=== PATIENT | male | born 1940 | race Caucasian/White ===

== ENCOUNTER 2018-11-16 12:06 | Emergency (ER) | payer MEDICARE, SELFPAY ==
[2018-11-16 12:07] VITALS: BP 130/99; PULSE 101; RESP 20; TEMP 36.1; O2SAT 97; BMI 26.7
--- NOTE | 2018-11-16 12:49 | ED.VISSUMM ---
- ER Visit Summary Date of Service: 11/16/18 Chief Complaint: [] Amputation tip of left thumb right hand dominant History of Present Illness: The patient is a 78 M [] history of heart disease diabetes hypertension on a blood thinner was working with a saw when he inadvertently suffered amputation complete of the left thumb tip, the laceration occurred about a half an hour ago no other complaints, he is right-handed Physical Examination: [] The patient is resting cuffing the bed he is very hard of hearing his blood pressure is 130/90 General, no distress resting comfortably HEENT is generally unremarkable The neck is supple no adenopathy Cardiovascular, regular rate and rhythm Lungs, clear bilateral Abdomen, soft nontender Extremities, left thumb he has a complete amputation left thumb tip it is just distal to the IP joint it involves the entire nail, the fragment is available it was carefully placed in the appropriate ICE non-wet container, he has minimal bleeding from the thumb stump the rest of the extremity and hand exam are unremarkable Neurologic, awake alert answering questions appropriately moving all 4 extremities Test Results: [] Emergency Department Course and Treatment: [] Cates for insurance reasons he needs to go to [facility], we spoke with the transfer service, spoke with the trauma attending who have accepted him in transfer they will arrange for him to be seen immediately by hand service in the ED,, the patient was started on IM Unasyn as he wants to be transferred by private vehicle Hep-Lock is obtained with screening labs will not delay his transfer to wait for these labs we will asked that he instruct his follow-up physicians to call for those results and will arrange for immediate transfer so he can be seen in an expedited fashion Treatment Plan: [] Disposition: [] Transfer via private vehicle to [facility] emergency department Impression: [] Complete amputation tip of left thumb This note was generated with [employer] dictation software. It may contain incorrect words, spelling, and punctuation that were not noted in review of the chart prior to signing ED Disposition - Plan for ED Patient: Chief Complaint: Upper Extremity Injury Referrals: Jose Clarke [Primary Care Provider] -
--- NOTE | 2018-11-16 12:54 | ED.DCSUM_ITS ---
- ER Visit Summary Date of Service: 11/16/18 Chief Complaint: [] Amputation tip of left thumb right hand dominant History of Present Illness: The patient is a 78 M [] history of heart disease diabetes hypertension on a blood thinner was working with a saw when he inadvertently suffered amputation complete of the left thumb tip, the laceration occurred about a half an hour ago no other complaints, he is right-handed Physical Examination: [] The patient is resting cuffing the bed he is very hard of hearing his blood pressure is 130/90 General, no distress resting comfortably HEENT is generally unremarkable The neck is supple no adenopathy Cardiovascular, regular rate and rhythm Lungs, clear bilateral Abdomen, soft nontender Extremities, left thumb he has a complete amputation left thumb tip it is just distal to the IP joint it involves the entire nail, the fragment is available it was carefully placed in the appropriate ICE non-wet container, he has minimal bleeding from the thumb stump the rest of the extremity and hand exam are unremarkable Neurologic, awake alert answering questions appropriately moving all 4 extremities Test Results: [] Emergency Department Course and Treatment: [] Cates for insurance reasons he needs to go to [facility], we spoke with the transfer service, spoke with the trauma attending who have accepted him in transfer they will arrange for him to be seen immediately by hand service in the ED,, the patient was started on IM Unasyn as he wants to be transferred by private vehicle Hep-Lock is obtained with screening labs will not delay his transfer to wait for these labs we will asked that he instruct his follow-up physicians to call for those results and will arrange for immediate transfer so he can be seen in an expedited fashion Treatment Plan: [] Disposition: [] Transfer via private vehicle to [facility] emergency department Impression: [] Complete amputation tip of left thumb This note was generated with [employer] dictation software. It may contain incorrect words, spelling, and punctuation that were not noted in review of the chart prior to signing ED Disposition - Plan for ED Patient: Chief Complaint: Upper Extremity Injury Referrals: Jose Clarke [Primary Care Provider] -
--- NOTE | 2018-11-16 12:54 | ED.DEP ---
ED Disposition - Plan for ED Patient: Chief Complaint: Upper Extremity Injury Instructions: ED Laceration Amputation Finger Tip Open Tx Referrals: Jose Clarke [Primary Care Provider] - Additional Instructions: Go directly to [facility] emergency department to be seen by hand and trauma service
[2018-11-16 13:00] LABS: Absolute Lymphocyte Count 2.51 X10^3/ul (0.83-4.51); Absolute Neutrophil Count 7.6 X10^3/uL (2.0-7.7); Basophil# 0.09 X10^3/uL; Basophil% 0.8 % (0-1); Eosinophil# 0.13 X10^3/uL; Eosinophils% 1.1 % (0-5); Hemoglobin 12.7 g/dl (13.0-16.5); Lymphocyte # 2.51 X10^3/ul (4.0); Mean Corp Hgb Conc 32.6 g/gl (32-36); Mean Corpuscular Hgb 30.1 pg (27.0-32.0); Mean Corpuscular Volume 92.4 fL (80-94); Mean Platelet Vol. 9.6 fl (6.2-12.0); Monocyte# 1.08 X10^3/uL; Monocyte% 9.4 % (0-10); Neutrophil # 7.59 X10^3/uL (2.7-7.7); Neutrophil % 66.4 % (47-70); Platelet Count 321 K/mm3 (150-450); RBC Distribution Width CV 13.4 % (11.6-14.6); RBC Distribution Width SD 45.1 fl (35.1-43.9); Red Blood Count 4.22 M/mm3 (4.6-6.2); White Blood Count 11.4 K/mm3 (4.4-11.0)
[2018-11-16 13:01] LABS: POSITIVE COUNT NO; POSITIVE DIFFERENTIAL NO; POSITIVE MORPHOLOGY NO
[2018-11-16] MEDS: Ondansetron 4 MG/2 ML Vial IV (13:02)
[2018-11-16] MEDS: Morphine 4 MG/ML Syringe IV (13:02)
--- NOTE | 2018-11-16 13:10 | RAD_ITS ---
STUDY: X-RAY - LEFT HAND REASON FOR EXAM: Male, 78 years old. Laceration of the thumb. TECHNIQUE: 3 view(s) of the hand. COMPARISON: None. FINDINGS: Normal radiocarpal articulation. Normal distal radioulnar joint. Normal visualized carpal bones. Normal carpal articulations Normal carpometacarpal articulation of the thumb. Normal second through fifth carpometacarpal joints. Normal metacarpi. Normal metacarpophalangeal joint of the thumb. Normal interphalangeal joint of the thumb. Comminuted fracture of the distal phalanx of the thumb. There is evidence of a soft tissue amputation of the distal portion of the thumb. Normal metacarpophalangeal joints of the second through fifth fingers. Normal proximal and distal interphalangeal joints of the second through fifth fingers. Normal phalanges of the second through fifth fingers. RAD/Hand Min 3 Views IMPRESSION: Comminuted nondisplaced fracture of the distal phalanx of the thumb with soft tissue amputation overlying the distal phalanx. Electronically Signed: Mario Valle MD at 14:07 EST , Service support ,
[2018-11-16 13:12] LABS: Prothrombin Time (Protime)PT. 12.7 SECONDS (11.7-14.9)
[2018-11-16 13:14] LABS: Anion Gap 9 (5-15); BUN 32 mg/dL (7-18); BUN/Creat Ratio 17.4 RATIO (10-20); Calcium,Total 8.4 mg/dL (8.5-10.1); Chloride 108 mmol/L (98-107); Creatinine, Serum 1.84 mg/dL (0.70-1.30); EST Glomerular Filtration Rate 38 mL/min (>60); Est Glom Filt Rate - Afr Amer 46 mL/min (>60); Glucose 61 mg/dL (74-106); Potassium 3.2 mmol/L (3.5-5.1); Sodium Level 142 mmol/L (136-145)
[2018-11-16 14:31] VITALS: BP 158/64; PULSE 85; RESP 16; O2SAT 94
--- NOTE | 2018-11-16 14:34 | NURSING ---
2 attempts to call to battery charger tester at [facility] to give report. no answer or message machine to leave call back number. [phone] catalino nunez, rn [id number]
== END 2018-11-16 15:52 | disposition short-term general hospital (02) ==
PROVIDERS: Emergency Provider Emergency Medicine; Family Provider Family Medicine; PCP Family Medicine
DX: S68.012A Complete traumatic metacarpophalangeal amputation of left thumb, initial encounter (principal); W27.0XXA Contact with workbench tool, initial encounter; Y93.9 Activity, unspecified; Y92.9 Unspecified place or not applicable; I25.10 Atherosclerotic heart disease of native coronary artery without angina pectoris; E11.9 Type 2 diabetes mellitus without complications; I10 Essential (primary) hypertension; Z79.82 Long term (current) use of aspirin; Z79.4 Long term (current) use of insulin; Z79.84 Long term (current) use of oral hypoglycemic drugs; Z79.899 Other long term (current) drug therapy
CPT/HCPCS: 73130; 80048; 85025; 85610; 96372; 96374; 96375; 99284; A4216; J0295; J2405

== ENCOUNTER 2020-06-13 10:42 | Emergency (ER) | payer MEDICARE, SELFPAY ==
[2020-06-13 10:43] VITALS: BP 146/72; PULSE 102; RESP 18; TEMP 36.1; O2SAT 96; BMI 22.8
[2020-06-13 10:44] VITALS: BP 146/72; PULSE 102; RESP 18; TEMP 36.1; O2SAT 96
--- NOTE | 2020-06-13 10:49 | ED.VIS.GEN ---
History of Present Illness <Mk Terry - Last Filed: 06/13/20 11:44> Informant: Patient Onset: Today Context: Gradual Onset Timing: Continuous Quality: Pressure Location: Bladder Current Severity: Severe Maximum Severity: Severe Worsened by: Nothing Relieved by: Nothing Associated Symptoms: Denies Narrative: 80-year-old male presents with difficulty urinating. He has not been able to empty his bladder since last evening. He has severe urge to urinate but is only able to urinate very small amounts. No history of prostate surgery or any issues with his prostate that he knows about. No history of abdominal surgery. He has no other symptoms at this time. No medication changes. No recent surgery Prior similar symptoms: No Recent Illness/Hospitalization: No <Arpit Navarro - Last Filed: 06/13/20 12:10> Chief Complaint: Complaint Past Medical History <Mk Terry - Last Filed: 06/13/20 11:44> Prior records reviewed: Yes Past Medical History: - - Hypertension and chronic kidney disease Surgical History: appendectomy Lives: With Family Smoking Status: Never smoker Alcohol: Occasional <LilliamdellaArpit - Last Filed: 06/13/20 12:10> - Allergies and Home Meds Allergies/Adverse Reactions: Allergies No Known Allergies Allergy (Verified 06/13/20 10:44) Primary Care Physician: Aniket Costa MD [STAFF PHYSICIAN] - As soon as possible Review of Systems General: Denies: Chills, Fever, Sweats Eyes: Denies: Visual changes - bilaterally, Diplopia ENT: Denies: Rhinorrhea, Sore throat Cardiovascular: Denies: Chest pain, Palpitations Respiratory: Denies: Dyspnea, Cough, Dyspnea on exertion Gastrointestinal: Denies: Abdominal pain, Nausea, Vomiting, Diarrhea, Melena, Hematochezia Genitourinary: Reports: - - Urinary retention. Denies: Dysuria, Hematuria, Frequency Musculoskeletal: Denies: Back pain, Extremity Pain Skin: Denies: Rash, Wounds Neurological: Denies: Headache, Weakness, Numbness <MelanieArpit - Last Filed: 06/13/20 12:10> Physical Exam Vital Signs/Narrative: Vital Signs Temp Pulse Resp BP Pulse Ox 06/13/20 10:44 97 F L 102 H 18 146/72 H 96 06/13/20 10:43 97 F L 102 H 18 146/72 H 96 <Mk Terry - Last Filed: 06/13/20 11:44> Vital Signs/Narrative: Vital Signs Temp Pulse Resp BP Pulse Ox 06/13/20 10:43 97 F L 102 H 18 146/72 H 96 Inital Vital Signs reviewed: Yes General: Well nourished, Well developed, No Acute Distress Head: Normocephalic, Atraumatic Eyes: Perrl, EOMI ENT: Moist mucous membranes, No rhinorrhea Neck: Supple, Nontender Cardiovascular: Regular rate, Regular rhythm, No murmurs Respiratory: No distress, CTA bilaterally, Chest nontender Abdomen: Soft, Nontender, Nondistended, Normal bowel sounds : - - Normal inspection no swelling no erythema no rash no gangrenous or necrotic tissue no inguinal lymphadenopathy no discharge no pain on palpation of either testicle Back: Nontender, Normal Inspection Extremities: Nontender, No edema Skin: Normal color, No rash Neurological: Alert, Oriented x3, Cranial nerves II-XII grossly intact, Normal Strength, Normal Sensation Psychological: Normal affect, Normal Mood <Arpit Navarro - Last Filed: 06/13/20 12:10> Diagnostic/Tx/Re-eval - Medical Decision Making I performed a history and physical examination of the patient and discussed management plan with the physician financial services assistant. I reviewed the physician financial services assistant's note and agree with the documented findings and plan of care. Patient with no history of urinary retention or known prostate issues. States he urinated a couple times before he went to bed and everything seemed normal. He has been unable to urinate since about . Valero catheter was placed without significant difficulty. Over 1200 cc of urine was removed. He has never had a PSA checked that he knows about and we will check that today. We will also check a urinalysis. Plan will be for urologic follow-up. Mk Terry DO, MS <Mk Terry - Last Filed: 06/13/20 11:44> - Medical Decision Making Urinalysis was unremarkable. We will place him on Bactrim. Urine culture was sent. He will be sent home with a leg bag. <Arpit Navarro - Last Filed: 06/13/20 12:10> ED Disposition <Mk Terry - Last Filed: 06/13/20 11:44> <Arpit Navarro - Last Filed: 06/13/20 12:10> - Plan for ED Patient: Disposition: Home or Assisted Living Diagnosis: Acute urinary retention Prescriptions: Smz/Tmp Ds [Bactrim Ds] 1 tab PO BID #14 tab Prescription Printed Referrals: Aniket Costa MD [STAFF PHYSICIAN] - As soon as possible
[2020-06-13 11:30] LABS: Bacteria 0 SEEN /hpf (None Seen); Mucous, Urine 0 SEEN /hpf (<or=2+); Squamous Epithelial Cells - UA 0 SEEN /hpf (0-5); White Blood Cells 0 SEEN /hpf (0-5)
[2020-06-13 11:33] LABS: Color, Urine Yellow (Yellow); Glucose, Dipstick Normal (Normal); Ketone-Dipstick Negative (Negative); Leukocyte Esterase-Dipstick Negative /ul (Negative); Nitrite-Dipstick Negative (Negative); Occult Blood-Urine 250 /ul (Negative); Protein-Dipstick Negative (Negative); Specific Gravity, Urine 1.005 (1.002-1.030); Urine Bilirubin Dipstick Negative (Negative); Urine Clarity Clear (Clear); Urine Urobilinogen Normal (Normal)
[2020-06-13 11:42] LABS: Red Blood Cells-Urine 25-50 SEEN /hpf (0-5)
[2020-06-13 11:44] VITALS: BP 146/72; PULSE 102; RESP 18; TEMP 36.1; O2SAT 96
[2020-06-13 12:19] LABS: PSA,Total - Annual Screen 3.11 ng/mL (0.00-4.00)
[2020-06-13 13:24] VITALS: RESP 16
--- NOTE | 2020-06-13 13:24 | ED.RN ---
REVIEWED D/C INSTRUCTIONS, FOLLOW UP CARE, PRESCRIPTION, CATHETER CARE, AND S/S THAT WOULD WARRANT A RETURN TO THE ED WITH PT. PT VERBALIZED AN UNDERSTANDING AND DENIES FURTHER QUESTIONS FOR THIS RN. PT SKIN P/W/D, RESP EVEN AND UNLABORED, PT A&O X 3, NO DISTRESS NOTED. PT AMBULATED OUT OF ED, GAIT STEADY.
== END 2020-06-13 13:26 | disposition home or self-care (01) ==
PROVIDERS: Emergency Provider Physician Assistant Medical; PCP Family Medicine
DX: R33.9 Retention of urine, unspecified (principal); I12.9 Hypertensive chronic kidney disease with stage 1 through stage 4 chronic kidney disease, or unspecified chronic kidney disease; N18.9 Chronic kidney disease, unspecified; Z12.5 Encounter for screening for malignant neoplasm of prostate; Z79.82 Long term (current) use of aspirin; Z79.899 Other long term (current) drug therapy
CPT/HCPCS: 36415; 51702; 81001; 84153; 87086; 87088; 87186; 99283; G0103

== ENCOUNTER 2020-08-13 10:04 | Day surgery (SDC) | payer MEDICARE, SELFPAY ==
--- NOTE | 2020-08-07 09:31 | EKG12_ITS ---
Test Reason : PRE OP Blood Pressure : / mmHG Vent. Rate : 072 BPM Atrial Rate : 072 BPM P-R Int : 000 ms QRS Dur : 134 ms QT Int : 440 ms P-R-T Axes : 038 045 042 degrees QTc Int : 481 ms Ventricular-paced rhythm Abnormal ECG Confirmed by PERLITA GUTIERREZ, BETZY ([id number]), city editor RADHA CAMACHO ([id number]) on 08/11/2020 8:55:35 A M Referred By: Aniket Costa Confirmed By:MAIRA BHAT MD
[2020-08-13] VITALS (17 sets, daily range): BP systolic 114–139; BP diastolic 47–64; PULSE 60–77; RESP 16–18; TEMP 36.3–36.8; O2SAT 93–100; BMI 22.7
[2020-08-13 10:37] LABS: Hematocrit 44.2 % (40-54); Hemoglobin 14.1 g/dL (13.0-16.5); Mean Corp Hgb Conc 31.9 g/dL (32-36); Mean Corpuscular Hgb 30.1 pg (27.0-32.0); Mean Corpuscular Volume 94.4 fL (80-94); Mean Platelet Vol. 9.6 fl (6.2-12.0); Platelet Count 404 K/mm3 (150-450); RBC Distribution Width CV 12.3 % (11.6-14.6); RBC Distribution Width SD 42.9 fl (35.1-43.9); Red Blood Count 4.68 M/mm3 (4.6-6.2); White Blood Count 9.5 K/mm3 (4.4-11.0)
[2020-08-13] MEDS: Lactated Ringers 1,000 ML 100 ML IV (10:49)
[2020-08-13 10:54] LABS: Partial Thromboplast Time 29.2 Seconds (24.1-36.2)
[2020-08-13 10:56] LABS: AST(SGOT) 23 U/L (15-37); Alanine Aminotransfer ALT/SGPT 29 U/L (16-61); Albumin, Serum 3.8 g/dL (3.2-5.0); Alkaline Phosphatase 94 U/L (45-117); Anion Gap 7 (5-15); BUN 31 mg/dL (7-18); BUN/Creat Ratio 19.5 RATIO (10-20); Bilirubin, Direct 0.21 mg/dL (0.00-0.30); Calcium,Total 8.8 mg/dL (8.5-10.1); Chloride 106 mmol/L (98-107); Creatinine, Serum 1.59 mg/dL (0.70-1.30); EST Glomerular Filtration Rate 45 mL/min (>60); Est Glom Filt Rate - Afr Amer 54 mL/min (>60); Estimated Creatinine Clearance 41.62 ml/min; Globulin 3.7 g/dL (2.2-4.2); Glucose 115 mg/dL (74-106); Potassium 3.6 mmol/L (3.5-5.1); Protein, Total 7.5 g/dL (6.4-8.2); Sodium Level 140 mmol/L (136-145)
[2020-08-13 11:10] LABS: Hemoglobin A1c 6.1 % (3.8-5.6)
[2020-08-13 11:11] LABS: Bedside Glucose 121 mg/dL (70-110)
--- NOTE | 2020-08-13 12:15 | HP.PCM_ITS ---
Problem List (1) BPH with obstruction/lower urinary tract symptoms Status: Acute History of Present Illness Date of Admission: 08/13/20 Chief Complaint: BPH with obstruction The patient is a 80 year old male who is developed retention of urine he has a catheter in place he is failed voiding trials and cystoscopy is found to have a very large obstructive prostate plan to proceed the transurethral resection of the prostate. Past Medical History Allergies No Known Allergies Allergy (Verified 08/13/20 10:29) Home Medications: Ambulatory Orders Medication Instructions Recorded Amlodipine [Norvasc] 10 mg PO DAILY 12/16/16 Atorvastatin Calcium [Lipitor] 80 mg PO QHS 12/16/16 Chlorthalidone 25 mg PO DAILY 12/16/16 Hydralazine HCl 25 mg PO TID 12/16/16 Insulin Glargine [Lantus (BKC)] 14 units SC QHS 12/16/16 Tamsulosin HCl [Flomax] 0.4 mg PO QHS 12/16/16 Aspirin [Aspirin, Baby] 81 mg PO DAILY 06/13/20 Lisinopril 40 mg PO QHS 06/13/20 Surgical History: appendectomy Smoking Status: Never smoker Tobacco Use: Non-smoker Review of Systems Constitutional: Denies: Chills, Fever, Weight Change HEENT: Denies: Head Aches, Sinus Congestion, Sinus Drainage Cardiovascular: Denies: Chest Pain, Palpitations Respiratory: Denies: Cough, Shortness of breath at rest, Sputum production Gastrointestinal: Denies: Abdominal Pain, Nausea, Vomiting Genitourinary: Denies: Dysuria Musculoskeletal: Denies: Joint Pain, Joint Tenderness Skin: Denies: Rash, Wounds Neurological: Denies: Numbness, Tingling, Focal weakness Psychiatric: Denies: Anxiety, Depression, Homicidal Ideations, Suicidal Ideations Hematologic/ Lymphatic: Denies: Easy Bruising, Easy Bleeding VTE Information - Inpt Only VTE Present on Admission: No - Physical Exam Vitals/I&O's: Vital Signs Temp Pulse Resp BP Pulse Ox 98.3 F 76 16 139/64 H 97 08/13/20 10:43 08/13/20 10:43 08/13/20 10:43 08/13/20 10:43 08/13/20 10:43 Oxygen Delivery Method Room Air Weight: 78.1 kg Body Mass Index (BMI) 22.7 General: Alert, Oriented x3, Cooperative HEENT: Atraumatic, PERRLA, EOMI, Normocephalic Neck: Supple, No JVD, Negative Carotid Bruits Lungs: Clear to auscultation, Normal air movement Cardiovascular: Regular rate, No murmurs Abdomen: Bowel Sounds Present, Soft, Non Tender Extremities: No edema, Capillary Refill Less than 3 Seconds Skin: No rashes, No breakdown Musculoskeletal: No Tenderness to Palpation of Joints or Extremities Neurological: Cranial nerves II-XII grossly intact Psych/Mental Status: Normal Affect, Appropriate Laboratory Results 08/13/20 10:25: WBC 9.5, RBC 4.68, Hgb 14.1, Hct 44.2, MCV 94.4 H, MCH 30.1, MCH C 31.9 L, RDW Std Deviation 42.9, RDW Coeff of Facundo 12.3, Plt Count 404, MPV 9.6 08/13/20 10:25: PT 13.0, INR 1.0, APTT 29.2 08/13/20 10:25: Sodium 140, Potassium 3.6, Chloride 106, Carbon Dioxide 27.0, Anion Gap 7, BUN 31 H, Creatinine 1.59 H, Estim Creat Clear Calc 41.62, Est GFR (MDRD) Af Amer 54 L, Est GFR (MDRD) Non-Af 45 L, BUN/Creatinine Ratio 19.5, Glucose 115 H, Calcium 8.8, Total Bilirubin 0.90, Direct Bilirubin 0.21, AST 23, ALT 29, Alkaline Phosphatase 94, Total Protein 7.5, Albumin 3.8, Globulin 3.7 08/13/20 10:25: Hemoglobin A1c 6.1 H 08/13/20 10:40: POC Glucose 121 H Current Medications Lactated Ringer's () 1,000 mls @ 100 mls/hr IV .Q10H ARNOLDO Last Admin: 08/13/20 10:49 Dose: 100 mls/hr Documented by: Assessment/Plan All Active Problems BPH with obstruction/lower urinary tract symptoms (Acute) Plan to proceed with TURP.
--- NOTE | 2020-08-13 12:15 | PROS_PTH ---
PATIENT: BRIAN OTERO [place] [facility] [place][id number] AGE/SX: 80/M ROOM: RE08/13/[address]: Dr. Aniket Costa MD : 1940 BED: DIS: 08/14/2020 SPEC #: [id number] RECD: 08/13/20 15:40 STATUS: TANVIR SHAHID #: [id number] GUILLERMO: 08/13/20 12:[address]: Aniket Costa DEPT: SURGICAL PATHOLOGY RECD BY: Crystal Hector ENTERED: 08/14/20 07:19 SP TYPE: TURP OTHR DR: Dr. Jose Clarke, DO Tissues: Prostate, NOS Procedures: Surgery Specimen Level IV HEADER OPERATION: Cysto, TUR prostate, Olympus PRE-OP DIAGNOSIS: BPH with obstruction, lower urinary tract symptoms TISSUE SUBMITTED: Prostate pieces MICROSCOPIC DIAGNOSIS Prostate pieces, TUR: Benign prostatic hyperplasia, glandular and stromal type (stromal component predominant). Focal mild chronic inflammation. SJ:chantel 08/15/20 MICROSCOPIC DESCRIPTION Slides are reviewed. GROSS DESCRIPTION Received is one container labeled with the patient's name and designated prostate pieces. The specimen consists of multiple irregular fragments of pink-aquino, rubbery, soft tissue that in aggregate weigh 39.3 gm and measure in aggregate 8 x 9 x 3.5 cm. The entire specimen is submitted in ten cassettes. / VANESSA:chantel 08/14/20 TC:5 CPT: 82069
--- NOTE | 2020-08-13 12:19 | DCINST_ITS ---
Discharge Diet: Light diet - advance as tolerated, Soft diet Discharge Activity: May Not Drive, May Shower Call your doctor if your incision/area has: Continuous Slow Oozing, Sudden Increased Bleeding, Increased Pain/ Swelling, Increased Redness, Foul Smelling Discharge, Swelling at the incision site Suture Line Care: Avoid Pulling/Pushing, Avoid Pinching/Bending Instructions: Transurethral Resection of the Prostate (TURP): Home Recovery Allergies/Adverse Reactions: Allergies No Known Allergies Allergy (Verified 08/13/20 10:29) Medications to take at Discharge Amlodipine [Norvasc] 10 mg PO DAILY 12/16/16 Atorvastatin Calcium [Lipitor] 80 mg PO QHS 12/16/16 Chlorthalidone 25 mg PO DAILY 12/16/16 Hydralazine HCl 25 mg PO TID 12/16/16 Insulin Glargine [Lantus SoloStar Pen] 14 units SC QHS 12/16/16 Tamsulosin HCl [Flomax] 0.4 mg PO QHS 12/16/16 Lisinopril 40 mg PO QHS 06/13/20 Ciprofloxacin [Cipro] 500 mg PO BID #14 tab 08/13/20 The following prescriptions were given: Ciprofloxacin [Cipro] 500 mg PO BID #14 tab Transmission Status: Pending to [address] Primary Care Physician: Jose Clarke DO [Primary Care Provider] - Test Results: Test results from this visit will be discussed in further detail at your follow- up appointment, if applicable. Please Follow Up With: Aniket Costa MD When: in 2 weeks, please call to make an appointment. Proposed Discharge Date: 08/14/20
[2020-08-13] MEDS: 0.9% Normal Saline 1,000 ML 125 ML IV ×2 (12:20→18:54)
[2020-08-13] MEDS: Cefazolin 2 GM in 0.9% Normal Saline 100 ML IV (12:24)
--- NOTE | 2020-08-13 13:44 | OP.PCM_ITS ---
Problem List (1) BPH with obstruction/lower urinary tract symptoms Status: Acute Report of Operation Date of Procedure: 08/13/20 Pre-Operative Diagnosis: BPH with obstruction Post-Operative Diagnosis: Same Surgery/Procedure Performed:: Transurethral section of the prostate Description of Surgical Findings:: 80-year-old male has been having difficulty with urination had an episode of ret ention he was found to have extremely large prostate bilateral hypertrophy large median lobe so we will proceed with a transurethral resection of the prostate. Patient was taken back to the operating room at the smooth induction of general anesthesia he was placed in dorsolithotomy position. The penis and testicles were prepped and draped in usual sterile fashion. Went into the bladder with a 26 [place] continuous-flow resectoscope. He had a very large obstructive prostate large median lobe bilateral hypertrophy. I then started resecting the prostate resected the right lobe of the prostate and the left lobe the prostate I then resected the median lobe. I then Ellik out all the chips. I then obtained hemostasis as best as possible and the put a catheter in bladder continuous irrigation the urine was light pink color with irrigation. At the end of the procedure and resected the obstructive tissue had a nice wide open channel from the verumontanum all the way into the bladder neck. The left and right ureter orifice were clear. All the chips throughout the bladder and the resection time was about an hour and a half. Type of Anesthesia:: General Drains: 22 [place] three-way cath - Admit VTE Documentation VTE Present on Admission: No
[2020-08-13 15:55] LABS: Bedside Glucose 120 mg/dL (70-110)
[2020-08-13] MEDS: 0.9% Saline Lock 10 ML Syringe IV (18:54)
[2020-08-13] MEDS: Atorvastatin Calcium 80 MG Tablet PO (21:42)
[2020-08-13] MEDS: Docusate Sodium 100 MG Capsule PO (21:43)
[2020-08-13] MEDS: Tamsulosin HCl 0.4 MG Capsule PO (21:43)
[2020-08-13] MEDS: Lisinopril 40 MG Tablet PO (21:43)
[2020-08-13] MEDS: hydrALAZINE 25 MG Tablet PO (21:43)
[2020-08-13] MEDS: Ciprofloxacin 400 MG/200 ML BAG 200 MG IV (21:44)
[2020-08-13 21:55] LABS: Bedside Glucose 202 mg/dL (70-110)
[2020-08-14 02:11] VITALS: BP 122/71; PULSE 72; RESP 18; TEMP 37; O2SAT 94
[2020-08-14] MEDS: 0.9% Normal Saline 1,000 ML 125 ML IV (03:24)
[2020-08-14 06:11] VITALS: PULSE 72
[2020-08-14] MEDS: hydrALAZINE 25 MG Tablet PO (06:11)
[2020-08-14 07:14] LABS: Hematocrit 33.9 % (40-54); Hemoglobin 10.7 g/dL (13.0-16.5); Mean Corp Hgb Conc 31.6 g/dL (32-36); Mean Corpuscular Hgb 30.6 pg (27.0-32.0); Mean Corpuscular Volume 96.9 fL (80-94); Mean Platelet Vol. 10.5 fl (6.2-12.0); Platelet Count 323 K/mm3 (150-450); RBC Distribution Width CV 12.4 % (11.6-14.6); White Blood Count 11.9 K/mm3 (4.4-11.0)
[2020-08-14 07:36] LABS: Anion Gap 5 (5-15); BUN 30 mg/dL (7-18); BUN/Creat Ratio 21.6 RATIO (10-20); Chloride 113 mmol/L (98-107); Creatinine, Serum 1.39 mg/dL (0.70-1.30); EST Glomerular Filtration Rate 52 mL/min (>60); Est Glom Filt Rate - Afr Amer 63 mL/min (>60); Glucose 72 mg/dL (74-106); Potassium 3.7 mmol/L (3.5-5.1); Sodium Level 144 mmol/L (136-145)
[2020-08-14 07:40] LABS: Bedside Glucose 74 mg/dL (70-110)
[2020-08-14 08:15] VITALS: BP 133/48; PULSE 72; RESP 18; TEMP 36.4; O2SAT 98
[2020-08-14 08:16] VITALS: O2SAT 95
[2020-08-14] MEDS: Ciprofloxacin 400 MG/200 ML BAG 200 MG IV (10:19)
[2020-08-14] MEDS: Docusate Sodium 100 MG Capsule PO (10:21)
[2020-08-14] MEDS: Pantoprazole Sodium 40 MG Tablet PO (10:21)
[2020-08-14] MEDS: Chlorthalidone 50 MG Tablet 25 MG PO (10:22)
[2020-08-14] MEDS: amLODIPine 10 MG Tablet PO (10:22)
[2020-08-14 11:46] LABS: Bedside Glucose 200 mg/dL (70-110)
[2020-08-14 14:16] VITALS: BP 160/57; PULSE 74; RESP 16; TEMP 37.2; O2SAT 94
== END 2020-08-14 14:17 | disposition home or self-care (01) ==
LOC: SDC 10:04 → AC 10:06 → MS3 08-18 09:01
PROVIDERS: Anesthesiology; PCP Family Medicine; Referring Provider Urology; Visit Provider Urology
PROC: (CPT 52601; principal; 2020-08-13 12:05)
DX: N40.1 Benign prostatic hyperplasia with lower urinary tract symptoms (principal); N13.8 Other obstructive and reflux uropathy; R33.8 Other retention of urine; Z11.59 Encounter for screening for other viral diseases; I25.2 Old myocardial infarction; I12.9 Hypertensive chronic kidney disease with stage 1 through stage 4 chronic kidney disease, or unspecified chronic kidney disease; E11.22 Type 2 diabetes mellitus with diabetic chronic kidney disease; N18.9 Chronic kidney disease, unspecified; E78.00 Pure hypercholesterolemia, unspecified; Z95.5 Presence of coronary angioplasty implant and graft; Z79.4 Long term (current) use of insulin; Z79.82 Long term (current) use of aspirin; Z79.899 Other long term (current) drug therapy
CPT/HCPCS: 00914; 52601; 36415; 80048; 80076; 82962; 83036; 85027; 85610; 85730; 87635; 88305; 93005; 94762; 99251; C9803; J7030; J7120; A4216; G0463; J0744; J2405; U0003

== ENCOUNTER 2021-04-23 15:25 | Inpatient (IN) | payer MEDICARE, SELFPAY ==
[2020-08-13 16:24] VITALS: BMI 22.7
[2021-04-23] VITALS (7 sets, daily range): BP systolic 153–158; BP diastolic 53–59; PULSE 89–107; RESP 18; TEMP 36.9–37.2; O2SAT 87–94; BMI 23.0
--- NOTE | 2021-04-23 15:28 | PCM.HP.STD ---
[facility] - General General Date of Admission: 04/23/21 Date of Service: 04/23/21 Chief Complaint: Fever, shortness of breath. HPI Narrative BRIAN OTERO, is a 81 M with past medical history as mentioned below was directly admitted from outside facility for pneumonia. Patient symptoms started 2 days ago with fever of up to 102 Fahrenheit at home, associated with chills and malaise as well as shortness of breath. Patient reported mild shortness of breath, mainly upon activity, no associated cough or sputum production but associated with weakness and fatigue and without aggravating or relieving factors. He reported diarrhea yesterday twice. Denied abdominal pain, nausea or vomiting. He complains of epigastric pain but has been improving. At the outside facility, patient was febrile, slightly tachycardic, blood pressure was slightly elevated, pulse ox was maintained on room air. His routine blood work at the outside facility was remarkable for significant leukocytosis, potassium of 3.1, BUN is 34, creatinine is 2.424. Lactic acid was 1.6. EKG revealed paced rhythm, no acute changes. Chest x-ray showed no obvious infiltrate or consolidation. CT scan abdomen and pelvis showed right lower lobe consolidation. Patient received 1 dose of IV Rocephin and Zithromax at the outside facility. He is being admitted for right lower lobe community-acquired pneumonia and acute kidney injury on top of stage IIIb chronic kidney disease. [facility] Medical History (Updated 04/23/21 @ 15:[address] Guy Waldron MD) Kidney disease Myocardial infarct Pacemaker Home Medications amlodipine 10 mg PO DAILY 12/16/16 [History Last Taken 04/22/21 21:00] atorvastatin 80 mg PO QHS 12/16/16 [History Last Taken Unknown] chlorthalidone 40 mg PO DAILY 12/16/16 [History Last Taken Unknown] hydralazine 25 mg PO TID 12/16/16 [History Last Taken 04/22/21 21:00] lisinopril 40 mg PO QHS 06/13/20 [History Last Taken 04/22/21 21:00] aspirin 81 mg PO DAILY 04/23/21 [History Last Taken 04/22/21 08:00] glimepiride 0.5 mg PO DAILY 04/23/21 [History Last Taken Unknown] Allergy/AdvReac Type Severity Reaction Status Date / Time No Known Allergies Allergy Verified 08/13/20 10:29 no significant family history Surgical History (Updated 04/23/21 @ 15:[address] uGy Waldron MD) H/O cardiac catheterization History of coronary artery stent placement Status post placement of cardiac pacemaker Social History Smoking Status: Never smoker ROS Constitutional Constitutional: Reports chills, fever(s), malaise and weakness; Denies anorexia or fatigue Eyes Eyes: Denies blurry vision, change in eye color, change in vision, double vision or eye pain ENT HEENT: Denies ear discharge, ear pain, epistaxis, headache(s), nasal congestion, post nasal drip or sore throat Cardiovascular Cardiovascular: Reports dyspnea on exertion; Denies chest pain, edema, lightheadedness, orthopnea, palpitations or syncope Respiratory/Chest Respiratory/Chest: Reports dyspnea and shortness of breath with exertion; Denies cough, hemoptysis, productive cough or wheezing Gastrointestinal Gastrointestinal: Reports abdominal pain and diarrhea; Denies constipation, hematemesis, hematochezia, melena, nausea or vomiting Genitourinary Genitourinary: Denies burning urination, dysuria, hematuria, urinary hesitancy or urinary urgency Musculoskeletal Musculoskeletal: Denies arthralgias, back pain, joint pain, joint swelling, myalgias or neck pain Neurologic Neurologic: Denies confusion, dizziness, focal weakness, headache(s), numbness, paresthesias, seizures, tingling, tremor(s) or vertigo Psychiatric Psychiatric: Denies anxiety, depression, hallucinations, homicidal ideation or suicidal ideation Endocrine Endocrinology: Denies change in body appearance, cold intolerance, heat intolerance, polydipsia or polyuria Hematologic/Lymphatic Hematologic/Lymphatic: Denies easy bleeding, easy bruising or lymphadenopathy Allergic/Immunologic Allergic/Immunologic: Denies itchy eyes, rhinitis, throat swelling, tongue swelling, hives, urticaria or wheezing Vital Signs Vital Signs Vital Signs: 04/23/21 14:30 Temperature 98.5 F Temperature Source Oral Pulse Rate 107 H Respiratory Rate 18 Blood Pressure 158/53 H Blood Pressure Mean 88 Blood Pressure Source Monitor Blood Pressure Position Semi-Fowlers Blood Pressure Location Left Arm Pulse Ox 94 Oxygen Delivery Method Room Air Weight Weight: 174 lb 4.8 oz Body Mass Index (BMI) 23.0 Physical Exam Const alert, oriented x3, no apparent distress and no limitations General Appearance: cooperative HEENT normocephalic, head/scalp atraumatic, external ears normal, external nose normal and moist oral mucous membranes Eyes PERRL, EOMs intact bilaterally, conjunctivae normal and no scleral icterus General Eye: normal appearance of both eyes Neck no lymphadenopathy, supple, no meningeal signs, no JVD and no carotid bruits Lymph Lymphatic: no lymphadenopathy noted Resp normal respiratory effort and normal air movement Resp Narrative: Decreased breath sounds at the bases, coarse crackles at the right base. Auscultation: Negative for crackles, rales, rhonchi or wheezes Cardio regular rate, regular rhythm, S1 normal heart sound, S2 normal heart sound, no murmurs and no JVD GI normal to inspection, nondistended, normoactive bowel sounds, soft to palpation, non-tender and non-distended; Negative for hepatosplenomegaly Extremity normal to inspection, full ROM and no clubbing, cyanosis or edema Skin no rashes or lesions noted, no wounds and no petechiae Neuro oriented x3, CN's II-XII intact bilaterally and moves all extremities Sensorium / Orientation: alert Speech: speech normal Motor Exam: strength 5/5 throughout Psych mental status grossly normal and affect normal Appearance: appropriate Results Lab / Micro Data Lab results narrative: WBC 16.5, hemoglobin is 13, platelet count is 339,000. Potassium 3.1, BUN is 34, creatinine is 2.24. Assessment & Plan Assessment/Plan (1) Status post placement of cardiac pacemaker: (2) Acute kidney injury superimposed on CKD: (3) Community acquired pneumonia: (4) Stage 3b chronic kidney disease: (5) Coronary artery disease: (6) Benign prostatic hyperplasia: (7) HTN (hypertension): (8) Diabetes mellitus, type 2: (9) Sepsis: PLAN: This is an 81 years old male patient was directly admitted from outside facility for symptoms of fever, shortness of breath with chills, found to have right lower lobe consolidation on CT scan abdomen consistent with community-acquired pneumonia and also found to have JC on CKD. #1 right lower lobe community-acquired pneumonia/sepsis: Chest x-ray was unremarkable. CT scan abdomen revealed right lower lobe consolidation. Patient does have leukocytosis, tachycardic with evidence of infection. Lactic acid was normal. COVID-19 by antigen was negative at the outside facility. Plan: Admit to PCU, cardiac monitoring, blood culture, urine culture, IV fluids, Tylenol as needed, Zofran as needed, continue IV Rocephin and Zithromax, repeat CBC and CMP tomorrow morning, PT OT evaluation and treatment. #2 acute kidney injury on top of stage IIIb chronic disease: Baseline creatinine has been around 1.3 to 1.8 mg/dL. Admission creatinine is 2.24. Plan: Gentle IV fluids for hydration, input output chart, avoid nephrotoxic drugs, repeat BMP tomorrow morning. #3 CAD status post stents: EKG reviewed, unremarkable. Patient denied any chest pain. Continue aspirin, statins and lisinopril. #4 type 2 diabetes mellitus: ADA diet, Accu-Cheks, insulin scale, continue glimepiride. #5 hypertension: Blood pressure slightly better, continue Norvasc, continue hydralazine, hold lisinopril and chlorthalidone. #6 benign prostatic hypertrophy: Continue Flomax. #7 DVT prophylaxis: Subcu heparin. This note was generated with [employer] dictation software. It may contain incorrect words, spelling, and punctuation that were not noted in checking the note before signing. Charges/Coding Visit Charges Inpatient E&M: 00984 Init Hosp L3
[2021-04-23] MEDS: 0.9% Normal Saline 1,000 ML 75 ML IV (16:03)
[2021-04-23] MEDS: 0.9% Saline Lock 10 ML Syringe IV ×2 (16:03→16:52)
[2021-04-23] MEDS: Ondansetron 4 MG/2 ML Vial IV (16:03)
[2021-04-23 16:45] LABS: Lipase 129 U/L (73-393)
[2021-04-23 16:50] LABS: Bedside Glucose 111 mg/dL (70-110)
[2021-04-23] MEDS: Ceftriaxone 1 GM/50 ML BAG IV (16:52)
[2021-04-23] MEDS: Acetaminophen 325 MG Tablet 650 MG PO (20:01)
[2021-04-23] MEDS: Heparin Injection (Vial) 5,000 UNIT/ML VIAL 5000 UNIT SC (21:26)
[2021-04-23] MEDS: Lisinopril 40 MG Tablet PO (21:26)
[2021-04-23] MEDS: Atorvastatin Calcium 80 MG Tablet PO (21:26)
[2021-04-23] MEDS: Famotidine 20 MG Tablet PO (21:26)
[2021-04-23] MEDS: hydrALAZINE 25 MG Tablet PO (21:26)
[2021-04-23 22:11] LABS: Bedside Glucose 136 mg/dL (70-110)
[2021-04-24] VITALS (14 sets, daily range): BP systolic 111–124; BP diastolic 49–56; PULSE 71–128; RESP 18–22; TEMP 36.6–38.2; O2SAT 91–94
[2021-04-24] MEDS: Heparin Injection (Vial) 5,000 UNIT/ML VIAL 5000 UNIT SC ×3 (05:12→20:22)
[2021-04-24] MEDS: hydrALAZINE 25 MG Tablet PO ×3 (05:12→20:21)
[2021-04-24] MEDS: 0.9% Normal Saline 1,000 ML 75 ML IV ×2 (05:12→20:22)
[2021-04-24 05:56] LABS: Absolute Lymphocyte Count 0.98 X10^3/uL (0.83-4.51); Absolute Neutrophil Count 10.1 X10^3/uL (2.0-7.7); Basophil# 0.05 X10^3/uL; Basophil% 0.4 % (0-1); Eosinophil# 0.04 X10^3/uL; Eosinophils% 0.3 % (0-5); Hematocrit 32.7 % (40-54); Hemoglobin 10.5 g/dL (13.0-16.5); Lymphocyte # 0.98 X10^3/ul (0.83-4.51); Lymphocyte % 7.6 % (19-41); Mean Corp Hgb Conc 32.1 g/dL (32-36); Mean Corpuscular Hgb 29.7 pg (27.0-32.0); Mean Corpuscular Volume 92.6 fL (80-94); Mean Platelet Vol. 10.4 fl (6.2-12.0); Monocyte# 1.61 X10^3/uL; Monocyte% 12.5 % (0-10); NRBC Flagged by Analyzer 0 % (0-5); Neutrophil # 10.07 X10^3/uL (2.7-7.7); Neutrophil % 78.5 % (47-70); POSITIVE DIFFERENTIAL YES; Platelet Count 308 K/mm3 (150-450); RBC Distribution Width SD 44.1 fl (35.1-43.9); Red Blood Count 3.53 M/mm3 (4.6-6.2); White Blood Count 12.8 K/mm3 (4.4-11.0)
[2021-04-24 06:00] LABS: Differential Indicated SCAN CRITERIA MET
[2021-04-24 06:23] LABS: ALB/GLOB Ratio 0.7 RATIO (0.9-2.4); AST(SGOT) 19 U/L (15-37); Alanine Aminotransfer ALT/SGPT 14 U/L (16-61); Albumin, Serum 2.3 g/dL (3.2-5.0); Alkaline Phosphatase 66 U/L (45-117); Anion Gap 7 (5-15); BUN 33 mg/dL (7-18); BUN/Creat Ratio 17.6 RATIO (10-20); Calcium,Total 7.7 mg/dL (8.5-10.1); Chloride 107 mmol/L (98-107); Creatinine, Serum 1.87 mg/dL (0.70-1.30); EST Glomerular Filtration Rate 37 mL/min (>60); Est Glom Filt Rate - Afr Amer 45 mL/min (>60); Estimated Creatinine Clearance 35.23 ml/min; Globulin 3.3 g/dL (2.2-4.2); Glucose 89 mg/dL (74-106); Potassium 2.9 mmol/L (3.5-5.1); Protein, Total 5.6 g/dL (6.4-8.2); Sodium Level 139 mmol/L (136-145)
[2021-04-24 06:30] LABS: Bedside Glucose 108 mg/dL (70-110)
[2021-04-24] MEDS: Ceftriaxone 1 GM/50 ML BAG IV (08:31)
[2021-04-24] MEDS: Potassium Chloride 10mEq/100mL 10 MEQ/100 ML IV.SOLN. 100 MEQ IV BOLUS ×4 (08:34→13:29)
[2021-04-24] MEDS: Aspirin E.C. 81 MG Tablet PO (08:40)
[2021-04-24] MEDS: amLODIPine 10 MG Tablet PO (08:40)
[2021-04-24] MEDS: Glimepiride 1 MG Tablet 0.5 MG PO (08:40)
[2021-04-24] MEDS: Famotidine 20 MG Tablet PO ×2 (08:41→20:22)
--- NOTE | 2021-04-24 10:45 | CASEMGMT ---
RN AJAY Face to Face with patient for initial transition planning/care coordination assessment. RN CM introduced self and role at [facility]. Patient lying in bed, alert and oriented. Patient willing to participate in assessment and is able to answer all questions appropriately. Care providers, pharmacy, and demographics verified. Patient wishes to discharge home, denies need for home health at this time. Patient states he has no further needs or concerns at this time. CM to follow for discharge planning needs that may arise. PCP: Vince Specialists: Gail hull sorter; Arsalan switch operators supervisor Preferred Pharmacy: [facility] Insurance: [facility] Prescription Benefit: yes Living Will/HPOA: yes daughter, Paz Fonseca LNOK: son, daughter Living Arrangements: Patient lives with son in a 2 story home with bed and bath on first floor. 2 steps and railing to enter the home. Patient states is independent at home. Transportation: self/son DME/HHC: Patient states he has cane, walker, and raised toilet at home. No previous HHC or SNF. Patient has no preferences for DME. Disposition Plan: Patient to discharge home with family support and follow-up plans in place. Shantell RENAE, RN, CM
[2021-04-24 12:00] LABS: Bedside Glucose 118 mg/dL (70-110)
[2021-04-24 12:42] LABS: Pathologist Review Reviewed
--- NOTE | 2021-04-24 13:09 | PCM.PN.HOSP ---
Documented by User: Brandy Garza NP, AMPHIBIAN CREWMEMBER-C 04/24/21 13:26 Subjective Subjective Patient seen and examined. Denies significant shortness of breath. Reports nonproductive cough. Complains of diarrhea which began this morning. Mild nausea, no emesis. Objective Data Objective Data Vital Signs: Vital Signs Temp Pulse Resp BP Pulse Ox 100.7 F H 76 18 118/53 L 94 04/24/21 08:36 04/24/21 08:36 04/24/21 08:36 04/24/21 08:36 04/24/21 08:36 Oxygen Flow Rate (L/min) 2 Oxygen Delivery Method Nasal Cannula Weight: 174 lb 4.8 oz Body Mass Index (BMI) 23.0 Intake & Output: Intake and Output for Last 24 Hours 04/22/21 04/23/21 04/24/21 23:59 23:59 23:59 Intake Total 933.75 / 933.75 1692.5 / 1692.5 Output Total 450 / 450 Balance 483.75 / 483.75 1692.5 / 1692.5 Lab / Micro Data Result Diagrams: 04/24/21 05:05 04/24/21 05:05 Labs: Laboratory Results - last 24 hr 04/23/21 04/23/21 04/23/21 16:07 16:13 21:25 WBC RBC Hgb Hct MCV MCH MCHC RDW Std Deviation RDW Coeff of Facundo Plt Count MPV Immature Gran % (Auto) Neut % (Auto) Lymph % (Auto) [place] % (Auto) Eos % (Auto) Baso % (Auto) Absolute Neuts (auto) Absolute Lymphs (auto) Nucleated RBC % Diff Path Review Sodium Potassium Chloride Carbon Dioxide Anion Gap BUN Creatinine Estim Creat Clear Calc Est GFR (MDRD) Af Amer Est GFR (MDRD) Non-Af BUN/Creatinine Ratio Glucose Calcium Total Bilirubin AST ALT Alkaline Phosphatase Total Protein Albumin Globulin Albumin/Globulin Ratio Lipase 129 POC Glucose 111 H 136 H 04/24/21 04/24/21 04/24/21 05:05 05:05 06:23 WBC 12.8 H RBC 3.53 L Hgb 10.5 L Hct 32.7 L MCV 92.6 MCH 29.7 MCHC 32.1 RDW Std Deviation 44.1 H RDW Coeff of Facundo 13.0 Plt Count 308 MPV 10.4 Immature Gran % (Auto) 0.700 Neut % (Auto) 78.5 H Lymph % (Auto) 7.6 L [place] % (Auto) 12.5 H Eos % (Auto) 0.3 Baso % (Auto) 0.4 Absolute Neuts (auto) 10.1 H Absolute Lymphs (auto) 0.98 Nucleated RBC % 0 Diff Path Review Reviewed Sodium 139 Potassium 2.9 L Chloride 107 Carbon Dioxide 25.0 Anion Gap 7 BUN 33 H Creatinine 1.87 H Estim Creat Clear Calc 35.23 Est GFR (MDRD) Af Amer 45 L Est GFR (MDRD) Non-Af 37 L BUN/Creatinine Ratio 17.6 Glucose 89 Calcium 7.7 L Total Bilirubin 0.40 AST 19 ALT 14 L Alkaline Phosphatase 66 Total Protein 5.6 L Albumin 2.3 L Globulin 3.3 Albumin/Globulin Ratio 0.7 L Lipase POC Glucose 108 04/24/21 11:45 WBC RBC Hgb Hct MCV MCH MCHC RDW Std Deviation RDW Coeff of Facundo Plt Count MPV Immature Gran % (Auto) Neut % (Auto) Lymph % (Auto) [place] % (Auto) Eos % (Auto) Baso % (Auto) Absolute Neuts (auto) Absolute Lymphs (auto) Nucleated RBC % Diff Path Review Sodium Potassium Chloride Carbon Dioxide Anion Gap BUN Creatinine Estim Creat Clear Calc Est GFR (MDRD) Af Amer Est GFR (MDRD) Non-Af BUN/Creatinine Ratio Glucose Calcium Total Bilirubin AST ALT Alkaline Phosphatase Total Protein Albumin Globulin Albumin/Globulin Ratio Lipase POC Glucose 118 H Physical Exam Const alert, oriented x3 and no apparent distress Orientation / Consciousness: awake, oriented to person, oriented to place and oriented to time HEENT normocephalic and moist oral mucous membranes Eyes PERRL, EOMs intact bilaterally and conjunctivae normal Neck no lymphadenopathy Resp Auscultation: crackles right base and diminished lung sounds Cardio regular rate, regular rhythm and no murmurs Peripheral Pulses: pulses 2+ throughout GI normal to inspection, nondistended, normoactive bowel sounds, non-tender and non-distended Extremity normal to inspection Skin no rashes or lesions noted Lesions: no lesions Rashes: no rashes Trauma: no lacerations or abrasions Neuro CN's II-XII intact bilaterally, no focal motor deficits, no sensory deficits noted and deep tendon reflexes 2+ bilaterally Psych mental status grossly normal and affect normal Assessment & Plan Assessment/Plan (1) Sepsis: (2) Community acquired pneumonia: (3) Acute kidney injury superimposed on CKD: PLAN: 1. Sepsis secondary to right lower lobe community-acquired pneumonia-IV azithromycin and IV Rocephin. Currently on 2 L nasal cannula. Wean oxygen as tolerated. Albuterol DuoNeb aerosols. Blood cultures pending. 2. Acute kidney injury on chronic kidney disease stage IIIb- IV fluids, trend BMP. 3. Hypokalemia-replaced per protocol, trend BMP. 4. CAD with history of stents-continue aspirin, statin. 5. Type 2 diabetes [id number] with sliding scale insulin. On glimepiride as well. 6. Hypertension-stable, continue Norvasc, hydralazine. Lisinopril/chlorthalidone on hold. 7. BPH-on Flomax. DVT prophylaxis-heparin subcu This patient was seen by ADDISON Gonsales under the supervision of Dr. Reynolds. Documented by User: Dr. Camilla Reynolds MD 04/24/21 16:37 Objective Data Lab / Micro Data Result Diagrams: 04/24/21 05:05 04/24/21 05:05 Charges/Coding Addendum Addendum: Patient seen by Brandy JAIME under my supervision Patient seen and examined. He was admitted as a transfer from outside hospital for right lower lobe community-acquired pneumonia. He feels better and has no complaints today. He denies shortness of breath, palpitations or dizziness, nausea vomiting but did admit to diarrhea. Temperature is 100.1 ?F. Review of systems otherwise negative. O/E: Const alert, oriented x3 and no apparent distress Orientation / Consciousness: awake, oriented to person, oriented to place and oriented to time HEENT normocephalic and moist oral mucous membranes Eyes PERRL, EOMs intact bilaterally and conjunctivae normal Neck no lymphadenopathy Resp Auscultation: diminished breath sounds in right lower lung nielsen, no wheezes or crackles. on 2L of oxygen Cardio regular rate, regular rhythm and no murmurs Peripheral Pulses: pulses 2+ throughout GI normal to inspection, nondistended, normoactive bowel sounds, non-tender and non-distended Extremity normal to inspection Skin no rashes or lesions noted Lesions: no lesions Rashes: no rashes Trauma: no lacerations or abrasions Neuro CN's II-XII intact bilaterally, no focal motor deficits, no sensory deficits noted and deep tendon reflexes 2+ bilaterally Psych mental status grossly normal and affect normal Patient has been managed for sepsis due to right lower lobe community-acquired pneumonia. On IV ceftriaxone and azithromycin. Titrate oxygen to maintain saturation above 90%. Continue gentle hydration with IV fluids for JC on CKD stage IIIb. Check for stool for ova and parasites as well as enteric panel. If diarrhea persists, check for C. difficile. On heparin for DVT prophylaxis. Potassium is 2.9 today and has been aggressively replaced. Rest as per Brandy Garza NP-C's note which I reviewed and endorsed. Visit Charges Inpatient E&M: 34530 Subs Hosp L3
[2021-04-24 16:35] LABS: Bedside Glucose 84 mg/dL (70-110)
[2021-04-24] MEDS: Acetaminophen 325 MG Tablet 650 MG PO (19:22)
[2021-04-24] MEDS: Atorvastatin Calcium 80 MG Tablet PO (20:21)
[2021-04-24] MEDS: Lisinopril 40 MG Tablet PO (20:21)
[2021-04-24 20:36] LABS: Bedside Glucose 152 mg/dL (70-110)
[2021-04-24 23:23] LABS: Anion Gap 6 (5-15); BUN 30 mg/dL (7-18); BUN/Creat Ratio 16.9 RATIO (10-20); Calcium,Total 7.6 mg/dL (8.5-10.1); Chloride 108 mmol/L (98-107); Creatinine, Serum 1.78 mg/dL (0.70-1.30); EST Glomerular Filtration Rate 39 mL/min (>60); Est Glom Filt Rate - Afr Amer 48 mL/min (>60); Estimated Creatinine Clearance 37.01 ml/min; Glucose 142 mg/dL (74-106); Potassium 2.9 mmol/L (3.5-5.1); Sodium Level 139 mmol/L (136-145)
[2021-04-25] VITALS (15 sets, daily range): BP systolic 128–146; BP diastolic 56–66; PULSE 63–76; RESP 18; TEMP 36.4–37.1; O2SAT 90–95
[2021-04-25] MEDS: Potassium Chloride Oral Tablet 20 MEQ 40 MEQ PO ×3 (00:26→16:35)
[2021-04-25 06:13] LABS: Absolute Lymphocyte Count 1.08 X10^3/uL (0.83-4.51); Absolute Neutrophil Count 6.5 X10^3/uL (2.0-7.7); Basophil# 0.06 X10^3/uL; Basophil% 0.7 % (0-1); Eosinophil# 0.05 X10^3/uL; Eosinophils% 0.5 % (0-5); Hematocrit 33.2 % (40-54); Hemoglobin 10.8 g/dL (13.0-16.5); Lymphocyte # 1.08 X10^3/ul (0.83-4.51); Lymphocyte % 11.8 % (19-41); Mean Corp Hgb Conc 32.5 g/dL (32-36); Mean Corpuscular Hgb 29.9 pg (27.0-32.0); Mean Platelet Vol. 9.8 fl (6.2-12.0); Monocyte# 1.38 X10^3/uL; NRBC Flagged by Analyzer 0 % (0-5); Neutrophil # 6.53 X10^3/uL (2.7-7.7); Neutrophil % 71.1 % (47-70); Platelet Count 306 K/mm3 (150-450); RBC Distribution Width CV 13.1 % (11.6-14.6); RBC Distribution Width SD 44.3 fl (35.1-43.9); Red Blood Count 3.61 M/mm3 (4.6-6.2); White Blood Count 9.2 K/mm3 (4.4-11.0)
--- NOTE | 2021-04-25 06:24 | EKG12_ITS ---
Test Reason : V-TACH Blood Pressure : / mmHG Vent. Rate : 075 BPM Atrial Rate : 075 BPM P-R Int : 124 ms QRS Dur : 142 ms QT Int : 446 ms P-R-T Axes : 044 057 016 degrees QTc Int : 498 ms Sinus rhythm with frequent ventricular-paced complexes and Premature atrial complexes Right bundle branch block Abnormal ECG When compared with ECG of 07-AUG-2020 09:40, Premature atrial complexes are now Present Vent. rate has increased BY 3 BPM Confirmed by LEONEL GUTIERREZ, GINA ([id number]), proposal editor RADHA CAMACHO ([id number]) on 05/05/2021 7:47:17 AM Referred By: DR BENAVIDEZ Confirmed By:GINA CASTANEDA MD
[2021-04-25 06:32] LABS: Anion Gap 6 (5-15); BUN 27 mg/dL (7-18); Calcium,Total 7.4 mg/dL (8.5-10.1); Chloride 110 mmol/L (98-107); Creatinine, Serum 1.59 mg/dL (0.70-1.30); EST Glomerular Filtration Rate 45 mL/min (>60); Est Glom Filt Rate - Afr Amer 54 mL/min (>60); Estimated Creatinine Clearance 41.44 ml/min; Glucose 106 mg/dL (74-106); Potassium 3.1 mmol/L (3.5-5.1); Sodium Level 141 mmol/L (136-145)
[2021-04-25] MEDS: hydrALAZINE 25 MG Tablet PO ×3 (06:47→21:15)
[2021-04-25] MEDS: Heparin Injection (Vial) 5,000 UNIT/ML VIAL 5000 UNIT SC ×3 (06:49→21:16)
[2021-04-25 07:10] LABS: Bedside Glucose 106 mg/dL (70-110)
[2021-04-25] MEDS: Famotidine 20 MG Tablet PO ×2 (09:04→21:15)
[2021-04-25] MEDS: Glimepiride 1 MG Tablet 0.5 MG PO (09:04)
[2021-04-25] MEDS: Aspirin E.C. 81 MG Tablet PO (09:04)
[2021-04-25] MEDS: amLODIPine 10 MG Tablet PO (09:04)
[2021-04-25] MEDS: Ceftriaxone 1 GM/50 ML BAG IV (10:08)
[2021-04-25] MEDS: 0.9% Normal Saline 1,000 ML 75 ML IV ×2 (10:51→23:11)
[2021-04-25] MEDS: Insulin Lispro 100 UNIT/ML INSULN.PEN SC (11:27)
[2021-04-25 11:35] LABS: Bedside Glucose 206 mg/dL (70-110)
--- NOTE | 2021-04-25 13:46 | PCM.PN.HOSP ---
Documented by User: Brandy Garza ELECTRIC SIGN ASSEMBLER, ELECTRIC SIGN ASSEMBLER-C 04/25/21 13:53 Subjective Subjective Patient seen and examined. Feels overall improved. Denies further diarrhea. Reports cough, nonproductive. Denies shortness of breath. Patient ambulated and required 3 L supplemental oxygen with ambulation. Objective Data Objective Data Vital Signs: Vital Signs Temp Pulse Resp BP Pulse Ox 98.1 F 76 18 138/58 H 92 04/25/21 08:44 04/25/21 08:44 04/25/21 08:44 04/25/21 08:44 04/25/21 12:03 Oxygen Flow Rate (L/min) 3 Oxygen Delivery Method Nasal Cannula Weight: 174 lb 4.8 oz Body Mass Index (BMI) 23.0 Intake & Output: Intake and Output for Last 24 Hours 04/23/21 04/24/21 04/25/21 23:59 23:59 23:59 Intake Total 933.75 / 933.75 2892.5 / 2892.5 1725.00 / 1725.00 Output Total 450 / 450 1000 / 1000 Balance 483.75 / 483.75 2892.5 / 2492.5 725.00 / 725.00 Lab / Micro Data Result Diagrams: 04/25/21 05:55 04/25/21 05:55 Labs: Laboratory Results - last 24 hr 04/24/21 04/24/21 04/24/21 16:27 20:19 23:00 WBC RBC Hgb Hct MCV MCH MCHC RDW Std Deviation RDW Coeff of Facundo Plt Count MPV Immature Gran % (Auto) Neut % (Auto) Lymph % (Auto) [place] % (Auto) Eos % (Auto) Baso % (Auto) Absolute Neuts (auto) Absolute Lymphs (auto) Nucleated RBC % Sodium 139 Potassium 2.9 L Chloride 108 H Carbon Dioxide 25.0 Anion Gap 6 BUN 30 H Creatinine 1.78 H Estim Creat Clear Calc 37.01 Est GFR (MDRD) Af Amer 48 L Est GFR (MDRD) Non-Af 39 L BUN/Creatinine Ratio 16.9 Glucose 142 H Calcium 7.6 L Magnesium 2.0 POC Glucose 84 152 H 04/25/21 04/25/21 04/25/21 05:55 05:55 06:53 WBC 9.2 RBC 3.61 L Hgb 10.8 L Hct 33.2 L MCV 92.0 MCH 29.9 MCHC 32.5 RDW Std Deviation 44.3 H RDW Coeff of Facundo 13.1 Plt Count 306 MPV 9.8 Immature Gran % (Auto) 0.900 Neut % (Auto) 71.1 H Lymph % (Auto) 11.8 L [place] % (Auto) 15.0 H Eos % (Auto) 0.5 Baso % (Auto) 0.7 Absolute Neuts (auto) 6.5 Absolute Lymphs (auto) 1.08 Nucleated RBC % 0 Sodium 141 Potassium 3.1 L Chloride 110 H Carbon Dioxide 25.0 Anion Gap 6 BUN 27 H Creatinine 1.59 H Estim Creat Clear Calc 41.44 Est GFR (MDRD) Af Amer 54 L Est GFR (MDRD) Non-Af 45 L BUN/Creatinine Ratio 17.0 Glucose 106 Calcium 7.4 L Magnesium POC Glucose 106 04/25/21 11:24 WBC RBC Hgb Hct MCV MCH MCHC RDW Std Deviation RDW Coeff of Facundo Plt Count MPV Immature Gran % (Auto) Neut % (Auto) Lymph % (Auto) [place] % (Auto) Eos % (Auto) Baso % (Auto) Absolute Neuts (auto) Absolute Lymphs (auto) Nucleated RBC % Sodium Potassium Chloride Carbon Dioxide Anion Gap BUN Creatinine Estim Creat Clear Calc Est GFR (MDRD) Af Amer Est GFR (MDRD) Non-Af BUN/Creatinine Ratio Glucose Calcium Magnesium POC Glucose 206 H Micro: Microbiology 04/23/21 17:00 Urine, Clean Catch Urine Culture - Final Mixed Gram Positive Organisms 04/24/21 10:40 Stool C. difficile DNA Amplification - Final Physical Exam Const alert, oriented x3 and no apparent distress Orientation / Consciousness: awake, oriented to person, oriented to place and oriented to time HEENT normocephalic and moist oral mucous membranes Eyes PERRL, EOMs intact bilaterally and conjunctivae normal Neck no lymphadenopathy Resp clear to auscultation bilaterally Auscultation: diminished lung sounds Cardio regular rate, regular rhythm and no murmurs Peripheral Pulses: pulses 2+ throughout GI normal to inspection, nondistended, normoactive bowel sounds, non-tender and non-distended Extremity normal to inspection Skin no rashes or lesions noted Lesions: no lesions Rashes: no rashes Trauma: no lacerations or abrasions Neuro CN's II-XII intact bilaterally, no focal motor deficits, no sensory deficits noted and deep tendon reflexes 2+ bilaterally Psych mental status grossly normal and affect normal Assessment & Plan Assessment/Plan (1) Community acquired pneumonia: (2) Sepsis: PLAN: 1. Sepsis secondary to right lower lobe community with associated acute hypoxic respiratory insufficiency-acquired pneumonia-IV azithromycin and IV Rocephin. Currently on 3 L nasal cannula. Wean oxygen as tolerated. Albuterol/DuoNeb aerosols. Blood culture showed no growth so far. Home oxygen testing completed, oxygen stable at rest on room air however requiring 3 L oxygen with movement. We will keep overnight and retest in a.m. If patient still requires oxygen with ambulation, will plan for discharge home with supplemental oxygen. 2. Acute kidney injury on chronic kidney disease stage IIIb- IV fluids, trend BMP. 3. Hypokalemia-replaced per protocol, trend BMP. 4. CAD with history of stents-continue aspirin, statin. 5. Type 2 diabetes [id number] with sliding scale insulin. On glimepiride as well. 6. Hypertension-stable, continue Norvasc, hydralazine. Lisinopril/chlorthalidone on hold. 7. BPH-on Flomax. DVT prophylaxis-heparin subcu This patient was seen by ADDISON Gonsales under the supervision of Dr. Juárez. Documented by User: Dr. Jaziel Juárez MD 04/25/21 14:23 Objective Data Lab / Micro Data Result Diagrams: 04/25/21 05:55 04/25/21 05:55 Charges/Coding Addendum Addendum: Dr. Juárez: I personally reviewed the chart and examined the patient, and agree with the above findings. 81-year-old male presents from home with right lower lobe community-acquired pneumonia. Continue with Rocephin and azithromycin, he is requiring oxygen at rest and 3 L with ambulation. He is hesitant to go home with oxygen so he would like to stay 1 more day and retest in the morning however at that time if he continues to require oxygen, which she likely will, he will be discharged at that time. Visit Charges Inpatient E&M: 38737 Subs Hosp L2
[2021-04-25 17:06] LABS: Bedside Glucose 91 mg/dL (70-110)
[2021-04-25] MEDS: Atorvastatin Calcium 80 MG Tablet PO (21:15)
[2021-04-25] MEDS: Lisinopril 40 MG Tablet PO (21:16)
[2021-04-25 21:26] LABS: Bedside Glucose 114 mg/dL (70-110)
[2021-04-26] VITALS (9 sets, daily range): BP systolic 141–159; BP diastolic 57–89; PULSE 65–73; RESP 17–18; TEMP 36.5–37.1; O2SAT 89–95
[2021-04-26] MEDS: Acetaminophen 325 MG Tablet 650 MG PO (03:35)
[2021-04-26 05:51] LABS: Absolute Lymphocyte Count 1.22 X10^3/uL (0.83-4.51); Absolute Neutrophil Count 5.3 X10^3/uL (2.0-7.7); Basophil# 0.06 X10^3/uL; Basophil% 0.8 % (0-1); Eosinophil# 0.09 X10^3/uL; Eosinophils% 1.1 % (0-5); Hemoglobin 10.4 g/dL (13.0-16.5); Lymphocyte # 1.22 X10^3/ul (0.83-4.51); Lymphocyte % 15.6 % (19-41); Mean Corp Hgb Conc 32.5 g/dL (32-36); Mean Corpuscular Hgb 29.7 pg (27.0-32.0); Mean Corpuscular Volume 91.4 fL (80-94); Mean Platelet Vol. 10.2 fl (6.2-12.0); Monocyte# 1.08 X10^3/uL; Monocyte% 13.8 % (0-10); NRBC Flagged by Analyzer 0 % (0-5); Neutrophil # 5.32 X10^3/uL (2.7-7.7); Neutrophil % 67.8 % (47-70); Platelet Count 335 K/mm3 (150-450); RBC Distribution Width CV 13.2 % (11.6-14.6); RBC Distribution Width SD 44.5 fl (35.1-43.9); White Blood Count 7.8 K/mm3 (4.4-11.0)
[2021-04-26 06:24] LABS: Anion Gap 8 (5-15); BUN 22 mg/dL (7-18); BUN/Creat Ratio 18.2 RATIO (10-20); Calcium,Total 8.2 mg/dL (8.5-10.1); Chloride 113 mmol/L (98-107); Creatinine, Serum 1.21 mg/dL (0.70-1.30); EST Glomerular Filtration Rate 61 mL/min (>60); Est Glom Filt Rate - Afr Amer 74 mL/min (>60); Estimated Creatinine Clearance 54.45 ml/min; Glucose 103 mg/dL (74-106); Potassium 3.7 mmol/L (3.5-5.1); Sodium Level 144 mmol/L (136-145)
[2021-04-26] MEDS: Heparin Injection (Vial) 5,000 UNIT/ML VIAL 5000 UNIT SC (06:45)
[2021-04-26] MEDS: hydrALAZINE 25 MG Tablet PO (06:46)
[2021-04-26 06:55] LABS: Bedside Glucose 101 mg/dL (70-110)
[2021-04-26] MEDS: Aspirin E.C. 81 MG Tablet PO (08:24)
[2021-04-26] MEDS: Glimepiride 1 MG Tablet 0.5 MG PO (08:25)
[2021-04-26] MEDS: Potassium Chloride Oral Tablet 20 MEQ 40 MEQ PO (08:25)
[2021-04-26] MEDS: Ceftriaxone 1 GM/50 ML BAG IV (10:20)
[2021-04-26] MEDS: amLODIPine 10 MG Tablet PO (10:24)
[2021-04-26] MEDS: Famotidine 20 MG Tablet PO (10:24)
--- NOTE | 2021-04-26 10:55 | PCM.DC ---
Discharge Instructions Diet Discharge Diet: No restrictions Activity Discharge Activity: Return to Normal Activity Dressing / Incision Call your doctor if you observe: Shortness of breath, Dizziness and Chest pain Follow Up Care Test Results: Test results from this visit will be discussed in further detail at your follow-up appointment, if applicable. Discharge Plan Admission Admit Date/Time: 04/23/21 15:25 Primary Reason for Your Visit: Pneumonia Attending Provider: Jaziel Juárez Primary Care Provider: Jose Clarke Discharge Orders/Prescriptions Prescriptions: New amoxicillin-pot clavulanate [Augmentin] 875-125 mg tablet 1 tab PO BID Qty: 14 RF: 0 Continued atorvastatin 20 MG tablet 80 mg PO QHS RF: 0 chlorthalidone 25 MG tablet 40 mg PO DAILY RF: 0 amlodipine 5 MG tablet 10 mg PO DAILY RF: 0 hydralazine 100 MG tablet 25 mg PO TID RF: 0 lisinopril 40 MG tablet 40 mg PO QHS RF: 0 aspirin 81 mg Tablet 81 mg PO DAILY RF: 0 glimepiride 1 mg tablet 0.5 mg PO DAILY RF: 0 Referrals / Follow Up: Jose Clarke DO [Primary Care Provider] - In 1 Week Disposition Disposition (needs filled in before D/C Order can be placed): Home, Self Care
--- NOTE | 2021-04-26 13:35 | DS.PCM_ITS ---
Documented by User: Brandy Garza NP, TRAFFIC ANALYSIS TECHNICIAN-C 04/26/21 13:42 Providers Date of Admission: 04/23/21 Date of Discharge: 04/26/21 Primary Care Physician: Dr. Jose Clarke DO Reason For Visit: PNEUMONIA, SEPSIS Diagnosis Discharge Diagnosis (1) Community acquired pneumonia: Status: Acute Code(s): J18.9 - Pneumonia, unspecified organism (2) Sepsis: Status: Acute Code(s): A41.9 - Sepsis, unspecified organism Medications at Discharge Home Medications amlodipine 10 mg PO DAILY 12/16/16 atorvastatin 80 mg PO QHS 12/16/16 chlorthalidone 40 mg PO DAILY 12/16/16 hydralazine 25 mg PO TID 12/16/16 lisinopril 40 mg PO QHS 06/13/20 aspirin 81 mg PO DAILY 04/23/21 glimepiride 0.5 mg PO DAILY 04/23/21 amoxicillin-pot clavulanate [Augmentin] 1 tab PO BID #14 tab 04/26/21 Hospital Course Operations None Procedures None Summary of Care Provided Minutes Spent on Discharge: 35 Hospital Course: Patient is an 81-year-old male admitted 04/23/2021 due to shortness of breath, fever. 1. Sepsis secondary to right lower lobe community acquired pneumonia with associated acute hypoxic respiratory insufficiency-IV azithromycin and IV Rocephin during admission. Blood culture showed no growth. Patient was weaned off of oxygen. Home oxygen testing completed prior to discharge and patient did not require further oxygen at rest or with ambulation. Discharge on oral Augmentin to complete course. Patient reports several month history of shortness of breath with exertion. Following resolution of pneumonia, recommend outpatient echo, referral for PFTs, etc. for further evaluation. Folllow up with PCP in one week. 2. Acute kidney injury on chronic kidney disease stage IIIb- JC resolved. 3. Hypokalemia-replaced per protocol, resolved. 4. CAD with history of stents-continue aspirin, statin. 5. Type 2 diabetes mellitus-Continue glimepiride. 6. Hypertension-stable, continue Norvasc, hydralazine. Resume Lisinopril/chlorthalidone at discharge. Recommend repeat BMP in 1 week by PCP. Consider DC chlorthalidone if creat increased on repeat labs. 7. BPH-on Flomax. Physical Exam Const alert, oriented x3 and no apparent distress Orientation / Consciousness: awake, oriented to person, oriented to place and oriented to time HEENT normocephalic and moist oral mucous membranes Eyes PERRL, EOMs intact bilaterally and conjunctivae normal Neck no lymphadenopathy Resp clear to auscultation bilaterally Auscultation: diminished lung sounds Cardio regular rate, regular rhythm and no murmurs Peripheral Pulses: pulses 2+ throughout GI normal to inspection, nondistended, normoactive bowel sounds, non-tender and non-distended Extremity normal to inspection Skin no rashes or lesions noted Lesions: no lesions Rashes: no rashes Trauma: no lacerations or abrasions Neuro CN's II-XII intact bilaterally, no focal motor deficits, no sensory deficits noted and deep tendon reflexes 2+ bilaterally Psych mental status grossly normal and affect normal Patient seen and examined prior to discharge. Physical assessment as noted above. Patient is stable for discharge with follow up recommendations as noted above. This patient was seen by ADDISON Gonsales under the supervision of Dr. Juárez. Weight / BMI Weight Weight: 174 lb 4.8 oz Body Mass Index (BMI) 23.0 ABG / Lab / Microbiology Data Result Diagrams: 04/26/21 05:15 04/26/21 05:15 Laboratory: Laboratory Results - last 24 hr 04/25/21 04/25/21 04/26/21 16:34 21:08 05:15 WBC 7.8 RBC 3.50 L Hgb 10.4 L Hct 32.0 L MCV 91.4 MCH 29.7 MCHC 32.5 RDW Std Deviation 44.5 H RDW Coeff of Facundo 13.2 Plt Count 335 MPV 10.2 Immature Gran % (Auto) 0.900 Neut % (Auto) 67.8 Lymph % (Auto) 15.6 L Swift % (Auto) 13.8 H Eos % (Auto) 1.1 Baso % (Auto) 0.8 Absolute Neuts (auto) 5.3 Absolute Lymphs (auto) 1.22 Nucleated RBC % 0 Sodium Potassium Chloride Carbon Dioxide Anion Gap BUN Creatinine Estim Creat Clear Calc Est GFR (MDRD) Af Amer Est GFR (MDRD) Non-Af BUN/Creatinine Ratio Glucose Calcium POC Glucose 91 114 H 04/26/21 04/26/21 05:15 06:43 WBC RBC Hgb Hct MCV MCH MCHC RDW Std Deviation RDW Coeff of Facundo Plt Count MPV Immature Gran % (Auto) Neut % (Auto) Lymph % (Auto) Swift % (Auto) Eos % (Auto) Baso % (Auto) Absolute Neuts (auto) Absolute Lymphs (auto) Nucleated RBC % Sodium 144 Potassium 3.7 Chloride 113 H Carbon Dioxide 23.0 Anion Gap 8 BUN 22 H Creatinine 1.21 Estim Creat Clear Calc 54.45 Est GFR (MDRD) Af Amer 74 Est GFR (MDRD) Non-Af 61 BUN/Creatinine Ratio 18.2 Glucose 103 Calcium 8.2 L POC Glucose 101 Microbiology: Microbiology 04/23/21 16:13 Blood Culture - Preliminary Blood Culture (Wb) - Anticubital Right No growth in 48 hours. 04/23/21 16:03 Blood Culture - Preliminary Blood Culture (Wb) - Anticubital Left No growth in 48 hours. 04/23/21 17:00 Urine Culture - Final Urine, Clean Catch Mixed Gram Positive Organisms Microbiology 04/23/21 16:13 Blood Culture (Wb) - Anticubital Right Blood Culture - Preliminary No growth in 48 hours. 04/23/21 16:03 Blood Culture (Wb) - Anticubital Left Blood Culture - Preliminary No growth in 48 hours. 04/23/21 17:00 Urine, Clean Catch Urine Culture - Final Mixed Gram Positive Organisms 04/24/21 10:40 Stool C. difficile DNA Amplification - Final D/C Instructions Discharge Diet: No restrictions Call your doctor if you observe: Shortness of breath, Dizziness and Chest pain Meaningful Use Info Meaningful Use Diagnoses (Choose all that apply): None applicable Discharge Plan Admission Admit Date/Time: 04/23/21 15:25 Primary Reason for Your Visit: Pneumonia Attending Provider: Jaziel Juárez Primary Care Provider: Jose Clarke Instructions Additional Instructions / Restrictions: Patient Problems: Altered Health Status related to Hospitalization Patient Goals: *Optimal Level of Health *Keep Appointments *Medication Compliance *Remain Safe Discharge Orders/Prescriptions Prescriptions: New amoxicillin-pot clavulanate [Augmentin] 875-125 mg tablet 1 tab PO BID Qty: 14 RF: 0 Continued atorvastatin 20 MG tablet 80 mg PO QHS RF: 0 chlorthalidone 25 MG tablet 40 mg PO DAILY RF: 0 amlodipine 5 MG tablet 10 mg PO DAILY RF: 0 hydralazine 100 MG tablet 25 mg PO TID RF: 0 lisinopril 40 MG tablet 40 mg PO QHS RF: 0 aspirin 81 mg Tablet 81 mg PO DAILY RF: 0 glimepiride 1 mg tablet 0.5 mg PO DAILY RF: 0 Referrals / Follow Up: Jose Clarke DO [Primary Care Provider] - In 1 Week (Please call to schedule follow up appointment) Disposition Disposition (needs filled in before D/C Order can be placed): Home, Self Care Documented by User: Dr. Jaziel Juárez MD 04/26/21 18:01 Providers Date of Admission: 04/23/21 Reason For Visit: PNEUMONIA, SEPSIS Medications at Discharge Home Medications amlodipine 10 mg PO DAILY 12/16/16 atorvastatin 80 mg PO QHS 12/16/16 chlorthalidone 40 mg PO DAILY 12/16/16 hydralazine 25 mg PO TID 12/16/16 lisinopril 40 mg PO QHS 06/13/20 aspirin 81 mg PO DAILY 04/23/21 glimepiride 0.5 mg PO DAILY 04/23/21 amoxicillin-pot clavulanate [Augmentin] 1 tab PO BID #14 tab 04/26/21 ABG / Lab / Microbiology Data Result Diagrams: 04/26/21 05:15 04/26/21 05:15 Discharge Plan Admission Admit Date/Time: 04/23/21 15:25 Primary Reason for Your Visit: Pneumonia Attending Provider: Jaziel Juárez Primary Care Provider: Jose Clarke Instructions Additional Instructions / Restrictions: Patient Problems: Altered Health Status related to Hospitalization Patient Goals: *Optimal Level of Health *Keep Appointments *Medication Compliance *Remain Safe Discharge Orders/Prescriptions Prescriptions: New amoxicillin-pot clavulanate [Augmentin] 875-125 mg tablet 1 tab PO BID Qty: 14 RF: 0 Continued atorvastatin 20 MG tablet 80 mg PO QHS RF: 0 chlorthalidone 25 MG tablet 40 mg PO DAILY RF: 0 amlodipine 5 MG tablet 10 mg PO DAILY RF: 0 hydralazine 100 MG tablet 25 mg PO TID RF: 0 lisinopril 40 MG tablet 40 mg PO QHS RF: 0 aspirin 81 mg Tablet 81 mg PO DAILY RF: 0 glimepiride 1 mg tablet 0.5 mg PO DAILY RF: 0 Referrals / Follow Up: Jose Clarke, [Primary Care Provider] - In 1 Week (Please call to schedule follow up appointment) Disposition Disposition (needs filled in before D/C Order can be placed): Home, Self Care Charges/Coding Addendum Addendum: Dr. Juárez: I personally reviewed the chart and examined the patient, and agree with the above findings. 81-year-old male presents from home with right lower lobe community-acquired pneumonia. Continue with Rocephin and azithromycin, he is requiring oxygen at rest and 3 L with ambulation. He is hesitant to go home with oxygen so he would like to stay 1 more day and retest in the morning however at that time if he continues to require oxygen, which she likely will, he will be discharged at that time. 04/26/2021: Feels much better today, completely off of oxygen at rest though he did have to wear a few liters at night he had a repeat ambulatory pulse ox today which did not demonstrate any need with ambulation therefore he was discharged home. I did discuss with him the plan for discharge and he expressed understanding of the risk and benefits going home and would like to go home today. Complete a course of antibiotics as above. Visit Charges Inpatient E&M: [id number] Disch Hosp
== END 2021-04-26 12:55 | disposition home or self-care (01) | DRG 194 ==
PROVIDERS: Family Medicine; Hospitalist; Nurse Practitioner Family; Student in an Organized Health Care Education/Training Program; Admitting Provider Family Medicine; PCP Family Medicine; Visit Provider Family Medicine
DX: J18.9 Pneumonia, unspecified organism (principal); N17.9 Acute kidney failure, unspecified; E11.22 Type 2 diabetes mellitus with diabetic chronic kidney disease; N18.32 Chronic kidney disease, stage 3b; I12.9 Hypertensive chronic kidney disease with stage 1 through stage 4 chronic kidney disease, or unspecified chronic kidney disease; I25.2 Old myocardial infarction; I25.10 Atherosclerotic heart disease of native coronary artery without angina pectoris; E87.6 Hypokalemia; N40.0 Benign prostatic hyperplasia without lower urinary tract symptoms; R06.89 Other abnormalities of breathing; R09.02 Hypoxemia; Z95.0 Presence of cardiac pacemaker; Z95.5 Presence of coronary angioplasty implant and graft; Z79.82 Long term (current) use of aspirin; Z79.84 Long term (current) use of oral hypoglycemic drugs; Z79.899 Other long term (current) drug therapy
CPT/HCPCS: 36415; 80048; 80053; 82962; 83690; 83735; 85025; 87040; 87086; 87088; 87493; 93005; 97162; 97166; 97530; 97535; 99251; J7030; J7040; A4216; G0463; J2405

== ENCOUNTER → 2022-03-12 | Outpatient (CLI) | payer MEDICARE, SELFPAY ==
--- NOTE | 2022-03-12 10:06 | ECHOD_ITS ---
Reason For Study: DILATED CARDIOMYOPATHY Procedure This was a 2D Doppler, Color Flow transthoracic echocardiogram. Exam performed in department. Left Ventricle The estimated ejection fraction is 55 %. No evidence for diastolic dysfunction. No regional wall motion abnormalities noted. Right Ventricle Normal RV size. ICD or pacer leads identified within the right ventricle. Normal systolic function. Atria Normal left atrium. Normal right atrium. ICD or pacer leads identified within the right atrium. No doppler evidence for ASD. Mitral Valve There is no mitral valve stenosis. No mitral valve insufficiency. Tricuspid Valve There is no tricuspid stenosis. Trivial tricuspid valve insufficiency. Pulmonary artery systolic pressure is 35 mmHg. Aortic Valve Trisinus/trileaflet aortic valve. There is no aortic stenosis. Trivial aortic valve insufficiency. Pulmonic Valve There is no pulmonic valvular stenosis. No pulmonic valve insufficiency. Great Vessels Normal aortic root. Pericardium/Pleural No pericardial effusion. MMode/2D Measurements & Calculations LVIDd: 3.5 cm IVSd: 1.4 cm Ao root diam: 3.3 cm LVIDs: 2.0 cm LVPWd: 1.1 cm RVDd: 4.2 cm FS: 42.4 % LAV(MOD-sp2): 114.5 ml LVAd ap4: 30.5 cm2 SV(MOD-sp4): 58.8 ml LVLd ap4: 7.5 cm EDV(MOD-sp4): 98.8 ml EDV(sp4-el): 105.9 ml LVAs ap4: 18.4 cm2 LVLs ap4: 7.0 cm ESV(MOD-sp4): 39.9 ml ESV(sp4-el): 41.3 ml EF(MOD-sp4): 59.6 % EF(sp4-el): 61.0 % SV(sp4-el): 64.7 ml LA A4 area: 26.3 cm2 LA dimension(2D): 3.9 cm RA A4 area: 22.9 cm2 Doppler Measurements & Calculations MV E max aditya: 82.0 cm/sec Lat Peak E' Adtiya: 6.8 cm/sec Med Peak E' Aditya: 5.7 cm/sec MV A max aditya: 85.2 cm/sec E/E' lat: 12.0 E/E' med: 14.3 MV E/A: 0.96 Ao V2 max: 139.8 cm/sec AI max aditya: 428.2 cm/sec LV V1 max: 120.3 cm/sec Ao max P.8 mmHg AI max P.4 mmHg LV V1 max P.8 mmHg AI dec slope: 272.5 cm/sec2 AI P1/2t: 460.2 msec PA V2 max: 93.4 cm/sec TR max aditya: 288.8 cm/sec TR max P.4 mmHg ECHO/Echo Complete Interpretation Summary The estimated ejection fraction is 55 %. No evidence for diastolic dysfunction. Trivial aortic valve insufficiency. Ordering Physician: JEREMIAS CASILLAS Performed By: Edie Hare RCS
== END | disposition home or self-care (01) ==
PROVIDERS: PCP Family Medicine
DX: I42.0 Dilated cardiomyopathy (principal)
CPT/HCPCS: 93306

== ENCOUNTER 2022-08-28 15:54 | Inpatient (IN) | payer MEDICARE, SELFPAY ==
[2022-08-28] VITALS (7 sets, daily range): BP systolic 142–154; BP diastolic 62–70; PULSE 75–88; RESP 15–18; TEMP 36.7–37.1; O2SAT 93–98; BMI 22.3; BMI 24.5
--- NOTE | 2022-08-28 16:49 | RAD_ITS ---
STUDY: X-RAY - PELVIS REASON FOR EXAM: Male, 82 years old. Fall. TECHNIQUE: One view of the pelvis was obtained. COMPARISON: Left femur, August 28, 2022. FINDINGS: There is a non-specific bowel gas pattern. Normal visualized soft tissue structures. Vascular calcifications. Degenerative changes of visualized lumbar spine. Normal bilateral iliac wings, sacroiliac joints and visualized sacrum. Normal visualized bilateral superior and inferior pubic rami. Normal pubic symphysis. Normal ischial tuberosities. Normal visualized right femoral head. Normal right acetabulum. There is mild articular joint space narrowing of the right hip. Normal visualized left femoral head. There is a fracture of the left femoral neck with minimal displacement. Normal left acetabulum. There is mild articular joint space narrowing of the left hip. RAD/Pelvis 1 or 2 Views IMPRESSION: 1. Mildly displaced fracture left femoral neck. 2. Degenerative changes of bilateral hips and lumbar spine. Electronically Signed: Gonzalo Paz DO at 17:43 EDT ,
--- NOTE | 2022-08-28 16:50 | EDS_ITS ---
HPI HPI - Fall History of Present Illness Chief Complaint: Fall Detail of Chief Complaint: Complaint left hip pain Informant: patient Occured/Mechanism Occurred: Today Mechanism/Context: Yes same level fall and Yes trip Usually ambulates: Without assistance Pain/Injury Pain Location: lower extremity Quality of Pain: Dull and Aching Current Severity: Moderate Maximum Severity: Moderate Associated Symptoms Associated Symptoms: Positive for Inability to ambulate; Negative for Parasthesias, Weakness, Loss of function, Loss of consciousness or Amnesia Narrative Narrative: 82-year-old male history of hypertension, SD and pacemaker. Was at a gym watching his grandson play basketball when he was walking out tripped over something on the floor and injured his left hip. He is unable to ambulate. Denies other injuries. Did not hit his head. No LOC. Prior similar symptoms: No Recent Illness/Hospitalization: No PFSH PFSH Medical History Hypertension Kidney disease Myocardial infarct Pacemaker Home Medications amlodipine 5 mg tablet 10 mg PO DAILY Blood Pressure 12/16/16 [History Last Taken 04/22/21 21:00] atorvastatin 20 mg tablet 80 mg PO QHS Cholesterol 12/16/16 [History Last Taken Unknown] chlorthalidone 25 mg tablet 40 mg PO DAILY 12/16/16 [History Last Taken Unknown] hydralazine 100 mg tablet 25 mg PO TID BP 12/16/16 [History Last Taken 04/22/21 21:00] lisinopril 40 mg tablet 40 mg PO QHS BP 06/13/20 [History Last Taken 04/22/21 21:00] aspirin 81 mg tablet 81 mg PO DAILY Heart 04/23/21 [History Last Taken 04/22/21 08:00] glimepiride 1 mg tablet 0.5 mg PO DAILY Diabetes 04/23/21 [History Last Taken Unknown] amoxicillin 875 mg-potassium clavulanate 125 mg tablet (Augmentin) 1 tab PO BID #14 tabs 04/26/21 [Rx Last Taken Unknown] Allergy/AdvReac Type Severity Reaction Status Date / Time No Known Allergies Allergy Verified 08/28/22 15:54 Surgical History H/O cardiac catheterization History of coronary artery stent placement Status post placement of cardiac pacemaker Social History Smoking Status: Never smoker ROS ROS ED ROS Narrative Denies recent illness. Review of Systems ROS Unobtainable: Denies due to encephalopathy Constitutional Constitutional ED: Denies chills or fever(s) Eyes Eyes: Denies blurry vision ENT ENT ED: Denies ear pain Cardiovascular Cardiovascular: Denies chest pain Respiratory/Chest Respiratory/Chest: Denies cough or dyspnea Gastrointestinal Gastrointestinal: Denies abdominal pain Genitourinary Genitourinary ED: Denies dysuria or hematuria Musculoskeletal Musculoskeletal: Denies arthralgias Integumentary Denies abscess Neurologic Neurologic: Denies headache(s) Psychiatric Psychiatric: Denies anxiety Endocrine Endocrinology: Denies polydipsia Hematologic/Lymphatic Hematologic/Lymphatic: Denies easy bleeding Allergic/Immunologic Allergic/Immunologic ED: Denies mouth swelling or tongue swelling EXAM Physical Exam Narrative Exam Narrative: 82-year-old male no acute distress. Vital signs stable afebrile. Exam normal except PLP left hip and with passive range of motion. No shortening or rotation. HEENT exam normal. No trauma. Neck nontender. Back nontender. Lungs are clear. Heart regular rhythm. Chest wall and abdomen nontender. Const Vital Signs: 08/28/22 15:54 08/28/22 16:38 Temperature 98.0 F Temperature Source Temporal Pulse Rate 80 Respiratory Rate 15 Respiratory Effort Normal Non-Labored Respiratory Depth Normal Respiratory Pattern Normal Blood Pressure 144/68 H Blood Pressure Mean 93 Pulse Ox 98 Oxygen Delivery Method Room Air Room Air Positive well nourished and well developed; Negative for obese, cachectic, contractures or unkempt General Appearance ED: well developed and NAD; Negative for unkempt, cachectic or contractures Nutritional Appearance: Negative for cachectic or obese HEENT Reports normocephalic atraumatic; Negative for trauma, contusion, hematoma or tenderness Eyes PERRL and EOMs intact bilaterally General Eye ED: Negative for pale conjunctiva or scleral icterus Neck full ROM, no lymphadenopathy and supple General: Negative for tenderness Chest Wall inspection of chest normal and palpation of chest normal Chest: other Resp normal respiratory effort, no retractions and clear to auscultation bilaterally Effort and Inspection: Negative for pain with movement Auscultation: Negative for rales, rhonchi or wheezes Cardio regular rate, regular rhythm, S1 normal heart sound, S2 normal heart sound and no murmurs GI non-tender, non-distended and no masses Inspection: Negative for abdominal distention Auscultation: Negative for normoactive bowel sounds Palpation: soft; Negative for guarding Back/Spine no CVA tenderness General Back: Negative for CVA tenderness Cervical Spine: Negative for cervical spine tenderness Thoracic Spine / Upper Back: Negative for ROM limited Lumbar Spine / Lower Back: Negative for lumbar spinal tenderness Neuro oriented x3, CN's II-XII intact bilaterally, moves all extremities, no focal motor deficits and no sensory deficits noted Sensorium / Orientation: alert, oriented to person, oriented to place and oriented to time; Negative for orientation impaired, confused, lethargic or stuporous Motor Exam: strength 5/5 throughout Psych mental status grossly normal and thought process normal Appearance: Negative for unkempt Attitude: No agitated Mood & Affect: Negative for depressed, anxious or tearful Skin Lesions: no lesions Rashes: no rashes Trauma: Negative for abrasion MDM MDM MDM Narrative Medical decision making narrative: 82-year-old male tripped and fell in the gym complaining of left hip pain. X- rays of pelvis, left hip and femur being obtained. X-ray reveals a left femoral neck fracture. Patient will be admitted. Have already spoken to the orthopedic physician on-call and the hospitalist will be down to admit him. Preop labs and EKG are being obtained. Patient be treated with IV morphine. Radiography Diagnostic Testing: Clinical Impression(s) from Imaging Studies Pelvis X-Ray 08/28/22 16:49 IMPRESSION: 1. Mildly displaced fracture left femoral neck. 2. Degenerative changes of bilateral hips and lumbar spine. Electronically Signed: Gonzalo Paz DO at 17:43 EDT Reading [facility] and [facility] [place] Tel [phone], Service support , Femur X-Ray 08/28/22 17:00 IMPRESSION: Mildly displaced fracture of the left femoral neck. Electronically Signed: Gonzalo Paz DO at 17:42 EDT Reading Location ID and State: [facility] / [place] Tel [phone], Service support , Discharge Plan Dx/Rx/DC Orders Clinical Impression: Fall, Diabetes mellitus, type 2, HTN (hypertension), Coronary artery disease, Status post placement of cardiac pacemaker, Closed fracture of left hip Disposition Disposition: Acute Care Hospital [facility]
--- NOTE | 2022-08-28 17:00 | RAD_ITS ---
STUDY: X-RAY - LEFT FEMUR REASON FOR STUDY: Male, 82 years old. Left hip pain after fall. TECHNIQUE: AP and lateral view(s) of the femur. COMPARISON: Pelvis, August 28, 2022. FINDINGS: There is a minimally displaced fracture of the left femoral neck. The remainder of the femoral shaft is intact. The femoral head articulates normally with the acetabulum. Mild degenerative changes of the hip and knee. Vascular calcifications are seen in the soft tissues. RAD/Femur Min 2 Views IMPRESSION: Mildly displaced fracture of the left femoral neck. Electronically Signed: Gonzalo Paz DO at 17:42 EDT ,
--- NOTE | 2022-08-28 18:41 | EKG12_ITS ---
Test Reason : DYSRYTHMIA Blood Pressure : / mmHG Vent. Rate : 081 BPM Atrial Rate : 081 BPM P-R Int : 154 ms QRS Dur : 086 ms QT Int : 396 ms P-R-T Axes : 064 019 068 degrees QTc Int : 460 ms Atrial-sensed ventricular-paced rhythm Abnormal ECG Confirmed by LEONEL GUTIERREZ, GINA ([id number]), editorial cartoonist RADHA CAMACHO ([id number]) on 08/30/2022 1:02:46 PM Referred By: TARAS Confirmed By:GINA CASTANEDA MD
--- NOTE | 2022-08-28 18:44 | HP.PCM.HOS_ITS ---
HPI - General General Date of Admission: 08/28/22 Date of Service: 08/28/22 Chief Complaint: Fell, LLE pain, debility HPI Narrative The patient is an 82 y/o M w/ PMHx: CKD stage IIIb, HTN, HLD, BPH, Hx bradycardia s/p pacemaker placement, Diabetes mellitus type II, CAD s/p PCI x 1, Dilated Cardiomyopathy who presents to the [facility] ED on 08/28/22 with history of being at an athletic event and unfortunately tripped on a cord cover in the gym, fell and landed on his left hip on the hard floor with immediate pain and debility following prompting ED evaluation. Patient reports following with Dr. Arriaza, cardiology with recent evaluation within the last 2 months reportedly doing well with no concerns and recent echocardiogram of that was not marked appearing. He currently notes the pain is controlled but with certain activities rates 4-5 out of 10 in severity. Work-up in the ED included T98, heart rate 80, BP 144/68, respiratory rate 15, 98% on room air, plain film of the left femur with mildly displaced fracture of the left femoral neck, plain film of the pelvis also noting a mildly displaced fracture of the left femoral neck with degenerative changes of bilateral hips and lumbar spine, CBC with WBC 19.3, hemoglobin 13.6, platelet 352 without differential, unremarkable coags, BMP with BUN/creat 36/1.61, glucose 180, type and screen pending per ED physician, EKG with atrial paced with no acute evidence of ischemia, chest x-ray with no acute cardiopulmonary findings but final read is pending upon evaluation. In the ED patient ministered Zofran 4 mg IV x1 as well as morphine 6 mg IV x1. ED physician discussed case with on-call orthopedic surgeon Dr. Forde who noted intention for possible OR transition 08/29/2022. [facility] Medical History (Updated 08/28/22 @ 18:[address] Suma Nicolas MD) Benign prostatic hyperplasia Coronary artery disease Diabetes mellitus, type 2 HLD (hyperlipidemia) Hypertension Pacemaker Stage 3b chronic kidney disease Home Medications amlodipine 5 mg tablet 10 mg PO DAILY Blood Pressure 12/16/16 [History Last Taken 04/22/21 21:00] chlorthalidone 25 mg tablet 25 mg PO QHS WATER PILL 12/16/16 [History Last Taken Unknown] hydralazine 100 mg tablet 25 mg PO TID BP 12/16/16 [History Last Taken 04/22/21 21:00] lisinopril 40 mg tablet 40 mg PO QHS BP 06/13/20 [History Last Taken 04/22/21 21:00] aspirin 81 mg tablet 81 mg PO DAILY Heart 04/23/21 [History Last Taken 04/22/21 08:00] glimepiride 1 mg tablet 0.5 mg PO BID Diabetes 04/23/21 [History Last Taken Unknown] atorvastatin 80 mg tablet 80 mg PO QHS HYPERLIPIDEMIA 08/28/22 [History Last Taken Unknown] Allergy/AdvReac Type Severity Reaction Status Date / Time No Known Allergies Allergy Verified 08/28/22 15:54 Family History (Updated 08/28/22 @ 20:[address] Suma Nicolas MD) Mother Colon cancer Diagnosed age 83, passed age 84. Father Heart disease Hypertension Myocardial infarction CAD (coronary artery disease) Surgical History (Updated 08/28/22 @ 20:[address] Suma Nicolas MD) H/O cardiac catheterization History of coronary artery stent placement S/P TURP Status post placement of cardiac pacemaker Social History (Updated 08/28/22 @ 20:[address] Suma Nicolas MD) household members: family Smoking Status: Never smoker alcohol intake: never substance use type: does not use ROS ROS Narrative Admission Review of Systems: CONSTITUTIONAL: No weight loss, fever, chills, + weakness or fatigue. HEENT: Eyes: No visual loss, blurred vision, double vision or yellow sclerae. Ears, Nose, Throat: No hearing loss, sneezing, congestion, runny nose or sore throat. SKIN: No rash or itching, lesions, wounds. CARDIOVASCULAR: No chest pain, chest pressure or chest discomfort, palpitations, edema, orthopnea, syncopal events. RESPIRATORY: No shortness of breath, cough or sputum, wheezing, hemoptysis. GASTROINTESTINAL: No anorexia, nausea, vomiting or diarrhea, abdominal pain, melena, BRBPR. GENITOURINARY: No dysuria, frequency, urgency or retention. NEUROLOGICAL: No headache, dizziness, syncope, paralysis, ataxia, numbness or tingling in the extremities, focal weakness, change in bowel or bladder control, seizure. MUSCULOSKELETAL: + muscle, back pain, joint pain or stiffness. HEMATOLOGIC: No anemia, bleeding or bruising. LYMPHATICS: No enlarged nodes. No history of splenectomy. PSYCHIATRIC: No history of depression or anxiety. ENDOCRINOLOGIC: No reports of sweating, cold or heat intolerance. No polyuria or polydipsia. ALLERGIES: No history of asthma, hives, eczema or rhinitis. Vital Signs Vital Signs Vital Signs: 08/28/22 15:54 08/28/22 16:38 Temperature 98.0 F Temperature Source Temporal Pulse Rate 80 Respiratory Rate 15 Respiratory Effort Normal Non-Labored Respiratory Depth Normal Respiratory Pattern Normal Blood Pressure 144/68 H Blood Pressure Mean 93 Pulse Ox 98 Oxygen Delivery Method Room Air Room Air Weight Weight: 169 lb Body Mass Index (BMI) 22.3 Physical Exam Narrative Physical Examination: General: Awake, alert, oriented x 3, notably hard of hearing, remains cooperative, seated upright in the ED bed despite hip fracture present, notes pain currently controlled, worse with movement attempts Skin: Normal color, normal turgor, no icterus, no cyanosis except for staged abrasions primarily to the shins and extremity. HEENT: AT/NC, EOMI, PERRLA, mildly dry MM, no carotid bruits or JVD noted. Lungs: Mild diminished, greater bases, appropriate effort, no rales, ronchi or wheezing. Heart: Regular rate and rhythm; no gallop, rub audible. Abdomen: Soft, NTTP, ND, hyperactive BS, no HSM. Extremities: No cyanosis, clubbing, or edema, peripheral pulses intact. Neurological: Patient awake, alert, oriented as noted, cognitive function intact; pupils equally reactive to light and accommodation, cranial nerves grossly normal, moving all 4 extremities except expected limitation given recent fall with left hip fracture, strength accordingly severely global decreased. Psychiatric: Affect appears fatigued otherwise normal, no acute evidence of depressive or anxiety feelings. Results Lab / Micro Data Result Diagrams: 08/28/22 18:47 08/28/22 18:47 Radiology Impression Pelvis X-Ray 08/28/22 16:49 IMPRESSION: 1. Mildly displaced fracture left femoral neck. 2. Degenerative changes of bilateral hips and lumbar spine. Electronically Signed: Gonzalo Paz DO at 17:43 EDT Reading Location ID and State: [address] [place] [address] Tel [phone], Service support , Femur X-Ray 08/28/22 17:00 IMPRESSION: Mildly displaced fracture of the left femoral neck. Electronically Signed: Gonzalo Paz, at 17:42 EDT Reading Location ID and State: [facility] / [place] Tel [phone], Service support , Assessment & Plan Assessment/Plan (1) Closed fracture of left hip: PLAN: Plan The patient is an 82 y/o M w/ PMHx: CKD stage IIIb, HTN, HLD, BPH, Hx clarisa ycardia s/p pacemaker placement, Diabetes mellitus type II, CAD s/p PCI x 1, Dilated Cardiomyopathy who presents to the [facility] ED on 08/28/22 with history of being at an athletic event and unfortunately tripped on a cord cover in the gym, fell and landed on his left hip on the hard floor with immediate pain and debility following prompting ED evaluation. #1. General debility, L hip pain s/p mechanical fall w/ left femoral neck fracture: Plain film noting left femoral neck. Orthopedic surgery consulted from ED. Will admit to [facility], maintain NPO after midnight, continue gentle IVFs, ochoa placement, monitor I/Os, frequent positioning, fall precautions, PRN Pain/anti-emetic regimen. PT/OT following operative intervention. CM consulted for discharge planning. Per NSQIP given patient's underlying medical history, age and activity status would certainly carry moderate risk however patient did have recent echocardiogram which is noted and not marked appearing as well as recent cardi ology evaluation 2 months prior with no acute concerning findings at that time with labs stable aside from leukocytosis which is suspected secondary to acute stress response as well as EKG with no acute concerning findings with planned interrogation and if no acute concerning demonstrated rhythm changes would plan to progress to the OR in the a.m. which was discussed with Dr. Forde. #2. CAD, Dilated Cardiomyopathy: Recent ECHO 03/12/22 with noted EF 55%, no evidence for diastolic dysfunction, trivial aortic valve insufficiency. s/p PCI x 1, will continue asa, statin, lisinopril, not on BB, s/p pacemaker placement with device interrogation prior to OR requested. #3. Leukocytosis, suspect likely related to acute presentation with stress response #1, no obvious evidence of recent infection, will continue to treat as noted, repeat CBC in a.m., procalcitonin requested. #4. Diabetes mellitus type II: Hold oral home regimen, ADA diet until n.p.o. status, accu checks w/ ISS. #5. History of bradycardia: From discussion with family patient significant bradycardia down into the 20s previously status post pacemaker placement, interrogation requested. #6. Chronic Kidney Disease Stage IIIb: Admission BUN/Cr 36/1.61, baseline renal function noted previously 1.5-1.8, repeat BMP in AM. #7. Hypertension: Continue home regimen including lisinopril, hydralazine, Norvasc, PRN hydralazine. #8. Hyperlipidemia: We will continue patient on statin therapy. #9. BPH: s/p TURP, previously on flomax, not on current list, clarifying and add if appropriate. #10. DVT prophylaxis: SCDs, hold chemoprophylaxis for planned OR as noted. #11. CODE status: Patient ZAKIYA is his son and daughter, the daughter who is present and living will is currently in place. Discussed CODE status at length including difference between FULL code, DNR-CCA and DNR-CC status. Following discussions about the differences in these status, requested Full Code status. Advanced Care Planning Face to Face Time: 16 minutes. Charges/Coding Visit Charges Inpatient E&M: 67067 Init Hosp L3 Procedures Hospitalists Procedures: 17908 Advncd Care Plan 30 Min
[2022-08-28 18:58] LABS: Hematocrit 41.2 % (40-54); Hemoglobin 13.6 g/dL (13.0-16.5); Mean Corpuscular Hgb 30.6 pg (27.0-32.0); Mean Corpuscular Volume 92.6 fL (80-94); Mean Platelet Vol. 9.7 fl (6.2-12.0); Platelet Count 352 K/mm3 (150-450); RBC Distribution Width CV 12.7 % (11.6-14.6); RBC Distribution Width SD 43.1 fl (35.1-43.9); Red Blood Count 4.45 M/mm3 (4.6-6.2); White Blood Count 19.3 K/mm3 (4.4-11.0)
[2022-08-28] MEDS: morphine 8 MG/ML Syringe 6 MG IV (19:05)
[2022-08-28] MEDS: Ondansetron 4 MG/2 ML Vial IV (19:05)
[2022-08-28 19:08] LABS: Prothrombin Time (Protime)PT. 12.9 SECONDS (11.7-14.9)
[2022-08-28 19:11] LABS: Anion Gap 8 (5-15); BUN 36 mg/dL (7-18); BUN/Creat Ratio 22.4 RATIO (10-20); Chloride 107 mmol/L (98-107); Creatinine, Serum 1.61 mg/dL (0.70-1.30); EST Glomerular Filtration Rate 44 mL/min (>60); Est Glom Filt Rate - Afr Amer 53 mL/min (>60); Estimated Creatinine Clearance 39.02 ml/min; Glucose 180 mg/dL (74-106); Potassium 3.7 mmol/L (3.5-5.1); Sodium Level 140 mmol/L (136-145)
--- NOTE | 2022-08-28 19:23 | RAD_ITS ---
STUDY: X-RAY CHEST REASON FOR EXAM: Male, 82 years old. Preop. TECHNIQUE: Single AP portable view of the chest. COMPARISON: December 16, 2016. FINDINGS: The lungs are clear and expanded. There is no demonstrated pleural abnormality. Normal size heart. There is interval placement of a dual lead cardiac pacemaker. The generator overlies the left chest. Normal mediastinum and linda. Normal visualized pulmonary arteries. There is atherosclerotic calcification of the aortic arch with tortuosity. There are diffuse degenerative changes of the visualized thoracic spine. There is degenerative osteoarthritis of the bilateral shoulders. There is no demonstrated abnormality of the visualized soft tissue structures of the upper abdomen. RAD/Chest 1 View (Portable) IMPRESSION: Interval placement of a cardiac pacemaker since the 2016 study. There is no acute cardiopulmonary disease. Electronically Signed: Gonzalo Paz DO at 20:30 EDT ,
--- NOTE | 2022-08-28 20:25 | NURSING ---
pt has a [employer] pace maker. this RN did a pacer check on pt. report is printing to [employer] and then will be sent to [facility]
[2022-08-28] MEDS: Senna/Docusate Sodium 1 Tablet 2 TABLET PO (22:49)
[2022-08-28] MEDS: Lisinopril 40 MG Tablet PO ×2 (22:49)
[2022-08-28] MEDS: hydrALAZINE 25 MG Tablet PO (22:49)
[2022-08-28] MEDS: Atorvastatin Calcium 80 MG Tablet PO (22:50)
[2022-08-28] MEDS: 0.9% Normal Saline 1,000 ML 75 ML IV (22:57)
[2022-08-28] MEDS: Insulin Lispro 100 UNIT/ML INSULN.PEN SC (23:00)
[2022-08-28 23:16] LABS: Bedside Glucose 172 mg/dL (74-106)
[2022-08-29] VITALS (15 sets, daily range): BP systolic 119–158; BP diastolic 50–73; PULSE 70–88; RESP 15–20; TEMP 36.5–37.6; O2SAT 90–98; BMI 52.0; BMI 23.7
[2022-08-29] MEDS: Morphine 4 MG/ML Syringe IV ×2 (05:09→21:48)
[2022-08-29] MEDS: 0.9% Saline Lock 10 ML Syringe IV ×2 (05:11→21:48)
[2022-08-29 05:21] LABS: Bedside Glucose 117 mg/dL (74-106)
--- NOTE | 2022-08-29 07:00 | CONS.ORTHO ---
HPI Consult Data Date of Consult: 08/29/22 HPI Narrative HPI Narrative: BRIAN OTERO, is a 82 M who presents after a mechanical fall from standing height 08/28/22 while he was watching his grandson play basketball at a local [employer] He tripped and fell over a cord protector onto his left side. He noted immediate pain in his left side. He attempted to ambulate. He was able to get home and eventually due to intolerable left hip pain his family brought him to [facility] emergency department. X-rays revealed a displaced left femoral neck fracture. I was consulted from the emergency department. Patient was admitted under the service of the hospitalist. I saw the patient in consultation. At time of examination, patient denies any other injury. Denies any head injury or loss consciousness. Denies any antecedent left hip or groin pain. Does report history of left leg pain in the posterior thigh which he has been told is due to sciatica. Patient ambulates without assistive device at baseline. Patient states he is quite active golfing usually 4 days a week in the summer months. Patient lives at home with his son. Denies any fevers, chills, nausea vomiting, chest pain or shortness of breath. [facility] Medical History Benign prostatic hyperplasia Coronary artery disease Diabetes mellitus, type 2 HLD (hyperlipidemia) Hypertension Pacemaker Stage 3b chronic kidney disease Home Medications amlodipine 5 mg tablet 10 mg PO DAILY Blood Pressure 12/16/16 [History Last Taken 08/27/22 18:00] chlorthalidone 25 mg tablet 25 mg PO QHS WATER PILL 12/16/16 [History Last Taken 08/27/22 18:00] hydralazine 100 mg tablet 25 mg PO TID BP 12/16/16 [History Last Taken 08/28/22 07:00] lisinopril 40 mg tablet 40 mg PO DAILY BP 06/13/20 [History Last Taken 08/28/22 07:00] aspirin 81 mg tablet 81 mg PO DAILY Heart 04/23/21 [History Last Taken 08/28/22 07:00] glimepiride 1 mg tablet 0.5 mg PO BID Diabetes 04/23/21 [History Last Taken 08/28/22 07:00] atorvastatin 80 mg tablet 80 mg PO QHS HYPERLIPIDEMIA 08/28/22 [History Last Taken 08/27/22 18:00] Allergy/AdvReac Type Severity Reaction Status Date / Time No Known Allergies Allergy Verified 08/28/22 20:33 Family History Mother Colon cancer Diagnosed age 83, passed age 84. Father Heart disease Hypertension Myocardial infarction CAD (coronary artery disease) Surgical History H/O cardiac catheterization History of coronary artery stent placement S/P TURP Status post placement of cardiac pacemaker Social History household members: family Smoking Status: Never smoker alcohol intake: never substance use type: does not use ROS ROS Narrative 12 point review of systems obtained, negative unless otherwise noted in HPI. Vital Signs Vital Signs Vital Signs: 08/28/22 15:54 08/28/22 16:38 08/28/22 19:24 Temperature 98.0 F 98.8 F Temperature Source Temporal Temporal Pulse Rate 80 88 Respiratory Rate 15 18 Respiratory Effort Normal Non-Labored Respiratory Depth Normal Respiratory Pattern Normal Blood Pressure 144/68 H 153/62 H Blood Pressure Mean 93 92 Blood Pressure Source Blood Pressure Position Blood Pressure Location Pulse Ox 98 96 Oxygen Delivery Method Room Air Room Air Room Air 08/28/22 20:20 08/28/22 21:37 08/28/22 20:36 Temperature 98.2 F 98.3 F Temperature Source Oral Oral Pulse Rate 84 75 Respiratory Rate 16 16 Respiratory Effort Respiratory Depth Respiratory Pattern Blood Pressure 154/70 H 142/66 H Blood Pressure Mean 98 91 Blood Pressure Source Monitor Monitor Blood Pressure Position Semi-Fowlers Sitting Blood Pressure Location Left Arm Right Arm Pulse Ox 95 93 95 Oxygen Delivery Method Room Air Room Air Room Air 08/28/22 22:49 08/28/22 20:16 08/29/22 01:46 EST Temperature 98.3 F Temperature Source Oral Pulse Rate 75 73 Respiratory Rate 16 Respiratory Effort Normal Respiratory Depth Normal Respiratory Pattern Normal Blood Pressure 142/66 H 122/73 H Blood Pressure Mean 89 Blood Pressure Source Blood Pressure Position Sitting Blood Pressure Location Right Arm Pulse Ox 97 93 Oxygen Delivery Method Room Air Room Air 08/29/22 05:20 Temperature 98.8 F Temperature Source Oral Pulse Rate 70 Respiratory Rate 16 Respiratory Effort Respiratory Depth Respiratory Pattern Blood Pressure 135/56 H Blood Pressure Mean 82 Blood Pressure Source Monitor Blood Pressure Position Semi-Fowlers Blood Pressure Location Right Arm Pulse Ox 92 Oxygen Delivery Method Room Air Weight Weight: 179 lb 0.246 oz Body Mass Index (BMI) 52.0 Physical Exam Narrative General -A&Ox3, NAD, appears stated age. Vital signs stable, afebrile. Respiratory -normal work of breathing, no intercostal retractions. CV -pulses regular, brisk capillary refill ?4 limbs. Abdomen-soft, nontender, nondistended. No guarding, rigidity, rebound tenderness. Musculoskeletal/neurologic -full range of motion nontender throughout bilateral upper extremities, right lower extremity with full sensation and strength in all dermatomes and myotomes. No midline cervical tenderness. Left lower extremity-shortening, abducted, externally rotated left lower extremity. Pain with logroll of the left lower extremity. Nontender throughout the left knee femoral shaft, tibial shaft and left foot/ankle. Brisk capillary refill. Sensation intact light touch L3-S1 dermatomes. DF, PF, EHL intact. DP, PT 2+. Pelvis is stable, nontender. Skin is intact without lacerations, abrasions. No ecchymosis noted. Lab / Micro Data Result Diagrams: 08/28/22 18:47 08/28/22 18:47 Labs: Laboratory Results - last 24 hr 08/28/22 18:47: WBC 19.3 H, RBC 4.45 L, Hgb 13.6, Hct 41.2, MCV 92.6, MCH 30.6, MCHC 33.0, RDW Std Deviation 43.1, RDW Coeff of Facundo 12.7, Plt Count 352, MPV 9.7 08/28/22 18:47: PT 12.9, INR 1.0, APTT 28.0 08/28/22 18:47: Sodium 140, Potassium 3.7, Chloride 107, Carbon Dioxide 25.0, Anion Gap 8, BUN 36 H, Creatinine 1.61 H, Estim Creat Clear Calc 39.02, Est GFR (MDRD) Af Amer 53 L, Est GFR (MDRD) Non-Af 44 L, BUN/Creatinine Ratio 22.4 H, Glucose 180 H, Calcium 9.0 08/28/22 19:12: Blood Type A NEGATIVE, Antibody Screen NEGATIVE 08/28/22 22:56: POC Glucose 172 H 08/29/22 06:02: POC Glucose 117 H Radiology Impression Pelvis X-Ray 08/28/22 16:49 IMPRESSION: 1. Mildly displaced fracture left femoral neck. 2. Degenerative changes of bilateral hips and lumbar spine. Electronically Signed: Gonzalo BrockwayDO ras at 17:43 EDT , Femur X-Ray 08/28/22 17:00 IMPRESSION: Mildly displaced fracture of the left femoral neck. Electronically Signed: Gonzalo Paz DO at 17:42 EDT Reading Location ID and State: [facility] / [place] Tel [phone], Service support , Chest X-Ray 08/28/22 19:23 IMPRESSION: Interval placement of a cardiac pacemaker since the 2016 study. There is no acute cardiopulmonary disease. Electronically Signed: Gonzalo BrockwayDO ras at 20:30 EDT Reading Location ID and State: [facility] / [place] Tel [phone], Service support , Assessment & Plan Assessment/Plan (1) Closed fracture of left hip: PLAN: Patient sustained displaced left subcapital femoral neck fracture. -Closed, neurovascularly intact -Isolated injury -Recommending surgical intervention in the form of left hip hemiarthroplasty -I discussed the procedure-its risks, benefits and alternative. Risks include but are not limited to bleeding, infection, loss of life or limb, risk of anesthesia, persistent pain or disability, need for additional surgery, subsidence of component, instability, failure of orthopedic hardware, neurovascular injury, DVT or PE. Patient expressed understanding of these risks and wished proceed with surgery. -Maintenance IV fluids, clear liquid diet after midnight n.p.o. at 2 hours prior to surgery -Medical optimization per primary. -Type and screen -2 g Ancef on-call to the OR -Bedrest, heel protectors -Plan to proceed with surgery this morning. Thank you for this consultation.
[2022-08-29] MEDS: Lactated Ringers 1,000 ML 15 ML IV (07:30)
[2022-08-29] MEDS: Cefazolin 2 GM in 0.9% Normal Saline 100 ML IV ×3 (07:50→23:35)
[2022-08-29] MEDS: Bupivacaine 0.25% 30 ML Vial (08:45)
--- NOTE | 2022-08-29 08:48 | NURSING ---
0730-PT OFF UNIT FOR SURGERY
--- NOTE | 2022-08-29 09:19 | RAD_ITS ---
STUDY: X-RAY - PELVIS AND LEFT HIP REASON FOR EXAM: Male, 82 years old. Post Op -- AP both hips on single janet/lateral of op hip PACU TECHNIQUE: 2 views of the pelvis and hip. COMPARISON: 08/28/2022 FINDINGS: There are degenerative changes of the sacroiliac joints. There are degenerative changes of the right hip. There is a new left hip arthroplasty in place that is grossly anatomic in alignment. There are postsurgical changes within the soft tissues of the left proximal thigh. RAD/Hip Min 2 Views (Portable) IMPRESSION: New left hip arthroplasty, grossly anatomic in alignment. Degenerative changes. Electronically Signed: Nae Riley MD at 11:14 EST ,
--- NOTE | 2022-08-29 09:28 | OP.PCM_ITS ---
Report of Operation Date of Procedure: 08/29/22 Description of Surgical Findings:: Preoperative diagnosis: Left displaced femoral neck fracture Postoperative diagnosis: Left displaced femoral neck fracture Procedure: Left hip hemiarthroplasty Surgeon: Jaziel Forde DO [employer] Crew Leader: CINDY Maier Anesthesia: General endotracheal Anesthesiologist: Dr. Adams Complications: None apparent Drains: None Estimated blood loss: 250 cc Urinary output: None recorded IV fluids: 1 L crystalloid Specimens: Femoral head resection Surgical implants: [place] Accolade C 127 degree neck angle hip stem size #5, Unitrax neck adjustment sleeve +0 mm, Unitrax endoprosthesis head component outer diameter 51 mm, size 13 centralizer Indications: This is an 82-year-old male who sustained a fall onto his left hip from standing height after he tripped and fell while he was out watching his grandson play basketball 08/28/2022. This was an isolated injury. He was brought to [facility] where x-rays revealed a displaced left femoral neck fracture. He was admitted under the service of the hospitalist. I was consulted to see the patient for surgical recommendations. I recommended a left hip hemiarthroplasty due to the pattern and displacement. I reviewed the procedure with the patient, its risk, benefits, alternatives. Risks included but were not limited to bleeding, infection, loss of life or limb, risk of anesthesia, neurovascular injury, persistent pain, instability, need for additional surgery, failure of orthopedic hardware, loosening, osteolysis, need for assistive devices long-term. Patient expressed understanding wish to proceed with surgery. Description of procedure: Prior to the procedure, patient was brought to the preoperative holding area where patient was identified by name, medical record number and date of . I confirmed the side, site, operation to be performed with the patient. Informed consent was confirmed, All questions were answered to patient satisfaction. The operative extremity was marked. He was also seen by anesthesia staff and anesthesia consent obtained.At time of the operative procedure, pt was brought to the operative suite. General anesthesia was induced on the hospital bed and endotracheal tube placed. After adequate anesthesia, patient was transferred to a standard operating table. He was then positioned in the lateral decubitus position with the left side up and held in position by the pegboard positioner system. All bony prominences were well-padded. A axillary roll was placed under the patient's right axilla. Peroneal nerve was free with a blanket on the nonoperative extremity. Leg lengths were reproduced from patient's position when she was supine. The left lower extremity was then prepped and draped in normal, sterile orthopedic fashion. We performed a timeout with all parties in attendance in agreement with the side, site, and operation to be performed. No concerns were voiced and would like to proceed. I first marked an incision along the lateral aspect of the hip centered over the greater trochanteric tip. In standard posterior approach, a curvilinear incision was made above the trochanter. An approximately 12 cm incision was made. Skin was sharply incised with a 10 blade scalpel carried deep through subcutaneous layers to the level of the IT band. Gelpi retractors were then placed. A Velásquez was used to expose the IT band. Bovie cautery was then used for hemostasis and then to open the IT band. This was opened in line with the incision. The trochanteric bursa was then debrided. This identified the short external rotators after internal rotation of the hip. The fracture site was easily identified at this point. Short external rotators were taken down and tagged for later repair. Hip capsule was also tagged for repair with a stay suture. We then freshened the neck cut with a sagittal saw. Anterior and posterior acetabular retractors were placed to gain access to the femoral head. A corkscrew was used to remove the head. Any remaining debris was debrided from the acetabulum. We then placed the femoral head on the back table for measurement. We did use trial heads and selected a final size 51 mm with good suction fit. Box chisel was then utilized to gain access to the femoral canal. Canal finder was placed. Sequential broaches were used in press-fit manner. A final size 5 achieved excellent vertical and rotational stability. We then trialed with a standard and subsequently high offset stem. I offset did achieve excellent stability and reproduction of abductor tension. I then prepared the femur for cementing. We trialed a centralizer to determine appropriate size. Simplex cement was then mixed on the back table. I placed a cement restrictor to an appropriate depth allowing for a 5 mm distal cement mantle. Wire brush was used to remove blood from the femoral canal. I then thoroughly irrigated the femoral canal. Canal was suctioned dry. I then placed dry vaginal packing to pack the femoral canal. After 3 minutes, the cement was pressurized in the femoral canal. Size #2 stem was then placed by hand to an appropriate depth recreating appropriate anteversion of the femoral neck. This was held in place while cement cured. Excess cement was removed. After the cemented hardened, we copiously irrigated the wound with normal saline solution and sterile Betadine solution. I retrialed with a +0 mm head trial which appropriately reproduce his leg lengths and was stable through an arc of motion. Final dislocation was performed. The trunnion was irrigated and dried. Final head was then impacted over the Martins taper neck. Final reduction was performed. A posterior capsular repair was performed with #2 Ethibond suture via bone tunnels. IT band was closed watertight with #1 strata fix suture. Deeper fascial layers were closed with 0 Vicryl suture in interrupted fashion. Subcutaneous layers were reapproximated with 2-0 Vicryl suture and skin reapproximated with skin alex. A silver dressing was applied. Patient tolerated procedure well without complication. He was positioned back in the supine position on her hospital bed and subsequently extubated safely. He was transferred to PACU in stable condition. Blankets were placed between the patient's legs. Post Operative Plan: Weightbearing: Weightbearing as tolerated left lower extremity, posterior hip precautions. Blankets between the legs for the first 24 hours while in bed Antibiotics: Ancef 1 g every 8 hours x 3 doses DVT Prophylaxis: Plan for Lovenox SQ 40 mg daily x 28 days postoperatively Valero: None Dressing: Maintain silver dressing x7 days X-Rays: PACU x-rays were reviewed demonstrated well-positioned left hip hemiarthroplasty implant. Follow-up 2-week x-rays in the office. Follow-up: 2 weeks in my office for staple removal
--- NOTE | 2022-08-29 09:43 | PN.HOSP_ITS ---
Subjective Subjective DOS: 08/29/2022 CC: Left upper leg pain Status post left hip hemiarthroplasty, overall feeling fair. Does have some pain in the leg but no other complaints this a.m. Objective Data Objective Data Vital Signs: Vital Signs Temp Pulse Resp BP Pulse Ox O2 Del Method 99.2 F H 77 16 119/67 92 Room Air 08/29/22 09:22 08/29/22 09:36 08/29/22 09:36 08/29/22 09:36 08/29/22 09:36 08/29/22 09:36 Oxygen Delivery Method Room Air Weight: 81.2 kg Body Mass Index (BMI) 52.0 Intake & Output: Intake and Output for Last 24 Hours 08/27/22 08/28/22 08/29/22 23:59 23:59 22:59 Intake Total 110 / 110 Output Total 400 / 400 Balance -290 / -290 Lab / Micro Data Result Diagrams: 08/29/22 14:39 08/29/22 14:39 Labs: Laboratory Results - last 24 hr 08/28/22 18:47: WBC 19.3 H, RBC 4.45 L, Hgb 13.6, Hct 41.2, MCV 92.6, MCH 30.6, MCHC 33.0, RDW Std Deviation 43.1, RDW Coeff of Facundo 12.7, Plt Count 352, MPV 9.7 08/28/22 18:47: PT 12.9, INR 1.0, APTT 28.0 08/28/22 18:47: Sodium 140, Potassium 3.7, Chloride 107, Carbon Dioxide 25.0, An ion Gap 8, BUN 36 H, Creatinine 1.61 H, Estim Creat Clear Calc 39.02, Est GFR (MDRD) Af Amer 53 L, Est GFR (MDRD) Non-Af 44 L, BUN/Creatinine Ratio 22.4 H, Glucose 180 H, Calcium 9.0 08/28/22 19:12: Blood Type A NEGATIVE, Antibody Screen NEGATIVE 08/28/22 22:56: POC Glucose 172 H 08/29/22 06:02: POC Glucose 117 H Radiography Diagnostic Testing: Radiology Impression Pelvis X-Ray 08/28/22 16:49 IMPRESSION: 1. Mildly displaced fracture left femoral neck. 2. Degenerative changes of bilateral hips and lumbar spine. Electronically Signed: Gonzalo Paz DO at 17:43 EDT , Femur X-Ray 08/28/22 17:00 IMPRESSION: Mildly displaced fracture of the left femoral neck. Electronically Signed: Gonzalo Paz at 17:42 EDT , Chest X-Ray 08/28/22 19:23 IMPRESSION: Interval placement of a cardiac pacemaker since the 2017 study. There is no acute cardiopulmonary disease. Electronically Signed: Gonzalo PazDO at 20:30 EDT , Physical Exam Const alert and no apparent distress Constitutional Narrative: Oriented HEENT normocephalic and head/scalp atraumatic Eyes Eyes Narrative: EOM grossly intact, anicteric Neck supple Resp normal respiratory effort and clear to auscultation bilaterally Cardio regular rate and regular rhythm GI soft to palpation, non-tender and non-distended Extremity Extremity Narrative: Holding left leg straight, did not test strength given recent 3 Neuro moves all extremities Neuro Narrative: No overt focal deficits appreciated Psych Psych Narrative: Cooperative Assessment & Plan Assessment/Plan (1) Closed fracture of left hip: PLAN: Plan The patient is an 82 y/o M w/ PMHx: CKD stage IIIb, HTN, HLD, BPH, Hx bradycardia s/p pacemaker placement, Diabetes mellitus type II, CAD s/p PCI x 1, Dilated Cardiomyopathy who presents to the [facility] ED on 08/28/22 with history of being at an athletic event and unfortunately tripped on a cord cover in the gym, fell and landed on his left hip on the hard floor with immediate pain and debility following prompting ED evaluation. #Left femoral neck fracture Plain film noting left femoral neck fracture Ortho consulted, left hip Janak arthroplasty 08/29/22, doing well #2. CAD, Dilated Cardiomyopathy: Recent ECHO 03/12/22 with noted EF 55%, no evidence for diastolic dysfunction, trivial aortic valve insufficiency. s/p PCI x 1, will continue asa, statin, lisinopril, not on BB, s/p pacemaker placement #3. Leukocytosis, suspect likely related to acute presentation with stress response #1, no obvious evidence of recent infection, will continue to treat as noted, repeat CBC in a.m., procalcitonin requested. #4. Diabetes mellitus type II: Hold oral home regimen, ADA diet until n.p.o. status, accu checks w/ ISS. #5. History of bradycardia: From discussion with family patient significant br adycardia down into the 20s previously status post pacemaker placement #6. Chronic Kidney Disease Stage IIIb: Admission BUN/Cr 36/1.61, baseline renal function noted previously 1.5-1.8, continue to trend BMP #7. Hypertension: Continue home regimen including lisinopril, hydralazine, Norvasc, PRN hydralazine. #8. Hyperlipidemia: We will continue patient on statin therapy. #9. BPH: s/p TURP, previously on flomax, not on current list, clarifying and add if appropriate. #10. DVT prophylaxis: SCDs, hold chemoprophylaxis for planned OR as noted. Charges/Coding Visit Charges Inpatient E&M: 02895 Subs Hosp L2
[2022-08-29 09:46] LABS: Bedside Glucose 112 mg/dL (74-106)
[2022-08-29] MEDS: 0.9% Normal Saline 1,000 ML 75 ML IV (10:58)
[2022-08-29] MEDS: amLODIPine 10 MG Tablet PO (10:59)
[2022-08-29] MEDS: Senna/Docusate Sodium 1 Tablet 2 TABLET PO ×2 (10:59→21:54)
[2022-08-29] MEDS: Aspirin 81 MG TAB.CHEW PO (10:59)
[2022-08-29] MEDS: Calcium Carbonate 500 MG Tablet PO ×2 (11:33→16:08)
[2022-08-29 11:46] LABS: Bedside Glucose 135 mg/dL (74-106)
[2022-08-29 14:54] LABS: Absolute Lymphocyte Count 1.05 X10^3/uL (0.83-4.51); Basophil# 0.06 X10^3/uL; Basophil% 0.4 % (0-1); Eosinophil# 0.03 X10^3/uL; Eosinophils% 0.2 % (0-5); Hemoglobin 12.3 g/dL (13.0-16.5); Lymphocyte # 1.05 X10^3/ul (0.83-4.51); Lymphocyte % 7.2 % (19-41); Mean Corp Hgb Conc 33.2 g/dL (32-36); Mean Corpuscular Hgb 31.1 pg (27.0-32.0); Mean Corpuscular Volume 93.7 fL (80-94); Mean Platelet Vol. 9.8 fl (6.2-12.0); Monocyte# 1.29 X10^3/uL; Monocyte% 8.9 % (0-10); NRBC Flagged by Analyzer 0 % (0-5); Neutrophil # 12.03 X10^3/uL (2.7-7.7); Platelet Count 290 K/mm3 (150-450); RBC Distribution Width CV 12.8 % (11.6-14.6); RBC Distribution Width SD 44.2 fl (35.1-43.9); Red Blood Count 3.95 M/mm3 (4.6-6.2); White Blood Count 14.5 K/mm3 (4.4-11.0)
[2022-08-29] MEDS: hydrALAZINE 25 MG Tablet PO ×2 (15:12→21:54)
[2022-08-29 15:13] LABS: ALB/GLOB Ratio 0.9 RATIO (0.9-2.4); AST(SGOT) 37 U/L (15-37); Alanine Aminotransfer ALT/SGPT 36 U/L (16-61); Alkaline Phosphatase 80 U/L (45-117); Anion Gap 7 (5-15); BUN 30 mg/dL (7-18); BUN/Creat Ratio 17.9 RATIO (10-20); Calcium,Total 8.3 mg/dL (8.5-10.1); Chloride 108 mmol/L (98-107); Creatinine, Serum 1.68 mg/dL (0.70-1.30); EST Glomerular Filtration Rate 42 mL/min (>60); Est Glom Filt Rate - Afr Amer 51 mL/min (>60); Estimated Creatinine Clearance 38.97 ml/min; Globulin 3.2 g/dL (2.2-4.2); Glucose 178 mg/dL (74-106); Potassium 3.6 mmol/L (3.5-5.1); Protein, Total 6.2 g/dL (6.4-8.2); Sodium Level 140 mmol/L (136-145)
[2022-08-29] MEDS: Insulin Lispro 100 UNIT/ML INSULN.PEN SC ×2 (16:10→21:55)
[2022-08-29 16:40] LABS: Bedside Glucose 196 mg/dL (74-106)
[2022-08-29] MEDS: Atorvastatin Calcium 80 MG Tablet PO (21:54)
--- NOTE | 2022-08-29 23:00 | NURSING ---
Around 1999, pt voiced concerns of abdominal pain and difficulty urinating. Stood pt at bedside to attempt void, but was only able to void a few drops. Pt returned to bed, bladder scanned for 765ml. This RN attempted to straight cath, but was unable to place catheter. deandre Avila RN attempted catheter placement without success as well. Dr. Gutierrez notified and consulted Dr. Costa for urinary retention and difficult catheter placement. This RN notified Dr. Costa who stated he would be in to see the pt. Dr. Costa arrived around 2244 to insert catheter at bedside without success with plan to take pt for emergency surgery to place catheter. Nursing subwarehouse supervisor at bedside. Obtained signed consent. Paz Fonseca, pt's daughter made aware of plan for surgery-stating she is not going to come in for the procedure, but would like an update after surgery. RN made oncoming RN and viscose cellar charge hand aware. Report called to NA Lara in surgery to give report. Pt transported to surgery with RN and PRESIDENT AND CEO assisting.
--- NOTE | 2022-08-29 23:18 | PCM.CONS.U ---
Assessment & Plan Assessment/Plan (1) Bladder neck contracture: PLAN: I suspect he has a bladder neck contracture I am almost barely able to get the catheter in but cannot get the catheter all the way into the bladder. So [facility] probably incision of the bladder neck and placement of Valero. HPI Consult Data Date of Consult: 08/29/22 HPI Narrative Reason for Consultation: Urinary retention unable to place Valero HPI Narrative: BRIAN OTERO, is a 82 M who presents To the hospital with a fractured hip he underwent hip replacement surgery. After surgery he was only dribbling a little bit as urine. He does have a history of a retention of urine with over 1200 cc in his bladder back in 2019 and he underwent a TURP for retention of urine. After surgery he was seen in the office and he was urinating okay. And a 6-month follow-up was recommended and the patient did call and cancel his appointment to see me 6 months after surgery stating in the notes into the office that he was doing well did not see necessary to see me. He now presents to the hospital has not been able to urinate the nursing staff has not been able to place a catheter he does relate having to urinate 10-12 times at night and has been having dribbling with urination and slow flow. I attempted to place a catheter at the bedside but this seems to be a bladder neck contracture or some scar tissue in the prostatic channel I cannot get the catheter through after 2 tries so he will have to go to surgery today for a Valero placement and possible suprapubic tube [facility] Medical History Benign prostatic hyperplasia Coronary artery disease Diabetes mellitus, type 2 HLD (hyperlipidemia) Hypertension Pacemaker Stage 3b chronic kidney disease Home Medications amlodipine 5 mg tablet 10 mg PO DAILY Blood Pressure 12/16/16 [History Last Taken 08/27/22 18:00] chlorthalidone 25 mg tablet 25 mg PO QHS WATER PILL 12/16/16 [History Last Taken 08/27/22 18:00] hydralazine 100 mg tablet 25 mg PO TID BP 12/16/16 [History Last Taken 08/28/22 07:00] lisinopril 40 mg tablet 40 mg PO DAILY BP 06/13/20 [History Last Taken 08/28/22 07:00] aspirin 81 mg tablet 81 mg PO DAILY Heart 04/23/21 [History Last Taken 08/28/22 07:00] glimepiride 1 mg tablet 0.5 mg PO BID Diabetes 04/23/21 [History Last Taken 08/28/22 07:00] atorvastatin 80 mg tablet 80 mg PO QHS HYPERLIPIDEMIA 08/28/22 [History Last Taken 08/27/22 18:00] Allergy/AdvReac Type Severity Reaction Status Date / Time No Known Allergies Allergy Verified 08/28/22 20:33 Family History Mother Colon cancer Diagnosed age 83, passed age 84. Father Heart disease Hypertension Myocardial infarction CAD (coronary artery disease) Surgical History H/O cardiac catheterization History of coronary artery stent placement S/P TURP Status post placement of cardiac pacemaker Social History household members: family Smoking Status: Never smoker alcohol intake: never substance use type: does not use ROS Constitutional Constitutional: Denies chills, fever(s) or malaise Eyes Eyes: Denies blurry vision or change in vision ENT HEENT: Reports none Cardiovascular Cardiovascular: Denies chest pain or palpitations Respiratory/Chest Respiratory/Chest: Denies cough or shortness of breath with exertion Gastrointestinal Gastrointestinal: Denies abdominal pain, constipation or diarrhea Genitourinary Genitourinary: Reports other Details: Unable to urinate postvoid residuals very high at the bedside over 700 cc per nurses Musculoskeletal Musculoskeletal: Denies back pain, joint stiffness or joint swelling Integumentary Integumentary: Denies dry skin, jaundice, lesions or rash Neurologic Neurologic: Denies confusion, syncope or weakness Psychiatric Psychiatric: Reports none; Denies anxiety or depression Endocrine Endocrinology: Denies excessive sweating, fatigue or flushing Hematologic/Lymphatic Hematologic/Lymphatic: Denies anemia, easy bleeding or easy bruising Physical Exam Const alert and oriented x3 General Appearance: cooperative HEENT normocephalic, head/scalp atraumatic, EAC's normal and TM's normal bilaterally Eyes PERRL and EOMs intact bilaterally Pupil: sluggish Neck no lymphadenopathy, supple and no JVD General: trachea midline Lymph Lymphatic: no lymphadenopathy noted, lymphedema and lymphadenopathy Resp normal respiratory effort, normal air movement and clear to auscultation bilaterally Cardio regular rate, regular rhythm and peripheral pulses 2+ throughout GI soft to palpation, non-tender and non-distended Extremity normal capillary refill and no clubbing, cyanosis or edema General Extremity: no tenderness to palpation of joints or extremities Skin no rashes or lesions noted General Skin Exam: turgor normal Lesions: no lesions Rashes: no rashes Neuro CN's II-XII intact bilaterally Speech: speech normal Motor Exam: strength 5/5 throughout; Negative for general weakness Psych thought process normal, cooperative and affect normal Appearance: appropriate Medical Records Data Attestation: I reviewed the patient's medical records Lab / Micro Data Result Diagrams: 08/29/22 14:39 08/29/22 14:39 Labs: Laboratory Results - last 24 hr 08/29/22 06:02: POC Glucose 117 H 08/29/22 09:25: POC Glucose 112 H 08/29/22 11:05: POC Glucose 135 H 08/29/22 14:39: WBC 14.5 H, RBC 3.95 L, Hgb 12.3 L, Hct 37.0 L, MCV 93.7, MCH 31.1, MCHC 33.2, RDW Std Deviation 44.2 H, RDW Coeff of Facundo 12.8, Plt Count 290, MPV 9.8, Immature Gran % (Auto) 0.300, Neut % (Auto) 83.0 H, Lymph % (Auto) 7.2 L, [place] % (Auto) 8.9, Eos % (Auto) 0.2, Baso % (Auto) 0.4, Absolute Neuts (auto) 12.0 H, Absolute Lymphs (auto) 1.05, Nucleated RBC % 0 08/29/22 14:39: Sodium 140, Potassium 3.6, Chloride 108 H, Carbon Dioxide 25.0, Anion Gap 7, BUN 30 H, Creatinine 1.68 H, Estim Creat Clear Calc 38.97, Est GFR (MDRD) Af Amer 51 L, Est GFR (MDRD) Non-Af 42 L, BUN/Creatinine Ratio 17.9, Glucose 178 H, Calcium 8.3 L, Total Bilirubin 1.20 H, AST 37, ALT 36, Alkaline Phosphatase 80, Total Protein 6.2 L, Albumin 3.0 L, Globulin 3.2, Albumin/Globulin Ratio 0.9 08/29/22 14:39: Hemoglobin A1c 7.0 H 08/29/22 16:10: POC Glucose 196 H Radiology Impression Hip X-Ray 08/29/22 09:19 IMPRESSION: New left hip arthroplasty, grossly anatomic in alignment. Degenerative changes. Electronically Signed: Nae Riley MD at 11:14 EST ,
[2022-08-29 23:40] LABS: Bedside Glucose 162 mg/dL (74-106)
[2022-08-30] VITALS (15 sets, daily range): BP systolic 99–144; BP diastolic 52–67; PULSE 71–91; RESP 16–18; TEMP 36.7–38; O2SAT 92–98
[2022-08-30] MEDS: Lidocaine Jelly 2% 20 ML Syringe (URO-JET) 1 APPLIC (00:45)
--- NOTE | 2022-08-30 00:58 | OP.PCM_ITS ---
Report of Operation Date of Procedure: 08/30/22 Pre-Operative Diagnosis: Retention of urine scar tissue Post-Operative Diagnosis: Retention of urine bladder neck contracture false passage Surgery/Procedure Performed:: Cystoscopy dilation of bladder neck contracture placement of Valero catheter Description of Surgical Findings:: Is an 82-year-old male who suffered an fracture and underwent a orthopedic procedure and hip surgery earlier today, at that time was reported that a straight cath was attempted but were not able to place a catheter as he had not had an external catheter put in. He underwent his hip surgery. Postop. He was only dribbling a little bit a urine was not able to urinate and then I was called around 11:00 tonight to assist the nurses to place a catheter they have tried several times with no success at the bedside I tried gently several times with no success as well so recommended we taken the surgery I suspect he is got a bladder neck contracture. Patient was taken back to the operating room at the smooth induction of a MAC local anesthesia he was given lidocaine jelly into the urethra penis and testicles were prepped and draped in usual sterile fashion went into the bladder with a flexible cystoscope the entire length the urethra was normal the sphincter was intact the urethra was intact verumontanum was identified but then when I got down to the bladder and prostate junction area there was a false passage below the bladder neck and looks like he had a bladder neck contracture with a high slit opening and is able to see I then used the flexible cystoscope patient was laid flat we did not put him in stirrups. And then I was able to put the wire through the bladder neck contracture I then dilated this from 12 Turk[place] to 18 Turkmen and then I tried the 16 [place] catheter the first time was not able to get in so then I went back and again the second time with the flexible cystoscope was able to get the flexible scope all the way into the bladder this also dilated the contracture little bit better and then after this I was able to get a 16 [place] tip catheter over the wire into the bladder with 10 cc of urine into the balloon and the bladder was draining clear yellow urine. Help to go home with a catheter to let this contracture heal up and this should keep it open and then once it is healed we will get the catheter out in the office for voiding trial after his discharge from the hospital he ought to go home with a catheter. Surgeon: Aniket Costa Type of Anesthesia: MAC Drains: Valero 16 fr. Admit VTE Documentation VTE Present on Admission: No VTE Mechan Device Prophylaxis: SCD's VTE Pharm Prophylaxis ordered?: No
[2022-08-30] MEDS: hydrALAZINE 25 MG Tablet PO ×3 (06:29→21:27)
[2022-08-30] MEDS: Insulin Lispro 100 UNIT/ML INSULN.PEN SC ×3 (06:31→21:36)
[2022-08-30 06:35] LABS: Absolute Lymphocyte Count 0.97 X10^3/uL (0.83-4.51); Absolute Neutrophil Count 13.4 X10^3/uL (2.0-7.7); Basophil% 0.6 % (0-1); Eosinophil# 0.06 X10^3/uL; Eosinophils% 0.4 % (0-5); Hematocrit 33.6 % (40-54); Hemoglobin 11.1 g/dL (13.0-16.5); Lymphocyte # 0.97 X10^3/ul (0.83-4.51); Lymphocyte % 5.9 % (19-41); Mean Corpuscular Hgb 30.7 pg (27.0-32.0); Mean Corpuscular Volume 93.1 fL (80-94); Mean Platelet Vol. 10.2 fl (6.2-12.0); Monocyte% 10.9 % (0-10); NRBC Flagged by Analyzer 0 % (0-5); Neutrophil # 13.44 X10^3/uL (2.7-7.7); Neutrophil % 81.7 % (47-70); POSITIVE DIFFERENTIAL YES; Platelet Count 252 K/mm3 (150-450); RBC Distribution Width CV 12.6 % (11.6-14.6); RBC Distribution Width SD 43.5 fl (35.1-43.9); Red Blood Count 3.61 M/mm3 (4.6-6.2); White Blood Count 16.5 K/mm3 (4.4-11.0)
[2022-08-30 06:59] LABS: ALB/GLOB Ratio 0.9 RATIO (0.9-2.4); AST(SGOT) 37 U/L (15-37); Alanine Aminotransfer ALT/SGPT 20 U/L (16-61); Albumin, Serum 2.6 g/dL (3.2-5.0); Alkaline Phosphatase 73 U/L (45-117); Anion Gap 7 (5-15); BUN 30 mg/dL (7-18); BUN/Creat Ratio 17.5 RATIO (10-20); Calcium,Total 7.8 mg/dL (8.5-10.1); Chloride 106 mmol/L (98-107); Creatinine, Serum 1.71 mg/dL (0.70-1.30); EST Glomerular Filtration Rate 41 mL/min (>60); Est Glom Filt Rate - Afr Amer 50 mL/min (>60); Estimated Creatinine Clearance 37.19 ml/min; Glucose 165 mg/dL (74-106); Potassium 3.3 mmol/L (3.5-5.1); Protein, Total 5.6 g/dL (6.4-8.2); Sodium Level 139 mmol/L (136-145)
--- NOTE | 2022-08-30 07:05 | PCM.PN.ORT ---
Subjective Subjective Patient seen and examined. Patient returned to operating room last evening due to urinary retention and inability to place a catheter, he underwent cystoscopy dilation with Valero placement. He reports some soreness in his left hip, otherwise denies new symptoms. Denies fevers, chills, nausea vomiting, chest pain or shortness of breath. Objective Data Objective Data Vital Signs: Vital Signs Temp Pulse Resp BP Pulse Ox O2 Del Method O2 Flow Rate 100 F H 81 16 141/67 H 94 Nasal Cannula 2 08/30/22 06:30 08/30/22 06:30 08/30/22 06:30 08/30/22 06:30 08/30/22 06:30 08/30/22 06:30 08/30/22 06:30 Oxygen Flow Rate (L/min) 2 Oxygen Delivery Method Nasal Cannula Weight: 183 lb 3.266 oz Body Mass Index (BMI) 23.7 Intake & Output: Intake and Output for Last 24 Hours 08/29/22 08/29/22 08/30/22 00:59 23:59 23:59 Intake Total 160 / 160 Output Total 825 / 825 Balance -665 / -665 Lab / Micro Data Result Diagrams: 08/29/22 14:39 08/30/22 06:01 Labs: Laboratory Results - last 24 hr 08/29/22 09:25: POC Glucose 112 H 08/29/22 11:05: POC Glucose 135 H 08/29/22 14:39: WBC 14.5 H, RBC 3.95 L, Hgb 12.3 L, Hct 37.0 L, MCV 93.7, MCH 31.1, MCHC 33.2, RDW Std Deviation 44.2 H, RDW Coeff of Facundo 12.8, Plt Count 290, MPV 9.8, Immature Gran % (Auto) 0.300, Neut % (Auto) 83.0 H, Lymph % (Auto) 7.2 L, [place] % (Auto) 8.9, Eos % (Auto) 0.2, Baso % (Auto) 0.4, Absolute Neuts (auto) 12.0 H, Absolute Lymphs (auto) 1.05, Nucleated RBC % 0 08/29/22 14:39: Sodium 140, Potassium 3.6, Chloride 108 H, Carbon Dioxide 25.0, Anion Gap 7, BUN 30 H, Creatinine 1.68 H, Estim Creat Clear Calc 38.97, Est GFR (MDRD) Af Amer 51 L, Est GFR (MDRD) Non-Af 42 L, BUN/Creatinine Ratio 17.9, Glucose 178 H, Calcium 8.3 L, Total Bilirubin 1.20 H, AST 37, ALT 36, Alkaline Phosphatase 80, Total Protein 6.2 L, Albumin 3.0 L, Globulin 3.2, Albumin/Globulin Ratio 0.9 08/29/22 14:39: Hemoglobin A1c 7.0 H 08/29/22 16:10: POC Glucose 196 H 08/29/22 21:53: POC Glucose 162 H 08/30/22 06:01: Sodium 139, Potassium 3.3 L, Chloride 106, Carbon Dioxide 26.0, Anion Gap 7, BUN 30 H, Creatinine 1.71 H, Estim Creat Clear Calc 37.19, Est GFR (MDRD) Af Amer 50 L, Est GFR (MDRD) Non-Af 41 L, BUN/Creatinine Ratio 17.5, Glucose 165 H, Calcium 7.8 L, Total Bilirubin 0.80, AST 37, ALT 20, Alkaline Phosphatase 73, Total Protein 5.6 L, Albumin 2.6 L, Globulin 3.0, Albumin/Globulin Ratio 0.9 Radiography Diagnostic Testing: Radiology Impression Hip X-Ray 08/29/22 09:19 IMPRESSION: New left hip arthroplasty, grossly anatomic in alignment. Degenerative changes. Electronically Signed: Nae Riley MD at 11:14 EST Reading Location ID and State: [address] [place] [address] Tel , Service support , Physical Exam Narrative General - A&Ox3, NAD. VSS/AF Left lower extremity -incisional dressing C/D/I. SILT Sural, Saphenous, SPN, DPN, Tibial N. distributions. DP, PT 2+. BCR. DF, PF, EHL /5. No calf TTP. Assessment & Plan Assessment/Plan (1) Closed fracture of left hip: PLAN: POD#1 s/p left hip hemiarthroplasty - Pain control - Medicine following for medical management - PT/OT-posterior hip precautions, weightbearing as tolerated left lower extremity - DVT PPX -Lovenox 40 mg SQ daily x28 days, SCDs, MARLI almaguer, early mobilization - Case management - D/C planning
[2022-08-30 07:06] LABS: Bedside Glucose 159 mg/dL (74-106)
[2022-08-30 07:08] LABS: Differential Indicated SCAN CRITERIA MET
--- NOTE | 2022-08-30 07:50 | FEM_PTH ---
PATIENT: BRIAN OTERO LOC: MS3 U#:[id number] AGE/SX: 82/M ROOM: NC319 RE08/28/[address]: Dr. Rachele Wilson MD : 1940 BED: 1 DIS: 09/01/2022 SPEC #: [id number] RECD: 08/30/22 11:09 STATUS: TANVIR RE #: [id number] GUILLERMO: 08/30/22 07:[address]: Jaziel Forde DEPT: SURGICAL PATHOLOGY RECD BY: Crystal Hector ENTERED: 08/30/22 11:28 SP TYPE: FEM HEAD OTHR DR: MD Dr. Suma Villalta MD Dr. Eugene Petrilla, DO Dr. Juan Miguel Proano, MD Dr. Nicholas Spittle, DO Dr. Paige Pierce, MD Tissues: Femoral region, NOS Procedures: Decalcification bone/plaque Surgery Specimen Level V Comments: @ Ordering doctor for DEC edited from to @ by JESSICA at 08/30/22 142 @ Ordering doctor for SUV edited from to @ by JESSICA at 08/30/22 1426 @ Submitting doctor edited from to @ by JESSICA at 08/30/22 1426 HEADER OPERATION: Left hip hemiarthroplasty PRE-OP DIAGNOSIS: Closed fracture of left hip TISSUE SUBMITTED: Femoral head of left hip MICROSCOPIC DIAGNOSIS Left femoral head, fracture, total joint resection: Consistent with organizing fracture callus. AM:chantel 09/02/2022 MICROSCOPIC DESCRIPTION Slides are reviewed. GROSS DESCRIPTION Received is one container labeled with the patient's name and designated femoral head left hip. The specimen consists of a aquino femoral head measuring 5.5 x 5.3 x 4 cm. The articular surface is grossly unremarkable. The non-articular surface is hemorrhagic and irregular consistent with fracture site. Also present free in the specimen container are multiple irregular fragments of dark-aquino pieces of bone measuring in aggregate 7 x 4 x 2 cm. Wool Cleaner sections are submitted in three cassettes as follows: 1 - fragments free in container, 2 & 3 - femoral head after decalcification. / AM:chantel 08/30/2022 TC:5 CPT: 16284, 57103
[2022-08-30] MEDS: 0.9% Normal Saline 1,000 ML 75 ML IV ×2 (08:13→21:22)
[2022-08-30] MEDS: Cefazolin 2 GM in 0.9% Normal Saline 100 ML IV (08:13)
[2022-08-30] MEDS: Calcium Carbonate 500 MG Tablet PO ×3 (08:17→16:40)
[2022-08-30] MEDS: Aspirin 81 MG TAB.CHEW PO (08:19)
[2022-08-30] MEDS: Enoxaparin 40 MG/0.4 ML Syringe SC (10:19)
[2022-08-30] MEDS: amLODIPine 10 MG Tablet PO (10:19)
[2022-08-30] MEDS: Senna/Docusate Sodium 1 Tablet 2 TABLET PO ×2 (10:19→21:26)
--- NOTE | 2022-08-30 10:40 | CASEMGMT ---
Addendum entered by Nikki Du 08/30/22 11:05: Pt aware he will be dc'd with a catheter and states this also increases difficulty of returning home. Original Note: NA MOSS Assessment: Face to Face with pt for initial transition planning/care coordination assessment. NA MOSS introduced self and role at [facility], pt voices understanding and consents to assessment. Pt is A/O x4 and answers all questions appropriately at this time. Prior to assessment, pt states that he is unable to return home. States he did not do well with therapy this morning and was unable to tolerate being up in chair. Pt states back to back surgeries was hard on his body. Care providers, pharmacy, and demographics verified/updated. Admitting Dx: L hip fx, fall PCP:Vince Specialists:Arsalan cardio; joaquin Reynolds Preferred Pharmacy: [facility] Insurance: [facility] Prescription Benefit: yes LW/HPOA: Pt states he has a LW/DPOA. He is unsure who is his DPOA. He is aware this is not on file at [facility] and he may bring in to be scanned into his chart. LNOK: Ulises Joshi, son; Paz Fonseca, dtr Living Arrangements: Pt lives with son, dil and grand children in a three story house with 4 steps to enter without a rail. Pt reports prior to his fall, he was I in ADL's and his dil managed home tasks. Transportation: Pt drives self and denies concerns with transportation. DME/HHC/SNF: Pt did not use AD prior to surgery. Pt has a BGM with sufficient supply of lancets and strips and tests every 2-3 days. Pt states his brother has an extra FWW he could borrow. Pt denies hx of HHC or SNF stays. Pt is interested in s/t therapy in a facility prior to returning home. Pt is aware that SW will be notified. Pt states no further concerns/needs. CM to follow. Advised pt to ask CM if any further question/concerns/needs arise, voices understanding. Pt Goal: SNF for s/t therapy Plan: SNF for s/t therapy, updated SW
[2022-08-30 12:40] LABS: Pathologist Review Reviewed
[2022-08-30 12:55] LABS: Bedside Glucose 264 mg/dL (74-106)
[2022-08-30] MEDS: oxyCODONE 5 MG Tablet PO ×2 (13:21→21:25)
--- NOTE | 2022-08-30 14:53 | CASEMGMT ---
Social Work SW informed by RNCM that pt would like to go to SNF for rehab following hip fracture. SW in to pt room to discuss discharge planning. Pt laying in bed resting and willing to discuss options. A list of SNF providers including quality and resource use data and consistent with the patient?s preferred geographic region, medical needs, and insurance network were provided from the [facility] Guide.?SW read options to pt as pt unable to move much at this time. Pt unsure of preference and would like to discuss with daughter, arminda Mullen. SW shared an electronic list can be sent to Paz but pt declined, stated wants to discuss options with Paz face to face and would provide options to this worker tomorrow morning. PLAN: SNF SHANTEL Minor
--- NOTE | 2022-08-30 16:05 | CASEMGMT ---
Social Work? SW in to pt room to verify Advanced Directives. Pt confirmed has HCPOA/LW. Pt named daughter Paz Fonseca , as agent. Pt made aware these documents are not on file and that pt can bring a copy in and drop off at Medical records in future if willing to do so. Pt voiced understanding.?? SHANTEL Minor?
--- NOTE | 2022-08-30 16:34 | PN.HOSP_ITS ---
Subjective Subjective Follow-up on acute left fracture/acute urine retention: Patient states that his pain is fairly controlled. He underwent emergent cystoscopy with dilatation of bladder neck contracture. Patient was found to have developed false passage at the bladder neck. Postoperatively, he complained of pain at the surgical site. Denied any fever or chills. Objective Data Objective Data Vital Signs: Vital Signs Temp Pulse Resp BP Pulse Ox O2 Del Method O2 Flow Rate 99.2 F H 80 16 124/55 H 92 Room Air 2 08/30/22 14:47 08/30/22 14:51 08/30/22 14:47 08/30/22 14:47 08/30/22 14:47 08/30/22 14:47 08/30/22 10:07 Oxygen Flow Rate (L/min) 2 Oxygen Delivery Method Room Air Weight: 83.1 kg Body Mass Index (BMI) 23.7 Intake & Output: Intake and Output for Last 24 Hours 08/29/22 08/29/22 08/30/22 00:59 23:59 23:59 Intake Total 367.5 / 367.5 Output Total 825 / 825 Balance -457.5 / -457.5 Lab / Micro Data Result Diagrams: 08/30/22 06:01 08/30/22 06:01 Labs: Laboratory Results - last 24 hr 08/29/22 16:10: POC Glucose 196 H 08/29/22 21:53: POC Glucose 162 H 08/30/22 06:01: WBC 16.5 H, RBC 3.61 L, Hgb 11.1 L, Hct 33.6 L, MCV 93.1, MCH 30.7, MCHC 33.0, RDW Std Deviation 43.5, RDW Coeff of Facundo 12.6, Plt Count 252, MPV 10.2, Immature Gran % (Auto) 0.500, Neut % (Auto) 81.7 H, Lymph % (Auto) 5.9 L, [place] % (Auto) 10.9 H, Eos % (Auto) 0.4, Baso % (Auto) 0.6, Absolute Neuts (auto) 13.4 H, Absolute Lymphs (auto) 0.97, Nucleated RBC % 0, Diff Path Review Reviewed 08/30/22 06:01: Sodium 139, Potassium 3.3 L, Chloride 106, Carbon Dioxide 26.0, Anion Gap 7, BUN 30 H, Creatinine 1.71 H, Estim Creat Clear Calc 37.19, Est GFR (MDRD) Af Amer 50 L, Est GFR (MDRD) Non-Af 41 L, BUN/Creatinine Ratio 17.5, Glucose 165 H, Calcium 7.8 L, Total Bilirubin 0.80, AST 37, ALT 20, Alkaline Phosphatase 73, Total Protein 5.6 L, Albumin 2.6 L, Globulin 3.0, Albumin/Globulin Ratio 0.9 08/30/22 06:21: POC Glucose 159 H 08/30/22 11:39: POC Glucose 264 H Physical Exam Narrative Physical exam: General: Alert, Oriented x3, Cooperative, No apparent distress HEENT: Atraumatic Oral: Moist Mucosa Neck: Supple Lungs: Clear to auscultation Cardiovascular: HS I+II, regular, no murmurs Abdomen: Bowel Sounds Present, Soft, Non Tender, Valero catheter draining dark brown urine Extremities: Scar and ice pack over the left hip Skin: No rashes, No breakdown Neurological: Grossly intact Psych/Mental Status: Appropriate Assessment & Plan Assessment/Plan (1) Bladder neck contracture: (2) Closed fracture of left hip: PLAN: Plan 1. Postop day #2 status post left hip arthroplasty Patient's pain is fairly controlled Continue on Tylenol and oxycodone as needed 2. Acute urinary retention, patient with false passage secondary to bladder neck contracture Status post emergent cystoscopy and 08/29/22 with placement of Valero catheter Patient draining dark urine Patient will be discharged with Valero catheter in place 3. CAD status post PCI/dilated cardiomyopathy/status post pacemaker Continue with aspirin, statin, lisinopril 4. Type II DM, sugars are fairly controlled, continue insulin sliding scale 5. Hypertension, controlled, continue amlodipine, hydralazine 6. DVT prophylaxis?Lovenox subcu Charges/Coding Visit Charges Inpatient E&M: 42682 Subs Hosp L2
[2022-08-30 17:11] LABS: Bedside Glucose 122 mg/dL (74-106)
[2022-08-30] MEDS: Ceftriaxone 1 GM/50 ML BAG IV (17:40)
[2022-08-30] MEDS: Acetaminophen 325 MG Tablet 650 MG PO (21:26)
[2022-08-30] MEDS: Atorvastatin Calcium 80 MG Tablet PO (21:27)
[2022-08-30] MEDS: Lisinopril 40 MG Tablet PO (21:28)
[2022-08-30 22:25] LABS: Bedside Glucose 232 mg/dL (74-106)
[2022-08-31] VITALS (12 sets, daily range): BP systolic 123–136; BP diastolic 54–70; PULSE 80–92; RESP 16–18; TEMP 36.7–37.4; O2SAT 90–94
[2022-08-31] MEDS: hydrALAZINE 25 MG Tablet PO ×3 (06:08→22:23)
[2022-08-31 06:30] LABS: Bedside Glucose 130 mg/dL (74-106)
--- NOTE | 2022-08-31 06:43 | PN.ORTHO_ITS ---
Subjective Subjective Patient seen and examined. Denies new complaints. Denies fevers, chills, nausea vomiting, chest pain or shortness of breath. Positive flatus, no BM since admission. Objective Data Objective Data Vital Signs: Vital Signs Temp Pulse Resp BP Pulse Ox O2 Del Method O2 Flow Rate 98.4 F 80 18 124/54 H 92 Room Air 2 08/31/22 04:00 08/31/22 06:08 08/31/22 04:00 08/31/22 04:00 08/31/22 04:00 08/31/22 04:00 08/31/22 00:42 Oxygen Flow Rate (L/min) 2 Oxygen Delivery Method Room Air Weight: 182 lb 4.804 oz Body Mass Index (BMI) 23.7 Intake & Output: Intake and Output for Last 24 Hours 08/29/22 08/30/22 08/31/22 23:59 23:59 23:59 Intake Total 1403.75 / 1403.75 Output Total 1425 / 1425 Balance -21.25 / -21.25 Lab / Micro Data Result Diagrams: 08/30/22 06:01 08/30/22 06:01 Labs: Laboratory Results - last 24 hr 08/30/22 06:01: WBC 16.5 H, RBC 3.61 L, Hgb 11.1 L, Hct 33.6 L, MCV 93.1, MCH 30.7, MCHC 33.0, RDW Std Deviation 43.5, RDW Coeff of Facundo 12.6, Plt Count 252, MPV 10.2, Immature Gran % (Auto) 0.500, Neut % (Auto) 81.7 H, Lymph % (Auto) 5.9 L, [place] % (Auto) 10.9 H, Eos % (Auto) 0.4, Baso % (Auto) 0.6, Absolute Neuts (auto) 13.4 H, Absolute Lymphs (auto) 0.97, Nucleated RBC % 0, Diff Path Review Reviewed 08/30/22 06:01: Sodium 139, Potassium 3.3 L, Chloride 106, Carbon Dioxide 26.0, Anion Gap 7, BUN 30 H, Creatinine 1.71 H, Estim Creat Clear Calc 37.19, Est GFR (MDRD) Af Amer 50 L, Est GFR (MDRD) Non-Af 41 L, BUN/Creatinine Ratio 17.5, Glucose 165 H, Calcium 7.8 L, Total Bilirubin 0.80, AST 37, ALT 20, Alkaline Phosphatase 73, Total Protein 5.6 L, Albumin 2.6 L, Globulin 3.0, Albumin/Globulin Ratio 0.9 08/30/22 06:21: POC Glucose 159 H 08/30/22 11:39: POC Glucose 264 H 08/30/22 16:37: POC Glucose 122 H 08/30/22 21:35: POC Glucose 232 H 08/31/22 06:07: POC Glucose 130 H Physical Exam Narrative General - A&Ox3, NAD. VSS/AF Left lower extremity -incisional dressing C/D/I. SILT Sural, Saphenous, SPN, DPN, Tibial N. distributions. DP, PT 2+. BCR. DF, PF, EHL 5/5. No calf TTP. Assessment & Plan Assessment/Plan (1) Closed fracture of left hip: PLAN: POD#2 s/p left hip hemiarthroplasty - Pain control - Medicine following for medical management - PT/OT-posterior hip precautions, weightbearing as tolerated left lower extremity - DVT PPX -Lovenox 40 mg SQ daily x28 days, SCDs, MARLI garsiae, early mobilization - Case management - D/C planning. Stable for discharge to SNF from my standpoint. Follow-up in 2 weeks. Maintain surgical dressing x7 days, then okay to leave open to air. Okay to shower with dressing on on postoperative day #4. Weightbearing as tolerated left lower extremity. Posterior hip precautions. Continue Lovenox upon discharge. I will sign off at this time. Please not hesitate to call if any questions or concerns arise.
--- NOTE | 2022-08-31 07:32 | PCM.CONS.B ---
Consult Date of Consult: 08/31/22 Reason for Consult status post cystoscopy dilation of bladder neck contracture and Valero placement he does have a false passage, he will need to go home with the Valero catheter and follow-up in my office in about 2 weeks to have it removed. Call me with questions
[2022-08-31 08:09] LABS: Absolute Neutrophil Count 10.6 X10^3/uL (2.0-7.7); Basophil# 0.08 X10^3/uL; Basophil% 0.6 % (0-1); Eosinophil# 0.31 X10^3/uL; Eosinophils% 2.3 % (0-5); Hematocrit 31.3 % (40-54); Hemoglobin 10.5 g/dL (13.0-16.5); Lymphocyte % 7.3 % (19-41); Mean Corp Hgb Conc 33.5 g/dL (32-36); Mean Corpuscular Hgb 31.2 pg (27.0-32.0); Mean Corpuscular Volume 92.9 fL (80-94); Mean Platelet Vol. 9.7 fl (6.2-12.0); Monocyte# 1.59 X10^3/uL; Monocyte% 11.6 % (0-10); NRBC Flagged by Analyzer 0 % (0-5); Neutrophil # 10.62 X10^3/uL (2.7-7.7); Neutrophil % 77.8 % (47-70); POSITIVE DIFFERENTIAL YES; Platelet Count 244 K/mm3 (150-450); RBC Distribution Width SD 44.2 fl (35.1-43.9); Red Blood Count 3.37 M/mm3 (4.6-6.2); White Blood Count 13.7 K/mm3 (4.4-11.0)
[2022-08-31 08:16] LABS: Differential Indicated SCAN CRITERIA MET
[2022-08-31 08:35] LABS: ALB/GLOB Ratio 0.7 RATIO (0.9-2.4); AST(SGOT) 25 U/L (15-37); Alanine Aminotransfer ALT/SGPT 11 U/L (16-61); Albumin, Serum 2.3 g/dL (3.2-5.0); Alkaline Phosphatase 63 U/L (45-117); Anion Gap 7 (5-15); BUN 27 mg/dL (7-18); BUN/Creat Ratio 19.4 RATIO (10-20); Calcium,Total 7.9 mg/dL (8.5-10.1); Chloride 109 mmol/L (98-107); Creatinine, Serum 1.39 mg/dL (0.70-1.30); EST Glomerular Filtration Rate 52 mL/min (>60); Est Glom Filt Rate - Afr Amer 63 mL/min (>60); Estimated Creatinine Clearance 45.75 ml/min; Globulin 3.3 g/dL (2.2-4.2); Glucose 132 mg/dL (74-106); Protein, Total 5.6 g/dL (6.4-8.2); Sodium Level 141 mmol/L (136-145)
[2022-08-31 08:58] LABS: Differential Comment SCANNED
[2022-08-31] MEDS: Aspirin 81 MG TAB.CHEW PO (09:36)
[2022-08-31] MEDS: Calcium Carbonate 500 MG Tablet PO ×3 (09:36→16:24)
[2022-08-31] MEDS: amLODIPine 10 MG Tablet PO (09:37)
[2022-08-31] MEDS: Senna/Docusate Sodium 1 Tablet 2 TABLET PO ×2 (09:37→22:24)
[2022-08-31] MEDS: Enoxaparin 40 MG/0.4 ML Syringe SC (09:37)
[2022-08-31] MEDS: oxyCODONE 5 MG Tablet PO (09:44)
[2022-08-31] MEDS: Ceftriaxone 1 GM/50 ML BAG IV (09:44)
--- NOTE | 2022-08-31 09:48 | CASEMGMT ---
Social Work SW in to meet with pt today to discuss preference for SNF. Pt reported had spoken with family last night and the one in [place] was what pt's children chose. Pt could not remember which [place] SNF the family wanted. Pt gave this SW permission to speak with daughter, Paz. SW called pt's daughter, Paz to discuss. Paz informed [facility], [facility]. PALLAVI updated Silvia Pollack, Discharge university administrative assistant of pt choice. Referral to be sent. PLAN: [facility], pending acceptance and precert SHANTEL Minor
--- NOTE | 2022-08-31 10:01 | CASEMGMT ---
Discharge Newspaper Vendor Referral sent via [facility] to [facility]. Shashi VILLALOBOS Corrosion Control Technician
--- NOTE | 2022-08-31 10:26 | PN.HOSP_ITS ---
Subjective Subjective Follow-up on acute left fracture/acute urine retention: Patient was seen and examined. His pain is controlled. Denied any chest pain.?Denied any fever or chills. Objective Data Objective Data Vital Signs: Vital Signs Temp Pulse Resp BP Pulse Ox O2 Del Method O2 Flow Rate 98.2 F 92 16 136/58 H 93 Room Air 2 08/31/22 09:32 08/31/22 09:32 08/31/22 09:32 08/31/22 09:32 08/31/22 09:32 08/31/22 09:44 08/31/22 06:52 Oxygen Flow Rate (L/min) 2 Oxygen Delivery Method Room Air Weight: 82.69 kg Body Mass Index (BMI) 23.7 Intake & Output: Intake and Output for Last 24 Hours 08/29/22 08/30/22 08/31/22 23:59 23:59 23:59 Intake Total 1403.75 / 1403.75 Output Total 1425 / 1425 300 / 300 Balance -21.25 / -21.25 -300 / -300 Lab / Micro Data Result Diagrams: 08/31/22 07:58 08/31/22 07:58 Labs: Laboratory Results - last 24 hr 08/30/22 06:01: Diff Path Review Reviewed 08/30/22 11:39: POC Glucose 264 H 08/30/22 16:37: POC Glucose 122 H 08/30/22 21:35: POC Glucose 232 H 08/31/22 06:07: POC Glucose 130 H 08/31/22 07:58: WBC 13.7 H, RBC 3.37 L, Hgb 10.5 L, Hct 31.3 L, MCV 92.9, MCH 31.2, MCHC 33.5, RDW Std Deviation 44.2 H, RDW Coeff of Facundo 13.0, Plt Count 244, MPV 9.7, Immature Gran % (Auto) 0.400, Neut % (Auto) 77.8 H, Lymph % (Auto) 7.3 L, [place] % (Auto) 11.6 H, Eos % (Auto) 2.3, Baso % (Auto) 0.6, Absolute Neuts (auto) 10.6 H, Absolute Lymphs (auto) 1.00, Nucleated RBC % 0, Differential Comment SCANNED, Diff Path Review February08/31/22 07:58: Sodium 141, Potassium 3.0 L, Chloride 109 H, Carbon Dioxide 25.0, Anion Gap 7, BUN 27 H, Creatinine 1.39 H, Estim Creat Clear Calc 45.75, Est GFR (MDRD) Af Amer 63, Est GFR (MDRD) Non-Af 52 L, BUN/Creatinine Ratio 19.4, Glucose 132 H, Calcium 7.9 L, Total Bilirubin 0.80, AST 25, ALT 11 L, Alkaline Phosphatase 63, Total Protein 5.6 L, Albumin 2.3 L, Globulin 3.3, Albumin/Globulin Ratio 0.7 L Physical Exam Narrative Physical exam: General: Alert, Oriented x3, Cooperative, No apparent distress HEENT: Atraumatic Oral: Moist Mucosa Neck: Supple Lungs: Clear to auscultation Cardiovascular: HS I+II, regular, no murmurs Abdomen: Bowel Sounds Present, Soft, Non Tender, Valero catheter draining dark brown urine, clearing up Extremities: Scar and? ice pack over the left hip Skin: No rashes, No breakdown Neurological: Grossly intact Psych/Mental Status: Appropriate Assessment & Plan Assessment/Plan (1) Bladder neck contracture: (2) Closed fracture of left hip: PLAN: Plan 1. Postop day #3 status post left hip arthroplasty Patient's pain is fairly controlled Continue on Tylenol and oxycodone as needed 2. Acute urinary retention, patient with false passage secondary to bladder neck contracture Status post emergent cystoscopy and 08/29/22 with placement of Valero catheter Patient will be discharged with Valero catheter in place 3. CAD status post PCI/dilated cardiomyopathy/status post pacemaker Continue with aspirin, statin, lisinopril 4. Type II DM, sugars are fairly controlled, continue insulin sliding scale 5. Hypertension, controlled, continue amlodipine, hydralazine 6. DVT prophylaxis?Lovenox subcu Charges/Coding Visit Charges Inpatient E&M: 04693 Subs Hosp L2
[2022-08-31] MEDS: Insulin Lispro 100 UNIT/ML INSULN.PEN SC ×3 (11:26→22:21)
[2022-08-31 12:26] LABS: Bedside Glucose 238 mg/dL (74-106)
--- NOTE | 2022-08-31 13:10 | CASEMGMT ---
Discharge Primary Education Professor [facility] states [facility] are not in network with insurance. This video game script writer sent referral to [facility]. Shashi VILLALOBOS Instructor Psychiatric Aide
[2022-08-31 13:42] LABS: Pathologist Review Reviewed
[2022-08-31] MEDS: Potassium Chloride Oral Tablet 20 MEQ 40 MEQ PO (14:09)
--- NOTE | 2022-08-31 14:23 | CASEMGMT ---
Discharge Hotel Services Sales Representative This customs entry writer called [facility] in regards to referral. Admissions is in a meeting and then will review. Shashi VILLALOBOS Sharepoint Administrator
[2022-08-31 17:00] LABS: Bedside Glucose 154 mg/dL (74-106)
[2022-08-31] MEDS: Atorvastatin Calcium 80 MG Tablet PO (22:24)
[2022-08-31] MEDS: Lisinopril 40 MG Tablet PO (22:24)
[2022-08-31 22:45] LABS: Bedside Glucose 225 mg/dL (74-106)
[2022-09-01] VITALS (9 sets, daily range): BP systolic 123–127; BP diastolic 50–62; PULSE 76–87; RESP 16–18; TEMP 36.1–36.9; O2SAT 93–96
[2022-09-01] MEDS: Acetaminophen 325 MG Tablet 650 MG PO ×3 (03:20→13:00)
[2022-09-01] MEDS: oxyCODONE 5 MG Tablet PO ×3 (03:20→13:00)
[2022-09-01] MEDS: hydrALAZINE 25 MG Tablet PO ×2 (06:06→15:02)
[2022-09-01 06:45] LABS: Bedside Glucose 130 mg/dL (74-106)
[2022-09-01 06:49] LABS: ALB/GLOB Ratio 0.7 RATIO (0.9-2.4); AST(SGOT) 22 U/L (15-37); Alanine Aminotransfer ALT/SGPT 10 U/L (16-61); Albumin, Serum 2.2 g/dL (3.2-5.0); Alkaline Phosphatase 62 U/L (45-117); Anion Gap 3 (5-15); BUN 26 mg/dL (7-18); Calcium,Total 8.2 mg/dL (8.5-10.1); Chloride 110 mmol/L (98-107); EST Glomerular Filtration Rate 56 mL/min (>60); Est Glom Filt Rate - Afr Amer 68 mL/min (>60); Estimated Creatinine Clearance 48.91 ml/min; Globulin 3.2 g/dL (2.2-4.2); Glucose 133 mg/dL (74-106); Potassium 3.3 mmol/L (3.5-5.1); Protein, Total 5.4 g/dL (6.4-8.2); Sodium Level 142 mmol/L (136-145)
[2022-09-01 06:51] LABS: Absolute Lymphocyte Count 1.47 X10^3/uL (0.83-4.51); Absolute Neutrophil Count 8.4 X10^3/uL (2.0-7.7); Basophil# 0.11 X10^3/uL; Basophil% 0.9 % (0-1); Eosinophil# 0.39 X10^3/uL; Eosinophils% 3.3 % (0-5); Hematocrit 28.6 % (40-54); Hemoglobin 9.8 g/dL (13.0-16.5); Lymphocyte # 1.47 X10^3/ul (0.83-4.51); Lymphocyte % 12.3 % (19-41); Mean Corp Hgb Conc 34.3 g/dL (32-36); Mean Corpuscular Hgb 31.7 pg (27.0-32.0); Mean Corpuscular Volume 92.6 fL (80-94); Mean Platelet Vol. 9.7 fl (6.2-12.0); Monocyte# 1.57 X10^3/uL; Monocyte% 13.1 % (0-10); NRBC Flagged by Analyzer 0 % (0-5); Neutrophil # 8.36 X10^3/uL (2.7-7.7); Neutrophil % 69.9 % (47-70); POSITIVE DIFFERENTIAL YES; Platelet Count 268 K/mm3 (150-450); RBC Distribution Width CV 12.9 % (11.6-14.6); RBC Distribution Width SD 43.7 fl (35.1-43.9); Red Blood Count 3.09 M/mm3 (4.6-6.2)
[2022-09-01 06:52] LABS: Differential Indicated SCAN CRITERIA MET
[2022-09-01 07:13] LABS: Differential Comment SCANNED
[2022-09-01] MEDS: Calcium Carbonate 500 MG Tablet PO ×2 (08:21→13:17)
[2022-09-01] MEDS: Aspirin 81 MG TAB.CHEW PO (08:22)
[2022-09-01] MEDS: Enoxaparin 40 MG/0.4 ML Syringe SC (09:55)
[2022-09-01] MEDS: 0.9% Saline Lock 10 ML Syringe IV ×3 (09:55→13:01)
[2022-09-01] MEDS: amLODIPine 10 MG Tablet PO (09:55)
--- NOTE | 2022-09-01 10:08 | CASEMGMT ---
Discharge Microsystems Engineer This administrative underwriter called [facility] to get a update on referral. School Commissioner stated admissions is in a meeting. This administrative underwriter will follow up. Shashi VILLALOBOS Sous Chef Kitchen Manager
--- NOTE | 2022-09-01 10:09 | PCM.PN.HOSP ---
Objective Data Objective Data Vital Signs: Vital Signs Temp Pulse Resp BP Pulse Ox O2 Del Method O2 Flow Rate 97.8 F 87 18 127/50 H 93 Room Air 2 09/01/22 08:16 09/01/22 08:16 09/01/22 08:16 09/01/22 08:16 09/01/22 08:16 09/01/22 08:23 09/01/22 05:00 Oxygen Flow Rate (L/min) 2 Oxygen Delivery Method Room Air Weight: 81.703 kg Body Mass Index (BMI) 23.7 Intake & Output: Intake and Output for Last 24 Hours 08/30/22 08/31/22 09/01/22 23:59 23:59 23:59 Intake Total 1403.75 / 1403.75 1050 / 1050 500 / 500 Output Total 1425 / 1425 1375 / 1975 1500 / 1500 Balance -21.25 / -21.25 -325 / -925 -1000 / -1000 Lab / Micro Data Result Diagrams: 09/01/22 06:25 09/01/22 06:25 Labs: Laboratory Results - last 24 hr 08/31/22 07:58: Diff Path Review Reviewed 08/31/22 11:24: POC Glucose 238 H 08/31/22 16:20: POC Glucose 154 H 08/31/22 22:20: POC Glucose 225 H 09/01/22 06:08: POC Glucose 130 H 09/01/22 06:25: WBC 12.0 H, RBC 3.09 L, Hgb 9.8 L, Hct 28.6 L, MCV 92.6, MCH 31.7, MCHC 34.3, RDW Std Deviation 43.7, RDW Coeff of Facundo 12.9, Plt Count 268, MPV 9.7, Immature Gran % (Auto) 0.500, Neut % (Auto) 69.9, Lymph % (Auto) 12.3 L, [place] % (Auto) 13.1 H, Eos % (Auto) 3.3, Baso % (Auto) 0.9, Absolute Neuts (auto) 8.4 H, Absolute Lymphs (auto) 1.47, Nucleated RBC % 0, Differential Comment SCANNED, Diff Path Review May 09/01/22 06:25: Sodium 142, Potassium 3.3 L, Chloride 110 H, Carbon Dioxide 29.0, Anion Gap 3 L, BUN 26 H, Creatinine 1.30, Estim Creat Clear Calc 48.91, Est GFR (MDRD) Af Amer 68, Est GFR (MDRD) Non-Af 56 L, BUN/Creatinine Ratio 20.0, Glucose 133 H, Calcium 8.2 L, Total Bilirubin 0.70, AST 22, ALT 10 L, Alkaline Phosphatase 62, Total Protein 5.4 L, Albumin 2.2 L, Globulin 3.2, Albumin/Globulin Ratio 0.7 L Micro: Microbiology 08/30/22 17:25 Urine Catheter - Valero Urine Culture - Final Culture exhibits no growth.
[2022-09-01] MEDS: Ceftriaxone 1 GM/50 ML BAG IV (10:55)
--- NOTE | 2022-09-01 10:58 | CASEMGMT ---
Discharge Learning Coordinator This abstract writer was accepted at [facility]. PALLAVI Rendon notified. Shashi VILLALOBOS Production Scheduler
--- NOTE | 2022-09-01 11:23 | CASEMGMT ---
Social Work SW received pc from pt daughter, Paz, requesting TCU vs. options provided yesterday. This SW [facility] beds and willing to accept pt. Candi will start precert this morning. PLAN: TCU, pending precert SHANTEL Minor
--- NOTE | 2022-09-01 11:26 | CASEMGMT ---
Discharge Perforator Typist This telegraphic typewriter mechanic received a call from PALLAVI Rendon that family no longer wants patient to go to [facility]. Family would prefer TCU. This telegraphic typewriter mechanic sent a message in [facility] to [facility] to cancel referral. Shashi VILLALOBOS General Manager Road Production
[2022-09-01] MEDS: Potassium Chloride Oral Tablet 20 MEQ 40 MEQ PO (13:00)
[2022-09-01] MEDS: Insulin Lispro 100 UNIT/ML INSULN.PEN SC (13:16)
--- NOTE | 2022-09-01 14:22 | TREXTCAR_ITS ---
Diet Diet Order/Speech Therapy: 08/31/22 14:34 Diet: Regular - General Is pt able to select menu?: Yes Routine Orders/Code Status Suppository Type: Dulcolax 10mg Suppository Frequency: Daily PRN Routine Lab Work: CBC (within 3 days) and - (within 3 days) Code Status: Full Code Wound(s) left hip: Wound Type: Surgical Incision left ravi: Wound Type: Skin Tear right ravi: Wound Type: Skin Tear Therapies Weight Bearing: Weight bearing as tolerated Problem/Diagnosis (1) Bladder neck contracture: Status: Acute Code(s): N32.0 - Bladder-neck obstruction (2) Closed fracture of left hip: Status: Acute Code(s): S72.002A - Fracture of unspecified part of neck of left femur, initial encounter for closed fracture Allergies/Procedures Done in Hospital Allergies No Known Allergies Allergy (Verified 08/28/22 20:33) Type of Care/Length of Stay Estimated LOS: Convalescent Care Less Than 30 days Type of Care Needed: Skilled Rehab Potential: Good Prognosis: Good Additional Orders/Day of Discharge Day of Discharge: 09/01/22 Dietary and Speech Recommendations Dietitian Recommendations/Changes: regular diet given inadequate oral intake after surgery, will consider ONS if PO intake remains poor at meals Discharge Plan Admission Admit Date/Time: 08/28/22 18:51 Primary Reason for Your Visit: Acute left hip fracture Attending Provider: Rachele Wilson Primary Care Provider: Jose Clarke Consulting Providers: Jaziel Forde ; Suma Nicolas ; Aniket Costa ; Janiya Robert Instructions Additional Instructions / Restrictions: Left Hip: Maintain surgical dressing x7 days, then okay to leave open to air. Okay to shower with dressing on on postoperative day #4. Weightbearing as tolerated left lower extremity. Posterior hip precautions. Discharge Orders/Prescriptions Prescriptions: New sennosides-docusate sodium [Stool Softener-Stimulant Laxat] 8.6-50 mg Tablet 2 tab PO BID Qty: 0 0RF oxycodone 5 mg Tablet 2.5 - 5 mg PO Q4H PRN PRN (Reason: Pain Score 4-10) Qty: 0 0RF enoxaparin 40 mg/0.4 mL Syringe 40 mg subcut DAILY Qty: 0 0RF cefdinir 300 mg capsule 300 mg PO BID 4 Days Qty: 8 0RF Continued amlodipine 5 MG tablet 10 mg PO DAILY hydralazine 100 MG tablet 25 mg PO TID lisinopril 40 MG tablet 40 mg PO DAILY aspirin 81 mg Tablet 81 mg PO DAILY glimepiride 1 mg tablet 0.5 mg PO BID atorvastatin 80 mg tablet 80 mg PO QHS Discontinued chlorthalidone 25 MG tablet 25 mg PO QHS Referrals / Follow Up: Jose Clarke DO [Primary Care Provider] - Aniket Costa MD [Med Staff - Active Staff] - Within 2 Weeks Jaziel Forde DO [Med Staff - Active Staff] - 09/15/22 Disposition Disposition (needs filled in before D/C Order can be placed): Jail Facility
--- NOTE | 2022-09-01 14:26 | PCM.DC.SUM ---
Providers Date of Admission: 08/28/22 Date of Discharge: 09/01/22 Primary Care Physician: Dr. 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 Reason For Visit: L HIP FRACTURE, FALL Diagnosis Discharge Diagnosis (1) Bladder neck contracture: Status: Acute Code(s): N32.0 - Bladder-neck obstruction (2) Closed fracture of left hip: Status: Acute Code(s): S72.002A - Fracture of unspecified part of neck of left femur, initial encounter for closed fracture Medications at Discharge Home Medications amlodipine 5 mg tablet 10 mg PO DAILY Blood Pressure 12/16/16 hydralazine 100 mg tablet 25 mg PO TID BP 12/16/16 lisinopril 40 mg tablet 40 mg PO DAILY BP 06/13/20 aspirin 81 mg tablet 81 mg PO DAILY Heart 04/23/21 glimepiride 1 mg tablet 0.5 mg PO BID Diabetes 04/23/21 atorvastatin 80 mg tablet 80 mg PO QHS HYPERLIPIDEMIA 08/28/22 cefdinir 300 mg capsule 300 mg PO BID 4 days #8 caps 09/01/22 enoxaparin 40 mg/0.4 mL subcutaneous syringe 40 mg (0.4 mL) subcut DAILY #0 mL 09/01/22 oxycodone 5 mg tablet 2.5 - 5 mg PO Q4H PRN PRN Pain Score 4-10 #0 tabs 09/01/22 sennosides 8.6 mg-docusate sodium 50 mg tablet (Stool Softener-Stimulant Laxative) 2 tab PO BID #0 tabs 09/01/22 Hospital Course Operations total hip replacement (Left hip hemiarthroplasty on 08/29/2022) and - (Cystoscopy, dilatation of bladder neck contracture, ochoa catheter placement) Procedures - Summary of Care Provided Minutes Spent on Discharge: 40 Hospital Course: 82-year-old with past medical history of CAD status post stent, dilated cardiomyopathy, hypertension, CKD stage IIIb who comes in after tripping over a cord cover in the gym and falling on his left hip. Patient sustained an acute mildly displaced femoral neck fracture. Patient was admitted to the [facility] floor and his pain was controlled. Orthopedic surgery was consulted from the ED. He underwent left hip hemiarthroplasty on 08/29/2022. In the immediate postop period, patient went into acute urinary retention. Attempts at passing Ochoa catheter was no successful. Urology was consulted. Patient went for cystoscopy emergently. He was found to have severe bladder neck contracture as well as a false passage. Ochoa catheter was placed. There were no acute events in the postop period. He was started on IV ceftriaxone. Patient was seen by PT and OT and skilled for discharge to half-way facility. Patient was discharged with Ochoa catheter in place. He will follow-up with urology in 2 weeks. He was discharged on 4 more days of cefdinir to complete a week of antibiotics. Physical Exam Narrative Physical exam: General: Alert, Oriented x3, Cooperative, No apparent distress HEENT: Atraumatic Oral: Moist Mucosa Neck: Supple Lungs: Clear to auscultation Cardiovascular: HS I+II, regular, no murmurs Abdomen: Bowel Sounds Present, Soft, Non Tender, Ochoa catheter draining dark brown urine, clearing up Extremities: Scar and? ice pack over the left hip Skin: No rashes, No breakdown Neurological: Grossly intact Psych/Mental Status: Appropriate Weight / BMI Weight Weight: 81.703 kg Body Mass Index (BMI) 23.7 ABG / Lab / Microbiology Data Result Diagrams: 09/01/22 06:25 09/01/22 06:25 Laboratory: Laboratory Results - last 24 hr 08/31/22 16:20: POC Glucose 154 H 08/31/22 22:20: POC Glucose 225 H 09/01/22 06:08: POC Glucose 130 H 09/01/22 06:25: WBC 12.0 H, RBC 3.09 L, Hgb 9.8 L, Hct 28.6 L, MCV 92.6, MCH 31.7, MCHC 34.3, RDW Std Deviation 43.7, RDW Coeff of Facundo 12.9, Plt Count 268, MPV 9.7, Immature Gran % (Auto) 0.500, Neut % (Auto) 69.9, Lymph % (Auto) 12.3 L, [place] % (Auto) 13.1 H, Eos % (Auto) 3.3, Baso % (Auto) 0.9, Absolute Neuts (auto) 8.4 H, Absolute Lymphs (auto) 1.47, Nucleated RBC % 0, Differential Comment SCANNED, Diff Path Review February09/01/22 06:25: Sodium 142, Potassium 3.3 L, Chloride 110 H, Carbon Dioxide 29.0, Anion Gap 3 L, BUN 26 H, Creatinine 1.30, Estim Creat Clear Calc 48.91, Est GFR (MDRD) Af Amer 68, Est GFR (MDRD) Non-Af 56 L, BUN/Creatinine Ratio 20.0, Glucose 133 H, Calcium 8.2 L, Total Bilirubin 0.70, AST 22, ALT 10 L, Alkaline Phosphatase 62, Total Protein 5.4 L, Albumin 2.2 L, Globulin 3.2, Albumin/Globulin Ratio 0.7 L Microbiology: Microbiology 08/30/22 17:25 Urine Catheter - Ochoa Urine Culture - Final Culture exhibits no growth. D/C Instructions Discharge Diet: Low fat / Low cholesterol and 2000 mg Sodium Diet Discharge Activity: Return to Normal Activity Meaningful Use Info Meaningful Use Diagnoses (Choose all that apply): None applicable Discharge Plan Admission Admit Date/Time: 08/28/22 18:51 Primary Reason for Your Visit: Acute left hip fracture Attending Provider: Rachele Wilson Primary Care Provider: Jose Clarke Consulting Providers: Jaziel Forde ; Suma Nicolas ; Aniket Costa ; Janiya Robert Instructions Additional Instructions / Restrictions: Left Hip: Maintain surgical dressing x7 days, then okay to leave open to air. Okay to shower with dressing on on postoperative day #4. Weightbearing as tolerated left lower extremity. Posterior hip precautions. Discharge Orders/Prescriptions Prescriptions: New sennosides-docusate sodium [Stool Softener-Stimulant Laxat] 8.6-50 mg Tablet 2 tab PO BID Qty: 0 0RF oxycodone 5 mg Tablet 2.5 - 5 mg PO Q4H PRN PRN (Reason: Pain Score 4-10) Qty: 0 0RF enoxaparin 40 mg/0.4 mL Syringe 40 mg subcut DAILY Qty: 0 0RF cefdinir 300 mg capsule 300 mg PO BID 4 Days Qty: 8 0RF Continued amlodipine 5 MG tablet 10 mg PO DAILY hydralazine 100 MG tablet 25 mg PO TID lisinopril 40 MG tablet 40 mg PO DAILY aspirin 81 mg Tablet 81 mg PO DAILY glimepiride 1 mg tablet 0.5 mg PO BID atorvastatin 80 mg tablet 80 mg PO QHS Discontinued chlorthalidone 25 MG tablet 25 mg PO QHS Referrals / Follow Up: Jose Clarke DO [Primary Care Provider] - Aniket Costa MD [Med Staff - Active Staff] - Within 2 Weeks Jaziel Fored DO [Med Staff - Active Staff] - 09/15/22 Disposition Disposition (needs filled in before D/C Order can be placed): Shelter Facility Charges/Coding Visit Charges Inpatient E&M: 09874 Disch Hosp
--- NOTE | 2022-09-01 14:37 | PHA.DC.MR ---
Pharmacy Service has performed discharge medication reconciliation for this patient. The patient's discharge medication list was reviewed for discrepancies and discrepancies were resolved. Home Medications amlodipine 5 mg tablet 10 mg PO DAILY Blood Pressure 12/16/16 hydralazine 100 mg tablet 25 mg PO TID BP 12/16/16 lisinopril 40 mg tablet 40 mg PO DAILY BP 06/13/20 aspirin 81 mg tablet 81 mg PO DAILY Heart 04/23/21 glimepiride 1 mg tablet 0.5 mg PO BID Diabetes 04/23/21 atorvastatin 80 mg tablet 80 mg PO QHS HYPERLIPIDEMIA 08/28/22 cefdinir 300 mg capsule 300 mg PO BID 4 days #8 caps 09/01/22 enoxaparin 40 mg/0.4 mL subcutaneous syringe 40 mg (0.4 mL) subcut DAILY #0 mL 09/01/22 oxycodone 5 mg tablet 2.5 - 5 mg PO Q4H PRN PRN Pain Score 4-10 #0 tabs 09/01/22 sennosides 8.6 mg-docusate sodium 50 mg tablet (Stool Softener-Stimulant Laxative) 2 tab PO BID #0 tabs 09/01/22
--- NOTE | 2022-09-01 15:21 | CASEMGMT ---
Social Work ? PALLAVI notified pt and pt daughter, Paz, of discharge to [facility] today. SW faxed all discharge orders to TCU. SW made copies of discharge orders and placed on pt chart. Sent original orders in envelope with pt upon discharge.?? Disposition: TCU, skilled level of care? SHANTEL Minor?
[2022-09-01 16:56] LABS: Bedside Glucose 171 mg/dL (74-106)
--- NOTE | 2022-09-01 17:03 | NURSING ---
REPORT CALLED TO TCU
[2022-09-01 21:06] LABS: Bedside Glucose 266 mg/dL (74-106)
[2022-09-02 09:42] LABS: Pathologist Review Reviewed
== END 2022-09-01 17:40 | DRG 522 ==
LOC: ED 18:45 → MS3 19:04
PROVIDERS: Anesthesiology; Internal Medicine; Student in an Organized Health Care Education/Training Program; Urology; Admitting Provider Family Medicine; Emergency Provider Emergency Medicine; PCP Family Medicine; Visit Provider Internal Medicine
PROC: 0SRS0J9 Replacement of Left Hip Joint, Femoral Surface with Synthetic Substitute, Cemented, Open Approach (ICD-10-PCS; CPT 27125; principal; 2022-08-29 07:30)
PROC: 0TJB8ZZ Inspection of Bladder, Via Natural or Artificial Opening Endoscopic (ICD-10-PCS; CPT 52000; principal; 2022-08-30 00:15)
DX: S72.012A Unspecified intracapsular fracture of left femur, initial encounter for closed fracture (principal); I42.0 Dilated cardiomyopathy; N36.5 Urethral false passage; E11.22 Type 2 diabetes mellitus with diabetic chronic kidney disease; N18.32 Chronic kidney disease, stage 3b; Z79.4 Long term (current) use of insulin; I12.9 Hypertensive chronic kidney disease with stage 1 through stage 4 chronic kidney disease, or unspecified chronic kidney disease; I25.10 Atherosclerotic heart disease of native coronary artery without angina pectoris; E78.5 Hyperlipidemia, unspecified; I25.2 Old myocardial infarction; W18.09XA Striking against other object with subsequent fall, initial encounter; N32.89 Other specified disorders of bladder; Y92.39 Other specified sports and athletic area as the place of occurrence of the external cause; Y93.01 Activity, walking, marching and hiking; N32.0 Bladder-neck obstruction; R33.9 Retention of urine, unspecified; Z20.822 Contact with and (suspected) exposure to COVID-19; Z79.82 Long term (current) use of aspirin; Z79.84 Long term (current) use of oral hypoglycemic drugs; Z79.899 Other long term (current) drug therapy; Z90.79 Acquired absence of other genital organ(s); Z95.0 Presence of cardiac pacemaker; Z96.642 Presence of left artificial hip joint; Z95.5 Presence of coronary angioplasty implant and graft
CPT/HCPCS: 36415; 71045; 72170; 73502; 73552; 80048; 80053; 82962; 83036; 85025; 85027; 85610; 85730; 86850; 86900; 86901; 87086; 87426; 88307; 88311; 93005; 97110; 97116; 97162; 97166; 97530; 97535; 99251; 99284; C1776; J7030; J7120; A4216; C1769; G0463; J2405

== ENCOUNTER 2022-09-01 17:45 | Inpatient (IN) | payer MEDICARE, SELFPAY ==
[2022-09-01 17:45] VITALS: BP 156/69; PULSE 88; RESP 16; TEMP 36.9; O2SAT 94
[2022-09-01 20:17] VITALS: PULSE 87; RESP 16; O2SAT 92
--- NOTE | 2022-09-01 20:23 | HP.PCM_ITS ---
HPI - General General Date of Admission: 09/01/22 Date of Service: 09/02/22 Chief Complaint: Here for rehab. HPI Narrative 08/28/2022 BRIAN OTERO, is a 82 Male who presents to [facility] with left hip pain.. 08/28/2022 EKG atria sensed ventricular paced rhythm. Tripped, fell, injured left hip. X-ray showed left hip fracture, morphine IV given for pain. 08/28/2022 Admit to Hospital. Prepare for surgery. 08/29/2022 Dr. Forde performed left hip hemiarthroplasty. 08/29/2022 Feeling fair. 08/30/2022 Dr. Costa performed cystoscopy dilation of bladder neck contracture placement of ochoa catheter. 08/31/2022 Pain fairly controlled with Tylenol, oxycodone. Discharge with ochoa catheter in place. 09/01/2022 Admit to TCU with debility, here for rehabilitation, strengthening, prior to discharge home with family. FORMERLY [facility], [facility]1983 Medical History (Updated 09/01/22 @ 20:[address] Marty Smallwood MD) Benign prostatic hyperplasia Coronary artery disease Diabetes mellitus, type 2 HLD (hyperlipidemia) Hypertension Pacemaker Stage 3b chronic kidney disease Home Medications amlodipine 5 mg tablet 10 mg PO DAILY Blood Pressure 12/16/16 [History Last Taken 08/27/22 18:00] hydralazine 100 mg tablet 25 mg PO TID BP 12/16/16 [History Last Taken 08/28/22 07:00] lisinopril 40 mg tablet 40 mg PO DAILY BP 06/13/20 [History Last Taken 08/28/22 07:00] aspirin 81 mg tablet 81 mg PO DAILY Heart 04/23/21 [History Last Taken 08/28/22 07:00] glimepiride 1 mg tablet 0.5 mg PO BID Diabetes 04/23/21 [History Last Taken 08/28/22 07:00] atorvastatin 80 mg tablet 80 mg PO QHS HYPERLIPIDEMIA 08/28/22 [History Last Taken 08/27/22 18:00] cefdinir 300 mg capsule 300 mg PO BID antibiotic 09/01/22 [History Last Taken Unknown] enoxaparin 40 mg/0.4 mL subcutaneous syringe 40 mg subcut DAILY blood thinner 09/01/22 [History Last Taken Unknown] oxycodone 5 mg tablet 2.5 - 5 mg PO Q4H PRN PRN Pain Score 4-10 #0 tabs 09/01/22 [Rx Last Taken Unknown] sennosides 8.6 mg-docusate sodium 50 mg tablet (Stool Softener-Stimulant Laxa tive) 2 tab PO BID bowels 09/01/22 [History Last Taken Unknown] Allergy/AdvReac Type Severity Reaction Status Date / Time No Known Allergies Allergy Verified 08/28/22 20:33 Family History Mother Colon cancer Diagnosed age 83, passed age 84. Father Heart disease Hypertension Myocardial infarction CAD (coronary artery disease) Surgical History (Updated 09/01/22 @ 20:[address] Marty Smallwood MD) H/O cardiac catheterization History of coronary artery stent placement History of left hip hemiarthroplasty S/P TURP Status post placement of cardiac pacemaker Social History household members: family Smoking Status: Never smoker alcohol intake: never substance use type: does not use ROS Constitutional Constitutional: Denies chills, fever(s) or weight gain ENT HEENT: Denies headache(s), nasal congestion or nasal discharge Cardiovascular Cardiovascular: Denies chest pain or palpitations Respiratory/Chest Respiratory/Chest: Denies cough, excessive phlegm production or shortness of breath with exertion Gastrointestinal Gastrointestinal: Denies abdominal pain, nausea or vomiting Genitourinary Genitourinary: Denies dysuria Musculoskeletal Musculoskeletal: Denies joint pain or joint swelling Integumentary Integumentary: Denies rash or wounds Neurologic Neurologic: Denies focal weakness, numbness or tingling Psychiatric Psychiatric: Denies anxiety, auditory hallucinations, depression, homicidal ideation or suicidal ideation Vital Signs Vital Signs Vital Signs: 09/01/22 17:45 Temperature 98.5 F Temperature Source Oral Pulse Rate 88 Respiratory Rate 16 Blood Pressure 156/69 H Blood Pressure Mean 98 Blood Pressure Source Monitor Blood Pressure Position Semi-Fowlers Blood Pressure Location Left Arm Pulse Ox 94 Oxygen Delivery Method Room Air Physical Exam Const alert General Appearance: cooperative HEENT normocephalic Eyes PERRL and EOMs intact bilaterally Neck supple, no JVD and no carotid bruits Resp normal respiratory effort, normal air movement and clear to auscultation bilaterally Cardio regular rate and regular rhythm GI normal to inspection, nondistended, normoactive bowel sounds, non-tender and non-distended Extremity normal capillary refill General Extremity: Negative for edema Skin no rashes or lesions noted General Skin Exam: no breakdown Psych affect normal Appearance: appropriate Results Lab / Micro Data Result Diagrams: 09/02/22 05:36 09/02/22 05:36 Assessment & Plan Assessment/Plan (1) Debility: (2) Closed fracture of left hip: (3) Bladder neck contracture: (4) HTN (hypertension): (5) Hyperlipidemia: (6) Diabetes mellitus: (7) Coronary artery disease: (8) Chronic kidney disease, stage 3b: PLAN: Plan 82 year old male with below past medical history hospitalized for left hip fracture, underwent left hip hemiarthroplasty 08/29/2022 Dr. Forde, complicated by bladder neck contracture underwent cystoscopy, dilatation, ochoa catheter placement 08/30/2022 Dr. Costa, admitted to TCU with debility, here for rehabilitation, strengthening, prior to discharge home with family. * Debility - PT/OT. * Pain - Tylenol 1000mg q8h, Oxycodone 2.5mg - 5mg q4h prn. * Bowel - Miralax 17gm daily, senna/colace 2 tablets bid, MOM 30ml po daily prn. * Adult immunization - Administer pneumonia vaccine, covid19 vaccine, flu vaccine as appropriate. * DVT prophylaxis - Lovenox 40mg sc daily. * Hypertension - Lisinopril 40mg daily, Hydralazine 25mg tid, Amlodipine 10mg d aily. * Coronary artery disease - Lisinopril 40mg daily, Aspirin 81mg daily. * Hyperlipidemia - Atorvastatin 80mg qhs. * ID - Cefdinir 300mg bid thru 09/06/2022. * Diabetes Mellitus II - Glimepiride 0.5mg bid. * Hypokalemia - K 3.4, Rx KCL ER 20meq daily, BMP in 2 days.
--- NOTE | 2022-09-01 20:30 | NURSING ---
Addendum entered by Crispin Lucero 09/02/22 01:27: continued: patient declines flu and pneumococcal vaccines stating I don't need any vaccines right now, I always stay up to date with them and I have all of the vaccines that I need Original Note: Patient declines
--- NOTE | 2022-09-01 20:38 | NURSING ---
A&OX2, Discussed code status patient states wants to be full code.
[2022-09-01] MEDS: oxyCODONE 5 MG Tablet PO (21:42)
[2022-09-01] MEDS: Acetaminophen 500 MG Tablet 1000 MG PO (21:42)
[2022-09-01 21:43] VITALS: BP 131/54; PULSE 85
[2022-09-01] MEDS: hydrALAZINE 25 MG Tablet PO (21:43)
[2022-09-01] MEDS: Atorvastatin Calcium 80 MG Tablet PO (21:43)
[2022-09-02 05:57] LABS: Absolute Lymphocyte Count 1.16 X10^3/uL (0.83-4.51); Absolute Neutrophil Count 6.9 X10^3/uL (2.0-7.7); Eosinophil# 0.49 X10^3/uL; Eosinophils% 4.8 % (0-5); Hematocrit 29.7 % (40-54); Hemoglobin 9.5 g/dL (13.0-16.5); Lymphocyte # 1.16 X10^3/ul (0.83-4.51); Lymphocyte % 11.4 % (19-41); Mean Corpuscular Volume 93.7 fL (80-94); Mean Platelet Vol. 9.8 fl (6.2-12.0); Monocyte# 1.44 X10^3/uL; Monocyte% 14.1 % (0-10); NRBC Flagged by Analyzer 0 % (0-5); Neutrophil # 6.93 X10^3/uL (2.7-7.7); Platelet Count 330 K/mm3 (150-450); RBC Distribution Width CV 12.7 % (11.6-14.6); Red Blood Count 3.17 M/mm3 (4.6-6.2); White Blood Count 10.2 K/mm3 (4.4-11.0)
[2022-09-02 06:40] LABS: Bedside Glucose 157 mg/dL (74-106)
[2022-09-02 06:45] LABS: Anion Gap 6 (5-15); BUN 26 mg/dL (7-18); BUN/Creat Ratio 19.4 RATIO (10-20); Calcium,Total 8.3 mg/dL (8.5-10.1); Chloride 107 mmol/L (98-107); Creatinine, Serum 1.34 mg/dL (0.70-1.30); EST Glomerular Filtration Rate 54 mL/min (>60); Est Glom Filt Rate - Afr Amer 66 mL/min (>60); Estimated Creatinine Clearance 47.45 ml/min; Glucose 137 mg/dL (74-106); Potassium 3.4 mmol/L (3.5-5.1); Sodium Level 141 mmol/L (136-145)
[2022-09-02] MEDS: 0.9% Saline Lock 10 ML Syringe IV (06:50)
[2022-09-02] MEDS: Enoxaparin 40 MG/0.4 ML Syringe SC (06:56)
[2022-09-02] MEDS: Acetaminophen 500 MG Tablet 1000 MG PO ×3 (06:56→21:25)
[2022-09-02 06:57] VITALS: BP 143/62; PULSE 79
[2022-09-02] MEDS: Lisinopril 40 MG Tablet PO (06:57)
[2022-09-02] MEDS: hydrALAZINE 25 MG Tablet PO ×3 (06:57→21:24)
[2022-09-02] MEDS: amLODIPine 10 MG Tablet PO (06:57)
[2022-09-02] MEDS: Cefdinir 300 MG Capsule PO ×2 (06:57→18:28)
[2022-09-02] MEDS: Potassium Chloride Oral Tablet 20 MEQ PO (08:19)
[2022-09-02] MEDS: Aspirin 81 MG TAB.CHEW PO (08:19)
[2022-09-02] MEDS: Glimepiride 1 MG Tablet 0.5 MG PO ×2 (08:19→19:26)
[2022-09-02] MEDS: oxyCODONE 5 MG Tablet PO ×2 (10:23→14:43)
[2022-09-02] MEDS: Tuberculin,Purif.prot.deriv. 50 TU/ML Vial 0.1 ML ID (10:23)
--- NOTE | 2022-09-02 13:02 | NURSING ---
Carbonation Equipment Tender Note; Activity Asset: Complete
[2022-09-02 14:08] VITALS: BP 143/62; PULSE 82
[2022-09-02 15:20] VITALS: BP 127/67; PULSE 88; RESP 16; TEMP 36.6; O2SAT 93
--- NOTE | 2022-09-02 16:17 | PCM.PN.DRR ---
TCU RX Drug Regimen Review Subjective: 82 YOM admitted to [facility] d/t fall. Patient underwent hemiarthroplasty 08/29/22, and subsequent cytoscopy on 08/30/22. Admitted to TCU on 09/01/22 for strengthening and rehabilitation prior to discharge home with family. Objective: Allergies No Known Allergies Allergy (Verified 08/28/22 20:33) Current Medications Generic Name Dose Route Start Last Admin Trade Name Freq PRN Reason Stop Dose Admin Acetaminophen 1,000 mg 09/01/22 22:00 09/02/22 14:07 Acetaminophen 500 Mg Tablet PO 1,000 mg Q8 ARNOLDO Administration Amlodipine Besylate 10 mg 09/02/22 06:00 09/02/22 06:57 Amlodipine 10 Mg Tablet PO 10 mg DAILY ARNOLDO Administration Aspirin 81 mg 09/02/22 08:00 09/02/22 08:19 Aspirin 81 Mg Tab.Chew PO 81 mg BREAKFAST ARNOLDO Administration Atorvastatin Calcium 80 mg 09/01/22 22:00 09/01/22 21:43 Atorvastatin Calcium 80 Mg Tablet PO 80 mg QHS ARNOLDO Administration Cefdinir 300 mg 09/02/22 06:00 09/02/22 06:57 Cefdinir 300 Mg Capsule PO 09/06/22 06:01 300 mg BID ARNOLDO Administration Enoxaparin Sodium 40 mg 09/02/22 06:00 09/02/22 06:56 Enoxaparin 40 Mg/0.4 Ml Syringe SC 40 mg DAILY ARNOLDO Administration Glimepiride 0.5 mg 09/02/22 08:00 09/02/22 08:19 Glimepiride 1 Mg Tablet PO 0.5 mg BID@0800,2000 ARNOLDO Administration Hydralazine HCl 25 mg 09/01/22 22:00 09/02/22 14:08 Hydralazine 25 Mg Tablet PO 25 mg TID ARNOLDO Administration Lisinopril 40 mg 09/02/22 06:00 09/02/22 06:57 Lisinopril 40 Mg Tablet PO 40 mg DAILY ARNOLDO Administration Magnesium Hydroxide 30 ml 09/01/22 20:35 Magnesium Hydroxide 30 Ml Udc PO DAILY PRN Constipation Oxycodone HCl 2.5 - 5 mg 09/01/22 18:42 09/02/22 14:43 Oxycodone 5 Mg Tablet PO 5 mg Q4H PRN PRN Administration Pain Score 4-10 Polyethylene Glycol 17 gm 09/02/22 06:00 09/02/22 07:00 Polyethylene Glycol 3350 17 Gm Packet PO Not Given DAILY ARNOLDO Potassium Chloride 20 meq 09/02/22 08:00 09/02/22 08:19 Potassium Chloride Oral Tablet 20 Meq PO 20 meq DAILYCM ARNOLDO Administration Senna/Docusate Sodium 2 tablet 09/02/22 06:00 09/02/22 07:00 Senna/Docusate Sodium 1 Tablet PO Not Given BID ARNOLDO Sodium Chloride 10 - 40 ml 09/01/22 20:35 09/02/22 06:50 0.9% Saline Lock 10 Ml Syringe IV 10 ml UD PRN Administration SALINE FLUSH Tuberculin PPD 0.1 ml 09/09/22 10:00 Tuberculin,Purif.Prot.Deriv. 50 Tu/Ml Vial ID 09/09/22 10:01 X1 ONE Problem List (Last Reviewed 09/01/22 @ 20:[address] Marty Smallwood MD) Chronic kidney disease, stage 3b (Acute) Coronary artery disease (Acute) Diabetes mellitus (Acute) Hyperlipidemia (Acute) Debility (Acute) Bladder neck contracture (Acute) HTN (hypertension) (Chronic) Closed fracture of left hip (Acute) Vital Signs Temp Pulse Resp BP Pulse Ox O2 Del Method 97.9 F 88 16 127/67 H 93 Room Air 09/02/22 15:20 09/02/22 15:20 09/02/22 15:20 09/02/22 15:20 09/02/22 15:20 09/02/22 15:20 Oxygen Delivery Method Room Air Weight: 81.675 kg Sodium 141 mmol/L (136-145) 09/02/22 05:36 Potassium 3.4 mmol/L (3.5-5.1) L 09/02/22 05:36 Chloride 107 mmol/L (98-107) 09/02/22 05:36 Carbon Dioxide 28.0 mmol/L (21.0-32.0) 09/02/22 05:36 Anion Gap 6 (5-15) 09/02/22 05:36 BUN 26 mg/dL (7-18) H 09/02/22 05:36 Creatinine 1.34 mg/dL (0.70-1.30) H 09/02/22 05:36 Est GFR (MDRD) Af Amer 66 mL/min (>60) 09/02/22 05:36 Est GFR (MDRD) Non-Af 54 mL/min (>60) L 09/02/22 05:36 BUN/Creatinine Ratio 19.4 RATIO (10-20) 09/02/22 05:36 Glucose 137 mg/dL (74-106) H 09/02/22 05:36 Assessment/Plan: 1. Pain: Tylenol 1000mg PO Q8h, Oxycodone 2.5-5mg PO Q4h PRN Pain 4-10. Please continue to monitor for increased/decreased S/S pain, PRN medication usage, liver function with scheduled Tylenol use, oversedation with narcotic medication usage. - To date, the patient has utilized 3 doses of oxycodone in the past 24hrs. The patient is rating pain 5-8/10 pre-medication and 0/10 post-medication. It appears that the patient's pain is under control at this time, continue to monitor. 2. Post-op surgical infection prophylaxis: Cefdinir 300mg PO BID thru 09/06/22. Please continue to monitor culture data (NGTD per EMR review), upset stomach, diarrhea, development of infectious symptoms. 3. CAD/ HTN: Norvasc 10mg PO Daily, Aspirin 81mg PO Daily, Hydralazine 25mg PO TID, Lisinopril 40mg PO Daily. Please continue to monitor BP (range 127-156/54-69), S/S bleeding/bruising, renal function (currently stable), and potassium levels (last level 3.4 on 09/02). 4. HLD: Lipitor 80mg PO QHS. Please continue to monitor lipid panel annually or sooner if clinically indicated - The patient does not have a lipid panel documented in EMR per chart review. Please consider obtaining a lipid panel if clinically indicated, thank you. 5. Type II Diabetes: Glimepiride 0.5mg PO BID. Please continue to monitor for hypoglycemia, blood glucose levels, A1c every 3 moths as clinically indicated (last level 7% 08/2022) 6. Hypokalemia: Potassium Chloride 20mEq PO Daily. Please continue to monitor potassium levels (last 3.4 on 09/02, rechecking BMP in 2 days per chart review), S/S GI upset. 7. DVT Prophylaxis: Lovenox 40mg SC Daily. Please continue to monitor for S/S bleeding/bruising, H/H (last 08/2022), renal function (CrCl 47mL/min on 09/02). 8. Bowel: Miralax 17g PO Daily, Senna/Docusate 2 tab PO BID, MOM 30mL PO Daily PRN. Please continue to monitor for constipation and/or diarrhea. - The patient has not had a documented bowel movement since admission yesterday. Please continue to monitor patient, and consider administration of PRN medication if the patient has not produced a bowel movement by that time. The patient is high risk for constipation given PRN narcotic usage. Assessment/Plan for indications treated with psychotropic medications: - The patient is not currently on any psychotropic medications at time of admission medication review. Medical chart and medication regimen reviewed. The following medication irregularities or issues were identified: 1. HLD: Lipitor 80mg PO QHS. Please continue to monitor lipid panel annually or sooner if clinically indicated - The patient does not have a lipid panel documented in EMR per chart review. Please consider obtaining a lipid panel if clinically indicated, thank you. Date of Note:: 09/02/22
[2022-09-02 19:55] LABS: Bedside Glucose 236 mg/dL (74-106)
[2022-09-02 20:00] VITALS: PULSE 84; RESP 14; O2SAT 97
[2022-09-02 21:24] VITALS: BP 136/60; PULSE 82
[2022-09-02] MEDS: Atorvastatin Calcium 80 MG Tablet PO (21:25)
[2022-09-03 05:10] VITALS: BP 122/67; PULSE 73
[2022-09-03] MEDS: amLODIPine 10 MG Tablet PO (05:10)
[2022-09-03] MEDS: Cefdinir 300 MG Capsule PO ×2 (05:10→17:27)
[2022-09-03] MEDS: Enoxaparin 40 MG/0.4 ML Syringe SC (05:10)
[2022-09-03] MEDS: hydrALAZINE 25 MG Tablet PO ×3 (05:10→21:24)
[2022-09-03] MEDS: Lisinopril 40 MG Tablet PO (05:10)
[2022-09-03] MEDS: Acetaminophen 500 MG Tablet 1000 MG PO ×3 (05:10→21:27)
[2022-09-03 06:40] LABS: Bedside Glucose 144 mg/dL (74-106)
[2022-09-03] MEDS: Glimepiride 1 MG Tablet 0.5 MG PO ×2 (07:48→21:21)
[2022-09-03] MEDS: Aspirin 81 MG TAB.CHEW PO (07:48)
[2022-09-03] MEDS: Potassium Chloride Oral Tablet 20 MEQ PO (07:48)
[2022-09-03] MEDS: oxyCODONE 5 MG Tablet PO ×2 (07:51→13:02)
--- NOTE | 2022-09-03 10:26 | CASEMGMT ---
Social Work Met with patient to complete initial assessment. Introduced self and role. Discussed code status and MOLST form. Pt confirms full code. MOLST completed, placed in folder. Pt agreed to ask dtr to bring in copies of advanced directives. Per pt, dtr is POA. Educated to [facility] insurance with [employer] 09/13, EDC 09/16. Pt agrees he will be ready to DC home with family prior to Thanksgiving. SW to coordinate continued therapy or DME needs at DC. SW to continue to follow for DC planning. Jessica Dejesus ,SWITCH CLEANER ARCHITECTURAL ENGINEERING TEACHER
[2022-09-03 13:03] VITALS: BP 141/56; PULSE 79
--- NOTE | 2022-09-03 14:40 | CHAPLAIN ---
Type of Pastoral Visit _x__ Initial Visit ___ Follow-up Visit ___ On-call Visit ___ General Patient Visit ___ Spiritual Assessment ___ Family Conference ___ Bereavement ___ Rapid Response ___ Code Blue ___ Other (describe below) Pastoral Care Referral From _x__ Patient ___ Family ___ Nurse ___ Physician ___ Client Application Support Engineer ___ Wound Care Coordinator ___ Other (describe below) Sacrament/Intervention _x__ Active listening ___ Anointing ___ Evangelical ___ Bereavement ___ Communion ___ Sandra exploration ___ _x__ Life review _x__ Prayer ___ Reconciliation ___ Sacrament of Sick _x__ Supportive presence ___ Wedding ___ Other (describe below) Pastoral Comments patient is welcoming and quite talkative; pt gives some life review; pt shows humor and being ornery in his words; pt states that he is an avid golfer and wants to get well and be active that way again; pt states that keeps my islam to myself, but I believe; pt requests a prayer for his recovery
[2022-09-03 14:46] VITALS: BP 139/66; PULSE 80; RESP 16; TEMP 36.8; O2SAT 93
[2022-09-03 21:24] VITALS: BP 131/60; PULSE 77
[2022-09-03] MEDS: Atorvastatin Calcium 80 MG Tablet PO (21:26)
[2022-09-03] MEDS: MELATONIN 10 MG TABLET PO (21:27)
[2022-09-04] MEDS: Cefdinir 300 MG Capsule PO ×2 (05:43→17:29)
[2022-09-04] MEDS: Acetaminophen 500 MG Tablet 1000 MG PO ×3 (05:43→21:46)
[2022-09-04] MEDS: Enoxaparin 40 MG/0.4 ML Syringe SC (05:43)
[2022-09-04] MEDS: Lisinopril 40 MG Tablet PO (05:43)
[2022-09-04] MEDS: amLODIPine 10 MG Tablet PO (05:43)
[2022-09-04 05:44] VITALS: BP 140/65; PULSE 69
[2022-09-04] MEDS: hydrALAZINE 25 MG Tablet PO ×3 (05:44→21:47)
[2022-09-04 06:55] LABS: Bedside Glucose 134 mg/dL (74-106)
[2022-09-04 07:29] LABS: Anion Gap 5 (5-15); BUN 27 mg/dL (7-18); BUN/Creat Ratio 21.6 RATIO (10-20); Calcium,Total 8.4 mg/dL (8.5-10.1); Chloride 108 mmol/L (98-107); Creatinine, Serum 1.25 mg/dL (0.70-1.30); EST Glomerular Filtration Rate 59 mL/min (>60); Est Glom Filt Rate - Afr Amer 71 mL/min (>60); Estimated Creatinine Clearance 50.87 ml/min; Glucose 141 mg/dL (74-106); Potassium 3.8 mmol/L (3.5-5.1); Sodium Level 140 mmol/L (136-145)
[2022-09-04] MEDS: Glimepiride 1 MG Tablet 0.5 MG PO ×2 (08:28→21:46)
[2022-09-04] MEDS: Aspirin 81 MG TAB.CHEW PO (08:28)
[2022-09-04] MEDS: Potassium Chloride Oral Tablet 20 MEQ PO (08:28)
--- NOTE | 2022-09-04 12:51 | NURSING ---
Surgical dressing to left hip was completely saturated. Replaced with ABD.
[2022-09-04 13:55] VITALS: BP 142/89; PULSE 79
[2022-09-04 15:12] VITALS: PULSE 73; RESP 16; TEMP 36.6; O2SAT 94
[2022-09-04 21:30] VITALS: PULSE 72; RESP 16; O2SAT 98
[2022-09-04] MEDS: MELATONIN 10 MG TABLET PO (21:46)
[2022-09-04 21:47] VITALS: BP 128/54; PULSE 72
[2022-09-04] MEDS: Atorvastatin Calcium 80 MG Tablet PO (21:47)
[2022-09-05] MEDS: Enoxaparin 40 MG/0.4 ML Syringe SC (05:30)
[2022-09-05] MEDS: Cefdinir 300 MG Capsule PO ×2 (05:31→16:47)
[2022-09-05] MEDS: Senna/Docusate Sodium 1 Tablet 2 TABLET PO (05:31)
[2022-09-05] MEDS: Lisinopril 40 MG Tablet PO (05:31)
[2022-09-05] MEDS: Acetaminophen 500 MG Tablet 1000 MG PO ×3 (05:31→21:42)
[2022-09-05 05:32] VITALS: BP 141/66; PULSE 74
[2022-09-05] MEDS: hydrALAZINE 25 MG Tablet PO ×3 (05:32→21:42)
[2022-09-05] MEDS: amLODIPine 10 MG Tablet PO (05:33)
[2022-09-05 06:30] LABS: Bedside Glucose 115 mg/dL (74-106)
[2022-09-05] MEDS: Glimepiride 1 MG Tablet 0.5 MG PO ×2 (08:17→21:41)
[2022-09-05] MEDS: Potassium Chloride Oral Tablet 20 MEQ PO (08:17)
[2022-09-05] MEDS: Aspirin 81 MG TAB.CHEW PO (08:17)
[2022-09-05 13:53] VITALS: BP 144/67; PULSE 78
[2022-09-05 13:55] VITALS: BP 144/67; PULSE 78; RESP 16; TEMP 37; O2SAT 95
[2022-09-05 21:42] VITALS: BP 132/62; PULSE 76
[2022-09-05] MEDS: MELATONIN 10 MG TABLET PO (21:42)
[2022-09-05] MEDS: Atorvastatin Calcium 80 MG Tablet PO (21:42)
[2022-09-05 21:45] VITALS: PULSE 76; RESP 16; O2SAT 96
[2022-09-06 05:24] VITALS: BP 135/63; PULSE 68
[2022-09-06] MEDS: Cefdinir 300 MG Capsule PO (05:24)
[2022-09-06] MEDS: amLODIPine 10 MG Tablet PO (05:24)
[2022-09-06] MEDS: Lisinopril 40 MG Tablet PO (05:24)
[2022-09-06] MEDS: Enoxaparin 40 MG/0.4 ML Syringe SC (05:24)
[2022-09-06] MEDS: Acetaminophen 500 MG Tablet 1000 MG PO ×3 (05:24→21:30)
[2022-09-06] MEDS: hydrALAZINE 25 MG Tablet PO ×3 (05:24→21:30)
[2022-09-06 06:56] LABS: Bedside Glucose 136 mg/dL (74-106)
[2022-09-06] MEDS: Aspirin 81 MG TAB.CHEW PO (08:08)
[2022-09-06] MEDS: Glimepiride 1 MG Tablet 0.5 MG PO ×2 (08:09→21:28)
[2022-09-06] MEDS: Potassium Chloride Oral Tablet 20 MEQ PO (08:13)
[2022-09-06 13:39] VITALS: BP 135/59; PULSE 76
[2022-09-06 16:00] VITALS: BP 118/54; PULSE 77; RESP 18; TEMP 36.9; O2SAT 96
[2022-09-06 21:00] VITALS: PULSE 55; RESP 18; O2SAT 95
[2022-09-06] MEDS: Atorvastatin Calcium 80 MG Tablet PO (21:29)
[2022-09-06] MEDS: MELATONIN 10 MG TABLET PO (21:29)
[2022-09-06 21:30] VITALS: BP 130/69; PULSE 77
[2022-09-07] MEDS: oxyCODONE 5 MG Tablet PO (01:30)
[2022-09-07 06:30] VITALS: BP 140/60; PULSE 71
[2022-09-07] MEDS: Acetaminophen 500 MG Tablet 1000 MG PO ×3 (06:30→20:22)
[2022-09-07] MEDS: Lisinopril 40 MG Tablet PO (06:30)
[2022-09-07] MEDS: hydrALAZINE 25 MG Tablet PO ×3 (06:30→20:23)
[2022-09-07] MEDS: Enoxaparin 40 MG/0.4 ML Syringe SC (06:30)
[2022-09-07] MEDS: amLODIPine 10 MG Tablet PO (06:31)
[2022-09-07 06:56] LABS: Bedside Glucose 116 mg/dL (74-106)
[2022-09-07] MEDS: Aspirin 81 MG TAB.CHEW PO (07:51)
[2022-09-07] MEDS: Glimepiride 1 MG Tablet 0.5 MG PO ×2 (07:51→20:21)
[2022-09-07] MEDS: Potassium Chloride Oral Tablet 20 MEQ PO (07:51)
[2022-09-07 10:00] VITALS: PULSE 80; RESP 18; O2SAT 95
--- NOTE | 2022-09-07 11:30 | CASEMGMT ---
Social Work BIMS () and PHQ-9 (11/19) completed for MDS assessment. Jessica Dejesus MSW CHISEL GRINDER
[2022-09-07 13:25] VITALS: BP 142/61; PULSE 77; RESP 16; TEMP 37; O2SAT 96
[2022-09-07 13:26] VITALS: BP 142/61; PULSE 77
[2022-09-07] MEDS: Atorvastatin Calcium 80 MG Tablet PO (20:21)
[2022-09-07] MEDS: Hydrocortisone 2.5% Crm 1 APPLIC TOPICAL (20:22)
[2022-09-07] MEDS: MELATONIN 10 MG TABLET PO (20:22)
[2022-09-07 20:23] VITALS: BP 124/65; PULSE 74
[2022-09-08 06:16] VITALS: BP 139/62; PULSE 70
[2022-09-08] MEDS: hydrALAZINE 25 MG Tablet PO ×3 (06:16→22:08)
[2022-09-08] MEDS: amLODIPine 10 MG Tablet PO (06:17)
[2022-09-08] MEDS: Enoxaparin 40 MG/0.4 ML Syringe SC (06:17)
[2022-09-08] MEDS: Acetaminophen 500 MG Tablet 1000 MG PO ×3 (06:17→22:08)
[2022-09-08] MEDS: Lisinopril 40 MG Tablet PO (06:17)
[2022-09-08 06:55] LABS: Bedside Glucose 103 mg/dL (74-106)
[2022-09-08] MEDS: Potassium Chloride Oral Tablet 20 MEQ PO (08:00)
[2022-09-08] MEDS: Aspirin 81 MG TAB.CHEW PO (08:00)
[2022-09-08] MEDS: Glimepiride 1 MG Tablet 0.5 MG PO ×2 (08:00→17:26)
--- NOTE | 2022-09-08 11:07 | CASEMGMT ---
Social Work IDT met with patient and two dtrs via conference call for care plan meeting. Discussed patient's progress in PT/OT/SN. Educated to [facility] insurance with NRD 09/13, EDC 09/16. Pt is progressing well and offered to set DC date. Family/pt/IDT agreeable to DC 09/13 with [facility] PT/OT/SN. Offered to provide skilled HHC list of agencies with quality and resource data - family denied and elected [facility]. No DME needs. Referral made via phone to [facility] Plan: DC home with family 09/13, [facility] PT/OT/SN CHERISE Keyes
--- NOTE | 2022-09-08 11:34 | NURSING ---
Net Lead Architect Note; MDS Complete
[2022-09-08 14:48] VITALS: BP 134/54; PULSE 75
[2022-09-08] MEDS: Hydrocortisone 2.5% Crm 1 APPLIC TOPICAL ×2 (14:49→22:06)
[2022-09-08 16:00] VITALS: PULSE 75; RESP 16; TEMP 36.9; O2SAT 95
--- NOTE | 2022-09-08 19:24 | DS.PCM_ITS ---
Providers Date of Admission: 09/01/22 Primary Care Physician: Dr. Jose Clarke, DO Reason For Visit: LEFT HIP FRACTURE Diagnosis Discharge Diagnosis (1) Debility: Status: Acute Code(s): R53.81 - Other malaise (2) Closed fracture of left hip: Status: Acute Code(s): S72.002A - Fracture of unspecified part of neck of left femur, initial encounter for closed fracture (3) Bladder neck contracture: Status: Acute Code(s): N32.0 - Bladder-neck obstruction (4) HTN (hypertension): Status: Chronic Code(s): I10 - Essential (primary) hypertension (5) Hyperlipidemia: Status: Acute Code(s): E78.5 - Hyperlipidemia, unspecified (6) Diabetes mellitus: Status: Acute Code(s): E11.9 - Type 2 diabetes mellitus without complications (7) Coronary artery disease: Status: Acute Code(s): I25.10 - Atherosclerotic heart disease of [place] coronary artery without angina pectoris (8) Chronic kidney disease, stage 3b: Status: Acute Code(s): N18.32 - Chronic kidney disease, stage 3b Plan 82 year old male with below past medical history hospitalized for left hip fracture, underwent left hip hemiarthroplasty 08/29/2022 Dr. Forde, complicated by bladder neck contracture underwent cystoscopy, dilatation, ochoa catheter placement 08/30/2022 Dr. Costa, admitted to TCU with debility, here for rehabilitation, strengthening, prior to discharge home with family. * Debility - PT/OT. * Pain - Tylenol 1000mg q8h, Oxycodone 2.5mg - 5mg q4h prn. * Bowel - Miralax 17gm daily, senna/colace 2 tablets bid, MOM 30ml po daily prn. * Adult immunization - Administer pneumonia vaccine, covid19 vaccine, flu vaccine as appropriate. * DVT prophylaxis - Lovenox 40mg sc daily. * Hypertension - Lisinopril 40mg daily, Hydralazine 25mg tid, Amlodipine 10mg daily. * Coronary artery disease - Lisinopril 40mg daily, Aspirin 81mg daily. * Hyperlipidemia - Atorvastatin 80mg qhs. * ID - Cefdinir 300mg bid thru 09/06/2022. * Diabetes Mellitus II - Glimepiride 0.5mg bid. * Hypokalemia - K 3.4, Rx KCL ER 20meq daily, BMP in 2 days. Medications at Discharge Home Medications hydralazine 100 mg tablet 25 mg PO TID BP 12/16/16 lisinopril 40 mg tablet 40 mg PO DAILY BP 06/13/20 aspirin 81 mg tablet 81 mg PO DAILY Heart 04/23/21 glimepiride 1 mg tablet 0.5 mg PO BID Diabetes 04/23/21 atorvastatin 80 mg tablet 80 mg PO QHS HYPERLIPIDEMIA 08/28/22 acetaminophen 500 mg tablet 1,000 mg PO Q8 #0 tabs 09/08/22 amlodipine 10 mg tablet 10 mg PO DAILY 30 days #30 tabs 09/08/22 oxycodone 5 mg tablet 2.5 - 5 mg PO Q4H PRN PRN Pain Score 4-10 3 days #18 tabs 09/08/22 potassium chloride 20 mEq tablet,extended release(part/cryst) (Klor-Con M) 20 meq PO DAILYCM 30 days #30 tabs 09/08/22 sennosides 8.6 mg-docusate sodium 50 mg tablet (Stool Softener-Stimulant Laxative) 2 tab PO BID 30 days #120 tabs 09/08/22 Hospital Course Operations - (Left hip hemiarthroplasty.) Procedures None Summary of Care Provided Minutes Spent on Discharge: 35 Hospital Course: 82 year old male with below past medical history hospitalized for left hip fracture, underwent left hip hemiarthroplasty 08/29/2022 Dr. Forde, complicated by bladder neck contracture underwent cystoscopy, dilatation, ochoa catheter placement 08/30/2022 Dr. Costa, admitted to TCU with debility, here for rehabilitation, strengthening, prior to discharge home with family. Discharge home with family 09/13/2022, [facility] PT/OT/SN. Physical Exam Const alert General Appearance: cooperative HEENT normocephalic Eyes PERRL and EOMs intact bilaterally Neck supple, no JVD and no carotid bruits Resp normal respiratory effort, normal air movement and clear to auscultation bilaterally Cardio regular rate and regular rhythm GI normal to inspection, nondistended, normoactive bowel sounds, non-tender and non-distended Extremity normal capillary refill General Extremity: Negative for edema Skin no rashes or lesions noted General Skin Exam: no breakdown Psych affect normal Appearance: appropriate Weight / BMI Weight Weight: 81.278 kg ABG / Lab / Microbiology Data Result Diagrams: 09/02/22 05:36 09/04/22 06:57 Laboratory: Laboratory Results - last 24 hr 09/08/22 06:26: POC Glucose 103 Microbiology: Microbiology 09/05/22 06:45 Nasal Secretion SARS-CoV-2 Antigen (Rapid) - Final 09/03/22 05:20 Nasal Secretion SARS-CoV-2 Antigen (Rapid) - Final D/C Instructions Discharge Diet: No restrictions Discharge Activity: Return to Normal Activity, May Shower and Use Walker Weight Bearing Status: Weight bearing as tolerated Call your doctor if you observe: Fever of 101 or Higher, Inability to urinate, Inability to have a bowel movement, Shortness of breath, Dizziness, Fainting spells, Swelling in the ankles, Chest pain and Uncontrolled pain Additional Instructions: Discharge home with family 09/13/2022, [facility] PT/OT/SN. Please Follow Up With: Aniket Costa MD When: 2 weeks. Meaningful Use Info Meaningful Use Diagnoses (Choose all that apply): None applicable Discharge Plan Admission Admit Date/Time: 09/01/22 17:45 Primary Reason for Your Visit: Debility. Attending Provider: Marty Smallwood Chi Primary Care Provider: Jose Clarke Instructions Additional Instructions / Restrictions: Discharge home with family 09/13/2022, [facility] PT/OT/SN. Discharge Orders/Prescriptions Prescriptions: New sennosides-docusate sodium [Stool Softener-Stimulant Laxat] 8.6-50 mg Tablet 2 tab PO BID 30 Days Qty: 120 0RF amlodipine 10 mg Tablet 10 mg PO DAILY 30 Days Qty: 30 0RF oxycodone 5 mg Tablet 2.5 - 5 mg PO Q4H PRN PRN (Reason: Pain Score 4-10) 3 Days Qty: 18 0RF acetaminophen 500 mg Tablet 1,000 mg PO Q8 Qty: 0 0RF potassium chloride [Klor-Con M20] 20 mEq Tablet,Er Particles/Crystals 20 meq PO DAILYCM 30 Days Qty: 30 0RF Continued hydralazine 100 MG tablet 25 mg PO TID lisinopril 40 MG tablet 40 mg PO DAILY aspirin 81 mg Tablet 81 mg PO DAILY glimepiride 1 mg tablet 0.5 mg PO BID atorvastatin 80 mg tablet 80 mg PO QHS Discontinued amlodipine 5 MG tablet 10 mg PO DAILY oxycodone 5 mg Tablet 2.5 - 5 mg PO Q4H PRN PRN (Reason: Pain Score 4-10) Qty: 0 0RF sennosides-docusate sodium [Stool Softener-Stimulant Laxat] 8.6-50 mg tablet 2 tab PO BID cefdinir 300 mg capsule 300 mg PO BID enoxaparin 40 mg/0.4 mL syringe 40 mg subcut DAILY Referrals / Follow Up: Jose Clarke DO [Primary Care Provider] - Disposition Disposition (needs filled in before D/C Order can be placed): Home Health Service
[2022-09-08 22:00] VITALS: PULSE 71; RESP 16; O2SAT 93
[2022-09-08 22:08] VITALS: BP 124/64; PULSE 71
[2022-09-08] MEDS: Atorvastatin Calcium 80 MG Tablet PO (22:08)
[2022-09-08] MEDS: MELATONIN 10 MG TABLET PO (22:09)
[2022-09-09] MEDS: Enoxaparin 40 MG/0.4 ML Syringe SC (05:47)
[2022-09-09] MEDS: Lisinopril 40 MG Tablet PO (05:47)
[2022-09-09] MEDS: amLODIPine 10 MG Tablet PO (05:47)
[2022-09-09] MEDS: Acetaminophen 500 MG Tablet 1000 MG PO ×3 (05:47→21:16)
[2022-09-09 05:48] VITALS: BP 144/66; PULSE 70
[2022-09-09] MEDS: hydrALAZINE 25 MG Tablet PO ×3 (05:48→21:16)
[2022-09-09 05:51] LABS: Absolute Lymphocyte Count 2.18 X10^3/uL (0.83-4.51); Absolute Neutrophil Count 6.8 X10^3/uL (2.0-7.7); Basophil# 0.18 X10^3/uL; Basophil% 1.6 % (0-1); Eosinophil# 0.88 X10^3/uL; Eosinophils% 7.6 % (0-5); Hematocrit 30.8 % (40-54); Hemoglobin 9.7 g/dL (13.0-16.5); Lymphocyte # 2.18 X10^3/ul (0.83-4.51); Lymphocyte % 18.8 % (19-41); Mean Corp Hgb Conc 31.5 g/dL (32-36); Mean Corpuscular Hgb 29.8 pg (27.0-32.0); Mean Corpuscular Volume 94.8 fL (80-94); Mean Platelet Vol. 8.6 fl (6.2-12.0); Monocyte# 1.31 X10^3/uL; Monocyte% 11.3 % (0-10); NRBC Flagged by Analyzer 0 % (0-5); Neutrophil # 6.81 X10^3/uL (2.7-7.7); Neutrophil % 58.9 % (47-70); Platelet Count 560 K/mm3 (150-450); RBC Distribution Width CV 13.2 % (11.6-14.6); Red Blood Count 3.25 M/mm3 (4.6-6.2); White Blood Count 11.6 K/mm3 (4.4-11.0)
[2022-09-09 06:29] LABS: Anion Gap 4 (5-15); BUN 26 mg/dL (7-18); BUN/Creat Ratio 18.8 RATIO (10-20); Calcium,Total 8.6 mg/dL (8.5-10.1); Chloride 108 mmol/L (98-107); Creatinine, Serum 1.38 mg/dL (0.70-1.30); EST Glomerular Filtration Rate 53 mL/min (>60); Est Glom Filt Rate - Afr Amer 64 mL/min (>60); Estimated Creatinine Clearance 46.08 ml/min; Glucose 108 mg/dL (74-106); Potassium 3.9 mmol/L (3.5-5.1); Sodium Level 141 mmol/L (136-145)
[2022-09-09 06:50] LABS: Bedside Glucose 129 mg/dL (74-106)
[2022-09-09] MEDS: Aspirin 81 MG TAB.CHEW PO (08:32)
[2022-09-09] MEDS: Glimepiride 1 MG Tablet 0.5 MG PO ×2 (08:32→17:51)
[2022-09-09] MEDS: Potassium Chloride Oral Tablet 20 MEQ PO (08:33)
[2022-09-09] MEDS: Tuberculin,Purif.prot.deriv. 50 TU/ML Vial 0.1 ML ID (11:53)
[2022-09-09 15:17] VITALS: BP 132/58; PULSE 81
[2022-09-09 15:18] VITALS: BP 132/58; PULSE 81; RESP 16; TEMP 36.6; O2SAT 98
[2022-09-09 21:16] VITALS: BP 127/56; PULSE 73
[2022-09-09] MEDS: MELATONIN 10 MG TABLET PO (21:16)
[2022-09-09] MEDS: Atorvastatin Calcium 80 MG Tablet PO (21:16)
[2022-09-09 21:22] VITALS: PULSE 73; RESP 16; O2SAT 92
--- NOTE | 2022-09-09 22:30 | NURSING ---
Patient had appt with Dr. Costa today. Valero was removed. No new orders received. Patient is voiding using urinal, with bladder scans every 8 hours. Will continue to monitor.
[2022-09-10] MEDS: Acetaminophen 500 MG Tablet 1000 MG PO ×3 (05:35→21:57)
[2022-09-10 05:36] VITALS: BP 123/70; PULSE 71
[2022-09-10] MEDS: amLODIPine 10 MG Tablet PO (05:36)
[2022-09-10] MEDS: hydrALAZINE 25 MG Tablet PO ×3 (05:36→21:56)
[2022-09-10] MEDS: Enoxaparin 40 MG/0.4 ML Syringe SC (05:36)
[2022-09-10] MEDS: Lisinopril 40 MG Tablet PO (05:36)
[2022-09-10 06:30] LABS: Bedside Glucose 99 mg/dL (74-106)
[2022-09-10] MEDS: Aspirin 81 MG TAB.CHEW PO (08:48)
[2022-09-10] MEDS: Potassium Chloride Oral Tablet 20 MEQ PO (08:48)
--- NOTE | 2022-09-10 10:01 | MDS.RN ---
Information for the mds was obtained from review of the clinical record, interview of resident, staff, and direct observtion of resident's care.
[2022-09-10] MEDS: Glimepiride 1 MG Tablet 0.5 MG PO ×2 (11:10→17:15)
[2022-09-10 13:48] VITALS: BP 134/59; PULSE 74; RESP 14; TEMP 36.6; O2SAT 93
[2022-09-10 14:08] VITALS: BP 134/59; PULSE 74
[2022-09-10 21:45] VITALS: PULSE 75; RESP 16; O2SAT 92
[2022-09-10 21:56] VITALS: BP 106/64; PULSE 75
[2022-09-10] MEDS: MELATONIN 10 MG TABLET PO (21:57)
[2022-09-10] MEDS: Atorvastatin Calcium 80 MG Tablet PO (21:57)
[2022-09-11 06:31] LABS: Bedside Glucose 123 mg/dL (74-106)
[2022-09-11] MEDS: Acetaminophen 500 MG Tablet 1000 MG PO ×3 (06:46→21:40)
[2022-09-11] MEDS: Lisinopril 40 MG Tablet PO (06:46)
[2022-09-11] MEDS: amLODIPine 10 MG Tablet PO (06:46)
[2022-09-11] MEDS: Enoxaparin 40 MG/0.4 ML Syringe SC (06:47)
[2022-09-11 06:49] VITALS: BP 131/65; PULSE 71
[2022-09-11] MEDS: hydrALAZINE 25 MG Tablet PO ×3 (06:49→21:39)
[2022-09-11] MEDS: Potassium Chloride Oral Tablet 20 MEQ PO (08:59)
[2022-09-11] MEDS: Aspirin 81 MG TAB.CHEW PO (08:59)
[2022-09-11] MEDS: Glimepiride 1 MG Tablet 0.5 MG PO ×2 (09:00→17:28)
[2022-09-11 14:20] VITALS: PULSE 71
[2022-09-11 14:43] VITALS: BP 118/56; PULSE 78; RESP 18; TEMP 36.3; O2SAT 95
[2022-09-11 21:00] VITALS: PULSE 74; RESP 14; O2SAT 96
[2022-09-11 21:39] VITALS: BP 133/60; PULSE 74
[2022-09-11] MEDS: Atorvastatin Calcium 80 MG Tablet PO (21:40)
[2022-09-11] MEDS: MELATONIN 10 MG TABLET PO (21:40)
[2022-09-12] MEDS: Lisinopril 40 MG Tablet PO (06:09)
[2022-09-12] MEDS: Acetaminophen 500 MG Tablet 1000 MG PO ×3 (06:09→20:49)
[2022-09-12] MEDS: Enoxaparin 40 MG/0.4 ML Syringe SC (06:09)
[2022-09-12] MEDS: amLODIPine 10 MG Tablet PO (06:09)
[2022-09-12 06:10] VITALS: BP 144/62; PULSE 71
[2022-09-12] MEDS: hydrALAZINE 25 MG Tablet PO ×3 (06:10→20:49)
[2022-09-12 06:31] LABS: Bedside Glucose 110 mg/dL (74-106)
--- NOTE | 2022-09-12 06:38 | NURSING ---
pt voided per urinal, bladder scanned for 0 residual urine.
[2022-09-12] MEDS: Potassium Chloride Oral Tablet 20 MEQ PO (08:18)
[2022-09-12] MEDS: Aspirin 81 MG TAB.CHEW PO (08:18)
[2022-09-12] MEDS: Glimepiride 1 MG Tablet 0.5 MG PO ×2 (08:18→17:30)
[2022-09-12 14:10] VITALS: BP 130/66; PULSE 76; RESP 18; TEMP 36.7; O2SAT 98
[2022-09-12 14:12] VITALS: BP 130/66; PULSE 76
[2022-09-12 20:49] VITALS: BP 137/64; PULSE 72
[2022-09-12] MEDS: MELATONIN 10 MG TABLET PO (20:49)
[2022-09-12] MEDS: Atorvastatin Calcium 80 MG Tablet PO (20:49)
[2022-09-13] MEDS: Enoxaparin 40 MG/0.4 ML Syringe SC (06:12)
[2022-09-13] MEDS: Acetaminophen 500 MG Tablet 1000 MG PO ×2 (06:12→13:34)
[2022-09-13 06:13] VITALS: BP 137/71; PULSE 70
[2022-09-13] MEDS: amLODIPine 10 MG Tablet PO (06:13)
[2022-09-13] MEDS: hydrALAZINE 25 MG Tablet PO ×2 (06:13→13:33)
[2022-09-13] MEDS: Lisinopril 40 MG Tablet PO (06:13)
[2022-09-13 06:40] LABS: Bedside Glucose 96 mg/dL (74-106)
[2022-09-13] MEDS: Glimepiride 1 MG Tablet 0.5 MG PO (08:12)
[2022-09-13] MEDS: Aspirin 81 MG TAB.CHEW PO (08:13)
[2022-09-13] MEDS: Potassium Chloride Oral Tablet 20 MEQ PO (08:13)
[2022-09-13 13:33] VITALS: BP 127/58; PULSE 71
[2022-09-13 13:45] VITALS: BP 127/58; PULSE 71; RESP 18; TEMP 36.9; O2SAT 98
== END 2022-09-13 14:25 | disposition home health service (06) | DRG 561 ==
PROVIDERS: Admitting Provider Family Medicine Geriatric Medicine; PCP Family Medicine; Visit Provider Family Medicine Geriatric Medicine
DX: S72.002D Fracture of unspecified part of neck of left femur, subsequent encounter for closed fracture with routine healing (principal); E11.22 Type 2 diabetes mellitus with diabetic chronic kidney disease; N18.32 Chronic kidney disease, stage 3b; I25.10 Atherosclerotic heart disease of native coronary artery without angina pectoris; E78.5 Hyperlipidemia, unspecified; I12.9 Hypertensive chronic kidney disease with stage 1 through stage 4 chronic kidney disease, or unspecified chronic kidney disease; E87.6 Hypokalemia; W19.XXXD Unspecified fall, subsequent encounter; Z79.84 Long term (current) use of oral hypoglycemic drugs; Z79.82 Long term (current) use of aspirin; Z96.642 Presence of left artificial hip joint; Z95.0 Presence of cardiac pacemaker; Z79.899 Other long term (current) drug therapy; N40.1 Benign prostatic hyperplasia with lower urinary tract symptoms; N32.0 Bladder-neck obstruction
CPT/HCPCS: 36415; 80048; 82962; 85025; 87426; 87811; 97110; 97116; 97162; 97166; 97530; 97535; 97802; A4216

== ENCOUNTER 2023-02-03 10:40 | Emergency (ER) | payer MEDICARE, SELFPAY ==
[2023-02-03 10:41] VITALS: BP 182/67; PULSE 77; RESP 15; TEMP 36.3; O2SAT 98; BMI 26.1
[2023-02-03 11:12] VITALS: BP 151/77; BP 152/67; BP 166/62; PULSE 62; PULSE 78; PULSE 90
--- NOTE | 2023-02-03 11:12 | EKG12_ITS ---
Test Reason : SYNCOPY Blood Pressure : / mmHG Vent. Rate : 067 BPM Atrial Rate : 067 BPM P-R Int : 156 ms QRS Dur : 098 ms QT Int : 424 ms P-R-T Axes : 045 035 048 degrees QTc Int : 448 ms Normal sinus rhythm Normal ECG Confirmed by JEFFERY SANCHEZ ([id number]), editor index RADHA CAMACHO ([id number]) on 02/08/2023 7:44:29 AM Referred By: TARSA Confirmed By:JEFFERY SANCHEZ
--- NOTE | 2023-02-03 11:15 | RAD_ITS ---
STUDY: X-RAY CHEST REASON FOR EXAM: Male, 82 years old. chest pain TECHNIQUE: Single AP portable view of the chest. COMPARISON: December 16, 2016 FINDINGS: Left chest cardiac device and right heart leads are unremarkable. This cardiac device was not present on the 2017 study. The lungs are clear and expanded. There is no demonstrated pleural abnormality. Normal size heart. Normal mediastinum and linda. Normal visualized pulmonary arteries. There is atherosclerotic calcification of the aortic arch with tortuosity. There are diffuse degenerative changes of the visualized thoracic spine. Normal visualized ribs, clavicles, and shoulders. There is no demonstrated abnormality of the visualized soft tissue structures of the upper abdomen. RAD/Chest 1 View (Portable) IMPRESSION: Degenerative changes, as described above. No demonstrated acute cardiopulmonary process. Electronically Signed: Aj Forman MD at 11:37 EDT ,
--- NOTE | 2023-02-03 11:16 | EX.ED.DYSGE1 ---
HPI History of Present Illness Chief Complaint: Syncope Detail of Chief Complaint: Near syncope. No loss conscious. Informant: patient and family Onset/Context/Timing Onset: Weeks Context: Sudden Onset Timing: Intermittent Current Severity: Gone Maximum Severity: Mild Narrative Narrative: 82-year-old male history of CAD with stent and pacemaker. Also hypertension and chronic kidney disease. States the last 2 weeks if he goes from a seated to a standing or a lying to a standing position he feels like he might pass out. No actual loss of conscious. No headache or chest pain. No abdominal pain. No vomiting or diarrhea. No fever or chills. No shortness of breath. He feels fine unless he is changing positions. He is symptom-free at this time. Prior similar symptoms: Yes Recent Illness/Hospitalization: No PFSH PFSH Medical History Benign prostatic hyperplasia Coronary artery disease Diabetes mellitus, type 2 HLD (hyperlipidemia) Hypertension Pacemaker Stage 3b chronic kidney disease Home Medications hydralazine 100 mg tablet 25 mg PO TID BP 12/16/16 [History Last Taken 08/28/22 07:00] lisinopril 40 mg tablet 40 mg PO DAILY BP 06/13/20 [History Last Taken 08/28/22 07:00] aspirin 81 mg tablet 81 mg PO DAILY Heart 04/23/21 [History Last Taken 08/28/22 07:00] glimepiride 1 mg tablet 0.5 mg PO BID Diabetes 04/23/21 [History Last Taken 08/28/22 07:00] atorvastatin 80 mg tablet 80 mg PO QHS HYPERLIPIDEMIA 08/28/22 [History Last Taken 08/27/22 18:00] acetaminophen 500 mg tablet 1,000 mg PO Q8 #0 tabs 09/08/22 [Rx Last Taken Unknown] amlodipine 10 mg tablet 10 mg PO DAILY 30 days #30 tabs 09/08/22 [Rx Last Taken Unknown] oxycodone 5 mg tablet 2.5 - 5 mg PO Q4H PRN PRN Pain Score 4-10 3 days #18 tabs 09/08/22 [Rx Last Taken Unknown] potassium chloride 20 mEq tablet,extended release(part/cryst) (Klor-Con M) 20 meq PO DAILYCM 30 days #30 tabs 09/08/22 [Rx Last Taken Unknown] sennosides 8.6 mg-docusate sodium 50 mg tablet (Stool Softener-Stimulant Laxative) 2 tab PO BID 30 days #120 tabs 09/08/22 [Rx Last Taken Unknown] Allergy/AdvReac Type Severity Reaction Status Date / Time No Known Allergies Allergy Verified 02/03/23 10:48 Family History Mother Colon cancer Diagnosed age 83, passed age 84. Father Heart disease Hypertension Myocardial infarction CAD (coronary artery disease) Surgical History H/O cardiac catheterization History of coronary artery stent placement History of left hip hemiarthroplasty S/P TURP Status post placement of cardiac pacemaker Social History household members: family Smoking Status: Never smoker alcohol intake: never substance use type: does not use ROS ROS ED ROS Narrative Denies recent illness. Review of Systems ROS Unobtainable: Denies due to encephalopathy Constitutional Constitutional ED: Denies chills or fever(s) Eyes Eyes: Denies blurry vision ENT ENT ED: Denies ear pain Cardiovascular Cardiovascular: Denies chest pain Respiratory/Chest Respiratory/Chest: Denies dyspnea Gastrointestinal Gastrointestinal: Denies abdominal pain Genitourinary Genitourinary ED: Denies dysuria or hematuria Musculoskeletal Musculoskeletal: Denies arthralgias Integumentary Denies abscess Neurologic Neurologic: Denies headache(s) Psychiatric Psychiatric: Denies anxiety or depression Hematologic/Lymphatic Hematologic/Lymphatic: Reports none Allergic/Immunologic Allergic/Immunologic ED: Denies mouth swelling or tongue swelling EXAM Physical Exam Narrative Exam Narrative: Well-appearing 82-year-old male. Vital signs stable afebrile. H EENT exam unremarkable. Atraumatic. Moist extremities. Neck nontender no JVD. Lungs clear to auscultation bilaterally. Heart regular rhythm rate about 75 no murmur. Chest wall nontender. Abdomen soft nontender. Back nontender. Moving all 4 extremities. 5 of 5 coding clerks supervisor strength. Dorsi plantarflexion intact. Neurological exam is unremarkable. He is awake and alert. No focal motor deficits. Family present in room. Const Vital Signs: 02/03/23 10:41 02/03/23 10:49 02/03/23 11:12 Temperature 97.4 F L Temperature Source Oral Pulse Rate 77 Pulse Rate [Lying] Pulse Rate [Sitting (for 1 minute prior to obtaining)] Pulse Rate [Standing (for 1 minute prior to obtaining)] Respiratory Rate 15 Respiratory Effort Normal Respiratory Pattern Normal Blood Pressure 182/67 H Blood Pressure [Lying] Blood Pressure [Sitting (for 1 minute prior to obtaining)] Blood Pressure [Standing (for 1 minute prior to obtaining)] Blood Pressure Mean 105 Blood Pressure Mean [Lying] Blood Pressure Mean [Sitting (for 1 minute prior to obtaining)] Blood Pressure Mean [Standing (for 1 minute prior to obtaining)] Pulse Ox 98 Oxygen Delivery Method Room Air Room Air 02/03/23 11:12 Temperature Temperature Source Pulse Rate Pulse Rate [Lying] 62 Pulse Rate [Sitting (for 1 minute prior to obtaining)] 78 Pulse Rate [Standing (for 1 minute prior to obtaining)] 90 Respiratory Rate Respiratory Effort Respiratory Pattern Blood Pressure Blood Pressure [Lying] 166/62 H Blood Pressure [Sitting (for 1 minute prior to obtaining)] 152/67 H Blood Pressure [Standing (for 1 minute prior to obtaining)] 151/77 H Blood Pressure Mean Blood Pressure Mean [Lying] 96 Blood Pressure Mean [Sitting (for 1 minute prior to obtaining)] 95 Blood Pressure Mean [Standing (for 1 minute prior to obtaining)] 101 Pulse Ox Oxygen Delivery Method Positive well nourished and well developed; Negative for obese, cachectic, contractures or unkempt General Appearance ED: well developed and NAD; Negative for unkempt, cachectic, contractures, cyanotic, diaphoretic or pallor Nutritional Appearance: Negative for cachectic or obese HEENT Reports moist mucous membranes; Denies dry mucous membranes Negative for trauma or tenderness Mouth ED: No dry mucous membranes Mouth: No dry mucous membranes Eyes PERRL and EOMs intact bilaterally General Eye ED: Negative for pale conjunctiva or scleral icterus Neck no lymphadenopathy, supple and no JVD General: Negative for tenderness Lymph Lymphatic: Negative for other Chest Wall inspection of chest normal and palpation of chest normal Chest: Negative for other Resp normal respiratory effort and clear to auscultation bilaterally Effort and Inspection: Negative for retractions Auscultation: Negative for rales, rhonchi or wheezes Cardio regular rate, regular rhythm, S1 normal heart sound, S2 normal heart sound and no murmurs Rhythm: Negative for abnormal rhythm GI normal to inspection, nondistended, normoactive bowel sounds, non-tender, non-distended and no masses Inspection: Negative for abdominal distention Auscultation: normoactive bowel sounds Palpation: soft; Negative for tender Back/Spine no CVA tenderness General Back: Negative for CVA tenderness or other Cervical Spine: Negative for cervical spine tenderness Thoracic Spine / Upper Back: Negative for thoracic spinal tenderness Lumbar Spine / Lower Back: Negative for lumbar spinal tenderness Extremity normal to inspection General Extremety ED: Negative for edema or tenderness General Extremity: Negative for edema Neuro oriented x3 and CN's II-XII intact bilaterally Sensorium / Orientation: alert; Negative for orientation impaired, lethargic or stuporous Motor Exam: strength 5/5 throughout Psych mental status grossly normal Appearance: Negative for unkempt Attitude: No agitated Mood & Affect: Negative for depressed, anxious or tearful Skin no rashes or lesions noted, no wounds and skin turgor normal General Skin Exam: elasticity normal; Negative for jaundice or pallor Lesions: No lesion noted Rashes: No rashes noted Trauma: Negative for abrasion Wounds: Negative for wounds noted MDM MDM MDM Narrative Medical decision making narrative: 82-year-old male describes orthostatic hypotension for the last 2 weeks while getting up from the seated to standing position or lying to a standing position. Denies any vomiting or diarrhea. No other complaints. Benign exam. We will go through screening labs evaluating for possible dehydration or anemia or dysrhythmia. I do not think he needs a CAT scan. Treated with a liter normal saline. Repeat exam patient is doing well at 1:35 PM. I be discharged home with outpatient follow-up with primary care physician. Recently was started on Lasix which I would have him hold that. Fluids and rest. Also have his blood sugar rechecked. History & Record Review Discussion w/independent historian: Patient and Family Lab Data Attestation: I reviewed the patient's lab results. Lab results narrative: Orthostatic vital signs were negative. CBC shows a white count 10.8. H&H of 13.9 and 43. Platelets 426. Chemistries unremarkable gap of 7. BUN of 42 creatinine 1.62 consistent with mild dehydration. Glucose 235. Labs: Laboratory Results - last 24 hr 02/03/23 02/03/23 11:10 11:10 WBC 10.8 RBC 4.58 L Hgb 13.9 Hct 43.2 MCV 94.3 H MCH 30.3 MCHC 32.2 RDW Std Deviation 43.9 RDW Coeff of Facundo 12.7 Plt Count 426 MPV 9.9 Immature Gran % (Auto) 1.100 H Neut % (Auto) 74.8 H Lymph % (Auto) 13.1 L [place] % (Auto) 9.3 Eos % (Auto) 0.8 Baso % (Auto) 0.9 Absolute Neuts (auto) 8.1 H Absolute Lymphs (auto) 1.42 Nucleated RBC % 0 Sodium 140 Potassium 3.8 Chloride 106 Carbon Dioxide 27.0 Anion Gap 7 BUN 42 H Creatinine 1.62 H Estim Creat Clear Calc 34.60 Est GFR (MDRD) Af Amer 53 L Est GFR (MDRD) Non-Af 44 L BUN/Creatinine Ratio 25.9 H Glucose 235 H Calcium 9.3 Radiography Chest X-Ray - ED: 1 View, Read by ED Physician, Normal, Heart, Lungs, Mediastinum, Bony Structures, No Acute Disease, Chronic Changes and - (Left-sided pacemaker.) Diagnostic Testing: Clinical Impression(s) from Imaging Studies Chest X-Ray 02/03/23 11:15 IMPRESSION: Degenerative changes, as described above. No demonstrated acute cardiopulmonary process. Electronically Signed: Aj Forman MD at 11:37 EDT Reading Location ID and State: [facility] / [place] , Service support , Chest x-ray, portable, single view, interpreted by myself shows no acute abnormality. Normal cardiac silhouette. No infiltrates. No effusions. Left-sided pacemaker. Rhythm Strip Rhythm Strip: Sinus Rhythm Rate: 67 Ectopy: None EKG Initial EKG: Attestation: I personally reviewed and interpreted this EKG as follows: Interpretation: Sinus Rhythm and No Acute Injury Pattern Comments: Normal sinus rhythm rate of 67. No acute abnormality. No change from prior EKG from August of last year. Prior EKG tracings: available for review Prior: Unchanged Discharge Plan Triage Chief Complaint: Syncope ED Provider: Ayaan Quesada Dx/Rx/DC Orders Clinical Impression: Near syncope, HTN (hypertension), Coronary artery disease, Acute hyperglycemia Instructions: ED Near-Fainting, Uncertain Cause Prescriptions: No Action hydralazine 100 MG tablet 25 mg PO TID lisinopril 40 MG tablet 40 mg PO DAILY aspirin 81 mg Tablet 81 mg PO DAILY glimepiride 1 mg tablet 0.5 mg PO BID atorvastatin 80 mg tablet 80 mg PO QHS sennosides-docusate sodium [Stool Softener-Stimulant Laxat] 8.6-50 mg Tablet 2 tab PO BID 30 Days Qty: 120 0RF amlodipine 10 mg Tablet 10 mg PO DAILY 30 Days Qty: 30 0RF oxycodone 5 mg Tablet 2.5 - 5 mg PO Q4H PRN PRN (Reason: Pain Score 4-10) 3 Days Qty: 18 0RF acetaminophen 500 mg Tablet 1,000 mg PO Q8 Qty: 0 0RF potassium chloride [Klor-Con M20] 20 mEq Tablet,Er Particles/Crystals 20 meq PO DAILYCM 30 Days Qty: 30 0RF Primary Care Provider: Jose Clarke Referrals: Jose Clarke DO [Primary Care Provider] - 1 Week if not improving Activity Restrictions/Additional Instructions: Plenty of fluids and rest. The medication furosemide. Have your blood sugar rechecked it was 235 and elevated today. Follow-up with either your primary care physician or Dr. Greg Arriaza for further evaluation. Disposition Disposition: Home, Self Care
[2023-02-03 11:20] LABS: Absolute Lymphocyte Count 1.42 X10^3/uL (0.83-4.51); Absolute Neutrophil Count 8.1 X10^3/uL (2.0-7.7); Basophil% 0.9 % (0-1); Eosinophil# 0.09 X10^3/uL; Eosinophils% 0.8 % (0-5); Hematocrit 43.2 % (40-54); Hemoglobin 13.9 g/dL (13.0-16.5); Lymphocyte # 1.42 X10^3/ul (0.83-4.51); Lymphocyte % 13.1 % (19-41); Mean Corp Hgb Conc 32.2 g/dL (32-36); Mean Corpuscular Hgb 30.3 pg (27.0-32.0); Mean Corpuscular Volume 94.3 fL (80-94); Mean Platelet Vol. 9.9 fl (6.2-12.0); Monocyte# 1.01 X10^3/uL; Monocyte% 9.3 % (0-10); NRBC Flagged by Analyzer 0 % (0-5); Neutrophil % 74.8 % (47-70); Platelet Count 426 K/mm3 (150-450); RBC Distribution Width CV 12.7 % (11.6-14.6); RBC Distribution Width SD 43.9 fl (35.1-43.9); Red Blood Count 4.58 M/mm3 (4.6-6.2); White Blood Count 10.8 K/mm3 (4.4-11.0)
[2023-02-03 11:33] LABS: Anion Gap 7 (5-15); BUN 42 mg/dL (7-18); BUN/Creat Ratio 25.9 RATIO (10-20); Calcium,Total 9.3 mg/dL (8.5-10.1); Chloride 106 mmol/L (98-107); Creatinine, Serum 1.62 mg/dL (0.70-1.30); EST Glomerular Filtration Rate 44 mL/min (>60); Est Glom Filt Rate - Afr Amer 53 mL/min (>60); Glucose 235 mg/dL (74-106); Potassium 3.8 mmol/L (3.5-5.1); Sodium Level 140 mmol/L (136-145)
[2023-02-03] MEDS: 0.9% Normal Saline 1,000 ML 999 ML IV (11:37)
[2023-02-03 12:41] VITALS: BP 160/70
== END 2023-02-03 14:01 | disposition home or self-care (01) ==
PROVIDERS: Emergency Provider Emergency Medicine; PCP Family Medicine; Visit Provider Emergency Medicine
DX: R55 Syncope and collapse (principal); E11.65 Type 2 diabetes mellitus with hyperglycemia; E11.22 Type 2 diabetes mellitus with diabetic chronic kidney disease; N18.32 Chronic kidney disease, stage 3b; I12.9 Hypertensive chronic kidney disease with stage 1 through stage 4 chronic kidney disease, or unspecified chronic kidney disease; I25.10 Atherosclerotic heart disease of native coronary artery without angina pectoris; E78.5 Hyperlipidemia, unspecified; Z95.0 Presence of cardiac pacemaker; Z95.5 Presence of coronary angioplasty implant and graft; Z79.899 Other long term (current) drug therapy; Z79.82 Long term (current) use of aspirin; Z79.85 Long-term (current) use of injectable non-insulin antidiabetic drugs
CPT/HCPCS: 71045; 80048; 85025; 93005; 96360; 96361; 99285; J7030; A4216

== ENCOUNTER 2024-12-17 12:15 | Observation (INO) | payer MEDICARE, SELFPAY ==
[2024-12-17] VITALS (11 sets, daily range): BP systolic 126–170; BP diastolic 60–78; PULSE 54–79; RESP 14–22; TEMP 36.3; O2SAT 94–98; BMI 28.9; BMI 23.6
--- NOTE | 2024-12-17 12:50 | EKG12_ITS ---
Test Reason : CP Blood Pressure : */* mmHG Vent. Rate : 77 BPM Atrial Rate : 77 BPM P-R Int : 158 ms QRS Dur : 88 ms QT Int : 402 ms P-R-T Axes : 45 18 41 degrees QTcB Int : 454 ms Sinus rhythm with frequent ventricular-paced complexes and Premature atrial complexes Increased R/S ratio in V1, consider early transition or posterior infarct Abnormal ECG Confirmed by Vishal Shannon ([id number]), poultry picker RADHA CAMACHO ([id number]) on 12/19/2024 7:59:59 AM Referred By: Confirmed By: Vishal Shannon
--- NOTE | 2024-12-17 12:52 | EX.ED.DYSGE1 ---
HPI History of Present Illness Chief Complaint: Chest Pain Informant: patient and EMS Narrative Narrative: 84-year-old diabetic male with a history of coronary artery disease presenting to the emergency room with nausea and dizziness. Patient states that last night during the night he got up to utilize the bathroom and felt off balance. He checked his blood sugar but it was okay. When he got up this morning he felt nauseated and dizzy. He ate and went out to his mailbox but just did not feel right. He called his doctor's office and spoke with the nurse to advise him to come to emergency. He denies any chest pain or shortness of breath. He states that he did have an episode of emesis. No diarrhea no bowel movement this morning. Did have a normal bowel movement yesterday. EMS states that he got particularly nauseated and more dizzy and route and when they looked at the monitor it seemed that there was ST elevation so they instituted a STEMI protocol giving him aspirin and nitroglycerin. However the ST elevation was not always noted on the monitor and arriving here in the hospital his EKG does not show any. 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 [facility] Medical History HLD (hyperlipidemia) Hypertension Stage 3b chronic kidney disease Coronary artery disease Benign prostatic hyperplasia Diabetes mellitus, type 2 Pacemaker Home Medications ?Medication ?Instructions ?Recorded ?Last Taken ?Type hydralazine 100 mg tablet 25 mg PO TID BP 12/16/16 08/28/22 07:00 History lisinopril 40 mg tablet 40 mg PO DAILY BP 06/13/20 08/28/22 07:00 History aspirin 81 mg tablet 81 mg PO DAILY Heart 04/23/21 08/28/22 07:00 History glimepiride 1 mg tablet 2 mg PO BID Diabetes 04/23/21 08/28/22 07:00 History atorvastatin 80 mg tablet 80 mg PO QHS HYPERLIPIDEMIA 08/28/22 08/27/22 18:00 History acetaminophen 500 mg tablet 1,000 mg (2 x 500 mg) PO Q8 #0 tabs 09/08/22 Unknown Rx amlodipine 10 mg tablet 10 mg PO DAILY 30 days #30 tabs 09/08/22 Unknown Rx chlorthalidone 25 mg tablet 25 mg PO DAILY 12/17/24 Unknown History ezetimibe 10 mg tablet 10 mg PO DAILY 12/17/24 Unknown History insulin glargine 100 unit/mL (3 10 unit subcut DAILY 12/17/24 Unknown History mL) subcutaneous pen (Lantus Solostar U-100 Insulin) Allergy/AdvReac Type Severity Reaction Status Date / Time No Known Allergies Allergy Verified 02/03/23 10:48 Family History Mother Colon cancer Diagnosed age 83, passed age 84. Father Heart disease Hypertension Myocardial infarction CAD (coronary artery disease) Surgical History History of left hip hemiarthroplasty S/P TURP Status post placement of cardiac pacemaker H/O cardiac catheterization History of coronary artery stent placement Social History household members: family Smoking Status: Never smoker alcohol intake: never substance use type: does not use ROS ROS ED Constitutional Constitutional ED: Denies chills or weight loss Eyes Eyes: Denies change in vision or diplopia ENT ENT ED: Denies ear pain, rhinorrhea or sore throat Cardiovascular Cardiovascular: Denies chest pain, orthopnea, palpitations or racing heartbeat Respiratory/Chest Respiratory/Chest: Denies cough, dyspnea or orthopnea Gastrointestinal Gastrointestinal: Reports nausea and vomiting; Denies abdominal pain or diarrhea Genitourinary Genitourinary ED: Denies dysuria, hematuria or urinary frequency Musculoskeletal Musculoskeletal: Denies arthralgias or myalgias Integumentary Denies abscess or rash Neurologic Neurologic: Reports other Details: Dizziness ; Denies headache(s), paresthesias or weakness Psychiatric Psychiatric: Denies anxiety, depression, suicidal ideation or suicidal thoughts Endocrine Endocrinology: Denies polydipsia, polyphagia or polyuria Allergic/Immunologic Allergic/Immunologic ED: Denies mouth swelling, tongue swelling or urticaria EXAM Physical Exam Const Vital Signs: 12/17/24 12:16 Temperature 97.4 F L Temperature Source Oral Pulse Rate 74 Respiratory Rate 18 Blood Pressure 151/76 H Blood Pressure Mean 101 Pulse Ox 98 Oxygen Delivery Method Room Air Positive well nourished and well developed General Appearance ED: well developed HEENT Reports normocephalic, head/scalp atraumatic and moist mucous membranes Eyes PERRL and EOMs intact bilaterally Neck no lymphadenopathy, supple and no JVD Resp normal respiratory effort and clear to auscultation bilaterally Cardio regular rate, regular rhythm and no murmurs GI normal to inspection, nondistended, normoactive bowel sounds and non-tender Palpation: soft Back/Spine no CVA tenderness and normal ROM Extremity normal to inspection General Extremety ED: Negative for edema General Extremity: Negative for edema Neuro oriented x3 and CN's II-XII intact bilaterally Sensorium / Orientation: alert Motor Exam: strength 5/5 throughout Psych mental status grossly normal Mood & Affect: Negative for depressed or tearful Skin no rashes or lesions noted and no wounds MDM MDM History & Record Review Discussion w/independent historian: EMS personnel and Patient EKG Initial EKG: Attestation: I personally reviewed and interpreted this EKG as follows: Comments: Sinus rhythm ventricular rate of 77 bpm. Ventricular paced complexes. Discharge Plan Triage Chief Complaint: Chest Pain ED Provider: Mk Terry Dx/Rx/DC Orders Prescriptions: No Action hydralazine 100 MG tablet 25 mg PO TID lisinopril 40 MG tablet 40 mg PO DAILY aspirin 81 mg Tablet 81 mg PO DAILY glimepiride 1 mg tablet 2 mg PO BID atorvastatin 80 mg tablet 80 mg PO QHS amlodipine 10 mg Tablet 10 mg PO DAILY 30 Days Qty: 30 0RF acetaminophen 500 mg Tablet 1,000 mg PO Q8 Qty: 0 0RF ezetimibe 10 mg tablet 10 mg PO DAILY chlorthalidone 25 mg tablet 25 mg PO DAILY insulin glargine [Lantus Solostar U-100 Insulin] 100 unit/mL (3 mL) insulin pen 10 unit SUBCUT DAILY Patient Comments: BEGIN 10 UNITS SUBCUTANEOUSLY EACH DAY AND INCREASE BY 1 UNIT EVERY OTHER DAY IF FASTING GLUCOSE LEVEL OVER 140. THEN MAINTAIN DOSE TO KEEP GLUCOSE AROUND 140 OR LOWER Primary Care Provider: Jose Clarke Referrals: Jose Clarke DO [Primary Care Provider] - Print Language: French
--- NOTE | 2024-12-17 12:55 | RAD_ITS ---
EXAM: XR Chest, 1 View CLINICAL INDICATION: TECHNIQUE: Frontal view of the chest. COMPARISON: No relevant prior studies available. FINDINGS: LUNGS AND PLEURAL SPACES: Pulmonary venous congestion. No consolidation. No pneumothorax. HEART: Unremarkable. No cardiomegaly. MEDIASTINUM: Unremarkable. Normal mediastinal contour. BONES/JOINTS: Unremarkable. No acute fracture. TUBES, LINES AND DEVICES: Left-sided cardiac pacemaker. RAD/Chest 1 View (Portable) IMPRESSION: Pulmonary venous congestion. Reading Location: [facility]
[2024-12-17] MEDS: Ondansetron 4 MG/2 ML Vial IV ×2 (12:57→21:15)
[2024-12-17 13:26] LABS: Absolute Lymphocyte Count 3.25 X10^3/uL (0.83-4.51); Absolute Neutrophil Count 7.9 X10^3/uL (2.0-7.7); Basophil# 0.16 X10^3/uL; Basophil% 1.3 % (0-1); Eosinophil# 0.14 X10^3/uL; Eosinophils% 1.1 % (0-5); Hematocrit 45.2 % (40-54); Hemoglobin 14.6 g/dL (13.0-16.5); Lymphocyte # 3.25 X10^3/ul (0.83-4.51); Lymphocyte % 25.9 % (19-41); Mean Corp Hgb Conc 32.3 g/dL (32-36); Mean Corpuscular Hgb 30.2 pg (27.0-32.0); Mean Corpuscular Volume 93.6 fL (80-94); Mean Platelet Vol. 10.4 fl (6.2-12.0); Monocyte# 1.02 X10^3/uL; Monocyte% 8.1 % (0-10); NRBC Flagged by Analyzer 0 % (0-5); Neutrophil # 7.91 X10^3/uL (2.7-7.7); Neutrophil % 63.1 % (47-70); Platelet Count 395 K/mm3 (150-450); RBC Distribution Width CV 12.8 % (11.6-14.6); RBC Distribution Width SD 44.2 fl (35.1-43.9); Red Blood Count 4.83 M/mm3 (4.6-6.2); White Blood Count 12.5 K/mm3 (4.4-11.0)
[2024-12-17 13:45] LABS: AST(SGOT) 13 U/L (15-37); Alanine Aminotransfer ALT/SGPT 24 U/L (16-61); Albumin, Serum 3.5 g/dL (3.2-5.0); Alkaline Phosphatase 81 U/L (45-117); Anion Gap 8 (5-15); BUN 35 mg/dL (7-18); BUN/Creat Ratio 18.8 RATIO (10-20); Bilirubin, Direct 0.22 mg/dL (0.00-0.30); Calcium,Total 9.2 mg/dL (8.5-10.1); Chloride 109 mmol/L (98-107); Creatinine, Serum 1.86 mg/dL (0.70-1.30); EST Glomerular Filtration Rate 37 mL/min (>60); Est Glom Filt Rate - Afr Amer 45 mL/min (>60); Estimated Creatinine Clearance 32.18 ml/min; Globulin 3.9 g/dL (2.2-4.2); Glucose 191 mg/dL (74-106); Lipase 65 U/L (73-393); Potassium 3.6 mmol/L (3.5-5.1); Protein, Total 7.4 g/dL (6.4-8.2); Sodium Level 145 mmol/L (136-145); Troponin-I HS (w/2H Reflex) 10 pg/mL (3.0-78.0)
[2024-12-17 15:22] LABS: Reflex Troponin-HS? (from REC) Y
--- NOTE | 2024-12-17 16:06 | CT_ITS ---
EXAM: BRAIN/HEAD WITHOUT CONTRAST CLINICAL HISTORY: Hypertension. COMPARISON: None. TECHNIQUE: Noncontrast images of the head with multiplanar reconstructions. Dose reduction techniques were used including intermediate exposure control (AEC),iterative reconstruction technique, and/or mA and/or KV dose adjustments based on patient's size. FINDINGS: CT HEAD FINDINGS: No acute intracranial hemorrhage, mass, mass effect, midline shift or pathologic extra-axial fluid collection. Chronic right caudate lacunar infarct. No hydrocephalus. Preservation of the blas- white parenchymal differentiation. There are mild, diffuse, symmetrical, periventricular and subcortical white matter lucencies, a nonspecific finding, which may represent sequela of small vessel disease in a patient of this age. Vascular calcifications are noted. The orbits are symmetrically unremarkable. Visualized paranasal sinuses and mastoid air cells are clear. The calvarium is grossly intact. CT/Brain/Head without Contrast IMPRESSION: Chronic right caudate lacunar infarct. No CT evidence of acute intracranial pathology. Reading Location: [id number]
[2024-12-17 16:13] LABS: Troponin-I HS 10 pg/mL (3.0-78.0)
--- NOTE | 2024-12-17 18:03 | HP.PCM.HOS_ITS ---
HPI - General General Date of Service: 12/17/24 Chief Complaint: Dizziness HPI Narrative BRIAN OTERO, is a 84 M who presents with dizziness. Dizziness began last night. Worse with changing position and patient has been unsteady due to this. Presented to the emergency room where he underwent a workup including a CAT scan that showed a chronic right caudate lacunar infarct. Patient knuckling of dizziness while at rest but does get worse when he changes position. He has never had this problem before. He has had some abdominal pain and did have some nausea and vomiting. [facility] Medical History HLD (hyperlipidemia) Hypertension Stage 3b chronic kidney disease Coronary artery disease Benign prostatic hyperplasia Diabetes mellitus, type 2 Pacemaker Home Medications ?Medication ?Instructions ?Recorded ?Last Taken ?Type hydralazine 100 mg tablet 25 mg PO TID BP 12/16/1603/14 07:00 History lisinopril 40 mg tablet 40 mg PO DAILY BP 06/13/20 1 10/28/21 07:00 History aspirin 81 mg tablet 81 mg PO DAILY Heart 1 08/28/22 07:00 History glimepiride 1 mg tablet 2 mg PO BID Diabetes 1 08/28/22 07:00 History atorvastatin 80 mg tablet 80 mg PO QHS HYPERLIPIDEMIA 08/28/22 08/27/22 18:00 History acetaminophen 500 mg tablet 1,000 mg (2 x 500 mg) PO Q 8 #0 tabs 09/08/22 Unknown Rx amlodipine 10 mg tablet 10 mg PO DAILY 30 days #30 t abs 09/08/22 Unknown Rx chlorthalidone 25 mg tablet 25 mg PO DAILY 12/17/24 Un known History ezetimibe 10 mg tablet 10 mg PO DAILY 12/17/24 Unkn own History insulin glargine 100 unit/mL (3 10 unit subcut DAILY 0 12/17/24 Unknown History mL) subcutaneous pen (Lantus Solostar U-100 Insulin) ondansetron 4 mg disintegrating 4 mg PO Q6H PRN PRN Na usea #15 tabs 12/17/24 Unknown Rx tablet Allergy/AdvReac Type Severity Reaction Status Date / Time No Known Allergies Allergy Verified 02/03/23 10:48 Family History Mother Colon cancer Diagnosed age 83, passed age 84. Father Heart disease Hypertension Myocardial infarction CAD (coronary artery disease) Surgical History History of left hip hemiarthroplasty S/P TURP Status post placement of cardiac pacemaker H/O cardiac catheterization History of coronary artery stent placement Social History household members: family Smoking Status: Never smoker alcohol intake: never substance use type: does not use ROS ROS Narrative No fever or chills. No chest pain. No palpitations. All review of systems were negative except as mentioned above in the history of present illness and the other review of systems. Vital Signs Vital Signs Vital Signs: 12/17/24 12:16 12/17/24 13:15 12/17/24 14:00 Temperature 36.3 C L Temperature Source Oral Pulse Rate 74 60 62 Pulse Rate [Lying] Pulse Rate [Sitting (for 1 minute prior to obtaining)] Pulse Rate [Standing (for 1 minute prior to obtaining)] Respiratory Rate 18 14 22 H Blood Pressure 151/76 H 133/61 H 126/66 H Blood Pressure [Lying] Blood Pressure [Sitting (for 1 minute prior to obtaining)] Blood Pressure [Standing (for 1 minute prior to obtaining)] Blood Pressure Mean 101 85 86 Blood Pressure Mean [Lying] Blood Pressure Mean [Sitting (for 1 minute prior to obtaining)] Blood Pressure Mean [Standing (for 1 minute prior to obtaining)] Pulse Ox 98 95 96 Oxygen Delivery Method Room Air Room Air Room Air 12/17/24 15:00 12/17/24 16:06 12/17/24 17:00 Temperature Temperature Source Pulse Rate 54 L 63 Pulse Rate [Lying] 59 L Pulse Rate [Sitting (for 1 minute prior to obtaining)] 79 Pulse Rate [Standing (for 1 minute prior to obtaining)] 79 Respiratory Rate 18 19 H Blood Pressure 131/71 H 151/61 H Blood Pressure [Lying] 166/60 H Blood Pressure [Sitting (for 1 minute prior to obtaining)] 170/71 H Blood Pressure [Standing (for 1 minute prior to obtaining)] 140/78 H Blood Pressure Mean 91 91 Blood Pressure Mean [Lying] 95 Blood Pressure Mean [Sitting (for 1 minute prior to obtaining)] 104 Blood Pressure Mean [Standing (for 1 minute prior to obtaining)] 98 Pulse Ox 98 98 Oxygen Delivery Method Room Air 12/17/24 17:39 12/17/24 17:52 Temperature 36.3 C L Temperature Source Pulse Rate 63 Pulse Rate [Lying] Pulse Rate [Sitting (for 1 minute prior to obtaining)] Pulse Rate [Standing (for 1 minute prior to obtaining)] Respiratory Rate 19 H Blood Pressure 151/61 H 145/65 H Blood Pressure [Lying] Blood Pressure [Sitting (for 1 minute prior to obtaining)] Blood Pressure [Standing (for 1 minute prior to obtaining)] Blood Pressure Mean 91 91 Blood Pressure Mean [Lying] Blood Pressure Mean [Sitting (for 1 minute prior to obtaining)] Blood Pressure Mean [Standing (for 1 minute prior to obtaining)] Pulse Ox 98 94 Oxygen Delivery Method Room Air Weight Weight: 86.4 kg Body Mass Index (BMI) 28.9 Physical Exam Const alert and no apparent distress HEENT normocephalic and head/scalp atraumatic Resp normal respiratory effort, no retractions, no use of accessory muscles and clear to auscultation bilaterally Cardio regular rate, regular rhythm, S1 normal heart sound and S2 normal heart sound GI normal to inspection, nondistended, normoactive bowel sounds, soft to palpation, non-tender and non-distended Extremity normal to inspection and full ROM Neuro moves all extremities and no focal motor deficits Neuro Narrative: Xavier-Hallpike performed and patient did have reproducible left-sided dizziness on the left. Sensorium / Orientation: awake, alert, oriented to person and oriented to place Speech: speech normal Motor Exam: strength 5/5 throughout Results Lab / Micro Data Attestation: I reviewed the patient's lab results. 12/17/24 12:13 12/17/24 12:13 Labs: Laboratory Results - last 24 hr 12/17/24 12:13: WBC 12.5 H, RBC 4.83, Hgb 14.6, Hct 45.2, MCV 93.6, MCH 30.2, MCHC 32.3, RDW Std Deviation 44.2 H, RDW Coeff of Facundo 12.8, Plt Count 395, MPV 10.4, Immature Gran % (Auto) 0.500, Neut % (Auto) 63.1, Lymph % (Auto) 25.9, Rock % (Auto) 8.1, Eos % (Auto) 1.1, Baso % (Auto) 1.3 H, Absolute Neuts (auto) 7.9 H, Absolute Lymphs (auto) 3.25, Nucleated RBC % 0, Sodium 145, Potassium 3.6, Chloride 109 H, Carbon Dioxide 27.0, Anion Gap 8, BUN 35 H, Creatinine 1.86 H, Estim Creat Clear Calc 32.18, Est GFR (MDRD) Af Amer 45 L, Est GFR (MDRD) Non-Af 37 L, BUN/Creatinine Ratio 18.8, Glucose 191 H, Calcium 9.2, Total Bilirubin 0.60, Direct Bilirubin 0.22, AST 13 L, ALT 24, Alkaline Phosphatase 81, Troponin I High Sens 10, Total Protein 7.4, Albumin 3.5, Globulin 3.9, L ipase 65 L 12/17/24 15:30: Troponin I High Sens 10 EKG Initial EKG: Attestation: I personally reviewed and interpreted this EKG as follows: Prior EKG tracings: available for review EKG Rhythm Intrepretation: Sinus Rhythm Imaging Radiology Impression Chest X-Ray 12/17/24 12:55 IMPRESSION: Pulmonary venous congestion. Reading [facility] 12/17/24 16:06 IMPRESSION: Chronic right caudate lacunar infarct. No CT evidence of acute intracranial pathology. Reading Location: [id number] Assessment & Plan Assessment/Plan (1) Acute vertigo with vomiting and inability to stand: PLAN: Suspect acute BPPV given positive Xavier-Hallpike and intermittent symptoms. Symptoms, according the patient, are actually getting better. CAT scan does show a chronic right caudate stroke. No previous imaging available within [facility]. Did try to pull up [facility] but it was inaccessible at this time. Given the fact that his symptoms are improving and I do not feel additional stroke workup is necessary at this time but the treat the underlying vertigo with meclizine and therapy eval to see if he would benefit from vestibular rehab. PLAN: Plan Chronic conditions * Diabetes mellitus type 2: Continue with glargine. Cinnasil insulin. Check an A1c. Continue with glimepiride. * Chronic kidney disease stage IIIb: Creatinine is higher than it was in 2022. Will follow-up with BMP in the morning. * Hyperlipidemia: Continue atorvastatin and ezetimibe * Hypertension: Stable continue with amlodipine and chlorthalidone and lisinopril. VTE prophylaxis: Low risk given observation status and not indicated. CODE STATUS: Addressed with the patient. Patient wishes to be full code. Charges/Coding Visit Charges Inpatient E&M: 17336 Init Hosp L3
--- NOTE | 2024-12-17 19:37 | CASEMGMT ---
Care Management Face to Face with patient for initial transition planning/care coordination assessment in the ED.? This principal technical writer introduced self and role at [facility]. Patient alert and oriented. Patient willing to participate in assessment and is able to answer all questions appropriately.? Care providers, pharmacy, and demographics verified. Admitting Diagnosis:? Acute vertigo Other diagnosis history: ?HLD, hypertension, stage 3 kidney disease, diabetes type 2 PCP: ?[facility] Specialists: Arsalan Brunson Pharmacy: [facility] Insurance: [facility] Prescription Benefit: yes Living Will/HPOA: ?has LW and HPOA LNOK: son Living Arrangements: ?Lives with son and family.? 2 story home, patient independent with ADLs and IADLs Transportation: patient drives DME: ?cane, grab bar in bathroom HHC: ?[facility] HH in past SNF/Rehab: [facility] Community Resources: ?none Behavioral Health History: none Patient goals: Patient wishes to discharge home. Patient denies any further needs or concerns at this time. Disposition Plan: admission to acute; RN CM/SW to follow for discharge planning needs that may arise. Cristina Portillo, ELECTRICAL ENGINEERING TEACHER, DEVELOPMENT COORDINATOR
[2024-12-18 00:02] VITALS: BP 138/63; PULSE 61; RESP 16; TEMP 36.3; O2SAT 95
[2024-12-18] MEDS: Acetaminophen 500 MG Tablet 1000 MG PO ×2 (00:06→06:56)
[2024-12-18] MEDS: Atorvastatin Calcium 80 MG Tablet PO (00:06)
[2024-12-18 00:07] VITALS: BP 138/63; PULSE 61
[2024-12-18] MEDS: hydrALAZINE 25 MG Tablet PO ×2 (00:07→06:56)
[2024-12-18] MEDS: 0.9% Saline Lock 10 ML Syringe IV (00:11)
[2024-12-18 00:34] LABS: Bedside Glucose 186 mg/dL (74-106)
[2024-12-18 06:30] VITALS: BP 155/131; PULSE 60; RESP 16; TEMP 37.3; O2SAT 94
[2024-12-18 06:56] VITALS: BP 155/131; PULSE 60
[2024-12-18 07:47] LABS: Anion Gap 3 (5-15); BUN 30 mg/dL (7-18); Calcium,Total 8.8 mg/dL (8.5-10.1); Chloride 110 mmol/L (98-107); Creatinine, Serum 1.43 mg/dL (0.70-1.30); EST Glomerular Filtration Rate 50 mL/min (>60); Est Glom Filt Rate - Afr Amer 61 mL/min (>60); Estimated Creatinine Clearance 42.96 ml/min; Glucose 99 mg/dL (74-106); Potassium 3.3 mmol/L (3.5-5.1); Sodium Level 142 mmol/L (136-145)
[2024-12-18 08:52] VITALS: BP 140/61; PULSE 63; RESP 16; TEMP 37.2; O2SAT 94
[2024-12-18] MEDS: Ezetimibe 10 MG Tablet PO (09:00)
[2024-12-18] MEDS: Lisinopril 40 MG Tablet PO (09:00)
[2024-12-18] MEDS: Glimepiride 2 MG Tablet PO (09:00)
[2024-12-18] MEDS: Aspirin 81 MG TAB.CHEW PO (09:00)
[2024-12-18] MEDS: Chlorthalidone 50 MG Tablet 25 MG PO (09:01)
[2024-12-18] MEDS: amLODIPine 10 MG Tablet PO (09:02)
[2024-12-18] MEDS: Insulin Glargine-YFGN 100 UNIT/ML Pen 10 UNIT SC (11:05)
[2024-12-18 11:26] LABS: Bedside Glucose 218 mg/dL (74-106)
[2024-12-18 11:33] LABS: Bedside Glucose 114 mg/dL (74-106)
--- NOTE | 2024-12-18 11:52 | DCINST_ITS ---
Discharge Instructions Diet Discharge Diet: - (DASH diet) DC O2, CPAP, BIPAP needs Home O2 Discharge instructions: No Dressing / Incision Discharge Activity: Return to Normal Activity Follow Up Care Test Results: Test results from this visit will be discussed in further detail at your follow- up appointment, if applicable. Discharge Plan Admission Admit Date/Time: 12/17/24 18:00 Primary Reason for Your Visit: vertigo Attending Provider: Janiya Robert Primary Care Provider: Jose Clarke Consulting Providers: Harvey Flores Instructions Patient Instructions: BPPV, ED BPV Vertigo, ED Near-Fainting- Vagal Reaction Additional Instructions / Restrictions: DISCHARGE INSTRUCTIONS PLEASE READ *Please take this with you to your next doctors appointment* -You were found to have an old stroke on the CT scan, you are already on aspirin and a statin for your cholesterol so a new medication does not need to be called in, resume your home medications and continue your insulin at 10 units and monitor your glucose -Please call your primary care provider's office upon discharge to schedule a hospital follow up within 1 week. -For any concerning signs or symptoms please call 911 or proceed to the nearest emergency department Discharge Orders/Prescriptions Prescriptions: New ondansetron 4 mg tablet,disintegrating 4 mg PO Q6H PRN PRN (Reason: Nausea) Qty: 15 0RF Continued hydralazine 100 MG tablet 25 mg PO TID lisinopril 40 MG tablet 40 mg PO DAILY aspirin 81 mg Tablet 81 mg PO DAILY glimepiride 1 mg tablet 2 mg PO BID atorvastatin 80 mg tablet 80 mg PO QHS amlodipine 10 mg Tablet 10 mg PO DAILY 30 Days Qty: 30 0RF acetaminophen 500 mg Tablet 1,000 mg PO Q8 Qty: 0 0RF ezetimibe 10 mg tablet 10 mg PO DAILY chlorthalidone 25 mg tablet 25 mg PO DAILY insulin glargine [Lantus Solostar U-100 Insulin] 100 unit/mL (3 mL) insulin pen 10 unit SUBCUT DAILY Patient Comments: BEGIN 10 UNITS SUBCUTANEOUSLY EACH DAY AND INCREASE BY 1 UNIT EVERY OTHER DAY IF FASTING GLUCOSE LEVEL OVER 140. THEN MAINTAIN DOSE TO KEEP GLUCOSE AROUND 140 OR LOWER Referrals / Follow Up: Jose Clarke, [Primary Care Provider] - In 1 Week Disposition Disposition (needs filled in before D/C Order can be placed): Home, Self Care
--- NOTE | 2024-12-18 11:56 | PCM.DC.SUM ---
Providers Date of Admission: 12/17/24 Date of Discharge: 12/18/24 Primary Care Physician: Dr. Jose Clarke DO Reason For Visit: VERTIGO Diagnosis Discharge Diagnosis (1) Acute vertigo with vomiting and inability to stand: Status: Acute Code(s): R42 - Dizziness and giddiness; R11.10 - Vomiting, unspecified (2) History of CVA (cerebrovascular accident): Status: Acute Code(s): Z86.73 - Personal history of transient ischemic attack (TIA), and cerebral infarction without residual deficits Plan #Vertigo #DMII #Hx CVA #Hx CAD #HTN Medications at Discharge Home Medications hydralazine 100 mg tablet 25 mg PO TID BP 12/16/16 lisinopril 40 mg tablet 40 mg PO DAILY BP 06/13/20 aspirin 81 mg tablet 81 mg PO DAILY Heart 04/23/21 glimepiride 1 mg tablet 2 mg PO BID Diabetes 04/23/21 atorvastatin 80 mg tablet 80 mg PO QHS HYPERLIPIDEMIA 08/28/22 acetaminophen 500 mg tablet 1,000 mg (2 x 500 mg) PO Q8 pain #0 tabs 09/08/22 amlodipine 10 mg tablet 10 mg PO DAILY blood pressure 30 days #30 tabs 09/08/22 chlorthalidone 25 mg tablet 25 mg PO DAILY 12/17/24 ezetimibe 10 mg tablet 10 mg PO DAILY cholesterol 12/17/24 insulin glargine 100 unit/mL (3 mL) subcutaneous pen (Lantus Solostar U-100 Insulin) 10 unit subcut DAILY diabetes 12/17/24 ondansetron 4 mg disintegrating tablet 4 mg PO Q6H PRN PRN Nausea #15 tabs 12/17/24 Hospital Course Summary of Care Provided Minutes Spent on Discharge: 25 Hospital Course: Per HPI: BRIAN OTERO, is a 84 M who presents with dizziness. Dizziness began last night. Worse with changing position and patient has been unsteady due to this. Presented to the emergency room where he underwent a workup including a CAT scan that showed a chronic right caudate lacunar infarct. Patient knuckling of dizziness while at rest but does get worse when he changes position. He has never had this problem before. He has had some abdominal pain and did have some nausea and vomiting. INTERVAL HISTORY: Patient's symptoms completely resolved with no further acute intervention, on day of discharge she worked well with therapy and no therapy was recommended, suspect that this was in her ear and not stroke in nature, patient comfortable with following up with primary care physician. On day of discharge patient reports he had had a little nausea last night a little bit earlier but no further vomiting, no further dizzy episodes since 1 time feeling briefly lightheaded when initially getting up this morning that is resolved Physical Exam Narrative General: Alert, oriented, no apparent distress HEENT: Atraumatic, normocephalic Eyes: Anicteric, normal conjunctiva, extraocular movements grossly intact Neck: Supple Respiratory: Clear to auscultation bilaterally, normal respiratory effort Cardiovascular: Regular rate and rhythm GI: Soft, nontender, nondistended Extremities: No edema Musculoskeletal: Moving all extremities Neuro: No overt focal neurological deficits Skin: No rashes appreciated Psych: Cooperative Weight / BMI Weight Weight: 78.9 kg Body Mass Index (BMI) 23.6 ABG / Lab / Microbiology Data 12/17/24 12:13 12/18/24 07:11 Laboratory: Laboratory Results - last 24 hr 12/18/24 00:10: POC Glucose 186 H 12/18/24 06:54: POC Glucose 114 H 12/18/24 07:11: Sodium 142, Potassium 3.3 L, Chloride 110 H, Carbon Dioxide 29.0, Anion Gap 3 L, BUN 30 H, Creatinine 1.43 H, Estim Creat Clear Calc 42.96, Est GFR (MDRD) Af Amer 61, Est GFR (MDRD) Non-Af 50 L, BUN/Creatinine Ratio 21.0 H, Glucose 99, Calcium 8.8 12/18/24 11:04: POC Glucose 218 H Radiography Diagnostic Testing: Radiology Impression Chest X-Ray 12/17/24 12:55 IMPRESSION: Pulmonary venous congestion. [facility] Brain [facility] 12/17/24 16:06 IMPRESSION: Chronic right caudate lacunar infarct. No CT evidence of acute intracranial pathology. Reading Location: [id number] D/C Instructions Discharge Diet: - (DASH diet) DC O2, CPAP, BIPAP Needs Home O2 Discharge instructions: No Meaningful Use Info Meaningful Use Meaningful Use Diagnoses (Choose all that apply): None applicable Ischemic Stroke Statin Dosing Therapy Reference: STATIN DOSE THERAPY REFERENCE: * Patients > 75 years receive moderate or high dose statin therapy. * Patients 75 years or YOUNGER should receive HIGH intensity statin dose unless contraindicated. You will be required to document reason for non-treatment if statin daily dose does not meet guidelines. HIGH DOSE STATIN THERAPY DAILY Atorvastatin > than or = to 40 mg Rosuvastatin > than or = to 20 mg Amlodipine + Atorvastatin > than or = to 2.5/40 mg Ezetimibe + Simvastatin 10/80 mg Simvastatin 80mg Discharge Plan Admission Admit Date/Time: 12/17/24 18:00 Primary Reason for Your Visit: vertigo Attending Provider: Janiya Robert Primary Care Provider: Jose Clarke Consulting Providers: Harvey Flores Instructions Patient Instructions: BPPV, ED BPV Vertigo, ED Near-Fainting- Vagal Reaction Additional Instructions / Restrictions: DISCHARGE INSTRUCTIONS PLEASE READ *Please take this with you to your next doctors appointment* -You were found to have an old stroke on the CT scan, you are already on aspirin and a statin for your cholesterol so a new medication does not need to be called in, resume your home medications and continue your insulin at 10 units and monitor your glucose -Please call your primary care provider's office upon discharge to schedule a hospital follow up within 1 week. -For any concerning signs or symptoms please call 911 or proceed to the nearest emergency department Discharge Orders/Prescriptions Prescriptions: New ondansetron 4 mg tablet,disintegrating 4 mg PO Q6H PRN PRN (Reason: Nausea) Qty: 15 0RF Continued hydralazine 100 MG tablet 25 mg PO TID lisinopril 40 MG tablet 40 mg PO DAILY aspirin 81 mg Tablet 81 mg PO DAILY glimepiride 1 mg tablet 2 mg PO BID atorvastatin 80 mg tablet 80 mg PO QHS amlodipine 10 mg Tablet 10 mg PO DAILY 30 Days Qty: 30 0RF acetaminophen 500 mg Tablet 1,000 mg PO Q8 Qty: 0 0RF ezetimibe 10 mg tablet 10 mg PO DAILY chlorthalidone 25 mg tablet 25 mg PO DAILY insulin glargine [Lantus Solostar U-100 Insulin] 100 unit/mL (3 mL) insulin pen 10 unit SUBCUT DAILY Patient Comments: BEGIN 10 UNITS SUBCUTANEOUSLY EACH DAY AND INCREASE BY 1 UNIT EVERY OTHER DAY IF FASTING GLUCOSE LEVEL OVER 140. THEN MAINTAIN DOSE TO KEEP GLUCOSE AROUND 140 OR LOWER Referrals / Follow Up: Jose Clarke DO [Primary Care Provider] - In 1 Week Disposition Disposition (needs filled in before D/C Order can be placed): Home, Self Care Charges/Coding Visit Charges Inpatient E&M: 70345 Disch Hosp
[2024-12-18] MEDS: Potassium Chloride Oral Tablet 20 MEQ 40 MEQ PO (11:57)
[2024-12-18] MEDS: Insulin Lispro 100 UNIT/ML INSULN.PEN SC (11:58)
--- NOTE | 2024-12-18 12:39 | CASEMGMT ---
Patient has order for discharge. RN CM in to discuss needs at discharge, granddaughter at bedside. Patient denies needs or help at discharge. Patient had no further questions or concerns.
--- NOTE | 2024-12-18 12:53 | PHA.DC_ITS ---
Pharmacy [facility] has performed discharge medication reconciliation and counseling for this patient. 1. ONDANSETRON ODT 4MG PO Q6H PRN NAUSEA The patient's discharge medication list was reviewed for discrepancies and discrepancies were resolved. The patient was counseled on the following discharge medications and changes in medications for homegoing were reviewed. The Reason for Use, instructions for use, and potential side effects were reviewed for all new medications. The patient's questions regarding all of their medications were answered. The patient was able to verbally demonstrate an understanding of their discharge medications. Medications at Discharge Home Medications hydralazine 100 mg tablet 25 mg PO TID BP 12/16/16 lisinopril 40 mg tablet 40 mg PO DAILY BP 06/13/20 aspirin 81 mg tablet 81 mg PO DAILY Heart 04/23/21 glimepiride 1 mg tablet 2 mg PO BID Diabetes 04/23/21 atorvastatin 80 mg tablet 80 mg PO QHS HYPERLIPIDEMIA 08/28/22 acetaminophen 500 mg tablet 1,000 mg (2 x 500 mg) PO Q8 #0 tabs 09/08/22 amlodipine 10 mg tablet 10 mg PO DAILY 30 days #30 tabs 09/08/22 chlorthalidone 25 mg tablet 25 mg PO DAILY 12/17/24 ezetimibe 10 mg tablet 10 mg PO DAILY 12/17/24 insulin glargine 100 unit/mL (3 mL) subcutaneous pen (Lantus Solostar U-100 Insulin) 10 unit subcut DAILY 12/17/24 ondansetron 4 mg disintegrating tablet 4 mg PO Q6H PRN PRN Nausea #15 tabs 12/17/24
[2024-12-19 19:44] LABS: Hemoglobin A1c 7.6 % (<=5.6)
== END 2024-12-18 11:56 | disposition home or self-care (01) ==
LOC: ED 15:33 → PCU 19:09
PROVIDERS: Emergency Provider Emergency Medicine; PCP Family Medicine; Visit Provider Internal Medicine
DX: R42 Dizziness and giddiness (principal); E11.22 Type 2 diabetes mellitus with diabetic chronic kidney disease; Z79.4 Long term (current) use of insulin; N18.32 Chronic kidney disease, stage 3b; Z86.73 Personal history of transient ischemic attack (TIA), and cerebral infarction without residual deficits; I12.9 Hypertensive chronic kidney disease with stage 1 through stage 4 chronic kidney disease, or unspecified chronic kidney disease; E78.5 Hyperlipidemia, unspecified; I25.10 Atherosclerotic heart disease of native coronary artery without angina pectoris; Z79.84 Long term (current) use of oral hypoglycemic drugs; R11.10 Vomiting, unspecified; Z95.0 Presence of cardiac pacemaker; Z79.899 Other long term (current) drug therapy; Z79.82 Long term (current) use of aspirin
CPT/HCPCS: 36415; 70450; 71045; 80048; 80076; 82962; 83036; 83690; 84484; 85025; 93005; 96374; 96376; 97161; 99221; 99285; A4216; G0378; J2405

== ENCOUNTER 2025-04-28 09:59 | Inpatient (IN) | payer MEDICARE, SELFPAY ==
[2025-04-28] VITALS (8 sets, daily range): BP systolic 130–164; BP diastolic 51–69; PULSE 62–72; RESP 15–18; TEMP 36.4–36.8; O2SAT 94–99; BMI 25.9; BMI 23.0
--- NOTE | 2025-04-28 10:42 | RAD_ITS ---
PROCEDURE: HIP, UNI W/ PELVIS 2-3 VIEWS 04/28/2025 REASON FOR EXAM: INJURY/PAIN TECHNIQUE: HIP, UNI W/ PELVIS 2-3 VIEWS COMPARISON: None. FINDINGS: The bony pelvis is intact. There is degenerative disc disease, L4-5 and L5-S1. The SI joints appear normal. There is a normal-appearing left total hip arthroplasty. Two views of the right hip demonstrate no evidence of fracture or dislocation. The hip joint space appears unremarkable. There are vascular calcifications. RAD/HIP, UNI W/ Pelvis 2-3 Views IMPRESSION: 1. Normal-appearing right hip. 2. Other findings as noted. Reading Location: [id number]
--- OUTSIDE RECORDS SUMMARY | 2025-04-28 11:12 | XMS RPT_ITS | CCD ---
Author Organization [facility] CliniSymo Care Team Providers Care Medical Secretary Name Role Phone Osorio Acharya MD Unavailable Unavailable Osorio Acharya MD Unavailable Unavailable Eh Morton MD Unavailable [phone] KELSIE SALGUERO Attending Unavailable UNKNOWN, PROVIDER Referring Unavailable Evy, Jose Primary Care Unavailable KELSIE SALGUERO Attending Unavailable UNKNOWN, PROVIDER Referring Unavailable Evy, Jose Primary Care Unavailable UNKNOWN, PROVIDER Referring Unavailable Evy, Jose Primary Care Unavailable Arjun Callejas Attending Unavailable Jose Clarke F Primary Care Provider Evy GRADY, Jose F Primary Care Provider [phone] Evy GRADY, Jose F Primary Care Provider Evy GRADY, Jose F Primary Care Provider Dr. Jose Clarke Primary Care Provider Dr. Joesph Keane Attending Provider [phone] Dr. Jose Clarke Primary Care Provider Dr. Ayaan Quesada Emergency Provider Dr. Suma Nicolas Admit Provider Dr. Suma Nicolas Other Provider Dr. Jaziel Forde Other Provider Dr. Janiya Robert Attending Provider Dr. Janiya Robert Other Provider Dr. Aniket Costa Other Provider Dr. Rachele Wilson Attending Provider [phone] [place], Dr. Tarkio Other Provider Jose Clarke DO Primary Care Provider AngelineJose gillette DO Primary Care Provider Jose Clarke DO F Primary Care Provider Jopperi, Harvey Attending Unavailable Petrilla, Jose Primary Care Unavailable Robert, Janiya Attending Unavailable Petrilla, [place] Primary Care Unavailable Jopperi, Harvey Admitting Unavailable Jopperi, Harvey Consulting Unavailable Robert, Janiya Consulting Unavailable Jopperi, Harvey Consulting Unavailable Robert, Janiya Attending Unavailable Petrilla, [place] Primary Care Unavailable Jopperi, Harvey Admitting Unavailable RADHA TORRES Attending Unavailable PETRILLA, [place] Primary Care Unavailable PETRILLA, [place] Primary Care Unavailable PETRILLA, JOSE Attending Unavailable PETRILLA, [place] Primary Care Unavailable PETRILLA, JOSE Attending Unavailable PETRILLA, [place] Primary Care Unavailable PETRILLA, JOSE Attending Unavailable PETRILL, [place] Primary Care Unavailable PETRIA, JOSE Attending Unavailable PETRILLA, [place] Primary Care Unavailable PETRILLA, JOSE Attending Unavailable PETRILLA, IRV[place] Primary Care Unavailable Medications Current Medications Medication Drug Class(es) Dates Sig (Normalized) Sig (Original) acetaminophen 500 mg oral tablet (2 sources) Start: 09-08-2022 take 1000 mg by mouth every eight hours Acetaminophen Active 1000 MG PO EVERY 8 HOURS 0 September 08, 2022 1:00am amLODIPine 10 mg oral tablet (20 sources) Dihydropyridine Calcium Channel Leslie Start: 03-18-2023 End: 09-19-2024 take 1 tablet by mouth once daily amLODIPine (Norvasc) 10 MG tablet TAKE 1 TABLET BY MOUTH DAILY 100 tablet 2 09/19/2024 Active Start: 08-24-2022 End: 12-06-2022 take 1 tablet by mouth once daily amLODIPine (Norvasc) 10 MG tablet Take 1 tablet (10 mg) by mouth daily. 90 tablet 0 12/06/2022 Active Start: 02-18-2022 take 1 tablet by chris th once daily amLODIPine (NORVASC) 10 MG tablet Take 1 tablet by mouth daily 90 tablet 1 02/18/2022 Active Start: 02-06-2021 take 1 tablet by chris th once daily amLODIPine (NORVASC) 10 MG tablet Take 1 tablet by mouth daily 90 tablet 1 02/06/2021 Active Start: 11-03-2020 take 1 tablet by chris th once daily amLODIPine (NORVASC) 10 MG tablet Take 1 tablet by mouth daily 90 tablet 1 11/03/2020 Active Start: 08-15-2020 take 1 tablet by chris th once daily amLODIPine (NORVASC) 10 MG tablet Take 1 tablet by mouth daily 90 tablet 1 08/15/2020 Active Start: 02-14-2020 take 1 tablet by chris th once daily amLODIPine (NORVASC) 10 MG tablet Take 1 tablet by mouth daily 90 tablet 0 02/14/2020 Active Start: 11-13-2019 take 1 tablet by chris th once daily amLODIPine (NORVASC) 10 MG tablet Take 1 tablet by mouth daily 90 tablet 0 11/13/2019 Active Start: 11-23-2018 NORVASC 10 MG TABS one tablet daily AMLODIPINE BESYLATE [id number] Eh Morton MD Start: 12-16-2016 End: 09-08-2022 take 10 mg by mouth once daily Amlodipine Discontinued 10 MG PO DAILY December 16, 2016 1:00am September 08, 2022 8:26pm amoxicillin 875 mg / clavulanate 125 mg oral tablet (1 source) Penicillin-class Antibacterial Start: 04-26-2021 take 1 tablet by mouth twice daily Amoxicillin-Pot Clavulanate (Augmentin) 875-125 mg tablet Active 1 TABLET PO TWICE A DAY April 26, 2021 11:55am aspirin 81 mg delayed release oral tablet (20 sources) Platelet Aggregation Inhibitor, Nonsteroidal Anti-inflammatory Drug Start: 12-21-2024 End: 12-21-2025 take 1 tablet by mouth once daily aspirin 81 MG EC tablet Take 1 tablet (81 mg) by mouth daily. 12/21/2024 12/21/2025 Active Start: 04-23-2021 take 81 mg by mouth once daily Aspirin Active 81 MG PO DAILY April 23, 2021 12:00am Start: 06-13-2020 End: 08-13-2020 take 81 mg by mouth five times daily Aspirin Discontinued 81 MG PO DAILY June 13, 2020 12:00am August 13, 2020 12:20pm will stop 5 days prior Start: 11-23-2018 ADULT ASPIRIN REGIMEN 81 MG TBEC one tablet daily ASPIRIN [id number] Eh Morton MD atorvastatin 80 mg oral tablet (20 sources) HMG-CoA Reductase Inhibitor Start: 12-21-2024 End: 02-12-2025 atorvastatin (Lipitor) 80 MG tablet Change to each AM after Breakfast 100 tablet 2 02/12/2025 Active Start: 03-18-2023 End: 12-21-2024 take 1 tablet by mouth once daily atorvastatin (Lipitor) 80 MG tablet TAKE 1 TABLET BY MOUTH DAILY 100 tablet 2 09/19/2024 12/21/2024 Discontinued (Dose adjustment) Start: 08-24-2022 End: 12-06-2022 take 1 tablet by mouth once daily atorvastatin (Lipitor) 80 MG tablet Take 1 tablet (80 mg) by mouth daily. 90 tablet 0 12/06/2022 Active Start: 02-18-2022 take 1 tablet by chris th once daily atorvastatin (LIPITOR) 80 MG tablet Take 1 tablet by mouth daily 90 tablet 1 02/18/2022 Active Start: 02-06-2021 take 1 tablet by chris th once daily atorvastatin (LIPITOR) 80 MG tablet Take 1 tablet by mouth daily 90 tablet 1 02/06/2021 Active Start: 11-03-2020 take 1 tablet by chris th once daily atorvastatin (LIPITOR) 80 MG tablet Take 1 tablet by mouth daily 90 tablet 1 11/03/2020 Active Start: 08-15-2020 take 1 tablet by chris th once daily atorvastatin (LIPITOR) 80 MG tablet Take 1 tablet by mouth daily 90 tablet 1 08/15/2020 Active Start: 02-14-2020 take 1 tablet by chris th once daily atorvastatin (LIPITOR) 80 MG tablet Take 1 tablet by mouth daily 90 tablet 0 02/14/2020 Active Start: 11-13-2019 take 1 tablet by chris th once daily atorvastatin (LIPITOR) 80 MG tablet Take 1 tablet by mouth daily 90 tablet 0 11/13/2019 Active Start: 11-23-2018 ATORVASTATIN C ALCIUM 80 MG TABS one tablet daily ATORVASTATIN CALCIUM [id number] Eh Morton MD Start: 12-16-2016 End: 08-28-2022 take 80 mg by mouth at bedtime Atorvastatin Discontinu ed 80 MG PO AT BEDTIME December 16, 2016 1:00am August 28, 2022 6:57pm chlorthalidone 25 mg oral tablet (20 sources) Thiazide-like Diuretic Start: 03-18-2023 End: 02-12-2025 chlorthalidone (Hygroton) 25 MG tablet Change to one q AM 100 tablet 2 02/12/2025 Active Start: 12-16-2016 take 40 mg by mouth once daily Chlorthalidone Active 40 MG PO DAILY December 16, 2016 12:59pm Start: 12-16-2016 End: 12-06-2022 take 1 tablet by mouth once daily chlorthalidone (Hygroton) 25 MG tablet Take 1 tablet (25 mg) by mouth daily. 90 tablet 0 12/06/2022 Active ciclopirox 7.7 mg/ml topical cream (2 sources) Start: 03-26-2025 ciclopirox (Lo prox) 0.77 % cream Apply topically 2 times daily. 30 g 1 03/26/2025 Active Start: 01-03-2019 ciclopirox (PE NLAC) 8 % solution Apply topically nightly. 1 Bottle 2 01/03/2019 Active Continuous Blood Gluc Receiv er (FREESTYLE JOSE 14 DAY READER) NAIF (1 source) Continuous Blood Gluc Radio Equipment Repairer (FREESTYLE JOSE 14 DAY READER) NAIF by Does not apply route 0 Active Continuous Blood Gluc Receiv er (FREESTYLE JOSE READER) NAIF (1 source) Start: 12-22-2021 Continuous Blo od Gluc Radio Equipment Repairer (FREESTYLE JOSE READER) NAIF 1 each by Does not apply route every morning (before breakfast) E11.9 1 each 1 12/22/2021 Active Continuous Blood Gluc Sensor (FREESTYLE JOSE 14 DAY SENSOR) MISC (2 sources) Start: 12-22-2021 Continuous Blo od Gluc Sensor (FREESTYLE JOSE 14 DAY SENSOR) MISC 1 each by Does not apply route every morning (before breakfast) E11.9 14 each 3 12/22/2021 Active Continuous Blood Gluc Sensor (FREESTYLE JOSE 14 DAY SENSOR) MISC by Does not apply route 0 Active Continuous Glucose Radio Equipment Repairer (FreeStyle Jose [place]) device (10 sources) Start: 11-08-2024 Continuous Glu cose Radio Equipment Repairer (FreeStyle [place]) device 1 each 2 times daily as needed (check glucose levels). E11.9 1 each 11/08/2024 Active Continuous Glucose Sensor (FreeStyle Jose 3 Sensor) mis (10 sources) Start: 11-08-2024 Continuous Glu cose Sensor (FreeStyle Jose 3 Sensor) [facility] [place] each every 14 (fourteen) days. E11.9 2 each 11 11/08/2024 Active ezetimibe 10 mg oral tablet (20 sources) Dietary Cholesterol Absorption Inhibitor Start: 06-22-2023 End: 09-19-2024 take 1 tablet by mouth once daily ezetimibe (Zetia) 10 MG tablet TAKE 1 TABLET BY MOUTH DAILY 100 tablet 2 09/19/2024 Active glimepiride 1 mg oral tablet (20 sources) Sulfonylurea Start: 12-21-2024 glimepiride (Amaryl) 1 MG tablet Decrease to 1 mg every morning only 90 tablet 1 12/21/2024 Active Start: 11-13-2024 End: 12-21-2024 glimepiride (Amaryl) 2 MG ta blet Decrease to 1 every morning only 200 tablet 2 11/13/2024 12/21/2024 Discontinued (Dose adjustment) Start: 11-13-2023 End: 11-13-2024 take 1 tablet by mouth twice daily glimepiride (Amaryl) 2 MG tablet TAKE 1 TABLET BY MOUTH TWICE DAILY 200 tablet 2 09/19/2024 11/13/2024 Discontinued (Dose adjustment) Start: 02-16-2023 End: 11-13-2023 glimepiride (Amaryl) 1 MG ta blet Increase to 1 mg with breakfast and 1mg with supper 28 tablet 0 06/20/2023 11/13/2023 Discontinued Start: 08-25-2022 End: 12-06-2022 glimepiride (Amaryl) 1 MG ta blet Decrease to 1/2 tablet in the am and 1 tablet in the evening 137 tablet 0 12/06/2022 Active Start: 01-22-2022 take 1 tablet by chris th once daily before breakfast glimepiride (AMARYL) 1 MG tablet Take 1 tablet by mouth every morning (before breakfast) 90 tablet 1 01/22/2022 Active Start: 04-23-2021 take 0.5 mg by mouth once ross y Glimepiride Active 0.5 MG PO DAILY April 23, 2021 3:28pm Start: 04-23-2021 take 0.5 mg by mouth twice angela ly Glimepiride Active 0.5 MG PO TWICE A DAY April 23, 2021 12:00am Start: 02-06-2021 glimepiride (A MARYL) 1 MG tablet One half tab q AM 90 tablet 1 02/06/2021 Active Start: 10-08-2020 glimepiride (A MARYL) 1 MG tablet One half tab q AM 30 tablet 2 10/08/2020 Active hydrALAZINE hydrochloride 25 mg oral tablet (20 sources) Arteriolar Vasodilator Start: 08-25-2022 End: 09-11-2024 take 1 tablet by mouth three times daily hydrALAZINE (Apresoline) 25 MG tablet TAKE 1 TABLET BY MOUTH 3 TIMES DAILY 240 tablet 3 09/11/2024 Active Start: 02-18-2022 hydrALAZINE (A PRESOLINE) 25 MG tablet One tab TID 270 tablet 1 02/18/2022 Active Start: 02-06-2021 hydrALAZINE (A PRESOLINE) 25 MG tablet One tab TID 270 tablet 1 02/06/2021 Active Start: 08-21-2020 hydrALAZINE (A PRESOLINE) 25 MG tablet One tab TID 270 tablet 1 08/21/2020 Active Start: 05-15-2020 hydrALAZINE (A PRESOLINE) 25 MG tablet One tab q AM, 3 tabs (75 mg) each afternoon and 3 tabs (75mg) each PM 630 tablet 1 05/15/2020 Active Start: 11-13-2019 hydrALAZINE (A PRESOLINE) 25 MG tablet Take 50m q am and a total of 75 mg at 2 pm and 75mg at 10 PM 180 tablet 0 11/13/2019 Active Start: 11-13-2019 hydrALAZINE (A PRESOLINE) 50 MG tablet Take 50m q am and 75 mg total at 2 pm and 75mg total at 10 PM 360 tablet 0 11/13/2019 Active Start: 11-23-2018 HYDRALAZINE HC L 25 MG TABS one tablet daily with 50mg tablet three times daily HYDRALAZINE HCL [id number] Eh Morton MD Start: 11-23-2018 HYDRALAZINE HC L 50 MG TABS take one tablet with 25mg tablet three times daily HYDRALAZINE HCL [id number] Eh Morton MD Start: 12-16-2016 take 25 mg by mouth three times daily Hydralazine Active 25 MG PO THREE TIMES A DAY December 16, 2016 1:00am 3 ml insulin glargine 100 unt/ml pen injector (13 sources) Insulin Analog Start: 11-08-2024 End: 02-27-2025 inject 10 [IU] by subcutaneous injection once daily insulin glargine (Lantus SoloStar) 100 UNIT/ML pen Decrease to 10 units subcutaneous each day 3 mL 3 02/27/2025 Active Start: 08-24-2020 insulin glargi ne (LANTUS;BASAGLAR) 100 UNIT/ML injection pen Decrease to 10 u q am. 15 pen 0 08/24/2020 Active Start: 04-17-2020 insulin glargi ne (LANTUS;BASAGLAR) 100 UNIT/ML injection pen Decrease to 14 u q am. 15 pen 0 04/17/2020 Active Start: 11-13-2019 insulin glargi ne (LANTUS) 100 UNIT/ML injection pen Decrease to 20 U q AM and 6 U q PM 15 pen 0 11/13/2019 Active Start: 11-23-2018 LANTUS 100 UNI T/ML SOLN 26 units in the morning and 18 units in the evening INSULIN GLARGINE [id number] Eh Morton MD lisinopril 40 mg oral tablet (20 sources) Angiotensin Converting Enzyme Inhibitor Start: 03-18-2023 End: 09-19-2024 take 1 tablet by mouth once daily lisinopril 40 MG tablet TAKE 1 TABLET BY MOUTH DAILY 100 tablet 2 09/19/2024 Active Start: 06-13-2020 End: 12-06-2022 take 1 tablet by mouth in the morning lisinopril 40 MG tablet Take 1 tablet (40 mg) by mouth in the morning. 90 tablet 1 08/24/2022 12/06/2022 Discontinued (Reorder) Start: 02-14-2020 take 1 tablet by chris th once daily lisinopril (PRINIVIL;ZESTRIL) 40 MG tablet Take 1 tablet by mouth daily 90 tablet 0 02/14/2020 Active Start: 11-13-2019 [facility] l[facility]op[facility] (PRINIVIL;ZESTRIL) 40 MG tablet Take 1 tablet by mouth daily 90 tablet 0 11/13/2019 Active Start: 11-23-2018 LISINOPRIL 40 MG TABS one tablet daily LISINOPRIL [id number] Eh Morton MD melatonin 10 mg oral capsule (4 sources) Start: 10-30-2024 take 1 capsule by mouth once daily Melatonin 10 MG capsule Take 10 mg by mouth Nightly. 10/30/2024 Active nitroglycerin 0.3 mg sublingual tablet (20 sources) Nitrate Vasodilator Start: 02-02-2018 nitroglycerin (Nitrostat) 0.[address] 0.3 mg under the tongue. 02/02/2018 Active oxyCODONE hydrochloride 5 mg oral tablet (4 sources) Opioid Agonist Start: 09-01-2022 End: 09-08-2022 take 2.5-5 mg by mouth every four hours as needed Oxycodone Active 2.5 - 5 MG PO EVERY 4 HOURS NEEDED 18 September 08, 2022 microencapsulated potassium chloride 20 meq extended release oral tablet (5 sources) Start: 09-08-2022 End: 02-14-2023 potassium chloride CR (Klor-Con M20) 20 MEQ ER tablet tamsulosin hydrochloride 0.4 mg oral capsule (4 sources) alpha-Adrenergic Leslie Start: 08-15-2020 take 1 capsule by mouth once daily tamsulosin (FLOMAX) 0.4 MG capsule Take 1 capsule by mouth daily 90 capsule 1 08/15/2020 Active Start: 05-15-2020 take 1 capsule by [facility] once daily tamsulosin (FLOMAX) 0.4 MG capsule Take 1 capsule by mouth daily 90 capsule 1 05/15/2020 Active Start: 11-13-2019 take 1 capsule by [facility] once daily tamsulosin (FLOMAX) 0.4 MG capsule Take 1 capsule by mouth daily 90 capsule 0 11/13/2019 Active Start: 11-23-2018 TAMSULOSIN HCL 0.4 MG CAPS one tablet daily TAMSULOSIN HCL [id number] Eh Morton MD triamcinolone acetonide 0.001 mg/mg topical ointment (15 sources) Corticosteroid Start: 10-30-2024 End: 11-14-2024 triamcinolone (Kenalog) 0.1 % ointment Apply topically 2 times daily for 30 doses. 80 g 1 10/30/2024 11/14/2024 Active Start: 11-03-2020 triamcinolone (KENALOG) 0.1 % ointment Apply bid for one wk, then prn 45 g 0 11/03/2020 Active Start: 11-23-2018 TRIAMCINOLONE ACETONIDE 0.1 % CREA apply to affected area twice daily TRIAMCINOLONE ACETONIDE [id number] Eh Morton MD Start: 11-06-2018 triamcinolone (KENALOG) 0.1 % ointment Apply bid for one wk, then prn 45 g 0 11/06/2018 Active Completed/Discontinued Medications Medication Drug Class(es) Dates Sig (Normalized) Sig (Original) aspirin 81 mg / calcium carbonate 777 mg oral tablet (20 sources) Platelet Aggregation Inhibitor, Nonsteroidal Anti-inflammatory Drug End: 12-21-2024 take 1 tablet by mouth in the morning Aspirin-Calcium Carbonate 81-777 MG tablet Take 81 mg by mouth in the morning. 12/21/2024 Discontinued (Alternate therapy) azithromycin (ZITHROMAX) 500 mg in dextrose 5 % 250 mL IVPB (add-vantage) (1 source) Start: 04-23-2021 End: 04-23-2021 azithromycin (ZITHROMAX) 500 mg in dextrose 5 % 250 mL IVPB (add-vantage) cefdinir 300 mg oral capsule (4 sources) Cephalosporin Antibacterial Start: 09-01-2022 End: 09-08-2022 take 300 mg by mouth twice daily Cefdinir Discontinued 300 MG PO TWICE A DAY September 01, 2022 7:42pm September 08, 2022 8:26pm cefTRIAXone (ROCEPHIN) 1000 mg IVPB in NS 50ml minibag (1 source) Start: 04-23-2021 End: 04-23-2021 cefTRIAXone (ROCEPHIN) 1000 mg IVPB in NS 50ml minibag docusate sodium 50 mg / sennosides, fpc 8.6 mg oral tablet (6 sources) Start: 09-01-2022 End: 09-08-2022 take 2 tablets by mouth twice daily Sennosides-Docusat e Sodium (Stool Softener-Stimulant Laxat) 8.6-50 mg tablet Discontinued 2 TABLET PO TWICE A DAY September 01, 2022 7:42pm September 08, 2022 8:27pm empagliflozin 25 mg oral tablet (14 sources) Sodium-Glucose Cotransporter 2 Inhibitor Start: 11-05-2024 End: 11-08-2024 take 1 tablet by mouth once daily empagliflozin (Jardiance) 25 MG Take 1 tablet (25 mg) by mouth daily. 90 tablet 1 11/05/2024 11/08/2024 Discontinued (Cost of medication) Start: 09-13-2024 End: 09-13-2025 take 1 tablet by mouth once daily empagliflozin (Jardiance) 10 MG Take 1 tablet (10 mg) by mouth daily. 30 tablet 3 09/13/2024 11/08/2024 Discontinued (Cost of medication) 0.4 ml enoxaparin sodium 100 mg/ml prefilled syringe (4 sources) Low Molecular Weight Heparin Start: 09-01-2022 End: 09-08-2022 Enoxaparin Discontinued 40 MG SC DAILY September 01, 2022 7:42pm September 08, 2022 8:26pm gabapentin 300 mg oral capsule (20 sources) Anti-epileptic Agent Start: 02-07-2024 End: 11-29-2024 take 1 capsule by mouth twice daily, then take 2 capsules by mouth twice daily gabapentin (Neurontin) 300 MG capsule Take 1 capsule (300 mg) by mouth 2 times daily for 60 doses. Take with 2 Acetaminophen 500mg along with Gabapentin BID 60 capsule 2 10/30/2024 11/13/2024 Discontinued (Side effects) Start: 11-08-2023 End: 02-07-2024 take 1 capsule by mouth three times daily, then take 2 capsules by mouth twice daily gabapentin (Neurontin) 300 MG capsule Take 1 capsule (300 mg) by mouth 3 times daily for 60 doses. Take with 2 Acetaminophen 500mg along with Gabapentin BID 60 capsule 2 11/08/2023 02/07/2024 Discontinued ondansetron 4 mg disintegrating oral tablet (4 sources) Serotonin-3 Receptor Antagonist Start: 12-17-2024 End: 03-26-2025 take 1 tablet by mouth every eight hours as needed for nausea ondansetron ODT (Zofran-ODT) 4 MG disintegrating tablet Take 4 mg by mouth every 8 hours as needed for nausea. 12/17/2024 03/26/2025 Discontinued (Therapy completed) polyethylene glycol 3350 43547 mg powder for oral solution (3 sources) Osmotic Laxative End: 02-14-2023 polyethylene glycol, PEG, 3350 (Glycolax) 17 GM/SCOOP powder Take by mouth. 0 02/14/2023 Discontinued (Therapy completed) sennosides, fpc 8.6 mg oral tablet (2 sources) Start: 11-23-2018 SENNA 8.6 MG TABS one tablet daily SENNOSIDES [id number] Eh Morton MD 50 ml sodium chloride 9 mg/ml injection (2 sources) Start: 04-23-2021 End: 04-23-2021 0.9 % sodium chloride bolus Problems Active Problems Problem Classification Problem Date Documented Date Episodic/Chronic Acute and unspecified renal failure (20 sources) Chronic renal failure; Translations: [Chronic renal failure, stage 3 (moderate)] Onset: 4 Resolved: 4 12-23-2017 Chronic Acute and unspecified renal failure (4 sources) Acute renal failure syndrome; Translations: [Acute kidney failure, unspecified] 04-23-2021 Episodic Acute cerebrovascular disease (1 source) Other cerebral infarction due to occlusion or stenosis of small artery; Translations: [Cerebral artery occlusion, unspecified with cerebral infarction] 12-21-2024 Chronic Chronic kidney disease (20 sources) Chronic kidney disease stage 3B ; Translations: [Stage 3b chronic kidney disease] Onset: 2 Resolved: 4 Chronic Chronic kidney disease (4 sources) Chronic kidney disease; Translations: [Chronic kidney disease, stage 3b (HCC)] Onset: 4 Conditions associated with dizziness or vertigo (3 sources) Vertigo; Translations: [Dizziness and giddiness] Onset: 5 12-21-2024 Episodic Conditions associated with dizziness or vertigo (2 sources) Conditions associated with dizziness or vertigo Onset: 5 Conduction disorders (20 sources) Presence of cardiac pacemaker; Translations: [Cardiac pacemaker in situ] Onset: 8 12-25-2017 Chronic Coronary atherosclerosis and other heart disease (20 sources) Atherosclerotic heart disease of [place] coronary artery without angina pectoris; Translations: [Coronary arteriosclerosis] Onset: 8 12-23-2017 Chronic Coronary atherosclerosis and other heart disease (2 sources) Presence of coronary angioplasty implant and graft; Translations: [Presence of coronary angioplasty implant and graft] Onset: 9 Episodic Diabetes mellitus with complications (20 sources) Type 2 diabetes mellitus; Translations: [Type 2 diabetes mellitus with other specified complication] Onset: 8 Chronic Diabetes mellitus without complication (13 sources) Type 2 diabetes mellitus without complications; Translations: [Type 2 diabetes mellitus] Onset: 9 12-23-2017 Chronic Diabetes mellitus without complication (1 source) Acute hyperglycemia; Translations: [Hyperglycemia, unspecified] 02-03-2023 Episodic Disorders of lipid metabolism (20 sources) Mixed hyperlipidemia; Translations: [Mixed hypercholesterolemia and hypertriglyceridemia] Onset: 8 12-23-2017 Chronic E Codes: Fall (5 sources) Fall; Translations: [Unspecified fall, initial encounter] Episodic Essential hypertension (20 sources) Essential (primary) hypertension; Translations: [Essential hypertension] Onset: 9 02-06-2021 Chronic External cause codes: Machinery (2 sources) Contact with powered woodworking and forming machines, initial encounter; Translations: [Contact w powered woodworking and forming machines, init] Onset: 9 Fracture of neck of femur (hip) (6 sources) Closed fracture of hip; Translations: [Fracture of unspecified part of neck of left femur, initial encounter for closed fracture] Episodic Genitourinary symptoms and ill-defined conditions (4 sources) Acute retention of urine ; Translations: [Other retention of urine] 06-14-2020 Episodic Hyperplasia of prostate (20 sources) Benign prostatic hyperplasia without lower urinary tract symptoms; Translations: [Benign prostatic hyperplasia] Onset: 8 12-23-2017 Chronic Inflammatory conditions of male genital organs (3 sources) Balanitis; Translations: [Balanitis] Onset: 5 03-26-2025 Chronic Malaise and fatigue (3 sources) Asthenia; Translations: [Other malaise] Episodic Nausea and vomiting (1 source) Vomiting, unspecified; Translations: [Vomiting, unspecified] Onset: 5 Episodic Open wounds of extremities (3 sources) Traumatic amputation of thumb; 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, initial encounter] Onset: 9 11-23-2018 Chronic Other aftercare (2 sources) senior care (current) use of aspirin; Translations: [senior care (current) use of aspirin] Onset: 9 Episodic Other circulatory disease (1 source) Personal history of transient ischemic attack (TIA), and cerebral infarction without residual deficits; Translations: [Personal history of transient ischemic attack (TIA), and cerebral infarction without residual deficits] Onset: 5 Episodic Other diseases of bladder and urethra (2 sources) Contracture of bladder neck; 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] 08-29-2022 Chronic Other diseases of bladder and urethra (2 sources) Bladder-neck obstruction; 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] Chronic Other diseases of kidney and ureters (20 sources) Hyperparathyroidism due to renal insufficiency; Translations: [Secondary hyperparathyroidism of renal origin] Onset: 3 Resolved: 4 Chronic Other diseases of kidney and ureters (1 source) Secondary hyperparathyroidism of renal origin; Translations: [Secondary hyperparathyroidism of renal origin (HCC)] Onset: 4 Chronic Other diseases of kidney and ureters (1 source) Renal impairment; Translations: [Disorder of kidney and ureter, unspecified] Episodic Other ear and sense organ disorders (2 sources) Unspecified hearing loss, left ear; Translations: [Unspecified hearing loss, left ear] Onset: 9 Chronic Other ear and sense organ disorders (9 sources) Does use hearing aid; Translations: [Wears hearing aid in right ear] 12-19-2019 Other male genital disorders (20 sources) Male erectile dysfunction, unspecified; Translations: [Impotence of organic origin] Onset: 5 05-11-2015 Chronic Other male genital disorders (2 sources) Impotence; Translations: [ED (erectile dysfunction)] 05-11-2015 Chronic Other non-traumatic joint disorders (1 source) Hip pain; Translations: [Pain in left hip] Episodic Other skin disorders (2 sources) Disorder of hand; Translations: [Disorder of the skin and subcutaneous tissue, unspecified] 02-07-2024 Episodic Pneumonia (except that caused by tuberculosis or sexually transmitted disease) (5 sources) Infective pneumonia; Translations: [Pneumonia, unspecified organism] Episodic Residual codes; unclassified (2 sources) Family history of diabetes mellitus; Translations: [Family history of diabetes mellitus] Onset: 9 Episodic Residual codes; unclassified (2 sources) Family history of ischemic heart disease and other diseases of the circulatory system; Translations: [Family hx of ischem heart dis and oth dis of the circ sys] Onset: 9 Episodic Residual codes; unclassified (2 sources) Family history of malignant neoplasm of prostate; Translations: [Family history of malignant neoplasm of prostate] Onset: 9 Episodic Residual codes; unclassified (2 sources) Family history of malignant neoplasm of digestive organs; Translations: [Family history of malignant neoplasm of digestive organs] Onset: 9 Episodic Septicemia (except in labor) (5 sources) Sepsis; Translations: [Sepsis, unspecified organism] Episodic Spondylosis; intervertebral disc disorders; other back problems (1 source) Degeneration of lumbar intervertebral disc; Translations: [Other intervertebral disc degeneration, lumbar region] 11-08-2023 Chronic Syncope (1 source) Near syncope; Translations: [Syncope and collapse] 02-03-2023 Episodic Unclassified (1 source) Unknown / UNK(Unknown) Onset: 8 Unclassified (2 sources) Hospital Follow-up; Translations: [Hospital Follow-up] Onset: 5 Past or Other Problems Problem Classification Problem Date Documented Da te Episodic/Chronic Acquired foot deformities (20 sources) Left foot drop; Translations: [Foot drop, left foot] Onset: 02-14-2023 Episodic Allergic reactions (20 sources) Dermatitis, unspecified; Translations: [Eczema] Onset: 05-11-2015 05-11-2015 Episodic Cardiac dysrhythmias (3 sources) Bradycardia; Translations: [Bradycardia] Onset: 12-23-2017 Resolved: 12-24-2017 12-24-2017 Chronic Cardiac dysrhythmias (4 sources) Bradycardia; Translations: [Bradycardia, unspecified] Onset: 12-23-2017 Resolved: 12-24-2017 12-24-2017 Episodic E Codes: Adverse effects of medical drugs (3 sources) Adverse reaction to drug; Translations: [Adverse effect of insulin and oral hypoglycemic [antidiabetic] drugs, initial encounter] Onset: 11-13-2024 11-13-2024 Episodic Hypertension with complications and secondary hypertension (7 sources) Benign hypertensive heart disease without congestive heart failure; Translations: [Hypertensive heart disease without heart failure] Onset: 10-24-1982 Resolved: 12-26-2017 12-26-2017 Chronic Mood disorders (20 sources) Mood disorders Onset: 07-03-2024 07-03-2024 Mycoses (7 sources) Onychomycosis; Translations: [Tinea unguium] Onset: 01-03-2019 Resolved: 02-06-2021 01-03-2019 Episodic Other aftercare (4 sources) senior care (current) use of insulin; Translations: [senior care (current) use of insulin] Onset: 11-16-2018 Episodic Other ear and sense organ disorders (20 sources) Does use hearing aid; Translations: [Presence of external hearing-aid] Onset: 08-24-2022 Resolved: 02-06-2021 02-06-2021 Episodic Other gastrointestinal disorders (3 sources) Constipation; Translations: [Other constipation] Onset: 12-21-2024 12-21-2024 Episodic Other injuries and conditions due to external causes (20 sources) H/O: hip fracture; Translations: [Personal history of (healed) traumatic fracture] Onset: 08-24-2022 09-29-2022 Episodic Other nutritional; endocrine; and metabolic disorders (7 sources) Cholesterol level - finding; Translations: [Lipoprotein deficiency] Resolved: 02-06-2021 05-11-2015 Chronic Other screening for suspected conditions (not mental disorders or infectious disease) (3 sources) Patient encounter status; Translations: [Encounter for screening for malignant neoplasm of prostate] Resolved: 02-03-2017 02-03-2017 Episodic Peripheral and visceral atherosclerosis (9 sources) Atherosclerosis of renal artery; Translations: [Renal artery stenosis] Onset: 11-16-2018 Resolved: 02-06-2021 12-23-2017 Chronic Residual codes; unclassified (20 sources) Family history of prostate cancer; Translations: [Family history of malignant neoplasm of prostate] Onset: 05-11-2015 05-11-2015 Episodic Residual codes; unclassified (20 sources) Family history of cancer of colon; Translations: [Family history of malignant neoplasm of digestive organs] Onset: 05-11-2015 05-11-2015 Episodic Spondylosis; intervertebral disc disorders; other back problems (20 sources) Acute back pain with sciatica; Translations: [Lumbago with sciatica, left side] Onset: 02-14-2023 Episodic Unclassified (1 source) RIGHT EYE MACULAR PUCKER Onset: 05-10-2018 Unclassified (1 source) Problem Unclassified (4 sources) Patient encounter status; Translations: [Prostate cancer screening] Resolved: 02-03-2017 02-03-2017 Results Test Name Value Interpretation Reference Range Facility 36on 04-08-2025 36 This was sent [employer] [facility] 36 Name of caller: Holli levine Contact phone number: [phone] Relationship to Patient: patient Provider: Dr. Clarke Practice: [facility] Chief Complaint/Reason for Call: Patient states he is not having issues with his sensor. States he was notified the Freestyle Jose 3 will be discontinued. States will need a new script for the Freestyle Jose 3 Plus. Please advise. Best time of day caller can be reached: any Patient advised that office/PCP has 24-48 business hours to return their call: Yes [facility] [facility] 36 Spoke with latoya t. No issues with the sensors. Stated he picked up on 03/26/25 and that will last 28 days and will be due for a refill at that time. If patient is having issues with his sensor as in it doesn't work or fell off too soon he needs to reach out to the company [employer]. Information is listed on senor box [email or web address] [facility] 36 Name of caller: holli levine Contact phone number: [phone] Relationship to Patient: patient Provider: evy Practice: [facility] Chief Complaint/Reason for Call: Pt states is needing a new script for his glucose sensors that he uses on his arms to check his sugar. Pt states was advised he needs a new brand by his pharmacy. Please advise. Best time of day caller can be reached: AM Patient advised that office/PCP has 24-48 business hours to return their call: N/A [facility] 36on 04-01-2025 36 Message released to patient as written. Labs are stable with improved hemoglobin A1c. Continue all diabetic meds as is. CBC and renal function stable. Lipids at goal. Patient's further questions if applicable: none Were all questions from office addressed or relayed to the patient from encounter: Yes [facility] 36 Placed call to lula nt. Unable to reach them by phone to discuss lab results. Left detailed message to return call to discuss results. Please release information to patient [facility] 36 ----- Message from Evy Blount sent at 04/01/2025 7:00 AM EDT ----- ----- Message ----- From: Jose Clarke DO Sent: 03/31/2025 10:39 AM EDT To: [facility] Clinical Resident Medical Officer Labs are stable with improved hemoglobin A1c. Continue all diabetic meds as is. CBC and renal function stable. Lipids at goal. Make sure all this lab is sent to his fiber optics engineer Dr. Vines. ----- Message ----- From: Ayse Salinas Lab Results In Sent: 03/27/2025 2:38 AM EDT To: Jose Clarke DO [facility] Office Visiton 03-26-2025 Follow-up visit [id number] Sharron Joshi 1940 M Date Provider Department Center 03/26/2025 [id number] CLARKE [facility] Family History Problem Relation Age of Onset Colon cancer Mother Comments: age 82 Coronary artery disease Father Comments: [place], age 57 No Known Problems Sister Diabetes Sister Hypertension Brother Prostate cancer Brother 74 Comments: alive age 80 No Known Problems Brother Comments: in ECF, alive age 88 Prostate cancer Brother 70 Dementia Brother Comments: in ECF age 93 Family Status - Relation Status Age at Mother Father Sister Alive Sister Alive Brother Alive Brother Alive Brother Alive Level of Service:40435 [place] OFFICE/OUTPATIENT ESTABLISHED MOD MDM 30 MIN Reason for Visit and Comments: Follow-up [874119] - Med check [facility] Progress Noteon 03-26-2025 Progress Note [facility] - [address] [facility] [place] [address] Visit type: Established Patient Reason for Visit: Follow-up (Med check) Assessment / Plan: Brian was seen today for follow-up. Diagnoses and all orders for this visit: Type 2 diabetes mellitus with stage 3b chronic kidney disease, with long-term current use of insulin (HCC) (Primary) Comments: Stable, continue Lantus 10 units each day with glimepiride, Orders: - Microalbumin / creatinine, urine ratio; Future - CBC auto differential; Future - Comprehensive metabolic panel; Future - Hemoglobin A1c; Future - Lipid panel; Future - Microalbumin / creatinine, urine ratio - CBC auto differential - Comprehensive metabolic panel - Hemoglobin A1c - Lipid panel 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 Essential hypertension Comments: Stable, continue chlorthalidone, amlodipine, and hydralazine and lisinopril Hypercholesterolemia with hypertriglyceridemia Comments: Stable, continue Lipitor and Zetia Balanitis Comments: New onset, Loprox Stage 3b chronic kidney disease (HCC) Comments: Stable, continue all meds and no NSAIDs. Follow-up with nephrology Other orders - ciclopirox (Loprox) 0.77 % cream; Apply topically 2 times daily. Subjective: Patient ID: Brian Joshi is a 85 y.o. male. HPI type II diabetic on insulin with history of renal failure coronary disease and hypertension presents for checkup. Glucose levels are improved. On 10 units of insulin daily as well as glimepiride. No hypoglycemic episodes. No recent change in vision or skin. Review of Systems only new concern is some red skin changes of the shaft of his penis. Denies recent earache sore throat or cough. No exertional chest pain or dyspnea. Denies PND orthopnea claudication or edema. No use of nitro. No recent heartburn or abdominal pain. Bowels are regular. No melena or blood. No dysuria. History of chronic left foot drop that is actually improving. Able to do some golfing and yard work without difficulty. Allergies[1] Current Medications[2] Problem List[3] Social History Tobacco Use Smoking status: Never Smokeless tobacco: Never Substance Use Topics Alcohol use: No Alcohol/week: 0.0 standard drinks of alcohol Surgical History[4] Family History[5] Objective: BP 121/55 (BP Location: Right arm, Patient Position: Sitting, BP Cuff Size: Large adult) Pulse 76 Temp 37.1 ?C (98.7 ?F) (Temporal) Ht 6' (1.829 m) Wt 178 lb (80.7 kg) SpO2 98% BMI 24.14 kg/m? Physical Exam The physical exam is generally normal. Patient appears well, alert and oriented x 3, pleasant, cooperative. Vitals are as noted. Neck supple, no abnormal adenopathy, thyroid lesions or masses.. No carotid bruits. lungs are clear to auscultation. Heart is regular, without murmurs, gallops or ectopy. Abdomen is soft, non tender, without masses, hepatosplenomegaly, or bruits. Normal BS evident. Extremities are normal without edema. Peripheral pulses are fair. No worrisome skin lesions. Left foot eversion and dorsiflexion is improved. Mild balanitis of his penis. Could not retract the foreskin. No worrisome skin lesions. [1] No Known Allergies [2] Current Outpatient Medications: amLODIPine (Norvasc) 10 MG tablet, TAKE 1 TABLET BY MOUTH DAILY, Disp: 100 tablet, Rfl: 2 aspirin 81 MG EC tablet, Take 1 tablet (81 mg) by mouth daily., Disp: , Rfl: atorvastatin (Lipitor) 80 MG tablet, Change to each AM after Breakfast, Disp: 100 tablet, Rfl: 2 chlorthalidone (Hygroton) 25 MG tablet, Change to one q AM, Disp: 100 tablet, Rfl: 2 Continuous Glucose Radio Equipment Repairer (FreeStyle Jose 3 [place]) device, 1 each 2 times daily as needed (check glucose levels). E11.9, Disp: 1 each, Rfl: 0 Continuous Glucose Sensor (FreeStyle Jose 3 Sensor) misc, 1 each every 14 (fourteen) days. E11.9, Disp: 2 each, Rfl: 11 ezetimibe (Zetia) 10 MG tablet, TAKE 1 TABLET BY MOUTH DAILY, Disp: 100 tablet, Rfl: 2 glimepiride (Amaryl) 1 MG tablet, Decrease to 1 mg every morning only, Disp: 90 tablet, Rfl: 1 hydrALAZINE (Apresoline) 25 MG tablet, TAKE 1 TABLET BY MOUTH 3 TIMES DAILY, Disp: 240 tablet, Rfl: 3 insulin glargine (Lantus SoloStar) 100 UNIT/ML pen, Decrease to 10 units subcutaneous each day, Disp: 3 mL, Rfl: 3 lisinopril 40 MG tablet, TAKE 1 TABLET BY MOUTH DAILY, Disp: 100 tablet, Rfl: 2 Melatonin 10 MG capsule, Take 10 mg by mouth Nightly., Disp: , Rfl: ciclopirox (Loprox) 0.77 % cream, Apply topically 2 times daily., Disp: 30 g, Rfl: 1 Glucose Blood (Blood Glucose Test) strip, E11.9 Test 2 times a day & as needed for symptoms of irregular blood glucose. Dispense sufficient amount for indicated testing frequency plus additional to accommodate PRN testing needs., Disp: , Rfl: glucose blood (FREESTYLE LITE) test strip, 1 each., Disp: , Rfl: gluc (more content not included)... [facility] 02-28-2025 36 Talked to patient an d relayed message and he verbalized understanding. [facility] 02-27-2025 36 Name of caller: Holli levine Contact phone number: [phone] Relationship to Patient: patient Provider: Dr Clarke Practice: [facility] Chief Complaint/Reason for Call: Patient stated he is upset as he went to [facility] to get his insulin glargine (Lantus SoloStar) 100 UNIT/ML pen and was told the medication was cancelled. Patient wanted pal to call [facility] and they confirmed this was cancelled on 11/13/24 and they will need a new script if this is something the patient is to still be taking. Patient is requesting a call back if this is something he should no longer be taking. Please advise. Thank you. Best time of day caller can be reached: any Patient advised that office/PCP has 24-48 business hours to return their call: No [facility] 02-12-2025 36 Recent Visits Date Type Provider Dept 12/21/24 Office Visit Jose Clarke, [facility] 10/30/24 Office Visit Jose Clarke, [facility] 07/03/24 Office Visit Jose Clarke DO [facility] Showing recent visits within past 365 days and meeting all other requirements Future Appointments Date Type Provider Dept 03/26/25 Appointment Jose Clarke DO [facility] Showing future appointments within next 90 days and meeting all other requirements Requested Prescriptions Pending Prescriptions Disp Refills atorvastatin (Lipitor) 80 MG tablet 100 tablet 2 Sig: Change to each AM after Breakfast chlorthalidone (Hygroton) 25 MG tablet 100 tablet 2 Sig: Change to one q AM Provider: Jose Clarke DO Verified pharmacy: yes Verified day(s) supplied: yes Verified refill(s) needed (previous prescription showing no refills in chart): Yes Have you received any controlled medications from any other provider? N/A Overdue for visit: No If yes - patient scheduled? N/A Most recent labs completed in chart? N/A None [facility] 36on 02-11-2025 36 Name of caller: Holli levine Contact phone number: [phone] Relationship to Patient: patient Provider: Evy Practice: [facility] Chief Complaint/Reason for Call: Patient states he needs both medications chlorthalidone (Hygroton) 25 MG tablet ,atorvastatin (Lipitor) 80 MG tablet sent to pharmacy [facility] - [address] states they are saying there is no refills. Please advise patient when done needs as soon as possible. Best time of day caller can be reached: any Patient advised that office/PCP has 24-48 business hours to return their call: Yes [facility] Office Visiton 12-21-2024 Follow-up visit [id number] Sharron Joshi 1940 [facility] Provider Department Center 12/21/2024 [id number] CLARKE [facility] Family History Problem Relation Age of Onset Colon cancer Mother Comments: age 82 Coronary artery disease Father Comments: [place], age 57 No Known Problems Sister Diabetes Sister Hypertension Brother Prostate cancer Brother 74 Comments: alive age 80 No Known Problems Brother Comments: in ECF, alive age 88 Prostate cancer Brother 70 Dementia Brother Comments: in ECF age 93 Family Status - Relation Status Age at Mother Father Sister Alive Sister Alive Brother Alive Brother Alive Brother Alive Level of Service:13512 [place] OFFICE/OUTPATIENT ESTABLISHED MOD MDM 30 MIN Reason for Visit and Comments: Hospital Follow-up [832] - TOC_ dizzy and nausea Constipation [638109] - Hasn't went in 4 days Normal [facility] Progress Noteon 12-21-2024 Progress Note [facility] - [address] [facility] [address] Visit type: Established Patient Reason for Visit: Hospital Follow-up (TOC_ dizzy and nausea ) and Constipation (Hasn't went in 4 days ) Assessment / Plan: Brian was seen today for hospital follow-up and constipation. Diagnoses and all orders for this visit: Vertigo (Primary) Comments: Resolved, Essential hypertension Comments: Stable, continue lisinopril, amlodipine, hydralazine and chlorthalidone Stage 3b chronic kidney disease (HCC) 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 Hypercholesterolemia with hypertriglyceridemia Comments: Stable but due to insomnia change Lipitor to every morning Right thalamic stroke (HCC) Comments: Remote, asymptomatic, continue aspirin and other meds Hypoglycemic event due to diabetes (HCC) Comments: Reviewed meds in length, decrease glimepiride to 1 mg every morning only. Decrease insulin to 10 units/day. Call with update in 2 weeks Other constipation Comments: New onset to Dulcolax and take mag citrate 4 ounces no better. More water and avoidance measures discussed Other orders - glimepiride (Amaryl) 1 MG tablet; Decrease to 1 mg every morning only - aspirin 81 MG EC tablet; Take 1 tablet (81 mg) by mouth daily. - atorvastatin (Lipitor) 80 MG tablet; Change to each AM after Breakfast - chlorthalidone (Hygroton) 25 MG tablet; Change to one q AM Subjective: Patient ID: Brian Joshi is a 84 y.o. male. HPI better controlled type II diabetic now back on insulin presents after going to the ER and admitted for dizziness. Extensive workup resulted in a diagnosis of vertigo. Given Zofran and sent home on meclizine but has not had to take any. He feels much better. CT showed possible old right thalamic CVA. He denies history of diplopia, scotomas, or unilateral numbness or this of the face arm or legs. He does states he perhaps his glucose level was low. Time that EMS evaluation glucose was 190. But having episodes in the 70s and 80s. Of note he still taking glimepiride twice a day. Insulin went from 14 units back to 10 units and he feels better. He is having some constipation of the last 4 days. No chronic issues. No vomiting or abdominal pain. No mucus blood or diarrhea. Review of Systems no headache or diplopia. No numbness of the face arm or legs. No chest pain or palpitation. Pacemaker update stable. Feeling better. 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 He denies heartburn or indigestion. No vomiting or diarrhea. No change in urine flow. He feels back to his normal self. No Known Allergies Current Outpatient Medications on File Prior to Visit Medication Sig Dispense Refill amLODIPine (Norvasc) 10 MG tablet TAKE 1 TABLET BY MOUTH DAILY 100 tablet 2 ezetimibe (Zetia) 10 MG tablet TAKE 1 TABLET BY MOUTH DAILY 100 tablet 2 hydrALAZINE (Apresoline) 25 MG tablet TAKE 1 TABLET BY MOUTH 3 TIMES DAILY 240 tablet 3 insulin glargine (Lantus SoloStar) 100 UNIT/ML pen Decrease to 10 units subcutaneous each day and increase by 1 unit every other day if fasting glucose level over 140. Then maintain that total dosage once glucose levels are generally running around 140 or lower 3 mL 3 lisinopril 40 MG tablet TAKE 1 TABLET BY MOUTH DAILY 100 tablet 2 Melatonin 10 MG capsule Take 10 mg by mouth Nightly. ondansetron ODT (Zofran-ODT) 4 MG disintegrating tablet Take 4 mg by mouth every 8 hours as needed for nausea. [DISCONTINUED] Aspirin-Calcium Carbonate 81-777 MG tablet Take 81 mg by mouth in the morning. [DISCONTINUED] atorvastatin (Lipitor) 80 MG tablet TAKE 1 TABLET BY MOUTH DAILY 100 tablet 2 [DISCONTINUED] chlorthalidone (Hygroton) 25 MG tablet TAKE 1 TABLET BY MOUTH DAILY 100 tablet 2 [DISCONTINUED] glimepiride (Amaryl) 2 MG tablet Decrease to 1 every morning only 200 tablet 2 Continuous Glucose Radio Equipment Repairer (FreeStyle Jose 3 [place]) device 1 each 2 times daily as needed (check glucose levels). E11.9 1 each 0 Continuous Glucose Sensor (FreeStyle Jose 3 Sensor) misc 1 each every 14 (fourteen) days. E11.9 2 each 11 Glucose Blood (Blood Glucose Test) strip E11.9 Test 2 times a day & as needed for symptoms of irregular blood glucose. Dispense sufficient amount for indicated testing frequency plus additional to accommodate PRN testing needs. glucose blood (FREESTYLE LITE) test strip 1 each. glucose blood test strip 1 each by Other route 2 times daily. Use as instructed 100 each 12 insulin pen needle 31G X 8 mm misc E11.9 Use to inject 1-4 times daily as directed. 100 each 11 Lancets 1 each by Other route 2 times daily. 100 each 3 nitroglycerin (Nitrostat) 0.[address] 0.3 mg under the tongue. No current facility-administered medications on file prior to visit. Patient Active Problem List Diagnosis Essential hype (more content not included)... Normal [facility] Hemoglobin A1con 12-19-2024 HbA1c (Bld) [Mass fraction] 7.6 % Normal <=5.6 [facility] Comment on above: Performed By: #### L 500.2500, L501.9985 #### [facility] [address] [place], [address] Basic Metabolic Profile (BMP )on 12-18-2024 BUN/CRE 21.0 RATIO High 10-20 [facility] Comment on above: Performed By: #### L 500.2500, L501.9985 #### [facility] [address] [place], [address] CA,Total 8.8 mg/dL Normal 8.5-10.1 [facility] Comment on above: Performed By: #### L 500.2500, L501.9985 #### [facility] [address] [place], [address] Chloride [Moles/Vol] 110 mmol/L High 98-107 [facility] Comment on above: Performed By: #### L 500.2500, L501.9985 #### [facility] [address] [place], [address] CO2 [Moles/Vol] 29.0 mmol/L Normal 21.0-32.0 [facility] Comment on above: Performed By: #### L 500.2500, L501.9985 #### [facility] [address] [place], [address] Creatinine [Mass/Vol] 1.43 mg/dL High 0.70-1.30 [facility] Comment on above: Result Comment: The validity of the calculated GFR GFRAA in patients over 70 years has not been determined. Clinical correlation is essential. Performed By: #### L 500.2500, L501.9985 #### [facility] [address] [place], [address] ECRCL 42.96 ml/min Normal [facility] Comment on above: Performed By: #### L 500.2500, L501.9985 #### [facility] [address] [place], [address] EST GFR - AA 61 mL/min Normal >60 [facility] Comment on above: Result Comment: Afri can Zambian GFR Calc Performed By: #### L 500.2500, L501.9985 #### [facility] [address] [place], [address] GAP 3 Low 5-15 [facility] Comment on above: Performed By: #### L 500.2500, L501.9985 #### [facility] [address] [place], [address] GFR/1.73 sq M.predicted among non-blacks MDRD (S/P/Bld) [Vol rate/Area] 50 mL/min/{1.73_m2} Low >60 [facility] Comment on above: Result Comment: Non- GFR Calc Performed By: #### L 500.2500, L501.9985 #### [facility] [address] [place], [address] Glucose [Mass/Vol] 99 mg/dL Normal 74-106 [facility] Comment on above: Performed By: #### L 500.2500, L501.9985 #### [facility] [address] [place], [address] Potassium [Moles/Vol] 3.3 mmol/L Low 3.5-5.1 [facility] Comment on above: Performed By: #### L 500.2500, L501.9985 #### [facility] [address] [place], [address] Sodium [Moles/Vol] 142 mmol/L Normal 136-145 [facility] Comment on above: Performed By: #### L 500.2500, L501.9985 #### [facility] [address] [place], [address] Urea nitrogen [Mass/Vol] 30 mg/dL High 7-18 [facility] Comment on above: Performed By: #### L 500.2500, L501.9985 #### [facility] [address] [place], [address] Bedside Glucoseon 12-18-2024 FINGERSTICK GLU 114 mg/dL High 74-106 [facility] Comment on above: Result Comment: BUCK GEMENT OF PATIENT CARE PER NURSING PROTOCOL Performed By: #### L 501.080 #### [facility] [address] [place], [address] FINGERSTICK GLU 218 mg/dL High 74-106 [facility] Comment on above: Result Comment: BUCK GEMENT OF PATIENT CARE PER NURSING PROTOCOL Performed By: #### L 501.080 #### [facility] [address] [place], [address] FINGERSTICK GLU 186 mg/dL High 74-106 [facility] Comment on above: Result Comment: BUCK GEMENT OF PATIENT CARE PER NURSING PROTOCOL Performed By: #### L 501.080 #### [facility] [address] [place], [address] Discharge Instructionon 11-25 Discharge Instruction [facility] Medical Records Department [address] [place] [address] Instructions for Home/Discharge Instructions 12/18/24 1152 MR#: [id number] Acct: [id number] Name: BRIAN JOSHI Rep #: [id number] : 1940 84 From: Janiya Robert MD PCP: Dr. Jose Clarke, DO Status:ADM DIEGO Discharge Instructions Diet Discharge Diet: - (DASH diet) DC O2, CPAP, BIPAP needs Home O2 Discharge instructions: No Dressing / Incision Discharge Activity: Return to Normal Activity Follow Up Care Test Results: Test results from this visit will be discussed in further detail at your follow-up appointment, if applicable. Discharge Plan Admission Admit Date/Time: 12/17/24 18:00 Primary Reason for Your Visit: vertigo Attending Provider: Janiya Robert Primary Care Provider: Jose Clarke Consulting Providers: Harvey Flores Instructions Patient Instructions: BPPV, ED BPV Vertigo, ED Near-Fainting- Vagal Reaction Additional Instructions / Restrictions: DISCHARGE INSTRUCTIONS PLEASE READ *Please take this with you to your next doctors appointment* -You were found to have an old stroke on the CT scan, you are already on aspirin and a statin for your cholesterol so a new medication does not need to be called in, resume your home medications and continue your insulin at 10 units and monitor your glucose -Please call your primary care provider's office upon discharge to schedule a hospital follow up within 1 week. -For any concerning signs or symptoms please call 911 or proceed to the nearest emergency department Discharge Orders/Prescriptions Prescriptions: New ondansetron 4 mg tablet,disintegrating 4 mg PO Q6H PRN PRN (Reason: Nausea) Qty: 15 0RF Continued hydralazine 100 MG tablet 25 mg PO TID lisinopril 40 MG tablet 40 mg PO DAILY aspirin 81 mg Tablet 81 mg PO DAILY glimepiride 1 mg tablet 2 mg PO BID atorvastatin 80 mg tablet 80 mg PO QHS amlodipine 10 mg Tablet 10 mg PO DAILY 30 Days Qty: 30 0RF acetaminophen 500 mg Tablet 1,000 mg PO Q8 Qty: 0 0RF ezetimibe 10 mg tablet 10 mg PO DAILY chlorthalidone 25 mg tablet 25 mg PO DAILY insulin glargine [Lantus Solostar U-100 Insulin] 100 unit/mL (3 mL) insulin pen 10 unit SUBCUT DAILY Patient Comments: BEGIN 10 UNITS SUBCUTANEOUSLY EACH DAY AND INCREASE BY 1 UNIT EVERY OTHER DAY IF FASTING GLUCOSE LEVEL OVER 140. THEN MAINTAIN DOSE TO KEEP GLUCOSE AROUND 140 OR LOWER Referrals / Follow Up: Jose Clarke DO [Primary Care Provider] - In 1 Week Disposition Disposition (needs filled in before D/C Order can be placed): Home, Self Care 12/18/24 1156 Janiya Robert MD CC: Dr. Harvey Flores DO; Dr. Jose Clarke DO Signed Normal [facility] 12 Lead EKGon 12-17-2024 12 Lead EKG [facility] Cardiovascular Services [address] [place] [address] 12 Lead EKG 12/17/24 1213 MR#: [id number] Acct: [id number] Name: BRIAN JOSHI Rep #: [id number] : 1940 84 From: Vishal Shannon MD Attending Dr: Dr. Janiya Robert MD Status: DIS DIEGO Ordering Dr: Mk Terry DO Date: 12/17/24 Location: [facility] Sex: M C Admitted: 12/17/24 Test Reason : CP Blood Pressure : */* mmHG Vent. Rate : 77 BPM Atrial Rate : 77 BPM P-R Int : 158 ms QRS Dur : 88 ms QT Int : 402 ms P-R-T Axes : 45 18 41 degrees QTcB Int : 454 ms Sinus rhythm with frequent ventricular-paced complexes and Premature atrial complexes Increased R/S ratio in V1, consider early transition or posterior infarct Abnormal ECG Confirmed by Vishal Shannon ([id number]), index editor RADHA CAMACHO ([id number]) on 12/19/2024 7:59:59 AM Referred By: Confirmed By: Vishal Shannon 12/19/24 0800 Date Vishal Shannon MD CC: Dr. Mk Terry DO; Dr. Jose Clarke DO; Dr. Janiya Robert MD Signed [facility] 36on 12-17-2024 36 Triage message luis bundy with clinical staff. Patient appointment confirmed. PCP will assess at appointment visit. [facility] 36 S: Patient spoke wit [facility] nurse regarding dizziness. B: Onset of symptoms started last night. A: Dizziness, nausea, lightheaded, eating and drinking normally, has not missed any meds IDDM, can walk around without holding on to anything if he is careful and currently feeling like he is going to pass out now, current BS 230, normal BS 140's, patient's son is with him. R: Instructed to be seen in the ER for eval. Patient understands care advice. No further needs at this time. Patient instructed to call back with new or worsening symptoms. Reason for Disposition Blood glucose 240 - 300 mg/dL (13.3 - 16.7 mmol/L) SEVERE dizziness (e.g., unable to stand, requires support to walk, feels like passing out now) Protocols used: Diabetes - High Blood Qctyk-AHZQY-NB, Jnsgjfjeg-ELAMV-MW [facility] Basic Metabolic Profile (BMP )on 12-17-2024 BUN/CRE 18.8 RATIO Normal 10-20 [facility] Comment on above: Performed By: #### L 500.2500, L500.3400, L501.5425, L501.2450 #### [facility] [address] [facility] [address] [place],Total 9.2 mg/dL Normal 8.5-10.1 [facility] Comment on above: Performed By: #### L 500.2500, L500.3400, L501.5425, L501.2450 #### [facility] [address] [place], [address] Chloride [Moles/Vol] 109 mmol/L High 98-107 [facility] Comment on above: Performed By: #### L 500.2500, L500.3400, L501.5425, L501.2450 #### [facility] [address] [place], [address] CO2 [Moles/Vol] 27.0 mmol/L Normal 21.0-32.0 [facility] Comment on above: Performed By: #### L 500.2500, L500.3400, L501.5425, L501.2450 #### [facility] [address] [place], [address] Creatinine [Mass/Vol] 1.86 mg/dL High 0.70-1.30 [facility] Comment on above: Result Comment: The validity of the calculated GFR GFRAA in patients over 70 years has not been determined. Clinical correlation is essential. Performed By: #### L 500.2500, L500.3400, L501.5425, L501.2450 #### [facility] [address] [place], [address] ECRCL 32.18 ml/min Normal [facility] Comment on above: Performed By: #### L 500.2500, L500.3400, L501.5425, L501.2450 #### [facility] [address] [place], [address] EST GFR - AA 45 mL/min Low >60 [facility] Comment on above: Result Comment: Afri can [place]ian GFR Calc Performed By: #### L 500.2500, L500.3400, L501.5425, L501.2450 #### [facility] [address] [place], [address] GAP 8 Normal 5-15 [facility] Comment on above: Performed By: #### L 500.2500, L500.3400, L501.5425, L501.2450 #### [facility] [address] [place], [address] GFR/1.73 sq M.predicted among non-blacks MDRD (S/P/Bld) [Vol rate/Area] 37 mL/min/{1.73_m2} Low >60 [facility] Comment on above: Result Comment: Non- GFR Calc Performed By: #### L 500.2500, L500.3400, L501.5425, L501.2450 #### [facility] [address] [place], [address] Glucose [Mass/Vol] 191 mg/dL High 74-106 [facility] Comment on above: Result Comment: Fast ing Glucose result greater than or equal to 126 mg/dL suggests DIABETES MELLITUS per A.D.A. criteria. Performed By: #### L 500.2500, L500.3400, L501.5425, L501.2450 #### [facility] [address] [place], [address] Potassium [Moles/Vol] 3.6 mmol/L Normal 3.5-5.1 [facility] Comment on above: Performed By: #### L 500.2500, L500.3400, L501.5425, L501.2450 #### [facility] [address] [place], [address] Sodium [Moles/Vol] 145 mmol/L Normal 136-145 [facility] Comment on above: Performed By: #### L 500.2500, L500.3400, L501.5425, L501.2450 #### [facility] [address] [place], [address] Urea nitrogen [Mass/Vol] 35 mg/dL High 7-18 [facility] Comment on above: Performed By: #### L 500.2500, L500.3400, L501.5425, L501.2450 #### [facility] [address] [place], [address] Brain/Head without Contrasto n 12-17-2024 Brain/Head without Contrast [facility] Imaging Services [address] [place] [address] Brain/Head without Contrast MR#: [id number] Acct: [id number] Name: BRIAN JOSHI Rep #: [id number] : 1940 M 84 From: Danii call MD PCP: Dr. Jose Clarke DO Status: REG ER Study: Brain/Head without Contrast Date of Exam: 11/25 02/15 Exam# [id number] Ordering Dr: Mk Terry DO EXAM: BRAIN/HEAD WITHOUT CONTRAST CLINICAL HISTORY: Hypertension. COMPARISON: None. TECHNIQUE: Noncontrast images of the head with multiplanar reconstructions. Dose reduction techniques were used including intermediate exposure control (AEC),iterative reconstruction technique, and/or mA and/or KV dose adjustments based on patient's size. FINDINGS: CT HEAD FINDINGS: No acute intracranial hemorrhage, mass, mass effect, midline shift or pathologic extra-axial fluid collection. Chronic right caudate lacunar infarct. No hydrocephalus. Preservation of the blas- white parenchymal differentiation. There are mild, diffuse, symmetrical, periventricular and subcortical white matter lucencies, a nonspecific finding, which may represent sequela of small vessel disease in a patient of this age. Vascular calcifications are noted. The orbits are symmetrically unremarkable. Visualized paranasal sinuses and mastoid air cells are clear. The calvarium is grossly intact. CT/Brain/Head without Contrast IMPRESSION: Chronic right caudate lacunar infarct. No CT evidence of acute intracranial pathology. Reading Location: [facility] CC: Dr. Mk Terry DO; Dr. Jose Clarke DO Senior Occupational Therapist: Signed Normal [facility] CBC W/Diff, Automatedon 11-25 Absolute Lymph 3.25 X10 3/uL Normal 0.83-4.51 [facility] Comment on above: Performed By: #### L 100.0100 #### [facility] [address] [place], [place], [address] Absolute Neut 7.9 X10 3/uL High 2.0-7.7 [facility] Comment on above: Performed By: #### L 100.0100 #### [facility] [address], [address] Basophils/100 WBC (Bld) 1.3 % High 0-1 [facility] Comment on above: Performed By: #### L 100.0100 #### [facility] [address] [place], [address] Eosinophils/100 WBC (Bld) 1.1 % Normal 0-5 [facility] Comment on above: Performed By: #### L 100.0100 #### [facility] [address] [place], [address] Erythrocyte distribution width (RBC) [Ratio] 12.8 % Normal 11.6-14.6 [facility] Comment on above: Performed By: #### L 100.0100 #### [facility] [address], [address] Hematocrit (Bld) [Volume fraction] 45.2 % Normal 40-54 [facility] Comment on above: Performed By: #### L 100.0100 #### [facility] [address], [address] Hemoglobin (Bld) [Mass/Vol] 14.6 g/dL Normal 13.0-16.5 [facility] Comment on above: Performed By: #### L 100.0100 #### [facility] [address], [address] IG% 0.500 Normal 0.0-0.9 [facility] Comment on above: Result Comment: IG% - Immature Granulocytes (promyelocytes, myelocytes and metamyelocytes) > 1% indicates that a LEFT SHIFT is Present. Performed By: #### L 100.0100 #### [facility] [address] [place], [address] Lymphocytes/100 WBC (Bld) 25.9 % Normal 19-41 [facility] Comment on above: Performed By: #### L 100.0100 #### [facility] [address] [place], [address] MCH (RBC) [Entitic mass] 30.2 pg Normal 27.0-32.0 [facility] Comment on above: Performed By: #### L 100.0100 #### [facility] [address] [place], [address] MCHC (RBC) [Mass/Vol] 32.3 g/dL Normal 32-36 [facility] Comment on above: Performed By: #### L 100.0100 #### [facility] [address] [place], [address] MCV (RBC) [Entitic vol] 93.6 fL Normal 80-94 [facility] Comment on above: Performed By: #### L 100.0100 #### [facility] [address] [place], [address] Monocytes/100 WBC (Bld) 8.1 % Normal 0-10 [facility] Comment on above: Performed By: #### L 100.0100 #### [facility] [address] [place], [address] Neutrophils/100 WBC (Bld) 63.1 % Normal 47-70 [facility] Comment on above: Performed By: #### L 100.0100 #### [facility] [address] [place], [address] Nucleated RBC (Bld) [#/Vol] 0 10*3/uL Normal 0-5 [facility] Comment on above: Performed By: #### L 100.0100 #### [facility] [address] [place], [address] Platelet mean volume (Bld) [Entitic vol] 10.4 fL Normal 6.2-12.0 [facility] Comment on above: Performed By: #### L 100.0100 #### [facility] [address] [place], [address] Platelets (Bld) [#/Vol] 395 10*3/uL Normal 150-450 [facility] Comment on above: Performed By: #### L 100.0100 #### [facility] [address] [place], [address] RBC (Bld) [#/Vol] 4.83 10*6/uL Normal 4.6-6.2 [facility] Comment on above: Performed By: #### L 100.0100 #### [facility] [address], [address] RDW SD 44.2 fl High 35.1-43.9 [facility] Comment on above: Performed By: #### L 100.0100 #### [facility] [address] [place], [address] WBC (Bld) [#/Vol] 12.5 10*3/uL High 4.4-11.0 [facility] Comment on above: Performed By: #### L 100.0100 #### [facility] [address] [place], [address] Chest 1 View (Portable)on Chest 1 View (Portable) [facility] Imaging Services [address] [place] [address] Chest 1 View (Portable) MR#: [id number] Acct: [id number] Name: BRIAN JOSHI Julieta Rep #: [id number] : 1940 M 84 From: Yoni Moreno MD PCP: Dr. Jose Clarke DO Status: PRE ER Study: Chest 1 View (Portable) Date of Exam: 12/17/24 Exam# [id number] Ordering Dr: Mk Terry DO EXAM: XR Chest, 1 View CLINICAL INDICATION: TECHNIQUE: Frontal view of the chest. COMPARISON: No relevant prior studies available. FINDINGS: LUNGS AND PLEURAL SPACES: Pulmonary venous congestion. No consolidation. No pneumothorax. HEART: Unremarkable. No cardiomegaly. MEDIASTINUM: Unremarkable. Normal mediastinal contour. BONES/JOINTS: Unremarkable. No acute fracture. TUBES, LINES AND DEVICES: Left-sided cardiac pacemaker. RAD/Chest 1 View (Portable) IMPRESSION: Pulmonary venous congestion. Reading Location: [facility] CC: Dr. Mk Terry DO; Dr. Jose Clarke DO Senior Occupational Therapist: Signed Normal [facility] Emergency Department Summary on 12-17-2024 Emergency Department Summary [facility] Medical Records Department [address] [place] [address] Emergency Department Summary 12/17/24 MR#: [id number] Acct: [id number] Name: BRIAN JOSHI Rep #: [id number] : 1940 84 From: Mk Terry DO PCP: Dr. Jose Clarke DO Status:DIS DIEGO Location: [place] [id number] What to do if you have Problems For any increased pain, shortness of breath, bleeding, nausea or vomiting, chest pain, or any unexpected problems, contact your Primary Care Provider. Call [facility] ([phone]) or report to the closest Emergency Room. Call 911 if necessary. 12/21/24 1010 Cosigner Signature (if applicable): 12/22/24 0656 CC: Dr. Jose Clarke DO Signed Normal [facility] Emergency Department Summary [facility] Medical Records Department [address] [place] [address] Emergency Department Summary 12/17/24 MR#: [id number] Acct: [id number] Name: BRIAN JOSHI Rep #: [id number] : 1940 84 From: Mk Terry DO PCP: Dr. Jose Clarke DO Status:REG ER Location: ED ADDENDUM by Dr. Ollie Beltran DO on 12/17/[address] Flores Came down and evaluated the patient did not discussed with me however placed admission orders and. Nursing staff then requested me to place the orders and which I did. Patient was notified that he be admitted all question concerns answered 12/17/24 1833 Cosigner Signature (if applicable): cc: Dr. Jose Clarke DO * Signed ADDENDUM by Dr. Ollie Beltran DO on 12/17/24 at 1725 Patient's case was signed out to me by previous provider to follow-up on head CT as well as orthostatic vital signs. Orthostatic vital signs were negative. Patient CT head and brain without contrast reviewed which showed a chronic right caudate lunar infarct. No CT evidence of acute intracranial pathology. Given the patient cannot ambulate and he lives alone with his dizziness he will require admission will discuss case with hospitalist. 12/17/24 1725 Cosigner Signature (if applicable): cc: Dr. Jose Clarke DO * Signed ADDENDUM by Dr. Mk Terry DO on 12/17/24 at 1607 Patient ambulates to the bathroom and felt extremely dizzy and off balance. We are going to obtain orthostatics obtain a head CT. I am going to discuss the patient with the oncoming physician. 12/17/24 1607 Cosigner Signature (if applicable): cc: Dr. Jose Clarke DO * Signed HPI History of Present Illness Chief Complaint: Chest Pain Informant: patient and EMS Narrative Narrative: 84-year-old diabetic male with a history of coronary artery disease presenting to the emergency room with nausea and dizziness. Patient states that last night during the night he got up to utilize the bathroom and felt off balance. He checked his blood sugar but it was okay. When he got up this morning he felt nauseated and dizzy. He ate and went out to his mailbox but just did not feel right. He called his doctor's office and spoke with the nurse to advise him to come to emergency. He denies any chest pain or shortness of breath. He states that he did have an episode of emesis. No diarrhea no bowel movement this morning. Did have a normal bowel movement yesterday. EMS states that he got particularly nauseated and more dizzy and route and when they looked at the monitor it seemed that there was ST elevation so they instituted a STEMI protocol giving him aspirin and nitroglycerin. However the ST elevation was not always noted on the monitor and arriving here in the hospital his EKG does not show any. He states he recently saw his fiber optics engineer as his pacemaker battery is due to be changed. [facility] Medical History HLD (hyperlipidemia) Hypertension Stage 3b chronic kidney disease Coronary artery disease Benign prostatic hyperplasia Diabetes mellitus, type 2 Pacemaker Home Medications ???Medication ???Instructions ???Recorded ???Last Taken ???Type hydralazine 100 mg tablet 25 mg PO TID BP 12/16/16 08/28/22 07:00 History lisinopril 40 mg tablet 40 mg PO DAILY BP 06/13/20 2 07:00 History aspirin 81 mg tablet 81 mg PO DAILY Heart 04/23/2103/14 07:00 History glimepiride 1 mg tablet 2 mg PO BID Diabetes 04/23/2103/14 07:00 History atorvastatin 80 mg tablet 80 mg PO QHS HYPERLIPIDEMIA 08/27/22 18:00 History acetaminophen 500 mg tablet 1,000 mg (2 x 500 mg) PO Q8 #0 tab s 09/08/22 Unknown Rx amlodipine 10 mg tablet 10 mg PO DAILY 30 days #30 tabs Unknown Rx chlorthalidone 25 mg tablet 25 mg PO DAILY 12/17/24 Unknown Hi story ezetimibe 10 mg tablet 10 mg PO DAILY 12/17/24 Unknown Hi story insulin glargine 100 unit/mL (3 10 unit subcut DAILY 12/17/24 Unkn own History mL) subcutaneous pen (Lantus Solostar U-100 Insulin) Allergy/AdvReac Type Severity Reaction Status Date / Time No Known Allergies Allergy Verified 02/03/23 10:48 Family History Mother Colon cancer Diagnosed age 83, passed age 84. Father Heart disease Hypertension Myocardial infarction CAD (coronary artery disease) Surgical History History of left hip hemiarthroplasty S/P TURP Status post placement of cardiac pacemaker H/O cardiac catheterization History of coronary artery stent placement Social History household members: family Smoking Status (more content not included)... Normal [facility] H AND P Exam - Hospitaliston 12-17-2024 H&P Exam - Hospitalist [facility] Medical Records Department [address] [place] [address] H P Exam - Hospitalist 12/17/24 1803 MR#: [id number] Acct: [id number] Name: BRIAN JOSHI Rep #: [id number] : 1940 84 From: Harvey Flores DO PCP: Dr. Jose Clarke DO Status:REG ER Location: ED HPI - General General Date of Service: 12/17/24 Chief Complaint: Dizziness HPI Narrative BRIAN JOSHI, is a 84 M who presents with dizziness. Dizziness began last night. Worse with changing position and patient has been unsteady due to this. Presented to the emergency room where he underwent a workup including a CAT scan that showed a chronic right caudate lacunar infarct. Patient knuckling of dizziness while at rest but does get worse when he changes position. He has never had this problem before. He has had some abdominal pain and did have some nausea and vomiting. [facility] Medical History HLD (hyperlipidemia) Hypertension Stage 3b chronic kidney disease Coronary artery disease Benign prostatic hyperplasia Diabetes mellitus, type 2 Pacemaker Home Medications ???Medication ???Instructions ???Recorded ???Last Taken ???Type hydralazine 100 mg tablet 25 mg PO TID BP 12/16/16 08/28/22 07:00 History lisinopril 40 mg tablet 40 mg PO DAILY BP 06/13/20 2 07:00 History aspirin 81 mg tablet 81 mg PO DAILY Heart 04/23/2103/14 07:00 History glimepiride 1 mg tablet 2 mg PO BID Diabetes 04/23/2103/14 07:00 History atorvastatin 80 mg tablet 80 mg PO QHS HYPERLIPIDEMIA 08/27/22 18:00 History acetaminophen 500 mg tablet 1,000 mg (2 x 500 mg) PO Q8 #0 tab s 09/08/22 Unknown Rx amlodipine 10 mg tablet 10 mg PO DAILY 30 days #30 tabs Unknown Rx chlorthalidone 25 mg tablet 25 mg PO DAILY 12/17/24 Unknown Hi story ezetimibe 10 mg tablet 10 mg PO DAILY 12/17/24 Unknown Hi story insulin glargine 100 unit/mL (3 10 unit subcut DAILY 12/17/24 Unkn own History mL) subcutaneous pen (Lantus Solostar U-100 Insulin) ondansetron 4 mg disintegrating 4 mg PO Q6H PRN PRN Nausea #15 tab s 12/17/24 Unknown Rx tablet Allergy/AdvReac Type Severity Reaction Status Date / Time No Known Allergies Allergy Verified 02/03/23 10:48 Family History Mother Colon cancer Diagnosed age 83, passed age 84. Father Heart disease Hypertension Myocardial infarction CAD (coronary artery disease) Surgical History History of left hip hemiarthroplasty S/P TURP Status post placement of cardiac pacemaker H/O cardiac catheterization History of coronary artery stent placement Social History household members: family Smoking Status: Never smoker alcohol intake: never substance use type: does not use ROS ROS Narrative No fever or chills. No chest pain. No palpitations. All review of systems were negative except as mentioned above in the history of present illness and the other review of systems. Vital Signs Vital Signs Vital Signs: 12/17/24 12:16 12/17/24 13:15 12/17/24 14:00 Temperature 36.3 C L Temperature Source Oral Pulse Rate 74 60 62 Pulse Rate [Lying] Pulse Rate [Sitting (for 1 minute prior to obtaining)] Pulse Rate [Standing (for 1 minute prior to obtaining)] Respiratory Rate 18 14 22 H Blood Pressure 151/76 H 133/61 H 126/66 H Blood Pressure [Lying] Blood Pressure [Sitting (for 1 minute prior to obtaining)] Blood Pressure [Standing (for 1 minute prior to obtaining)] Blood Pressure Mean 101 85 86 Blood Pressure Mean [Lying] Blood Pressure Mean [Sitting (for 1 minute prior to obtaining)] Blood Pressure Mean [Standing (for 1 minute prior to obtaining)] Pulse Ox 98 95 96 Oxygen Delivery Method Room Air Room Air Room Air 12/17/24 15:00 12/17/24 16:06 12/17/24 17:00 Temperature Temperature Source Pulse Rate 54 L 63 Pulse Rate [Lying] 59 L Pulse Rate [Sitting (for 1 minute prior to obtaining)] 79 Pulse Rate [Standing (for 1 minute prior to obtaining)] 79 Respiratory Rate 18 19 H Blood Pressure 131/71 H 151/61 H Blood Pressure [Lying] 166/60 H Blood Pressure [Sitting (for 1 minute prior to obtaining)] 170/71 H Blood Pressure [Standing (for 1 minute prior to obtaining)] 140/78 H Blood Pressure Mean 91 91 Blood Pressure Mean [Lying] 95 Blood Pressure Mean [Sitting (for 1 minute prior to obtaining)] 104 Blood Pressure Mean [Standing (for 1 minute prior to obtaining)] 98 Pulse Ox 98 98 Oxygen Delivery Method Room Air 12/17/24 17:39 12/17/24 17:52 Temperature 36.3 C L Temperature Source (more content not included)... Normal [facility] L501.4020on 12-17-2024 TROPONIN-I HS 10 pg/mL Normal 3.0-78.0 [facility] Comment on above: Result Comment: Plea se Note: New Test Units and Gender Specific Reference Ranges. For more information see Policy Stat Procedure Riley High Sensitivity Troponin (TNIH) and attachments. Performed By: #### L 500.2500, L501.9985 #### [facility] [address] [place], [address] L501.5425on 12-17-2024 TROPONIN-I HS 10 pg/mL Normal 3.0-78.0 [facility] Comment on above: Order Comment: 1Y Result Comment: Plea se Note: New Test Units and Gender Specific Reference Ranges. For more information see Policy Stat Procedure Riley High Sensitivity Troponin (TNIH) and attachments. Performed By: #### L 500.2500, L501.9985 #### [facility] [address] [place], [address] Lipaseon 12-17-2024 Lipase [Catalytic activity/Vol] 65 U/L Low 73-393 [facility] Comment on above: Performed By: #### L 500.2500, L500.3400, L501.5425, L501.2450 #### [facility] [address] [place], [address] Liver Profileon 12-17-2024 Albumin [Mass/Vol] 3.5 g/dL Normal 3.2-5.0 [facility] Comment on above: Performed By: #### L 500.2500, L500.3400, L501.5425, L501.2450 #### [facility] [address] [place], [address] ALK P 81 U/L Normal 45-117 [facility] Comment on above: Performed By: #### L 500.2500, L500.3400, L501.5425, L501.2450 #### [facility] [address] [place], [address] ALT [Catalytic activity/Vol] 24 U/L Normal 16-61 [facility] Comment on above: Performed By: #### L 500.2500, L500.3400, L501.5425, L501.2450 #### [facility] [address] [place], [address] AST [Catalytic activity/Vol] 13 U/L Low 15-37 [facility] Comment on above: Performed By: #### L 500.2500, L500.3400, L501.5425, L501.2450 #### [facility] [address] [place], [address] Bilirubin [Mass/Vol] 0.60 mg/dL Normal 0.20-1.00 [facility] Comment on above: Result Comment: For patients on eltrombopag therapy, use of Dimension Riley TBIL is not recommended. Performed By: #### L 500.2500, L500.3400, L501.5425, L501.2450 #### [facility] [address] [place], [address] Bilirubin.direct [Mass/Vol] 0.22 mg/dL Normal 0.00-0.30 [facility] Comment on above: Performed By: #### L 500.2500, L500.3400, L501.5425, L501.2450 #### [facility] [address] [place], [address] Globulin (S) [Mass/Vol] 3.9 g/dL Normal 2.2-4.2 [facility] Comment on above: Performed By: #### L 500.2500, L500.3400, L501.5425, L501.2450 #### [facility] [address] [place], [address] T PROT 7.4 g/dL Normal 6.4-8.2 [facility] Comment on above: Performed By: #### L 500.2500, L500.3400, L501.5425, L501.2450 #### [facility] [address] [place], [address] 36on 11-13-2024 36 S: Patient called [facility] clinical access [facility] with complaint of blood sugar 55 this AM. He ate something and shot to 250. B: Ongoing has been having trouble with his blood sugars since starting Lantus. A: Patient c/o woke up at 55. He ate 1 cookie and blood sugar went up to 250. Checks with Jose. Lantus was 12 units yeaterday and has not take it today. Also on glimperide. Ran out of Jardiance, states he took this last night. Blood suagr will stay above 200 all day. When he wakes up in the mornings blood sugar runs low 50-70. Started Lantus 5 days ago. After he eats breakfast and takes his Lantus his blood sugar remains high all day. It may drop to the 140's but will go right back up over 200. Please call [phone] R: Telephone Appointment scheduled 11/13/[address] Clarke this was Ok'd by Geena. Insurance verified. . Home Care advice given. Patient instructed to call back with worsening symptoms, concerns or questions. Patient verbalized understanding. Message to the office for review by the provider and needs recommendation from Provider for treatment going forward. Reason for Disposition Morning (before breakfast) blood glucose < 80 mg/dL (4.4 mmol/L) and more than once in past week Protocols used: Diabetes - Low Blood Jodne-NGIIG-TA Normal [facility] Progress Noteon 11-13-2024 Progress Note [facility] - [address] [facility] [address] Dept: [phone] Dept Loc: [phone] Patient was identified and seen today via Telehealth by agreement and consent. I used the following Telehealth technology: Audio capability only. Total length of call 15 minutes. The patient was offered and advised video for a more comprehensive evaluation, but the patient declined or was unable to use video. Patient location: Patient Location: Home. This patient encounter is appropriate and reasonable under the circumstances: . The patient has been advised of the potential risks and limitations of this mode of treatment (including but not limited to the absence of in-person examination) and has agreed to be treated in a remote fashion in spite of them. Any and all of the patient's/patient's family's questions on this issue have been answered and I have made no promises or guarantees to the patient. The patient has also been advised to contact this office for worsening conditions or problems, and seek emergency medical treatment and/or call 911 if the patient deems either necessary. The patient stated that they are currently in the [facility]. If the patient is a minor, permission has been obtained by the parent or guardian for the patient to receive medical care at this visit. Assessment/Plan Diagnoses and all orders for this visit: Adverse effect of oral hypoglycemic drug, initial encounter (Primary) Comments: Decrease amaryl to 2 mg every morning only and decrease Lantus to 10 units daily Type 2 diabetes mellitus with stage 3b chronic kidney disease, with long-term current use of insulin (HCC) Other orders - glimepiride (Amaryl) 2 MG tablet; Decrease to 1 every morning only - insulin glargine (Lantus SoloStar) 100 UNIT/ML pen; Decrease to 10 units subcutaneous each day and increase by 1 unit every other day if fasting glucose level over 140. Then maintain that total dosage once glucose levels are generally running around 140 or lower During the telephone call he was certainly alert and oriented and in no acute distress. He was lucid during the discussion and understood our plans for his diabetic management. No follow-ups on file. Patient to call with update on glucose levels in 2 weeks. Symptoms of hypoglycemia discussed. Continue on Jardiance and decrease glimepiride to 2 mg every morning only. Restart insulin at 10 units daily only Subjective Brian Joshi is a 84 y.o. who presents on the telephone for a remote visit. Chief complaint: No chief complaint on file. Recurrent hypoglycemia HPI Type II diabetic that recently was restarted on insulin presents to discuss recurrent hypoglycemic reactions in the morning. Of note has been on Jardiance and glimepiride with elevated A1c levels. He cannot afford Jardiance and that was stopped yesterday. Still on glimepiride 2 mg twice daily. Having hypoglycemia in the morning of 55 to 60 mg/Huong levels. Minimally symptomatic but eat some extra cookies and his glucose level jumps up nicely. No headache or fever. No vomiting or abdominal pain. No other source of risk for hypoglycemia. He would like some instruction on how to prevent recurrent hypoglycemia. No Known Allergies [] PMH, allergies, and social history reviewed and updated as appropriate [] Medication list reviewed/updated [] Allergies reviewed/updated [] Problem list reviewed/updated [] Patient requests medication refills, see below for orders. Jose Clarke DO 11/13/2024 12:[address] [facility] 2911-08-2024 29 Addended by: JOSE TESFAYE on: 11/08/2024 12:49 PM Modules accepted: Orders [facility] 29 Addended by: MADHURI ROBISON on: 11/08/2024 11:43 AM Modules accepted: Orders [facility] 36on 11-08-2024 36 Message released to patient as written. Patient's further questions if applicable: Were all questions from office addressed or relayed to the patient from encounter: Yes. I released the message to the patient. No questions at this time. Please advise [facility] 36 Placed call to lula sims to discuss provider direction. Message left on voicemail to return call. Please release message to patient: Yes. The patient should continue glimepiride as directed [facility] 36 Name of caller: Holli levine Contact phone number: [phone] Relationship to Patient: patient Provider: Dr. Clarke Practice: [facility] Chief Complaint/Reason for Call: Please refer to TE from today 11/08. Patient called in to see if they should continue taking their glimepiride (Amaryl) 2 MG tablet medication or not after they start the insulin. Patient states that they believe they may take another pill for their sugar and they would like to clarify and see if they should be taking any medications for their sugar after they start the insulin. Patient is requesting a call back. Please advise. Best time of day caller can be reached: Any Patient advised that office/PCP has 24-48 business hours to return their call: Yes [place] [address] Talked to patient an d relayed message and he will try those recommendations. Also patient is wanting to try the [employer] system as well. RX loaded Next ov 02/01/[address] [facility] 36 Name of caller: holli coronel Contact phone number: [phone] Relationship to Patient: patient Provider: evy Practice: [facility] Chief Complaint/Reason for Call: Pt states prescription for empagliflozin (Jardiance) 25 MG is too expensive for him to keep up with . Pt states with insurance he has to pay $300 a month and without insurance its about $2200. Pt is requesting to switch to insulin instead sent to [facility].Pt is wanting to know when he recieves insulin will he still have to take Jardiance? Pt states pcp also gave him Tylenol 500mg and gabapentin (Neurontin) 300 MG capsule but can not take those because he sees double after taking the meds. Pt also asking for a patch to put on his arm to check his blood sugar with his phone.Please advise. Best time of day caller can be reached: AM Patient advised that office/PCP has 24-48 business hours to return their call: Yes [facility] 36on 11-05-2024 36 Patient aware of res ults. Consent to increase his Jardiance to 25mg. Rx pended. Results faxed to Dr. Vines [facility] 36 ----- Message from Vibha Clarke DO sent at 11/04/2024 10:31 AM EST ----- lipids are at goal but A1c elevated over goal of less than 7.5. We do have to be careful of his kidney function, but we could either increase Jardiance to 25 mg a day or he should consider restarting insulin. Let me know which 1 he consents to. 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 Jasmyn Small [facility] 37on 10-30-2024 37 Restart Gabapentin t wice a day routinely for low back and leg pain [facility] Office Visiton 10-30-2024 Follow-up visit [id number] Sharron Joshi 1940 M Date Provider Department Center 10/30/2024 52576-EVELXDIEJOSE CLARKE [facility] Family History Problem Relation Age of Onset Colon cancer Mother Comments: age 82 Coronary artery disease Father Comments: [place], age 57 No Known Problems Sister Diabetes Sister Hypertension Brother Prostate cancer Brother 74 Comments: alive age 80 No Known Problems Brother Comments: in ECF, alive age 88 Prostate cancer Brother 70 Dementia Brother Comments: in ECF age 93 Family Status - Relation Status Age at Mother Father Sister Alive Sister Alive Brother Alive Brother Alive Brother Alive Level of Service:34150 [place] OFFICE/OUTPATIENT ESTABLISHED MOD MDM 30 MIN Reason for Visit and Comments: Follow-up [131805] - Med check [facility] Progress Noteon 10-30-2024 Progress Note [facility] - [address] [facility] [address] Visit type: Established Patient Reason for Visit: Follow-up (Med check) Assessment / Plan: Brian was seen today for follow-up. Diagnoses and all orders for this visit: Type 2 diabetes mellitus with stage 3b chronic kidney disease, without long-term current use of insulin (HCC) (Primary) Comments: Stable on Jardiance and glimepiride Hypercholesterolemia with hypertriglyceridemia Comments: Stable, continue Lipitor Stage 3b chronic kidney disease (HCC) 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 Essential hypertension Comments: Stable, continue current meds Chronic left-sided lumbar radiculopathy Comments: Recurrent restart gabapentin and Tylenol Orders: - Hemoglobin A1c; Future - Lipid panel; Future - Hemoglobin A1c - Lipid panel Left foot drop Other orders - triamcinolone (Kenalog) 0.1 % ointment; Apply topically 2 times daily for 30 doses. - gabapentin (Neurontin) 300 MG capsule; Take 1 capsule (300 mg) by mouth 2 times daily for 60 doses. Take with 2 Acetaminophen 500mg along with Gabapentin BID Subjective: Patient ID: Brian Joshi is a 84 y.o. male. HPI type II diabetic with heart disease, renal failure and hypertension and hyperlipidemia presents for checkup. Overall feeling well. Started Jardiance a few months ago and glucose levels acceptable. No hypoglycemic episodes. Has ongoing low back pain and left-sided sciatica. Would like to know analgesic options. Cannot take NSAIDs. He in review he was taking gabapentin but stopped it. He did think that medicine helped. He has a chronic left foot drop. Review of Systems weight is stable. No night sweats fevers or chills. No chest pain or use of nitro. No exertional dyspnea PND orthopnea claudication or edema. No heartburn or abdominal pain. Bowels are regular. No melena or blood. No dysuria. No back pain is about the same. No recent falls. History of moderate lumbar disc disease and chronic left leg neuropathy. No Known Allergies Current Outpatient Medications on File Prior to Visit Medication Sig Dispense Refill amLODIPine (Norvasc) 10 MG tablet TAKE 1 TABLET BY MOUTH DAILY 100 tablet 2 Aspirin-Calcium Carbonate 81-777 MG tablet Take 81 mg by mouth in the morning. atorvastatin (Lipitor) 80 MG tablet TAKE 1 TABLET BY MOUTH DAILY 100 tablet 2 chlorthalidone (Hygroton) 25 MG tablet TAKE 1 TABLET BY MOUTH DAILY 100 tablet 2 empagliflozin (Jardiance) 10 MG Take 1 tablet (10 mg) by mouth daily. 30 tablet 3 ezetimibe (Zetia) 10 MG tablet TAKE 1 TABLET BY MOUTH DAILY 100 tablet 2 glimepiride (Amaryl) 2 MG tablet TAKE 1 TABLET BY MOUTH TWICE DAILY 200 tablet 2 hydrALAZINE (Apresoline) 25 MG tablet TAKE 1 TABLET BY MOUTH 3 TIMES DAILY 240 tablet 3 lisinopril 40 MG tablet TAKE 1 TABLET BY MOUTH DAILY 100 tablet 2 [DISCONTINUED] gabapentin (Neurontin) 300 MG capsule Take 1 capsule (300 mg) by mouth 2 times daily for 60 doses. Take with 2 Acetaminophen 500mg along with Gabapentin BID 60 capsule 2 Glucose Blood (Blood Glucose Test) strip E11.9 Test 2 times a day & as needed for symptoms of irregular blood glucose. Dispense sufficient amount for indicated testing frequency plus additional to accommodate PRN testing needs. glucose blood (FREESTYLE LITE) test strip 1 each. glucose blood test strip 1 each by Other route 2 times daily. Use as instructed 100 each 12 Lancets 1 each by Other route 2 times daily. 100 each 3 nitroglycerin (Nitrostat) 0.[address] 0.3 mg under the tongue. No current facility-administered medications on file prior to visit. Patient Active Problem List Diagnosis Essential hypertension Stage 3b chronic kidney disease (HCC) CAD (coronary artery disease) Eczema Benign prostatic hyperplasia Hypercholesterolemia with hypertriglyceridemia Family history of colon cancer ED (erectile dysfunction) Type 2 diabetes mellitus with diabetic chronic kidney disease (HCC) Family history of prostate cancer Pacemaker Wears hearing aid in right ear Hx of fracture of left hip Chronic left-sided lumbar radiculopathy Left foot drop Social History Tobacco Use Smoking status: Never Smokeless tobacco: Never Substance Use Topics Alcohol use: No Alcohol/week: 0.0 standard drinks of alcohol Past Surgical History: Procedure Laterality Date CARDIAC PACEMAKER PLACEMENT 12/2017 Koffi / Black CATARACT EXTRACTION Bilateral COLONOSCOPY 2004 Ahmed COLONOSCOPY 2014 Marshal- defers rech CORONARY ANGIOPLASTY WITH STENT PLACEMENT 03/2010 LAD coronary stent CYSTOSCOPY 08/2022 [place] HAND CONTRACTURE RELEASE Right 08/2022 Dr. Forde PARTIAL HIP ARTHROPLASTY Left 08/2022 Dr. Forde TRANSURETHRAL RESECTION OF PROSTATE 07/2020 Dr Costa Family History Problem Relation Name A (more content not included)... Normal [facility] [employer] [facility] 25-hydroxyvitamin D3 [Mass/V ol]on 10-19-2024 Interpretation and review of laboratory results Normal [facility] Target concentration : 30 - 40 ng/mL; toxicity seen at concentrations >100 ng/mL Therapy is based on measurement of Total 25-OHD with the following classification levels: Less than 20 ng/mL: Indicative of Vit D deficiency 20-30 ng/mL: Suggests Vit D insufficiency Optimal: Greater than or equal to 30 ng/mL Test performed by [employer] Competitive Immunoassay, measuring Total Vitamin D, not individual fractions. [facility] CBC (HEMOGRAM)on 10-19-2024 Erythrocyte distribution width (RBC) [Ratio] 13.1 % Normal 11.5-15.0 [facility] Comment on above: Performed By: #### L AB294 ####Chemistry Specialist: PIOTR JONES ([id number])[facility] CORNELIUS RITTMAN (SWRLAB)[address] [place] [address] Hematocrit (Bld) [Volume fraction] 45.2 % Normal 40.0-52.0 [facility] Comment on above: Performed By: #### L AB294 ####Chemistry Specialist: PIOTR JONES ([id number])[facility] CORNELIUS RITTMAN (SWRLAB)[address] [place] [address] Hemoglobin (Bld) [Mass/Vol] 14.8 g/dL Normal 13.0-18.0 [facility] Comment on above: Performed By: #### L AB294 ####Chemistry Specialist: PIOTR JONES ([id number])[facility] CORNELIUS RITTMAN (SWRLAB)[address] [place] [address] MCH (RBC) [Entitic mass] 30.3 pg Normal 26.0-34.0 [facility] Comment on above: Performed By: #### L AB294 ####Chemistry Specialist: PIOTR JONES ([id number])[facility] CORNELIUS RITTMAN (SWRLAB)[address] [place] [address] MCHC 32.7 % Normal 30.5-36.0 [facility] Comment on above: Performed By: #### L [id number] ####Chemistry Specialist: PIOTR JONES ([id number])[facility] CORNELIUS RITTMAN (SWRLAB)[address] [place] [address] MCV (RBC) [Entitic vol] 92.6 fL Normal 77.0-99.0 [facility] Comment on above: Performed By: #### L [id number] ####Chemistry Specialist: PIOTR JONES ([id number])LAURA GRTMAN (SWRLAB)[address] [place] [address] Platelet mean volume (Bld) [Entitic vol] 9.3 fL Normal 9.0-12.7 [facility] Comment on above: Result Comment: MPV is a calculated measurement using platelet volume ratio Performed By: #### L [id number] ####Chemistry Specialist: PIOTR JONES ([id number])[facility] GRTMAN (SWRLAB)[address] [place] [address] Platelets (Bld) [#/Vol] 380 10*3/uL Normal 140-440 [facility] Comment on above: Performed By: #### L [id number] ####Chemistry Specialist: PIOTR JONES ([id number])[facility] GRT[facility] (SWRLAB)[address] [place] [address] RBC (Bld) [#/Vol] 4.88 10*6/uL Normal 4.40-5.90 [facility] Comment on above: Performed By: #### L [id number] ####Chemistry Specialist: PIOTR JONES ([id number])[facility] GRT[facility] (SWRLAB)[address] [place] [address] WBC (Bld) [#/Vol] 9.9 10*3/uL Normal 3.6-10.7 [facility] Comment on above: Performed By: #### L [id number] ####Chemistry Specialist: PIOTR JONES ([id number])[facility] GRTMAN (SWRLAB)[address] [place] [address] CBC panel Auto (Bld)on 10-19 Erythrocyte distribution width (RBC) [Ratio] 13.1 % 11.5 - 15.0 % [facility] Hematocrit (Bld) [Volume fraction] 45.2 % 40.0 - 52.0 % [facility] Hemoglobin (Bld) [Mass/Vol] 14.8 g/dL 13.0 - 18.0 g/dL [facility] Interpretation and review of laboratory results Normal [facility] MCH (RBC) [Entitic mass] 30.3 pg 26.0 - 34.0 pg [facility] MCHC (RBC) [Mass/Vol] 32.7 % 30.5 - 36.0 % [facility] MCV (RBC) [Entitic vol] 92.6 fL 77.0 - 99.0 fL [facility] Platelet mean volume (Bld) [Entitic vol] 9.3 fL 9.0 - 12.7 fL [facility] Comment on above: MPV is a calculated measurement using platelet volume ratio Platelets (Bld) [#/Vol] 380 10*3/uL 140 - 440 10*3/uL [facility] RBC (Bld) [#/Vol] 4.88 10*6/uL 4.40 - 5.9 0 10*6/uL [facility] WBC (Bld) [#/Vol] 9.9 10*3/uL 3.6 - 10.7 10*3/uL [facility] CREATININE, URINE, RANDOMon 10-19-2024 CREATININE, URINE 184.1 mg/dL High 63.0-166.0 [facility] Comment on above: Result Comment: DEAN Melendez COMMENTS: Concentration is based on a daily urine output of 1.5 L. Performed By: #### L [id number], [id number] ####Chemistry Specialist: PIOTR JONES ([id number])[facility] ([address] Creatinine (U) [Mass/Vol]on 10-19-2024 Concentration is bas ed on a daily urine output of 1.5 L. [facility] No Panel Informationon 10-19 CREATININE, URINE 184.1 mg/dL High 63.0 - 166.0 mg/dL [facility] Interpretation and review of laboratory results Abnormal [facility] PROTEIN, URINE, RANDOMon Protein (U) [Mass/Vol] 20 mg/dL High <14 [facility] Comment on above: Performed By: #### L [id number], [id number] ####Chemistry Specialist: PIOTR JONES ([id number])[facility] GRTMAN (SWRLAB)[address] [place] [address] [place] PTH INTACTon 10-19-2024 PTH, INTACT 116.1 pg/mL Normal 22.6-120.3 [facility] Comment on above: Performed By: #### L [id number] ####Chemistry Specialist: MANUELA WYNN ([id number])[facility] (SBHLAB)[address] [place] [address] PTH, intacton 10-19-2024 Parathyrin.intact [Mass/Vol] 116.1 pg/mL 22.6 - 120.3 pg/mL [facility] Parathyrin.intact [Mass/Vol] on 10-19-2024 Interpretation and review of laboratory results Normal [facility] Protein, urine, randomon Protein (U) [Mass/Vol] 20 mg/dL High NINF - 14 mg/dL [facility] RENAL FUNCTION PANELon 10-19 Albumin [Mass/Vol] 3.7 g/dL Normal 3.4-4.8 [facility] Comment on above: Performed By: #### L AB19 ####Chemistry Specialist: PIOTR JONES ([id number])[facility] CORNELIUS RITTMAN (SWRLAB)[address] [place] [address] Anion gap [Moles/Vol] 10 mmol/L Normal 3-13 [facility] Comment on above: Performed By: #### L AB19 ####Chemistry Specialist: PIOTR JONES ([id number])[facility] CORNELIUS RITTMAN (SWRLAB)[address] [place] [address] Calcium [Mass/Vol] 9.5 mg/dL Normal 8.8-10.0 [facility] Comment on above: Performed By: #### L AB19 ####Chemistry Specialist: PIOTR JONES ([id number])[facility] CORNELIUS RITTMAN (SWRLAB)[address] [place] [address] [place] Chloride [Moles/Vol] 109 mmol/L High 98-107 [facility] Comment on above: Performed By: #### L AB19 ####Chemistry Specialist: PIOTR JONES ([id number])[facility] CORNELIUS RITTMAN (SWRLAB)[address] CO2 [Moles/Vol] 25 mmol/L Normal 23-31 [facility] Comment on above: Performed By: #### L AB19 ####Chemistry Specialist: PIOTR JONES ([id number])[facility] CORNELIUS RITTMAN (SWRLAB)[address] Creatinine [Mass/Vol] 1.93 mg/dL High 0.72-1.25 [facility] Comment on above: Performed By: #### L AB19 ####Chemistry Specialist: PIOTR JONES ([id number])[facility] CORNELIUS RITTMAN (SWRLAB)[address] [place] [address] [place] GLOMERULAR FILTRATION RATE ML/MIN/1.73 SQ M.PREDICTED 33.9 mL/min/1.73m*2 Low >60.0 [facility] Comment on above: Result Comment: Calc ulation based on the Chronic Kidney Disease Epidemiology Collaboration (CKD-EPI) equation refit without adjustment for race Performed By: #### L AB19 ####Chemistry Specialist: PIOTR JONES ([id number])[facility] CORNELIUS RITTMAN (SWRLAB)[address] [place] [address] [place] Glucose [Mass/Vol] 153 mg/dL High 82-115 [facility] Comment on above: Performed By: #### L AB19 ####Chemistry Specialist: PIOTR JONES ([id number])[facility] CORNELIUS RITTMAN (SWRLAB)[address] [place] [address] [place] Phosphate [Mass/Vol] 3.2 mg/dL Normal 2.3-4.7 [facility] Comment on above: Performed By: #### L AB19 ####Chemistry Specialist: PIOTR JONES ([id number])[facility] ASHLI RITTMAN (SWRLAB)[address] Potassium [Moles/Vol] 3.8 mmol/L Normal 3.5-5.1 [facility] Comment on above: Result Comment: Plas ma potassium values may be up to 0.5 mmol/L lower than serum values. Performed By: #### L AB19 ####Chemistry Specialist: PIOTR JONES ([id number])[facility] GRTMAN (SWRLAB)[address] Sodium [Moles/Vol] 144 mmol/L Normal 136-145 [facility] Comment on above: Performed By: #### L AB19 ####Chemistry Specialist: PIOTR JONES ([id number])[facility] GRT[facility] (SWRLAB)[address] Urea nitrogen [Mass/Vol] 33 mg/dL High 9-23 [facility] Comment on above: Performed By: #### L AB19 ####Chemistry Specialist: PIOTR JONES ([id number])[facility] GRT[facility] (SWRLAB)[address] Renal function 2000 panelon 10-19-2024 Albumin [Mass/Vol] 3.7 g/dL 3.4 - 4.8 g/dL [facility] Anion gap [Moles/Vol] 10 mmol/L 3 - 13 mmol/L [facility] Calcium [Mass/Vol] 9.5 mg/dL 8.8 - 10. 0 mg/dL [facility] Chloride [Moles/Vol] 109 mmol/L High 98 - 10 7 mmol/L [facility] CO2 [Moles/Vol] 25 mmol/L 23 - 31 mmol/L [facility] Creatinine [Mass/Vol] 1.93 mg/dL High 0.72 - 1.25 mg/dL [facility] GFR/1.73 sq M.predicted (S/P/Bld) [Vol rate/Area] 33.9 mL/min Low - PINF [facility] Comment on above: Calculation based on the Chronic Kidney Disease Epidemiology Collaboration (CKD-EPI) equation refit without adjustment for race Glucose [Mass/Vol] 153 mg/dL High 82 - 115 mg/dL [facility] Interpretation and review of laboratory results Abnormal [facility] Phosphate [Mass/Vol] 3.2 mg/dL 2.3 - 4 .7 mg/dL [facility] Potassium [Moles/Vol] 3.8 mmol/L 3.5 - 5.1 mmol/L [facility] Comment on above: Plasma potassium [place] may be up to 0.5 mmol/L lower than serum values. Sodium [Moles/Vol] 144 mmol/L 136 - 145 mmol/L [facility] Urea nitrogen [Mass/Vol] 33 mg/dL High 9 - 23 mg/dL [facility] VITAMIN D DEFICIENCY SCREENI NG (VIT D 25)on 10-19-2024 VIT D 25-OH, TOTAL 31 ng/mL Normal >20 [facility] Comment on above: Result Comment: DEAN Melendez COMMENTS: Target concentration: 30 - 40 ng/mL; toxicity seen at concentrations >100 ng/mL Therapy is based on measurement of Total 25-OHD with the following classification levels: Less than 20 ng/mL: Indicative of Vit D deficiency 20-30 ng/mL: Suggests Vit D insufficiency Optimal: Greater than or equal to 30 ng/mL Test performed by [employer] Competitive Immunoassay, measuring Total Vitamin D, not individual fractions. Performed By: #### L [id number] ####Chemistry Specialist: PIOTR JONES ([id number])[facility] (SWLAB)[address] [place] [address] Vitamin D Deficiency Screeni ng (Vit D 25)on 10-19-2024 25-hydroxyvitamin D3 [Mass/Vol] 31 ng/mL 20 - PINF ng/mL [facility] 36on 09-19-2024 36 Recent Visits Date Type Provider Dept 07/03/24 Office Visit Jose Clarke DO [facility] 02/07/24 Office Visit Jose Clarke DO [facility] 11/08/23 Office Visit Jose Clarke DO [facility] Showing recent visits within past 365 days and meeting all other requirements Future Appointments Date Type Provider Dept 10/30/24 Appointment Jose Clarke DO [facility] Showing future appointments within next 90 days and meeting all other requirements Requested Prescriptions Pending Prescriptions Disp Refills atorvastatin (Lipitor) 80 MG tablet [Pharmacy Med Name: Atorvastatin Calcium 80 MG Oral Tablet] 100 tablet 2 Sig: TAKE 1 TABLET BY MOUTH DAILY glimepiride (Amaryl) 2 MG tablet [Pharmacy Med Name: Glimepiride 2 MG Oral Tablet] 200 tablet 2 Sig: TAKE 1 TABLET BY MOUTH TWICE DAILY ezetimibe (Zetia) 10 MG tablet [Pharmacy Med Name: Ezetimibe 10 MG Oral Tablet] 100 tablet 2 Sig: TAKE 1 TABLET BY MOUTH DAILY chlorthalidone (Hygroton) 25 MG tablet [Pharmacy Med Name: Chlorthalidone 25 MG Oral Tablet] 100 tablet 2 Sig: TAKE 1 TABLET BY MOUTH DAILY lisinopril 40 MG tablet [Pharmacy Med Name: Lisinopril 40 MG Oral Tablet] 100 tablet 2 Sig: TAKE 1 TABLET BY MOUTH DAILY amLODIPine (Norvasc) 10 MG tablet [Pharmacy Med Name: amLODIPine Besylate 10 MG Oral Tablet] 100 tablet 2 Sig: TAKE 1 TABLET BY MOUTH DAILY Provider: Jose Clarke, Verified pharmacy: yes Verified day(s) supplied: yes Verified refill(s) needed (previous prescription showing no refills in chart): Yes Have you received any controlled medications from any other provider? N/A Overdue for visit: No If yes - patient scheduled? Yes Most recent labs completed in chart? Yes Hypertension: Lab Results Component Value Date NA 141 10/21/2023 K 3.7 10/21/2023 EGFR 44 (L) 07/03/2024 BUN 31 (H) 07/03/2024 CREATININE 1.56 (H) 07/03/[address] [facility] 36on 09-17-2024 36 Name of caller: Holli Joshi Contact phone number: [phone] Relationship to Patient: patient Provider: Dr. Clarke Practice: [facility] Chief Complaint/Reason for Call: FYI Pt wanted to let Dr. Clarke know that his new Rx for empagliflozin (Jardiance) 10 MG is working. Thank you. Best time of day caller can be reached: Any Patient advised that office/PCP has 24-48 business hours to return their call: Yes Frolik [facility] 36 Medication name: One touch ultra II Medication dosage: NA Monthly quantity needed: 100 strips How many day supply requestin days Medication route: intramuscular injection (IM) Medication administration time(s): 2 times a day (BID) If taking medication PRN, reason for taking medication: N/A If this is a controlled substance do you receive this or any other controlled medication from any other doctor or facility: No Ordering provider: Dr. Clarke Date of last office visit: 07.03.2024 Date of next office visit: 10.30.2024 Date of last refill: (see medication tab): NA Updated/Validated preferred pharmacy: Yes Patient instructed to contact the pharmacy prior to picking up the medication: Yes [facility] 36on 09-14-2024 36 Me CW 09/14/24 11:58 AM Note Pt advised and said he picked up medication. Frolik [facility] 36 Pt advised and said he picked up medication. Frolik [facility] [employer] [facility] 36on 09-13-2024 36 Called patient to re lay message from Dr. Clarke, phone line picked up and went silent both attempts to call. Frolik [facility] [employer] [facility] 36 Message released to patient as written. Patient's further questions if applicable: Were all questions from office addressed or relayed to the patient from encounter: Yes. I released the message to the patient from Dr Clarke - He is on the maximal doses of glimepiride for his age and renal failure. I have prescribed a drug called Jardiance which can help his diabetes and also prevent progression of coronary disease. It might be too expensive but I did email over the medicine today. If it is too expensive he should call back for an alternate med. He should pick it up and do a log of glucose levels and let us know the result in 3 to 4 weeks [facility] [place] Is he to continue all other medication? Please advise Frolik [facility] [employer] [place] [id number] Left message for anil uriostegui to return call to the office, please release information to patient [facility] [employer] [facility] 36 S: Patient spoke blayne bolaños [facility] nurse regarding elevated blood sugars B: Onset of symptoms/concern 5 days A: States his blood sugars have been increasing from 150s to 170s. Blood sugar this morning, before eating was 173. Denies increased thirst, urination, nausea, vomiting, lightheadedness. R: Advised to increase fluids over next four hours and continue to monitor blood sugars. Patient understands care advice. No further needs at this time. Patient instructed to call back with new or worsening symptoms. Reason for Disposition Blood glucose 70 - 240 mg/dL (3.9 -13.3 mmol/L) Protocols used: Diabetes - High Blood [employer] [place] [id number] 36 Pended Recent Visits Date Type Provider Dept 07/03/24 Office Visit Jose Clarke, DO [facility] 02/07/24 Office Visit Jose Clarke DO [facility] 11/08/23 Office Visit Jose Clarke DO [facility] Showing recent visits within past 365 days and meeting all other requirements Future Appointments Date Type Provider Dept 10/30/24 Appointment Jose Clarke DO [facility] Showing future appointments within next 90 days and meeting all other requirements Requested Prescriptions Pending Prescriptions Disp Refills hydrALAZINE (Apresoline) 25 MG tablet [Pharmacy Med Name: hydrALAZINE HCl 25 MG Oral Tablet] 240 tablet 1 Sig: TAKE 1 TABLET BY MOUTH 3 TIMES DAILY Provider: Jose Clarke DO Verified pharmacy: yes Verified day(s) supplied: yes Verified refill(s) needed (previous prescription showing no refills in chart): Yes Have you received any controlled medications from any other provider? N/A Overdue for visit: N/A If yes - patient scheduled? N/A Most recent labs completed in chart? N/A [place] [id number] 36 Noted and form has b een faxed to [facility] 07-18-2024 36 Name of caller: Hollimarivel levine Contact phone number: [phone] Relationship to Patient: patient Provider: Dr Clarke Practice: [facility] Chief Complaint/Reason for Call: Patient returned call and states that he has One Touch Delica Plus Lancets 100ct , 33 gauge. FYI Best time of day caller can be reached: any Patient advised that office/PCP has 24-48 business hours to return their call: N/A [facility] 36 [facility] wants us to find out what brand and gauge lancets that Kenny uses. I have left message. [facility] 36on 07-12-2024 [address] [facility] 36 Ordering provider: Kaz granados Date of last office visit: 07.03.2024 Date of next office visit: 10.30.2024 Updated/Validated preferred pharmacy: Yes Patient instructed to contact the pharmacy prior to picking up the medication: N/A (1) Medication name: amLODIPine (Norvasc) tablet Medication dosage: 10 mg (Miligrams Monthly quantity needed: 30 How many day supply requestin days Medication route: oral (PO) Medication administration time(s): daily If taking medication PRN, reason for taking medication: N/A If this is a controlled substance do you receive this or any other controlled medication from any other doctor or facility: N/A Date of last refill (see medication tab): 04.03.2024 (2) Medication name: glimepiride (Amaryl) tablet Medication dosage: 2 mg (Miligrams Monthly quantity needed: 60 How many day supply requestin days Medication route: oral (PO) Medication administration time(s): 2 times a day (BID) If taking medication PRN, reason for taking medication: N/A If this is a controlled substance do you receive this or any other controlled medication from any other doctor or facility: N/A Date of last refill (see medication tab): 06.18.2024 (3) Medication name: chlorthalidone (Hygroton) tablet Medication dosage: 25 mg (Miligrams Monthly quantity needed: 30 How many day supply requestin days Medication route: oral (PO) Medication administration time(s): daily If taking medication PRN, reason for taking medication: N/A If this is a controlled substance do you receive this or any other controlled medication from any other doctor or facility: N/A Date of last refill (see medication tab): 04.03.2024 (4) Medication name: hydrALAZINE (Apresoline) tablet Medication dosage: 25 mg (Miligrams Monthly quantity needed: 90 How many day supply requestin days Medication route: oral (PO) Medication administration time(s): 3 times a day (TID) If taking medication PRN, reason for taking medication: N/A If this is a controlled substance do you receive this or any other controlled medication from any other doctor or facility: N/A Date of last refill (see medication tab): 04.03.2024 (5) Medication name: lisinopril tablet Medication dosage: 40 mg (Miligrams Monthly quantity needed: 30 How many day supply requestin days Medication route: oral (PO) Medication administration time(s): daily If taking medication PRN, reason for taking medication: N/A If this is a controlled substance do you receive this or any other controlled medication from any other doctor or facility: N/A Date of last refill (see medication tab): 04.03.2024 (6) Medication name: ezetimibe (Zetia) tablet Medication dosage: 10 mg (Miligrams Monthly quantity needed: 30 How many day supply requestin days (Request for 100 Tablets) Medication route: oral (PO) Medication administration time(s): daily If taking medication PRN, reason for taking medication: N/A If this is a controlled substance do you receive this or any other controlled medication from any other doctor or facility: N/A Date of last refill (see medication tab): 02.28.2024 (7) Medication name: atorvastatin (Lipitor) tablet Medication dosage: 80 mg (Miligrams Monthly quantity needed: 30 How many day supply requestin days Medication route: oral (PO) Medication administration time(s): daily If taking medication PRN, reason for taking medication: N/A If this is a controlled substance do you receive this or any other controlled medication from any other doctor or facility: N/A Date of last refill (see medication tab): 12.14.[address] [facility] Office Visiton 07-03-2024 Follow-up visit [id number] Sharron Joshi 1940 M Date Provider Department Center 07/03/2024 [id number] MUNOZ [facility] Family History Problem Relation Age of Onset Colon cancer Mother Comments: age 82 Coronary artery disease Father Comments: [place], age 57 No Known Problems Sister Diabetes Sister Hypertension Brother Prostate cancer Brother 74 Comments: alive age 80 No Known Problems Brother Comments: in ECF, alive age 88 Prostate cancer Brother 70 Dementia Brother Comments: in ECF age 92 Family Status - Relation Status Age at Mother Father Sister Alive Sister Alive Brother Alive Brother Alive Brother Alive Level of Service:[id number] [place] PPPS, SUBSEQ VISIT Reason for Visit and Comments: Medicare Annual Wellness Visit Subsequent [677] Normal [facility] PATINSon 07-03-2024 PATINS Personalized Prevent ative Plan for Brian Joshi - 07/03/2024 Medicare offers a range of preventative health benefits. Some of the tests and screenings are paid in full while others may be subject to a deductible, co-insurance, and / or copay. Some of these benefits include a comprehensive review of your medical history including lifestyle, illnesses that may run in your family, and various assessments and screenings as appropriate. After reviewing your medical record and screening and assessments performed today, your provider may have ordered immunizations, labs, imaging, and / or referrals for you. A list of these orders (if applicable) as well as your Preventative Care list are included within your After Visit Summary for your review. Other Preventative Recommendations: A preventive eye exam by an cash management specialist is recommended every 1-2 years to screen for glaucoma, cataracts, macular degeneration, and other eye disorders. A preventive dental visit is recommended every 6 months. Try to get at least 150 minutes of exercise per week or 10,000 steps per day on a pedometer. You need 1200-1500mg of calcium and 6371-1100 international units of vitamin D per day. It is possible to meet your calcium requirement with diet alone, but a vitamin D supplement is usually necessary to meet this goal. When exposed to the sun, use a sunscreen that protects against both UVA and UVB radiation with an SPF of 30 or greater. Reapply every 2-3 hours or after sweating, drying off with a towel, or swimming. Always wear a seat belt when traveling in a car. Always wear a helmet when riding a bicycle or a motorcycle Normal [facility] Progress Noteon 07-03-2024 Progress Note [facility] [address] [place] [address] [address] [facility] [address] Dept: [phone] Dept Chief Complaint: Brian Joshi is an 84 y.o. male here for an annual wellness visit. Assessment/Plan : Problem List Items Addressed This Visit Essential hypertension Relevant Orders CBC auto differential Comprehensive metabolic panel CAD (coronary artery disease) Hypercholesterolemia with hypertriglyceridemia Relevant Orders Lipid panel Type 2 diabetes mellitus with diabetic chronic kidney disease (HCC) Other Visit Diagnoses Encounter for subsequent annual wellness visit (AWV) in Medicare patient - Primary I have reviewed and reconciled the medication list with the patient today. Current Outpatient Medications Medication Sig Dispense Refill amLODIPine (Norvasc) 10 MG tablet Take 1 tablet (10 mg) by mouth daily. 90 tablet 1 Aspirin-Calcium Carbonate 81-777 MG tablet Take 81 mg by mouth in the morning. atorvastatin (Lipitor) 80 MG tablet Take 1 tablet (80 mg) by mouth daily. 90 tablet 3 chlorthalidone (Hygroton) 25 MG tablet Take 1 tablet (25 mg) by mouth daily. 90 tablet 1 glimepiride (Amaryl) 2 MG tablet TAKE 1 TABLET BY MOUTH TWICE DAILY 180 tablet 3 Glucose Blood (Blood Glucose Test) strip E11.9 Test 2 times a day & as needed for symptoms of irregular blood glucose. Dispense sufficient amount for indicated testing frequency plus additional to accommodate PRN testing needs. glucose blood (FREESTYLE LITE) test strip 1 each. hydrALAZINE (Apresoline) 25 MG tablet One tab TID 270 tablet 1 Lancets 1 each by Other route 2 times daily. 100 each 11 lisinopril 40 MG tablet Take 1 tablet (40 mg) by mouth daily. 90 tablet 1 nitroglycerin (Nitrostat) 0.[address] 0.3 mg under the tongue. ezetimibe (Zetia) 10 MG tablet TAKE 1 TABLET BY MOUTH DAILY (Patient not taking: Reported on 07/03/2024) 100 tablet 3 gabapentin (Neurontin) 300 MG capsule Take 1 capsule (300 mg) by mouth 2 times daily for 60 doses. Take with 2 Acetaminophen 500mg along with Gabapentin BID 60 capsule 2 No current facility-administered medications for this visit. Also reviewed during this visit: Meds Med Hx Surg Hx Fam Hx The following health maintenance schedule was reviewed with the patient and provided in printed form in the after visit summary: Health Maintenance Topic Date Due Depression Screening Never done RSV Immunization aged 60 or older (1 - 1-dose 60+ series) Never done Medicare Advantage Annual Wellness Visit Never done COVID-19 Vaccine (2022- season) 2024 Influenza Vaccine (1) 06/24/2024 DTaP/Tdap/Td Vaccines (2 - Td or Tdap) 11/16/2028 Pneumococcal Vaccine: 65+ Years Completed Zoster Vaccines Completed RSV Immunization under 20 Months Aged Out HIB Vaccines Aged Out Hepatitis B Vaccines Aged Out IPV Vaccines Aged Out Hepatitis A Vaccines Aged Out Meningococcal Vaccine Aged Out Rotavirus Vaccines Aged Out HPV Vaccines Aged Out List of current healthcare providers: Patient Care Team: Jose Clarke DO as PCP - General Orders Placed This Encounter Procedures CBC auto differential Standing Status: Future Number of Occurrences: 1 Standing Expiration Date: 07/03/2025 Comprehensive metabolic panel Standing Status: Future Number of Occurrences: 1 Standing Expiration Date: 07/03/2025 Lipid panel Standing Status: Future Number of Occurrences: 1 Standing Expiration Date: 07/03/2025 Review of Systems fairly well-controlled type II diabetic with history of heart disease, hypertension, hyperlipidemia presents for annual wellness exam. Glucose levels have been well. No change in vision or skin. No cardiac issues. No use of nitro. No exertional dyspnea chest pain or palpitations. No recurrent leg edema. Glucose levels have been fair. No recent heartburn or abdominal pain. Bowels are regular. No melena or blood. No dysuria. Intermittent use of Tylenol for low back pain. No recent sciatica. Physical Exam The physical exam is generally normal. Patient appears well, alert and oriented x 3, pleasant, cooperative. Vitals are as noted. No carotid bruits. Neck supple, no abnormal adenopathy, thyroid lesions or masses. Ears, nose and throat are normal without acute findings. Lungs are clear to auscultation. Heart is regular, without murmurs, gallops or ectopy. Abdomen is soft, non tender, without masses, hepatosplenomegaly, or bruits. Normal BS evident. Extremities are normal without edema. Peripheral pulses are fair. No worrisome skin lesions. Screening neurological exam is normal without focal deficits. Objective : BP 138/70 (BP Location: Right arm, Patient Position: Sitting, BP Cuff Size: Large adult) Pulse 67 Temp 36.6 ?C (97.8 ?F) (Temporal) Ht 6' 1 (1.854 m) Wt 177 lb (80.3 kg) SpO2 99% BMI 23.35 kg/m? No results found. Subje (more content not included)... Normal [facility] 36on 06-18-2024 36 Recent Visits Date Type Provider Dept 02/07/24 Office Visit Jose Clarke DO [facility] 11/08/23 Office Visit Jose Clarke DO [facility] Showing recent visits within past 365 days and meeting all other requirements Future Appointments Date Type Provider Dept 07/03/24 Appointment Jose Clarke DO [facility] Showing future appointments within next 90 days and meeting all other requirements Requested Prescriptions Pending Prescriptions Disp Refills glimepiride (Amaryl) 2 MG tablet [Pharmacy Med Name: Glimepiride 2 MG Oral Tablet] 180 tablet 3 Sig: TAKE 1 TABLET BY MOUTH TWICE DAILY Provider: Jose Clarke DO Overdue for visit: No If yes - patient scheduled? Yes Most recent labs completed in chart? Yes Verified pharmacy: yes Verified day(s) supplied: yes Verified refill(s) needed (previous prescription showing no refills in chart): Yes Have you received any controlled medications from any other provider? N/A Diabetes: Lab Results Component Value Date HGBA1C 9.2 (H) 02/07/2024 BUNCREATININ 19 02/07/2024 K 3.7 10/21/2023 NA 141 10/21/2023 LDL 89 06/17/2022 HDL 42 06/17/2022 CHOLESTEROLT 111 02/07/2024 TRIG 93 06/17/2022 Normal [facility] 25-hydroxyvitamin D3 [Mass/V ol]on 10-21-2023 Interpretation and review of laboratory results Normal [facility] Therapy is based on measurement of Total 25-OHD with the following classification levels: Less than 20 ng/mL: Indicative of Vit D deficiency 20-30 ng/mL: Suggests Vit D insufficiency Optimal: Greater than or equal to 30 ng/mL Test performed by [employer] Competitive Immunoassay, measuring Total Vitamin D, not individual fractions. [facility] CBC panel Auto (Bld)Ordered By: Bethany Salazar on 10-21-2023 Erythrocyte distribution width (RBC) [Ratio] 12.6 % 11.5 - 14.5 % [facility] Hematocrit (Bld) [Volume fraction] 40.8 % 40.0 - 52.0 % [facility] Hemoglobin (Bld) [Mass/Vol] 13.5 g/dL 13.0 - 18.0 g/dL [facility] Interpretation and review of laboratory results Abnormal [facility] MCH (RBC) [Entitic mass] 30.2 pg 26.0 - 34.0 pg [facility] MCHC (RBC) [Mass/Vol] 33.1 % 32.0 - 36.0 % [facility] MCV (RBC) [Entitic vol] 91.3 fL 80.0 - 98.0 fL [facility] Platelet mean volume (Bld) [Entitic vol] 9.3 fL 7.4 - 12.4 fL [facility] Comment on above: MPV is a calculated measurement using platelet volume ratio Platelets (Bld) [#/Vol] 420 10*3/uL 140 - 440 10*3/uL [facility] RBC (Bld) [#/Vol] 4.47 10*6/uL 4.40 - 5.9 0 10*6/uL [facility] WBC (Bld) [#/Vol] 11.9 10*3/uL High 3.6 - 10.7 10*3/uL [facility] Creatinine (U) [Mass/Vol]on 10-21-2023 CREATININE, URINE 430.3 mg/dL No Range [facility] PTH, intacton 10-21-2023 Parathyrin.intact [Mass/Vol] 85.1 pg/mL High 7.5 - 53.5 pg/mL [facility] Parathyrin.intact [Mass/Vol] on 10-21-2023 Interpretation and review of laboratory results Abnormal [facility] Protein, urine, randomon Interpretation and review of laboratory results Abnormal [facility] Protein (U) [Mass/Vol] 28 mg/dL High 0 - 12 mg/dL [facility] Renal function 2000 panelon 10-21-2023 Albumin [Mass/Vol] 4.1 g/dL 3.5 - 5.0 g/dL [facility] Anion gap [Moles/Vol] 11 mmol/L 3 - 13 mmol/L [facility] Calcium [Mass/Vol] 9.1 mg/dL 8.4 - 10. 4 mg/dL [facility] Chloride [Moles/Vol] 105 mmol/L 98 - 10 7 mmol/L [facility] CO2 [Moles/Vol] 25 mmol/L 22 - 30 mmol/L [facility] Creatinine [Mass/Vol] 1.73 mg/dL High 0.66 - 1.25 mg/dL [facility] GFR/1.73 sq M.predicted MDRD (S/P/Bld) [Vol rate/Area] 38.9 mL/min/{1.73_m2} Low - PINF [facility] Comment on above: Calculation based on the Chronic Kidney Disease Epidemiology Collaboration (CKD-EPI) equation refit without adjustment for race Glucose [Mass/Vol] 219 mg/dL High 70 - 100 mg/dL [facility] Interpretation and review of laboratory results Abnormal [facility] Phosphate [Mass/Vol] 3.1 mg/dL 2.5 - 4 .5 mg/dL [facility] Potassium [Moles/Vol] 3.7 mmol/L 3.5 - 5.1 mmol/L [facility] Sodium [Moles/Vol] 141 mmol/L 135 - 145 mmol/L [facility] Urea nitrogen [Mass/Vol] 35 mg/dL High 9 - 20 mg/dL [facility] Vitamin D Deficiency Screeni ng (Vit D 25)on 10-21-2023 25-hydroxyvitamin D3 [Mass/Vol] 34 ng/mL 30 - 100 ng/mL [facility] Absolute lymphocyte countOrd ered By: Dr. Quesada on 02-03-2023 Lymphocytes Auto (Unsp spec) [#/Vol] 1.42 10*3/uL 0.83-4.51 [facility] Basophil percentageOrdered B y: Dr. Quesada on 02-03-2023 Basophils/100 WBC (Bld) 0.9 % 0-1 [facility] Chloride [Moles/Vol] 106 mmol/L 98-107 [facility] Eosinophils/100 WBC (Bld) 0.8 % 0-5 [facility] Glucose [Mass/Vol] 235 mg/dL 74-106 [facility] Comment on above: Glucose result great er than or equal to 200 mg/dLsuggests DIABETES MELLITUS per A.D.A. criteria. Neutrophils (Bld) [#/Vol] 8.1 10*3/uL 2.0-7.7 [facility] Neutrophils/100 WBC (Bld) 74.8 % 47-70 [facility] Potassium [Moles/Vol] 3.8 mmol/L 3.5-5.1 [facility] Sodium [Moles/Vol] 140 mmol/L 136-145 [facility] WBC (Bld) [#/Vol] 10.8 10*3/uL 4.4-11.0 [facility] Blood erythrocytes count (nu mber/volume)Ordered By: Dr. Quesada on 02-03-2023 RBC (Bld) [#/Vol] 4.58 10*6/uL 4.6-6.2 [facility] Blood hemoglobin measurement (mass/volume)Ordered By: Dr. Quesada on 02-03-2023 Hemoglobin (Bld) [Mass/Vol] 13.9 g/dL 13.0-16.5 [facility] Blood lymphocytes/100 leukoc ytesOrdered By: Dr. Quesada on 02-03-2023 Lymphocytes/100 WBC (Bld) 13.1 % 19-41 [facility] Blood monocytes/100 leukocyt esOrdered By: Dr. Quesada on 02-03-2023 Monocytes/100 WBC (Bld) 9.3 % 0-10 [facility] Blood platelet mean volumeOr dered By: Dr. Quesada on 02-03-2023 Platelet mean volume (Bld) [Entitic vol] 9.9 fL 6.2-12.0 [facility] Determination of erythrocyte mean corpuscular volume (MCV)Ordered By: Dr. Quesada on 02-03-2023 MCV (RBC) [Entitic vol] 94.3 fL 80-94 [facility] Hematocrit Auto (Bld) [Volum e fraction]Ordered By: Dr. Quesada on 02-03-2023 Hematocrit (Bld) [Volume fraction] 43.2 % 40-54 [facility] Laboratory - Chemistry and C hemistry - challengeOrdered By: Dr. Quesada on 02-03-2023 CO2 [Moles/Vol] 27.0 mmol/L 21.0-32.0 [facility] Urea nitrogen/Creatinine [Mass ratio] 25.9 mg/mg 10-20 [facility] Laboratory - Hematology and Cell countsOrdered By: Dr. Quesada on 02-03-2023 Erythrocyte distribution width (RBC) [Entitic vol] 43.9 fL 35.1-43.9 [facility] Erythrocyte distribution width (RBC) [Ratio] 12.7 % 11.6-14.6 [facility] Immature granulocytes/100 WBC (Bld) 1.100 % 0.0-0.9 [facility] Comment on above: IG% - Immature Granu locytes (promyelocytes, myelocytes and metamyelocytes) > 1% indicates that a LEFT SHIFT is Present. MCH (RBC) [Entitic mass] 30.3 pg 27.0-32.0 [facility] Nucleated RBC/100 WBC (Bld) [Ratio] 0 % 0-5 [facility] MCHC Auto (RBC) [Mass/Vol]Or dered By: Dr. Quesada on 02-03-2023 MCHC (RBC) [Mass/Vol] 32.2 g/dL 32-36 [facility] No Panel InformationOrdered By: Dr. Quesada on 02-03-2023 Estimated Creatinine Clearance Calc 34.60 ml/min [facility] Estimated GFR (MDRD) Amer 53 mL/min >60 [facility] Comment on above: GFR Calc Estimated GFR (MDRD) Non-Af Amer 44 mL/min >60 [facility] Comment on above: Non- GFR Calc Platelets bldOrdered By: Dr. Quesada on 02-03-2023 Platelets (Bld) [#/Vol] 426 10*3/uL 150-450 [facility] Serum or plasma calcium galen urement (mass/volume)Ordered By: Dr. Quesada on 02-03-2023 Calcium [Mass/Vol] 9.3 mg/dL 8.5-10.1 [facility] Serum or plasma creatinine m easurement (mass/volume)Ordered By: Dr. Quesada on 02-03-2023 Creatinine [Mass/Vol] 1.62 mg/dL 0.70-1.30 [facility] Comment on above: The validity of the calculated GFR & GFRAA in patients over 70 years has not been determined. Clinical correlation is essential. Serum or plasma urea nitroge n measurement (mass/volume)Ordered By: Dr. Quesada on 02-03-2023 Urea nitrogen [Mass/Vol] 42 mg/dL 7-18 [facility] Thin prep Papanicolaou smear with manual screeningOrdered By: Dr. Quesada on 02-03-2023 Thin prep Papanicolaou smear with manual screening 7 5-15 [facility] Basic metabolic 1998 panelon 10-27-2022 Anion gap [Moles/Vol] 7 mmol/L 3 - 13 mmol/L [facility] Calcium [Mass/Vol] 9.4 mg/dL 8.4 - 10. 4 mg/dL [facility] Chloride [Moles/Vol] 108 mmol/L High 98 - 10 7 mmol/L [facility] CO2 [Moles/Vol] 27 mmol/L 22 - 30 mmol/L [facility] Creatinine [Mass/Vol] 1.50 mg/dL High 0.66 - 1.25 mg/dL [facility] GFR/1.73 sq M.predicted MDRD (S/P/Bld) [Vol rate/Area] 46.5 mL/min/{1.73_m2} Low - PINF [facility] Comment on above: Calculation based on the Chronic Kidney Disease Epidemiology Collaboration (CKD-EPI) equation refit without adjustment for race Glucose [Mass/Vol] 203 mg/dL High 70 - 100 mg/dL [facility] Interpretation and review of laboratory results Abnormal [facility] Potassium [Moles/Vol] 3.8 mmol/L 3.5 - 5.1 mmol/L [facility] Sodium [Moles/Vol] 141 mmol/L 135 - 145 mmol/L [facility] Urea nitrogen [Mass/Vol] 39 mg/dL High 9 - 20 mg/dL [facility] Creatinine (U) [Mass/Vol]on 10-27-2022 CREATININE, URINE 195.8 mg/dL No Range [facility] No Panel Informationon 10-27 [facility] [employer] PTH, intacton 10-27-2022 Parathyrin.intact [Mass/Vol] 42.0 pg/mL 7.5 - 53.5 pg/mL [facility] Parathyrin.intact [Mass/Vol] on 10-27-2022 Interpretation and review of laboratory results Normal [facility] Protein, urine, randomon Interpretation and review of laboratory results Abnormal [facility] Protein (U) [Mass/Vol] 21 mg/dL High 0 - 12 mg/dL [facility] Glucose Glucometer (BldC) [M ass/Vol]on 09-13-2022 Glucose [Mass/Vol] 96 mg/dL 74-106 [facility] Work Phone: Comment on above: MANAGEMENT OF PATIEN T CARE PER NURSING PROTOCOL Absolute lymphocyte counton 09-09-2022 Lymphocytes Auto (Unsp spec) [#/Vol] 2.18 10*3/uL 0.83-4.51 [facility] Work Phone: Basophil percentageon 2021 Basophils/100 WBC (Bld) 1.6 % 0-1 [facility] Work Phone: Chloride [Moles/Vol] 108 mmol/L 98-107 [facility] Work Phone: Eosinophils/100 WBC (Bld) 7.6 % 0-5 [facility] Work Phone: Glucose [Mass/Vol] 108 mg/dL 74-106 [facility] Work Phone: Comment on above: Fasting Glucose resu lt from 100 to 125 mg/dL suggests IMPAIRED HOMEOSTASIS per A.D.A. criteria. Neutrophils (Bld) [#/Vol] 6.8 10*3/uL 2.0-7.7 [facility] Work Phone: Neutrophils/100 WBC (Bld) 58.9 % 47-70 [facility] Work Phone: Potassium [Moles/Vol] 3.9 mmol/L 3.5-5.1 [facility] Work Phone: Sodium [Moles/Vol] 141 mmol/L 136-145 [facility] Work Phone: WBC (Bld) [#/Vol] 11.6 10*3/uL 4.4-11.0 [facility] Work Phone: Blood erythrocytes count (nu mber/volume)on 09-09-2022 RBC (Bld) [#/Vol] 3.25 10*6/uL 4.6-6.2 [facility] Work Phone: Blood hemoglobin measurement (mass/volume)on 09-09-2022 Hemoglobin (Bld) [Mass/Vol] 9.7 g/dL 13.0-16.5 [facility] Work Phone: Blood lymphocytes/100 leukoc yteson 09-09-2022 Lymphocytes/100 WBC (Bld) 18.8 % 19-41 [facility] Work Phone: Blood monocytes/100 leukocyt eson 09-09-2022 Monocytes/100 WBC (Bld) 11.3 % 0-10 [facility] Work Phone: Blood platelet mean volumeon 09-09-2022 Platelet mean volume (Bld) [Entitic vol] 8.6 fL 6.2-12.0 [facility] Work Phone: Determination of erythrocyte mean corpuscular volume (MCV)on 09-09-2022 MCV (RBC) [Entitic vol] 94.8 fL 80-94 [facility] Work Phone: Hematocrit Auto (Bld) [Volum e fraction]on 09-09-2022 Hematocrit (Bld) [Volume fraction] 30.8 % 40-54 [facility] Work Phone: Laboratory - Chemistry and C hemistry - challengeon 09-09-2022 CO2 [Moles/Vol] 29.0 mmol/L 21.0-32.0 [facility] Work Phone: Urea nitrogen/Creatinine [Mass ratio] 18.8 mg/mg 10-20 [facility] Work Phone: Laboratory - Hematology and Cell countson 09-09-2022 Erythrocyte distribution width (RBC) [Entitic vol] 46.0 fL 35.1-43.9 [facility] Work Phone: Erythrocyte distribution width (RBC) [Ratio] 13.2 % 11.6-14.6 [facility] Work Phone: Immature granulocytes/100 WBC (Bld) 1.800 % 0.0-0.9 [facility] Work Phone: Comment on above: IG% - Immature Granu locytes (promyelocytes, myelocytes and metamyelocytes) > 1% indicates that a LEFT SHIFT is Present. MCH (RBC) [Entitic mass] 29.8 pg 27.0-32.0 [facility] Work Phone: Nucleated RBC/100 WBC (Bld) [Ratio] 0 % 0-5 [facility] Work Phone: [phone] MCHC Auto (RBC) [Mass/Vol]on 09-09-2022 MCHC (RBC) [Mass/Vol] 31.5 g/dL 32-36 [facility] Work Phone: No Panel Informationon 09-09 Estimated Creatinine Clearance Calc 46.08 ml/min [facility] Work Phone: [phone] Estimated GFR (MDRD) Amer 64 mL/min >60 [facility] Work Phone: Comment on above: GFR Calc Estimated GFR (MDRD) Non-Af Amer 53 mL/min >60 [facility] Work Phone: Comment on above: Non- GFR Calc Platelets bldon 09-09-2022 Platelets (Bld) [#/Vol] 560 10*3/uL 150-450 [facility] Work Phone: [phone] Serum or plasma calcium galen urement (mass/volume)on 09-09-2022 Calcium [Mass/Vol] 8.6 mg/dL 8.5-10.1 [facility] Work Phone: [phone] Serum or plasma creatinine m easurement (mass/volume)on 09-09-2022 Creatinine [Mass/Vol] 1.38 mg/dL 0.70-1.30 [facility] Work Phone: Comment on above: The validity of the calculated GFR & GFRAA in patients over 70 years has not been determined. Clinical correlation is essential. Serum or plasma urea nitroge n measurement (mass/volume)on 09-09-2022 Urea nitrogen [Mass/Vol] 26 mg/dL 7-18 [facility] Work Phone: [phone] Thin prep Papanicolaou smear with manual screeningon 09-09-2022 Thin prep Papanicolaou smear with manual screening 4 5-15 [facility] Work Phone: [phone] Absolute lymphocyte counton 09-01-2022 Lymphocytes Auto (Unsp spec) [#/Vol] 1.47 10*3/uL 0.83-4.51 [facility] Work Phone: Basophil percentageon 2021 Basophils/100 WBC (Bld) 0.9 % 0-1 [facility] Work Phone: Bilirubin [Mass/Vol] 0.70 mg/dL 0.20-1.00 [facility] Work Phone: Comment on above: For patients on eltr ombopag therapy, use of Dimension Riley TBIL is not recommended. Chloride [Moles/Vol] 110 mmol/L 98-107 [facility] Work Phone: Eosinophils/100 WBC (Bld) 3.3 % 0-5 [facility] Work Phone: Glucose [Mass/Vol] 133 mg/dL 74-106 [facility] Work Phone: Comment on above: Fasting Glucose resu lt greater than or equal to 126 mg/dL suggests DIABETES MELLITUS per A.D.A. criteria. Neutrophils (Bld) [#/Vol] 8.4 10*3/uL 2.0-7.7 [facility] Work Phone: Neutrophils/100 WBC (Bld) 69.9 % 47-70 [facility] Work Phone: Potassium [Moles/Vol] 3.3 mmol/L 3.5-5.1 [facility] Work Phone: Protein [Mass/Vol] 5.4 g/dL 6.4-8.2 [facility] Work Phone: Sodium [Moles/Vol] 142 mmol/L 136-145 [facility] Work Phone: WBC (Bld) [#/Vol] 12.0 10*3/uL 4.4-11.0 [facility] Work Phone: Blood erythrocytes count (nu mber/volume)on 09-01-2022 RBC (Bld) [#/Vol] 3.09 10*6/uL 4.6-6.2 [facility] Work Phone: Blood hemoglobin measurement (mass/volume)on 09-01-2022 Hemoglobin (Bld) [Mass/Vol] 9.8 g/dL 13.0-16.5 [facility] Work Phone: Blood lymphocytes/100 leukoc yteson 09-01-2022 Lymphocytes/100 WBC (Bld) 12.3 % 19-41 [facility] Work Phone: Blood manual differential co mment interpretation (narrative result)on 09-01-2022 Manual differential comment Ancelmo (Bld) [Interp] SCANNED [facility] Work Phone: Blood monocytes/100 leukocyt eson 09-01-2022 Monocytes/100 WBC (Bld) 13.1 % 0-10 [facility] Work Phone: Blood platelet mean volumeon 09-01-2022 Platelet mean volume (Bld) [Entitic vol] 9.7 fL 6.2-12.0 [facility] Work Phone: Determination of erythrocyte mean corpuscular volume (MCV)on 09-01-2022 MCV (RBC) [Entitic vol] 92.6 fL 80-94 [facility] Work Phone: Glucose Glucometer (BldC) [M ass/Vol]on 09-01-2022 Glucose [Mass/Vol] 171 mg/dL 74-106 [facility] Work Phone: Comment on above: MANAGEMENT OF PATIEN T CARE PER NURSING PROTOCOL Hematocrit Auto (Bld) [Volum e fraction]on 09-01-2022 Hematocrit (Bld) [Volume fraction] 28.6 % 40-54 [facility] Work Phone: Laboratory - Chemistry and C hemistry - challengeon 09-01-2022 ALP [Catalytic activity/Vol] 62 U/L 45-117 [facility] Work Phone: [phone] ALT [Catalytic activity/Vol] 10 U/L 16-61 [facility] Work Phone: [phone] CO2 [Moles/Vol] 29.0 mmol/L 21.0-32.0 [facility] Work Phone: [phone] Globulin (S) [Mass/Vol] 3.2 g/dL 2.2-4.2 [facility] Work Phone: [phone] Urea nitrogen/Creatinine [Mass ratio] 20.0 mg/mg 10-20 [facility] Work Phone: [phone] Laboratory - Hematology and Cell countson 09-01-2022 Erythrocyte distribution width (RBC) [Entitic vol] 43.7 fL 35.1-43.9 [facility] Work Phone: [phone] Erythrocyte distribution width (RBC) [Ratio] 12.9 % 11.6-14.6 [facility] Work Phone: [phone] Immature granulocytes/100 WBC (Bld) 0.500 % 0.0-0.9 [facility] Work Phone: [phone] Comment on above: IG% - Immature Granu locytes (promyelocytes, myelocytes and metamyelocytes) > 1% indicates that a LEFT SHIFT is Present. MCH (RBC) [Entitic mass] 31.7 pg 27.0-32.0 [facility] Work Phone: [phone] Nucleated RBC/100 WBC (Bld) [Ratio] 0 % 0-5 [facility] Work Phone: [phone] MCHC Auto (RBC) [Mass/Vol]on 09-01-2022 MCHC (RBC) [Mass/Vol] 34.3 g/dL 32-36 [facility] Work Phone: [phone] No Panel Informationon 09-01 Estimated Creatinine Clearance Calc 48.91 ml/min [facility] Work Phone: [phone] Estimated GFR (MDRD) Amer 68 mL/min >60 [facility] Work Phone: [phone] Comment on above: GFR Calc Estimated GFR (MDRD) Non-Af Amer 56 mL/min >60 [facility] Work Phone: Comment on above: Non- GFR Calc Platelets bldon 09-01-2022 Platelets (Bld) [#/Vol] 268 10*3/uL 150-450 [facility] Work Phone: Review by pathologiston Pathologist review Ancelmo (Unsp spec) [Interp] Reviewed [facility] Work Phone: Comment on above: Previous reported re sult: Gissel ranulfo Edited by: RGOAMANDA on 09/02/22:940Leukocytosis. Normocytic anemia.Clinical correlation necessary.Billy Munguia M.D. 09/02/22 AMENDED REPORT 09/02/22940 PATH REV previously reported as: February ranulfo Serum or plasma albumin galen urement (mass/volume)on 09-01-2022 Albumin [Mass/Vol] 2.2 g/dL 3.2-5.0 [facility] Work Phone: [phone] Serum or plasma albumin/glob ulin mass ratioon 09-01-2022 Albumin/Globulin [Mass ratio] 0.7 {ratio} 0.9-2.4 [facility] Work Phone: Serum or plasma calcium galen urement (mass/volume)on 09-01-2022 Calcium [Mass/Vol] 8.2 mg/dL 8.5-10.1 [facility] Work Phone: Serum or plasma creatinine m easurement (mass/volume)on 09-01-2022 Creatinine [Mass/Vol] 1.30 mg/dL 0.70-1.30 [facility] Work Phone: Comment on above: The validity of the calculated GFR & GFRAA in patients over 70 years has not been determined. Clinical correlation is essential. Serum or plasma urea nitroge n measurement (mass/volume)on 09-01-2022 Urea nitrogen [Mass/Vol] 26 mg/dL 7-18 [facility] Work Phone: Thin prep Papanicolaou smear with manual screeningon 09-01-2022 Thin prep Papanicolaou smear with manual screening 22 U/L 15-37 [facility] Work Phone: Thin prep Papanicolaou smear with manual screening 3 5-15 [facility] Work Phone: [phone] Whole blood hemoglobin A1c/t otal hemoglobin ratio (mass fraction)on 08-29-2022 HbA1c (Bld) [Mass fraction] 7.0 % 3.8-5.6 [facility] Work Phone: Comment on above: Normal < 5.7 % Predi abetic 5.7 - 6.4 % Diabetic >or= 6.5 % Please note range changes. Basophil percentageon 2021 Chloride [Moles/Vol] 107 mmol/L 98-107 [facility] Work Phone: [phone] Glucose [Mass/Vol] 180 mg/dL 74-106 [facility] Work Phone: Comment on above: Fasting Glucose resu lt greater than or equal to 126 mg/dL suggests DIABETES MELLITUS per A.D.A. criteria. Potassium [Moles/Vol] 3.7 mmol/L 3.5-5.1 [facility] Work Phone: Comment on above: Slight Hemolysis, Re sult may be falsely increased. Sodium [Moles/Vol] 140 mmol/L 136-145 [facility] Work Phone: WBC (Bld) [#/Vol] 19.3 10*3/uL 4.4-11.0 [facility] Work Phone: [phone] Blood erythrocytes count (nu mber/volume)on 08-28-2022 RBC (Bld) [#/Vol] 4.45 10*6/uL 4.6-6.2 [facility] Work Phone: [phone] Blood hemoglobin measurement (mass/volume)on 08-28-2022 Hemoglobin (Bld) [Mass/Vol] 13.6 g/dL 13.0-16.5 [facility] Work Phone: [phone] Blood platelet mean volumeon 08-28-2022 Platelet mean volume (Bld) [Entitic vol] 9.7 fL 6.2-12.0 [facility] Work Phone: Determination of erythrocyte mean corpuscular volume (MCV)on 08-28-2022 MCV (RBC) [Entitic vol] 92.6 fL 80-94 [facility] Work Phone: [phone] Hematocrit Auto (Bld) [Volum e fraction]on 08-28-2022 Hematocrit (Bld) [Volume fraction] 41.2 % 40-54 [facility] Work Phone: [phone] INR in Blood by Coagulation assayon 08-28-2022 INR Coag (Bld) [Relative time] 1.0 {INR} [facility] Work Phone: [phone] Laboratory - Chemistry and C hemistry - challengeon 08-28-2022 CO2 [Moles/Vol] 25.0 mmol/L 21.0-32.0 [facility] Work Phone: [phone] Urea nitrogen/Creatinine [Mass ratio] 22.4 mg/mg 10-20 [facility] Work Phone: [phone] Laboratory - Coagulationon 10-28-2021 aPTT Coag (Bld) [Time] 28.0 s 24.1-36.2 [facility] Work Phone: [phone] PT Coag (PPP) [Time] 12.9 s 11.7-14.9 [facility] Work Phone: [phone] Laboratory - Hematology and Cell countson 08-28-2022 Erythrocyte distribution width (RBC) [Entitic vol] 43.1 fL 35.1-43.9 [facility] Work Phone: [phone] Erythrocyte distribution width (RBC) [Ratio] 12.7 % 11.6-14.6 [facility] Work Phone: [phone] MCH (RBC) [Entitic mass] 30.6 pg 27.0-32.0 [facility] Work Phone: MCHC Auto (RBC) [Mass/Vol]on 08-28-2022 MCHC (RBC) [Mass/Vol] 33.0 g/dL 32-36 [facility] Work Phone: No Panel Informationon 08-28 Estimated Creatinine Clearance Calc 39.02 ml/min [facility] Work Phone: Estimated GFR (MDRD) Amer 53 mL/min >60 [facility] Work Phone: Comment on above: GFR Calc Estimated GFR (MDRD) Non-Af Amer 44 mL/min >60 [facility] Work Phone: Comment on above: Non- GFR Calc Platelets bldon 08-28-2022 Platelets (Bld) [#/Vol] 352 10*3/uL 150-450 [facility] Work Phone: Serum or plasma calcium galen urement (mass/volume)on 08-28-2022 Calcium [Mass/Vol] 9.0 mg/dL 8.5-10.1 [facility] Work Phone: Serum or plasma creatinine m easurement (mass/volume)on 08-28-2022 Creatinine [Mass/Vol] 1.61 mg/dL 0.70-1.30 [facility] Work Phone: Comment on above: The validity of the calculated GFR & GFRAA in patients over 70 years has not been determined. Clinical correlation is essential. Serum or plasma urea nitroge n measurement (mass/volume)on 08-28-2022 Urea nitrogen [Mass/Vol] 36 mg/dL 7-18 [facility] Work Phone: Thin prep Papanicolaou smear with manual screeningon 08-28-2022 Thin prep Papanicolaou smear with manual screening 8 5-15 [facility] Work Phone: CR Hip w/ Pelvis 2 or 3 View s Lefton 03-10-2022 CR Hip w/ Pelvis 2 or 3 Views Left Patient Name: BRIAN JOSHI Diagnostic Radiology ACCESSION EXAM DATE/TIME PROCEDURE ORDERING PROVIDER [id number] 03/10/2022 10:11 EDT CR Hip w/ Pelvis 2 or 3 DO CLARKE EUGENE F. Views Left n CPT code 57266 Reason For Exam (CR Hip w/ Pelvis 2 or 3 Views Left n) Acute left hip pain, M25.552 Report CLINICAL INFORMATION: Low back pain. Left hip pain. LUMBAR SPINE: AP, lateral, and bilateral oblique views of the spine are provided. The examination is compared to a previous study dated 05/13/2021. FINDINGS: The alignment of the lumbar spine is within normal limits. A mild compression fracture is redemonstrated through the superior endplate of L4. This is unchanged. The remaining vertebral body heights are maintained. Moderate posterior facet hypertrophy is apparent at L3-4, L4-5, and L5-S1. IMPRESSION: 1. Old mild L4 compression fracture. 2. Moderate degenerative changes. 3. No acute findings. LEFT HIP: AP view of the pelvis and AP and frog-leg lateral views of the left hip are provided. There are no comparison studies. FINDINGS: Mild symmetric degenerative changes are noted about both hips. There is no fracture or dislocation. The sacroiliac joints are symmetric bilaterally without focal abnormality. The bone mineralization is within normal limits. IMPRESSION: 1. Mild symmetric degenerative changes. 2. No acute findings. Report Dictated on Final Dictating Physician: MD RICK JEFFREY Signed Date and Time: 03/10/2022 9:50 pm Signed by: MD RICK JEFFREY Transcribed Date and Time: 03/10/2022 9:52 Normal [facility] CR Spine Lumbosacral 4+ View son 03-10-2022 CR Spine Lumbosacral 4+ Views [facility]: [id number] ACCESSION EXAM DATE/TIME PROCEDURE ORDERING PROVIDER [id number] 03/10/2022 10:11 EDT CR Spine Lumbosacral 4+ DO CLARKE EUGENE F. Views CPT code 97860 Reason For Exam (CR Spine Lumbosacral 4+ Views) left thigh pain Report CLINICAL INFORMATION: Low back pain. Left hip pain. LUMBAR SPINE: AP, lateral, and bilateral oblique views of the spine are provided. The examination is compared to a previous study dated 05/13/2021. FINDINGS: The alignment of the lumbar spine is within normal limits. A mild compression fracture is redemonstrated through the superior endplate of L4. This is unchanged. The remaining vertebral body heights are maintained. Moderate posterior facet hypertrophy is apparent at L3-4, L4-5, and L5-S1. IMPRESSION: 1. Old mild L4 compression fracture. 2. Moderate degenerative changes. 3. No acute findings. LEFT HIP: AP view of the pelvis and AP and frog-leg lateral views of the left hip are provided. There are no comparison studies. FINDINGS: Mild symmetric degenerative changes are noted about both hips. There is no fracture or dislocation. The sacroiliac joints are symmetric bilaterally without focal abnormality. The bone mineralization is within normal limits. IMPRESSION: 1. Mild symmetric degenerative changes. 2. No acute findings. Report Dictated on Final Dictating Physician: MD RICK JEFFREY Signed Date and Time: 03/10/2022 9:50 pm Signed by: MD RICK JEFFREY Transcribed Date and Time: 03/10/2022 9:52 Normal [facility] XR HIP LEFT (2-3 VIEWS)on Patient Name: BRIAN BRADLEY Diagnostic Radiology ACCESSION EXAM DATE/TIME PROCEDURE ORDERING PROVIDER [id number] 03/10/2022 10:11 EDT CR Hip w/ Pelvis 2 or 3 DO CLARKE EUGENE F. Views Left n CPT code 62456 Reason For Exam (CR Hip w/ Pelvis 2 or 3 Views Left n) Acute left hip pain, M25.552 Report CLINICAL INFORMATION: Low back pain. Left hip pain. LUMBAR SPINE: AP, lateral, and bilateral oblique views of the spine are provided. The examination is compared to a previous study dated 05/13/2021. FINDINGS: The alignment of the lumbar spine is within normal limits. A mild compression fracture is redemonstrated through the superior endplate of L4. This is unchanged. The remaining vertebral body heights are maintained. Moderate posterior facet hypertrophy is apparent at L3-4, L4-5, and L5-S1. IMPRESSION: 1. Old mild L4 compression fracture. 2. Moderate degenerative changes. 3. No acute findings. LEFT HIP: AP view of the pelvis and AP and frog-leg lateral views of the left hip are provided. There are no comparison studies. FINDINGS: Mild symmetric degenerative changes are noted about both hips. There is no fracture or dislocation. The sacroiliac joints are symmetric bilaterally without focal abnormality. The bone mineralization is within normal limits. IMPRESSION: 1. Mild symmetric degenerative changes. 2. No acute findings. Report Dictated on --- Final --- Dictating Physician: MD RICK JEFFREY Signed Date and Time: 03/10/2022 9:50 pm Signed by: MD RICK JEFFREY Transcribed Date and Time: 03/10/2022 9:52 [facility] Aurelio Rick MD - 03/10/2022 Patient Name: BRIAN JOSHI Diagnostic Radiology ACCESSION EXAM DATE/TIME PROCEDURE ORDERING PROVIDER [id number] 03/10/2022 10:11 EDT CR Hip w/ Pelvis 2 or 3 DO CLARKE EUGENE F. Views Left n CPT code 09881 Reason For Exam (CR Hip w/ Pelvis 2 or 3 Views Left n) Acute left hip pain, M25.552 Report CLINICAL INFORMATION: Low back pain. Left hip pain. LUMBAR SPINE: AP, lateral, and bilateral oblique views of the spine are provided. The examination is compared to a previous study dated 05/13/2021. FINDINGS: The alignment of the lumbar spine is within normal limits. A mild compression fracture is redemonstrated through the superior endplate of L4. This is unchanged. The remaining vertebral body heights are maintained. Moderate posterior facet hypertrophy is apparent at L3-4, L4-5, and L5-S1. IMPRESSION: 1. Old mild L4 compression fracture. 2. Moderate degenerative changes. 3. No acute findings. LEFT HIP: AP view of the pelvis and AP and frog-leg lateral views of the left hip are provided. There are no comparison studies. FINDINGS: Mild symmetric degenerative changes are noted about both hips. There is no fracture or dislocation. The sacroiliac joints are symmetric bilaterally without focal abnormality. The bone mineralization is within normal limits. IMPRESSION: 1. Mild symmetric degenerative changes. 2. No acute findings. Report Dictated on --- Final --- Dictating Physician: MD RICK JEFFREY Signed Date and Time: 03/10/2022 9:50 pm Signed by: MD RICK JEFFREY Transcribed Date and Time: 03/10/2022 9:52 [facility] Work Phone: [facility] Work Phone: Radiology Study observation (narrative) [facility] Work Phone: XR LUMBAR SPINE (MIN 4 VIEWS )on 03-10-2022 Patient Name: BRIAN BRADLEY [facility]#: [id number] Diagnostic Radiology ACCESSION EXAM DATE/TIME PROCEDURE ORDERING PROVIDER [id number] 03/10/2022 10:11 EDT CR Spine Lumbosacral 4+ DO CLARKE EUGENE F. Views CPT code 68354 Reason For Exam (CR Spine Lumbosacral 4+ Views) left thigh pain Report CLINICAL INFORMATION: Low back pain. Left hip pain. LUMBAR SPINE: AP, lateral, and bilateral oblique views of the spine are provided. The examination is compared to a previous study dated 05/13/2021. FINDINGS: The alignment of the lumbar spine is within normal limits. A mild compression fracture is redemonstrated through the superior endplate of L4. This is unchanged. The remaining vertebral body heights are maintained. Moderate posterior facet hypertrophy is apparent at L3-4, L4-5, and L5-S1. IMPRESSION: 1. Old mild L4 compression fracture. 2. Moderate degenerative changes. 3. No acute findings. LEFT HIP: AP view of the pelvis and AP and frog-leg lateral views of the left hip are provided. There are no comparison studies. FINDINGS: Mild symmetric degenerative changes are noted about both hips. There is no fracture or dislocation. The sacroiliac joints are symmetric bilaterally without focal abnormality. The bone mineralization is within normal limits. IMPRESSION: 1. Mild symmetric degenerative changes. 2. No acute findings. Report Dictated on --- Final --- Dictating Physician: MD RICK JEFFREY Signed Date and Time: 03/10/2022 9:50 pm Signed by: MD RICK JEFFREY Transcribed Date and Time: 03/10/2022 9:52 [facility] Aurelio Rick MD - 03/10/2022 Patient Name: BRIAN JOSHI Diagnostic Radiology ACCESSION EXAM DATE/TIME PROCEDURE ORDERING PROVIDER [id number] 03/10/2022 10:11 EDT CR Spine Lumbosacral 4+ DO CLARKE EUGENE F. Views CPT code 71026 Reason For Exam (CR Spine Lumbosacral 4+ Views) left thigh pain Report CLINICAL INFORMATION: Low back pain. Left hip pain. LUMBAR SPINE: AP, lateral, and bilateral oblique views of the spine are provided. The examination is compared to a previous study dated 05/13/2021. FINDINGS: The alignment of the lumbar spine is within normal limits. A mild compression fracture is redemonstrated through the superior endplate of L4. This is unchanged. The remaining vertebral body heights are maintained. Moderate posterior facet hypertrophy is apparent at L3-4, L4-5, and L5-S1. IMPRESSION: 1. Old mild L4 compression fracture. 2. Moderate degenerative changes. 3. No acute findings. LEFT HIP: AP view of the pelvis and AP and frog-leg lateral views of the left hip are provided. There are no comparison studies. FINDINGS: Mild symmetric degenerative changes are noted about both hips. There is no fracture or dislocation. The sacroiliac joints are symmetric bilaterally without focal abnormality. The bone mineralization is within normal limits. IMPRESSION: 1. Mild symmetric degenerative changes. 2. No acute findings. Report Dictated on --- Final --- Dictating Physician: MD RICK JEFFREY Signed Date and Time: 03/10/2022 9:50 pm Signed by: MD RICK JEFFREY Transcribed Date and Time: 03/10/2022 9:52 [facility] Work Phone: Radiology Study observation (narrative) [facility] Work Phone: XR LUMBAR SPINE (MIN 4 VIEWS )Ordered By: Aurelio Rick on 03-10-2022 [facility] Work Phone: Creatinine, Ur Randomon 02- Creatinine, Ur Random 123.9 mg/dL Normal No Range [facility] Comment on above: Performed By: #### P TH3, VD25H ####[address] [place] [place] [address]#### RENL3, CRTUR, HEMOG, TPUR ####[facility] [place] [address] Hemogramon 12-07-2021 Erythrocyte distribution width (RBC) [Ratio] 13.7 % Normal 11.5-14.5 [facility] Comment on above: Performed By: #### P TH3, VD25H ####[address] [place] [address]#### RENL3, CRTUR, HEMOG, TPUR ####[facility] [place] [address] Hematocrit (Bld) [Volume fraction] 40.8 % Normal 40.0-52.0 [facility] Comment on above: Performed By: #### P TH3, VD25H ####[address] [place] [address]#### RENL3, CRTUR, HEMOG, TPUR ####[address] [place] [address] Hemoglobin (Bld) [Mass/Vol] 13.5 g/dL Normal 13.0-18.0 [facility] Comment on above: Performed By: #### P TH3, VD25H ####[address] [place] [address]#### RENL3, CRTUR, HEMOG, TPUR ####[facility] [place] [address] MCH (RBC) [Entitic mass] 30.4 pg Normal 26.0-34.0 [facility] Comment on above: Performed By: #### P TH3, VD25H ####[address] [place] [place] [address]#### RENL3, CRTUR, HEMOG, TPUR ####[facility] [place] [address] MCHC 33.0 % Normal 32.0-36.0 [facility] Comment on above: Performed By: #### P TH3, VD25H ####[address] [place] [address]#### RENL3, CRTUR, HEMOG, TPUR ####[facility] [place] [address] MCV (RBC) [Entitic vol] 92.1 fL Normal 80.0-98.0 [facility] Comment on above: Performed By: #### P TH3, VD25H ####[address] [place] [address]#### RENL3, CRTUR, HEMOG, TPUR ####[facility] [place] [address] Platelet mean volume (Bld) [Entitic vol] 7.6 fL Normal 7.4-10.4 [facility] Comment on above: Performed By: #### P TH3, VD25H ####[address] [facility] [place] [address]#### RENL3, CRTUR, HEMOG, TPUR ####[address] [place] [address] Platelets (Bld) [#/Vol] 375 10*3/uL Normal 140-440 [facility] Comment on above: Performed By: #### P TH3, VD25H ####[address] [place] [address]#### RENL3, CRTUR, HEMOG, TPUR ####[facility] [place] [address] RBC (Bld) [#/Vol] 4.43 10*6/uL Normal 4.40-5.90 [facility] Comment on above: Performed By: #### P TH3, VD25H ####[address] [place] [place] [address]#### RENL3, CRTUR, HEMOG, TPUR ####[facility] [place] [address] WBC (Bld) [#/Vol] 8.9 10*3/uL Normal 3.6-10.7 [facility] Comment on above: Performed By: #### P TH3, VD25H ####[place] [address] [place] [address]#### RENL3, CRTUR, HEMOG, TPUR ####[facility] [place] [address] PTH, Intacton 12-07-2021 PTH, Intact 68.3 pg/mL High 8.0-54.0 [facility] Comment on above: Performed By: #### P TH3, VD25H ####[place] [address] [place] [address]#### RENL3, CRTUR, HEMOG, TPUR ####[facility] [place] [address] Protein, Ur Randomon 022 Protein, Ur Random 15 mg/dL High No Range [facility] Comment on above: Performed By: #### P TH3, VD25H ####[address] [place] [address]#### RENL3, CRTUR, HEMOG, TPUR ####[address] [place] [address] Renal Functionon 12-07-2021 Calcium [Mass/Vol] 9.6 mg/dL Normal 8.4-10.4 [facility] Comment on above: Performed By: #### P TH3, VD25H ####[address] [place] [address]#### RENL3, CRTUR, HEMOG, TPUR ####[facility] [place] [address] Phosphate [Mass/Vol] 2.8 mg/dL Normal 2.5-4.5 [facility] Comment on above: Performed By: #### P TH3, VD25H ####[place] [address] [place] [address]#### RENL3, CRTUR, HEMOG, TPUR ####[facility] [place] [address] Anion gap [Moles/Vol] 4 mmol/L Normal 3-13 [facility] Comment on above: Performed By: #### P TH3, VD25H ####[address] [facility] [place] [address]#### RENL3, CRTUR, HEMOG, TPUR ####[facility] [place] [address] CO2 [Moles/Vol] 28 mmol/L Normal 22-30 [facility] Comment on above: Performed By: #### P TH3, VD25H ####[address] [place] [address]#### RENL3, CRTUR, HEMOG, TPUR ####[facility] [place] [address] Creatinine [Mass/Vol] 1.55 mg/dL High 0.52-1.25 [facility] Comment on above: Performed By: #### P TH3, VD25H ####[address] [place] [address]#### RENL3, CRTUR, HEMOG, TPUR ####[address] [place] [address] GFR/1.73 sq M.predicted among blacks MDRD (S/P/Bld) [Vol rate/Area] 48.0 mL/min/{1.73_m2} Abnormal >60 [facility] Comment on above: Performed By: #### P TH3, VD25H ####[address] [facility] [place] [address]#### RENL3, CRTUR, HEMOG, TPUR ####[address] [place] [address] GFR/1.73 sq M.predicted among non-blacks MDRD (S/P/Bld) [Vol rate/Area] 41.5 mL/min/{1.73_m2} Abnormal >60 [facility] Comment on above: Result Comment: KDIG O guidelines provide the following GFR categories: Stage GFR(ml/min/1.73 m2) Terms G1 >=90 Normal or high G2 60-89 Mildly decreased* G3a 45-59 Mildly to moderately decreased G3b 30-44 Moderately to severely decreased G4 15-29 Severely decreased G5 <15 Kidney failure *Relative to young adult level. In the absence of evidence of kidney damage, neither GFR category G1 nor G2 fulfill the criteria for CKD. The CKD-EPI equation is validated in individuals 18 years of age and older. Currently the best equation for estimating glomerular filtration rate (GFR) from serum creatinine in children is the Bedside Carter equation. It is less accurate in patients with extremes of muscle mass, restriction of dietary protein, ingestion of creatine, extra-renal metabolism of creatinine, or treatment with medications that affect renal tubular creatinine secretion. Performed By: #### P TH3, VD25H ####[address] [place] [address]#### RENL3, CRTUR, HEMOG, TPUR ####[address] [place] [address] Glucose [Mass/Vol] 137 mg/dL High 70-100 [facility] Comment on above: Performed By: #### P TH3, VD25H ####[address] [place] [address]#### RENL3, CRTUR, HEMOG, TPUR ####[address] [place] [address] Urea nitrogen [Mass/Vol] 33 mg/dL High 7-17 [facility] Comment on above: Performed By: #### P TH3, VD25H ####[address] [place] [address]#### RENL3, CRTUR, HEMOG, TPUR ####[address] [place] [address] Albumin [Mass/Vol] 4.2 g/dL Normal 3.5-5.0 [facility] Comment on above: Performed By: #### P TH3, VD25H ####[address] [place] [place] [facility] [address]#### RENL3, CRTUR, HEMOG, TPUR ####[address] [place] [address] Chloride [Moles/Vol] 110 mmol/L High 98-107 [facility] Comment on above: Performed By: #### P TH3, VD25H ####[place] [address] [place] [address]#### RENL3, CRTUR, HEMOG, TPUR ####[facility] [place] [address] Potassium [Moles/Vol] 4.1 mmol/L Normal 3.5-5.1 [facility] Comment on above: Performed By: #### P TH3, VD25H ####[place] [address] [place] [address]#### RENL3, CRTUR, HEMOG, TPUR ####[facility] [place] [address] Sodium [Moles/Vol] 141 mmol/L Normal 135-145 [facility] Comment on above: Performed By: #### P TH3, VD25H ####[address] [place] [address]#### RENL3, CRTUR, HEMOG, TPUR ####[address] [place] [address] Vit D 25-OH, Totalon 022 Vit D 25-OH, Total 46 ng/mL Normal 30-100 [facility] Comment on above: Result Comment: Ther apy is based on measurement of Total 25- OHD with the following classification levels: Less than 20 ng/mL: Indicative of Vit D deficiency 20-30 ng/mL: Suggests Vit D insufficiency Optimal: Greater than or equal to 30 ng/mL Test performed by [employer] Immuno[employer], measuring Total Vitamin D, not individual fractions. Performed By: #### P TH3, VD25H ####[place] [address] [place] [address]#### RENL3, CRTUR, HEMOG, TPUR ####[facility] [place] [address] CBCOrdered By: Radha beckman on 05-25-2021 Hematocrit (Bld) [Volume fraction] 36.2 % Low 40.0 - 52.0 % [facility] Work Phone: 1 Hemoglobin.gastroint estinal spec 1 Ql (Stl) 12.0 g/dL Low 13.0 - 18.0 g/dL [employer] Work Phone: [phone] Interpretation and review of laboratory results Abnormal [employer] Work Phone: 1 MCH (RBC) [Entitic mass] 30.6 pg 26.0 - 34.0 pg [facility] Work Phone: MCHC (RBC) [Mass/Vol] 33.0 % 32.0 - 36.0 % [facility] Work Phone: 1 MCV (RBC) [Entitic vol] 92.6 fL 80.0 - 98.0 fL [employer] Work Phone: 1 Platelet distribution width (Bld) [Ratio] 13.7 % 11.5 - 14.5 % [employer] Work Phone: Platelet mean volume (Bld) [Entitic vol] 7.4 fL 7.4 - 10.4 fL [employer] Work Phone: Platelets (Bld) [#/Vol] 319 10*3/uL 140 - 440 10*3/uL [facility] Work Phone: RBC (Bld) [#/Vol] 3.91 10*6/uL Low 4.40 - 5.9 0 10*6/uL [facility] Work Phone: WBC (Bld) [#/Vol] 9.0 10*3/uL 3.6 - 10.7 10*3/uL [facility] Work Phone: 1 Test Performed by [facility], [facility] Center[facility]erson[facility] , [place] [id number] [facility] Work Phone: [employer] Work Phone: Creatinine, Random UrineOrde red By: Radha Torres on 05-25-2021 Creatinine (U) [Mass/Vol] 203.6 mg/dL No Range [facility] Work Phone: [phone] Creatinine, Ur Randomon 08-0 Creatinine, Ur Random 203.6 mg/dL Normal No Range [facility] Comment on above: Performed By: #### C RTUR, RENL3, HEMOG, TPUR ####[address] [place] [address]#### VD25H, PTH3 ####[place] [address] [place] [facility] [place] [address] Hemogramon 05-25-2021 Erythrocyte distribution width (RBC) [Ratio] 13.7 % Normal 11.5-14.5 [facility] Comment on above: Performed By: #### C RTUR, RENL3, HEMOG, TPUR ####[address] [place] [address]#### VD25H, PTH3 ####[address] [place] [facility] [place] [address] Hematocrit (Bld) [Volume fraction] 36.2 % Low 40.0-52.0 [facility] Comment on above: Performed By: #### C RTUR, RENL3, HEMOG, TPUR ####[address] [place] [address]#### VD25H, PTH3 ####[address] [place] [facility] [place] [address] Hemoglobin (Bld) [Mass/Vol] 12.0 g/dL Low 13.0-18.0 [facility] Comment on above: Performed By: #### C RTUR, RENL3, HEMOG, TPUR ####[address] [place] [address]#### VD25H, PTH3 ####[address] [place] [facility] [place] [address] MCH (RBC) [Entitic mass] 30.6 pg Normal 26.0-34.0 [facility] Comment on above: Performed By: #### C RTUR, RENL3, HEMOG, TPUR ####[address] [place] [address]#### VD25H, PTH3 ####[address] [place] [address] MCHC 33.0 % Normal 32.0-36.0 [facility] Comment on above: Performed By: #### C RTUR, RENL3, HEMOG, TPUR ####[facility] [place] [address]#### VD25H, PTH3 ####[place] [address] [place] [address] MCV (RBC) [Entitic vol] 92.6 fL Normal 80.0-98.0 [facility] Comment on above: Performed By: #### C RTUR, RENL3, HEMOG, TPUR ####[place] [address] [place] [address]#### VD25H, PTH3 ####[place] [address] [place] [address] Platelet mean volume (Bld) [Entitic vol] 7.4 fL Normal 7.4-10.4 [facility] Comment on above: Performed By: #### C RTUR, RENL3, HEMOG, TPUR ####[place] [address] [place] [address]#### VD25H, PTH3 ####[place] [address] [place] [address] Platelets (Bld) [#/Vol] 319 10*3/uL Normal 140-440 [facility] Comment on above: Performed By: #### C RTUR, RENL3, HEMOG, TPUR ####[facility] [place] [address]#### VD25H, PTH3 ####[place] [address] [place] [address] RBC (Bld) [#/Vol] 3.91 10*6/uL Low 4.40-5.90 [facility] Comment on above: Performed By: #### C RTUR, RENL3, HEMOG, TPUR ####[place] [address] [place] [address]#### VD25H, PTH3 ####[place] [address] [place] [address] WBC (Bld) [#/Vol] 9.0 10*3/uL Normal 3.6-10.7 [facility] [employer] [facility] Comment on above: Performed By: #### C RTFARHAD, RENL3, HEMOG, TPUR ####[facility] [place] [address]#### VD25H, PTH3 ####[facility] [place] [address] No Panel InformationOrdered By: Radha Torres on 05-25-2021 Test Performed by [facility], [address] , [place], [place] [address] [facility] Work Phone: 1) [facility] Work Phone: [phone] PTH, Intacton 05-25-2021 PTH, Intact 77.0 pg/mL High 15.0-63.0 [facility] [employer] Comment on above: Performed By: #### C JUDSON, RENL3, HEMOG, TPUR ####[facility] [place] [address]#### VD25H, PTH3 ####[facility] [employer] [place] [address] PTH, IntactOrdered By: Miles Torres on 05-25-2021 Interpretation and review of laboratory results Abnormal [facility] Work Phone: [phone] Pth Intact 77 pg/mL High 15.0 - 63.0 pg/mL [facility] Work Phone: [phone] Test Performed by [facility], [address] [place], [place] [address] [facility] Work Phone: [phone] [facility] Work Phone: [phone] Protein, Ur Randomon 021 Protein, Ur Random 14 mg/dL High No Range [facility] [employer] Comment on above: Performed By: #### C RTUR, RENL3, HEMOG, TPUR ####[facility] [place] [address]#### VD25H, PTH3 ####[facility] [place] [address] Protein, urine, randomOrdere d By: Radha Torres on 05-25-2021 Interpretation and review of laboratory results Abnormal [facility] Work Phone: Protein (U) [Mass/Vol] 14 mg/dL High No Range [facility] Work Phone: Renal Functionon 05-25-2021 Calcium [Mass/Vol] 9.2 mg/dL Normal 8.4-10.4 [facility] Comment on above: Performed By: #### C RTUR, RENL3, HEMOG, TPUR ####[address] [place] [address]#### VD25H, PTH3 ####[place] [address] [place] [address] Anion gap [Moles/Vol] 6 mmol/L Normal 3-13 [facility] Comment on above: Performed By: #### C RTUR, RENL3, HEMOG, TPUR ####[address] [place] [address]#### VD25H, PTH3 ####[place] [address] [place] [address] CO2 [Moles/Vol] 26 mmol/L Normal 22-30 [facility] Comment on above: Performed By: #### C RTUR, RENL3, HEMOG, TPUR ####[address] [place] [address]#### VD25H, PTH3 ####[facility] [place] [address] Creatinine [Mass/Vol] 1.63 mg/dL High 0.52-1.25 [facility] Comment on above: Performed By: #### C RTUR, RENL3, HEMOG, TPUR ####[address] [place] [address]#### VD25H, PTH3 ####[facility] [place] [address] GFR/1.73 sq M.predicted among blacks MDRD (S/P/Bld) [Vol rate/Area] 45.4 mL/min/{1.73_m2} Abnormal >60 [facility] Comment on above: Performed By: #### C RTUR, RENL3, HEMOG, TPUR ####[address] [place] [place] [address]#### VD25H, PTH3 ####[place] [address] [place] [address] GFR/1.73 sq M.predicted among non-blacks MDRD (S/P/Bld) [Vol rate/Area] 39.2 mL/min/{1.73_m2} Abnormal >60 [facility] Comment on above: Result Comment: KDIG O guidelines provide the following GFR categories: Stage GFR(ml/min/1.73 m2) Terms G1 >=90 Normal or high G2 60-89 Mildly decreased* G3a 45-59 Mildly to moderately decreased G3b 30-44 Moderately to severely decreased G4 15-29 Severely decreased G5 <15 Kidney failure *Relative to young adult level. In the absence of evidence of kidney damage, neither GFR category G1 nor G2 fulfill the criteria for CKD. The CKD-EPI equation is validated in individuals 18 years of age and older. Currently the best equation for estimating glomerular filtration rate (GFR) from serum creatinine in children is the Bedside Carter equation. It is less accurate in patients with extremes of muscle mass, restriction of dietary protein, ingestion of creatine, extra-renal metabolism of creatinine, or treatment with medications that affect renal tubular creatinine secretion. Performed By: #### C RTUR, RENL3, HEMOG, TPUR ####[address] [place] [place] [address]#### VD25H, PTH3 ####[place] [address] [place] [address] Glucose [Mass/Vol] 87 mg/dL Normal 70-100 [facility] Comment on above: Performed By: #### C RTUR, RENL3, HEMOG, TPUR ####[address] [place] [address]#### VD25H, PTH3 ####[place] [address] [place] [address] Phosphate [Mass/Vol] 3.5 mg/dL Normal 2.5-4.5 [facility] Comment on above: Performed By: #### C RTUR, RENL3, HEMOG, TPUR ####[facility] [place] [address]#### VD25H, PTH3 ####[facility] [place] [address] Urea nitrogen [Mass/Vol] 29 mg/dL High 7-20 [facility] Comment on above: Performed By: #### C RTUR, RENL3, HEMOG, TPUR ####[facility] [place] [address]#### VD25H, PTH3 ####[facility] [place] [address] Albumin [Mass/Vol] 3.9 g/dL Normal 3.5-5.0 [facility] Comment on above: Performed By: #### C RTUR, RENL3, HEMOG, TPUR ####[facility] [place] [address]#### VD25H, PTH3 ####[facility] [place] [address] Chloride [Moles/Vol] 107 mmol/L Normal 98-107 [facility] Comment on above: Performed By: #### C RTUR, RENL3, HEMOG, TPUR ####[facility] [place] [address]#### VD25H, PTH3 ####[facility] [place] [address] Potassium [Moles/Vol] 3.6 mmol/L Normal 3.5-5.1 [facility] Comment on above: Performed By: #### C RTUR, RENL3, HEMOG, TPUR ####[facility] [place] [address]#### VD25H, PTH3 ####[facility] [place] [address] Sodium [Moles/Vol] 138 mmol/L Normal 135-145 [facility] Comment on above: Performed By: #### C RTUR, RENL3, HEMOG, TPUR ####[employer] [place] [address]#### VD25H, PTH3 ####[employer] [place] [address] Renal Function PanelOrdered By: Radha Torres on 05-25-2021 Albumin [Mass/Vol] 3.9 g/dL 3.5 - 5.0 g/dL [facility] Work Phone: Anion gap [Moles/Vol] 6 mmol/L 3 - 13 mmol/L [facility] Work Phone: Calcium [Mass/Vol] 9.2 mg/dL 8.4 - 10. 4 mg/dL [facility] Work Phone: Chloride [Moles/Vol] 107 mmol/L 98 - 10 7 mmol/L [facility] Work Phone: CO2 [Moles/Vol] 26 mmol/L 22 - 30 mmol/L [facility] Work Phone: Creatinine [Mass/Vol] 1.63 mg/dL High 0.52 - 1.25 mg/dL [facility] Work Phone: EGFR IF NonAfrican [place]ian 39.2 mL/min Abnormal >60 [facility] Work Phone: Comment on above: KDIGO guidelines pro vide the following GFR categories: Stage GFR(ml/min/1.73 m2) Terms G1 >=90 Normal or high G2 60-89 Mildly decreased* G3a 45-59 Mildly to moderately decreased G3b 30-44 Moderately to severely decreased G4 15-29 Severely decreased G5 <15 Kidney failure *Relative to young adult level. In the absence of evidence of kidney damage, neither GFR category G1 nor G2 fulfill the criteria for CKD. The CKD-EPI equation is validated in individuals 18 years of age and older. Currently the best equation for estimating glomerular filtration rate (GFR) from serum creatinine in children is the Bedside Carter equation. It is less accurate in patients with extremes of muscle mass, restriction of dietary protein, ingestion of creatine, extra-renal metabolism of creatinine, or treatment with medications that affect renal tubular creatinine secretion. GFR/1.73 sq M.predicted among blacks MDRD (S/P/Bld) [Vol rate/Area] 45.4 mL/min/{1.73_m2} Abnormal >60 [facility] Work Phone: [phone] Glucose [Mass/Vol] 87 mg/dL 70 - 100 mg/dL [facility] Work Phone: [phone] Interpretation and review of laboratory results Abnormal [facility] Work Phone: [phone] Phosphate [Mass/Vol] 3.5 mg/dL 2.5 - 4 .5 mg/dL [facility] Work Phone: [phone] Potassium [Moles/Vol] 3.6 mmol/L 3.5 - 5.1 mmol/L [facility] Work Phone: [phone] Sodium [Moles/Vol] 138 mmol/L 135 - 145 mmol/L [facility] Work Phone: [phone] Urea nitrogen (BldV) [Mass/Vol] 29 mg/dL High 7 - 20 mg/dL [facility] Work Phone: [phone] Test Performed by [facility], [address] [place], [place] [address] Work Phone: [phone] [facility] Work Phone: [phone] Vit D 25-OH, Totalon 021 Vit D 25-OH, Total 54 ng/mL Normal 30-100 [facility] Comment on above: Result Comment: Ther apy is based on measurement of Total 25- OHD with the following classification levels: Less than 20 ng/mL: Indicative of Vit D deficiency 20-30 ng/mL: Suggests Vit D insufficiency Optimal: Greater than or equal to 30 ng/mL Test performed by [employer], measuring Total Vitamin D, not individual fractions. Performed By: #### C RTUR, RENL3, HEMOG, TPUR ####[facility] [employer] [address] [place] [address]#### VD25H, PTH3 ####[facility] [place] [facility] [place] [address] Vitamin D 25 HydroxyOrdered By: Radha Torres on 05-25-2021 Vit D, 25-Hydroxy 54 ng/mL 30 - 100 ng/mL [facility] Work Phone: Comment on above: Therapy is based on measurement of Total 25-OHD with the following classification levels: Less than 20 ng/mL: Indicative of Vit D deficiency 20-30 ng/mL: Suggests Vit D insufficiency Optimal: Greater than or equal to 30 ng/mL Test performed by [employer], measuring Total Vitamin D, not individual fractions. Test Performed by [facility] [employer] [facility], [address], [place], [place] [id number] [place] [address] Work Phone: [facility] Work Phone: CULTURE BLOODon 04-29-2021 Microscopic examination of blood, culture CULTURE BLOOD --> Status: F No growth at 5 days. Normal [facility] [employer] [facility] Comment on above: Performed By: #### C /BLD ####[facility] [employer] [place] [address] CULTURE BLOOD (Two)on 2020 Microscopic examination of blood, culture CULTURE BLOOD (Two) --> Status: F No growth at 5 days. Normal [facility] [employer] Comment on above: Performed By: #### C /BLT #### [facility] [address] [place] [address] COVID-19, RapidOrdered By: Jose Alejandro Garcia on 04-23-2021 SARS-CoV-2 (COVID-19) RNA MIMI+probe Ql (Unsp spec) see below [facility] Work Phone: Comment on above: Not Detected Expected Result: Not Detected _ Isothermal nucleic acid amplification performed on the [employer] System by the [facility] Laboratory Negative results do not preclude SARS-CoV-2 infection and should not be used as the sole basis for treatment or other patient management decisions. This assay was developed by [employer] and distributed under an Emergency Use Authorization (EUA) granted by the FDA for the qualitative detection of SARS-CoV-2 nucleic acid. Provider and patient fact sheets can be found at https://www.fda.gov/media/349722/download and https://www.fda.gov/media/448906/download. Test Performed by [facility], [address] [place], [place] [address] [facility] Work Phone: [facility] Work Phone: CR Chest PA/LATon 04-23-2021 CR Chest PA/LAT Patient Name: BRIAN BRADLEY Diagnostic Radiology ACCESSION EXAM DATE/TIME PROCEDURE ORDERING PROVIDER [id number] 04/23/2021 10:31 EDT CR Chest PA and LAT BUCKY GARCIA CPT code 42578 Reason For Exam (CR Chest PA and LAT) fever cough Addendum Addendum: This examination was reviewed in conjunction with a subsequent CT of the abdomen and pelvis. On the lateral view of the chest there is a posterior basal infiltrate which corresponds with the right lower lobe infiltrate seen on the subsequent CT. Report Dictated on Final Addendum Addendum Dictating Physician: DO NAGY ALFRED Signed Date and Time: 04/23/2021 12:52 pm Signed by: DO NAGY ALFRED Transcribed Date and Time: 04/23/2021 12:53 Report CHEST, PA and LATERAL: INDICATION: Fever, cough COMPARISON: 12/24/2017 PA and lateral views of the chest were obtained. The heart is normal in size. The mediastinal silhouette is normal. The lungs are clear. There are no effusions or infiltrates. There is biapical pleural thickening. Arthritic changes of the spine and shoulders are present. A left-sided pacer is present. The leads are satisfactory in position. IMPRESSION: Negative chest. Report Dictated on Final Dictating Physician: DO NAGY ALFRED Signed Date and Time: 04/23/2021 10:37 am Signed by: DO NAGY ALFRED Transcribed Date and Time: 04/23/2021 10:38 Report last revised on 04/23/2021 12:52 EDT by DO NAGY ALFRED Normal [facility] CT Abdomen Pelvis Wo Contras tOrdered By: Bucky Garcia on 04-23-2021 Patient Name: BRIAN BRADLEY Computed Tomography ACCESSION EXAM DATE/TIME PROCEDURE ORDERING PROVIDER [id number] 04/23/2021 11:[address] Abdomen/Pelvis (No RADHA, BUCKY PO, No IV) CPT code 79249 Reason For Exam (CT Abdomen/Pelvis (No PO, No IV)) abd Report CLINICAL INFORMATION: Abdominal and pelvic pain. Fever. History of renal failure. CT abdomen and pelvis without intravenous contrast: CT abdomen: Volume acquisition CT images are obtained the diaphragm to the iliac crests without oral or intravenous contrast administration with axial, coronal and sagittal 2-D reconstructions. Images through the upper abdomen which included the lower chest demonstrate a patchy consolidation in the right lower lobe in the posterior costophrenic sulcus consistent with a pneumonia. There is no pleural effusion. No calcified renal or proximal ureteral calculi are identified on either side. There is no hydronephrosis or proximal ureteral dilatation on either side. There is a 4.5 cm posterior right lower pole pedunculated exophytic cyst. There is a round well-defined uniformly hyperdense posterior left mid renal cortical lesion most likely a cyst containing products of hemorrhage. The unenhanced kidneys are otherwise unremarkable in size, configuration and density. No inflammatory changes are seen in the perinephric fat. The unenhanced liver, spleen and pancreas are grossly unremarkable in size, configuration and density except for a subcentimeter round well-defined hypodensity in the lateral segment of the left lobe the liver superiorly which is too small to characterize but is most likely a small cyst or hemangioma. There is no abnormality of the gallbladder. There is no adrenal gland mass or enlargement. There is no ascites or retroperitoneal lymphadenopathy. No other focal mass, fluid collection or inflammatory process is seen. There is atherosclerotic calcification throughout a normal caliber abdominal aorta, greatest distally, extending into the common iliac arteries. CT pelvis: Volume acquisition CT images were obtained from the iliac crests to the symphysis pubis without oral or intravenous contrast administration with axial, coronal and sagittal 2-D reconstructions. Computed Tomography Report No calcified calculi or dilatation is seen of either distal ureter. There is an incompletely distended unopacified urinary bladder without calcified calculus or other visible abnormality. The prostate is enlarged and indents the posterior aspect of the floor the urinary bladder. No focal mass or fluid collection is seen. There is no iliac or inguinal lymphadenopathy. No ascites or inflammatory changes are identified. IMPRESSION: 1. Right lower lobe pneumonia. 2. Round well-defined hyperdense subcentimeter posterior left renal cortical lesion most likely a cyst containing products of hemorrhage. 3. No evidence for calcified collecting system calculi or obstruction. 4. No evidence of mass, lymphadenopathy or inflammatory process. Report Dictated on --- Final --- Dictating Physician: MD MICHELLE HARLAN Signed Date and Time: 04/23/2021 12:01 pm Signed by: MD MICHELLE HARLAN Transcribed Date and Time: 04/23/2021 12:02 [facility] Work Phone: [place], [facility] 12:02 PM EDT Patient Name: BRIAN JOSHI Computed Tomography ACCESSION EXAM DATE/TIME PROCEDURE ORDERING PROVIDER [id number] 04/23/2021 11:[address] Abdomen/Pelvis (No RADHA, BUCKY PO, No IV) CPT code 22421 Reason For Exam (CT Abdomen/Pelvis (No PO, No IV)) abd Report CLINICAL INFORMATION: Abdominal and pelvic pain. Fever. History of renal failure. CT abdomen and pelvis without intravenous contrast: CT abdomen: Volume acquisition CT images are obtained the diaphragm to the iliac crests without oral or intravenous contrast administration with axial, coronal and sagittal 2-D reconstructions. Images through the upper abdomen which included the lower chest demonstrate a patchy consolidation in the right lower lobe in the posterior costophrenic sulcus consistent with a pneumonia. There is no pleural effusion. No calcified renal or proximal ureteral calculi are identified on either side. There is no hydronephrosis or proximal ureteral dilatation on either side. There is a 4.5 cm posterior right lower pole pedunculated exophytic cyst. There is a round well-defined uniformly hyperdense posterior left mid renal cortical lesion most likely a cyst containing products of hemorrhage. The unenhanced kidneys are otherwise unremarkable in size, configuration and density. No inflammatory changes are seen in the perinephric fat. The unenhanced liver, spleen and pancreas are grossly unremarkable in size, configuration and density except for a subcentimeter round well-defined hypodensity in the lateral segment of the left lobe the liver superiorly which is too small to characterize but is most likely a small cyst or hemangioma. There is no abnormality of the gallbladder. There is no adrenal gland mass or enlargement. There is no ascites or retroperitoneal lymphadenopathy. No other focal mass, fluid collection or inflammatory process is seen. There is atherosclerotic calcification throughout a normal caliber abdominal aorta, greatest distally, extending into the common iliac arteries. CT pelvis: Volume acquisition CT images were obtained from the iliac crests to the symphysis pubis without oral or intravenous contrast administration with axial, coronal and sagittal 2-D reconstructions. Computed Tomography Report No calcified calculi or dilatation is seen of either distal ureter. There is an incompletely distended unopacified urinary bladder without calcified calculus or other visible abnormality. The prostate is enlarged and indents the posterior aspect of the floor the urinary bladder. No focal mass or fluid collection is seen. There is no iliac or inguinal lymphadenopathy. No ascites or inflammatory changes are identified. IMPRESSION: 1. Right lower lobe pneumonia. 2. Round well-defined hyperdense subcentimeter posterior left renal cortical lesion most likely a cyst containing products of hemorrhage. 3. No evidence for calcified collecting system calculi or obstruction. 4. No evidence of mass, lymphadenopathy or inflammatory process. Report Dictated on --- Final --- Dictating Physician: MD MICHELLE HARLAN Signed Date and Time: 04/23/2021 12:01 pm Signed by: MD MICHELLE HARLAN Transcribed Date and Time: 04/23/2021 12:02 [facility] Work Phone: [facility] Work Phone: CT Abdomen/Pelvis w/o Contra ston 04-23-2021 CT Abdomen/Pelvis w/o Contrast Patient Name: BRIAN JOSHI Computed Tomography ACCESSION EXAM DATE/TIME PROCEDURE ORDERING PROVIDER [id number] 04/23/2021 11:[address] Abdomen/Pelvis (No RADHABUCKY PO, No IV) CPT code 59960 Reason For Exam (CT Abdomen/Pelvis (No PO, No IV)) abd Report CLINICAL INFORMATION: Abdominal and pelvic pain. Fever. History of renal failure. CT abdomen and pelvis without intravenous contrast: CT abdomen: Volume acquisition CT images are obtained the diaphragm to the iliac crests without oral or intravenous contrast administration with axial, coronal and sagittal 2-D reconstructions. Images through the upper abdomen which included the lower chest demonstrate a patchy consolidation in the right lower lobe in the posterior costophrenic sulcus consistent with a pneumonia. There is no pleural effusion. No calcified renal or proximal ureteral calculi are identified on either side. There is no hydronephrosis or proximal ureteral dilatation on either side. There is a 4.5 cm posterior right lower pole pedunculated exophytic cyst. There is a round well-defined uniformly hyperdense posterior left mid renal cortical lesion most likely a cyst containing products of hemorrhage. The unenhanced kidneys are otherwise unremarkable in size, configuration and density. No inflammatory changes are seen in the perinephric fat. The unenhanced liver, spleen and pancreas are grossly unremarkable in size, configuration and density except for a subcentimeter round well-defined hypodensity in the lateral segment of the left lobe the liver superiorly which is too small to characterize but is most likely a small cyst or hemangioma. There is no abnormality of the gallbladder. There is no adrenal gland mass or enlargement. There is no ascites or retroperitoneal lymphadenopathy. No other focal mass, fluid collection or inflammatory process is seen. There is atherosclerotic calcification throughout a normal caliber abdominal aorta, greatest distally, extending into the common iliac arteries. CT pelvis: Volume acquisition CT images were obtained from the iliac crests to the symphysis pubis without oral or intravenous contrast administration with axial, coronal and sagittal 2-D reconstructions. Computed Tomography Report No calcified calculi or dilatation is seen of either distal ureter. There is an incompletely distended unopacified urinary bladder without calcified calculus or other visible abnormality. The prostate is enlarged and indents the posterior aspect of the floor the urinary bladder. No focal mass or fluid collection is seen. There is no iliac or inguinal lymphadenopathy. No ascites or inflammatory changes are identified. IMPRESSION: 1. Right lower lobe pneumonia. 2. Round well-defined hyperdense subcentimeter posterior left renal cortical lesion most likely a cyst containing products of hemorrhage. 3. No evidence for calcified collecting system calculi or obstruction. 4. No evidence of mass, lymphadenopathy or inflammatory process. Report Dictated on Final Dictating Physician: MD MICHELLE HARLAN Signed Date and Time: 04/23/2021 12:01 pm Signed by: MD MICHELLE HARLAN Transcribed Date and Time: 04/23/2021 12:02 Normal [facility] Comp Metabolic Panelon 04-23 ALP [Catalytic activity/Vol] 88 U/L Normal 38-126 [facility] Comment on above: Performed By: #### L ACT3, HEMDF, CMP3, LIPA4 #### [facility] [address] [place] [address] ALT [Catalytic activity/Vol] 16 U/L Normal 0-49 [facility] Comment on above: Result Comment: The ALT test is performed by an updated assay method. Please note that the reference intervals have been changed and are now sex specific. Performed By: #### L ACT3, HEMDF, CMP3, LIPA4 #### [facility] [address] [place] [address] Anion gap [Moles/Vol] 10 mmol/L Normal 3-13 [facility] Comment on above: Performed By: #### L ACT3, HEMDF, CMP3, LIPA4 #### [facility] [address] [place] [address] AST [Catalytic activity/Vol] 21 U/L Normal 15-46 [facility] Comment on above: Performed By: #### L ACT3, HEMDF, CMP3, LIPA4 #### [facility] [address] [place] [address] Bilirubin [Mass/Vol] 0.9 mg/dL Normal 0.2-1.3 [facility] Comment on above: Performed By: #### L ACT3, HEMDF, CMP3, LIPA4 #### [facility] [address] [place] [address] Calcium [Mass/Vol] 8.6 mg/dL Normal 8.4-10.4 [facility] Comment on above: Performed By: #### L ACT3, HEMDF, CMP3, LIPA4 #### [facility] [address] [place] [address] CO2 [Moles/Vol] 22 mmol/L Normal 22-30 [facility] Comment on above: Performed By: #### L ACT3, HEMDF, CMP3, LIPA4 #### [facility] [address] [place] [address] Glucose [Mass/Vol] 134 mg/dL High 70-100 [facility] Comment on above: Performed By: #### L ACT3, HEMDF, CMP3, LIPA4 #### [facility] [address] [place] [address] Protein [Mass/Vol] 6.7 g/dL Normal 6.3-8.2 [facility] Comment on above: Performed By: #### L ACT3, HEMDF, CMP3, LIPA4 #### [facility] [address] [place] [address] Urea nitrogen [Mass/Vol] 34 mg/dL High 7-20 [facility] Comment on above: Performed By: #### L ACT3, HEMDF, CMP3, LIPA4 #### [facility] [address] [place] [address] Creatinine [Mass/Vol] 2.24 mg/dL High 0.52-1.25 [facility] Comment on above: Performed By: #### L ACT3, HEMDF, CMP3, LIPA4 #### [facility] [address] [place] [address] GFR/1.73 sq M.predicted among blacks MDRD (S/P/Bld) [Vol rate/Area] 30.9 mL/min/{1.73_m2} Abnormal >60 [facility] Comment on above: Performed By: #### L ACT3, HEMDF, CMP3, LIPA4 #### [facility] [address] [place] [address] GFR/1.73 sq M.predicted among non-blacks MDRD (S/P/Bld) [Vol rate/Area] 26.7 mL/min/{1.73_m2} Abnormal >60 [facility] Comment on above: Result Comment: KDIG O guidelines provide the following GFR categories: Stage GFR(ml/min/1.73 m2) Terms G1 >=90 Normal or high G2 60-89 Mildly decreased* G3a 45-59 Mildly to moderately decreased G3b 30-44 Moderately to severely decreased G4 15-29 Severely decreased G5 <15 Kidney failure *Relative to young adult level. In the absence of evidence of kidney damage, neither GFR category G1 nor G2 fulfill the criteria for CKD. The CKD-EPI equation is validated in individuals 18 years of age and older. Currently the best equation for estimating glomerular filtration rate (GFR) from serum creatinine in children is the Bedside Carter equation. It is less accurate in patients with extremes of muscle mass, restriction of dietary protein, ingestion of creatine, extra-renal metabolism of creatinine, or treatment with medications that affect renal tubular creatinine secretion. Performed By: #### L ACT3, HEMDF, CMP3, LIPA4 #### [facility] [address] [place] [address] Albumin [Mass/Vol] 3.7 g/dL Normal 3.5-5.0 [facility] Comment on above: Performed By: #### L ACT3, HEMDF, CMP3, LIPA4 #### [facility] [address] [place] [address] Chloride [Moles/Vol] 106 mmol/L Normal 98-107 [facility] Comment on above: Performed By: #### L ACT3, HEMDF, CMP3, LIPA4 #### [facility] [address] [place] [address] Potassium [Moles/Vol] 3.1 mmol/L Low 3.5-5.1 [facility] Comment on above: Performed By: #### L ACT3, HEMDF, CMP3, LIPA4 #### [facility] [address] [place] [address] Sodium [Moles/Vol] 138 mmol/L Normal 135-145 [facility] Comment on above: Performed By: #### L ACT3, HEMDF, CMP3, LIPA4 #### [facility] [address] [place] [address] Complete Urinalysison 2020 Bacteria Moderate (6-50) Abnormal Negative [facility] Comment on above: Result Comment: . Performed By: #### C UA2 ####[facility] [place] [address] RBC, Urine 0 - 2 Normal 0-2 [facility] Comment on above: Result Comment: . Performed By: #### C UA2 ####[facility] [place] [address] Squamous Epithelial 0 - 2 Normal 3-5 [facility] Comment on above: Result Comment: . Performed By: #### C UA2 ####[facility] [place] [address] VOLUME, URINE 8-12 ml Normal [facility] Comment on above: Result Comment: . Performed By: #### C UA2 ####[place] [address] [place] [address] WBC, Urine 3 - 5 Normal 0-5 [facility] Comment on above: Result Comment: . Performed By: #### C UA2 ####[place] [address] [place] [address] Bilirubin,Urine Negative Normal Negative [facility] Comment on above: Result Comment: . Performed By: #### C UA2 ####[place] [address] [place] [address] Glucose Ql (U) Normal Normal Normal (<70) [facility] Comment on above: Result Comment: . Performed By: #### C UA2 ####[place] [address] [place] [address] Ketone,Urine Negative Normal Negative [facility] Comment on above: Result Comment: . Performed By: #### C UA2 ####[place] [address] [place] [address] Leukocytes,Urine 25 Panda/uL Abnormal Negative [facility] [place] [facility] Comment on above: Result Comment: . Performed By: #### C UA2 ####[place] [address] [place] [address] Nitrites,Urine Negative Normal Negative [facility] Comment on above: Result Comment: . Performed By: #### C UA2 ####[place] [address] [place] [address] pH,Urine 6.0 Normal 5.0-8.0 [facility] Comment on above: Result Comment: . Performed By: #### C UA2 ####[place] [address] [place] [address] Specific [place],Urine 1.021 Normal 1.005 - 1.030 [facility] Comment on above: Result Comment: . Performed By: #### C UA2 ####[place] [address] [place] [address] Complete UrinalysisOrdered B y: Bucky Garcia on 04-23-2021 Appearance (U) Clear Normal Clear [facility] Work Phone: Comment on above: . Result Comment: . Performed By: #### C UA2 ####[place] [address] [place] [address] Color (U) LIGHT YELLOW Normal Lt. Yellow [facility] Work Phone: Comment on above: . Result Comment: . Performed By: #### C UA2 ####[place] [address] [place] [address] Occult Blood,Urine Negative Normal Negative [facility] Work Phone: Comment on above: . Result Comment: . Performed By: #### C UA2 ####[place] [address] [place] [address] Protein (U) [Mass/Vol] 50 mg/dL Abnormal Negative [facility] Work Phone: Comment on above: . Result Comment: . Performed By: #### C UA2 ####[place] [address] [place] [address] Urobilinogen, Urine Normal Normal Normal (0-1) [facility] Work Phone: Comment on above: . Result Comment: . Performed By: #### C UA2 ####[place] [address] [place] [address] Comprehensive Metabolic Pane lOrdered By: Bucky Garcia on 04-23-2021 Albumin [Mass/Vol] 3.7 g/dL 3.5 - 5.0 g/dL [facility] Work Phone: [phone] ALP (Bld) [Catalytic activity/Vol] 88 U/L 38 - 126 U/L [facility] Work Phone: [phone] ALT [Catalytic activity/Vol] 16 U/L 0 - 49 U/L [facility] Work Phone: [phone] Comment on above: The ALT test is perf ormed by an updated assay method. Please note that the reference intervals have been changed and are now sex specific. Anion gap [Moles/Vol] 10 mmol/L 3 - 13 mmol/L [facility] Work Phone: [phone] AST [Catalytic activity/Vol] 21 U/L 15 - 46 U/L [facility] Work Phone: [phone] Bilirubin [Mass/Vol] 0.9 mg/dL 0.2 - 1 .3 mg/dL [facility] Work Phone: [phone] Calcium [Mass/Vol] 8.6 mg/dL 8.4 - 10. 4 mg/dL [facility] Work Phone: [phone] Chloride [Moles/Vol] 106 mmol/L 98 - 10 7 mmol/L [facility] Work Phone: CO2 [Moles/Vol] 22 mmol/L 22 - 30 mmol/L [facility] Work Phone: [phone] Creatinine [Mass/Vol] 2.24 mg/dL High 0.52 - 1.25 mg/dL [facility] Work Phone: [phone] EGFR IF NonAfrican [place] 26.7 mL/min Abnormal >60 [facility] Work Phone: Comment on above: KDIGO guidelines pro vide the following GFR categories: Stage GFR(ml/min/1.73 m2) Terms G1 >=90 Normal or high G2 60-89 Mildly decreased* G3a 45-59 Mildly to moderately decreased G3b 30-44 Moderately to severely decreased G4 15-29 Severely decreased G5 <15 Kidney failure *Relative to young adult level. In the absence of evidence of kidney damage, neither GFR category G1 nor G2 fulfill the criteria for CKD. The CKD-EPI equation is validated in individuals 18 years of age and older. Currently the best equation for estimating glomerular filtration rate (GFR) from serum creatinine in children is the Bedside Carter equation. It is less accurate in patients with extremes of muscle mass, restriction of dietary protein, ingestion of creatine, extra-renal metabolism of creatinine, or treatment with medications that affect renal tubular creatinine secretion. Free PSA/Total PSA [Mass fraction] 6.7 g/dL 6.3 - 8.2 g/dL [facility] Work Phone: 22 GFR/1.73 sq M.predicted among blacks MDRD (S/P/Bld) [Vol rate/Area] 30.9 mL/min/{1.73_m2} Abnormal >60 [facility] Work Phone: Glucose [Mass/Vol] 134 mg/dL High 70 - 100 mg/dL [facility] Work Phone: Interpretation and review of laboratory results Abnormal [facility] Work Phone: Potassium [Moles/Vol] 3.1 mmol/L Low 3.5 - 5.1 mmol/L [facility] Work Phone: Sodium [Moles/Vol] 138 mmol/L 135 - 145 mmol/L [facility] Work Phone: Urea nitrogen (BldV) [Mass/Vol] 34 mg/dL High 7 - 20 mg/dL [facility] Work Phone: [phone] Hemogram (CBC) w/Auto DiffOr dered By: Bucky Garcia on 04-23-2021 Absolute Baso # 0.0 10*3/uL 0.0 - 0.2 10*3/uL [facility] Work Phone: Absolute Neut # 14.0 10*3/uL High 1.8 - 7.0 10*3/uL [facility] Work Phone: [phone] Basophils/100 WBC (Bld) 0.3 % 0.0 - 2.0 % [facility] Work Phone: Eosinophils (Bld) [#/Vol] 0.0 10*3/uL 0.0 - 0.5 10*3/uL [facility] Work Phone: [phone] Eosinophils/100 WBC (Bld) 0.0 % Low 1.0 - 6.0 % [facility] Work Phone: [phone] Granulocytes/100 WBC (Bld) 84.8 % High 40.0 - 80.0 % [facility] Work Phone: 1 Hematocrit (Bld) [Volume fraction] 38.9 % Low 40.0 - 52.0 % [employer] Work Phone: Hemoglobin.gastroint estinal spec 1 Ql (Stl) 13.0 g/dL 13.0 - 18.0 g/dL [employer] Work Phone: [phone] Interpretation and review of laboratory results Abnormal [employer] Work Phone: Lymphocytes (Bld) [#/Vol] 1.1 10*3/uL 1.0 - 4.3 10*3/uL [employer] Work Phone: 1 Lymphocytes/100 WBC (Bld) 6.6 % Low 20.0 - 40.0 % [facility] Phone: 1 MCH (RBC) [Entitic mass] 30.7 pg 26.0 - 34.0 pg [employer] Work Phone: MCHC (RBC) [Mass/Vol] 33.5 % 32.0 - 36.0 % [employer] Work Phone: MCV (RBC) [Entitic vol] 91.4 fL 80.0 - 98.0 fL [employer] Work Phone: Monocytes (Bld) [#/Vol] 1.4 10*3/uL High 0.0 - 0.8 10*3/uL [employer] Work Phone: Monocytes/100 WBC (Bld) 8.3 % 2.0 - 10.0 % [employer] Work Phone: Platelet distribution width (Bld) [Ratio] 13.3 % 11.5 - 14.5 % [facility] Phone: Platelet mean volume (Bld) [Entitic vol] 8.4 fL 7.4 - 10.4 fL [employer] Work Phone: Platelets (Bld) [#/Vol] 339 10*3/uL 140 - 440 10*3/uL [facility] Work Phone: RBC (Bld) [#/Vol] 4.25 10*6/uL Low 4.40 - 5.9 0 10*6/uL [facility] Work Phone: WBC (Bld) [#/Vol] 16.5 10*3/uL High 3.6 - 10.7 10*3/uL [facility] Work Phone: [phone] Test Performed by [facility], [address] , [place], [place] [address] Work Phone: [phone] [facility] Work Phone: [phone] Hemogram w/ Autodiffon 04-23 Abs Baso Cnt 0.0 10*3/uL Normal 0.0-0.2 [facility] Comment on above: Performed By: #### L ACT3, HEMDF, CMP3, LIPA4 #### [facility] [address] [place] [address] Abs Neutrophile Cnt 14.0 10*3/uL High 1.8-7.0 [facility] Comment on above: Performed By: #### L ACT3, HEMDF, CMP3, LIPA4 #### [facility] [address] [place] [address] Basophils/100 WBC (Bld) 0.3 % Normal 0.0-2.0 [facility] Comment on above: Performed By: #### L ACT3, HEMDF, CMP3, LIPA4 #### [facility] [address] [place] [address] Eosinophils (Bld) [#/Vol] 0.0 10*3/uL Normal 0.0-0.5 [facility] Comment on above: Performed By: #### L ACT3, HEMDF, CMP3, LIPA4 #### [facility] [address] [place] [address] Eosinophils/100 WBC (Bld) 0.0 % Low 1.0-6.0 [facility] Comment on above: Performed By: #### L ACT3, HEMDF, CMP3, LIPA4 #### [facility] [address] [place] [address] Erythrocyte distribution width (RBC) [Ratio] 13.3 % Normal 11.5-14.5 [facility] Comment on above: Performed By: #### L ACT3, HEMDF, CMP3, LIPA4 #### [facility] [address] [place] [address] Granulocytes/100 WBC (Bld) 84.8 % High 40.0-80.0 [facility] Comment on above: Performed By: #### L ACT3, HEMDF, CMP3, LIPA4 #### [facility] [address] [place] [address] Hematocrit (Bld) [Volume fraction] 38.9 % Low 40.0-52.0 [facility] Comment on above: Performed By: #### L ACT3, HEMDF, CMP3, LIPA4 #### [facility] [address] [place] [address] Hemoglobin (Bld) [Mass/Vol] 13.0 g/dL Normal 13.0-18.0 [facility] Comment on above: Performed By: #### L ACT3, HEMDF, CMP3, LIPA4 #### [facility] [address] [place] [address] Lymphocytes (Bld) [#/Vol] 1.1 10*3/uL Normal 1.0-4.3 [facility] Comment on above: Performed By: #### L ACT3, HEMDF, CMP3, LIPA4 #### [facility] [address] [place] [address] Lymphocytes/100 WBC (Bld) 6.6 % Low 20.0-40.0 [facility] Comment on above: Performed By: #### L ACT3, HEMDF, CMP3, LIPA4 #### [facility] [address] [place] [address] MCH (RBC) [Entitic mass] 30.7 pg Normal 26.0-34.0 [facility] Comment on above: Performed By: #### L ACT3, HEMDF, CMP3, LIPA4 #### [facility] [address] [place] [address] MCHC 33.5 % Normal 32.0-36.0 [facility] Comment on above: Performed By: #### L ACT3, HEMDF, CMP3, LIPA4 #### [facility] [address] [place] [address] MCV (RBC) [Entitic vol] 91.4 fL Normal 80.0-98.0 [facility] Comment on above: Performed By: #### L ACT3, HEMDF, CMP3, LIPA4 #### [facility] [address] [place] [address] Monocytes (Bld) [#/Vol] 1.4 10*3/uL High 0.0-0.8 [facility] Comment on above: Performed By: #### L ACT3, HEMDF, CMP3, LIPA4 #### [facility] [address] [place] [address] Monocytes/100 WBC (Bld) 8.3 % Normal 2.0-10.0 [facility] Comment on above: Performed By: #### L ACT3, HEMDF, CMP3, LIPA4 #### [facility] [address] [place] [address] Platelet mean volume (Bld) [Entitic vol] 8.4 fL Normal 7.4-10.4 [facility] Comment on above: Performed By: #### L ACT3, HEMDF, CMP3, LIPA4 #### [facility] [address] [place] [address] Platelets (Bld) [#/Vol] 339 10*3/uL Normal 140-440 [facility] Comment on above: Performed By: #### L ACT3, HEMDF, CMP3, LIPA4 #### [facility] [address] [place] [address] RBC (Bld) [#/Vol] 4.25 10*6/uL Low 4.40-5.90 [facility] Comment on above: Performed By: #### L ACT3, HEMDF, CMP3, LIPA4 #### [facility] [address] [place] [address] WBC (Bld) [#/Vol] 16.5 10*3/uL High 3.6-10.7 [facility] Comment on above: Performed By: #### L ACT3, HEMDF, CMP3, LIPA4 #### [facility] [address] [address] Lactic Acidon 04-23-2021 Lactate [Moles/Vol] 1.4 mmol/L Normal 0.7-2.0 [facility] Comment on above: Performed By: #### L ACT3, HEMDF, CMP3, LIPA4 #### [facility] [address] [address] Lactic Acid, PlasmaOrdered B y: Bucky Garcia on 04-23-2021 Lactate [Moles/Vol] 1.4 mmol/L 0.7 - 2. 0 mmol/L [facility] Work Phone: [phone] Test Performed by [facility], [facility] [address] , [address] Work Phone: [phone] [facility] Work Phone: [phone] Lipaseon 04-23-2021 Lipase [Catalytic activity/Vol] 161 U/L Normal 23-300 [facility] Comment on above: Performed By: #### L ACT3, HEMDF, CMP3, LIPA4 #### [facility] [address] [place] [address] LipaseOrdered By: Bucky mercedes on 04-23-2021 Lipase [Catalytic activity/Vol] 161 U/L 23 - 300 U/L [facility] [facility] Work Phone: No Panel InformationOrdered By: Bucky Garcia on 04-23-2021 Test Performed by [facility], [address] , [address] Work Phone: [phone] [facility] Work Phone: SARS-CoV-2 (LAB DEPT)on SARS-CoV-2 (COVID-19) RNA MIMI+probe Ql (Unsp spec) see below Normal [facility] Comment on above: Result Comment: Not Detected Expected Result: Not Detected _ Isothermal nucleic acid amplification performed on the Urb[employer] ID Now System by the [facility] Laboratory Negative results do not preclude SARS-CoV-2 infection and should not be used as the sole basis for treatment or other patient management decisions. This assay was developed by [employer] and distributed under an Emergency Use Authorization (EUA) granted by the FDA for the qualitative detection of SARS-CoV-2 nucleic acid. Provider and patient fact sheets can be found at https://www.fda.gov/media/474782/download and https://www.fda.gov/media/204393/download. Performed By: #### C VCCL #### [facility] [address] [place] [address] UrinalysisOrdered By: Charles Garcia on 04-23-2021 Bacteria, UA Moderate (6-50) Abnormal Negative /[HPF] [facility] Work Phone: 1 Comment on above: . Bilirubin Urine Negative Negative mg/dL [facility] Work Phone: 1 Comment on above: . Glucose, Ur Normal Normal (<70) mg/dL [facility] Work Phone: 1 Comment on above: . Interpretation and review of laboratory results Abnormal [facility] Work Phone: 1 Ketones Ql (U) Negative Negative mg/dL [facility] Work Phone: 1 Comment on above: . LEUKOCYTES, UA 25 Abnormal Negative Panda/uL [facility] Work Phone: 1 Comment on above: . Nitrite, Urine Negative Negative NA [facility] Work Phone: 1 Comment on above: . pH (U) 6.0 [pH] [employer] Work Phone: 1 Comment on above: . RBC, UA 0-2 0 - 2 /[HPF] [employer] Work Phone: 1 Comment on above: . Specific [place], Urine 1.021 [employer] Work Phone: 1 Comment on above: . Squam Epithel, UA 0-2 3 - 5 /[HPF] [employer] Work Phone: 1 Comment on above: . Volume 8-12 ml [employer] Work Phone: 1 Comment on above: . WBC, UA 3-5 0 - 5 /[HPF] [facility] Work Phone: Comment on above: . Test Performed by [facility], [address] , [place], [place] [address] [facility] Work Phone: [facility] Work Phone: XR CHEST (2 VW)Ordered By: Jose Alejandro Garcia on 04-23-2021 Patient Name: BRIAN BRADLEY Diagnostic Radiology ACCESSION EXAM DATE/TIME PROCEDURE ORDERING PROVIDER [id number] 04/23/2021 10:31 EDT CR Chest PA & LAT BUCKY GARCIA CPT code 55147 Reason For Exam (CR Chest PA & LAT) fever cough Addendum Addendum: This examination was reviewed in conjunction with a subsequent CT of the abdomen and pelvis. On the lateral view of the chest there is a posterior basal infiltrate which corresponds with the right lower lobe infiltrate seen on the subsequent CT. Report Dictated on ---Final Addendum--- Addendum Dictating Physician: DO NAGY ALFRED Signed Date and Time: 04/23/2021 12:52 pm Signed by: DO NAGY ALFRED Transcribed Date and Time: 04/23/2021 12:53 Report CHEST, PA & LATERAL: INDICATION: Fever, cough COMPARISON: 12/24/2017 PA and lateral views of the chest were obtained. The heart is normal in size. The mediastinal silhouette is normal. The lungs are clear. There are no effusions or infiltrates. There is biapical pleural thickening. Arthritic changes of the spine and shoulders are present. A left-sided pacer is present. The leads are satisfactory in position. IMPRESSION: Negative chest. Report Dictated on --- Final --- Dictating Physician: DO NAGY ALFRED Signed Date and Time: 04/23/2021 10:37 am Signed by: DO NAGY ALFRED Transcribed Date and Time: 04/23/2021 10:38 Report last revised on 04/23/2021 12:52 EDT by DO NAGY ALFRED [facility] Work Phone: [place], Enedeliaa Incoming Radiology Results From [facility] - 04/23/2021 12:53 PM EDT Patient [facility]: [id number] Radiology ACCESSION EXAM DATE/TIME PROCEDURE ORDERING PROVIDER [id number] 04/23/2021 10:31 EDT CR Chest PA & LAT UBCKY GARCIA CPT code 43393 Reason For Exam (CR Chest PA & LAT) fever cough Addendum Addendum: This examination was reviewed in conjunction with a subsequent CT of the abdomen and pelvis. On the lateral view of the chest there is a posterior basal infiltrate which corresponds with the right lower lobe infiltrate seen on the subsequent CT. Report Dictated on ---Final Addendum--- Addendum Dictating Physician: DO NAGY ALFRED Signed Date and Time: 04/23/2021 12:52 pm Signed by: DO NAGY ALFRED Transcribed Date and Time: 04/23/2021 12:53 Report CHEST, PA & LATERAL: INDICATION: Fever, cough COMPARISON: 12/24/2017 PA and lateral views of the chest were obtained. The heart is normal in size. The mediastinal silhouette is normal. The lungs are clear. There are no effusions or infiltrates. There is biapical pleural thickening. Arthritic changes of the spine and shoulders are present. A left-sided pacer is present. The leads are satisfactory in position. IMPRESSION: Negative chest. Report Dictated on --- Final --- Dictating Physician: DO NAGY ALFRED Signed Date and Time: 04/23/2021 10:37 am Signed by: DO NAGY ALFRED Transcribed Date and Time: 04/23/2021 10:38 Report last revised on 04/23/2021 12:52 EDT by DO NAGY ALFRED [facility] Work Phone: [facility] Work Phone: Basic Metabolic Panelon 02-0 Anion gap [Moles/Vol] 6 mmol/L [place] Calcium [Mass/Vol] 9.3 mg/dL 8.4 - 10. 4 mg/dL [place] Chloride [Moles/Vol] 107 mmol/L 98 - 10 7 mmol/L [place] CO2 [Moles/Vol] 29 mmol/L 22 - 30 mmol/L [place] Creatinine [Mass/Vol] 1.48 mg/dL High 0.52 - 1.25 mg/dL [place] EGFR IF NonAfrican [place]ian 44.2 mL/min Abnormal >60 [place] Comment on above: KDIGO guidelines pro vide the following GFR categories: Stage GFR(ml/min/1.73 m2) Terms G1 >=90 Normal or high G2 60-89 Mildly decreased* G3a 45-59 Mildly to moderately decreased G3b 30-44 Moderately to severely decreased G4 15-29 Severely decreased G5 <15 Kidney failure *Relative to young adult level. In the absence of evidence of kidney damage, neither GFR category G1 nor G2 fulfill the criteria for CKD. The CKD-EPI equation is validated in individuals 18 years of age and older. Currently the best equation for estimating glomerular filtration rate (GFR) from serum creatinine in children is the Bedside Carter equation. It is less accurate in patients with extremes of muscle mass, restriction of dietary protein, ingestion of creatine, extra-renal metabolism of creatinine, or treatment with medications that affect renal tubular creatinine secretion. GFR/1.73 sq M predicted among blacks MDRD (S/P/Bld) [Vol rate/Area] 51.2 mL/min/{1.73_m2} Abnormal >60 [place] Glucose [Mass/Vol] 118 mg/dL High 70 - 100 mg/dL [place] Interpretation and review of laboratory results Abnormal [place] Potassium [Moles/Vol] 4.1 mmol/L 3.5 - 5.1 mmol/L [place] Sodium [Moles/Vol] 141 mmol/L 135 - 145 mmol/L [place] Urea nitrogen [Mass/Vol] 27 mg/dL High 7 - 20 mg/dL [place] Test Performed by [facility], [facility] [address] , [place] Creatinine, Random Urineon 0 11-24-2020 Creatinine (U) [Mass/Vol] 126.7 mg/dL No Range [place] Otheron 11-24-2020 Test Performed by [facility], [address] , [address] Protein, urine, randomon Interpretation and review of laboratory results Abnormal [place] Protein (U) [Mass/Vol] 33 mg/dL High No Range [place] Troponinon 09-01-2020 Troponin I.cardiac [Mass/Vol] ng/mL 0 - 0.034 ng/mL [place] Comment on above: . Test Performed by [facility], [address] , [address] CBCon 05-20-2020 Erythrocyte distribution width (RBC) [Ratio] 13.6 % 11.5 - 14.5 % [place] Hematocrit (Bld) [Volume fraction] 37.8 % Low 40 - 52 % [place] Hemoglobin (Bld) [Mass/Vol] 12.7 g/dL Low 13 - 18 g/dL [place] Interpretation and review of laboratory results Abnormal [place] MCH (RBC) [Entitic mass] 31.6 pg 26 - 34 pg [place] MCHC (RBC) [Mass/Vol] 33.5 % 32 - 36 % [place] MCV (RBC) [Entitic vol] 94.2 fL 80 - 98 fL [place] Platelet mean volume (Bld) [Entitic vol] 8.2 fL 7.4 - 10.4 fL [place] Platelets (Bld) [#/Vol] 321 10*3/uL 140 - 440 10*3/uL [place] RBC (Bld) [#/Vol] 4.02 10*6/uL Low 4.4 - 5.9 10*6/uL [place] WBC (Bld) [#/Vol] 7.3 10*3/uL 3.6 - 10.7 10*3/uL [facility] Test Performed by [facility], [address] , [place], [place] [id number] [place] [address] [place]- [place] Creatinine, Random Urineon 0 05-20-2020 Creatinine (U) [Mass/Vol] 230.1 mg/dL No Range [facility] Otheron 05-20-2020 Test Performed by [facility], [address] , [place], [place] [address] [facility] [place] PTH, Intacton 05-20-2020 Pth Intact 62 pg/mL 15 - 63 pg/mL [facility] Test Performed by [facility], [address], [place], [place] [address] [facility] [place] Protein, urine, randomon Protein (U) [Mass/Vol] 10 mg/dL No Range [facility] Renal Function Panelon 05-20 Albumin [Mass/Vol] 3.4 g/dL Low 3.5 - 5 g/dL [facility] [place] Anion gap [Moles/Vol] 7 mmol/L [facility] [place] Calcium [Mass/Vol] 9.0 mg/dL 8.4 - 10. 4 mg/dL [facility] Chloride [Moles/Vol] 107 mmol/L 98 - 10 7 mmol/L [facility] [place] CO2 [Moles/Vol] 25 mmol/L 22 - 30 mmol/L [facility] [place] Creatinine [Mass/Vol] 1.46 mg/dL High 0.52 - 1.25 mg/dL [facility] [place] EGFR IF NonAfrican [place] 45.0 mL/min Abnormal >60 [facility] Comment on above: KDIGO guidelines pro vide the following GFR categories: Stage GFR(ml/min/1.73 m2) Terms G1 >=90 Normal or high G2 60-89 Mildly decreased* G3a 45-59 Mildly to moderately decreased G3b 30-44 Moderately to severely decreased G4 15-29 Severely decreased G5 <15 Kidney failure *Relative to young adult level. In the absence of evidence of kidney damage, neither GFR category G1 nor G2 fulfill the criteria for CKD. The CKD-EPI equation is validated in individuals 18 years of age and older. Currently the best equation for estimating glomerular filtration rate (GFR) from serum creatinine in children is the Bedside Carter equation. It is less accurate in patients with extremes of muscle mass, restriction of dietary protein, ingestion of creatine, extra-renal metabolism of creatinine, or treatment with medications that affect renal tubular creatinine secretion. GFR/1.73 sq M predicted among blacks MDRD (S/P/Bld) [Vol rate/Area] 52.2 mL/min/{1.73_m2} Abnormal >60 [facility] Glucose [Mass/Vol] 204 mg/dL High 70 - 100 mg/dL [facility] [place], [place] Interpretation and review of laboratory results Abnormal [facility] Phosphate [Mass/Vol] 3.2 mg/dL 2.5 - 4 .5 mg/dL [facility] [place], [place] Potassium [Moles/Vol] 4.1 mmol/L 3.5 - 5.1 mmol/L [facility] [employer], [place] Sodium [Moles/Vol] 139 mmol/L 135 - 145 mmol/L [facility] [employer] Urea nitrogen [Mass/Vol] 32 mg/dL High 7 - 20 mg/dL [facility] [email or web address] [place] Test Performed by [employer] [facility], [address] , [place] [id number] [place], [place] [email or web address] [place] Vitamin D 25 Hydroxyon 05-20 Vit D, 25-Hydroxy 59 ng/mL 30 - 100 ng/mL [place] Comment on above: Therapy is based on measurement of Total 25-OHD with the following classification levels: Less than 20 ng/mL: Indicative of Vit D deficiency 20-30 ng/mL: Suggests Vit D insufficiency Optimal: Greater than or equal to 30 ng/mL Test performed by [employer], measuring Total Vitamin D, not individual fractions. Test Performed by [employer], [address], [place], [place] [id number] [place] [address] [facility] [place] Creatinine, Random UrineOrde red By: Radha Torres on 11-20-2019 Creatinine (U) [Mass/Vol] 259.5 mg/dL No Range [facility] Work Phone: No Panel InformationOrdered By: Radha Torres on 11-20-2019 Test Performed by [facility], [address], [place], [place] [address] [facility] Work Phone: Test Performed by [facility], [address] , [place], [place] [address] [facility] Work Phone: PTH, IntactOrdered By: Miles Torres on 11-20-2019 Pth Intact 56.9 pg/mL 15 - 63 pg/mL [facility] Work Phone: 1 Protein, urine, randomOrdere d By: Radha Torres on 11-20-2019 Protein (U) [Mass/Vol] 12 mg/dL No Range [facility] Work Phone: Renal Function PanelOrdered By: Radha Torres on 11-20-2019 Albumin [Mass/Vol] 4.2 g/dL 3.5 - 5 g/dL [facility] Work Phone: Anion gap [Moles/Vol] 9 mmol/L [facility] Work Phone: Calcium [Mass/Vol] 9.6 mg/dL 8.4 - 10. 4 mg/dL [facility] Work Phone: Chloride [Moles/Vol] 104 mmol/L 98 - 10 7 mmol/L [facility] Work Phone: CO2 [Moles/Vol] 30 mmol/L 22 - 30 mmol/L [facility] Work Phone: Creatinine [Mass/Vol] 1.61 mg/dL High 0.52 - 1.25 mg/dL [facility] Work Phone: EGFR IF NonAfrican Zambian 41.6 mL/min >60 [facility] Work Phone: Comment on above: Source- MDRD equatio n with creatinine calibration to IDMS(NKDEP) eGFR not recommended for drug dose adjustment GFR/1.73 sq M.predicted among blacks MDRD (S/P/Bld) [Vol rate/Area] 50.5 mL/min/{1.73_m2} >60 [facility] Work Phone: Glucose [Mass/Vol] 51 mg/dL Low 70 - 100 mg/dL [facility] Work Phone: [phone] Interpretation and review of laboratory results Abnormal [facility] Work Phone: [phone] Phosphate [Mass/Vol] 3.7 mg/dL 2.5 - 4 .5 mg/dL [facility] Work Phone: [phone] Potassium [Moles/Vol] 3.6 mmol/L 3.5 - 5.1 mmol/L [facility] Work Phone: [phone] Sodium [Moles/Vol] 142 mmol/L 135 - 145 mmol/L [facility] Work Phone: [phone] Urea nitrogen [Mass/Vol] 28 mg/dL High 7 - 20 mg/dL [facility] Work Phone: [phone] Test Performed by [facility], [address] [place] [address] [address] Work Phone: [phone] Vitamin D 25 HydroxyOrdered By: Radha Torres on 11-20-2019 Vit D, 25-Hydroxy 53 ng/mL 30 - 100 ng/mL [facility] Work Phone: Comment on above: Therapy is based on measurement of Total 25-OHD with the following classification levels: Less than 20 ng/mL: Indicative of Vit D deficiency 20-30 ng/mL: Suggests Vit D insufficiency Optimal: Greater than or equal to 30 ng/mL Test performed by [employer], measuring Total Vitamin D, not individual fractions. Clinical Summary: HMSPatient IDon 11-23-2018 SOP [facility] Work Phone: Clinical Summary: Scanned Hi story Summaryon 11-23-2018 brother(s) of patient alive or Unknown [facility] Work Phone: Cholesterol mass conc Kidney diseaseDiabetes - insulin dependentHigh blood pressurePacemakerHeart attackHigh cholesterol [facility] Work Phone: data entered by patient, alcohol (ethanol or ETOH) use No [facility] Work Phone: data entered by patient, drug (of abuse) use No [facility] Work Phone: data entered by patient, Employer Name Retired [facility] Work Phone: data entered by patient, exercise history No [facility] Work Phone: data entered by patient, father's medical history Heart disease [facility] Work Phone: Data entered by patient, history of past surgeries Pacemaker insertionHeart stent [facility] Work Phone: data entered by patient, mother's medical history Cancer [facility] Work Phone: data entered by patient, social history, marital status [facility] Work Phone: father of patient is alive or [facility] Work Phone: mother of patient is alive or [facility] Work Phone: sister of patient(s) alive or Unknown [facility] Work Phone: Clinical Summary: Rafa BLANDON S Summaryon 11-23-2018 endocrine ROS Complains [facility] Work Phone: endocrine system, review of, comments Diabetes [facility] Work Phone: genitourinary review of systems, E&M Denies [facility] Work Phone: Lymphocytes #/vol (Bld) Denies [facility] Work Phone: ROS cardiovascular E&M Denies [facility] Work Phone: ROS ENT comment Impaired Hearing Cry [facility] Work Phone: ROS ENT E&M Complains [facility] Work Phone: ROS gastrointestinal E&M Denies [facility] Work Phone: ROS general E&M Denies [facility] Work Phone: ROS musculoskeletal E&M Denies [facility] Work Phone: ROS neurological E&M Denies [facility] Work Phone: ROS psychiatric E&M Denies [facility] Work Phone: ROS Pulmonary comment Shortness Of Breath [facility] Work Phone: ROS pulmonary E&M Complains [facility] Work Phone: ROS skin E&M Denies [facility] Work Phone: Office Visit: New - 1st visi t with practice, Rm:on 11-23-2018 NEGATED: Highlighted rowProtein mass conc Done [facility] Work Phone: NEGATED: Highlighted rowTobacco smoking status NHIS Tobacco smoking status NHIS [facility] Work Phone: NEGATED: Highlighted rowxray history of the left thumb on 11/16/2018 at [facility] Work Phone: Basic Metabolic Panelon 10-25 Anion gap molar conc 9 Normal [facility] [employer] [facility] Comment on above: Performed By: #### H EMOG, PT, BMP3 #### [facility] [employer] [address] [place] [address] Calcium mass conc 9.1 mg/dL Normal 8.4-10.4 [facility] Comment on above: Performed By: #### H EMOG, PT, BMP3 #### [facility] [address] [place], [place] CO2 molar conc 27 mmol/L Normal 22-30 [facility] Comment on above: Performed By: #### H ELANA SINGLETON BMP3 #### [facility] [address] [place], [place] Glucose mass conc 90 mg/dL Normal 70-100 [facility] Comment on above: Performed By: #### H ELANA SINGLETON BMP3 #### [place] [address] [address] [place], [place] Urea nitrogen mass conc 35 mg/dL High 7-20 [facility] Comment on above: Performed By: #### H ELANA SINGLETON BMP3 #### [place] [address] [address] [place], [place] Creatinine mass conc 1.72 mg/dL High 0.52-1.25 [facility] Comment on above: Performed By: #### H ELANA SINGLETON BMP3 #### [place] [address] [address] [place], [place] GFR/1.73 sq M predicted among blacks MDRD vol rate/area (S/P/Bld) 46.9 mL/min/{1.73_m2} Normal >60 [facility] Comment on above: Performed By: #### H ELANA SINGLETON, BMP3 #### [place] [address] [address] [place], [place] GFR/1.73 sq M predicted among non-blacks MDRD vol rate/area (S/P/Bld) 38.7 mL/min/{1.73_m2} Normal >60 [facility] Comment on above: Result Comment: Sour ce- MDRD equation with creatinine calibration to IDMS(NKDEP) eGFR not recommended for drug dose adjustment Performed By: #### H ELANA SINGLETON, BMP3 #### [place] [address] [address] [place], [place] Chloride molar conc 107 mmol/L Normal 98-107 [facility] Comment on above: Performed By: #### H ELANA SINGLETON, BMP3 #### [place] [address] [address] [place], [place] Potassium molar conc 3.5 mmol/L Normal 3.5-5.1 [facility] Comment on above: Performed By: #### H ELANA SINGLETON, BMP3 #### [facility] [address] [place] [address] Sodium molar conc 143 mmol/L Normal 135-[address] [facility] Comment on above: Performed By: #### H ELANA SINGLETON, BMP3 #### [facility] [address] [place], [place] CR Hand Complete 3+ Views Le fton 11-16-2018 CR Hand Complete 3+ Views Left Patient Name: BRIAN JOSHI Diagnostic Radiology Exam Date/Time 11/16/2018 17:01:59 EST Exam CR Hand Complete 3+ Views Left Ordering Physician PITA HAMILTON, VIDHYA Michelle Accession Number [id number] CPT4 Codes 98588 () Reason For Exam amputation left thumb Report LEFT HAND THREE VIEWS CLINICAL INDICATION: amputation left thumb TECHNIQUE: Three views of the left hand. COMPARISON: None. FINDINGS: Partial amputation noted in the midportion of thumb distal phalanx, with soft tissue and osseous defect. Diffuse soft tissue edema and overlying bandaging artifact. No dislocation. Remainder of osseous and soft tissue structures grossly unremarkable. IMPRESSION: 1. Status post amputation left thumb distal phalanx. Report Dictated on Workstation: TRUMAN Final Dictated: 11/16/2018 5:18 pm Dictating Physician: MD HATFIELD WENDELL Signed Date and Time: 11/16/2018 5:20 pm Signed by: MD HATFIELD WENDELL Transcribed Date and Time: 11/16/2018 5:18 Normal [facility] ED Provider Noteon 9 Protein mass conc Emergency Department Encounter [facility] EMERGENCY DEPT Patient: Brian Joshi : 1940 Date of Evaluation: 11/16/2018 ED Supervising Physician: ARJUN CALLEJAS MD THIS WILL SERVE MY FREDDY SUPERVISORY NOTE: I independently examined and evaluated Brian Joshi. HISTORY: In brief, Brian Joshi is a 78 y.o. male that presents to the emergency department amputation of left thumb. It occurred on a table saw earlier today he went to [facility] they apparently spoke with hand and transferred him up here. He has an amputation through the IP joint the distal portion is on ice. Focused exam: MUSCLE skeletal: Amputation through the midportion of the thumb. No other injuries. Brief ED course/MDM: Orthopedic/hand surgery come and see the patient I saw the patient in conjunction with the FREDDY, we discussed the patient's condition, course of therapy, and diagnostics. Please see the FREDDY's complete history and physical exam and disposition for details. (Please note that portions of this note may have been completed with a voice recognition program. Efforts were made to edit the dictations but occasionally words are mis-transcribed.) ARJUN CALLEJAS MD [facility] Arjun Callejas MD 11/16/18 1628 [facility] Patient: Brian Joshi : 1940 Date of Evaluation: 11/16/2018 ED FREDDY Provider: Vidhya Hamilton PA-C EDcare was supervised by Dr. Callejas who independently examined and evaluated the patient. Please see their attestation note for further details. Chief Complaint Chief Complaint Patient presents with ? Other LAC LEFT THUMB;SENT FROM [facility] Brian Joshi is a 78 y.o. male whopresents to the emergency department For evaluation of a LEFT thumb amputation after initially being evaluated in sent from [facility]. He was using a table saw approximately noon today, when his LEFT hand slipped beneath the blade. He believes that he cut it off at the interphalangeal joint. He was told to come directly to [facility] emergency department. Review of paperwork and blue slip with patient indicates that he was treated with Ancef 1 g, morphine, Zofran. Patient is unaware when his last tetanus vaccine was, and did not receive one in the emergency department at [place]. Arrives with partially amputated thumb, on ice in a bag. Son at bedside. Duration of symptoms 4 hours. Location of symptoms of thumb. Describes as pounding, with currently 2 out of 10, previously 10 out of 10 in severity. No specific aggravating factors, pain was significantly improved with morphine administered at [facility]. ROS: Review of Systems Constitutional: Negative for chills, diaphoresis and unexpected weight change. HENT: Negative for ear pain, sinus pressure and sore throat. Eyes: Negative for pain and visual disturbance. Respiratory: Negative for cough, shortness of breath and wheezing. Cardiovascular: Negative for chest pain. Gastrointestinal: Negative for abdominal pain, constipation, nausea and vomiting. Genitourinary: Negative for dysuria, frequency and hematuria. Musculoskeletal: Negative for arthralgias and myalgias. Left thumb amputation Skin: Negative for rash and wound. Neurological: Negative for headaches. Psychiatric/Behavioral: Negative for confusion. All other systems reviewed and are negative. At least 10 systems reviewed and otherwise acutely negative except as in the [place]. Past History Past Medical History: Diagnosis Date ? BPH (benign prostatic hypertrophy) ? CAD (coronary artery disease) 2009 LAD stent (Black) - neg stress test 02/05 and 02/08 ? Chronic renal failure, stage 3 (moderate) (HCC) 2013 Nephrology, Jairon/Gail Addison ? Eczema ? ED (erectile dysfunction) ? Essential hypertension 1982 mod JOSE C per Jairon (no intervention) - neg MRA renals ? Family history of colon cancer mother ? Family history of prostate cancer 2 brothers ? H/O colonoscopy 03/2015 Dr. Jac brian 2019 ? Hypercholesterolemia with hypertriglyceridemia LDL ? Pacemaker 12/2017 Koffi ? Prostate cancer screening 01/2017 ? Renal artery stenosis (HCC) 2013 Jairon consult- cons rx ? Type II or unspecified type diabetes mellitus without mention of complication, not stated as uncontrolled 1999 Fenzyl / Meidel for eye care- retinopathy ? Wears hearing aid in right ear Past Surgical History: Procedure Laterality Date ? CATARACT REMOVAL Bilateral bilat cataracts ? COLONOSCOPY 10/2004 Ahmed ? COLONOSCOPY 03/2015 Marshal- due 2019 ? CORONARY ANGIOPLASTY WITH STENT PLACEMENT 03/2010 LAD coronary stent ? PACEMAKER PLACEMENT 12/2017 Koffi for Black Social History Social History ? Marital status: Spouse name: N/A ? Number of children: N/A ? Years of education: N/A Social History Main Topics ? Smoking status: Never Smoker ? Smokeless tobacco: Never Used ? Alcohol use No ? Drug use: No ? Sexual activity: Not on file Other Topics Concern ? Not on file Social History Narrative since 2006, dating Shanta , NS or drinkers, 3 sons and 3 dtrs, retired in 2002 from [employer]. 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 hydrALAZINE (APRESOLINE) 25 MG tablet Take one 25 mg pill with 50 mg pill to equal 75 mg TID, Disp-270 tablet, R-0Normal !! hydrALAZINE (APRESOLINE) 50 MG tablet Take one 50 mg pill with one 25 mg pill to equal 75mg TID, Disp-270 tablet, R-0Normal insulin glargine (LANTUS) 100 UNIT/ML injection pen Change to 26 U q AM and 18 U q PM, Disp-15 pen, R-0Normal triamcinolone (KENALOG) 0.1 % ointment Apply bid for one wk, then prn, Disp-45 g, R-0, Normal amLODIPine (NORVASC) 10 MG tablet Take 1 tablet by mouth daily, Disp-90 tablet, R-1Normal atorvastatin (LIPITOR) 80 MG tablet Take 1 tablet by mouth daily, Disp-90 tablet, R-1Normal tamsulosin (FLOMAX) 0.4 MG capsule Take 1 capsule by mouth daily, Disp-90 capsule, R-1Normal chlorthalidone (HYGROTON) 25 MG tablet Take 1 tablet by mouth daily, Disp-90 tablet, R-1Normal Lancets MISC Disp-200 each, R-1, NormalTests bid lisinopril (PRINIVIL;ZESTRIL) 40 MG tablet Take 1 tablet by mouth daily, Disp-90 tablet, R-1Normal Insulin Pen Needle (PEN NEEDLES) 31G X 6 MM MISC 2 TIMES DAILY Starting Tue07/18/2018, Disp-180 each, R-3, Normal nitroGLYCERIN (NITROSTAT) 0.[address] 1 tablet under the tongue every 5 minutes as needed for Chest pain up to max of 3 total doses. If no relief after 1 dose, call 911., Disp-30 tablet, R-3Normal glucose blood test strips (FREESTYLE LITE) strip 2 TIMES DAILY Starting Tue12/12/2017, Disp-100 each, R-3, Normal senna (SENOKOT) 8.6 MG tablet Take 1 tablet by mouth dailyHistorical Med aspirin 81 MG tablet Take 81 mg by mouth daily !! - Potential duplicate medications found. Please discuss with provider. No Known Allergies Physical Exam ED Triage Vitals BP Temp Temp src Pulse Resp SpO2 Height Weight -- -- -- -- -- -- -- -- Physical Exam Constitutional: He is oriented to person, place, and time. He appears well-developed and well-nourished. Elderly, pleasant male sitting upright in bed, large dressing applied to LEFT thumb upon arrival HENT: Head: Normocephalic and atraumatic. Mouth/Throat: Oropharynx is clear and moist. Eyes: Pupils are equal, round, and reactive to light. Conjunctivae and EOM are normal. Neck: Normal range of motion. Neck supple. Cardiovascular: Normal rate and regular rhythm. Pulmonary/Chest: Effort normal and breath sounds normal. No respiratory distress. He has no wheezes. He has no rales. Abdominal: Soft. Bowel sounds are normal. He exhibits no distension. There is no tenderness. There is no rebound. Musculoskeletal: Partial LEFT thumb amputation, dressing applied to LEFT thumb but distal tip of thumb noted on ice in bag at bedside. Dressing left for ortho to remove. Hand otherwise neurovascular intact. Neurological: He is alert and oriented to person, place, and time. Skin: Skin is warm and dry. Psychiatric: He has a normal mood and affect. His behavior is normal. Nursing note and vitals reviewed. Diagnostics Labs: Results for orders placed or performed during the hospital encounter of 11/16/18 Protime-INR Result Value Ref Range Protime 10.0 9.0 - 12.0 s INR 0.9 0.9 - 1.1 NA CBC Result Value Ref Range WBC 13.3 (H) 3.6 - 10.7 10*3/uL RBC 4.49 4.40 - 5.90 10*6/uL Hemoglobin 13.4 13.0 - 18.0 g/dL Hematocrit 41.2 40.0 - 52.0 % MCV 91.9 80.0 - 98.0 fL MCH 29.9 26.0 - 34.0 pg MCHC 32.5 32.0 - 36.0 % RDW 13.8 11.5 - 14.5 % Platelets 335 140 - 440 10*3/uL MPV 8.5 7.4 - 10.4 fL Basic Metabolic Panel Result Value Ref Range Sodium 143 135 - 145 mmol/L Potassium 3.5 3.5 - 5.1 mmol/L Chloride 107 98 - 107 mmol/L CO2 27 22 - 30 mmol/L Anion Gap 9 NA Glucose 90 70 - 100 mg/dL BUN 35 (H) 7 - 20 mg/dL CREATININE 1.72 (H) 0.52 - 1.25 mg/dL eGFR 46.9 >60 mL/min EGFR IF NonAfrican Zambian 38.7 >60 mL/min Calcium 9.1 8.4 - 10.4 mg/dL POCT GLUCOSE Result Value Ref Range Glucose 108 mg/dL QC OK? yes POCT Glucose Result Value Ref Range POC Glucose 63 (L) 70 - 100 mg/dL POCT Glucose Result Value Ref Range POC Glucose 108 (H) 70 - 100 mg/dL TYPE AND SCREEN Result Value Ref Range ABO Grouping A NA Rh Type NEG NA Antibody Screen NEG NA Radiographs: No results found. Procedures: EKG: All EKG's areinterpreted by the Emergency Department Physician in the absence of a fiber optics engineer.?Please see their note for interpretation of EKG. ED Course and MDM In brief, Brian Joshi shanique 78 y.o. male who presented to the emergency department For evaluation of LEFT thumb amputation that occurred earlier this afternoon while using a table saw. Initially seen and evaluated at [facility], transferred to this emergency Department for orthopedic evaluation and management. Arrives with stable vital signs, pain manage, no distress. Risk factors include amputation 3-1/2 hours prior to arrival. Tests ordered to evaluate this are . X-ray imaging, patient did not arrive with a CD with x-rays obtained from outlying hospital. We will additionally obtain a glucose, basic blood work. He is a diabetic, anticipate the need to keep him nothing by mouth while orthopedic physician has an opportunity to evaluate. Please see below for medications administered to treat symptoms. Patient medical, social and family history reviewed. Nursing notes and vitals reviewed. Patient reassessed at 6 PM, has had significant improvement in his pain, orthopedics at bedside to complete procedure. Tests results have been reviewed and interpreted by myself, and reviewed with patient and available family. Pertinent results include dehydration was initially hypoglycemic, managed with half an amp of D50. He improved after this, was kept nothing by mouth until orthopedics could evaluate. They opted to do bedside management in the emergency department with localized anesthesia. Were unable to preserve the distal tip of the thumb, and thus no OR repair was required. Please refer to their documentation for full procedure. Patient tolerated the procedure well, no complications. Plan will be to Discharge with outpatient follow-up with orthopedics. Pain medication prescription provided for patient as needed, in addition to course of Keflex for antibiotic coverage. He will need to follow up closely with orthopedics. Discharge information and guidance and wound care have been provided. I have low suspicion of sepsis, retained foreign body based on examination and evaluation in the emergency department, and thus consider discharge and outpatient follow up appropriate. Follow up instructions and information has been reviewed with patient, who has verbalized understanding. Patient also advised of symptoms that would necessitate immediate return to the emergency department, such as increasing pain, redness, fevers or drainage. Patient has expressed understanding, is amenable to plan of care, and is discharged in stable condition. ED Medication Orders Start Ordered Status Ordering Provider 11/16/18204411/16/182030 oxyCODONE-acetaminophen (PERCOCET) 5-325 MG per tablet 1 tablet ONCE Last DEC action: Given - by PARUL ERIC on 11/16/18 at 2036 YAHIR WADDELL 11/16/18 17511/16/18 1758 lidocaine 1 % injection Comments: Pan Dorsey: cabinet override Last DEC action: Given by Other - by ETHAN MANJARREZ on 11/16/18 at 1810 11/16/18 1730 11/16/18 1721 ceFAZolin (ANCEF) 1 g in dextrose 5 % 50 mL IVPB (premix) ONCE Last DEC action: Stopped - by PARUL ERIC on 11/16/18 at 2038 VIDHYA HAMILTON 11/16/18 1730 11/16/18 1721 Lkltckc-Jpxyfl-Ecbkt Pertussis (BOOSTRIX) injection 0.5 mL ONCE Last DEC action: Given - by ETHAN MANJARREZ on 11/16/18 at 1755 VIDHYA HAMILTON 11/16/18 1730 11/16/18 1721 morphine (PF) injection 2 mg ONCE Last DEC action: Given - by ETHAN MANJARREZ on 11/16/18 at 1750 VIDHYA HAMILTON 11/16/18 1730 11/16/18 1726 dextrose injection 25 g ONCE Last MAR action: Given - by ETHAN MANJARREZ on 11/16/18 at 1729 VIDHYA HAMILTON Final Impression 1. Traumatic amputation of left thumb, initial encounter DISPOSITION Decision To Discharge 11/16/2018 08:05:52 PM (Please note that portions of this note may have been completed with a voice recognition program. Efforts were made to edit the dictations but occasionally words aremis-transcribed.) Vidhya Hamilton PA-C [employer] Vidhya Hamilton PA-C 11/23/18 1658 Normal [facility] Glucose,Bedsideon 11-16-2018 Glucose mass conc 108 mg/dL High 70-100 [facility] Comment on above: Result Comment: Test performed by glucose meter. Results may be 10%-15% lower than serum/plasma values. (CLIA ID [id number]) Performed By: #### B GLU #### [address] [address] [place] [address] Glucose mass conc 63 mg/dL Low 70-100 [facility] Comment on above: Result Comment: Test performed by glucose meter. Results may be 10%-15% lower than serum/plasma values. (CLIA ID [id number]) Performed By: #### B GLU #### [address] [address] Hemogramon 11-16-2018 Erythrocyte distribution width Ratio (RBC) 13.8 % Normal 11.5-14.5 [facility] Comment on above: Performed By: #### H EMOG, PT, BMP3 #### [address] [address] [place] [address] Hematocrit Volume Fraction (Bld) 41.2 % Normal 40.0-52.0 [facility] Comment on above: Performed By: #### H MANI, PT, BMP3 #### [address] [address] Hemoglobin mass conc (Bld) 13.4 g/dL Normal 13.0-18.0 [facility] Comment on above: Performed By: #### H MANI PT, BMP3 #### [address] [address] [address] [place], [place] MCH Entitic mass (RBC) 29.9 pg Normal 26.0-34.0 [facility] Comment on above: Performed By: #### H EMOG, PT, BMP3 #### [address] [address] [address] [place], [place] MCHC mass conc (RBC) 32.5 % Normal 32.0-36.0 [facility] Comment on above: Performed By: #### H EMOG, PT, BMP3 #### [address] [address] [address] [place], [place] MCV Entitic volume (RBC) 91.9 fL Normal 80.0-98.0 [facility] Comment on above: Performed By: #### H EMOG, PT, BMP3 #### [address] Platelet mean volume Entitic volume (Bld) 8.5 fL Normal 7.4-10.4 [facility] Comment on above: Performed By: #### H EMOG, PT, BMP3 #### [address] Platelets #/vol (Bld) 335 10*3/uL Normal 140-440 [facility] Comment on above: Performed By: #### H EMOG, PT, BMP3 #### [address] [address] [address] [place], [place] RBC #/vol (Bld) 4.49 10*6/uL Normal 4.40-5.[address] [facility] Comment on above: Performed By: #### H EMOG, PT, BMP3 #### [address] WBC #/vol (Bld) 13.3 10*3/uL High 3.6-10.7 [facility] Comment on above: Performed By: #### H EMOG, PT, BMP3 #### [address] Prothrombin Timeon 9 INR Coag RelTime (PPP) 0.9 Normal 0.9-1.1 [facility] [employer] [facility] Comment on above: Result Comment: Tigre mmended Anticoagulant Therapy: SEE BELOW ----- INR of 2.0 - 3.0 : - Prophylaxis of Venous Thrombosis (high-risk surgery) - Treatment of Venous Thrombosis - Treatment of Pulmonary Embolism (Includes tissue heart valves, Acute Myocardial Infarction to prevent systemic embolism, Valvular Heart Disease, and Atrial Fibrillation) ----- INR of 2.5 - 3.5 : - Mechanical Prosthetic Valves (high risk) - If oral anticoagulant therapy is used to prevent Myocardial Infarction Performed By: #### H EMOG, PT, BMP3 #### [facility] [employer] [facility] [address] [place], [place] Prothrombin time (PT) Coag time (PPP) 10.0 s Normal 9.0-12.0 [facility] Comment on above: Result Comment: . Performed By: #### H EMOG, PT, BMP3 #### [facility] [address] [place] [address] TS GELon 11-16-2018 TS GEL ABO Group: A Rh, Gel: NEG Antibody Screen Gel: NEG Normal [facility] Comment on above: Performed By: #### H EMOLuis A, BMP3, PT #### The performing lab is in the report. BMPon 05-10-2018 Anion gap 3 molar conc 11 mmol/L Normal 5-16 [facility] Comment on above: Order Comment: Aguilar Amaro Performed By: #### L 500.90565, L500.16462 ####[facility] [id number] [place], [place] [address]Zr# [phone] Calcium mass conc 8.9 mg/dL Normal 8.5-10.1 [facility] Comment on above: Order Comment: Aguilar Amaro Performed By: #### L 500.01869, L500.46661 ####[facility] [id number] [place], [place] [address]Pw# [phone] Chloride molar conc 109 mmol/L High 98-107 [facility] Comment on above: Order Comment: Campu s: M Performed By: #### L 500.65975, L500.05109 ####[facility] [id number] [place], [place] [address]Qs# [phone] CO2 molar conc 23 mmol/L Normal 21-32 [facility] Comment on above: Order Comment: Campu s: M Performed By: #### L 500.13571, L500.63266 ####[facility] [id number] [place], [place] [address]Ak# [phone] Creatinine mass conc 2.020 mg/dL High 0.670-1.170 [facility] Comment on above: Order Comment: Campu s: M Result Comment: Temi ents receiving either N-Acetylcysteine (NAC) orMetamizole prior to venipuncture, may have falsely depressedresults. Performed By: #### L 500.16513, L500.35716 ####[facility] [id number] [place] [id number]# [phone] Glucose mass conc 66 mg/dL Low 70-100 [facility] Comment on above: Order Comment: Campu s: M Result Comment: 70-1 00- Normal Fasting; 100-125 Impaired Fasting; greaterthan 126 on more than one result- Diabetes. ADA guidelines.Results may be falsely elevated after the administration ofSulfapyridine.Results may be falsely depressed after the administration ofSulfasalazine. Performed By: #### L 500.40725, L500.36188 ####[facility] [id number] [place], [place] [address]Vs# [phone] Potassium molar conc 3.6 mmol/L Normal 3.5-5.1 [facility] [place] Comment on above: Order Comment: Campu s: M Performed By: #### L 500.22642, L500.45359 ####[facility] [id number] [place], [place] [address]Kv# [phone] Sodium molar conc 143 mmol/L Normal 136-145 [facility] Comment on above: Order Comment: Campu s: M Performed By: #### L 500.49483, L500.28098 ####[facility] [id number] [place], [place] [address]Xg# [phone] Urea nitrogen mass conc 39 mg/dL High 7-26 [facility] Comment on above: Order Comment: Campu s: M Performed By: #### L 500.22681, L500.03419 ####[facility] [id number] [place], [place] [address]Ho# [phone] Urea nitrogen/Creatinine mass ratio 19 mg/mg Normal 15-24 [facility] Comment on above: Order Comment: Campu s: M Performed By: #### L 500.19772, L500.21674 ####[facility] [id number] [place] [address]Mn# [phone] GFR ESTon 05-10-2018 IF AMER 39 ML/MIN Normal [facility] Comment on above: Order Comment: Campu s: M Performed By: #### L 500.84528, L500.14838 ####[facility] [id number] [place] [address]Jc# [phone] IF non-AFR AMER 32 ML/MIN Normal [facility] Comment on above: Order Comment: Campu s: M Performed By: #### L 500.42071, L500.99330 ####[facility] [id number] [place] [address]Jl# [phone] GLUCOSE METERon 05-10-2018 Glucose mass conc 116 mg/dL Normal 85-125 [facility] Glucose mass conc 71 mg/dL Low 85-125 [facility] ORon 05-10-2018 OPERATIVE REPORT Normal [facility] OR DATE OF SERVICE: 05/10/2018PREOPERATIVE DIAGNOSIS: Epiretinal membrane of the right eyePOSTOPERATIVE DIAGNOSIS: Epiretinal membrane of the right eyeOPERATION: Pars plana vitrectomy, membrane peel, air fluid exchange of the righteye.SURGEON: Osorio Acharya MDASSISTANT: Cholo Olivera.COMPLICATIONS: None.SPECIMENS: None.ANESTHESIA: MAC with retrobulbar block.ESTIMATED BLOOD LOSS: Minimal.INDICATIONS FOR PROCEDURE: Mr. Joshi had a visually significant epiretinalmembrane in the right eye. After discussing the risks, benefits, and alternatives tosurgery, he gave his consent for surgery.DETAILS OF THE PROCEDURE: The patient was brought to the operating room where MACanesthesia was induced. A surgical time out was performed and all in the room agreedthat the right eye was the correct eye for surgery. The right eye was administered aretrobulbar block using seven mL of a 1:1 solution of 0.75% Marcaine and 4%preservative-free lidocaine. Additionally peribulbar Ancef was administeredpreoperatively as well. The right eye was prepped and draped in the usual sterilefashion. A 25 gauge vitrectomy cannula was placed in the infratemporal quadrant 3 mmposterior to the limbus. The infusion line was placed in this cannula, visualizedinside of the eye, and then turned on. Additional cannulas were placed in a similarfashion supratemporally and superonasally. A core vitrectomy was performed. Thevitreous was noted to have already detached from the optic nerve. A completevitrectomy was then performed. Diluted ICG dye was placed on the macular surface andallowed to remain for 80 seconds before being completely irrigated from the eye.Using the ILM forceps and contact lens visualization, the ILM and ERM were removedfrom the central macula. 360 degrees of scleral depressed exam was performed underthe BIOM viewing system and no breaks or tears were noted. 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 An airfluid exchange was performed. Each of the vitrectomy cannulas was removed and eachof the sclerotomy sites were noted to be self sealed and watertight. The eye was atphysiologic pressure dexamethasone was administered subconjunctivally inferiorly. [facility] PATIENT NAME: BRIAN JOSHI[address] MEDICAL REC #: [id number], [place] [address] DATE:DISCHARGE DATE:OPERATIVE REPORT ATTENDING PHY: Osorio Acharya MDThe lid speculum and drapes were removed. Atropine drops and Maxitrol ointment wereplaced. A patch and shield were placed. ___Osorio Acharya, [facility]/[id number]: 05/10/2018 09:07DT: 05/10/2018 09:43SSI File#: [id number] #: [id number]/Reviewed by07/12/18 1225 JULY [facility] PATIENT NAME: LUIS JOSHI [facility] [address] REC #: [id number], [place] [address] DATE:DISCHARGE DATE:OPERATIVE REPORT ATTENDING PHY: Osorio Acharya MD [facility] [place] Basic Metabolic Panelon 03-0 Calcium mass conc 9.5 mg/dL Normal 8.4-10.[address] [facility] Comment on above: Performed By: #### H MURPHY SINGLETON3, PT #### The performing lab is in the report. Anion gap molar conc 13 mmol/L Normal [facility] Comment on above: Performed By: #### H MURPHY SINGLETON3, PT #### The performing lab is in the report. CO2 molar conc 24 mmol/L Normal 22-30 [facility] Comment on above: Performed By: #### H MANI BMP3, PT #### The performing lab is in the report. Creatinine mass conc 1.86 mg/dL High 0.52-1.25 [facility] Comment on above: Performed By: #### MURPHY CARTER3, PT #### The performing lab is in the report. GFR/1.73 sq M predicted among blacks MDRD vol rate/area (S/P/Bld) 42.9 mL/min/{1.73_m2} Normal >60 [facility] Comment on above: Performed By: #### MURPHY CARTER3, PT #### The performing lab is in the report. GFR/1.73 sq M predicted among non-blacks MDRD vol rate/area (S/P/Bld) 35.4 mL/min/{1.73_m2} Normal >60 [facility] Comment on above: Result Comment: Sour ce- MDRD equation with creatinine calibration to IDMS(NKDEP) eGFR not recommended for drug dose adjustment Performed By: #### MURPHY CARTER3, PT #### The performing lab is in the report. Glucose mass conc 90 mg/dL Normal 70-100 [facility] Comment on above: Performed By: #### STEVEN CARTER, PT #### The performing lab is in the report. Urea nitrogen mass conc 41 mg/dL High 7-20 [facility] Comment on above: Performed By: #### STEVEN CARTER, PT #### The performing lab is in the report. Chloride molar conc 106 mmol/L Normal 98-107 [facility] Comment on above: Performed By: #### STEVEN CARTER, PT #### The performing lab is in the report. Potassium molar conc 4.3 mmol/L Normal 3.5-5.1 [facility] Comment on above: Performed By: #### MURPHY CARTER3, PT #### The performing lab is in the report. Sodium molar conc 144 mmol/L Normal 137-145 [facility] Comment on above: Performed By: #### MURPHY CARTER3, PT #### The performing lab is in the report. Hemogramon 12-22-2017 Erythrocyte distribution width Ratio (RBC) 13.5 % Normal 11.5-14.5 [facility] Comment on above: Performed By: #### H EMOG, BMP3, PT #### The performing lab is in the report. Hematocrit Volume Fraction (Bld) 40.5 % Normal 40.0-52.0 [facility] Comment on above: Performed By: #### MURPHY CARTER3, PT #### The performing lab is in the report. Hemoglobin mass conc (Bld) 13.1 g/dL Normal 13.0-18.0 [facility] Comment on above: Performed By: #### MURPHY CARTER3, PT #### The performing lab is in the report. MCH Entitic mass (RBC) 29.8 pg Normal 26.0-34.0 [facility] Comment on above: Performed By: #### MURPHY CARTER3, PT #### The performing lab is in the report. MCHC mass conc (RBC) 32.4 % Normal 32.0-36.0 [facility] Comment on above: Performed By: #### MURPHY CARTER3, PT #### The performing lab is in the report. MCV Entitic volume (RBC) 91.9 fL Normal 80.0-98.0 [facility] Comment on above: Performed By: #### MURPHY CARTER3, PT #### The performing lab is in the report. Platelet mean volume Entitic volume (Bld) 10.2 fL Normal 7.4-10.4 [facility] Comment on above: Performed By: #### MURPHY CARTER3, PT #### The performing lab is in the report. Platelets #/vol (Bld) 360 10*3/uL Normal 140-440 [facility] Comment on above: Performed By: #### MURPHY CARTER3, PT #### The performing lab is in the report. RBC #/vol (Bld) 4.41 10*6/uL Normal 4.40-5.90 [facility] Comment on above: Performed By: #### MURPHY CARTER3, PT #### The performing lab is in the report. WBC #/vol (Bld) 12.6 10*3/uL High 3.6-10.[address] [facility] Comment on above: Performed By: #### H EMOG, BMP3, PT #### The performing lab is in the report. Prothrombin Timeon 8 INR Coag RelTime (PPP) 0.9 {INR} Normal 0.9-1.1 [employer] Comment on above: Result Comment: Tigre mmended Anticoagulant Therapy: SEE BELOW ----- INR of 2.0 - 3.0 : - Prophylaxis of Venous Thrombosis (high-risk surgery) - Treatment of Venous Thrombosis - Treatment of Pulmonary Embolism (Includes tissue heart valves, Acute Myocardial Infarction to prevent systemic embolism, Valvular Heart Disease, and Atrial Fibrillation) ----- INR of 2.5 - 3.5 : - Mechanical Prosthetic Valves (high risk) - If oral anticoagulant therapy is used to prevent Myocardial Infarction Performed By: #### H EMOG, BMP3, PT #### The performing lab is in the report. Prothrombin time (PT) Coag time (PPP) 9.9 s Normal 9.0-12.0 [employer] Comment on above: Result Comment: . Performed By: #### H EMOG, BMP3, PT #### The performing lab is in the report. Culture, urine Bacteria identified Cx Nom (U) Culture exhibits no growth. [facility] Work Phone: Vital Signs Date Time Vital Sign Value Performing Clinician Facility 03-26-2025 09:36-0400 Body height 182.9 cm Jose Clarke [employer] Work Phone: [facility] 03-26-2025 09:36-0400 Body mass index (BMI) [Ratio] 24.14 kg/m2 Jose Clarke [employer] Work Phone: [facility] 03-26-2025 09:36-0400 Body temperature 98.71 [degF] Jose Clarke [employer] Work Phone: [facility] 03-26-2025 09:36-0400 Body weight 80.74 kg Jose Clarke [employer] Work Phone: [facility] 03-26-2025 09:36-0400 Diastolic blood pressure 55 mm[Hg] Jose Clarke [employer] Work Phone: [facility] 03-26-2025 09:36-0400 Heart rate 76 /min Jose Clarke DO Work Phone: [facility] [employer] 03-26-2025 09:36-0400 SaO2% (BldA) [Mass fraction] 98 % Jose Clarke DO Work Phone: [facility] [employer] 03-26-2025 09:36-0400 Systolic blood pressure 121 mm[Hg] Jose Clarke DO Work Phone: [facility] [employer] 12-21-2024 07:49-0500 Body height 182.9 cm [facility] 12-21-2024 07:49-0500 Body mass index (BMI) [Ratio] 24.14 kg/m2 Jose Clarke DO Work Phone: [facility] [employer] 12-21-2024 07:49-0500 Body temperature 98.49 [degF] Jose Clarke DO Work Phone: [facility] [employer] 12-21-2024 07:49-0500 Body weight 80.74 kg Jose [facility] 12-21-2024 07:49-0500 Diastolic blood pressure 66 mm[Hg] Jose Clarke DO Work Phone: [facility] [employer] 12-21-2024 07:49-0500 Heart rate 73 /min Jose Clarke DO Work Phone: [facility] [employer] 12-21-2024 07:49-0500 SaO2% (BldA) [Mass fraction] 97 % Jose Clarke DO Work Phone: [employer] 12-21-2024 07:49-0500 Systolic blood pressure 135 mm[Hg] Jose Clarke DO Work Phone: [facility] [employer] 10-30-2024 08:17-0500 Body height 182.9 cm Jose Clarke DO Work Phone: [facility] 10-30-2024 08:17-0500 Body mass index (BMI) [Ratio] 23.6 kg/m2 Jose Clarke DO Work Phone: [facility] [employer] 10-30-2024 08:17-0500 Body temperature 98.6 [degF] Jose Clarke DO Work Phone: [facility] [employer] 10-30-2024 08:17-0500 Body weight 78.93 kg Jose Clarke DO Work Phone: [facility] [employer] 10-30-2024 08:17-0500 Diastolic blood pressure 58 mm[Hg] Jose Clarke DO Work Phone: [facility] [employer] 10-30-2024 08:17-0500 Heart rate 78 /min Jose Clarke DO Work Phone: [facility] [employer] 10-30-2024 08:17-0500 SaO2% (BldA) [Mass fraction] 96 % Jose Clarke DO Work Phone: [facility] [employer] 10-30-2024 08:17-0500 Systolic blood pressure 123 mm[Hg] Jose Clarke DO Work Phone: [facility] [employer] 07-03-2024 08:21-0400 Body height 185.4 cm Jose Clarke DO Work Phone: [facility] [employer] 07-03-2024 08:21-0400 Body mass index (BMI) [Ratio] 23.35 kg/m2 Jose Clarke DO Work Phone: [facility] [employer] 07-03-2024 08:21-0400 Body temperature 97.81 [degF] Jose Clarke DO Work Phone: [facility] [employer] 07-03-2024 08:21-0400 Body weight 80.29 kg Jose Clarke DO Work Phone: [facility] [employer] 07-03-2024 08:21-0400 Diastolic blood pressure 70 mm[Hg] Jose Marcusa DO Work Phone: [facility] [employer] 07-03-2024 08:21-0400 Heart rate 67 /min Jose Clarke DO Work Phone: [facility] [employer] 07-03-2024 08:21-0400 SaO2% (BldA) [Mass fraction] 99 % Jose Clarke DO Work Phone: [facility] [employer] 07-03-2024 08:21-0400 Systolic blood pressure 138 mm[Hg] Jose Clarke DO Work Phone: [facility] [employer] 02-07-2024 11:26-0400 Diastolic blood pressure 78 mm[Hg] Jose Clarke DO Work Phone: [facility] [employer] 02-07-2024 11:26-0400 Heart rate 68 /min Jose Clarke DO Work Phone: [facility] [employer] 02-07-2024 11:26-0400 Systolic blood pressure 136 mm[Hg] Jose Clarke DO Work Phone: [facility] [employer] 02-07-2024 10:49-0400 Body height 182.9 cm Jose Clarke DO Work Phone: [facility] [employer] 02-07-2024 10:49-0400 Body mass index (BMI) [Ratio] 24.55 kg/m2 Jose Clarke DO Work Phone: [facility] [employer] 02-07-2024 10:49-0400 Body temperature 97.7 [degF] Jose Clarke DO Work Phone: [facility] [employer] 02-07-2024 10:49-0400 Body weight 82.1 kg Jose Clarke DO Work Phone: [facility] [employer] 02-07-2024 10:49-0400 SaO2% (BldA) [Mass fraction] 95 % Jose Clarke DO Work Phone: [facility] [employer] 11-08-2023 08:21-0500 Body height 182.9 cm Jose Clarke DO Work Phone: [facility] [employer] 11-08-2023 08:21-0500 Body mass index (BMI) [Ratio] 24.01 kg/m2 Jose Clarke DO Work Phone: [facility] [employer] 11-08-2023 08:21-0500 Body temperature 98.2 [degF] Jose Clarke DO Work Phone: [facility] [employer] 11-08-2023 08:21-0500 Body weight 80.29 kg Jose Clarke DO Work Phone: [facility] [employer] 11-08-2023 08:21-0500 Diastolic blood pressure 60 mm[Hg] Jose Clarke DO Work Phone: [facility] [employer] 11-08-2023 08:21-0500 Heart rate 91 /min Jose Clarke DO Work Phone: [facility] [employer] 11-08-2023 08:21-0500 SaO2% (BldA) [Mass fraction] 97 % Jose Clarke DO Work Phone: [facility] [employer] 11-08-2023 08:21-0500 Systolic blood pressure 123 mm[Hg] Jose Clarke DO Work Phone: [facility] [employer] 02-14-2023 12:21-0400 Body height 182.9 cm Jose Clarke DO Work Phone: [facility] [employer] 02-14-2023 12:21-0400 Body mass index (BMI) [Ratio] 23.6 kg/m2 Jose Clarke DO Work Phone: [facility] [employer] 02-14-2023 12:21-0400 Body temperature 98.4 [degF] Jose Clarke DO Work Phone: [facility] [employer] 02-14-2023 12:21-0400 Body weight 78.93 kg Jose Clarke DO Work Phone: [facility] [employer] 02-14-2023 12:21-0400 Diastolic blood pressure 65 mm[Hg] Jose Clarke DO Work Phone: [facility] [employer] 02-14-2023 12:21-0400 Heart rate 70 /min Jose Clarke DO Work Phone: [facility] [employer] 02-14-2023 12:21-0400 SaO2% (BldA) [Mass fraction] 98 % Jose Clarke DO Work Phone: [facility] [employer] 02-14-2023 12:21-0400 Systolic blood pressure 134 mm[Hg] Jose Clarke DO Work Phone: [facility] 02-03-2023 12:41-0400 Diastolic blood pressure 70 mm[Hg] [facility] 02-03-2023 12:41-0400 Systolic blood pressure 160 mm[Hg] [facility] 02-03-2023 11:12-0400 Heart rate 90 /min [facility] 02-03-2023 10:41-0400 Body height 172.72 cm [facility] 02-03-2023 10:41-0400 Body mass index (BMI) [Ratio] 26.1 kg/m2 [facility] 02-03-2023 10:41-0400 Body temperature 97.4 [degF] [facility] 02-03-2023 10:41-0400 Body weight 77.9 kg [facility] 02-03-2023 10:41-0400 Respiratory rate 15 /min [facility] 02-03-2023 10:41-0400 SaO2% (BldA) [Mass fraction] 98 % [facility] 09-13-2022 13:45-0500 Body temperature 98.4 [degF] Dr. Jose Clarke Work Phone: [facility] Work Phone: 09-13-2022 13:45-0500 Diastolic blood pressure 58 mm[Hg] Dr. Jose Clarke Work Phone: [facility] Work Phone: 09-13-2022 13:45-0500 Heart rate 71 /min Dr. Jose Clarke Work Phone: [facility] Work Phone: 09-13-2022 13:45-0500 Respiratory rate 18 /min Dr. Jose Clarke Work Phone: [facility] Work Phone: 09-13-2022 13:45-0500 SaO2% (BldA) [Mass fraction] 98 % Dr. Jose Clarke Work Phone: [facility] Work Phone: 09-13-2022 13:45-0500 Systolic blood pressure 127 mm[Hg] Dr. Jose Clarke Work Phone: [facility] Work Phone: 09-08-2022 11:17-0500 Body height 182.[address] Jose Clarke Work Phone: [facility] Work Phone: 09-08-2022 11:17-0500 Body weight 81.[address] Jose Clarke Work Phone: [facility] Work Phone: 09-01-2022 16:56-0500 SaO2% (BldA) [Mass fraction] 96 % Dr. Jose lCarke Work Phone: [facility] Work Phone: 09-01-2022 15:02-0500 Diastolic blood pressure 51 mm[Hg] Dr. Jose Clarke Work Phone: [facility] Work Phone: 09-01-2022 15:02-0500 Heart rate 80 /min Dr. Joes Clarke Work Phone: [facility] Work Phone: 09-01-2022 15:02-0500 Systolic blood pressure 123 mm[Hg] Dr. Jose Clarke Work Phone: [facility] Work Phone: 09-01-2022 13:28-0500 Body temperature 97 [degF] Dr. Jose Clarke Work Phone: [facility] Work Phone: 09-01-2022 13:28-0500 Inhaled oxygen flow rate 2 L/min Dr. Jose Clarke Work Phone: [facility] Work Phone: 09-01-2022 13:28-0500 Respiratory rate 16 /min Dr. Jose Clarke Work Phone: [facility] Work Phone: 09-01-2022 05:56-0500 Body weight 81.[address] Jose Clarke Work Phone: [facility] Work Phone: 08-29-2022 23:31-0500 Body mass index (BMI) [Ratio] 23.7 kg/m2 Dr. Jose Clarke Work Phone: [facility] Work Phone: 08-28-2022 19:24-0400 Body temperature 98.8 [degF] [facility] Work Phone: 08-28-2022 19:24-0400 Diastolic blood pressure 62 mm[Hg] [facility] Work Phone: 08-28-2022 19:24-0400 Heart rate 88 /min [facility] Work Phone: 08-28-2022 19:24-0400 Respiratory rate 18 /min [facility] Work Phone: 08-28-2022 19:24-0400 SaO2% (BldA) [Mass fraction] 96 % [facility] Work Phone: 08-28-2022 19:24-0400 Systolic blood pressure 153 mm[Hg] [facility] Work Phone: 08-28-2022 15:54-0400 Body height 185.42 cm [facility] Work Phone: 08-28-2022 15:54-0400 Body mass index (BMI) [Ratio] 22.3 kg/m2 [facility] Work Phone: 08-28-2022 15:54-0400 Body weight 76.65 kg [facility] Work Phone: 04-23-2021 13:15-0400 Diastolic blood pressure 67 mm[Hg] Bucky Radha DO Work Phone: [facility] Work Phone: 04-23-2021 13:15-0400 Heart rate 88 /min Bucky Radha DO Work Phone: [facility] Work Phone: 04-23-2021 13:15-0400 Respiratory rate 16 /min Bucky Radha DO Work Phone: [facility] Work Phone: 04-23-2021 13:15-0400 SaO2% (BldA) [Mass fraction] 96 % Bucky Radha DO Work Phone: [facility] Work Phone: 04-23-2021 13:15-0400 Systolic blood pressure 151 mm[Hg] Bucky Radha DO Work Phone: [employer] Work Phone: 04-23-2021 11:57-0400 Body temperature 98.1 [degF] Bucky Radha DO Work Phone: [facility] Work Phone: 04-23-2021 09:12-0400 Body height 185.4 cm Bucky Radha DO Work Phone: [facility] Work Phone: 04-23-2021 09:12-0400 Body mass index (BMI) [Ratio] 22.43 kg/m2 Bucky Radha DO Work Phone: [facility] Work Phone: 04-23-2021 09:12-0400 Body weight 77.11 kg Bucky Radha DO Work Phone: [facility] Work Phone: NEG[employer]: [employer]lighted [id number] 11:25-0500 BMI (Body Mass Index) 26.64 kg/m2 Arlene Neely LPN [facility] Work Phone: NEGATED: Highlighted [id number] 11:25-0500 BP Diastolic 69 mm[Hg] Arlene Neely LPN [facility] Work Phone: NEGATED: Highlighted [id number] 11:25-0500 BP Diastolic 75 mm[Hg] Arlene Neely LPN [facility] Work Phone: NEGATED: Highlighted [id number] 11:25-0500 BP Systolic 164 mm[Hg] Arlene Neely [employer] [facility] Work Phone: NEGATED: Highlighted [id number] 11:25-0500 BP Systolic 159 mm[Hg] Arleneshukri Neely [employer] [facility] Work Phone: NEGATED: Highlighted [id number] 11:25-0500 Height 181.61 cm Arlene Neely SALES [employer] [facility] Work Phone: NEGATED: Highlighted [id number] 11:25-0500 Height 182 cm Arlenejuliet Neely [employer] [facility] Work Phone: NEGATED: Highlighted [id number] 11:25-0500 Pulse (Heart Rate) 69 /min Arlene Neely LPN [facility] Work Phone: NEGATED: Highlighted [id number] 11:25-0500 Weight 87.54 kg Arlene Neely [employer] [facility] Work Phone: NEGATED: Highlighted [id number] 11:25-0500 Weight 88 kg Arleneshukri Neely [employer] [facility] Work Phone: Encounters Encounter Date Encounter Type Care Provider Facility Start: 03-26-2025 End: 03-26-2025 Office outpatient visit 25 minutes Jose Clarke DO Work Phone: [facility] Comment on above: Type 2 diabetes yanely itus with stage 3b chronic kidney disease, with long-term current use of insulin (HCC) (Primary Dx); 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; Essential hypertension; Hypercholesterolemia with hypertriglyceridemia; Balanitis; Stage 3b chronic kidney disease (HCC) Start: 03-26-2025 End: 03-26-2025 ambulatory [facility] Start: 02-27-2025 End: 02-27-2025 Orders Only Jose Clarke DO Work Phone: [facility] Start: 02-11-2025 End: 02-12-2025 Refill [facility] Start: 12-21-2024 End: 12-21-2024 Office outpatient visit 25 minutes Jose Lirianoniteshevy DO Work Phone: [facility] [employer] Comment on above: Vertigo (Primary Dx) ; Essential hypertension; Stage 3b chronic kidney disease (HCC); 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; Hypercholesterolemia with hypertriglyceridemia; Right thalamic stroke (HCC); Hypoglycemic event due to diabetes (HCC); Other constipation Start: 12-21-2024 End: 12-21-2024 ambulatory [facility] Start: 12-17-2024 End: 12-17-2024 Emergency department patient visit [facility] Start: 12-17-2024 End: 12-18-2024 ambulatory Harvey Flores Facility:[facility] Start: 11-13-2024 End: 11-21-2024 Patient encounter procedure Paz Moffett RN [facility] Communication Start: 11-13-2024 End: 11-13-2024 Office outpatient visit 15 minutes Jose Payton Evy DO Work Phone: [facility] [employer] Comment on above: Adverse effect of or al hypoglycemic drug, initial encounter (Primary Dx); Type 2 diabetes mellitus with stage 3b chronic kidney disease, with long-term current use of insulin (HCC) Start: 11-13-2024 End: 11-21-2024 ambulatory Paz Moffett RN [facility] Start: 11-08-2024 End: 01-18-2025 Orders Only Jose Clarke DO Work Phone: [facility] Comment on above: Medication Question Start: 11-05-2024 End: 11-05-2024 Telephone encounter Jose Clarke DO [facility] Comment on above: Results Start: 10-30-2024 End: 10-30-2024 Office outpatient visit 25 minutes Jose Clarke DO Work Phone: [facility] Comment on above: Type 2 diabetes yanely itus with stage 3b chronic kidney disease, without long-term current use of insulin (HCC) (Primary Dx); Hypercholesterolemia with hypertriglyceridemia; Stage 3b chronic kidney disease (HCC); 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; Essential hypertension; Chronic left-sided lumbar radiculopathy; Left foot drop Start: 10-30-2024 End: 10-30-2024 ambulatory [facility] Start: 10-19-2024 End: 01-18-2025 Transcribe Orders Radha Torres MD Work Phone: [facility] [employer] [facility] Comment on above: Chronic kidney disea se, stage 3a (HCC) (Primary Dx); Secondary hyperparathyroidism of renal origin (HCC) Start: 09-19-2024 End: 09-19-2024 Refill Jose Clarke DO [facility] Start: 09-17-2024 End: 09-17-2024 Refill Jose Clarke DO [facility] Start: 09-13-2024 End: 09-13-2024 Orders Only Jose Clarke DO [facility] Start: 09-09-2024 End: 09-11-2024 Refill Jose Clarke DO Work Phone: [facility] Start: 07-12-2024 End: 07-12-2024 Refill Jose Clarke DO Work Phone: [facility] Start: 07-03-2024 End: 07-03-2024 Assay of hemosiderin, quant Jose Clarke DO Work Phone: [facility] Start: 07-03-2024 End: 07-03-2024 Patient encounter procedure Jose Clarke DO Work Phone: [facility] Comment on above: Encounter for subseq uent annual wellness visit (AWV) in Medicare patient (Primary Dx); Essential hypertension; Hypercholesterolemia with hypertriglyceridemia; 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; Type 2 diabetes mellitus with chronic kidney disease, without long-term current use of insulin, unspecified CKD stage (HCC); Routine general medical examination at health care facility Start: 07-03-2024 End: 07-03-2024 ambulatory [facility] Start: 07-03-2024 End: 07-03-2024 Encounter for general adult medical examination without abnormal findings [facility] Start: 06-17-2024 End: 06-18-2024 Refill Jose Clarke DO Work Phone: [facility] Start: 04-03-2024 Refill Jose dowlinga DO Work Phone: [facility] Start: 02-28-2024 Refill Jose dowlinga DO Work Phone: [facility] Start: 02-13-2024 Refill Jose dowlinga DO Work Phone: [facility] Start: 02-07-2024 Telephone encounter Jose Mccurdy darwin DO Work Phone: [facility] Comment on above: Orders (Ortho referr al) Start: 02-07-2024 End: 02-07-2024 Office outpatient visit 15 minutes Jose Clarke DO Work Phone: [facility] Comment on above: Type 2 diabetes yanely itus with chronic kidney disease, without long-term current use of insulin, unspecified CKD stage (HCC) (Primary Dx); Essential hypertension; Chronic left-sided lumbar radiculopathy; Skin lesion of hand; Hypercholesterolemia with hypertriglyceridemia Start: 12-21-2023 Refill Jose Liriano lla DO Work Phone: [facility] Start: 12-14-2023 Refill Jose Liriano lla DO Work Phone: [facility] Clinical Communication Start: 11-13-2023 Orders Only Jose Liriano lla DO Work Phone: [facility] Start: 11-08-2023 End: 11-08-2023 Office outpatient visit 25 minutes Jose Marcusa DO Work Phone: [facility] Comment on above: Type 2 diabetes yanely itus with chronic kidney disease, without long-term current use of insulin, unspecified CKD stage (HCC) (Primary Dx); Essential hypertension; Stage 3b chronic kidney disease (HCC); Hypercholesterolemia with hypertriglyceridemia; 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; Chronic left-sided lumbar radiculopathy; Lumbar degenerative disc disease Start: 10-21-2023 Transcribe Orders Radha Torres MD Work Phone: [facility] Comment on above: Chronic kidney disea se, stage 3a (HCC) (Primary Dx); Secondary hyperparathyroidism of renal origin (HCC) Start: 08-07-2023 Refill Jose Liriano lla DO Work Phone: [facility] Start: 06-22-2023 Orders Only Jose Liriano lla DO Work Phone: [facility] Start: 06-20-2023 Refill Jose Liriano lla DO Work Phone: [facility] Start: 06-19-2023 Orders Only Jose Liriano lla DO Work Phone: [facility] Start: 05-19-2023 Refill Jose Payton Heri dowlingevy DO Work Phone: [facility] Start: 02-16-2023 Orders Only Jose Payton Heri dowlingevy DO Work Phone: [facility] Start: 02-14-2023 End: 02-14-2023 Office outpatient visit 25 minutes Jose Clarke DO Work Phone: [facility] Comment on above: Acquired left foot d rop (Primary Dx); 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; Stage 3a chronic kidney disease (HCC); Essential hypertension; Type 2 diabetes mellitus with chronic kidney disease, without long-term current use of insulin, unspecified CKD stage (HCC); Chronic left-sided lumbar radiculopathy Start: 02-03-2023 End: 02-03-2023 Emergency department patient visit [facility]-Emergency Department Start: 12-06-2022 Refill Jose stern DO Work Phone: [facility] Start: 10-27-2022 Transcribe Orders Radha Torres MD Work Phone: [facility] Laboratory Comment on above: Chronic kidney disea se, stage 3a (HCC) (Primary Dx); Secondary hyperparathyroidism of renal origin (CMS/HCC) (HCC) Start: 09-01-2022 End: 09-13-2022 Evaluation and management of inpatient Dr. Jose Clarke Work Phone: [facility]-Transitional Care Unit Start: 09-01-2022 Non-patient / Non-visit Dr. Matias Clarke Work Phone: [facility] Start: 08-31-2022 Non-patient / Non-visit Dr. Matias Clarke Work Phone: [facility] Start: 08-30-2022 Non-patient / Non-visit Dr. Matias Clarke Work Phone: [facility] Start: 08-29-2022 Non-patient / Non-visit Dr. Matias Clarke Work Phone: [facility] Start: 08-28-2022 End: 09-01-2022 Evaluation and management of inpatient [facility]-Medical Surgical 3 Start: 03-12-2022 Non-patient / Non-visit Dr. Matias Clarke Work Phone: [facility] Start: 03-12-2022 End: 03-12-[address] Jose Clarke Work Phone: [facility]-Cardiovascul [facility] Services Start: 03-10-2022 End: 03-10-2022 Subsequent hospital visit by physician Jose Clarke DO Work Phone: [facility] Comment on above: Acute hip pain, left ; Acute left-sided low back pain with left-sided sciatica Start: 05-25-2021 End: 05-25-2021 Subsequent hospital visit by physician Radha Torres MD Work Phone: [facility] Laboratory Start: 04-23-2021 End: 04-23-2021 Emergency department patient visit Bucky Dunne Radha DO Work Phone: [facility] Comment on above: Pneumonia of right l ower lobe due to infectious organism (Primary Dx); Septicemia (HCC); Renal insufficiency; Type 2 diabetes mellitus with other specified complication, unspecified whether half-way insulin use (HCC) Start: 11-24-2020 End: 11-24-2020 Subsequent hospital visit by physician Radha Torres Work Phone: [facility] Start: 09-01-2020 End: 09-01-2020 Subsequent hospital visit by physician Pastor Vines Work Phone: [facility] Start: 05-20-2020 End: 05-20-2020 Subsequent hospital visit by physician Radha Torres Work Phone: [facility] Laboratory Start: 11-20-2019 End: 11-20-2019 Subsequent hospital visit by physician Radha Torres MD Work Phone: [facility] Start: 11-23-2018 End: 11-23-2018 Patient encounter procedure Eh Morton MD Work Phone: [facility] Work Phone: Start: 11-16-2018 Emergency department patient visit PROVIDER UNKNOWN [facility] Start: 05-10-2018 Evaluation and manag ement of inpatient Osorio Acharya Facility:[facility] Start: 05-02-2018 Patient encounter Osorio Acharya Fa cility:[facility] Start: 12-23-2017 Patient encounter procedure KELSIE RUIZ QUE [facility] Start: 12-22-2017 Patient encounter procedure KELSIE RUIZ QUE [facility] Procedures Date Procedure Procedure Detail Performing Clinician Start: 03-26-2025 Adult depression scr eening assessment Jose Clarke DO Work Phone: Start: 10-30-2024 Adult depression scr eening assessment Jose Clarke DO Work Phone: Start: 07-03-2024 Adult depression scr eening assessment Jose Clarke DO Work Phone: Start: 02-03-2023 Plain chest X-ray Start: 10-27-2022 Basic metabolic pane l calcium total Radha Torres MD Work Phone: Start: 08-30-[address] Jose Clarke Work Phone: Start: 08-29-2022 Plain X-ray of hip Dr. Jose Clarke Work Phone: Start: 08-29-2022 Primary uncemented hemiarthroplasty of hip Dr. Jose Clarke Work Phone: Start: 08-28-2022 Plain chest X-ray Dr. Vibha Clarke Work Phone: Start: 08-28-2022 Plain X-ray of femur Start: 08-28-2022 Pelvis X-ray Start: 06-17-2022 Lipid 1996 panel - S huong or Plasma Jose Clarke DO Work Phone: Start: 03-10-2022 Radex spine lumbosac ral minimum 4 views Jose Clarke DO Work Phone: Start: 05-25-2021 End: 05-25-2021 Renal function panel Radha Ulrich i, MD Work Phone: Start: 04-23-2021 COVID-19, RAPID Bucky Garcia DO Work Phone: Start: 04-23-2021 Urnls dip stick/tabl et rgnt auto w/o microscopy Bucky Garcia DO Work Phone: Start: 04-23-2021 Ct abdomen & pelvis w/o contrast material Bucky Garcia DO Work Phone: Start: 04-23-2021 Radiologic exam ches t 2 views Bucky Garcia DO Work Phone: Start: 04-23-2021 Comprehensive metabo lic panel Bucky Garcia DO Work Phone: Start: 04-23-2021 Ecg routine ecg w/le ast 12 lds w/i&r Bucky Garcia DO Work Phone: Start: 11-24-2020 Creatinine other source Ceasarprakash R Gail Work Phone: Start: 11-24-2020 Protein total xcpt refractometry urine Jayaprajigarsh R Gail Work Phone: Start: 11-24-2020 Basic metabolic pane l calcium total Jayaprakash R Gail Work Phone: Start: 09-01-2020 Assay of troponin quantitative Pastor Vines Work Phone: Start: 05-20-2020 Creatinine other source Jayaprakash R Gail Work Phone: Start: 05-20-2020 Protein total xcpt refractometry urine Greysonyaprakash R Gail Work Phone: Start: 05-20-2020 25 hydroxy includes fractions if performed Radha Torres Work Phone: Start: 05-20-2020 Assay of parathormone J serena Torres Work Phone: Start: 05-20-2020 Blood count complete automated Radha Torres Work Phone: Start: 05-20-2020 Renal function panel Greyson Torres Work Phone: Start: 11-20-2019 End: 11-20-2019 Renal function panel Radha Ulrich i, MD Work Phone: Start: 11-23-2018 End: 11-23-2018 Blood pressure outside of normal parameters - follow-up documented Eh Morton MD Work Phone: Start: 11-23-2018 End: 11-23-2018 BMI documented as above normal parameters - follow-up documented Eh Morton MD Work Phone: Start: 11-23-2018 End: 11-23-2018 Documentation of current medications Eh Morton MD Work Phone: Start: 11-23-2018 End: 11-23-2018 Pain assessment documented as negative - follow-up not required Eh Morton MD Work Phone: Start: 11-23-2018 End: 11-23-2018 Tobacco non-user Eh Morton MD Work Phone: Urine culture Dr. Jose erazo Work Phone: Viral antigen assay Dr. Evaristo Clarke Work Phone: Plan of Treatment Date Care Activity Detail Author Start: 11-16-2028 DTaP/Tdap/Td vaccine (2 - Td or Tdap) DTaP/Tdap/Td vaccine (2 - Td or Tdap) [facility] Start: 11-16-2028 DTaP/Tdap/Td vaccine (2 - Td) DTaP/Tdap/Td vaccine (2 - Td) ENEDELIAA Work Phone: Start: 11-16-2028 DTaP/Tdap/Td Vaccines (2 - Td or Tdap) DTaP/Tdap/Td Vaccines (2 - Td or Tdap) [facility] Start: 03-26-2026 Depression Screening Depression Screening [facility] Start: 10-30-2025 Depression Screening Depression Screening [facility] Start: 10-19-2025 Diabetes: Estimated Glomerular Filtration Rate for Kidney Health Diabetes: Estimated Glomerular Filtration Rate for Kidney Health [facility] Start: 07-30-2025 End: 07-30-2025 Patient encounter procedure 07/30/2025 10:20 AM EDT [facility] [address] [place] [address] Jose Clarke DO [address] [place] [address] [facility] Start: 07-09-2025 End: 07-09-2025 Patient encounter procedure [facility] Start: 07-03-2025 Depression Screening Depression Screening [facility] Start: 07-03-2025 Diabetes: Estimated Glomerular Filtration Rate for Kidney Health Diabetes: Estimated Glomerular Filtration Rate for Kidney Health [facility] Start: 06-24-2025 Influenza vaccination Influenza Vaccine (Season Ended) [facility] Start: 03-26-2025 End: 03-26-2026 CBC W Auto Differential panel - Blood CBC auto differential Lab Routine Type 2 diabetes mellitus with stage 3b chronic kidney disease, with long-term current use of insulin (HCC) Expected: 03/26/2025 (Approximate), Expires: 03/26/2026 [facility] Comment on above: Expected: 03/26/2025 (Approximate), Expi res: 03/26/2026 Start: 03-26-2025 End: 03-26-2026 Comprehensive metabolic 1998 panel - Serum or Plasma Comprehensive metabolic panel Lab Routine Type 2 diabetes mellitus with stage 3b chronic kidney disease, with long-term current use of insulin (HCC) Expected: 03/26/2025 (Approximate), Expires: 03/26/2026 [facility] Comment on above: Expected: 03/26/2025 (Approximate), Expi res: 03/26/2026 Start: 03-26-2025 End: 03-26-2026 Hemoglobin A1c measurement Hemoglobin A1c Lab Routine Type 2 diabetes mellitus with stage 3b chronic kidney disease, with long-term current use of insulin (HCC) Expected: 03/26/2025 (Approximate), Expires: 03/26/2026 [facility] Comment on above: Expected: 03/26/2025 (Approximate), Expi res: 03/26/2026 Start: 03-26-2025 End: 03-26-2026 Lipid 1996 panel - Serum or Plasma Lipid panel Lab Routine Type 2 diabetes mellitus with stage 3b chronic kidney disease, with long-term current use of insulin (HCC) Expected: 03/26/2025 (Approximate), Expires: 03/26/2026 [facility] Comment on above: Expected: 03/26/2025 (Approximate), Expi res: 03/26/2026 Start: 03-26-2025 End: 03-26-2026 Microalbumin/Creatinine panel in random Urine Microalbumin / creatinine, urine ratio Lab Routine Type 2 diabetes mellitus with stage 3b chronic kidney disease, with long-term current use of insulin (HCC) Expected: 03/26/2025 (Approximate), Expires: 03/26/2026 [facility] Work Phone: Comment on above: Expected: 03/26/2025 (Approximate), Expi res: 03/26/2026 Start: 03-26-2025 End: 03-26-2025 Patient encounter procedure 03/26/2025 9:40 AM EDT Office Visit [facility] [address] [place] [address] Jose Clarke DO [address] [place] [address] [facility] Start: 02-01-2025 End: 02-01-2025 Patient encounter procedure 02/01/2025 8:00 AM EDT Office Visit [facility] [address] [place] [address] Jose Clarke, DO [address] [place] [address] [facility] Start: 10-30-2024 End: 10-30-2025 Hemoglobin A1c measurement Hemoglobin A1c Lab Routine Chronic left-sided lumbar radiculopathy Expected: 10/30/2024 (Approximate), Expires: 10/30/2025 [facility] Work Phone: Comment on above: Expected: 10/30/2024 (Approximate), Expi res: 10/30/2025 Start: 10-30-2024 End: 10-30-2025 Lipid 1996 panel - Serum or Plasma Lipid panel Lab Routine Chronic left-sided lumbar radiculopathy Expected: 10/30/2024 (Approximate), Expires: 10/30/2025 [facility] Comment on above: Expected: 10/30/2024 (Approximate), Expi res: 10/30/2025 Start: 10-30-2024 End: 10-30-2024 Patient encounter procedure 10/30/2024 8:30 AM EST [facility] [address] [place] [address] Jose Clarke, [address] [place] [address] [facility] Start: 10-24-2024 Medicare Advantage Annual Wellness Visit Medicare Advantage Annual Wellness Visit [facility] Start: 07-03-2024 End: 07-03-2025 CBC W Auto Differential panel - Blood CBC auto differential Lab Routine Essential hypertension Expected: 07/03/2024 (Approximate), Expires: 07/03/2025 [facility] Work Phone: Comment on above: Expected: 07/03/2024 (Approximate), Expi res: 07/03/2025 Start: 07-03-2024 End: 07-03-2025 Comprehensive metabolic 1998 panel - Serum or Plasma Comprehensive metabolic panel Lab Routine Essential hypertension Expected: 07/03/2024 (Approximate), Expires: 07/03/2025 [facility] Comment on above: Expected: 07/03/2024 (Approximate), Expi res: 07/03/2025 Start: 07-03-2024 End: 07-03-2025 Lipid 1996 panel - Serum or Plasma Lipid panel Lab Routine Hypercholesterolemia with hypertriglyceridemia Expected: 07/03/2024 (Approximate), Expires: 07/03/2025 [facility] Comment on above: Expected: 07/03/2024 (Approximate), Expi res: 07/03/2025 Start: 07-03-2024 End: 07-03-2024 Patient encounter procedure 07/03/2024 8:30 AM EDT Office Visit [facility] [address] [place] [id number] Jose Clarke DO [address] [place] [id number] [facility] Start: 06-24-2024 COVID-19 Vaccine ( season) COVID-19 Vaccine ( season) [facility] Start: 06-24-2024 COVID-19 Vaccine ( season) COVID-19 Vaccine ( season) [facility] Start: 06-24-2024 Influenza vaccination Influenza Vaccine (#1) [facility] Start: 05-22-2024 End: 05-22-2024 Patient encounter procedure 05/22/2024 8:30 AM EDT Office Visit [facility] [address] [place] [address] Jose Clarke DO [address] [place] [id number] [facility] Start: 02-07-2024 End: 02-06-2025 Comprehensive metabolic 1997 panel - Serum or Plasma Comprehensive metabolic panel Lab Routine Type 2 diabetes mellitus with chronic kidney disease, without long-term current use of insulin, unspecified CKD stage (HCC) Expected: 02/07/2024 (Approximate), Expires: 02/06/2025 [facility] [employer] [facility] Work Phone: Comment on above: Expected: 02/07/2024 (Approximate), Expi res: 02/06/2025 Start: 02-07-2024 End: 02-06-2025 Hemoglobin A1c measurement Hemoglobin A1c Lab Routine Type 2 diabetes mellitus with chronic kidney disease, without long-term current use of insulin, unspecified CKD stage (HCC) Expected: 02/07/2024 (Approximate), Expires: 02/06/2025 [facility] Comment on above: Expected: 02/07/2024 (Approximate), Expi res: 02/06/2025 Start: 02-07-2024 End: 02-06-2025 Lipid 1996 panel - Serum or Plasma Lipid panel Lab Routine Hypercholesterolemia with hypertriglyceridemia Expected: 02/07/2024 (Approximate), Expires: 02/06/2025 [facility] Comment on above: Expected: 02/07/2024 (Approximate), Expi res: 02/06/2025 Start: 02-07-2024 End: 02-07-2024 Patient encounter procedure 02/07/2024 11:00 AM EDT Office Visit [facility] [address] [place] [address] Jose Clarke, [address] [place] [address] [facility] Start: 11-26-2023 COVID-19 Vaccine () COVID-19 Vaccine () [facility] Start: 11-08-2023 End: 11-08-2024 Basic metabolic 1998 panel - Serum or Plasma Basic metabolic panel Lab Routine Type 2 diabetes mellitus with chronic kidney disease, without long-term current use of insulin, unspecified CKD stage (HCC) Expected: 11/08/2023 (Approximate), Expires: 11/08/[address] [employer] Work Phone: Comment on above: Expected: 11/08/2023 (Approximate), Expi res: 11/08/2024 Start: 11-08-2023 End: 11-08-2024 Hemoglobin A1c measurement Hemoglobin A1c Lab Routine Type 2 diabetes mellitus with chronic kidney disease, without long-term current use of insulin, unspecified CKD stage (HCC) Expected: 11/08/2023 (Approximate), Expires: 11/08/2024 [facility] [employer] Comment on above: Expected: 11/08/2023 (Approximate), Expi res: 11/08/2024 Start: 11-08-2023 End: 11-08-2024 Lipid 1996 panel - Serum or Plasma Lipid panel Lab Routine Type 2 diabetes mellitus with chronic kidney disease, without long-term current use of insulin, unspecified CKD stage (HCC) Expected: 11/08/2023 (Approximate), Expires: 11/08/2024 [facility] [employer] Comment on above: Expected: 11/08/2023 (Approximate), Expi res: 11/08/2024 Start: 10-24-2023 Medicare Advantage Annual Wellness Visit Medicare Advantage Annual Wellness Visit [facility] Start: 10-06-2023 End: 10-06-2023 Patient encounter procedure [facility] Start: 06-24-2023 Influenza vaccination Influenza Vaccine (#1) [facility] Start: 06-17-2023 Lipid panel Lipid Panel [facility] Start: 06-14-2023 End: 06-14-2023 Patient encounter procedure [facility] Start: 05-16-2023 Hemoglobin A1c measurement Diabetes: Hemoglobin A1C [facility] Start: 03-30-2023 Pneumococcal Vaccine: 65+ Years (2 - PPSV23 if available, else PCV20) Pneumococcal Vaccine: 65+ Years (2 - PPSV23 if available, else PCV20) [facility] [employer] Start: 02-14-2023 End: 02-15-2024 Basic metabolic 1998 panel - Serum or Plasma Basic metabolic panel Lab Routine Type 2 diabetes mellitus with chronic kidney disease, without long-term current use of insulin, unspecified CKD stage (HCC) Expected: 02/14/2023 (Approximate), Expires: 02/15/2024 [facility] Work Phone: Comment on above: Expected: 02/14/2023 (Approximate), Expi res: 02/15/2024 Start: 02-14-2023 End: 02-15-2024 Hemoglobin A1c/Hemoglobin.total in Blood Hemoglobin A1c Lab Routine Type 2 diabetes mellitus with chronic kidney disease, without long-term current use of insulin, unspecified CKD stage (HCC) Expected: 02/14/2023 (Approximate), Expires: 02/15/2024 [facility] Comment on above: Expected: 02/14/2023 (Approximate), Expi res: 02/15/2024 Start: 02-03-2023 [facility] Start: 12-28-2022 Hemoglobin A1c measurement Diabetes: Hemoglobin A1C [facility] Start: 12-18-2022 COVID-19 Vaccine (6 - Moderna series) COVID-19 Vaccine (6 - Moderna series) [facility] Start: 10-07-2022 Blood chemistry [facility] Work Phone: Start: 09-30-2022 Blood chemistry [facility] Work Phone: Start: 09-23-2022 Blood chemistry [facility] Work Phone: Start: 09-16-2022 Blood chemistry [facility] Work Phone: Start: 09-13-2022 Development of care plan [facility] Work Phone: Start: 09-13-2022 Patient discharge [facility] Work Phone: Start: 09-09-2022 End: 09-10-2022 [facility] Work Phone: Start: 09-08-2022 Referral to service [facility] Work Phone: Start: 09-06-2022 [facility] Work Phone: Start: 09-02-2022 Development of care plan [facility] Work Phone: Start: 09-02-2022 Developing a treatment plan [facility] Work Phone: Start: 09-02-2022 Application of device [facility] Work Phone: Start: 09-01-2022 Verification routine [facility] Work Phone: Start: 09-01-2022 Following clinical pathway protocol [facility] Work Phone: Start: 09-01-2022 Wound care [facility] Work Phone: Start: 09-01-2022 Admission procedure [facility] Work Phone: Start: 09-01-2022 Measuring intake and output [facility] Work Phone: Start: 09-01-2022 Patient referral to dietitian [facility] Work Phone: Start: 09-01-2022 Referral to occupational therapist [facility] Work Phone: Start: 09-01-2022 Referral to service [facility] Work Phone: Start: 09-01-2022 Vital signs measurements [facility] Work Phone: Start: 09-01-2022 End: 09-01-2022 [facility] Work Phone: Start: 09-01-2022 Patient discharge [facility] Work Phone: Start: 08-29-2022 Consultation [facility] Work Phone: Start: 08-29-2022 Measuring intake and output [facility] Work Phone: Start: 08-29-2022 Measuring intake and output [facility] Work Phone: Start: 08-29-2022 End: 08-29-2022 [facility] Work Phone: Start: 08-29-2022 Ambulation therapy management [facility] Work Phone: Start: 08-29-2022 Application of device [facility] Work Phone: Start: 08-29-2022 Exercises [facility] Work Phone: Start: 08-29-2022 Following clinical pathway protocol [facility] Work Phone: Start: 08-29-2022 Introduction of urinary catheter [facility] Work Phone: Start: 08-29-2022 Neurovascular assessment [facility] Work Phone: Start: 08-29-2022 Patient education [facility] Work Phone: Start: 08-29-2022 Provision of activity privileges [facility] Work Phone: Start: 08-29-2022 Referral to occupational therapist [facility] Work Phone: Start: 08-29-2022 Referral to service [facility] Work Phone: Start: 08-29-2022 Vital signs measurements [facility] Work Phone: Start: 08-29-2022 Wound care [facility] Work Phone: Start: 08-29-2022 Measuring intake and output [facility] Work Phone: Start: 08-29-2022 Measuring intake and output [facility] Work Phone: Start: 08-28-2022 Following clinical pathway protocol [facility] Work Phone: Start: 08-28-2022 Incentive spirometry [facility] Work Phone: Start: 08-28-2022 Application of ice collar, cap or bag [facility] Work Phone: Start: 08-28-2022 Assessment of risk of venous thromboembolism [facility] Work Phone: Start: 08-28-2022 Bedrest [facility] Work Phone: Start: 08-28-2022 Care regimes management [facility] Work Phone: Start: 08-28-2022 Consultation [facility] Work Phone: Start: 08-28-2022 Fall prevention [facility] Work Phone: Start: 08-28-2022 Inhalation therapy procedure [facility] Work Phone: Start: 08-28-2022 Insertion of catheter into peripheral vein [facility] Work Phone: Start: 08-28-2022 Neurovascular assessment [facility] Work Phone: Start: 08-28-2022 Oxygen therapy [facility] Work Phone: Start: 08-28-2022 Providing care according to standard [facility] Work Phone: Start: 08-28-2022 Referral to occupational therapist [facility] Work Phone: Start: 08-28-2022 Referral to service [facility] Work Phone: Start: 08-28-2022 Skin care [facility] Work Phone: Start: 08-28-2022 [facility] Work Phone: Start: 08-28-2022 Measuring intake and output [facility] Work Phone: Start: 08-28-2022 Plain chest X-ray Chest 1 View (Portable) [facility] Work Phone: Start: 08-28-2022 XR Chest Single view [facility] Work Phone: Start: 08-28-2022 End: 08-29-2022 [facility] Work Phone: Start: 08-28-2022 Verification routine [facility] Work Phone: Start: 08-28-2022 Admission procedure [facility] Work Phone: Start: 08-25-2022 Lipid panel Lipids [facility] Start: 08-24-2022 Diabetic foot examination Diabetic foot exam [facility] Start: 05-15-2022 Diabetic retinal exam Diabetic retinal exam [facility] Start: 04-23-2022 Creatinine measurement Creatinine monitoring [facility] Work Phone: Start: 04-23-2022 Potassium monitoring Potassium monitoring [facility] Work Phone: Start: 04-22-2022 End: 04-22-2022 Patient encounter procedure 04/22/2022 Office Visit [facility] Jose Clarke Tata, DO [address] [place] [address] [facility] Start: 03-11-2022 End: 03-11-2022 Patient encounter procedure 03/11/2022 Office Visit [facility] Jose Clarke Tata, DO [address] [place] [address] [facility] Start: 02-22-2022 Hemoglobin A1c measurement A1C test (Diabetic or Prediabetic) [facility] Start: 02-06-2022 Depression Screen Depression Screen [facility] Start: 02-06-2022 Lipid panel Lipid screen [facility] Work Phone: Start: 10-09-2021 Annual Wellness Visit (AWV) Annual Wellness Visit (AWV) [facility] Start: 08-21-2021 Creatinine measurement Creatinine monitoring [facility] [place] Start: 08-21-2021 Potassium monitoring Potassium monitoring [facility] [place] [place] Start: 08-18-2021 End: 08-18-2021 Patient encounter procedure 08/18/2021 Office Visit [facility] Jose Chavis, DO [address] [place] [address] [phone] [facility] Start: 08-07-2021 End: 08-07-2021 Patient encounter procedure 08/07/2021 Office Visit [facility] Jose Chavis DO [address] [place], [place] [id number] [facility] Start: 06-24-2021 Influenza vaccination Flu vaccine (#1) [facility] Work Phone: Start: 04-17-2021 Creatinine measurement Creatinine monitoring [facility] [place] Start: 04-17-2021 Potassium monitoring Potassium monitoring [facility] [place] [place] Start: 02-06-2021 End: 02-06-2021 Office Visit 02/06/2021 Office Visit Family Medicine Jose Clarke, DO [address] [place] [address] [phone] [facility] Start: 01-02-2021 Lipid panel Lipid screen [employer] [place] Start: 10-16-2020 Shingles Vaccine (2 of 2) Shingles Vaccine (2 of 2) [employer] [place] Start: 10-08-2020 End: 10-08-2020 Office Visit 10/08/2020 Office Visit Family Medicine Jose Clarke, DO [address] [place] [address] [phone] [facility] Start: 09-12-2020 Creatinine monitoring Creatinine monitoring [facility] Work Phone: Start: 09-12-2020 Potassium monitoring Potassium monitoring [facility] Work Phone: Start: 08-15-2020 End: 08-15-2020 Office Visit 08/15/2020 Office Visit Family Jose Mejia, DO [address] [place] [address] [phone] [facility] Start: 06-24-2020 Influenza vaccination Flu vaccine (#1) [employer] [place] Start: 01-06-2020 Lipid screen Lipid screen [facility] Work Phone: Start: 12-13-2019 End: 12-13-2019 Patient encounter procedure 12/13/2019 Office Visit [facility] Jose Mejia DO [address] [place] [address] [phone] [facility] Start: 11-23-2019 Diabetes: Urine Albumin-Creatinine Ratio for Kidney Health Diabetes: Urine Albumin-Creatinine Ratio for Kidney Health [facility] Start: 04-12-2019 Annual Wellness Visit (AWV) Annual Wellness Visit (AWV) [facility] Work Phone: Start: 12-21-2018 End: 12-21-2018 Appointment Appointment [facility] Work Phone: Start: 11-23-2018 End: 11-23-2018 Appointment Appointment [facility] Work Phone: Start: 2016 RSV Immunization for Adults (1 - 1-dose 75+ series) RSV Immunization for Adults (1 - 1-dose 75+ series) [facility] Start: 2001 Hepatitis B Vaccines (1 of 3 - Risk 3-dose series) Hepatitis B Vaccines (1 of 3 - Risk 3-dose series) [facility] Start: 2001 RSV Immunization aged 60 or older (1 - 1-dose 60+ series) RSV Immunization aged 60 or older (1 - 1-dose 60+ series) [facility] Start: 1991 Shingles Vaccine (1 of 2) Shingles Vaccine (1 of 2) [facility] Work Phone: Start: 1960 Urine screening for protein Diabetes: Urine Protein Screening [facility] Start: 1957 COVID-19 Vaccine (1 of 2) COVID-19 Vaccine (1 of 2) [employer] [place] Start: 1953 Depression Screening Depression Screening [facility] Start: 1951 Diabetic foot examination Diabetes: Foot Exam [facility] Start: 1951 Glaucoma screening Diabetes: Retinopathy Screening [facility] Start: 1951 Preventive dental service Diabetes: Dental Exam [facility] Start: 1941 Hepatitis B Vaccines (1 of 3 - 3-dose series) Hepatitis B Vaccines (1 of 3 - 3-dose series) [facility] Start: 1941 Hepatitis C screening Hepatitis C screen [employer] [place] Start: 1941 Medicare Advantage Annual Wellness Visit (AWV) Medicare Advantage Annual Wellness Visit (AWV) [facility] End: 04-23-2021 Culture, Blood 2 Culture, Blood 2 Microbiology STAT One Time for 1 Occurrences starting 04/23/2021 until 04/23/2021 [facility] Work Phone: Comment on above: One Time for 1 Occurrences starting 10/2020 until 04/23/2021 Culture, Blood 2 Culture, Blood 2 Microbiology STAT 04/23/2021 9:34 AM EDT [employer] Work Phone: EKG 12 Lead - Chest Pain EKG 12 Lead - Chest Pain ECG STAT 04/23/2021 9:23 AM EDT [employer] Work Phone: End: 04-23-2021 Microscopic examination of blood, culture Culture, Blood Microbiology STAT One Time for 1 Occurrences starting 04/23/2021 until 04/23/2021 [employer] Work Phone: Comment on above: One Time for 1 Occurrences starting 10/2020 until 04/23/2021 Microscopic examinat ion of blood, culture Culture, Blood Microbiology STAT 04/23/2021 9:34 AM EDT [facility] Work Phone: OUTSIDE PROCEDURE SCAN OUTSIDE P ROCEDURE SCAN Procedures Ordered: 10/19/2024 [facility] Comment on above: Ordered: 10/19/2024 Patient Education [facility] Work Phone: Patient referral [facility] Work Phone: Immunizations Immunization Date Immunization Notes Care Provider [facility] 07-26-2023 COVID-19, mRNA, LNP- S, PF, don-sucrose, 30 mcg/0.3 mL Jose Clarke DO Work Phone: [facility] 07-26-2023 Influenza, Seasonal, Quadrivalent, Adjuvanted Jose Clarke DO Work Phone: [facility] 07-26-2023 influenza virus vaccine, unspecified formulation Jose Clarke DO Work Phone: [facility] 08-17-2022 Covid Pfizer Bivalen t Booster Dr. Jose Clarke Work Phone: [facility] 08-11-2022 influenza, high dose seasonal, preservative-free Dr. Jose Clarke Work Phone: [facility] 08-11-2022 Influenza, High-dose Seasonal, Quadrivalent, Preservative Free Jose Clarke DO Work Phone: [facility] [employer] 08-11-2022 influenza virus vaccine, unspecified formulation Jose Clarke DO Work Phone: [facility] [employer] 03-30-2022 Covid (Pfizer) Dr. Jose mariee Work Phone: [facility] 03-30-2022 pneumococcal conjuga te vaccine, [address] Jose Clarke Work Phone: [facility] [employer] 08-21-2021 COVID-19, Pfizer Pur ple top, DILUTE for use, 12+ yrs, 30mcg/0.3mL dose Jose Clarke DO [facility] Phone[facility] Work Phone: 07-30-2021 Influenza, High-dose , Quadv, 65 yrs +, IM (Fluzone) Jose Clarke DO Work Phone: [facility] Work Phone: 12-31-2020 COVID-19, Moderna, Primary or Immunocompromised, PF, 100mcg/0.5mL Jose Clarke DO Work Phone: [facility] Work Phone: 12-04-2020 COVID-19, Moderna, Primary or Immunocompromised, PF, 100mcg/0.5mL Jose Clarke DO Work Phone: [facility] Work Phone: 10-08-2020 zoster vaccine recombinant Jose Clarke DO Work Phone: [employer] Work Phone: 08-21-2020 zoster vaccine recombinant Jose Clarke DO Work Phone: [facility] Work Phone: 08-06-[address] Jose Clarke Work Phone: [facility] 08-06-2020 influenza virus vaccine, unspecified formulation Jose Evy DO Work Phone: [facility] 08-06-2020 influenza, seasonal, injectable Jose Clarke DO Work Phone: [facility] 07-29-2020 Influenza, High-dose , Quadv, 65 yrs +, IM (Fluzone) Pastor Vines [facility] 08-10-2019 influenza, high dose seasonal, preservative-free Jose Clarke DO Work Phone: [facility] Work Phone: 11-16-2018 tetanus toxoid, redu shey diphtheria toxoid, and acellular pertussis vaccine, adsorbed Radha Torres MD Work Phone: [facility] 08-17-2018 influenza, high dose seasonal, preservative-free Radha Torres MD Work Phone: [facility] 07-28-2017 influenza, injectabl e, quadrivalent, contains preservative Radha Torres MD Work Phone: [facility] 08-13-2016 influenza, injectabl e, quadrivalent, contains preservative Radha Torres MD Work Phone: [facility] 08-26-2015 influenza, high dose seasonal, preservative-free Jose Clarke DO Work Phone: [facility] Work Phone: 02-16-2015 pneumococcal conjuga te vaccine, 13 valent Radha Torres MD Work Phone: [facility] Work Phone: 02-13-2015 pneumococcal conjuga te vaccine, [address] Jose Clarke Work Phone: [facility] 08-26-2014 influenza virus vaccine, unspecified formulation Radha Torres MD Work Phone: [facility] Work Phone: 08-26-2014 influenza virus vaccine, whole virus Jose Clarke DO Work Phone: [facility] Work Phone: 10-30-2008 pneumococcal Conjuga te, unspecified formulation Jose Clarke DO Work Phone: [facility] Work Phone: 10-30-2008 pneumococcal polysaccharide vaccine, 23 valmichelle Torres MD Work Phone: [facility] 10-30-2008 pneumococcal vaccine , unspecified formulation Dr. Jose Clarke Work Phone: [facility] No information available. Arlene Neely LPN [facility] Work Phone: Payers Date Payer Category Payer Self-pay [id number] 2023 Medicare HMO UHC AARP MEDICAR E ADVANTAGE LIFE1 [id number] 2022 Medicare [id number] 2019 Medicare UHC MEDICARE UHC MEDICARE COMPLETE [id number] 2019-Present [id number] 2019 Medicare [id number] 2016 Medicare [id number] 2014 Medicare SUM[employer]ARE-MEDICA RE ADVANTAGE SUM[employer]-MEDICARE ADVANTAGE xxxxxxxxxxx 2014-Present [phone] [address] [place] [address] xxxxxxxxxxx [id number] 1941 Unknown [id number] 1941 Unknown [id number] 1941 Unknown [id number] Unknown Unknown [id number] Unknown [id number] Unknown [id number] Social History Date Type Detail Facility Start: 05-12-2015 End: 04-17-2020 Tobacco smoking status NHIS Never smoker [facility] Start: 05-12-2015 End: 04-17-2020 Tobacco use and exposure Never used [employer] [place] Start: 04-17-2020 End: 03-26-2025 Alcohol intake Current non-drinker of alcohol (finding) [facility] Work Phone: Start: 03-03-2020 End: 05-06-2021 History SDOH Alcohol Frequency 1 [employer] [place] Start: 05-23-2019 End: 05-06-2021 History SDOH Social Connections Phone 5 [employer] [place] Start: 05-23-2019 History SDOH Stress 3 [facility] Work Phone: Start: 05-23-2019 History SDOH IPV Fear 2 [place] Start: 1940 Sex Assigned At Not on file [facility] Work Phone: Start: 04-23-2021 End: 07-03-2024 Alcohol intake [facility] Work Phone: Start: 10-17-2022 End: 06-14-2023 Exposure to SARS-CoV-2 (event) Not sure [facility] Start: 04-23-2021 End: 02-03-2023 Tobacco smoking status NHIS Unknown if ever smoked [facility] Start: 06-13-[address] [facility] Start: 06-13-[address] [facility] Start: 07-31-[address] [facility] Start: 1940 Sex Assigned At Male [facility] Start: 02-14-2023 End: 07-03-2024 Tobacco use panel [facility] How often do you nee d to have someone help you when you read instructions, pamphlets, or other written material from your doctor or pharmacy [SILS] Never [facility] Has the [employer], or water [address] threatened to shut off services in your home in past 12Mo No [facility] Are you now , , , , never or living with a partner? [facility] How often to you hav e a drink containing alcohol? Never [facility] How hard is it for y ou to pay for the very basics like food, housing, medical care, and heating Not very hard [facility] Do you feel stress - tense, restless, nervous, or anxious, or unable to sleep at night because your mind is troubled all the time - these days [OSQ] Not at all [facility] (I/We) worried wheth er (my/our) food would run out before (I/we) got money to buy more. Never true [facility] Start: 05-24-2022 Sex Male (finding) [facility] NEGATED: Highlighted rowStart: 11-23-2018 End: 11-23-2018 Alcohol use ETOH USE No [facility] Work Phone: NEGATED: Highlighted rowStart: 11-23-2018 End: 11-23-2018 Details of drug misuse behavior DRUG USE No [facility] Work Phone: NEGATED: Highlighted rowStart: 11-23-2018 End: 11-23-2018 Assertion Never smoker [facility] Work Phone: Medical Equipment Procedure Code Equipment Code Equipment Origin al Text Equipment Identifier Dates Primary uncemented hemiarthroplasty of hip KIT,FEMORAL BONE CEMENT PREP FDA Start: 08-29-2022 Primary uncemented hemiarthroplasty of hip ([id number]) Uncoated hip femur prosthesis, one-piece ()[id number] FDA Start: 08-29-2022 Primary uncemented hemiarthroplasty of hip ([id number]) Orthopaedic cement spacer ()[id number] FDA Start: 08-29-2022 Primary uncemented hemiarthroplasty of hip ([id number]) Coated hip femur prosthesis, modular ()[id number] FDA Start: 08-29-2022 Primary uncemented hemiarthroplasty of hip ([id number]) Uncoated hip femur prosthesis, one-piece ()[id number] FDA Start: 08-29-2022 Primary uncemented hemiarthroplasty of hip Orthopaedic cement, non-antimicrobial ()[id number] FDA Start: 08-29-2022 Primary uncemented hemiarthroplasty of hip KIT,FEMORAL BONE CEMENT PREP FDA Start: 08-29-2022 [id number] Start: 09-12-2019 1 each by Does n ot apply route 2 times daily [id number] Start: 04-17-2020 Tests bid [id number] Start: 10-31-2018 1 each by Does n ot apply route 2 times daily [id number] Start: 12-24-2020 1 each by Does n ot apply route 2 times daily [id number] Start: 10-22-2019 E11.9 Test 2 fabio es a day & as needed for symptoms of irregular blood glucose. Dispense sufficient amount for indicated testing frequency plus additional to accommodate PRN testing needs. [id number] Start: 12-22-2021 E11.9 Test 2 fabio es a day & as needed for symptoms of irregular blood glucose. Dispense sufficient amount for indicated testing frequency plus additional to accommodate PRN testing needs. [id number] Start: 12-22-2021 1 each. [id number] Start: 12-24-2020 1 each by Other route 2 times daily. [id number] Start: 02-13-2024 End: 07-12-2024 1 each by Other route 2 times daily. [id number] Start: 07-12-2024 1 each by Other route 2 times daily. Use as instructed [id number] Start: 09-17-2024 E11.9 Use to inject 1-4 times daily as directed. [id number] Start: 11-08-2024 End: 11-08-2025 Goals Date Patient Goal Desired Activity /State Comment on above: Pt has no goals at t his time. Formatting of this n ote might be different from the original. Pt has no goals at this time. Functional Status Date Assessment Result Facility 03-26-2025 Patient Health Quest ionnaire 2 item (PHQ-2) [Reported] [facility] 09-13-2022 Functional status Ambulates;Up ad cammie [facility] Work Phone: 09-01-[address] [facility] Work Phone: Mental Status Date Assessment Result Facility 02-03-2023 Cognitive function Level Of Cons ciousness Awake;Alert;Appropriate [facility] Work Phone: 09-13-2022 Cognitive function Touch/Shaking [facility] Work Phone: 09-11-2022 Cognitive function Appropriate;Cooperativ e [facility] Work Phone: 09-01-2022 Cognitive function Voice/Name [facility] Work Phone: Clinical Notes 09-13-2022 to 03-26-2025 Jose Clarke DO - 03/26/2025 9:40 AM EDTTelephone Encounter - Denisse Sellers MA - 02/12/2025 8:13 AM EDTTelephone Encounter - Denisse Sellers MA - 02/12/2025 8:13 AM EDT Note Date & Type Note Facility 03-26-2025 History of Presen t illness Narrative Images from the original note were not included. [facility] - [address] [facility] [id number] Visit type: Established Patient Reason for Visit: Follow-up (Med check) Assessment / Plan: Brian was seen today for follow-up. Diagnoses and all orders for this visit: Type 2 diabetes mellitus with stage 3b chronic kidney disease, with long-term current use of insulin (HCC) (Primary) Comments: Stable, continue Lantus 10 units each day with glimepiride, Orders: - Microalbumin / creatinine, urine ratio; Future - CBC auto differential; Future - Comprehensive metabolic panel; Future - Hemoglobin A1c; Future - Lipid panel; Future - Microalbumin / creatinine, urine ratio - CBC auto differential - Comprehensive metabolic panel - Hemoglobin A1c - Lipid panel 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 Essential hypertension Comments: Stable, continue chlorthalidone, amlodipine, and hydralazine and lisinopril Hypercholesterolemia with hypertriglyceridemia Comments: Stable, continue Lipitor and Zetia Balanitis Comments: New onset, Loprox Stage 3b chronic kidney disease (HCC) Comments: Stable, continue all meds and no NSAIDs. Follow-up with nephrology Other orders - ciclopirox (Loprox) 0.77 % cream; Apply topically 2 times daily. Subjective: Patient ID: Brian Joshi is a 85 y.o. male. HPI type II diabetic on insulin with history of renal failure coronary disease and hypertension presents for checkup. Glucose levels are improved. On 10 units of insulin daily as well as glimepiride. No hypoglycemic episodes. No recent change in vision or skin. Review of Systems only new concern is some red skin changes of the shaft of his penis. Denies recent earache sore throat or cough. No exertional chest pain or dyspnea. Denies PND orthopnea claudication or edema. No use of nitro. No recent heartburn or abdominal pain. Bowels are regular. No melena or blood. No dysuria. History of chronic left foot drop that is actually improving. Able to do some golfing and yard work without difficulty. Allergies[1] Current Medications[2] Problem List[3] Social History Tobacco Use Smoking status: Never Smokeless tobacco: Never Substance Use Topics Alcohol use: No Alcohol/week: 0.0 standard drinks of alcohol Surgical History[4] Family History[5] Objective: BP 121/55 (BP Location: Right arm, Patient Position: Sitting, BP Cuff Size: Large adult) Pulse 76 Temp 37.1 C (98.7 F) (Temporal) Ht 6' (1.829 m) Wt 178 lb (80.7 kg) SpO2 98% BMI 24.14 kg/m Physical Exam The physical exam is generally normal. Patient appears well, alert and oriented x 3, pleasant, cooperative. Vitals are as noted. Neck supple, no abnormal adenopathy, thyroid lesions or masses.. No carotid bruits. lungs are clear to auscultation. Heart is regular, without murmurs, gallops or ectopy. Abdomen is soft, non tender, without masses, hepatosplenomegaly, or bruits. Normal BS evident. Extremities are normal without edema. Peripheral pulses are fair. No worrisome skin lesions. Left foot eversion and dorsiflexion is improved. Mild balanitis of his penis. Could not retract the foreskin. No worrisome skin lesions. [1] No Known Allergies [2] Current Outpatient Medications: amLODIPine (Norvasc) 10 MG tablet, TAKE 1 TABLET BY MOUTH DAILY, Disp: 100 tablet, Rfl: 2 aspirin 81 MG EC tablet, Take 1 tablet (81 mg) by mouth daily., Disp: , Rfl: atorvastatin (Lipitor) 80 MG tablet, Change to each AM after Breakfast, Disp: 100 tablet, Rfl: 2 chlorthalidone (Hygroton) 25 MG tablet, Change to one q AM, Disp: 100 tablet, Rfl: 2 Continuous Glucose Radio Equipment Repairer (FreeStyle Jose 3 [place]) device, 1 each 2 times daily as needed (check glucose levels). E11.9, Disp: 1 each, Rfl: 0 Continuous Glucose Sensor (FreeStyle Jose 3 Sensor) mis, 1 each every 14 (fourteen) days. E11.9, Disp: 2 each, Rfl: 11 ezetimibe (Zetia) 10 MG tablet, TAKE 1 TABLET BY MOUTH DAILY, Disp: 100 tablet, Rfl: 2 glimepiride (Amaryl) 1 MG tablet, Decrease to 1 mg every morning only, Disp: 90 tablet, Rfl: 1 hydrALAZINE (Apresoline) 25 MG tablet, TAKE 1 TABLET BY MOUTH 3 TIMES DAILY, Disp: 240 tablet, Rfl: 3 insulin glargine (Lantus SoloStar) 100 UNIT/ML pen, Decrease to 10 units subcutaneous each day, Disp: 3 mL, Rfl: 3 lisinopril 40 MG tablet, TAKE 1 TABLET BY MOUTH DAILY, Disp: 100 tablet, Rfl: 2 Melatonin 10 MG capsule, Take 10 mg by mouth Nightly., Disp: , Rfl: ciclopirox (Loprox) 0.77 % cream, Apply topically 2 times daily., Disp: 30 g, Rfl: 1 Glucose Blood (Blood Glucose Test) strip, E11.9 Test 2 times a day & as needed for symptoms of irregular blood glucose. Dispense sufficient amount for indicated testing frequency plus additional to accommodate PRN testing needs., Disp: , Rfl: glucose blood (FREESTYLE LITE) test strip, 1 each., Disp: , Rfl: glucose blood test strip, 1 each by Other route 2 times daily. Use as instructed, Disp: 100 each, Rfl: 12 insulin pen needle 31G X 8 mm misc, E11.9 Use to inject 1-4 times daily as directed., Disp: 100 each, Rfl: 11 Lancets, 1 each by Other route 2 times daily., Disp: 100 each, Rfl: 3 nitroglycerin (Nitrostat) 0.3 MG SL tablet, Place 0.3 mg under the tongue., Disp: , Rfl: [3] Patient Active Problem List Diagnosis Essential hypertension Stage 3b chronic kidney disease (HCC) CAD (coronary artery disease) Eczema Benign prostatic hyperplasia Hypercholesterolemia with hypertriglyceridemia Family history of colon cancer ED (erectile dysfunction) Type 2 diabetes mellitus with diabetic chronic kidney disease (HCC) Family history of prostate cancer Pacemaker Wears hearing aid in right ear Hx of fracture of left hip Chronic left-sided lumbar radiculopathy Left foot drop [4] Past Surgical History: Procedure Laterality Date CARDIAC PACEMAKER PLACEMENT 12/2017 [facility] / Black CATARACT EXTRACTION Bilateral COLONOSCOPY 2004 med COLONOSCOPY 2014 [facility]- [facility] re[facility] CORONARY ANGIOPLASTY WITH STENT PLACEMENT 03/2010 LAD coronary stent CYSTOSCOPY 08/2022 Dr. Costa, [place] HAND CONTRACTURE RELEASE Right 08/2022 Dr. Forde PARTIAL HIP ARTHROPLASTY Left 08/2022 Dr. Forde TRANSURETHRAL RESECTION OF PROSTATE 07/2020 Dr Costa [5] Family History Problem Relation Name Age of Onset Colon cancer Mother age 82 Coronary artery disease Father [place], age 57 No Known Problems Sister Diabetes Sister Hypertension Brother Arthur Prostate cancer Brother Arthur 74 alive age 80 No Known Problems Brother Ramon in ECF, alive age 88 Prostate cancer Brother pastor pedraza 70 Dementia Brother pastor pedraza in ECF age 93 documented in this encounter [facility] 02-12-2025 Telephone encount er Note Recent Visits Date Type Provider Dept 12/21/24 Office Visit Jose Clarke DO [facility] 10/30/24 Office Visit Jose Clarke DO [facility] 07/03/24 Office Visit Jose Clarke DO [facility] Showing recent visits within past 365 days and meeting all other requirements Future Appointments Date Type Provider Dept 03/26/25 Appointment Jose Clarke DO [facility] Showing future appointments within next 90 days and meeting all other requirements Requested Prescriptions Pending Prescriptions Disp Refills atorvastatin (Lipitor) 80 MG tablet 100 tablet 2 Sig: Change to each AM after Breakfast chlorthalidone (Hygroton) 25 MG tablet 100 tablet 2 Sig: Change to one q AM Provider: Jose Clarke DO Verified pharmacy: yes Verified day(s) supplied: yes Verified refill(s) needed (previous prescription showing no refills in chart): Yes Have you received any controlled medications from any other provider? N/A Overdue for visit: No If yes - patient scheduled? N/A Most recent labs completed in chart? N/A None [facility] 02-12-2025 Miscellaneous Notes Formattin g of this note is different from the original. Recent Visits Date Type Provider Dept 12/21/24 Office Visit Jose Clarke DO [facility] 10/30/24 Office Visit Jose Clarke DO [facility] 07/03/24 Office Visit Jose Clarke DO [facility] Showing recent visits within past 365 days and meeting all other requirements Future Appointments Date Type Provider Dept 03/26/25 Appointment Jose Clarke DO [facility] Showing future appointments within next 90 days and meeting all other requirements Requested Prescriptions Pending Prescriptions Disp Refills atorvastatin (Lipitor) 80 MG tablet 100 tablet 2 Sig: Change to each AM after Breakfast chlorthalidone (Hygroton) 25 MG tablet 100 tablet 2 Sig: Change to one q AM Provider: Jose Clarke DO Verified pharmacy: yes Verified day(s) supplied: yes Verified refill(s) needed (previous prescription showing no refills in chart): Yes Have you received any controlled medications from any other provider? N/A Overdue for visit: No If yes - patient scheduled? N/A Most recent labs completed in chart? N/A None Name of caller: Brian Contact phone number: [phone] Relationship to Patient: patient Provider: Evy Practice: [facility] Chief Complaint/Reason for Call: Patient states he needs both medications chlorthalidone (Hygroton) 25 MG tablet ,atorvastatin (Lipitor) 80 MG tablet sent to [address] states they are saying there is no refills. Please advise patient when done needs as soon as possible. Best time of day caller can be reached: any Patient advised that office/PCP has 24-48 business hours to return their call: Yes documented in this encounter [facility] 02-11-2025 Telephone encount er Note Name of caller: Brian Contact phone number: [phone] Relationship to Patient: patient Provider: Evy Practice: [facility] Chief Complaint/Reason for Call: Patient states he needs both medications chlorthalidone (Hygroton) 25 MG tablet ,atorvastatin (Lipitor) 80 MG tablet sent to pharmacy [facility] [address] states they are saying there is no refills. Please advise patient when done needs as soon as possible. Best time of day caller can be reached: any Patient advised that office/PCP has 24-48 business hours to return their call: Yes [facility] 01-18-2025 Evaluation note Diagnosis Chronic kidney disease, stage 3a (HCC)- Primary Secondary hyperparathyroidism of renal origin (HCC) Secondary hyperparathyroidism (of renal origin) [id number] History of Present illness Narrative* Jose Clarke, DO - 12/21/2024 8:00 AM EST Images from the original note were not included. [facility] - [address] [facility] [address] Visit type: Established Patient Reason for Visit: Hospital Follow-up (TOC_ dizzy and nausea ) and Constipation (Hasn't went in 4 days ) Assessment / Plan: Brian was seen today for hospital follow-up and constipation. Diagnoses and all orders for this visit: Vertigo (Primary) Comments: Resolved, Essential hypertension Comments: Stable, continue lisinopril, amlodipine, hydralazine and chlorthalidone Stage 3b chronic kidney disease (HCC) 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 Hypercholesterolemia with hypertriglyceridemia Comments: Stable but due to insomnia change Lipitor to every morning Right thalamic stroke (HCC) Comments: Remote, asymptomatic, continue aspirin and other meds Hypoglycemic event due to diabetes (HCC) Comments: Reviewed meds in length, decrease glimepiride to 1 mg every morning only. Decrease insulin to 10 units/day. Call with update in 2 weeks Other constipation Comments: New onset to Dulcolax and take mag citrate 4 ounces no better. More water and avoidance measures discussed Other orders - glimepiride (Amaryl) 1 MG tablet; Decrease to 1 mg every morning only - aspirin 81 MG EC tablet; Take 1 tablet (81 mg) by mouth daily. - atorvastatin (Lipitor) 80 MG tablet; Change to each AM after Breakfast - chlorthalidone (Hygroton) 25 MG tablet; Change to one q AM Subjective: Patient ID: Brian Joshi is a 84 y.o. male. HPI better controlled type II diabetic now back on insulin presents after going to the ER and admitted for dizziness. Extensive workup resulted in a diagnosis of vertigo. Given Zofran and sent home on meclizine but has not had to take any. He feels much better. CT showed possible old right thalamic CVA. He denies history of diplopia, scotomas, or unilateral numbness or this of the face arm or legs. He does states he perhaps his glucose level was low. Time that EMS evaluation glucose was 190. But having episodes in the 70s and 80s. Of note he still taking glimepiride twice a day. Insulin went from 14 units back to 10 units and he feels better. He is having some constipation of the last 4 days. No chronic issues. No vomiting or abdominal pain. No mucus blood or diarrhea. Review of Systems no headache or diplopia. No numbness of the face arm or legs. No chest pain or palpitation. Pacemaker update stable. Feeling better. 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 He denies heartburn or indigestion. No vomiting or diarrhea. No change in urine flow.He feels back to his normal self. No Known Allergies Current Outpatient Medications on File Prior to Visit Medication Sig Dispense Refill amLODIPine (Norvasc) 10 MG tablet TAKE 1 TABLET BY MOUTH DAILY 100 tablet 2 ezetimibe (Zetia) 10 MG tablet TAKE 1 TABLET BY MOUTH DAILY 100 tablet 2 hydrALAZINE (Apresoline) 25 MG tablet TAKE 1 TABLET BY MOUTH 3 TIMES DAILY 240 tablet 3 insulin glargine (Lantus SoloStar) 100 UNIT/ML pen Decrease to 10 units subcutaneous each day and increase by 1 unit every other day if fasting glucose level over 140. Then maintain that total dosageonce glucose levels are generally running around 140 or lower 3 mL 3 lisinopril 40 MG tablet TAKE 1 TABLET BY MOUTH DAILY 100 tablet 2 Melatonin 10 MG capsule Take 10 mg by mouth Nightly. ondansetron ODT (Zofran-ODT) 4 MG disintegrating tablet Take 4 mg by mouth every 8 hours as needed for nausea. [DISCONTINUED] Aspirin-Calcium Carbonate 81-777 MG tablet Take 81 mg by mouth in the morning. [DISCONTINUED] atorvastatin (Lipitor) 80 MG tablet TAKE 1 TABLET BY MOUTH DAILY 100 tablet 2 [DISCONTINUED] chlorthalidone (Hygroton) 25 MG tablet TAKE 1 TABLET BY MOUTH DAILY 100 tablet 2 [DISCONTINUED] glimepiride (Amaryl) 2 MG tablet Decrease to 1 every morning only 200 tablet 2 Continuous Glucose Radio Equipment Repairer (FreeStyle Jose 3 [place]) device 1 each 2 times daily as needed (checkglucose levels). E11.9 1 each 0 Continuous Glucose Sensor (FreeStyle Jose 3 Sensor) misc 1 each every 14 (fourteen) days. E11.9 2 each 11 Glucose Blood (Blood Glucose Test) strip E11.9 Test 2 times a day & as needed for symptoms of irregular blood glucose. Dispense sufficient amount for indicated testing frequency plus additional to accommodate PRN testing needs. glucose blood (FREESTYLE LITE) test strip 1 each. glucose blood test strip 1 each by Other route 2 times daily. Use as instructed 100 each 12 insulin pen needle 31G X 8 mm misc E11.9 Use to inject 1-4 times daily as directed. 100 each 11 Lancets 1 each by Other route 2 times daily. 100 each 3 nitroglycerin (Nitrostat) 0.[address] 0.3 mg under the tongue. No current facility-administered medications on file prior to visit. Patient Active Problem List Diagnosis Essential hypertension Stage 3b chronic kidney disease (HCC) CAD (coronary artery disease) Eczema Benign prostatic hyperplasia Hypercholesterolemia with hypertriglyceridemia Family history of colon cancer ED (erectile dysfunction) Type 2 diabetes mellitus with diabetic chronic kidney disease (HCC) Family history of prostate cancer Pacemaker Wears hearing aid in right ear Hx of fracture of left hip Chronic left-sided lumbar radiculopathy Left foot drop Social History Tobacco Use Smoking status: Never Smokeless tobacco: Never Substance Use Topics Alcohol use: No Alcohol/week: 0.0 standard drinks of alcohol Past Surgical History: Procedure Laterality Date CARDIAC PACEMAKER PLACEMENT 12/2017 [facility] / Black CATARACT EXTRACTION Bilateral COLONOSCOPY 2004 [facility] COLONOSCOPY 2014 [facility] CORONARY ANGIOPLASTY WITH STENT PLACEMENT 03/2010 LAD coronary stent CYSTOSCOPY 08/2022 [place] HAND CONTRACTURE RELEASE Right 08/2022 Dr. Forde PARTIAL HIP ARTHROPLASTY Left 08/2022 Dr. Forde TRANSURETHRAL RESECTION OF PROSTATE 07/2020 Dr Costa Family History Problem Relation Name Age of Onset Colon cancer Mother age 82 Coronary artery disease Father [place], age 57 No Known Problems Sister Diabetes Sister Hypertension Brother Arthur Prostate cancer Brother Arthur 74 alive age 80 No Known Problems Brother Ramon in ECF, alive age 88 Prostate cancer Brother pastor pedraza 70 Dementia Brother pastor pedraza in ECF age 93 Objective: BP 135/66 (BP Location: Left arm, Patient Position: Sitting, BP Cuff Size: Adult long) Pulse 73 Temp 36.9 C (98.5 F) (Temporal) Ht 6' (1.829 m) Wt 178 lb (80.7 kg) SpO2 97% BMI 24.14 kg/m Physical Exam he appears well. Recheck blood pressure stable. Not low. Not tachycardic. Pupils equal. Extraocular muscles are intact. Rapid alternating movements normal. Normal [id number], tandemgait testing and Romberg testing. No Ramila's or Babinski. No carotid bruits. Heart is regular without ectopy or new murmurs. Lungs are clear. Abdomen withoutpain hepatosplenomegaly or masses. documented in this [facility]02-25-2025 [facility] Medical Records Department [address] [place] [address] Discharge Summary 12/18/24 1156 MR#: [id number] Acct: [id number] Name: BRIAN JOSHI Rep #: [id number] : 1940 84 From: Janiya Robert MD PCP: Dr. Jose Clarke DO Status:DIS DIEGO Location: [place] [address] Providers Date of Admission: 12/17/24 Date of Discharge: 12/18/24 Primary Care Physician: Dr. Jose Clarke DO Reason For Visit: VERTIGO Diagnosis Discharge Diagnosis (1) Acute vertigo with vomiting and inability to stand: Status: Acute Code(s): R42 - Dizziness and giddiness; R11.10 - Vomiting, unspecified (2) History of CVA (cerebrovascular accident): Status: Acute Code(s): Z86.73 - Personal history of transient ischemic attack (TIA), and cerebral infarction without residual deficits Plan #Vertigo #DMII #Hx CVA #Hx CAD #HTN Medications at Discharge Home Medications hydralazine 100 mg tablet 25 mg PO TID BP 12/16/16 lisinopril 40 mg tablet 40 mg PO DAILY BP 06/13/20 aspirin 81 mg tablet 81 mg PO DAILY Heart 04/23/21 glimepiride 1 mg tablet 2 mg PO BID Diabetes 04/23/21 atorvastatin 80 mg tablet 80 mg PO QHS HYPERLIPIDEMIA 08/28/22 acetaminophen 500 mg tablet 1,000 mg (2 x 500 mg) PO Q8 pain #0 tabs 09/08/22 amlodipine 10 mg tablet 10 mg PO DAILY blood pressure 30 days #30 tabs 09/08/22 chlorthalidone 25 mg tablet 25 mg PO DAILY 12/17/24 ezetimibe 10 mg tablet 10 mg PO DAILY cholesterol 12/17/24 insulin glargine 100 unit/mL (3 mL) subcutaneous pen (Lantus Solostar U-100 Insulin) 10 unit subcut DAILY diabetes 12/17/24 ondansetron 4 mg disintegrating tablet 4 mg PO Q6H PRN PRN Nausea #15 tabs 12/17/24 Hospital Course Summary of Care Provided Minutes Spent on Discharge: 25 Hospital Course: Per HPI: BRIAN JOSHI, is a 84 M who presents with dizziness. Dizziness began last night. Worse with changing position and patient has been unsteady due to this. Presented to the emergency room where he underwent a workup including a CAT scan that showed a chronic right caudate lacunar infarct. Patient knuckling of dizziness while at rest but does get worse when he changes position. He has never had this problem before. He has had some abdominal pain and did have some nausea and vomiting. INTERVAL HISTORY: Patient's symptoms completely resolved with no further acute intervention, on day of discharge she worked well with therapy and no therapy was recommended, suspect that this was in her ear and not stroke in nature, patient comfortable with following up with primary care physician. On day of discharge patient reports he had had a little nausea last night a little bit earlier but no further vomiting, no further dizzy episodes since 1 time feeling briefly lightheaded when initially getting up this morning that is resolved Physical Exam Narrative General: Alert, oriented, no apparent distress HEENT: Atraumatic, normocephalic Eyes: Anicteric, normal conjunctiva, extraocular movements grossly intact Neck: Supple Respiratory: Clear to auscultation bilaterally, normal respiratory effort Cardiovascular: Regular rate and rhythm GI: Soft, nontender, nondistended Extremities: No edema Musculoskeletal: Moving all extremities Neuro: No overt focal neurological deficits Skin: No rashes appreciated Psych: Cooperative Weight / BMI Weight Weight: 78.9 kg Body Mass Index (BMI) 23.6 ABG / Lab / Microbiology Data 12/17/24 12:13 12/18/24 07:11 Laboratory: Laboratory Results - last 24 hr 12/18/24 00:10: POC Glucose 186 H 12/18/24 06:54: POC Glucose 114 H 12/18/24 07:11: Sodium 142, Potassium 3.3 L, Chloride 110 H, Carbon Dioxide 29.0, Anion Gap 3 L, BUN 30 H, Creatinine 1.43 H, Estim Creat Clear Calc 42.96, Est GFR (MDRD) Af Amer 61, Est GFR (MDRD) Non-Af 50 L, BUN/Creatinine Ratio 21.0 H, Glucose 99, Calcium 8.8 12/18/24 11:04: POC Glucose 218 H Radiography Diagnostic Testing: Radiology Impression Chest X-Ray 12/17/24 12:55 IMPRESSION: Pulmonary venous congestion. Reading Location: [facility] Brain CT 12/17/24 16:06 IMPRESSION: Chronic right caudate lacunar infarct. No CT evidence of acute intracranial pathology. Reading Location: [facility] D/C Instructions Discharge Diet: - (DASH diet) DC O2, CPAP, BIPAP Needs Home O2 Discharge instructions: No Meaningful Use Info Meaningful Use Meaningful Use Diagnoses (Choose all that apply): None applicable Ischemic Stroke Statin Dosing Therapy Reference: STATIN DOSE THERAPY REFERENCE: * Patients > 75 years receive moderate or high dose statin therapy. * Patients 75 years or YOUNGER should receive HIGH intensity statin dose unless contrai (more content not included)...[facility]01-21-2025 History of Present illness Narrative* Jose Clarke, - 11/13/2024 12:00 PM EST Images from the original note were not included. [facility] - [address] [facility] [address] Dept: [phone] Dept Loc: [phone] Patient was identified and seen today via Telehealth by agreement and consent. I used the followingTelehealth technology: Audio capability only. Total length of call 15 minutes. The patient was offered and advised video for a more comprehensive evaluation, but the patient declined or was unable touse video. Patient location: Patient Location: Home. This patient encounter is appropriate and reasonable under the circumstances: . The patient has been advised of the potential risks and limitations of this mode of treatment (including but not limited to the absence of in-person examination) and has agreed to be treated in a remote fashion in spite of them. Any and all of the patient's/patient's family's questions on this issue have been answered and I have made no promises or guarantees to the patient. The patient has also been advised to contact this office for worsening conditions or problems, and seek emergency medical treatment and/or call 911 if the patient deems either necessary. The patient stated that they are currently in the [facility]. If the patient is a minor, permission has been obtained by the parent or guardian for the patient to receive medical care at this visit. Assessment/Plan Diagnoses and all orders for this visit: Adverse effect of oral hypoglycemic drug, initial encounter (Primary) Comments: Decrease amaryl to 2 mg every morning only and decrease Lantus to 10 units daily Type 2 diabetes mellitus with stage 3b chronic kidney disease, with long-term current use of insulin ([facility]) Other orders - glimepiride (Amaryl) 2 MG tablet; Decrease to 1 every morning only - insulin glargine (Lantus SoloStar) 100 UNIT/ML pen; Decrease to 10 units subcutaneous each day and increase by 1 unit every other day if fasting glucose level over 140. Then maintain that total dosage once glucose levels are generally running around 140 or lower During the telephone call he was certainly alert and oriented and in no acute distress. He was lucid during the discussion and understood our plans for his diabetic management. No follow-ups on file. Patient to call with update on glucose levels in 2 weeks. Symptoms of hypoglycemia discussed. Continue on Jardiance and decrease glimepiride to 2 mg every morning only. Restart insulin at 10 units daily only Alis Joshi is a 84 y.o. who presents on the telephone for a remote visit. Chief complaint: No chief complaint on file. Recurrent hypoglycemia HPI Type II diabetic that recently was restarted on insulin presents to discuss recurrent hypoglycemic reactions in the morning. Of note has been on Jardiance and glimepiride with elevated A1c levels. Hecannot afford Jardiance and that was stopped yesterday. Still on glimepiride 2 mg twice daily. Having hypoglycemia in the morning of 55 to 60 mg/Huong levels. Minimally symptomatic but eat some extra cookies and his glucose level jumps up nicely. No headache or fever. No vomiting or abdominal pain. No other source of risk for hypoglycemia. He would like some instruction on how to prevent recurrent hypoglycemia. No Known Allergies [] PMH, allergies, and social history reviewed and updated as appropriate [] Medication list reviewed/updated [] Allergies reviewed/updated [] Problem list reviewed/updated [] Patient requests medication refills, see below for orders. Jose Clarke DO 11/13/2024 12:14 PM documented in this [facility]01-21-2025 Telephone encounter Note* Telephone Encounter - Paz Moffett RN - 11/13/2024 8:58 AM EST S: Patient called the clinical access center with complaint of blood sugar 55 this AM. He ate something and shot to 250. B: Ongoing has been having trouble with his blood sugars since starting Lantus. A: Patient c/o woke up at 55. He ate 1 cookie and blood sugar went up to 250. Checks with Jose. Lantus was 12 units yeaterday and has not take it today. Also on glimperide. Ran out of Jardiance, states he took this last night. Blood suagr will stay above 200 all day. When he wakes up in the mornings blood sugar runs low 50-70. Started Lantus 5 days ago. After he eats breakfast and takes his Lantus his blood sugar remains high all day. It may drop to the 140's but will go right back up over 200. Please call [phone] R: Telephone Appointment scheduled 11/13/[address] Clarke this was Ok'd by Geena. Insurance verified. . Home Care advice given. Patient instructed to call back with worsening symptoms, concerns or questions. Patient verbalized understanding. Message to the office for review by the provider and needs recommendation from Provider for treatment going forward. Reason for Disposition Morning (before breakfast) blood glucose < 80 mg/dL (4.4 mmol/L) and more than once in past week Protocols used: Diabetes - Low Blood [id number] [id number] Miscellaneous Notes* Telephone Encounter - Paz Moffett RN - 11/13/2024 8:58 AM EST S: Patient called the clinical access center with complaint of blood sugar 55 this AM. He ate something and shot to 250. B: Ongoing has been having trouble with his blood sugars since starting Lantus. A: Patient c/o woke up at 55. He ate 1 cookie and blood sugar went up to 250. Checks with Jose. Lantus was 12 units yeaterday and has not take it today. Also on glimperide. Ran out of Jardiance, states he took this last night. Blood suagr will stay above 200 all day. When he wakes up in the mornings blood sugar runs low 50-70. Started Lantus 5 days ago. After he eats breakfast and takes his Lantus his blood sugar remains high all day. It may drop to the 140's but will go right back up over 200. Please call [phone] R: Telephone Appointment scheduled 11/13/[address] Clarke this was Ok'd by Geena. Insurance verified. . Home Care advice given. Patient instructed to call back with worsening symptoms, concerns or questions. Patient verbalized understanding. Message to the office for review by the provider and needs recommendation from Provider for treatment going forward. Reason for Disposition Morning (before breakfast) blood glucose < 80 mg/dL (4.4 mmol/L) and more than once in past week Protocols used: Diabetes - Low Blood [id number] documented [facility] this [facility]01-16-2025 Telephone encounter Note* Telephone Encounter - Naa Kearney - 11/08/2024 3:45 PM EST Message released to patient as written. Patient's further questions if applicable: Were all questions from office addressed or relayed to the patient from encounter: Yes. I released the message to the patient. No questions at this time. Please advise [facility] [id number] Miscellaneous Notes* Telephone Encounter - Naa Kearney - 11/08/2024 3:45 PM EST Message released to patient as written. Patient's further questions if applicable: Were all questions from office addressed or relayed to the patient from encounter: Yes. I released the message to the patient. No questions at this time. Please advise * Telephone Encounter - Madhuri Robison LPN - 11/08/2024 3:25 PM EST Placed call to patient to discuss provider direction. Message left on voicemail to return call. Please release message to patient: Yes. The patient should continue glimepiride as directed * Telephone Encounter - Linnette Carvalho - 11/08/2024 12:19 PM EST Name of caller: Brian Contact phone number: [phone] Relationship to Patient: patient Provider: Dr. Clarke Practice: [facility] Chief Complaint/Reason for Call: Please refer to TE from today 11/08. Patient called in to see if they should continue taking their glimepiride (Amaryl) 2 MG tablet medication or not after they startthe insulin. Patient states that they believe they may take another pill for their sugar and they would like to clarify and see if they should be taking any medications for their sugar after they start the insulin. Patient is requesting a call back. Please advise. Best time of day caller can be reached: Any Patient advised that office/PCP has 24-48 business hours to return their call: Yes documented in this [facility]01-16-2025 Telephone encounter Note* Telephone Encounter - Madhuri Robison LPN - 11/08/2024 3:25 PM EST Placed call to patient to discuss provider direction. Message left on voicemail to return call. Please release message to patient: Yes. The patient should continue glimepiride as directed [id number] Note* Addendum Note - Jose Clarke DO - 11/08/2024 12:49 PM ESTAddended by: JOSE CLARKE on: 11/08/2024 12:49 PM Modules accepted: Orders [id number] Note* Addendum Note - Jose Clarke DO - 11/08/2024 12:49 PM ESTAddended by: JOSE CLARKE on: 11/08/2024 12:49 PM Modules accepted: Orders [id number] Note* Addendum Note - Jose Clarke DO - 11/08/2024 12:49 PM ESTAddended by: JOSE CLARKE on: 11/08/2024 12:49 PM Modules accepted: Orders [id number] Miscellaneous Notes* Addendum Note - Jose Clarke DO - 11/08/2024 12:49 PM ESTAddended by: JOSE CLARKE on: 11/08/2024 12:49 PM Modules accepted: Orders * Addendum Note - Madhuri Robison LPN - 11/08/2024 11:43 AM ESTAddended by: MADHURI ROBISON on: 11/08/2024 11:43 AM Modules accepted: Orders * Telephone Encounter - Madhuri Robison LPN - 11/08/2024 11:41 AM EST Talked to patient and relayed message and he will try those recommendations. Also patient is wanting to try the Jose system as well. RX loaded Next ov 02/01/25 * Telephone Encounter - Evie Calderón - 11/08/2024 9:03 AM EST Name of caller: kenny Contact phone number: [phone] Relationship to Patient: patient Provider: evy Practice[facility] Chief Complaint/Reason for Call: Pt states prescription for empagliflozin (Jardiance) 25 MG is too expensive for him to keep up with . Pt states with insurancehe has to pay $300 a month and without insurance its about $2200. Pt is requesting to switch to insulin instead sent to [facility].Pt is wanting to know when he recieves insulin will he still have to take Jardiance? Pt states pcp also gave him Tylenol 500mg and gabapentin (Neurontin) 300 MG capsule but can not take those because he sees double after taking the meds. Pt also asking for a patch to put on his arm to check his blood sugar with his phone.Please advise. Best time of day caller can be reached: AM Patient advised that office/PCP has 24-48 business hours to return their call: Yes * Telephone Encounter - Kianna Newton MA - 11/05/2024 10:19 AM EST Patient aware of results. Consent to increase his Jardiance to 25mg. Rx pended. Results faxed to Dr. Vines * Telephone Encounter - Kianna Newton MA - 11/05/2024 10:18 AM EST ----- Message from Jose Clarke DO sent at 11/04/2024 10:31 AM EST ----- lipids are at goal but A1c elevated over goal of less than 7.5. We do have to be careful of his kidney function, but we could either increase Jardiance to 25 mg a day or he should consider restartinginsulin. Let me know which 1 he consents to. 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 Vines documented in this [facility]01-16-2025 Telephone encounter Note* Telephone Encounter - Linnette Carvalho - 11/08/2024 12:19 PM EST Name of caller: Brian Contact phone number: [phone] Relationship to Patient: patient Provider: Dr. Clarke Practice: [facility] Chief Complaint/Reason for Call: Please refer to TE from today 11/08. Patient called in to see if they should continue taking their glimepiride (Amaryl) 2 MG tablet medication or not after they startthe insulin. Patient states that they believe they may take another pill for their sugar and they would like to clarify and see if they should be taking any medications for their sugar after they start the insulin. Patient is requesting a call back. Please advise. Best time of day caller can be reached: Any Patient advised that office/PCP has 24-48 business hours to return their call: Yes [facility] [id number] Note* Addendum Note - Madhuri Robison LPN - 11/08/2024 11:43 AM ESTAddended by: MADHURI ROBISON on: 11/08/2024 11:43 AM Modules accepted: Orders [facility] [id number] Note* Addendum Note - Madhuri Robison LPN - 11/08/2024 11:43 AM ESTAddended by: MADHURI ROBISON on: 11/08/2024 11:43 AM Modules accepted: Orders [place] [id number] Note* Addendum Note - Madhuri Robison LPN - 11/08/2024 11:43 AM ESTAddended by: MADHURI ROBISON on: 11/08/2024 11:43 AM Modules accepted: Orders [place] [id number] Telephone encounter Note* Telephone Encounter - Madhuri Robison LPN - 11/08/2024 11:41 AM EST Talked to patient and relayed message and he will try those recommendations. Also patient is wanting to try the [employer] system as well. RX loaded Next ov 02/01/25 [facility] [id number] Telephone encounter Note* Telephone Encounter - Evie Calderón - 11/08/2024 9:03 AM EST Name of caller: kenny Contact phone number: [phone] Relationship to Patient: patient Provider: evy Practice[facility] Chief Complaint/Reason for Call: Pt states prescription for empagliflozin (Jardiance) 25 MG is too expensive for him to keep up with . Pt states with insurancehe has to pay $300 a month and without insurance its about $2200. Pt is requesting to switch to insulin instead sent to [facility].Pt is wanting to know when he recieves insulin will he still have to take Jardiance? Pt states pcp also gave him Tylenol 500mg and gabapentin (Neurontin) 300 MG capsule but can not take those because he sees double after taking the meds. Pt also asking for a patch to put on his arm to check his blood sugar with his phone.Please advise. Best time of day caller can be reached: AM Patient advised that office/PCP has 24-48 business hours to return their call: Yes [facility] [id number] Telephone encounter Note* Telephone Encounter - Kiannaaugie Newton MA - 11/05/2024 10:19 AM EST Patient aware of results. Consent to increase his Jardiance to 25mg. Rx pended. Results faxed to Dr. Vines [facility] [id number] Miscellaneous Notes* Telephone Encounter - Kianna Newton MA - 11/05/2024 10:19 AM EST Patient aware of results. Consent to increase his Jardiance to 25mg. Rx pended. Results faxed to Dr. Vines * Telephone Encounter - Kianna Newton MA - 11/05/2024 10:18 AM EST ----- Message from Jose Clarke DO sent at 11/04/2024 10:31 AM EST ----- lipids are at goal but A1c elevated over goal of less than 7.5. We do have to be careful of his kidney function, but we could either increase Jardiance to 25 mg a day or he should consider restartinginsulin. Let me know which 1 he consents to. 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 Vines documented [facility] this [facility]01-13-2025 Telephone encounter Note* Telephone Encounter - Kianna Newton MA - 11/05/2024 10:18 AM EST ----- Message from Jose Clarke DO sent at 11/04/2024 10:31 AM EST ----- lipids are at goal but A1c elevated over goal of less than 7.5. We do have to be careful of his kidney function, but we could either increase Jardiance to 25 mg a day or he should consider restartinginsulin. Let me know which 1 he consents to. 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 Vines [facility] [id number] History of Present illness Narrative* Jose ClarkeDO - 10/30/2024 8:30 AM EST Images from the original note were not included. [facility] - [address] [facility] [id number] Visit type: Established Patient Reason for Visit: Follow-up (Med check) Assessment / Plan: Brian was seen today for follow-up. Diagnoses and all orders for this visit: Type 2 diabetes mellitus with stage 3b chronic kidney disease, without long-term current use of insulin (HCC) (Primary) Comments: Stable on Jardiance and glimepiride Hypercholesterolemia with hypertriglyceridemia Comments: Stable, continue Lipitor Stage 3b chronic kidney disease (HCC) 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 Essential hypertension Comments: Stable, continue current meds Chronic left-sided lumbar radiculopathy Comments: Recurrent restart gabapentin and Tylenol Orders: - Hemoglobin A1c; Future - Lipid panel; Future - Hemoglobin A1c - Lipid panel Left foot drop Other orders - triamcinolone (Kenalog) 0.1 % ointment; Apply topically 2 times daily for 30 doses. - gabapentin (Neurontin) 300 MG capsule; Take 1 capsule (300 mg) by mouth 2 times daily for 60 doses. Take with 2 Acetaminophen 500mg along with Gabapentin BID Subjective: Patient ID: Brian Joshi is a 84 y.o. male. HPI type II diabetic with heart disease, renal failure and hypertension and hyperlipidemia presentsfor checkup. Overall feeling well. Started Jardiance a few months ago and glucose levels acceptable. No hypoglycemic episodes. Has ongoing low back pain and left-sided sciatica. Would like to know analgesic options. Cannot take NSAIDs. He in review he was taking gabapentin but stopped it. He did think that medicine helped. He has a chronic left foot drop. Review of Systems weight is stable. No night sweats fevers or chills. No chest pain or use of nitro. No exertional dyspnea PND orthopnea claudication or edema. No heartburn or abdominal pain. Bowels are regular. No melena or blood. No dysuria. No back pain is about the same. No recent falls. History of moderate lumbar disc disease and chronic left leg neuropathy. No Known Allergies Current Outpatient Medications on File Prior to Visit Medication Sig Dispense Refill amLODIPine (Norvasc) 10 MG tablet TAKE 1 TABLET BY MOUTH DAILY 100 tablet 2 Aspirin-Calcium Carbonate 81-777 MG tablet Take 81 mg by mouth in the morning. atorvastatin (Lipitor) 80 MG tablet TAKE 1 TABLET BY MOUTH DAILY 100 tablet 2 chlorthalidone (Hygroton) 25 MG tablet TAKE 1 TABLET BY MOUTH DAILY 100 tablet 2 empagliflozin (Jardiance) 10 MG Take 1 tablet (10 mg) by mouth daily. 30 tablet 3 ezetimibe (Zetia) 10 MG tablet TAKE 1 TABLET BY MOUTH DAILY 100 tablet 2 glimepiride (Amaryl) 2 MG tablet TAKE 1 TABLET BY MOUTH TWICE DAILY 200 tablet 2 hydrALAZINE (Apresoline) 25 MG tablet TAKE 1 TABLET BY MOUTH 3 TIMES DAILY 240 tablet 3 lisinopril 40 MG tablet TAKE 1 TABLET BY MOUTH DAILY 100 tablet 2 [DISCONTINUED] gabapentin (Neurontin) 300 MG capsule Take 1 capsule (300 mg) by mouth 2 times dailyfor 60 doses. Take with 2 Acetaminophen 500mg along with Gabapentin BID 60 capsule 2 Glucose Blood (Blood Glucose Test) strip E11.9 Test 2 times a day & as needed for symptoms of irregular blood glucose. Dispense sufficient amount for indicated testing frequency plus additional to accommodate PRN testing needs. glucose blood (FREESTYLE LITE) test strip 1 each. glucose blood test strip 1 each by Other route 2 times daily. Use as instructed 100 each 12 Lancets 1 each by Other route 2 times daily. 100 each 3 nitroglycerin (Nitrostat) 0.[address] 0.3 mg under the tongue. No current facility-administered medications on file prior to visit. Patient Active Problem List Diagnosis Essential hypertension Stage 3b chronic kidney disease (HCC) CAD (coronary artery disease) Eczema Benign prostatic hyperplasia Hypercholesterolemia with hypertriglyceridemia Family history of colon cancer ED (erectile dysfunction) Type 2 diabetes mellitus with diabetic chronic kidney disease (HCC) Family history of prostate cancer Pacemaker Wears hearing aid in right ear Hx of fracture of left hip Chronic left-sided lumbar radiculopathy Left foot drop Social History Tobacco Use Smoking status: Never Smokeless tobacco: Never Substance Use Topics Alcohol use: No Alcohol/week: 0.0 standard drinks of alcohol Past Surgical History: Procedure Laterality Date CARDIAC PACEMAKER PLACEMENT 12/2017 Koffi / Black CATARACT EXTRACTION Bilateral COLONOSCOPY 2004 Ahmed COLONOSCOPY 2014 Marshal- defers rech CORONARY ANGIOPLASTY WITH STENT PLACEMENT 03/2010 LAD coronary stent CYSTOSCOPY 08/2022 Dr. Costa, [place] HAND CONTRACTURE RELEASE Right 08/2022 Dr. Forde PARTIAL HIP ARTHROPLASTY Left 08/2022 Dr. Forde TRANSURETHRAL RESECTION OF PROSTATE 07/2020 Dr Costa Family History Problem Relation Name Age of Onset Colon cancer Mother age 82 Coronary artery disease Father [place], age 57 No Known Problems Sister Diabetes Sister Hypertension Brother Arthur Prostate cancer Brother Arthur 74 alive age 80 No Known Problems Brother Ramon in ECF, alive age 88 Prostate cancer Brother pastor pedraza 70 Dementia Brother pastor pedraza in ECF age 93 Objective: BP 123/58 (BP Location: Left arm, Patient Position: Sitting, BP Cuff Size: Large adult) Pulse 78 Temp 37 C (98.6 F) (Temporal) Ht 6' (1.829 m) Wt 174 lb (78.9 kg) SpO2 96% BMI 23.60 kg/m Physical Exam pleasant alert and cooperative. Well-hydrated. Recheck blood pressure excellent. No thyroid or neck masses. No carotid bruits. Regular without new murmurs or ectopy. Lungs are clear. Abdomen without pain hepatosplenomegaly masses or bruits. No ascites. Extremities have trace pedal edema which is chronic. Pulses are diminished but adequate. There is no skin breakdowns of his feet. Hehas a moderate left foot drop. documented in this [facility]01-07-2025 Instructions* Patient Instructions* Jose Clarke DO - 10/30/2024 8:30 AM EST Restart Gabapentin twice a day routinely for low back and leg pain documented in this [facility]11-27-2024 Telephone encounter Note* Telephone Encounter - Kianna Newton MA - 09/19/2024 1:48 PM EST Recent Visits Date Type Provider Dept 07/03/24 Office Visit Jose Payton DO [facility] 02/07/24 Office Visit Jose Payton DO [facility] 11/08/23 Office Visit Jose Payton [facility] Showing recent visits within past 365 days and meeting all other requirements Future Appointments Date Type Provider Dept 10/30/24 Appointment Jose Payton [facility] Showing future appointments within next 90 days and meeting all other requirements Requested Prescriptions Pending Prescriptions Disp Refills atorvastatin (Lipitor) 80 MG tablet [Pharmacy Med Name: Atorvastatin Calcium 80 MG Oral Tablet] 100tablet 2 Sig: TAKE 1 TABLET BY MOUTH DAILY glimepiride (Amaryl) 2 MG tablet [Pharmacy Med Name: Glimepiride 2 MG Oral Tablet] 200 tablet 2 Sig: TAKE 1 TABLET BY MOUTH TWICE DAILY ezetimibe (Zetia) 10 MG tablet [Pharmacy Med Name: Ezetimibe 10 MG Oral Tablet] 100 tablet 2 Sig: TAKE 1 TABLET BY MOUTH DAILY chlorthalidone (Hygroton) 25 MG tablet [Pharmacy Med Name: Chlorthalidone 25 MG Oral Tablet] 100 tablet 2 Sig: TAKE 1 TABLET BY MOUTH DAILY lisinopril 40 MG tablet [Pharmacy Med Name: Lisinopril 40 MG Oral Tablet] 100 tablet 2 Sig: TAKE 1 TABLET BY MOUTH DAILY amLODIPine (Norvasc) 10 MG tablet [Pharmacy Med Name: amLODIPine Besylate 10 MG Oral Tablet] 100 tablet 2 Sig: TAKE 1 TABLET BY MOUTH DAILY Provider: Jose Clarke DO Verified pharmacy: yes Verified day(s) supplied: yes Verified refill(s) needed (previous prescription showing no refills in chart): Yes Have you received any controlled medications from any other provider? N/A Overdue for visit: No If yes - patient scheduled? Yes Most recent labs completed in chart? Yes Hypertension: Lab Results Component Value Date NA 141 10/21/2023 K 3.7 10/21/2023 EGFR 44 (L) 07/03/2024 BUN 31 (H) 07/03/2024 CREATININE 1.56 (H) 07/03/2024 [facility]11-27-2024 Miscellaneous Notes* Telephone Encounter - Kianna Newton MA - 09/19/2024 1:48 PM EST Recent Visits Date Type Provider Dept 07/03/24 Office Visit Jose Tata DO [facility] 02/07/24 Office Visit Jose Payton [facility] 11/08/23 Office Visit [facility] Showing recent visits within past 365 days and meeting all other requirements Future Appointments Date Type Provider Dept 10/30/24 Appointment Jose ClarkeDO [facility] Showing future appointments within next 90 days and meeting all other requirements Requested Prescriptions Pending Prescriptions Disp Refills atorvastatin (Lipitor) 80 MG tablet [Pharmacy Med Name: Atorvastatin Calcium 80 MG Oral Tablet] 100tablet 2 Sig: TAKE 1 TABLET BY MOUTH DAILY glimepiride (Amaryl) 2 MG tablet [Pharmacy Med Name: Glimepiride 2 MG Oral Tablet] 200 tablet 2 Sig: TAKE 1 TABLET BY MOUTH TWICE DAILY ezetimibe (Zetia) 10 MG tablet [Pharmacy Med Name: Ezetimibe 10 MG Oral Tablet] 100 tablet 2 Sig: TAKE 1 TABLET BY MOUTH DAILY chlorthalidone (Hygroton) 25 MG tablet [Pharmacy Med Name: Chlorthalidone 25 MG Oral Tablet] 100 tablet 2 Sig: TAKE 1 TABLET BY MOUTH DAILY lisinopril 40 MG tablet [Pharmacy Med Name: Lisinopril 40 MG Oral Tablet] 100 tablet 2 Sig: TAKE 1 TABLET BY MOUTH DAILY amLODIPine (Norvasc) 10 MG tablet [Pharmacy Med Name: amLODIPine Besylate 10 MG Oral Tablet] 100 tablet 2 Sig: TAKE 1 TABLET BY MOUTH DAILY Provider: Jose Clarke DO Verified pharmacy: yes Verified day(s) supplied: yes Verified refill(s) needed (previous prescription showing no refills in chart): Yes Have you received any controlled medications from any other provider? N/A Overdue for visit: No If yes - patient scheduled? Yes Most recent labs completed in chart? Yes Hypertension: Lab Results Component Value Date NA 141 10/21/2023 K 3.7 10/21/2023 EGFR 44 (L) 07/03/2024 BUN 31 (H) 07/03/2024 CREATININE 1.56 (H) 07/03/[address] [facility]11-25-2024 Telephone encounter Note* Telephone Encounter - Adina Westbrook - 09/17/2024 9:04 AM EST Medication name: One touch ultra II Medication dosage: NA Monthly quantity needed: 100 strips How many day supply requestin days Medication route: intramuscular injection (IM) Medication administration time(s): 2 times a day (BID) If taking medication PRN, reason for taking medication: N/A If this is a controlled substance do you receive this or any other controlled medication from any other doctor or facility: No Ordering provider: Dr. Clarke Date of last office visit: 07.03.2024 Date of next office visit: 10.30.2024 Date of last refill: (see medication tab): NA Updated/Validated preferred pharmacy: Yes Patient instructed to contact the pharmacy prior to picking up the medication: Yes [id number] Miscellaneous Notes* Telephone Encounter - Adina Westbrook - 09/17/2024 9:04 AM EST Medication name: One touch ultra II Medication dosage: NA Monthly quantity needed: 100 strips How many day supply requestin days Medication route: intramuscular injection (IM) Medication administration time(s): 2 times a day (BID) If taking medication PRN, reason for taking medication: N/A If this is a controlled substance do you receive this or any other controlled medication from any other doctor or facility: No Ordering provider: Dr. Clarke Date of last office visit: 07.03.2024 Date of next office visit: 10.30.2024 Date of last refill: (see medication tab): NA Updated/Validated preferred pharmacy: Yes Patient instructed to contact the pharmacy prior to picking up the medication: Yes documented [facility] this [facility]11-19-2024 Telephone encounter Note* Telephone Encounter - Idalia Pierce MA - 09/11/2024 10:28 AM EST Pended Recent Visits Date Type Provider Dept 07/03/24 Office Visit Jose Clarke, DO [facility] 02/07/24 Office Visit Jose Clarke, DO [facility] 11/08/23 Office Visit Jose Clarke, DO [facility] Showing recent visits within past 365 days and meeting all other requirements Future Appointments Date Type Provider Dept 10/30/24 Appointment Jose ClarkeDO [facility] Showing future appointments within next 90 days and meeting all other requirements Requested Prescriptions Pending Prescriptions Disp Refills hydrALAZINE (Apresoline) 25 MG tablet [Pharmacy Med Name: hydrALAZINE HCl 25 MG Oral Tablet] 240 tablet 1 Sig: TAKE 1 TABLET BY MOUTH 3 TIMES DAILY Provider: Jose Clarke DO Verified pharmacy: yes Verified day(s) supplied: yes Verified refill(s) needed (previous prescription showing no refills in chart): Yes Have you received any controlled medications from any other provider? N/A Overdue for visit: N/A If yes - patient scheduled? N/A Most recent labs completed in chart? N/A [facility] [id number] Miscellaneous Notes* Telephone Encounter - Idalia Pierce MA - 09/11/2024 10:28 AM EST Pended Recent Visits Date Type Provider Dept 07/03/24 Office Visit Jose Clarke, DO [facility] 02/07/24 Office Visit Jose Clarke DO [facility] 11/08/23 Office Visit Jose Clarke DO [facility] Showing recent visits within past 365 days and meeting all other requirements Future Appointments Date Type Provider Dept 10/30/24 Appointment Jose ClarkeDO [facility] Showing future appointments within next 90 days and meeting all other requirements Requested Prescriptions Pending Prescriptions Disp Refills hydrALAZINE (Apresoline) 25 MG tablet [Pharmacy Med Name: hydrALAZINE HCl 25 MG Oral Tablet] 240 tablet 1 Sig: TAKE 1 TABLET BY MOUTH 3 TIMES DAILY Provider: Jose Clarke DO Verified pharmacy: yes Verified day(s) supplied: yes Verified refill(s) needed (previous prescription showing no refills in chart): Yes Have you received any controlled medications from any other provider? N/A Overdue for visit: N/A If yes - patient scheduled? N/A Most recent labs completed in chart? N/A documented [facility]09-19-2024 Telephone encounter Note* Telephone Encounter - Sangita Quesada MA - 07/12/2024 9:40 AM EDT Rx loaded [id number] Miscellaneous Notes* Telephone Encounter - Sangita Quesada MA - 07/12/2024 9:40 AM EDT Rx loaded * Telephone Encounter - Rob Coombs - 07/12/2024 9:23 AM EDT Ordering provider: [facility] Date of last office visit: 07.03.2024 Date of next office visit: 10.30.2024 Updated/Validated preferred pharmacy: Yes Patient instructed to contact the pharmacy prior to picking up the medication: N/A (1) Medication name: amLODIPine (Norvasc) tablet Medication dosage: 10 mg (Miligrams Monthly quantity needed: 30 How many day supply requestin days Medication route: oral (PO) Medication administration time(s): daily If taking medication PRN, reason for taking medication: N/A If this is a controlled substance do you receive this or any other controlled medication from any other doctor or facility: N/A Date of last refill (see medication tab): 04.03.2024 (2) Medication name: glimepiride (Amaryl) tablet Medication dosage: 2 mg (Miligrams Monthly quantity needed: 60 How many day supply requestin days Medication route: oral (PO) Medication administration time(s): 2 times a day (BID) If taking medication PRN, reason for taking medication: N/A If this is a controlled substance do you receive this or any other controlled medication from any other doctor or facility: N/A Date of last refill (see medication tab): 06.18.2024 (3) Medication name: chlorthalidone (Hygroton) tablet Medication dosage: 25 mg (Miligrams Monthly quantity needed: 30 How many day supply requestin days Medication route: oral (PO) Medication administration time(s): daily If taking medication PRN, reason for taking medication: N/A If this is a controlled substance do you receive this or any other controlled medication from any other doctor or facility: N/A Date of last refill (see medication tab): 04.03.2024 (4) Medication name: hydrALAZINE (Apresoline) tablet Medication dosage: 25 mg (Miligrams Monthly quantity needed: 90 How many day supply requestin days Medication route: oral (PO) Medication administration time(s): 3 times a day (TID) If taking medication PRN, reason for taking medication: N/A If this is a controlled substance do you receive this or any other controlled medication from any other doctor or facility: N/A Date of last refill (see medication tab): 04.03.2024 (5) Medication name: lisinopril tablet Medication dosage: 40 mg (Miligrams Monthly quantity needed: 30 How many day supply requestin days Medication route: oral (PO) Medication administration time(s): daily If taking medication PRN, reason for taking medication: N/A If this is a controlled substance do you receive this or any other controlled medication from any other doctor or facility: N/A Date of last refill (see medication tab): 04.03.2024 (6) Medication name: ezetimibe (Zetia) tablet Medication dosage: 10 mg (Miligrams Monthly quantity needed: 30 How many day supply requestin days (Request for 100 Tablets) Medication route: oral (PO) Medication administration time(s): daily If taking medication PRN, reason for taking medication: N/A If this is a controlled substance do you receive this or any other controlled medication from any other doctor or facility: N/A Date of last refill (see medication tab): 02.28.2024 (7) Medication name: atorvastatin (Lipitor) tablet Medication dosage: 80 mg (Miligrams Monthly quantity needed: 30 How many day supply requestin days Medication route: oral (PO) Medication administration time(s): daily If taking medication PRN, reason for taking medication: N/A If this is a controlled substance do you receive this or any other controlled medication from any other doctor or facility: N/A Date of last refill (see medication tab): 12.14.[address] [facility]09-19-2024 Telephone encounter Note* Telephone Encounter - Rob Coombs - 07/12/2024 9:23 AM EDT Ordering provider: Evy Date of last office visit: 07.03.2024 Date of next office visit: 10.30.2024 Updated/Validated preferred pharmacy: Yes Patient instructed to contact the pharmacy prior to picking up the medication: N/A (1) Medication name: amLODIPine (Norvasc) tablet Medication dosage: 10 mg (Miligrams Monthly quantity needed: 30 How many day supply requestin days Medication route: oral (PO) Medication administration time(s): daily If taking medication PRN, reason for taking medication: N/A If this is a controlled substance do you receive this or any other controlled medication from any other doctor or facility: N/A Date of last refill (see medication tab): 04.03.2024 (2) Medication name: glimepiride (Amaryl) tablet Medication dosage: 2 mg (Miligrams Monthly quantity needed: 60 How many day supply requestin days Medication route: oral (PO) Medication administration time(s): 2 times a day (BID) If taking medication PRN, reason for taking medication: N/A If this is a controlled substance do you receive this or any other controlled medication from any other doctor or facility: N/A Date of last refill (see medication tab): 06.18.2024 (3) Medication name: chlorthalidone (Hygroton) tablet Medication dosage: 25 mg (Miligrams Monthly quantity needed: 30 How many day supply requestin days Medication route: oral (PO) Medication administration time(s): daily If taking medication PRN, reason for taking medication: N/A If this is a controlled substance do you receive this or any other controlled medication from any other doctor or facility: N/A Date of last refill (see medication tab): 04.03.2024 (4) Medication name: hydrALAZINE (Apresoline) tablet Medication dosage: 25 mg (Miligrams Monthly quantity needed: 90 How many day supply requestin days Medication route: oral (PO) Medication administration time(s): 3 times a day (TID) If taking medication PRN, reason for taking medication: N/A If this is a controlled substance do you receive this or any other controlled medication from any other doctor or facility: N/A Date of last refill (see medication tab): 04.03.2024 (5) Medication name: lisinopril tablet Medication dosage: 40 mg (Miligrams Monthly quantity needed: 30 How many day supply requestin days Medication route: oral (PO) Medication administration time(s): daily If taking medication PRN, reason for taking medication: N/A If this is a controlled substance do you receive this or any other controlled medication from any other doctor or facility: N/A Date of last refill (see medication tab): 04.03.2024 (6) Medication name: ezetimibe (Zetia) tablet Medication dosage: 10 mg (Miligrams Monthly quantity needed: 30 How many day supply requestin days (Request for 100 Tablets) Medication route: oral (PO) Medication administration time(s): daily If taking medication PRN, reason for taking medication: N/A If this is a controlled substance do you receive this or any other controlled medication from any other doctor or facility: N/A Date of last refill (see medication tab): 02.28.2024 (7) Medication name: atorvastatin (Lipitor) tablet Medication dosage: 80 mg (Miligrams Monthly quantity needed: 30 How many day supply requestin days Medication route: oral (PO) Medication administration time(s): daily If taking medication PRN, reason for taking medication: N/A If this is a controlled substance do you receive this or any other controlled medication from any other doctor or facility: N/A Date of last refill (see medication tab): [id number] History of Present illness Narrative* Jose Payton Evy, DO - 07/03/2024 8:30 AM EDT Images from the original note were not included. [facility] [address] [place] [address] [address] [facility] [address] Dept: [phone] Dept Chief Complaint: Brian Joshi is an 84 y.o. male here for an annual wellness visit. Assessment/Plan : Problem List Items Addressed This Visit Essential hypertension Relevant Orders CBC auto differential Comprehensive metabolic panel CAD (coronary artery disease) Hypercholesterolemia with hypertriglyceridemia Relevant Orders Lipid panel Type 2 diabetes mellitus with diabetic chronic kidney disease (HCC) Other Visit Diagnoses Encounter for subsequent annual wellness visit (AWV) in Medicare patient - Primary I have reviewed and reconciled the medication list with the patient today. Current Outpatient Medications Medication Sig Dispense Refill amLODIPine (Norvasc) 10 MG tablet Take 1 tablet (10 mg) by mouth daily. 90 tablet 1 Aspirin-Calcium Carbonate 81-777 MG tablet Take 81 mg by mouth in the morning. atorvastatin (Lipitor) 80 MG tablet Take 1 tablet (80 mg) by mouth daily. 90 tablet 3 chlorthalidone (Hygroton) 25 MG tablet Take 1 tablet (25 mg) by mouth daily. 90 tablet 1 glimepiride (Amaryl) 2 MG tablet TAKE 1 TABLET BY MOUTH TWICE DAILY 180 tablet 3 Glucose Blood (Blood Glucose Test) strip E11.9 Test 2 times a day & as needed for symptoms of irregular blood glucose. Dispense sufficient amount for indicated testing frequency plus additional to accommodate PRN testing needs. glucose blood (FREESTYLE LITE) test strip 1 each. hydrALAZINE (Apresoline) 25 MG tablet One tab TID 270 tablet 1 Lancets 1 each by Other route 2 times daily. 100 each 11 lisinopril 40 MG tablet Take 1 tablet (40 mg) by mouth daily. 90 tablet 1 nitroglycerin (Nitrostat) 0.[address] 0.3 mg under the tongue. ezetimibe (Zetia) 10 MG tablet TAKE 1 TABLET BY MOUTH DAILY (Patient not taking: Reported on 07/03/2024) 100 tablet 3 gabapentin (Neurontin) 300 MG capsule Take 1 capsule (300 mg) by mouth 2 times daily for 60 doses. Take with 2 Acetaminophen 500mg along with Gabapentin BID 60 capsule 2 No current facility-administered medications for this visit. Also reviewed during this visit: Meds Med Hx Surg Hx Fam Hx The following health maintenance schedule was reviewed with the patient and provided in printed form in the after visit summary: Health Maintenance Topic Date Due Depression Screening Never done RSV Immunization aged 60 or older (1 - 1-dose 60+ series) Never done Medicare Advantage Annual Wellness Visit Never done COVID-19 Vaccine (2022- season) 2024 Influenza Vaccine (1) 06/24/2024 DTaP/Tdap/Td Vaccines (2 - Td or Tdap) 11/16/2028 Pneumococcal Vaccine: 65+ Years Completed Zoster Vaccines Completed RSV Immunization under 20 Months Aged Out HIB Vaccines Aged Out Hepatitis B Vaccines Aged Out IPV Vaccines Aged Out Hepatitis A Vaccines Aged Out Meningococcal Vaccine Aged Out Rotavirus Vaccines Aged Out HPV Vaccines Aged Out List of current healthcare providers: Patient Care Team: Jose Clarke DO as PCP - General Orders Placed This Encounter Procedures CBC auto differential Standing Status: Future Number of Occurrences: 1 Standing Expiration Date: 07/03/2025 Comprehensive metabolic panel Standing Status: Future Number of Occurrences: 1 Standing Expiration Date: 07/03/2025 Lipid panel Standing Status: Future Number of Occurrences: 1 Standing Expiration Date: 07/03/2025 Review of Systems fairly well-controlled type II diabetic with history of heart disease, hypertension, hyperlipidemia presents for annual wellness exam. Glucose levels have been well. No change in vision or skin. No cardiac issues. No use of nitro. No exertional dyspnea chest pain or palpitations. No recurrent leg edema. Glucose levels have been fair. No recent heartburn or abdominal pain. Bowels are regular. No melena or blood. No dysuria. Intermittent use of Tylenol for low back pain. No recent sciatica. Physical Exam The physical exam is generally normal. Patient appears well, alert and oriented x 3, pleasant, cooperative. Vitals are as noted. No carotid bruits. Neck supple, no abnormal adenopathy, thyroid lesions or masses. Ears, nose and throat are normal without acute findings. Lungs are clear to auscultation. Heart is regular, without murmurs, gallops or ectopy. Abdomen is soft, non tender, w ithout masses, hepatosplenomegaly, or bruits. Normal BS evident. Extremities are normal without edema. Peripheral pulses are fair. No worrisome skin lesions. Screening neurological exam is normal without focal deficits. Objective : BP 138/70 (BP Location: Right arm, Patient Position: Sitting, BP Cuff Size: Large adult) Pulse 67 Temp 36.6 C (97.8 F) (Temporal) Ht 6' 1 (1.854 m) Wt 177 lb (80.3 kg) SpO2 99% BMI 23.35kg/m No results found. Subjective : Over the past 2 weeks, how often have you been bothered by any of the following problems? Trouble falling or staying asleep, or sleeping too much: Several days Feeling tired or having little energy: Not at all Poor appetite or overeating: Not at all Feeling bad about yourself - or that you are a failure or have let yourself or your family down: Not at all Trouble concentrating on things, such as reading the newspaper or watching television: Not at all Moving or speaking so slowly that other people could have noticed? Or the opposite - being so fidgety or restless that you have been moving around a lot more than usual.: Not at all Thoughts that you would be better off or hurting yourself in some way: Not at all Patient Health Questionnaire-9 Score: 1 Health Risk Assessment: General: General In general, how would you say your health is?: (!) Fair In the past 7 days, have you experienced any of the following: New or Increased Pain, New or Increased Fatigue, Loneliness, Social Isolation, Stress or Anger?: No Do you get the social and emotional suppport you need?: Yes Interventions: Defers intervention Health Habits/Nutrition: Health Habits / Nutrition On average, how many days per week do you engage in moderate to strenous exercise (like a brisk walk)?: 1 day On average, how man minutes do you engage in exercise at this level?: 20 min Have you lost any weight without trying in the past 3 months? : No Have you seen the dentist within the past year?: (!) No Hearing/ Vision: Hearing / Vision Do you or your family notice any trouble with your hearing that hasn't been managed with hearing aids?: No Do you have difficulty driving, watching TV, or doing any of your daily activities because of your eyesight?: No Have you had an eye exam within the past year?: (!) No No results found. Interventions: Vision concerns: Patient declines any further evaluation / treatment for this issue Safety: Safety Do you have a working smoke detector?: Yes Do you have any tripping hazards - loose or unsecured carpets or rugs?: No Do you have any tripping hazards - clutter in doorways, halls, or stairs?: No Do you have either shower bars, grab bars, non-slip mats or non-slip surfaces in your shower or bathtub? : Yes Do all your stairways have a railing or banister? : Yes Do you fasten your seatbelt when you are in a car?: Yes ADL: ADL In the past 7 days, did you need help from others to perform any of the following everyday activities: Eating, dressing, grooming,bathing, toileting, or walking / balance? : No In the past 7 days, did you need help from others to take care of any of the following: laundry, housekeeping, banking / finances,shopping, telephone use, food preparation, transportation, or taking medications? : No Living Will: Living Will Do you have a living will?: Yes Cognitive: Cognitive Screening: Mini-Cog Clock Drawing Test (CDT): 2 Words Recalled: 3 Total Score: 5 Total Score Interpretation: Normal Mini-Cog Fall Risk: Fall Risk One or more falls in the last year:: No Advised to use a cane or walker to get around safely:: No Feels unsteady when walking:: No Steadies self on furniture while walking at home:: No Worried about falling:: No Depression Screening: Over the past 2 weeks, how often have you been bothered by any of the following problems? Little interest or pleasure in doing things: Not at all Feeling down, depressed, or hopeless: Not at all Patient Health Questionnaire-2 Score: 0 Over the past 2 weeks, how often have you been bothered by any of the following problems? Trouble falling or staying asleep, or sleeping too much: Several days Feeling tired or having little energy: Not at all Poor appetite or overeating: Not at all Feeling bad about yourself - or that you are a failure or have let yourself or your family down: Not at all Trouble concentrating on things, such as reading the newspaper or watching television: Not at all Moving or speaking so slowly that other people could have noticed? Or the opposite - being so fidgety or restless that you have been moving around a lot more than usual.: Not at all Thoughts that you would be better off or hurting yourself in some way: Not at all Patient Health Questionnaire-9 Score: 1 If you checked off any problems on this questionnaire so far, How difficult have these problems made it for you to do your work, take care of things at home, or get along with other people?: Not difficult at all Interventions: Patient declines any further evaluation / treatment for this issue Up-to-date ophthalmologic exam. Wears hearing aids Tobacco Use: Social History Tobacco Use Smoking Status Never Smokeless Tobacco Never Alcohol Use: Audit Alcohol Screening Q1: How often do you have a drink containing alcohol?: Never Q2: How many drinks containing alcohol do you have on a typical day when you are drinking?: Patientdoes not drink Q3: How often do you have six or more drinks on one occasion?: Never Audit-C Score: 0 Skip to questions 9-10?: 1 Q4: How often during the last year have you found that you were not able to stop drinking once you had started?: Never Q5: How often during the last year have you failed to do what was normally expected from you because of drinking?: Never Q6: How often during the last year have you needed an alcoholic drink first thing in the morning toget yourself going after a night of heavy drinking?: Never Q7: How often during the last year have you had a feeling of guilt or remorse after drinking?: Never Q8: How often during the last year have you been unable to remember what happened the night before because you had been drinking?: Never Q9: Have you or someone else been injured as a result of your drinking?: No Q10: Has a relative, friend, doctor, or another health professional expressed concern about your drinking or suggested you cut down?: No Audit Total Score: 0 1. Essential hypertension Stable, continue amlodipine, Hygroton, hydralazine, lisinopril - CBC auto differential; Future - Comprehensive metabolic panel; Future - CBC auto differential - Comprehensive metabolic panel 2. Hypercholesterolemia with hypertriglyceridemia Stable, continue Zetia and Lipitor - Lipid panel; Future - Lipid panel 3. 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 Stable, continue all meds and aspiri 4. Type 2 diabetes mellitus with chronic kidney disease, without long-term current use of insulin, unspecified CKD stage (HCC) Stable, continue glimepiride and low-carb meals 5. Encounter for subsequent annual wellness visit (AWV) in Medicare patient Exercise 150 minutes/week. Continue all other meds and obtain vaccinations as discussed documented in this [facility]09-10-2024 Instructions* Patient Instructions* Jose Clarke DO - 07/03/2024 8:30 AM EDT Personalized Preventative Plan for Brian Joshi - 07/03/2024 Medicare offers a range of preventative health benefits. Some of the tests and screenings are paid in full while others may be subject to a deductible, co- insurance, and / or copay. Some of these benefits include a comprehensive review of your medical history including lifestyle, illnesses that mayrun in your family, and various assessments and screenings as appropriate. After reviewing your medical record and screening and assessments performed today, your provider may have ordered immunizations, labs, imaging, and / or referrals for you. A list of these orders (if applicable) as well as your Preventative Care list are included within your After Visit Summary for your review. Other Preventative Recommendations: A preventive eye exam by an cash management specialist is recommended every 1-2 years to screen for glaucoma, cataracts, macular degeneration, and other eye disorders. A preventive dental visit is recommended every 6 months. Try to get at least 150 minutes of exercise per week or 10,000 steps per day on a pedometer. You need 1200-1500mg of calcium and 1483-5522 international units of vitamin D per day. It is possible to meet your calcium requirement with diet alone, but a vitamin D supplement is usually necessary to meet this goal. When exposed to the sun, use a sunscreen that protects against both UVA and UVB radiation with an SPF of 30 or greater. Reapply every 2-3 hours or after sweating, drying off with a towel, or swimming. Always wear a seat belt when traveling in a car. Always wear a helmet when riding a bicycle or a motorcycle documented [facility] this [facility] [id number] Telephone encounter Note* Telephone Encounter - Paulette Pike MA - 06/18/2024 8:14 AM EDT Recent Visits Date Type Provider Dept 02/07/24 Office Visit Jose Clarke DO [facility] 11/08/23 Office Visit Jose Clarke DO [facility] Showing recent visits within past 365 days and meeting all other requirements Future Appointments Date Type Provider Dept 07/03/24 Appointment Jose Clarke DO [facility] Showing future appointments within next 90 days and meeting all other requirements Requested Prescriptions Pending Prescriptions Disp Refills glimepiride (Amaryl) 2 MG tablet [Pharmacy Med Name: Glimepiride 2 MG Oral Tablet] 180 tablet 3 Sig: TAKE 1 TABLET BY MOUTH TWICE DAILY Provider: Jose Clarke DO Overdue for visit: No If yes - patient scheduled? Yes Most recent labs completed in chart? Yes Verified pharmacy: yes Verified day(s) supplied: yes Verified refill(s) needed (previous prescription showing no refills in chart): Yes Have you received any controlled medications from any other provider? N/A Diabetes: Lab Results Component Value Date HGBA1C 9.2 (H) 02/07/2024 BUNCREATININ 19 02/07/2024 K 3.7 10/21/2023 NA 141 10/21/2023 LDL 89 06/17/2022 HDL 42 06/17/2022 CHOLESTEROLT 111 02/07/2024 TRIG 93 [facility]20[id number] Miscellaneous Notes* Telephone Encounter - Paulette Pike MA - 06/18/2024 8:14 AM EDT Recent Visits Date Type Provider Dept 02/07/24 Office Visit Jose Payton Evy DO [facility] 11/08/23 Office Visit Jose Payton Evy DO [facility] Showing recent visits within past 365 days and meeting all other requirements Future Appointments Date Type Provider Dept 07/03/24 Appointment Jose Payton HeriniteshDO evy [facility] Showing future appointments within next 90 days and meeting all other requirements Requested Prescriptions Pending Prescriptions Disp Refills glimepiride (Amaryl) 2 MG tablet [Pharmacy Med Name: Glimepiride 2 MG Oral Tablet] 180 tablet 3 Sig: TAKE 1 TABLET BY MOUTH TWICE DAILY Provider: Jose Clarke DO Overdue for visit: No If yes - patient scheduled? Yes Most recent labs completed in chart? Yes Verified pharmacy: yes Verified day(s) supplied: yes Verified refill(s) needed (previous prescription showing no refills in chart): Yes Have you received any controlled medications from any other provider? N/A Diabetes: Lab Results Component Value Date HGBA1C 9.2 (H) 02/07/2024 BUNCREATININ 19 02/07/2024 K 3.7 10/21/2023 NA 141 10/21/2023 LDL 89 06/17/2022 HDL 42 06/17/2022 CHOLESTEROLT 111 02/07/2024 TRIG 93 06/17/[address] [facility]06-11-2024 Telephone encounter Note* Telephone Encounter - Kianna Newton MA - 04/03/2024 9:38 AM EDT Recent Visits Date Type Provider Dept 02/07/24 Office Visit Jose Payton Evy DO [facility] 11/08/23 Office Visit Jose Tata Evy DO [facility] 06/14/23 Office Visit Jose Clarke DO [facility] Showing recent visits within past 365 days and meeting all other requirements Future Appointments Date Type Provider Dept 05/22/24 Appointment Jose Tata DO Evy [facility] Showing future appointments within next 90 days and meeting all other requirements Requested Prescriptions Pending Prescriptions Disp Refills amLODIPine (Norvasc) 10 MG tablet 90 tablet 1 Sig: Take 1 tablet (10 mg) by mouth daily. chlorthalidone (Hygroton) 25 MG tablet 90 tablet 1 Sig: Take 1 tablet (25 mg) by mouth daily. hydrALAZINE (Apresoline) 25 MG tablet 270 tablet 1 Sig: One tab TID glimepiride (Amaryl) 2 MG tablet 90 tablet 1 Sig: Take 1 tablet (2 mg) by mouth 2 times daily. lisinopril 40 MG tablet 90 tablet 1 Sig: Take 1 tablet (40 mg) by mouth daily. Provider: Jose Clarke DO Verified pharmacy: yes Verified day(s) supplied: yes Verified refill(s) needed (previous prescription showing no refills in chart): Yes Have you received any controlled medications from any other provider? N/A Overdue for visit: No If yes - patient scheduled? Yes Most recent labs completed in chart? Yes Diabetes: Lab Results Component Value Date HGBA1C 9.2 (H) 02/07/2024 BUNCREATININ 19 02/07/2024 K 3.7 10/21/2023 NA 141 10/21/2023 LDL 89 06/17/2022 HDL 42 06/17/2022 CHOLESTEROLT 111 02/07/2024 TRIG 93 06/17/2022 [facility] [id number] Miscellaneous Notes* Telephone Encounter - Kianna Newton MA - 04/03/2024 9:38 AM EDT Recent Visits Date Type Provider Dept 02/07/24 Office Visit DO [facility] 11/08/23 Office Visit DO [facility] 06/14/23 Office Visit DO [facility] Showing recent visits within past 365 days and meeting all other requirements Future Appointments Date Type Provider Dept 05/22/24 Appointment Jose Clarke DO [facility] Showing future appointments within next 90 days and meeting all other requirements Requested Prescriptions Pending Prescriptions Disp Refills amLODIPine (Norvasc) 10 MG tablet 90 tablet 1 Sig: Take 1 tablet (10 mg) by mouth daily. chlorthalidone (Hygroton) 25 MG tablet 90 tablet 1 Sig: Take 1 tablet (25 mg) by mouth daily. hydrALAZINE (Apresoline) 25 MG tablet 270 tablet 1 Sig: One tab TID glimepiride (Amaryl) 2 MG tablet 90 tablet 1 Sig: Take 1 tablet (2 mg) by mouth 2 times daily. lisinopril 40 MG tablet 90 tablet 1 Sig: Take 1 tablet (40 mg) by mouth daily. Provider: Jose Clarke DO Verified pharmacy: yes Verified day(s) supplied: yes Verified refill(s) needed (previous prescription showing no refills in chart): Yes Have you received any controlled medications from any other provider? N/A Overdue for visit: No If yes - patient scheduled? Yes Most recent labs completed in chart? Yes Diabetes: Lab Results Component Value Date HGBA1C 9.2 (H) 02/07/2024 BUNCREATININ 19 02/07/2024 K 3.7 10/21/2023 NA 141 10/21/2023 LDL 89 06/17/2022 HDL 42 06/17/2022 CHOLESTEROLT 111 02/07/2024 TRIG 93 06/17/2022 * Telephone Encounter - Shauna Rainey - 04/03/2024 9:12 AM EDT Ordering provider: Dr Clarke Date of last office visit: 02/07/2024 Date of next office visit: 05/22/2024 Updated/Validated preferred pharmacy: Yes Patient instructed to contact the pharmacy prior to picking up the medication: No (1) Medication name: amLODIPine (Norvasc) 10 MG tablet [[id number]] Order Details Dose: 10 mg Route: Oral Frequency: Daily Dispense Quantity: 90 tablet Refills: 1 Note to Pharmacy: Please send a replace/new response with 100-Day Supply if appropriate to maximizemember benefit. Requesting 1 year supply. Sig: Take 1 tablet (10 mg) by mouth daily. If taking medication PRN, reason for taking medication: N/A If this is a controlled substance do you receive this or any other controlled medication from any other doctor or facility: N/A Date of last refill (see medication tab): 12/14/2023 (2) Medication name: chlorthalidone (Hygroton) 25 MG tablet [[id number]] Order Details Dose: 25 mg Route: Oral Frequency: Daily Dispense Quantity: 90 tablet Refills: 1 Note to Pharmacy: Please send a replace/new response with 100-Day Supply if appropriate to maximizemember benefit. Requesting 1 year supply. Sig: Take 1 tablet (25 mg) by mouth daily. If taking medication PRN, reason for taking medication: N/A If this is a controlled substance do you receive this or any other controlled medication from any other doctor or facility: N/A Date of last refill (see medication tab): 12/14/2023 (3) Medication name: hydrALAZINE (Apresoline) 25 MG tablet [[id number]] Order Details Dose, Route, Frequency: As Directed Dispense Quantity: 270 tablet Refills: 1 Sig: One tab TID If taking medication PRN, reason for taking medication: N/A If this is a controlled substance do you receive this or any other controlled medication from any other doctor or facility: N/A Date of last refill (see medication tab): 12/14/2023 (4) Medication name: glimepiride (Amaryl) 2 MG tablet [[id number]] Order Details Dose: 2 mg Route: Oral Frequency: 2 times daily Dispense Quantity: 90 tablet Refills: 1 Sig: Take 1 tablet (2 mg) by mouth 2 times daily. If taking medication PRN, reason for taking medication: N/A If this is a controlled substance do you receive this or any other controlled medication from any other doctor or facility: N/A Date of last refill (see medication tab): 02/13/2024 (5) Medication name: lisinopril 40 MG tablet [[id number]] Order Details Dose: 40 mg Route: Oral Frequency: Daily Dispense Quantity: 90 tablet Refills: 1 Note to Pharmacy: Please send a replace/new response with 100-Day Supply if appropriate to maximizemember benefit. Requesting 1 year supply. Sig: Take 1 tablet (40 mg) by mouth daily. If taking medication PRN, reason for taking medication: N/A If this is a controlled substance do you receive this or any other controlled medication from any other doctor or facility: N/A Date of last refill (see medication tab): 12/14/[address] [facility]06-11-2024 Telephone encounter Note* Telephone Encounter - Shauna Rainey - 04/03/2024 9:12 AM EDT Ordering provider: Dr Clarke Date of last office visit: 02/07/2024 Date of next office visit: 05/22/2024 Updated/Validated preferred pharmacy: Yes Patient instructed to contact the pharmacy prior to picking up the medication: No (1) Medication name: amLODIPine (Norvasc) 10 MG tablet [[id number]] Order Details Dose: 10 mg Route: Oral Frequency: Daily Dispense Quantity: 90 tablet Refills: 1 Note to Pharmacy: Please send a replace/new response with 100-Day Supply if appropriate to maximizemember benefit. Requesting 1 year supply. Sig: Take 1 tablet (10 mg) by mouth daily. If taking medication PRN, reason for taking medication: N/A If this is a controlled substance do you receive this or any other controlled medication from any other doctor or facility: N/A Date of last refill (see medication tab): 12/14/2023 (2) Medication name: chlorthalidone (Hygroton) 25 MG tablet [[id number]] Order Details Dose: 25 mg Route: Oral Frequency: Daily Dispense Quantity: 90 tablet Refills: 1 Note to Pharmacy: Please send a replace/new response with 100-Day Supply if appropriate to maximizemember benefit. Requesting 1 year supply. Sig: Take 1 tablet (25 mg) by mouth daily. If taking medication PRN, reason for taking medication: N/A If this is a controlled substance do you receive this or any other controlled medication from any other doctor or facility: N/A Date of last refill (see medication tab): 12/14/2023 (3) Medication name: hydrALAZINE (Apresoline) 25 MG tablet [[id number]] Order Details Dose, Route, Frequency: As Directed Dispense Quantity: 270 tablet Refills: 1 Sig: One tab TID If taking medication PRN, reason for taking medication: N/A If this is a controlled substance do you receive this or any other controlled medication from any other doctor or facility: N/A Date of last refill (see medication tab): 12/14/2023 (4) Medication name: glimepiride (Amaryl) 2 MG tablet [[id number]] Order Details Dose: 2 mg Route: Oral Frequency: 2 times daily Dispense Quantity: 90 tablet Refills: 1 Sig: Take 1 tablet (2 mg) by mouth 2 times daily. If taking medication PRN, reason for taking medication: N/A If this is a controlled substance do you receive this or any other controlled medication from any other doctor or facility: N/A Date of last refill (see medication tab): 02/13/2024 (5) Medication name: lisinopril 40 MG tablet [[id number]] Order Details Dose: 40 mg Route: Oral Frequency: Daily Dispense Quantity: 90 tablet Refills: 1 Note to Pharmacy: Please send a replace/new response with 100-Day Supply if appropriate to maximizemember benefit. Requesting 1 year supply. Sig: Take 1 tablet (40 mg) by mouth daily. If taking medication PRN, reason for taking medication: N/A If this is a controlled substance do you receive this or any other controlled medication from any other doctor or facility: N/A Date of last refill (see medication tab): [facility]14/2023 [id number] Tele[facility] encounter Note* Telephone Encounter - Anabela Bain MA - 02/28/2024 10:10 AM EDT Recent Visits Date Type Provider Dept 02/07/24 Office Visit Jose Clarke DO [facility] 11/08/23 Office Visit DO [facility] 06/14/23 Office Visit DO [facility] Showing recent visits within past 365 days and meeting all other requirements Future Appointments Date Type Provider Dept 05/22/24 Appointment Jose Clarke DO [facility] Showing future appointments within next 90 days and meeting all other requirements Requested Prescriptions Pending Prescriptions Disp Refills ezetimibe (Zetia) 10 MG tablet [Pharmacy Med Name: Ezetimibe 10 MG Oral Tablet] 100 tablet 2 Sig: TAKE 1 TABLET BY MOUTH DAILY Provider: Jose Clarke DO Verified pharmacy: yes Verified day(s) supplied: yes Verified refill(s) needed (previous prescription showing no refills in chart): No - unable to verify prescription refills in chart Have you received any controlled medications from any other provider? No Overdue for visit: No If yes - patient scheduled? Yes Most recent labs completed in chart? N/A [id number] Miscellaneous Notes* Telephone Encounter - Anabela Bain MA - 02/28/2024 10:10 AM EDT Recent Visits Date Type Provider Dept 02/07/24 Office Visit Jose Clarke DO [facility] 11/08/23 Office Visit Jose Clarke DO [facility] 06/14/23 Office Visit Jose Clarke DO [facility] Showing recent visits within past 365 days and meeting all other requirements Future Appointments Date Type Provider Dept 05/22/24 Appointment Jose Clarke DO [facility] Showing future appointments within next 90 days and meeting all other requirements Requested Prescriptions Pending Prescriptions Disp Refills ezetimibe (Zetia) 10 MG tablet [Pharmacy Med Name: Ezetimibe 10 MG Oral Tablet] 100 tablet 2 Sig: TAKE 1 TABLET BY MOUTH DAILY Provider: Jose Clarke DO Verified pharmacy: yes Verified day(s) supplied: yes Verified refill(s) needed (previous prescription showing no refills in chart): No - unable to verify prescription refills in chart Have you received any controlled medications from any other provider? No Overdue for visit: No If yes - patient scheduled? Yes Most recent labs completed in chart? N/A documented in this [facility]04-22-2024 Telephone encounter Note* Telephone Encounter - Phyllis Haile - 02/13/2024 3:10 PM EDT Medication name: Lancets Medication dosage: Monthly quantity needed: How many day supply requestin days Medication route Medication administration time(s): If taking medication PRN, reason for taking medication: N/A If this is a controlled substance do you receive this or any other controlled medication from any other doctor or facility: N/A Ordering provider: historical Date of last office visit: 02/07/24 Date of next office visit: 05/22/24 Date of last refill: (see medication tab): historical Updated/Validated preferred pharmacy: Yes Patient instructed to contact the pharmacy prior to picking up the medication: Yes [place] [id number] Miscellaneous Notes* Telephone Encounter - Phyllis Haile - 02/13/2024 3:10 PM EDT Medication name: Lancets Medication dosage: Monthly quantity needed: How many day supply requestin days Medication route Medication administration time(s): If taking medication PRN, reason for taking medication: N/A If this is a controlled substance do you receive this or any other controlled medication from any other doctor or facility: N/A Ordering provider: historical Date of last office visit: 02/07/24 Date of next office visit: 05/22/24 Date of last refill: (see medication tab): historical Updated/Validated preferred pharmacy: Yes Patient instructed to contact the pharmacy prior to picking up the medication: Yes [place] [id number] Telephone encounter Note* Telephone Encounter - Phyllis Haile - 02/13/2024 3:04 PM EDT Message released to patient as written. yes Patient's further questions if applicable: no Were all questions from office addressed or relayed to the patient from encounter: Patient stated he will need new prescription with increased dose sent to [facility] for 90 days. [place] [id number] Miscellaneous Notes* Telephone Encounter - Phyllis Haile - 02/13/2024 3:04 PM EDT Message released to patient as written. yes Patient's further questions if applicable: no Were all questions from office addressed or relayed to the patient from encounter: Patient stated he will need new prescription with increased dose sent to [facility] for [facility] days. * Telephone Encounter - Julieta Fleming LPN - 02/13/2024 2:27 PM EDT LM - called to relay results * Telephone Encounter - Julieta Fleming LPN - 02/13/2024 2:26 PM EDT ----- Message from Kianna Newton MA sent at 02/13/2024 8:37 AM EDT ----- ----- Message ----- From: Jose Clarke DO Sent: 02/13/2024 8:34 AM EDT To: [facility] Clinical Resident Medical Officer Chemistry stable but hemoglobin A1c above goal of less than 8. He may need back on Lantus insulin again. For now increase glimepiride to 2 mg twice daily. He is to call with glucose levels in 1 month. Checkup in 3 months as directed [id number] Telephone encounter Note* Telephone Encounter - Julieta Fleming LPN - 02/13/2024 2:27 PM EDT LM - called to relay results [id number] Telephone encounter Note* Telephone Encounter - Julieta Fleming LPN - 02/13/2024 2:26 PM EDT ----- Message from Kianna Newton MA sent at 02/13/2024 8:37 AM EDT ----- ----- Message ----- From: Jose Clarke DO Sent: 02/13/2024 8:34 AM EDT To: [facility] Clinical Resident Medical Officer Chemistry stable but hemoglobin A1c above goal of less than 8. He may need back on Lantus insulin again. For now increase glimepiride to 2 mg twice daily. He is to call with glucose levels in 1 month. Checkup in 3 months as directed [place] [id number] Telephone encounter Note* Telephone Encounter - Yue Alcantara - 02/07/2024 3:51 PM EDT Orders pended for doctor signature [place] [id number] Miscellaneous Notes* Telephone Encounter - Yue Alcantara - 02/07/2024 3:51 PM EDT Orders pended for doctor signature [place] [id number] History of Present illness Narrative* Jose Clarke DO - 02/07/2024 11:00 AM EDT Images from the original note were not included. [facility] [address] [place] [address] [address] [facility] [id number] Visit type: Established Patient Reason for Visit: Follow-up (Med check ) Assessment / Plan: Brian was seen today for follow-up. Diagnoses and all orders for this visit: Type 2 diabetes mellitus with chronic kidney disease, without long-term current use of insulin, unspecified CKD stage (HCC) (Primary) - Comprehensive metabolic panel; Future - Hemoglobin A1c; Future - Comprehensive metabolic panel - Hemoglobin A1c Essential hypertension Chronic left-sided lumbar radiculopathy Skin lesion of hand Hypercholesterolemia with hypertriglyceridemia - Lipid panel; Future - Lipid panel Other orders - gabapentin (Neurontin) 300 MG capsule; Take 1 capsule (300 mg) by mouth 2 times daily for 60 doses. Take with 2 Acetaminophen 500mg along with Gabapentin BID Subjective: Patient ID: Brian Joshi is a 83 y.o. male. HPI well-controlled hypertensive diabetic with history of stable heart disease presents for follow-up on gabapentin therapy for chronic lumbar disc disease and radiculopathy. Has developed a dropfootfor a few years probably due to his lumbar spinal stenosis. He he remains very active enjoys hunting and and golfing without difficulty. Gabapentin has been effective Review of Systems glucose levels well. Recent blood pressure check at cardiology office well. Denies change in ENT. No cough or chest pain or palpitations. No PND orthopnea or edema. No abdominal pain. Bowels are regular on meds. Had a right hand contracture release per orthopedist in [place] about a year and a half ago. Now has developed a lesion on the palm of his hand that is slightly painful and recurrent No Known Allergies Current Outpatient Medications on File Prior to Visit Medication Sig Dispense Refill amLODIPine (Norvasc) 10 MG tablet Take 1 tablet (10 mg) by mouth daily. 90 tablet 1 Aspirin-Calcium Carbonate 81-777 MG tablet Take 81 mg by mouth in the morning. atorvastatin (Lipitor) 80 MG tablet Take 1 tablet (80 mg) by mouth daily. 90 tablet 3 chlorthalidone (Hygroton) 25 MG tablet Take 1 tablet (25 mg) by mouth daily. 90 tablet 1 ezetimibe (Zetia) 10 MG tablet Take 1 tablet (10 mg) by mouth daily. 90 tablet 1 glimepiride (Amaryl) 2 MG tablet Increase to 2 mg with breakfast and 1 mg (1/2 tab) with supper 135tablet 1 Glucose Blood (Blood Glucose Test) strip E11.9 Test 2 times a day & as needed for symptoms of irregular blood glucose. Dispense sufficient amount for indicated testing frequency plus additional to accommodate PRN testing needs. glucose blood (FREESTYLE LITE) test strip 1 each. hydrALAZINE (Apresoline) 25 MG tablet One tab TID 270 tablet 1 lisinopril 40 MG tablet Take 1 tablet (40 mg) by mouth daily. 90 tablet 1 nitroglycerin (Nitrostat) 0.[address] 0.3 mg under the tongue. [DISCONTINUED] gabapentin (Neurontin) 300 MG capsule Take 1 capsule (300 mg) by mouth 3 times dailyfor 60 doses. Take with 2 Acetaminophen 500mg along with Gabapentin BID 60 capsule 2 No current facility-administered medications on file prior to visit. Patient Active Problem List Diagnosis Essential hypertension CAD (coronary artery disease) Eczema Benign prostatic hyperplasia Hypercholesterolemia with hypertriglyceridemia Family history of colon cancer ED (erectile dysfunction) Type 2 diabetes mellitus with diabetic chronic kidney disease (HCC) Family history of prostate cancer Pacemaker Wears hearing aid in right ear Hx of fracture of left hip Chronic left-sided lumbar radiculopathy Acquired left foot drop Social History Tobacco Use Smoking status: Never Smokeless tobacco: Never Substance Use Topics Alcohol use: No Alcohol/week: 0.0 standard drinks of alcohol Past Surgical History: Procedure Laterality Date CARDIAC PACEMAKER PLACEMENT 12/2017 [facility] / Black CATARACT EXTRACTION Bilateral COLONOSCOPY 2004 Ahmed COLONOSCOPY 2014 Marshal- defers rech CORONARY ANGIOPLASTY WITH STENT PLACEMENT 03/2010 LAD coronary stent CYSTOSCOPY 08/2022 [facility] [place] HAND CONTRACTURE RELEASE Right 08/2022 Dr. Forde PARTIAL HIP ARTHROPLASTY Left 08/2022 Dr. Forde TRANSURETHRAL RESECTION OF PROSTATE 07/2020 Dr Costa Family History Problem Relation Name Age of Onset Colon cancer Mother age 82 Coronary artery disease Father [place], age 57 No Known Problems Sister Diabetes Sister Hypertension Brother Arthur Prostate cancer Brother Arthur 74 alive age 79 No Known Problems Brother Ramon in ECF, alive age 88 Prostate cancer Brother pastor pedraza 70 Dementia Brother pastor pedraza in ECF age 91 Objective: BP 136/78 Pulse 68 Temp 36.5 C (97.7 F) (Temporal) Ht 6' (1.829 m) Wt 181 lb (82.1 kg) SpO2 95% BMI 24.55 kg/m Physical Exam pleasant cooperative. Blood pressure recheck stable. Negative ENT. No carotid bruits.No neck masses or adenopathy. Heart is regular without ectopy or new murmurs. Lungs are clear. Abdomen soft nontender without pain hepatosplenomegaly or masses. Does have bilateral flank bruits. Femoral and pedal pulses are adequate. There remains a left foot drop there is moderate least severe Has a 1 cm raised irregular lesion in the palm of his hand. Possible pyogenic granuloma or squamouscell. documented in this [facility]03-29-2024 Evaluation note* Diagnosis Chronic kidney disease, stage 3a (HCC)- Primary Secondary hyperparathyroidism of renal origin (HCC) Secondary hyperparathyroidism (of renal origin) documented in this encounter [id number] Telephone encounter Note* Telephone Encounter - Rob Coombs - 12/21/2023 8:24 AM EST Medication name: ezetimibe (Zetia) tablet Medication dosage: 10 mg (Miligrams Monthly quantity needed: 30 How many day supply requestin days Medication route: oral (PO) Medication administration time(s): daily If taking medication PRN, reason for taking medication: N/A If this is a controlled substance do you receive this or any other controlled medication from any other doctor or facility: N/A Ordering provider: Evy Date of last office visit: 06.14.2023 Date of next office visit: 02.07.2024 Date of last refill: (see medication tab): 06.22.2023 Updated/Validated preferred pharmacy: Yes Patient instructed to contact the pharmacy prior to picking up the medication: N/A [facility] [id number] Miscellaneous Notes* Telephone Encounter - Rob Coombs - 12/21/2023 8:24 AM EST Medication name: ezetimibe (Zetia) tablet Medication dosage: 10 mg (Miligrams Monthly quantity needed: 30 How many day supply requestin days Medication route: oral (PO) Medication administration time(s): daily If taking medication PRN, reason for taking medication: N/A If this is a controlled substance do you receive this or any other controlled medication from any other doctor or facility: N/A Ordering provider: Evy Date of last office visit: 06.14.2023 Date of next office visit: 02.07.2024 Date of last refill: (see medication tab): 06.22.2023 Updated/Validated preferred pharmacy: Yes Patient instructed to contact the pharmacy prior to picking up the medication: N/A documented [facility]02-21-2024 Telephone encounter Note* Telephone Encounter - Davida Moffett - 12/14/2023 9:36 AM EST Ordering provider: Tiana Clarke Date of last office visit: 11/08/23 Date of next office visit: 02/07/24 Updated/Validated preferred pharmacy: Yes Patient instructed to contact the pharmacy prior to picking up the medication: Yes (1) Medication name: lisinopril 40 MG tablet Medication dosage: 40 mg tablet Monthly quantity needed: 30 How many day supply requestin days Medication route: oral (PO) Medication administration time(s): daily If taking medication PRN, reason for taking medication: N/A If this is a controlled substance do you receive this or any other controlled medication from any other doctor or facility: No Date of last refill (see medication tab): 08/07/23 (2) Medication name: ezetimibe (Zetia) 10 MG tablet Medication dosage: 10 mg tablet Monthly quantity needed: 30 How many day supply requestin days Medication route: oral (PO) Medication administration time(s): daily If taking medication PRN, reason for taking medication: N/A If this is a controlled substance do you receive this or any other controlled medication from any other doctor or facility: No Date of last refill (see medication tab): 06/22/23 (3) Medication name: hydrALAZINE (Apresoline) 25 MG tablet Medication dosage: 25 mg tablet Monthly quantity needed: 30 How many day supply requestin days Medication route: oral (PO) Medication administration time(s): daily If taking medication PRN, reason for taking medication: N/A If this is a controlled substance do you receive this or any other controlled medication from any other doctor or facility: No Date of last refill (see medication tab): 06/20/23 (4) Medication name: atorvastatin (Lipitor) 80 MG tablet Medication dosage: 80 mg tablet Monthly quantity needed: 30 How many day supply requestin days Medication route: oral (PO) Medication administration time(s): daily If taking medication PRN, reason for taking medication: N/A If this is a controlled substance do you receive this or any other controlled medication from any other doctor or facility: No Date of last refill (see medication tab): 08/07/23 (5) Medication name: chlorthalidone (Hygroton) 25 MG tablet Medication dosage: 25 mg tablet Monthly quantity needed: 30 How many day supply requestin days Medication route: oral (PO) Medication administration time(s): daily If taking medication PRN, reason for taking medication: N/A If this is a controlled substance do you receive this or any other controlled medication from any other doctor or facility: No Date of last refill (see medication tab): 08/07/23 5) Medication name: amLODIPine (Norvasc) 10 MG tablet Order Details Medication dosage: 10 mg tablet Monthly quantity needed: 30 How many day supply requestin days Medication route: oral (PO) Medication administration time(s): daily If taking medication PRN, reason for taking medication: N/A If this is a controlled substance do you receive this or any other controlled medication from any other doctor or facility: No Date of last refill (see medication tab): 08/07/23 [facility] [id number] Miscellaneous Notes* Telephone Encounter - Davida Moffett - 12/14/2023 9:36 AM EST Ordering provider: Tiana Clarke Date of last office visit: 11/08/23 Date of next office visit: 02/07/24 Updated/Validated preferred pharmacy: Yes Patient instructed to contact the pharmacy prior to picking up the medication: Yes (1) Medication name: lisinopril 40 MG tablet Medication dosage: 40 mg tablet Monthly quantity needed: 30 How many day supply requestin days Medication route: oral (PO) Medication administration time(s): daily If taking medication PRN, reason for taking medication: N/A If this is a controlled substance do you receive this or any other controlled medication from any other doctor or facility: No Date of last refill (see medication tab): 08/07/23 (2) Medication name: ezetimibe (Zetia) 10 MG tablet Medication dosage: 10 mg tablet Monthly quantity needed: 30 How many day supply requestin days Medication route: oral (PO) Medication administration time(s): daily If taking medication PRN, reason for taking medication: N/A If this is a controlled substance do you receive this or any other controlled medication from any other doctor or facility: No Date of last refill (see medication tab): 06/22/23 (3) Medication name: hydrALAZINE (Apresoline) 25 MG tablet Medication dosage: 25 mg tablet Monthly quantity needed: 30 How many day supply requestin days Medication route: oral (PO) Medication administration time(s): daily If taking medication PRN, reason for taking medication: N/A If this is a controlled substance do you receive this or any other controlled medication from any other doctor or facility: No Date of last refill (see medication tab): 06/20/23 (4) Medication name: atorvastatin (Lipitor) 80 MG tablet Medication dosage: 80 mg tablet Monthly quantity needed: 30 How many day supply requestin days Medication route: oral (PO) Medication administration time(s): daily If taking medication PRN, reason for taking medication: N/A If this is a controlled substance do you receive this or any other controlled medication from any other doctor or facility: No Date of last refill (see medication tab): 08/07/23 (5) Medication name: chlorthalidone (Hygroton) 25 MG tablet Medication dosage: 25 mg tablet Monthly quantity needed: 30 How many day supply requestin days Medication route: oral (PO) Medication administration time(s): daily If taking medication PRN, reason for taking medication: N/A If this is a controlled substance do you receive this or any other controlled medication from any other doctor or facility: No Date of last refill (see medication tab): 08/07/23 5) Medication name: amLODIPine (Norvasc) 10 MG tablet Order Details Medication dosage: 10 mg tablet Monthly quantity needed: 30 How many day supply requestin days Medication route: oral (PO) Medication administration time(s): daily If taking medication PRN, reason for taking medication: N/A If this is a controlled substance do you receive this or any other controlled medication from any other doctor or facility: No Date of last refill (see medication tab): 08/07/[address] [facility]01-16-2024 History of Present illness Narrative* Jose Clarke, DO - 11/08/2023 8:30 AM EST Images from the original note were not included. [facility] [address] [place] [address] [address] [facility] [id number] Visit type: Established Patient Reason for Visit: Follow-up (4 month med check) Assessment / Plan: Brian was seen today for follow-up. Diagnoses and all orders for this visit: Type 2 diabetes mellitus with chronic kidney disease, without long-term current use of insulin, unspecified CKD stage (HCC) (Primary) Comments: Stable, continue glimepiride and calorie restriction Orders: - Basic metabolic panel; Future - Lipid panel; Future - Hemoglobin A1c; Future - Basic metabolic panel - Lipid panel - Hemoglobin A1c Essential hypertension Comments: Very stable continue lisinopril, hydralazine, chlorthalidone, and amlodipine Stage 3b chronic kidney disease (HCC) Hypercholesterolemia with hypertriglyceridemia Comments: Stable, continue Zetia and Lipitor 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 Chronic left-sided lumbar radiculopathy Lumbar degenerative disc disease Comments: Worsening pain, risk and benefits of gabapentin discussed. Other orders - gabapentin (Neurontin) 300 MG capsule; Take 1 capsule (300 mg) by mouth 3 times daily for 60 doses. Take with 2 Acetaminophen 500mg along with Gabapentin BID Subjective: Patient ID: Brian Joshi is a 83 y.o. male. HPI well-controlled type II diabetic with history of hypertension, renal failure, coronary disease and severe lumbar disc disease presents for checkup. Recent nephrology notes reviewed. Slight elevated creatinine but he had just had a bout of diarrhea. Overall feeling well. Glucose levels are excellent. Added Zetia to Lipitor last office visit. No concerns on that med. Having worsening lumbar pain. History of severe degenerative disc disease with left foot drop probably from radiculopathy. No recent falls or injury. Review of Systems denies recent earache sore throat or cough. Needs RSV vaccination. Non-smoker drinker. No exertional chest pain but does have some dyspnea on exertion. That is unchanged. Cardiologyaware of the severity. No cough phlegm or wheezing. No heartburn or dysphagia. No abdominal pain. Bowels are back to normal. Question of melena a month ago. No dysuria hematuria. Pain is deep in his back. Minimal sciatica to left. Left foot drop is chronic and unchanged. No bowel or bladder incontinence. No right-sided leg symptoms No Known Allergies Current Outpatient Medications on File Prior to Visit Medication Sig Dispense Refill amLODIPine (Norvasc) 10 MG tablet TAKE 1 TABLET BY MOUTH DAILY 90 tablet 3 Aspirin-Calcium Carbonate 81-777 MG tablet Take 81 mg by mouth in the morning. atorvastatin (Lipitor) 80 MG tablet TAKE 1 TABLET BY MOUTH ONCE DAILY 90 tablet 3 chlorthalidone (Hygroton) 25 MG tablet TAKE 1 TABLET BY MOUTH DAILY 90 tablet 3 ezetimibe (Zetia) 10 MG tablet Take 1 tablet (10 mg) by mouth daily. 90 tablet 3 glimepiride (Amaryl) 1 MG tablet Increase to 1 mg with breakfast and 1mg with supper 28 tablet 0 Glucose Blood (Blood Glucose Test) strip E11.9 Test 2 times a day & as needed for symptoms of irregular blood glucose. Dispense sufficient amount for indicated testing frequency plus additional to accommodate PRN testing needs. glucose blood (FREESTYLE LITE) test strip 1 each. hydrALAZINE (Apresoline) 25 MG tablet One tab TID 270 tablet 1 lisinopril 40 MG tablet TAKE 1 TABLET BY MOUTH DAILY 90 tablet 3 nitroglycerin (Nitrostat) 0.[address] 0.3 mg under the tongue. [DISCONTINUED] glimepiride (Amaryl) 1 MG tablet Increase to 1 mg with breakfast and 1mg with supper(Patient not taking: Reported on 11/08/2023) 180 tablet 1 No current facility-administered medications on file prior to visit. Patient Active Problem List Diagnosis Essential hypertension CAD (coronary artery disease) Eczema Benign prostatic hyperplasia Hypercholesterolemia with hypertriglyceridemia Family history of colon cancer ED (erectile dysfunction) Type 2 diabetes mellitus with diabetic chronic kidney disease (HCC) Family history of prostate cancer Pacemaker Wears hearing aid in right ear Hx of fracture of left hip Chronic left-sided lumbar radiculopathy Acquired left foot drop Social History Tobacco Use Smoking status: Never Smokeless tobacco: Never Substance Use Topics Alcohol use: No Alcohol/week: 0.0 standard drinks of alcohol Past Surgical History: Procedure Laterality Date CARDIAC PACEMAKER PLACEMENT 12/2017 Koffi / Black CATARACT EXTRACTION Bilateral COLONOSCOPY 2004 Ahmed COLONOSCOPY 2014 Marshal- defers rech CORONARY ANGIOPLASTY WITH STENT PLACEMENT 03/2010 LAD coronary stent CYSTOSCOPY 08/2022 [place] HAND CONTRACTURE RELEASE Right 08/2022 Dr. Forde PARTIAL HIP ARTHROPLASTY Left 08/2022 Dr. Forde TRANSURETHRAL RESECTION OF PROSTATE 07/2020 Dr Costa Family History Problem Relation Name Age of Onset Colon cancer Mother age 82 Coronary artery disease Father [place], age 57 No Known Problems Sister Diabetes Sister Hypertension Brother Arthur Prostate cancer Brother Arthur 74 alive age 79 No Known Problems Brother Ramon in ECF, alive age 88 Prostate cancer Brother pastor pedraza 70 Dementia Brother pastor pedraza in ECF age 91 Objective: BP 123/60 Pulse 91 Temp 36.8 C (98.2 F) (Temporal) Ht 6' (1.829 m) Wt 177 lb (80.3 kg) SpO2 97% BMI 24.01 kg/m Physical Exam very pleasant cooperative. Well-hydrated. Blood pressure stable. Normal oropharynx and nonicteric. No neck masses JVD adenopathy or carotid bruits. Heart is regular without gallops murmurs or ectopy. Lungs are clear. Abdomen soft nontender without pain hepatosplenomegaly masses bruitsor ascites. Femoral pulses are fair. Negative straight leg raising bilaterally. Hip range of motion is fair. He has a chronic left foot drop which is unchanged. No other motor loss with thigh flexors abductors or abductors or leg extensors. Right foot exam is normal. Posterior tibial pulses are adequate. documented [facility] this [facility]08-28-2023 Telephone encounter Note* Telephone Encounter - Madhuri Robison LPN - 06/20/2023 1:09 PM EDT Rx loaded [id number] Miscellaneous Notes* Telephone Encounter - Madhuri Robison LPN - 06/20/2023 1:09 PM EDT Rx loaded Next ov 10/06/23 * Telephone Encounter - Tonia Lance - 06/20/2023 9:21 AM EDT Ordering provider: Jose Clarke Date of last office visit: 06/14/23 Date of next office visit: 10/06/23 Updated/Validated preferred pharmacy: Yes [facility] - [place], [place] Patient instructed to contact the pharmacy prior to picking up the medication: N/A (1) Medication name: hydrALAZINE (Apresoline) Medication dosage: 25 mg (Miligrams Monthly quantity needed: 90 How many day supply requestin days Medication route: oral (PO) Medication administration time(s): 3 times a day (TID) If taking medication PRN, reason for taking medication: N/A If this is a controlled substance do you receive this or any other controlled medication from any other doctor or facility: N/A Date of last refill (see medication tab): 02/14/23 documented in this [place] [id number] Telephone encounter Note* Telephone Encounter - Madhuri Robison LPN - 06/20/2023 9:29 AM EDT Rx loaded For mail pharmacy Next ov 10/06/23 [place] [id number] Miscellaneous Notes* Telephone Encounter - Madhuri Robison LPN - 06/20/2023 9:29 AM EDT Rx loaded For mail pharmacy Next ov 10/06/23 documented in this [address]28-2023 Telephone encounter Note* Telephone Encounter - Madhuri Robison LPN - 06/20/2023 9:28 AM EDT Rx loaded For short fill to local pharmacy [id number] Miscellaneous Notes* Telephone Encounter - Madhuri Robison LPN - 06/20/2023 9:28 AM EDT Rx loaded For short fill to local pharmacy * Telephone Encounter - Tonia Lance - 06/20/2023 9:11 AM EDT Patient completely out of Glimepiride. Pharmacy told patient they sent request. I advised patient we do not accept requests from pharmacy. Therefore patient needs emergency supply sent to [facility] with a 90 day supply sent to [facility]. Ordering provider: Jose Clarke Date of last office visit: 06/14/23 Date of next office visit: 10/06/23 Updated/Validated preferred pharmacy: [facility] for Emergency Supply of 15 tablets. [facility] [place] for a 90 day supply Patient instructed to contact the pharmacy prior to picking up the medication: N/A (1) Medication name: glimepiride (Amaryl) Medication dosage: 1 mg (Miligrams Monthly quantity needed: 16 for [facility] 60 for [facility] [place] How many day supply requestin days for [facility] script 90 days for [facility] Medication route: Oral Medication administration time(s): 2 times a day (BID) 1 mg at Breakfast and 1 mg at Supper If taking medication PRN, reason for taking medication: N/A If this is a controlled substance do you receive this or any other controlled medication from any other doctor or facility: No Date of last refill (see medication tab): 02/16/[address] [facility]08-28-2023 Telephone encounter Note* Telephone Encounter - Tonia Lance - 06/20/2023 9:21 AM EDT Ordering provider: Jose Clarke Date of last office visit: 06/14/23 Date of next office visit: 10/06/23 Updated/Validated preferred pharmacy: Yes [facility] - [place], [place] Patient instructed to contact the pharmacy prior to picking up the medication: N/A (1) Medication name: hydrALAZINE (Apresoline) Medication dosage: 25 mg (Miligrams Monthly quantity needed: 90 How many day supply requestin days Medication route: oral (PO) Medication administration time(s): 3 times a day (TID) If taking medication PRN, reason for taking medication: N/A If this is a controlled substance do you receive this or any other controlled medication from any other doctor or facility: N/A Date of last refill (see medication tab): 02/14/23 [facility] [id number] Telephone encounter Note* Telephone Encounter - Tonia Lance - 06/20/2023 9:11 AM EDT Patient completely out of Glimepiride. Pharmacy told patient they sent request. I advised patient we do not accept requests from pharmacy. Therefore patient needs emergency supply sent to [facility] with a 90 day supply sent to [facility]. Ordering provider: Jose Clarke Date of last office visit: 06/14/23 Date of next office visit: 10/06/23 Updated/Validated preferred pharmacy: [facility] for Emergency Supply of 15 tablets. [facility] [place], [place] for a 90 day supply Patient instructed to contact the pharmacy prior to picking up the medication: N/A (1) Medication name: glimepiride (Amaryl) Medication dosage: 1 mg (Miligrams Monthly quantity needed: 16 for [facility] 60 for [facility] [place] How many day supply requestin days for [facility] script 90 days for [facility] Medication route: Oral Medication administration time(s): 2 times a day (BID) 1 mg at Breakfast and 1 mg at Supper If taking medication PRN, reason for taking medication: N/A If this is a controlled substance do you receive this or any other controlled medication from any other doctor or facility: No Date of last refill (see medication tab): 02/16/23 [place] [id number] Telephone encounter Note* Telephone Encounter - Paulette Pike MA - 05/19/2023 11:27 AM EDT Requested Prescriptions Pending Prescriptions Disp Refills lisinopril 40 MG tablet [Pharmacy Med Name: Lisinopril 40 MG Oral Tablet] 90 tablet 3 Sig: TAKE 1 TABLET BY MOUTH DAILY amLODIPine (Norvasc) 10 MG tablet [Pharmacy Med Name: amLODIPine Besylate 10 MG Oral Tablet] 90 tablet 3 Sig: TAKE 1 TABLET BY MOUTH DAILY atorvastatin (Lipitor) 80 MG tablet [Pharmacy Med Name: Atorvastatin Calcium 80 MG Oral Tablet] 90 tablet 3 Sig: TAKE 1 TABLET BY MOUTH DAILY chlorthalidone (Hygroton) 25 MG tablet [Pharmacy Med Name: Chlorthalidone 25 MG Oral Tablet] 90 tablet 3 Sig: TAKE 1 TABLET BY MOUTH DAILY Last appt - 02/14/2023 Next appt - [facility]14/2023 [id number] Miscellaneous Notes* Telephone Encounter - Paulette Pike MA - 05/19/2023 11:27 AM EDT Requested Prescriptions Pending Prescriptions Disp Refills lisinopril 40 MG tablet [Pharmacy Med Name: Lisinopril 40 MG Oral Tablet] 90 tablet 3 Sig: TAKE 1 TABLET BY MOUTH DAILY amLODIPine (Norvasc) 10 MG tablet [Pharmacy Med Name: amLODIPine Besylate 10 MG Oral Tablet] 90 tablet 3 Sig: TAKE 1 TABLET BY MOUTH DAILY atorvastatin (Lipitor) 80 MG tablet [Pharmacy Med Name: Atorvastatin Calcium 80 MG Oral Tablet] 90 tablet 3 Sig: TAKE 1 TABLET BY MOUTH DAILY chlorthalidone (Hygroton) 25 MG tablet [Pharmacy Med Name: Chlorthalidone 25 MG Oral Tablet] 90 tablet 3 Sig: TAKE 1 TABLET BY MOUTH DAILY Last appt - 02/14/2023 Next appt - 06/14/[address] [facility]04-24-2023 History of Present illness Narrative* Jose Clarke DO - 02/14/2023 12:30 PM EDT Images from the original note were not included. [facility] [address] [facility] [address] Visit type: Established Patient Reason for Visit: ER Follow-up (For dehydration) Assessment / Plan: Brian was seen today for er follow-up. Diagnoses and all orders for this visit: Acquired left foot drop (Primary) Comments: New onset, continue PT. He defers CT imaging. Ankle-foot orthotic prescribed 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 Comments: Stable, continue current hypertensive meds atorvastatin and aspirin Stage 3a chronic kidney disease (HCC) Essential hypertension Comments: Well-controlled, continue hydralazine, lisinopril, chlorthalidone and amlodipine Type 2 diabetes mellitus with chronic kidney disease, without long-term current use of insulin, unspecified CKD stage (HCC) Comments: Stable, continue glimepiride Orders: - Basic metabolic panel; Future - Hemoglobin A1c; Future - Basic metabolic panel - Hemoglobin A1c Chronic left-sided lumbar radiculopathy Other orders - hydrALAZINE (Apresoline) 25 MG tablet; One tab TID 32 minutes reviewing recent ER reports. Patient interview exam and discussion of diagnosis and prescription options. He is deferring CT of the spine. We will continue therapy we will recheck in the office in 6 weeks. He is to call with any progressive weakness of his leg or foot. Subjective: Patient ID: Brian Joshi is a 82 y.o. male. HPI well-controlled type II diabetic hypertensive with history of renal insufficiency and coronary disease presents to the office after being evaluated in the ER for recent lightheadedness. Some acute kidney injury upon chronic renal failure and he was encouraged to stop Lasix which was prescribed per Dr. Vines for prevention of heart failure. Patient has stopped that med and feeling better. Has chronic renal failure with increased creatinine. No recurrent dyspnea, PND orthopnea or edema. He feels better at this time. Review of Systems of note getting physical therapy for his left hip and also complains of left thigh and calf pain. No worsening low back pain. History of lumbar arthritis years ago. No hypoglycemic episodes. No use of nitro. No change in vision. Denies exertional chest pain jaw pain or arm pain. No palpitations PND orthopnea or edema. No vomiting or diarrhea. No dysuria. Left lower extremity physical therapy is going well. No Known Allergies Current Outpatient Medications on File Prior to Visit Medication Sig Dispense Refill amLODIPine (Norvasc) 10 MG tablet Take 1 tablet (10 mg) by mouth daily. 90 tablet 0 Aspirin-Calcium Carbonate 81-777 MG tablet Take 81 mg by mouth in the morning. atorvastatin (Lipitor) 80 MG tablet Take 1 tablet (80 mg) by mouth daily. 90 tablet 0 chlorthalidone (Hygroton) 25 MG tablet Take 1 tablet (25 mg) by mouth daily. 90 tablet 0 glimepiride (Amaryl) 1 MG tablet Decrease to 1/2 tablet in the am and 1 tablet in the evening 137 tablet 0 Glucose Blood (Blood Glucose Test) strip E11.9 Test 2 times a day & as needed for symptoms of irregular blood glucose. Dispense sufficient amount for indicated testing frequency plus additional to accommodate PRN testing needs. glucose blood (FREESTYLE LITE) test strip 1 each. lisinopril 40 MG tablet Take 1 tablet (40 mg) by mouth daily. 90 tablet 0 nitroglycerin (Nitrostat) 0.[address] 0.3 mg under the tongue. [DISCONTINUED] hydrALAZINE (Apresoline) 25 MG tablet One tab TID 279 tablet 1 [DISCONTINUED] polyethylene glycol, PEG, 3350 (Glycolax) 17 GM/SCOOP powder Take by mouth. [DISCONTINUED] potassium chloride CR (Klor-Con M20) 20 MEQ ER tablet No current facility-administered medications on file prior to visit. Patient Active Problem List Diagnosis Essential hypertension Chronic renal disease, stage III (HCC) Chronic renal failure, stage 3 (moderate) (HCC) CAD (coronary artery disease) Eczema Benign prostatic hyperplasia Hypercholesterolemia with hypertriglyceridemia Family history of colon cancer ED (erectile dysfunction) Type 2 diabetes mellitus with diabetic chronic kidney disease (HCC) Family history of prostate cancer Pacemaker Wears hearing aid in right ear Hx of fracture of left hip Chronic left-sided lumbar radiculopathy Acquired left foot drop Social History Tobacco Use Smoking status: Never Smokeless tobacco: Never Substance Use Topics Alcohol use: No Alcohol/week: 0.0 standard drinks Past Surgical History: Procedure Laterality Date CARDIAC PACEMAKER PLACEMENT 12/2017 Koffi / Black CATARACT EXTRACTION Bilateral bilat cataracts COLONOSCOPY 10/2004 Ahmed COLONOSCOPY 03/2015 Marshal- due 2020 CORONARY ANGIOPLASTY WITH STENT PLACEMENT 03/2010 LAD coronary stent CYSTOSCOPY 08/2022 Dr. Costa, [place] HAND CONTRACTURE RELEASE Right 08/2022 Dr. Forde PARTIAL HIP ARTHROPLASTY Left 08/2022 Dr. Forde TRANSURETHRAL RESECTION OF PROSTATE 07/2020 Dr Costa Family History Problem Relation Name Age of Onset Colon cancer Mother age 82 Coronary artery disease Father [place], age 57 No Known Problems Sister Diabetes Sister Hypertension Brother Arthur Prostate cancer Brother Arthur 74 No Known Problems Brother Ramon older Prostate cancer Brother pastor pedraza 70 Objective: BP 134/65 Pulse 70 Temp 36.9 C (98.4 F) (Temporal) Ht 6' (1.829 m) Wt 174 lb (78.9 kg) SpO2 98% BMI 23.60 kg/m Physical Exam alert and cooperative. Recheck blood pressure excellent. No JVD adenopathy or carotidbruits. Nonicteric. Well-hydrated. Heart is regular without faint murmur change. No gallops or ectopy. Lungs are clear. Abdomen soft nontender without pain. Today he has a moderately severe left foot drop with weakness with dorsiflexion and foot eversion. Toes downgoing. No clonus. He can walk on his tippy toes but cannot walk on his heels. Nontender spine. Posterior tibial pulses are excellent. documented [facility] this [facility]04-24-2023 Instructions* Patient Instructions* Jose Clarke DO - 02/14/2023 12:30 PM EDT Obtain left ankle-foot orthotic from physical therapist documented [facility] this [facility]04-05-2023 Evaluation note* Diagnosis Chronic kidney disease, stage 3a (HCC)- Primary Secondary hyperparathyroidism of renal origin (HCC) Secondary hyperparathyroidism (of renal origin) [id number] Telephone encounter Note* Telephone Encounter - Catalina Llanes RN - 12/06/2022 10:33 AM EST [id number] Miscellaneous Notes* Telephone Encounter - Catalina Llanes RN - 12/06/2022 10:33 AM EST Rx loaded * Telephone Encounter - Caroline Olivas - 12/06/2022 9:51 AM EST Name of caller: Brian Contact phone number: [phone] Relationship to Patient: patient Provider: Dr. Clarke Practice: [facility] [place] Chief Complaint/Reason for Call: Pt is requesting refills on glimepiride (Amaryl) 1 MG tablet lisinopril 40 MG tablet chlorthalidone (Hygroton) 25 MG tablet amLODIPine (Norvasc) 10 MG tablet atorvastatin (Lipitor) 80 MG tablet Pt should have 1 refills left on all these I explained to pt and pt states we need to call the pharmacy. He calls us and we send it in. Pt also was saying the glimepiride (Amaryl) 1 MG tablet needs to be changed takes 1/2 pill in the morning and 1 pills in the evening because sugar is high. Please Advise. [facility] is who pt is wanting us to call. Thank you Best time of day caller can be reached: AM Patient advised that office/PCP has 24-48 business hours to return their call: N/A [id number] Telephone encounter Note* Telephone Encounter - Caroline Olivas - 12/06/2022 9:51 AM EST Name of caller: Brian Contact phone number: [phone] Relationship to Patient: patient Provider: Dr. Clarke Practice: [facility] Chief Complaint/Reason for Call: Pt is requesting refills on glimepiride (Amaryl) 1 MG tablet lisinopril 40 MG tablet chlorthalidone (Hygroton) 25 MG tablet amLODIPine (Norvasc) 10 MG tablet atorvastatin (Lipitor) 80 MG tablet Pt should have 1 refills left on all these I explained to pt and pt states we need to call the pharmacy. He calls us and we send it in. Pt also was saying the glimepiride (Amaryl) 1 MG tablet needs to be changed takes 1/2 pill in the morning and 1 pills in the evening because sugar is high. Please Advise. [facility] is who pt is wanting us to call. Thank you Best time of day caller can be reached: AM Patient advised that office/PCP has 24-48 business hours to return their call: N/A [facility]11-21-2022 Hospital Discharge instructions Additional Instructions Discharge home with family 09/13/2022, [facility] PT/OT/SN.[facility] Work Phone: Evaluation note* Diagnosis Pneumonia of right lower lobe due to infectious organism- Primary Septicemia (HCC) Unspecified septicemia Renal insufficiency Unspecified disorder of kidney and ureter Type 2 diabetes mellitus with other specified complication, unspecified whether half-way insulin use (HCC) documented in this encounter [facility] Work Phone: Evaluation note* Diagnosis Acute hip pain, left Acute left-sided low back pain with left-sided sciatica documented in this encounter [facility] Work Phone: Evaluation noteNo assessment information available [facility] Work Phone: Evaluation note* Diagnosis Onset Date Resolution Status Closed fracture of left hip acute Fall acute Status post placement of cardiac pacemaker chronic [facility] Work Phone: Evaluation note* Diagnosis Onset Date Resolution Status Bladder neck contracture acu te Closed fracture of left hip acute Fall acute 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 Chronic kidney disease, stage 3b acute Closed fracture of left hip acute Coronary artery disease acut e Debility acute Diabetes mellitus acute Hyperlipidemia acute HTN (hypertension) chronic [facility] Work Phone: Evaluation note* Diagnosis Acquired left foot drop- Primary 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 Stage 3a chronic kidney disease (HCC) Essential hypertension Unspecified essential hypertension Type 2 diabetes mellitus with chronic kidney disease, without long-term current use of insulin, unspecified CKD stage (HCC) Chronic left-sided lumbar radiculopathy [facility] Diagnosis Type 2 diabetes mellitus with chronic kidney disease, without long-term current use of insulin, unspecified CKD stage (HCC)- Primary Essential hypertension Unspecified essential hypertension Stage 3b chronic kidney disease (HCC) Hypercholesterolemia with hypertriglyceridemia 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 Chronic left-sided lumbar radiculopathy Lumbar degenerative disc disease [facility] Diagnosis Skin lesion of hand- Primary Unspecified disorder of skin and subcutaneous tissue [facility] Diagnosis Type 2 diabetes mellitus with chronic kidney disease, without long-term current use of insulin, unspecified CKD stage (HCC)- Primary Essential hypertension Unspecified essential hypertension Chronic left-sided lumbar radiculopathy Skin lesion of hand Unspecified disorder of skin and subcutaneous tissue Hypercholesterolemia with hypertriglyceridemia [facility] Diagnosis Encounter for subsequent annual wellness visit (AWV) in Medicare patient- Primary Essential hypertension Unspecified essential hypertension Hypercholesterolemia with hypertriglyceridemia 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 Type 2 diabetes mellitus with chronic kidney disease, without long-term current use of insulin, unspecified CKD stage (HCC) Routine general medical examination at health care facility Routine general medical examination at a health care facility [facility] Diagnosis Type 2 diabetes mellitus with stage 3b chronic kidney disease, without long-term current use of insulin (HCC)- Primary Hypercholesterolemia with hypertriglyceridemia Stage 3b chronic kidney disease (HCC) 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 Essential hypertension Unspecified essential hypertension Chronic left-sided lumbar radiculopathy Left foot drop Other acquired deformity of ankle and foot [facility] Diagnosis Adverse effect of oral hypoglycemic drug, initial encounter- Primary Type 2 diabetes mellitus with stage 3b chronic kidney disease, with long-term current use of insulin (HCC) [facility] Diagnosis Vertigo- Primary Dizziness and giddiness Essential hypertension Unspecified essential hypertension Stage 3b chronic kidney disease (HCC) 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 Hypercholesterolemia with hypertriglyceridemia Right thalamic stroke (HCC) Hypoglycemic event due to diabetes (HCC) Other constipation documented in this encounter [facility]* Diagnosis Type 2 diabetes mellitus with stage 3b chronic kidney disease, with long-term current use of insulin (HCC)- Primary 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 Essential hypertension Unspecified essential hypertension Hypercholesterolemia with hypertriglyceridemia 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 * Pneumonia (Hebrew) documented in this [facility] Work Phone: Hospital Discharge instructions Additional Instructions Plenty of fluids and rest. Hold the medication furosemide. Follow-up with either your primary care physician or Dr. Pastor Vines for further evaluation.[facility] Work Phone: Reason for referral (narrative)* Consultation (Routine) - Pending Review Specialty Diagnoses / Procedures Referred By Dioni hill Referred To Contact Orthodontics Diagnoses Skin lesion of hand Jose Clakre DO [address] [place] [address] Jaziel Forde DO [address] [facility] [address] [place] [address] Referral ID Status Reason Start Date Expiration Date Visits Requested Visits Authorized [id number] Pending Review Specialty Services Required 02/07/2024 02/06/2025 1 1 [facility] Summary Purpose Family History No Family History Records Found Relationship Condition Age at Onset Recorded Date/T hiwot mother Malignant neoplasm of colon Unknown father Cardiac disease Unknown Hypertension Unknown Myocardial infarction Unknown Coronary artery disease Unknown Advance Directives No Advanced Directives Records FoundDocuments on File Type Date Recorded Patient Grinder Hand Expl anation Advance Directives and Living Will Power of Courtroom Deputy Or Calendar Clerk Latest Code Status on File Code Status Date Activated Date Inactivated Comments Full Code 12/23/2017 11:02 AM 12/24/2017 6:01 PM Full Code 12/23/2017 7:59 AM 12/23/2017 11:02 AM Documents on File Type Date Recorded Patient Grinder Hand Expl anation ACP-Advance Directive ACP-Power of Courtroom Deputy Or Calendar Clerk Advance Directive Response Recorded Date/ Time Living Will Yes April 23, 2021 2 :58pm Power of Courtroom Deputy Or Calendar Clerk Yes April 23, 2021 2:58pm Advance Directive Response Recorded Date/ Time Living Will Yes August 28 4:38pm Power of Courtroom Deputy Or Calendar Clerk Yes August 28, 2022 4:38pm Name of Medical Power of Courtroom Deputy Or Calendar Clerk DAUGHTER August 28, 2022 4:38pm Advance Directive Response Recorded Date/ Time Name of Medical Power of Courtroom Deputy Or Calendar Clerk Paz Fonseca August 28, 2022 7:21pm Name of Medical Power of Courtroom Deputy Or Calendar Clerk Paz Fonseca, daughter September 03, 2022 10:23am Living Will Yes September 03, 10:23am Power of Courtroom Deputy Or Calendar Clerk Yes September 03, 2022 10:23am Documents on File Type Date Recorded Patient Grinder Hand Expl anation DNR (Do Not Resuscitate) 12/22/2015 Advance Directive Response Recorded Date/ Time Living Will Yes February 03, 2023 10:49am Power of Courtroom Deputy Or Calendar Clerk Yes February 03 10:49am Name of Medical Power of Courtroom Deputy Or Calendar Clerk PAZ FONSECA February 03, 2023 10:49am Documents on File Type Date Recorded Patient Grinder Hand Expl anation DNR (Do Not Resuscitate) 12/22/2015 Chief Complaint Chief Complaint Description Start Date left thumb finger Preliminary chief co mplaint data, not yet signed by the author as of Instructions Instruction Description Start Date CompletedPlease follow-up [facility] Phys[facility] or Glass Etcher for treatment or adjustment of medication regarding elevated blood pressure.Patient advised to follow-up with Primary Care Physician for BMI management. Assessments There may be information available, but it has not been provided by the sender. Review of System There may be information available, but it has not been provided by the sender. History of Present Illness There may be information available, but it has not been provided by the sender. Chief Complaint and Reason for Visit Chief Complaint DILATED CARIOMYOPATH Y Chief Complaint L HIP FRACTURE, FALL Reason for Visit Closed fracture of l eft hip Fall Status post placement of cardiac pacemaker Chief Complaint L HIP FRACTURE, FALL L HIP FRACTURE, FALL L HIP FRACTURE, FALL L HIP FRACTURE, FALL L HIP FRACTURE, FALL LEFT HIP FRACTURE Reason for Visit Bladder neck contrac ture Closed fracture of left hip Fall Status post placement of cardiac pacemaker Bladder neck contracture Chronic kidney disease, stage 3b Closed fracture of left hip Coronary artery disease Debility Diabetes mellitus Hyperlipidemia HTN (hypertension) Chief Complaint NEAR SYNCOPE Additional Source Comments (unrecognized sect ion and content) No Status Records FoundNo Status Records FoundNo Status Records FoundNo Status Records FoundNo Status Records Found INFORMATION SOURCE (unrecogn ized section and content) DATE CREATED AUTHOR 08/08/2018 [facility] [place] DATE CREATED AUTHOR AUTHOR'S ORGANIZ ATION 12/12/2018 [facility] [employer] DATE CREATED AUTHOR AUTHOR'S ORGANIZ ATION 03/12/2022 [facility] [employer] DATE CREATED AUTHOR AUTHOR'S ORGANIZ ATION 01/11/2025 [facility] DATE CREATED AUTHOR AUTHOR'S ORGANIZ ATION 04/09/2025 [facility] Reason for Visit (unrecogniz ed section and content) Reason For Visit Description New - 1st visit with practice Preliminary reason f or visit data, not yet signed by the author as of left thumb finger Reason Comments Fever Fatigue Reason Comments ER Follow-up For dehydration Reason Comments Med Refill Reason Onset Date Comments Med Refill 06/20/2023 Reason Onset Date Comments Med Refill 06/20/2023 Hydralazine Reason Onset Date Comments Med Refill 06/20/2023 Glimepiride (com pletely out) Reason Comments Follow-up 4 month med check Reason Onset Date Comments Med Refill 12/14/2023 Reason Onset Date Comments Med Refill 12/21/2023 Reason Onset Date Comments Orders 02/07/2024 Ortho referral Reason Comments Follow-up Med check Reason Onset Date Comments Med Refill 02/13/2024 Reason Onset Date Comments Medication Problem 04/03/2024 Reason Comments Medicare Annual Wellness Visit Subsequen t Reason Onset Date Comments Med Refill 07/12/2024 Reason Onset Date Comments Med Refill 09/17/2024 Reason Onset Date Comments Medication Problem 12/06/2022 Reason Comments Follow-up Med check Reason Onset Date Comments Results 11/05/2024 Reason Onset Date Comments Blood Sugar Problem 11/13/2024 Reason Comments Hospital Follow-up TOC_ dizzy and nause a Constipation Hasn't went in 4 day s Reason Onset Date Comments Medication Question 11/08/2024 Reason Onset Date Comments Medication Problem 02/11/2025 Scheduled Active and Recently Administ ered Medications (unrecognized section and content) Medication Order 04/21/2021 04/22/2021 04/23/2021 0.9 % sodium chloride bolus (COMPLETED) 1,000 mL (13 mL/kg), Intravenous, at 2,000 mL/hr, Administer over 0.5 Hours, ONCE, On Nadja 04/23/21 at 0916, For 1 dose 0936 (New Bag - Prov ider: Cleo Coombs, RN)1023 (Stopped - Provider: Cleo Coombs, RN) 0.9 % sodium chloride bolus (COMPLETED) 1,000 mL (13 mL/kg), Intravenous, at 2,000 mL/hr, Administer over 0.5 Hours, ONCE, On Nadja 04/23/21 at 1052, For 1 dose 1055 (New Bag - Prov ider: Cleo Coombs, RN)1254 (Stopped - Provider: Cleo Coombs, RN) azithromycin (ZITHROMAX) 500 mg in dextrose 5 % 250 mL IVPB (add-vantage) (COMPLETED) 500 mg, Intravenous, ONCE, 1 dose, On Nadja 04/23/21 at 1203 1206 (New Bag - Prov ider: Cleo Coombs, RN)1308 (Stopped - Provider: Cleo Coombs, RN) cefTRIAXone (ROCEPHIN) 1000 mg IVPB in NS 50ml minibag (COMPLETED) 1,000 mg, Intravenous, ONCE, 1 dose, On Nadja 04/23/21 at 1052 1055 (New Bag - Prov ider: Cleo Coombs, RN)1157 (Stopped - Provider: Cleo Coombs, RN) Care Teams (unrecognized sec tion and content) Medical Secretary Relationship Specialty Start Date End Date Jose Clarke DO [address] [place] [id number] PCP - General 03/27/15 Medical Secretary Relationship Specialty Start Date End Date Jose Clarke DO [address] [place] [address] PCP - General 10/24/18 Team Status: Active Member Role Status Dates Dr. Jose Clarke , Family Provider Active Dr. Jose Clarke , Primary Care Provider Active Team Status: Inactive Member Role Status Dates Dr. Jose Clarke , Primary Care Provider Active Dr. Ayaan Quesada MD Emergency Provider Active Medical Secretary Relationship Specialty Start Date End Date Jose Clarke, DO [address] [place] [address] PCP - General 10/24/18 Medical Secretary Relationship Specialty Start Date End Date Jose Clarke DO [address] [place] [address] PCP - General 10/24/18 Medical Secretary Relationship Specialty Start Date End Date Jose Clarke DO [address] [place] [address] PCP - General 10/24/18 Medical Secretary Relationship Specialty Start Date End Date Jose Clarke DO [address] [place] [address] PCP - General 10/24/18 Medical Secretary Relationship Specialty Start Date End Date Jose Clarke DO [address] [place] [address] PCP - General 10/24/18 Medical Secretary Relationship Specialty Start Date End Date Jose Clarke DO [address] [place] [address] PCP - General 10/24/18 Medical Secretary Relationship Specialty Start Date End Date Jose Clarke DO [address] [place] [address] [address] [place] [address] PCP - General 10/24/18 Medical Secretary Relationship Specialty Start Date End Date Evy Jose Payton, DO [address] [place] [address] PCP - General 10/24/18 Medical Secretary Relationship Specialty Start Date End Date Evy Jose Payton, DO [address] [place] [address] PCP - General 10/24/18 Medical Secretary Relationship Specialty Start Date End Date Evy Jose Payton, DO [address] [place] [address] PCP - General 10/24/18 Medical Secretary Relationship Specialty Start Date End Date Evy Jose Payton, DO [address] [place] [address] PCP - General 10/24/18 Medical Secretary Relationship Specialty Start Date End Date Evy Jose Payton, DO [address] [place] [address] PCP - General 10/24/18 Medical Secretary Relationship Specialty Start Date End Date Evy Jose Payton, DO [address] [place] [address] PCP - General 10/24/18 Medical Secretary Relationship Specialty Start Date End Date Evy Jose Payton, DO [address] [place] [address] PCP - General 10/24/18 Medical Secretary Relationship Specialty Start Date End Date Jose Clarke, DO [address] [place] [phone] PCP - General 10/24/18 Medical Secretary Relationship Specialty Start Date End Date Jose Clarke, DO [address] [place] [phone] PCP - General 10/24/18 Medical Secretary Relationship Specialty Start Date End Date Jose Clarke, DO [address] [place] [phone] PCP - General 10/24/18 Medical Secretary Relationship Specialty Start Date End Date Jose Clarke, DO [address] [place] [phone] PCP - General 10/24/18 Medical Secretary Relationship Specialty Start Date End Date Jose Clarke, DO [address] [place] [phone] PCP - General 10/24/18 Medical Secretary Relationship Specialty Start Date End Date Jose Clarke, DO [address] [place] [phone] PCP - General 10/24/18 Medical Secretary Relationship Specialty Start Date End Date Jose Clarke, DO [address] [place] [address] PCP - General 10/24/18 Medical Secretary Relationship Specialty Start Date End Date Jose Clarke, DO [address] [place] [phone] PCP - General 10/24/18 Medical Secretary Relationship Specialty Start Date End Date EvyJose, DO [address] [place] [address] PCP - General 10/24/18 Medical Secretary Relationship Specialty Start Date End Date Evy Jose Payton, DO [address] [place] [address] PCP - General 10/24/18 Medical Secretary Relationship Specialty Start Date End Date Jose Clarke Tata, DO [address] [place] [id number] PCP - General 10/24/18 Medical Secretary Relationship Specialty Start Date End Date Jose Clarke Tata, DO [address] [place] [phone] PCP - General 10/24/18 Medical Secretary Relationship Specialty Start Date End Date Evy Jose Payton, DO [address] [place] [address] PCP - General 10/24/18 Medical Secretary Relationship Specialty Start Date End Date Jose Clarke Tata, DO [address] [place] [address] PCP - General 10/24/18 Medical Secretary Relationship Specialty Start Date End Date Jose Clarke Tata, DO [address] [place] [phone] PCP - General 10/24/18 Medical Secretary Relationship Specialty Start Date End Date Jose Clarke DO [address] [facility] [address] [place] [address] PCP - General 10/24/18 Goals (unrecognized section and content) Goals may be documented in a n alternate sectionGoals may be documented in an alternate sectionGoals may be documented in an alternate section FOR RECORDS PERTAINING TO PATIENTS WHO ARE OR HAVE BEEN ENROLLED IN A CHEMICAL DEPENDENCY/SUBSTANCEABUSE PROGRAM, SOME INFORMATION MAY BE OMITTED. This clinical summary was aggregated from multiple sources. Caution should be exercised in using it in the provision of clinical care. This summary normalizes information from multiple sources, and as a consequence, information in this document may materially change the coding, format and clinical context of patient data. In addition, data may be omitted in some cases. CLINICAL DECISIONS SHOULD BE BASED ON THE PRIMARY CLINICAL RECORDS. [employer] [facility]. provides no warranty or guarantee of the accuracy or completeness of information in this document.
--- NOTE | 2025-04-28 11:30 | ED.VIS.FALL ---
HPI HPI - Fall History of Present Illness Chief Complaint: Fall Detail of Chief Complaint: Patient tripped on [facility] sidewalk and fell. He complains of pain right ing Informant: patient and family Occured/Mechanism Occurred: Today and Hours Mechanism/Context: Yes trip Narrative: HPI narrative Fall from Height (ft): Not applicable Fall down steps #: Not applicable Usually ambulates: Without assistance Pain/Injury Location: Right groin area. Patient states he was unable to get up. He was brought Pain Location: pelvis Quality of Pain: Dull and Aching Current Severity: Mild Maximum Severity: Severe Worsened by: Attempt to move right lower extremity Relieved by: Nothing Associated Symptoms Associated Symptoms: Positive for Loss of function and Inability to ambulate; Negative for Parasthesias, Weakness, Loss of consciousness or Amnesia Narrative Narrative: Patient is an 85-year-old male. He has history of CVA, stage III kidney disease, coronary disease, diabetes, hyperlipidemia, hypertension, pacemaker who had a closed left hip fracture repaired by Dr. Eula wilde 2 years ago. He presents after he tripped. He complains of pain in the right inguinal area. He was unable to get up. He had to roll over to onto his left side to diminish the pain. He denies paresthesia, anesthesia Medicus. Denies head trauma. Denies neck pain. He denies cardiac or respiratory symptoms. He denies having black or bloody stools. He is on no anticoagulant. Prior similar symptoms: Yes Recent Illness/Hospitalization: No PFSH PFS Medical History HLD (hyperlipidemia) Hypertension Stage 3b chronic kidney disease Coronary artery disease Benign prostatic hyperplasia Diabetes mellitus, type 2 Pacemaker Home Medications ?Medication ?Instructions ?Recorded ?Last Taken ?Type hydralazine 100 mg tablet 25 mg PO TID BP 12/16/16 08/28/22 07:00 History lisinopril 40 mg tablet 40 mg PO DAILY BP 06/13/20 08/28/22 07:00 History aspirin 81 mg tablet 81 mg PO DAILY Heart 04/23/21 08/28/22 07:00 History glimepiride 1 mg tablet 2 mg PO BID Diabetes 04/23/21 08/28/22 07:00 History atorvastatin 80 mg tablet 80 mg PO QHS HYPERLIPIDEMIA 08/28/22 08/27/22 18:00 History acetaminophen 500 mg tablet 1,000 mg (2 x 500 mg) PO Q8 pain 09/08/22 Unknown Rx #0 tabs amlodipine 10 mg tablet 10 mg PO DAILY blood pressure 30 09/08/22 Unknown Rx days #30 tabs chlorthalidone 25 mg tablet 25 mg PO DAILY 12/17/24 Unknown History ezetimibe 10 mg tablet 10 mg PO DAILY cholesterol 12/17/24 Unknown History insulin glargine 100 unit/mL (3 10 unit subcut DAILY diabetes 12/17/24 Unknown History mL) subcutaneous pen (Lantus Solostar U-100 Insulin) ondansetron 4 mg disintegrating 4 mg PO Q6H PRN PRN Nausea #15 tabs 12/17/24 Unknown Rx tablet Allergy/AdvReac Type Severity Reaction Status Date / Time No Known Allergies Allergy Verified 04/28/25 10:06 Family History Mother Colon cancer Diagnosed age 83, passed age 84. Father Heart disease Hypertension Myocardial infarction CAD (coronary artery disease) Surgical History History of left hip hemiarthroplasty S/P TURP Status post placement of cardiac pacemaker H/O cardiac catheterization History of coronary artery stent placement Social History household members: family Smoking Status: Never smoker alcohol intake: never substance use type: does not use ROS ROS ED Constitutional Constitutional ED: Denies chills, fever(s), subjective or sweats Eyes Eyes: Denies blurry vision, change in vision or diplopia ENT ENT ED: Denies ear pain, rhinorrhea or sore throat Cardiovascular Cardiovascular: Denies chest pain, orthopnea, palpitations, paroxysmal nocturnal dyspnea or racing heartbeat Respiratory/Chest Respiratory/Chest: Denies cough, dyspnea, dyspnea on exertion, orthopnea or paroxysmal nocturnal dyspnea Gastrointestinal Gastrointestinal: Denies abdominal pain, melena, nausea or vomiting Genitourinary Genitourinary ED: Denies dysuria, hematuria or urinary frequency Musculoskeletal Musculoskeletal: Denies arthralgias, back pain or myalgias Integumentary Denies rash Neurologic Neurologic: Denies headache(s) or paresthesias Psychiatric Psychiatric: Denies anxiety or depression Endocrine Endocrinology: Denies polydipsia or polyuria Hematologic/Lymphatic Hematologic/Lymphatic: Denies easy bleeding or easy bruising EXAM Physical Exam Const Vital Signs: 04/28/25 10:07 04/28/25 10:10 Temperature 97.9 F Temperature Source Oral Pulse Rate 67 Respiratory Rate 16 Respiratory Effort Normal Non-Labored Respiratory Depth Normal Respiratory Pattern Normal Blood Pressure 143/69 H Blood Pressure Mean 93 Pulse Ox 95 Oxygen Delivery Method Room Air Positive well nourished and well developed Constitutional Narrative: Patient appears in mild discomfort. Blood pressure slightly elevated General Appearance ED: well developed HEENT Reports normocephalic and TM's normal bilaterally HEENT Narrative: There is no evidence of facial trauma or dental trauma. atraumatic Eyes PERRL and EOMs intact bilaterally General Eye ED: Negative for pale conjunctiva or scleral icterus Neck full ROM, no lymphadenopathy and supple General: Negative for tenderness Resp normal respiratory effort and no retractions Cardio regular rate, regular rhythm, S1 normal heart sound, S2 normal heart sound and no murmurs GI non-tender, non-distended and no masses Auscultation: normoactive bowel sounds Palpation: soft Narrative: There is no pain ovation over the pubic symphysis, right or left ischial tuberosity or right or left iliac wing. Logrolling causes him discomfort in the inguinal area. He has no inguinal lymphadenopathy or mass Extremity Extremity Narrative: . Slight shortening of the right lower extremity. Logrolling causes him discomfort. He does have abrasions over his right and left knee. There is no effusion. Patella is not ballotable. Varus valgus stress testing on the left causes no discomfort. Difficult to stress medial and lateral collateral ligament on the right because of pain in his groin area. He is able to have full range of motion of the left hip, left knee and ankle. There is no joint line tenderness either side. Cinthia's test is negative on the left as well as the right. It was limited on the right. Cannot perform modified Greg's test on the right. Neuro oriented x3, CN's II-XII intact bilaterally, moves all extremities, no focal motor deficits and no sensory deficits noted Christina Coma Scale: document GCS findings Spontaneous Obeys Commands Oriented 15 Sensorium / Orientation: alert Motor Exam: strength 5/5 throughout Psych mental status grossly normal and thought process normal Skin Skin Narrative: No lacerations or evidence of infection. Trauma: abrasion MDM MDM MDM Narrative Medical decision making narrative: Clinically patient has a fractured hip. Will obtain hip x-ray. If hip x-ray confirms suspicion for fracture we will obtain chest x-ray, EKG and appropriate labs for prehospital restratification clearance. A1c was added after discussion with Dr. Shahzad Leggett. History & Record Review Additional record(s) reviewed:: Prior inpatient record (Prior records for left hip fracture.) Lab Data Attestation: I reviewed the patient's lab results. Lab results narrative: White count is elevated 13,000 which is insignificant and may be due to the trauma. H&H is unremarkable. Platelet count is normal. Labs: Laboratory Results - last 24 hr 04/28/25 11:45 WBC 13.0 H RBC 4.28 L Hgb 13.4 Hct 40.4 MCV 94.4 H MCH 31.3 MCHC 33.2 RDW Std Deviation 44.2 H RDW Coeff of Facundo 12.8 Plt Count 331 MPV 9.5 Immature Gran % (Auto) 1.000 H Neut % (Auto) 82.2 H Lymph % (Auto) 10.0 L [place] % (Auto) 5.7 Eos % (Auto) 0.3 Baso % (Auto) 0.8 Absolute Neuts (auto) 10.7 H Absolute Lymphs (auto) 1.30 Nucleated RBC % 0 Blood Type A NEGATIVE Radiography Chest X-Ray - ED: 1 View (Dual-chamber pacemaker noted. Poor inspiratory volume. Difficult to read for this reason. Cardiac silhouette is normal. [place]um is normal. Osseous structures in no acute process.) and Read by ED Physician (Three-view x-ray of the right hip reveals a Sheridan type II femoral neck fracture. In light of this we will obtain a chest x-ray and appropriate blood work for restratification for surgery.) EKG Initial EKG: Attestation: I personally reviewed and interpreted this EKG as follows: Interpretation: Sinus Rhythm (Rate is 68. EKG is normal. AR interval is 182 ms. QRS duration 90 ms. QT duration 414 ms. [place] is normal) Management Discussion w/another healthcare provider: Hospitalist (Spoke with Dr. Fitzpatrick. Full admit MedSurg. He was informed I did speak with Dr. Leggett and Dr. Leggett would see the patient and plan is surgery tomorrow) and [employer] (Spoke with Dr. Leggett since patient seen Dr. Forde in the past. Admit to medicine. He requests an A1c so he can explain risk and possible more vitamin D due to his diabetes. Will contact hospitalist for admission) Discharge Plan Dx/Rx/DC Orders Clinical Impression: Closed fracture of neck of right femur, HTN (hypertension), Status post placement of cardiac pacemaker, Fall, Diabetes mellitus, Coronary artery disease, Chronic kidney disease, stage 3b, History of CVA (cerebrovascular accident), Inability to ambulate due to hip Disposition Disposition: Acute Care Hospital [facility]
--- NOTE | 2025-04-28 11:31 | EKG12_ITS ---
Test Reason : PRE-OP Blood Pressure : */* mmHG Vent. Rate : 68 BPM Atrial Rate : 68 BPM P-R Int : 182 ms QRS Dur : 90 ms QT Int : 414 ms P-R-T Axes : 65 43 56 degrees QTcB Int : 440 ms Normal sinus rhythm Normal ECG Confirmed by LEONEL GUTIERREZ, GINA ([id number]), technical writer and editor RADHA CAMACHO ([id number]) on 04/29/2025 11:00:44 AM Referred By: Confirmed By: GINA CASTANEDA MD
--- NOTE | 2025-04-28 11:31 | RAD_ITS ---
PROCEDURE: CHEST 1 VIEW (PORTABLE) 04/28/2025 REASON FOR EXAM: PREOPERATIVE CLEARANCE TECHNIQUE: Frontal view of the chest. COMPARISON: Chest radiograph 12/17/2024. FINDINGS: Hardware: Left chest wall cardiac pacer. Heart: Cardiac and mediastinal contours are stable. Lungs: Low lung volumes. Bibasilar atelectasis/scarring. No focal consolidation, pleural effusion or pneumothorax. Bones: Degenerative changes are identified within the thoracic spine. RAD/Chest 1 View (Portable) IMPRESSION: No Acute Findings. Reading Location: [id number]
[2025-04-28 11:53] LABS: Hematocrit 40.4 % (40-54); Hemoglobin 13.4 g/dL (13.0-16.5); Immature Granulocytes Count 0.130 X10^3/uL (0.0-0.0); Mean Corp Hgb Conc 33.2 g/dL (32-36); Mean Corpuscular Volume 94.4 fL (80-94); Mean Platelet Vol. 9.5 fl (6.2-12.0); NRBC Flagged by Analyzer 0 % (0-5); Platelet Count 331 K/mm3 (150-450); RBC Distribution Width CV 12.8 % (11.6-14.6); RBC Distribution Width SD 44.2 fl (35.1-43.9); Red Blood Count 4.28 M/mm3 (4.6-6.2); White Blood Count 13.0 K/mm3 (4.4-11.0)
--- NOTE | 2025-04-28 12:32 | PCM.HP.STD ---
HPI - General General Date of Admission: 04/28/25 Date of Service: 04/28/25 Chief Complaint: Fall and right hip pain. HPI Narrative BRIAN OTERO, is a 85 M came to ED after he fell down on the right side while doing gardening and carrying some weight of weedicide and then not able to stand up or ambulate. Patient stated while carrying some weight, he lost balance on the grass and fell on the right side, hurt his knee with bruise and right elbow and hand. There is some bruise on the right elbow. Patient feels soreness over right hip area. He denies dizziness, palpitation, chest pressure tightness or shortness of breath. He did not pass out/LOC. Did not hit head. He already had left hip hemiarthroplasty. X-ray done of right hip which reported normal but clinically there is not out of right hip fracture and acute debility, not able to do ADL therefore being admitted. [facility] Medical History HLD (hyperlipidemia) Hypertension Stage 3b chronic kidney disease Coronary artery disease Benign prostatic hyperplasia Diabetes mellitus, type 2 Pacemaker Home Medications ?Medication ?Instructions ?Recorded ?Last Taken ?Type hydralazine 100 mg tablet 25 mg PO TID BP 12/16/16 08/28/22 07:00 History lisinopril 40 mg tablet 40 mg PO DAILY BP 06/13/20 08/28/22 07:00 History aspirin 81 mg tablet 81 mg PO DAILY Heart 04/23/21 08/28/22 07:00 History glimepiride 1 mg tablet 2 mg PO BID Diabetes 04/23/21 08/28/22 07:00 History atorvastatin 80 mg tablet 80 mg PO QHS HYPERLIPIDEMIA 08/28/22 08/27/22 18:00 History acetaminophen 500 mg tablet 1,000 mg (2 x 500 mg) PO Q8 pain 09/08/22 Unknown Rx #0 tabs amlodipine 10 mg tablet 10 mg PO DAILY blood pressure 30 09/08/22 Unknown Rx days #30 tabs chlorthalidone 25 mg tablet 25 mg PO DAILY 12/17/24 Unknown History ezetimibe 10 mg tablet 10 mg PO DAILY cholesterol 12/17/24 Unknown History insulin glargine 100 unit/mL (3 10 unit subcut DAILY diabetes 02/24/25 Unknown History mL) subcutaneous pen (Lantus Solostar U-100 Insulin) ondansetron 4 mg disintegrating 4 mg PO Q6H PRN PRN Nausea #15 tabs 12/17/24 Unknown Rx tablet Allergy/AdvReac Type Severity Reaction Status Date / Time No Known Allergies Allergy Verified 04/28/25 10:06 Family History Mother Colon cancer Diagnosed age 83, passed age 84. Father Heart disease Hypertension Myocardial infarction CAD (coronary artery disease) Surgical History History of left hip hemiarthroplasty S/P TURP Status post placement of cardiac pacemaker H/O cardiac catheterization History of coronary artery stent placement Social History household members: family Smoking Status: Never smoker alcohol intake: never substance use type: does not use ROS ROS Narrative Constitutional: Reports fatigue and weakness. No fever. HEENT: Reports systems reviewed and no addt'l complaints, except as documented Respiratory/Chest: No acute shortness of breath or respiratory distress or wheezing. No history of smoking. CVS: No chest pain or shortness of breath. Left subclavicular pacemaker. Gastrointestinal: Denies coffee ground emesis, hematemesis or vomiting Genitourinary: Denies burning urination or new urinary tract symptoms Musculoskeletal: Left hip replacement. Rest as described in HPI. Neurologic: Denies seizure-like symptoms. skin: No ulcer. Some bruise on the right knee Endocrinology: Reports systems reviewed and no addt'l complaints, except as documented Hematologic/Lymphatic: Reports systems reviewed and no addt'l complaints, except as documented Rest 14 ROS are negative except as mentioned in HPI Vital Signs Vital Signs Vital Signs: 04/28/25 10:07 04/28/25 10:10 04/28/25 12:06 Temperature 97.9 F Temperature Source Oral Pulse Rate 67 71 Respiratory Rate 16 16 Respiratory Effort Normal Non-Labored Respiratory Depth Normal Respiratory Pattern Normal Blood Pressure 143/69 H 138/64 H Blood Pressure Mean 93 88 Pulse Ox 95 99 Oxygen Delivery Method Room Air Weight Weight: 191 lb 12.835 oz Body Mass Index (BMI) 25.9 Physical Exam Narrative General: Alert, Oriented x3, Cooperative HEENT: Atraumatic, PERRLA, EOMI, Normocephalic. Oral: Oral mucosa dry no Gingival or Mucosal Lesions/ Ulcerations Neck: Supple, No JVD, Negative Carotid Bruits Chest wall/Lungs: Air entry equal in bilateral lung bases. No crepitation/rhonchi Cardiovascular: Regular rate and rhythm, Normal S1,S2, No M/G/R. Late circular pacemaker Abdomen: Bowel Sounds Present, Soft, Non Tender, Non-Distended : No dysuria. No renal angle tenderness. No suprapubic tenderness. Extremities: No edema, Capillary Refill Less than 3 Seconds Skin: Right knee has bruising but no active bleeding. Left elbow and forearm has cutaneous black discoloration seems old bruises patient states happened today Musculoskeletal: Tenderness over right hip joint. Right hip sore on abduction and adduction, complete ROM, muscle power assessment not attempted. Status post left hemiarthroplasty Neurological: Cranial nerves II-XII grossly intact, DTR 2+/4. No acute focal neurological deficit. Psych/Mental Status: Flat affect Results Lab / Micro Data 04/28/25 11:45 04/28/25 11:45 Labs: Laboratory Results - last 24 hr 04/28/25 11:45: WBC 13.0 H, RBC 4.28 L, Hgb 13.4, Hct 40.4, MCV 94.4 H, MCH 31.3, MCHC 33.2, RDW Std Deviation 44.2 H, RDW Coeff of Facundo 12.8, Plt Count 331, MPV 9.5, Immature Gran % (Auto) 1.000 H, Neut % (Auto) 82.2 H, Lymph % (Auto) 10.0 L, [place] % (Auto) 5.7, Eos % (Auto) 0.3, Baso % (Auto) 0.8, Absolute Neuts (auto) 10.7 H, Absolute Lymphs (auto) 1.30, Nucleated RBC % 0, Blood Type A NEGATIVE, Antibody Screen NEGATIVE Assessment & Plan Assessment/Plan (1) Inability to ambulate due to hip: (2) Debility: PLAN: Plan This is a 85-year-old gentleman being admitted after a fall with acute debility, inability to do ADL and concern for right hip fracture 1. Acute debility/inability to ADL and concern for right hip fracture: [facility]. Clinical concern for right hip fracture but right hip x-ray reported normal-appearing right hip but images reviewed with ED physician there is small/faint line of fracture at the base of neck of hip. CT right hip ordered. Orthopedic surgeon, Dr. Leggett consulted. PT and OT and pain control ordered. Patient has mild soreness but tenderness at hip joint. 2. CAD status post cardiac stent and left subclavicular pacemaker: Twelve-lead EKG done in the ER, NSR normal ECG 68 bpm. QTc 440 ms. Chest x-ray initially reviewed no acute finding. Baby aspirin continued. 3. DM type II: A1c 7.2%. Glucose 164 mg/dL. Accu-Chek before meals and at bedtime with Humalog sliding scale coverage and hypoglycemia protocol. 4. CKD stage IIIb: BUN/creatinine 33/1.65. BUN/creatinine was 35/1.86 during previous admission in November 2024 when he was admitted for vertigo. Serum electrolytes in normal range. Half-normal saline IV fluid ordered. Hold glimepiride. On Lantus 10 units subcutaneous daily, continued with holding parameters. Hypoglycemia protocol. 5. Hypertension: Continue amlodipine. Chlorthalidone and lisinopril held as there is potential plan of hip surgery if hip fracture is confirmed on the CT scan. Monitor BP and titrate the medications 6. Dyslipidemia: Continue atorvastatin ezetimibe. 7. DVT prophylaxis: High risk. Heparin 5000 units subcutaneous 3 times daily ordered. Bilateral SCDs Living will/advanced directive/end of life care: Patient does not living will or advanced directive. He has reviewed power of ip attorney for health his daughter. After discussion of benefits/risks procedures involved with full code, DNR CC arrest and DNR CC, the patient opted for DNR CC arrest with no intubation Patient doesn't want artificial life support including intubation, tube feed, ventilator and/chest compression, central venous catheter, vasopressor and DC shock if needed Total time spent in [id number] encounter in discussion of advanced directive 17 minutes. Clinical Impression(s) from Imaging Studies Hip/Pelvis X-Ray 04/28/25 10:42 IMPRESSION: 1. Normal-appearing right hip. 2. Other findings as noted. Chest X-Ray 04/28/25 11:31 IMPRESSION: No Acute Findings. Laboratory Results 04/28/25 11:45: WBC 13.0 H, RBC 4.28 L, Hgb 13.4, Hct 40.4, MCV 94.4 H, MCH 31.3, MCHC 33.2, RDW Std Deviation 44.2 H, RDW Coeff of Facundo 12.8, Plt Count 331, MPV 9.5, Immature Gran % (Auto) 1.000 H, Neut % (Auto) 82.2 H, Lymph % (Auto) 10.0 L, [place] % (Auto) 5.7, Eos % (Auto) 0.3, Baso % (Auto) 0.8, Absolute Neuts (auto) 10.7 H, Absolute Lymphs (auto) 1.30, Nucleated RBC % 0, Sodium 142, Potassium 4.5, Chloride 107, Carbon Dioxide 24.3, Anion Gap 11, BUN 33 H, Creatinine 1.65 H, Estim Creat Clear Calc 36.58 L, Est GFR (MDRD) Non-Af 41 L, BUN/Creatinine Ratio 20.1 H, Glucose 164 H, Hemoglobin A1c 7.2 H, Calcium 9.1, Blood Type A NEGATIVE, Antibody Screen NEGATIVE There was some delay about 10 minutes including admitting her because at the same time rapid response was called in the main entrance parking lot. And had to go to take care of the rapid response. Charges/Coding Visit Charges Inpatient E&M: 77762 Disch Hosp >30min Procedures Hospitalists Procedures: 85924 Advncd Care Plan 30 Min
[2025-04-28 12:42] LABS: Anion Gap 11 (5-15); BUN 33 mg/dL (4-19); BUN/Creat Ratio 20.1 RATIO (10-20); Calcium,Total 9.1 mg/dL (7.6-11.0); Carbon Dioxide 24.3 mmol/L (21.0-32.0); Chloride 107 mmol/L (98-108); Estimated Creatinine Clearance 36.58 ml/min (50-250); Glucose 164 mg/dL (70-99); Potassium 4.5 mmol/L (3.3-5.1)
[2025-04-28 13:22] LABS: Magnesium 1.8 mg/dL (1.5-2.2)
--- OUTSIDE RECORDS SUMMARY | 2025-04-28 14:07 | XMS RPT_ITS | CCD ---
Author Organization [facility] CliniSynh Care Team Providers Care Unix Consultant Name Role Phone Osorio Acharya MD Unavailable Unavailable Osorio Acharya MD Unavailable Unavailable Eh Morton MD Unavailable [phone] KELSIE SALGUERO Attending Unavailable UNKNOWN, PROVIDER Referring Unavailable Evy, Jose Primary Care Unavailable KELSIE SALGUERO Attending Unavailable UNKNOWN, PROVIDER Referring Unavailable Evy, Jose Primary Care Unavailable UNKNOWN, PROVIDER Referring Unavailable Evy, Jose Primary Care Unavailable Arjun Callejas Attending Unavailable Jose Clarke F Primary Care Provider Evy GRADY, Jose F Primary Care Provider [phone] Evy GRADY, Jose F Primary Care Provider Eyv GRADY, Jose F Primary Care Provider Dr. Jose Clarke Primary Care Provider Dr. Joesph Keane Attending Provider [phone] Dr. Jose Clarke Primary Care Provider Dr. Ayaan Quesada Emergency Provider Dr. Suma Nicolas Admit Provider Dr. Suma Nicolas Other Provider Dr. Jaziel Forde Other Provider [phone] Dr. Janiya Robert Attending Provider Dr. Janiya Robert Other Provider Dr. Aniket Costa Other Provider Dr. Rachele Wilson Attending Provider [place], Dr. [place] Other Provider Jose Clarke DO Primary Care Provider AngelineJose gillette DO Primary Care Provider Jose Clarke DO F Primary Care Provider Jopperi, Harvey Attending Unavailable Petrilla, Jose Primary Care Unavailable Robert, Janiya Attending Unavailable Petrilla, Cisne Primary Care Unavailable Jopperi, Harvey Admitting Unavailable Jopperi, Harvey Consulting Unavailable Robert, Janiya Consulting Unavailable Jopperi, Harvey Consulting Unavailable Robert, Janiya Attending Unavailable Petrilla, Cisne Primary Care Unavailable Jopperi, Harvey Admitting Unavailable RADHA TORRES Attending Unavailable PETRILLA, POWERS Primary Care Unavailable PETRILLA, POWERS Primary Care Unavailable PETRILLA, JOSE Attending Unavailable PETRILLA, POWERS Primary Care Unavailable PETRILLA, JOSE Attending Unavailable PETRILLA, POWERS Primary Care Unavailable PETRILLA, JOSE Attending Unavailable PETRILL, POWERS Primary Care Unavailable PETRIA, JOSE Attending Unavailable PETRILLA, POWERS Primary Care Unavailable PETRILLA, JOSE Attending Unavailable PETRILLA, POWERS Primary Care Unavailable Medications Current Medications Medication [...] MG TABS one tablet daily AMLODIPINE BESYLATE [id number] Eh Morton MD Start: 12-16-2016 End: 09-08-2022 [...] 81 MG TBEC one tablet daily ASPIRIN [id number] Eh Morton MD atorvastatin 80 mg oral [...] MG TABS one tablet daily ATORVASTATIN CALCIUM [id number] Eh Morton MD Start: 12-16-2016 End: 08-28-2022 [...] READER) NAIF (1 source) Continuous Blood Gluc Septic Tank Cleaner (FREESTYLE JOSE 14 DAY READER) NAIF by Does not apply route 0 Active Continuous Blood Gluc Receiv er (FREESTYLE JOSE READER) NAIF (1 source) Start: 12-22-2021 Continuous Blo od Gluc Septic Tank Cleaner (FREESTYLE JOSE READER) NAIF 1 each by [...] not apply route 0 Active Continuous Glucose Septic Tank Cleaner (FreeStyle Jose 3 [place]) device (10 sources) Start: 11-08-2024 Continuous Glu cose Septic Tank Cleaner (FreeStyle Jose 3 [place]) device 1 each 2 times daily as needed (check glucose levels). E11.9 1 each 11/08/2024 Active Continuous Glucose Sensor (FreeStyle Jose 3 Sensor) mis (10 sources) Start: 11-08-2024 Continuous Glu cose Sensor (FreeStyle Jose 3 Sensor) [facility] 1 each every 14 (fourteen) days. E11.9 [...] 50mg tablet three times daily HYDRALAZINE HCL [id number] Eh Morton MD Start: 11-23-2018 HYDRALAZINE HC L 50 MG TABS take one tablet with 25mg tablet three times daily HYDRALAZINE HCL [id number] Eh Morton MD Start: 12-16-2016 take 25 [...] 18 units in the evening INSULIN GLARGINE [id number] Eh Morton MD lisinopril 40 mg oral [...] Active Start: 11-13-2019 take 1 tablet by [facility] once daily lisinopril (PRINIVIL;ZESTRIL) 40 MG tablet Take 1 tablet by mouth daily 90 tablet 0 11/13/2019 Active Start: 11-23-2018 LISINOPRIL 40 MG TABS one tablet daily LISINOPRIL [id number] Eh Morton MD melatonin 10 mg oral [...] Active Start: 05-15-2020 take 1 capsule by [facility] once daily tamsulosin (FLOMAX) 0.4 MG capsule Take 1 capsule by mouth daily 90 capsule 1 05/15/2020 Active Start: 11-13-2019 take 1 capsule by [facility] once daily tamsulosin (FLOMAX) 0.4 MG capsule Take 1 capsule by mouth daily 90 capsule 0 11/13/2019 Active Start: 11-23-2018 TAMSULOSIN HCL 0.4 MG CAPS one tablet daily TAMSULOSIN HCL [id number] Eh Morton MD triamcinolone acetonide 0.001 mg/mg [...] to affected area twice daily TRIAMCINOLONE ACETONIDE [id number] Eh Morton MD Start: 11-06-2018 triamcinolone (KENALOG) [...] minibag docusate sodium 50 mg / sennosides, shelter 8.6 mg oral tablet (6 sources) Start: [...] 03/26/2025 Discontinued (Therapy completed) polyethylene glycol 3350 35056 mg powder for oral solution (3 sources) Osmotic Laxative End: 02-14-2023 polyethylene glycol, PEG, 3350 (Glycolax) 17 GM/SCOOP powder Take by mouth. 0 02/14/2023 Discontinued (Therapy completed) sennosides, shelter 8.6 mg oral tablet (2 sources) Start: 11-23-2018 SENNA 8.6 MG TABS one tablet daily SENNOSIDES [id number] Eh Morton MD 50 ml sodium chloride [...] disease (20 sources) Atherosclerotic heart disease of [place] coronary artery without angina pectoris; Translations: [Coronary [...] 9 11-23-2018 Chronic Other aftercare (2 sources) jail (current) use of aspirin; Translations: [jail (current) use of aspirin] Onset: 9 Episodic [...] 02-06-2021 01-03-2019 Episodic Other aftercare (4 sources) jail (current) use of insulin; Translations: [jail (current) use of insulin] Onset: 11-16-2018 Episodic [...] Facility 36on 04-08-2025 36 This was sent [facility] 36 Name of caller: Holli levine Contact phone number: [phone] Relationship to Patient: patient Provider: Dr. Clarke [...] business hours to return their call: Yes [facility] 36 Spoke with latoya t. No issues with the sensors. Stated he picked up on 03/26/25 and that will last 28 days and will be due for a refill at that time. If patient is having issues with his sensor as in it doesn't work or fell off too soon he needs to reach out to the company [employer]. Information is listed on senor box [employer] [facility] 36 Name of caller: holli levine Contact phone number: [phone] Relationship to Patient: patient Provider: evy Practice: [...] business hours to return their call: N/A [facility] 36on 04-01-2025 36 Message released to patient as written. Labs are stable with improved hemoglobin A1c. Continue all diabetic meds as is. CBC and renal function stable. Lipids at goal. Patient's further questions if applicable: none Were all questions from office addressed or relayed to the patient from encounter: Yes [facility] 36 Placed call to lula nt. Unable to reach them by phone to discuss lab results. Left detailed message to return call to discuss results. 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 Continue all diabetic meds as is. CBC and renal function stable. Lipids at goal. 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 Vines. ----- Message ----- From: Ayse Salinas Lab Results In Sent: 03/27/2025 2:38 AM EDT To: Jose Clarke DO [facility] Office Visiton 03-26-2025 Follow-up visit [id number] Sharron Joshi 1940 M Date Provider Department Center 03/26/2025 [id number] CLARKE [facility] Family History Problem Relation Age of Onset Colon cancer Mother Comments: age 82 Coronary artery disease Father Comments: AL, age 57 No Known Problems Sister Diabetes Sister Hypertension Brother Prostate cancer Brother 74 Comments: alive age 80 No Known Problems Brother Comments: in ECF, alive age 88 Prostate cancer Brother 70 Dementia Brother Comments: in ECF age 93 Family Status - Relation Status Age at Mother Father Sister Alive Sister Alive Brother Alive Brother Alive Brother Alive Level of Service:90553 [place] OFFICE/OUTPATIENT ESTABLISHED MOD MDM 30 MIN Reason for Visit and Comments: Follow-up [180185] - Med check [facility] Progress Noteon 03-26-2025 Progress Note [facility] - [address] [facility] [address] Visit type: Established Patient Reason for [...] - Lipid panel 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 Essential hypertension Comments: [...] Disp: 100 tablet, Rfl: 2 Continuous Glucose Septic Tank Cleaner (FreeStyle Jose 3 [place]) device, 1 each 2 times daily as [...] , Rfl: gluc (more content not included)... [facility] 02-28-2025 36 Talked to patient an d relayed message and he verbalized understanding. [facility] 02-27-2025 36 Name of caller: Holli levine Contact phone number: [phone] Relationship to Patient: patient Provider: Dr Clarke Practice: [facility] Chief Complaint/Reason for Call: Patient stated he is upset as he went to [facility] to get his insulin glargine (Lantus SoloStar) 100 UNIT/ML pen and was told the medication was cancelled. Patient wanted pal to call [facility] and they confirmed this was cancelled [...] business hours to return their call: No [facility] 02-12-2025 36 Recent Visits Date Type Provider Dept 12/21/24 Office Visit Jose Clarke, [facility] 10/30/24 Office Visit Jose Clarke, [facility] 07/03/24 Office Visit Jose Clarke DO [facility] Showing recent visits within past 365 days and meeting all other requirements Future Appointments Date Type Provider Dept 03/26/25 Appointment Jose Clarke DO [facility] Showing future appointments within next [...] recent labs completed in chart? N/A None [facility] 36on 02-11-2025 36 Name of caller: Holli levine Contact phone number: [phone] Relationship to Patient: patient Provider: Evy Practice: [facility] Chief Complaint/Reason for Call: Patient states he needs both medications chlorthalidone (Hygroton) 25 MG tablet ,atorvastatin (Lipitor) 80 MG tablet sent to pharmacy [facility] - [address] states they are saying there is no refills. Please advise patient when done needs as soon as possible. Best time of day caller can be reached: any Patient advised that office/PCP has 24-48 business hours to return their call: Yes [facility] Office Visiton 12-21-2024 Follow-up visit [id number] Sharron Joshi 1940 [facility] Provider Department Center 12/21/2024 [id number] CLARKE [facility] Family History Problem Relation Age of Onset Colon cancer Mother Comments: age 82 Coronary artery disease Father Comments: AL, age 57 No Known Problems Sister Diabetes Sister Hypertension Brother Prostate cancer Brother 74 Comments: alive age 80 No Known Problems Brother Comments: in ECF, alive age 88 Prostate cancer Brother 70 Dementia Brother Comments: in ECF age 93 Family Status - Relation Status Age at Mother Father Sister Alive Sister Alive Brother Alive Brother Alive Brother Alive Level of Service:46120 [place] OFFICE/OUTPATIENT ESTABLISHED MOD MDM 30 MIN Reason for Visit and Comments: Hospital Follow-up [832] - TOC_ dizzy and nausea Constipation [622635] - Hasn't went in 4 days Normal [facility] Progress Noteon 12-21-2024 Progress Note [facility] - [address] [facility] [address] Visit type: Established Patient Reason for [...] kidney disease (HCC) 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 Hypercholesterolemia with hypertriglyceridemia [...] morning only 200 tablet 2 Continuous Glucose Septic Tank Cleaner (FreeStyle Jose 3 [place]) device 1 each 2 times daily as [...] Essential hype (more content not included)... Normal [facility] Hemoglobin A1con 12-19-2024 HbA1c (Bld) [Mass fraction] 7.6 % Normal <=5.6 [facility] Comment on above: Performed By: #### L 500.2500, L501.9985 #### [facility] Laboratory [address] [place], [address] Basic Metabolic Profile (BMP )on 12-18-2024 BUN/CRE 21.0 RATIO High 10-20 [facility] Comment on above: Performed By: #### L 500.2500, L501.9985 #### [facility] Laboratory [address] [place], [address] CA,Total 8.8 mg/dL Normal 8.5-10.1 [facility] Comment on above: Performed By: #### L 500.2500, L501.9985 #### [facility] Laboratory [address] [place], [address] Chloride [Moles/Vol] 110 mmol/L High 98-107 [facility] Comment on above: Performed By: #### L 500.2500, L501.9985 #### [facility] Laboratory [address] [place], [address] CO2 [Moles/Vol] 29.0 mmol/L Normal 21.0-32.0 [facility] Comment on above: Performed By: #### L 500.2500, L501.9985 #### [facility] Laboratory [address] [place], [address] Creatinine [Mass/Vol] 1.43 mg/dL High 0.70-1.30 [facility] Comment on above: Result Comment: The validity of the calculated GFR GFRAA in patients over 70 years has not been determined. Clinical correlation is essential. Performed By: #### L 500.2500, L501.9985 #### [facility] Laboratory [address] [place], [address] ECRCL 42.96 ml/min Normal [facility] Comment on above: Performed By: #### L 500.2500, L501.9985 #### [facility] Laboratory [address] [place], [address] EST GFR - AA 61 mL/min Normal >60 [facility] Comment on above: Result Comment: Afri can Palestinian GFR Calc Performed By: #### L 500.2500, L501.9985 #### [facility] Laboratory [address] [place], [address] GAP 3 Low 5-15 [facility] Comment on above: Performed By: #### L 500.2500, L501.9985 #### [facility] Laboratory [address] [place], [address] GFR/1.73 sq M.predicted among non-blacks MDRD (S/P/Bld) [Vol rate/Area] 50 mL/min/{1.73_m2} Low >60 [facility] Comment on above: Result Comment: Non- GFR Calc Performed By: #### L 500.2500, L501.9985 #### [facility] Laboratory [address] [place], [address] Glucose [Mass/Vol] 99 mg/dL Normal 74-106 [facility] Comment on above: Performed By: #### L 500.2500, L501.9985 #### [facility] Laboratory [address] [place], [address] Potassium [Moles/Vol] 3.3 mmol/L Low 3.5-5.1 [facility] Comment on above: Performed By: #### L 500.2500, L501.9985 #### [facility] Laboratory [address] [place], [address] Sodium [Moles/Vol] 142 mmol/L Normal 136-145 [facility] Comment on above: Performed By: #### L 500.2500, L501.9985 #### [facility] Laboratory [address] [place], [address] Urea nitrogen [Mass/Vol] 30 mg/dL High 7-18 [facility] Comment on above: Performed By: #### L 500.2500, L501.9985 #### [facility] Laboratory [address] [place], [address] Bedside Glucoseon 12-18-2024 FINGERSTICK GLU 114 mg/dL High 74-106 [facility] Comment on above: Result Comment: BUCK GEMENT OF PATIENT CARE PER NURSING PROTOCOL Performed By: #### L 501.080 #### [facility] Laboratory [address] [place], [address] FINGERSTICK GLU 218 mg/dL High 74-106 [facility] Comment on above: Result Comment: BUCK GEMENT OF PATIENT CARE PER NURSING PROTOCOL Performed By: #### L 501.080 #### [facility] Laboratory [address] [place], [address] FINGERSTICK GLU 186 mg/dL High 74-106 [facility] Comment on above: Result Comment: BUCK GEMENT OF PATIENT CARE PER NURSING PROTOCOL Performed By: #### L 501.080 #### [facility] Laboratory [address] [place], [address] Discharge Instructionon 11-25 Discharge Instruction [facility] Medical Records Department [address] [place] [address] Instructions for Home/Discharge Instructions 12/18/24 1152 MR#: [id number] Acct: [id number] Name: BRIAN JOSHI Rep #: [id number] : 1940 84 From: Janiya Robert MD [...] DO; Dr. Jose Clarke DO Signed Normal [facility] 12 Lead EKGon 12-17-2024 12 Lead EKG [facility] Cardiovascular Services [address] [place] [address] 12 Lead EKG 12/17/24 1213 MR#: [id number] Acct: [id number] Name: BRIAN JOSHI Rep #: [id number] : 1940 84 From: Vishal Shannon MD Attending Dr: Dr. Janiya Robert MD Status: DIS DIEGO Ordering Dr: Mk Terry DO Date: 12/17/24 Location: [facility] Sex: M C Admitted: 12/17/24 Test Reason [...] infarct Abnormal ECG Confirmed by Vishal Shannon ([id number]), subeditor RADHA CAMACHO ([id number]) on 12/19/2024 7:59:59 AM Referred By: Confirmed By: Vishal Shannon 12/19/24 0800 Date Vishal Shannon MD CC: Dr. Mk Terry DO; Dr. Jose Clarke DO; Dr. Janiya Robert MD Signed [facility] 36on 12-17-2024 36 Triage message luis bundy with clinical staff. Patient appointment confirmed. PCP will assess at appointment visit. [facility] 36 S: Patient spoke wit h [facility] nurse regarding dizziness. B: Onset of symptoms [...] now) Protocols used: Diabetes - High Blood Jmwhc-UQVPF-TN, [id number]-[id number]-SM [facility] Basic Metabolic Profile (BMP )on 12-17-2024 BUN/CRE 18.8 RATIO Normal 10-20 [facility] Comment on above: Performed By: #### L 500.2500, L500.3400, L501.5425, L501.2450 #### [facility] Laboratory [address] [facility] [address] CA,Total 9.2 mg/dL Normal 8.5-10.1 [facility] Comment on above: Performed By: #### L 500.2500, L500.3400, L501.5425, L501.2450 #### [facility] Laboratory [address] [place], [address] Chloride [Moles/Vol] 109 mmol/L High 98-107 [facility] Comment on above: Performed By: #### L 500.2500, L500.3400, L501.5425, L501.2450 #### [facility] Laboratory [address] [place], [address] CO2 [Moles/Vol] 27.0 mmol/L Normal 21.0-32.0 [facility] Comment on above: Performed By: #### L 500.2500, L500.3400, L501.5425, L501.2450 #### [facility] Laboratory [address] [place], [address] Creatinine [Mass/Vol] 1.86 mg/dL High 0.70-1.30 [facility] Comment on above: Result Comment: The validity of the calculated GFR GFRAA in patients over 70 years has not been determined. Clinical correlation is essential. Performed By: #### L 500.2500, L500.3400, L501.5425, L501.2450 #### [facility] Laboratory [address] [place], [address] ECRCL 32.18 ml/min Normal [facility] Comment on above: Performed By: #### L 500.2500, L500.3400, L501.5425, L501.2450 #### [facility] Laboratory [address] [place], [address] EST GFR - AA 45 mL/min Low >60 [facility] Comment on above: Result Comment: Afri can Palestinian GFR Calc Performed By: #### L 500.2500, L500.3400, L501.5425, L501.2450 #### [facility] Laboratory [address] [place], [address] GAP 8 Normal 5-15 [facility] Comment on above: Performed By: #### L 500.2500, L500.3400, L501.5425, L501.2450 #### [facility] Laboratory [address] [place], [address] GFR/1.73 sq M.predicted among non-blacks MDRD (S/P/Bld) [Vol rate/Area] 37 mL/min/{1.73_m2} Low >60 [facility] Comment on above: Result Comment: Non- GFR Calc Performed By: #### L 500.2500, L500.3400, L501.5425, L501.2450 #### [facility] Laboratory [address] [place], [address] Glucose [Mass/Vol] 191 mg/dL High 74-106 [facility] Comment on above: Result Comment: Fast ing Glucose result greater than or equal to 126 mg/dL suggests DIABETES MELLITUS per A.D.A. criteria. Performed By: #### L 500.2500, L500.3400, L501.5425, L501.2450 #### [facility] Laboratory [address] [place], [address] Potassium [Moles/Vol] 3.6 mmol/L Normal 3.5-5.1 [facility] Comment on above: Performed By: #### L 500.2500, L500.3400, L501.5425, L501.2450 #### [facility] Laboratory [address] [place], [address] Sodium [Moles/Vol] 145 mmol/L Normal 136-145 [facility] Comment on above: Performed By: #### L 500.2500, L500.3400, L501.5425, L501.2450 #### [facility] Laboratory [address] [place], [address] Urea nitrogen [Mass/Vol] 35 mg/dL High 7-18 [facility] Comment on above: Performed By: #### L 500.2500, L500.3400, L501.5425, L501.2450 #### [facility] Laboratory [address] [place], [address] Brain/Head without Contrasto n 12-17-2024 Brain/Head without Contrast [facility] Imaging Services [address] [place] [address] Brain/Head without Contrast MR#: [id number] Acct: [id number] Name: BRIAN JOSHI Rep #: [id number] : 1940 M 84 From: Danii call MD PCP: Dr. Jose Clarke DO Status: REG ER Study: Brain/Head without Contrast Date of Exam: 11/25 02/15 Exam# [id number] Ordering Dr: Mk Terry DO EXAM: BRAIN/HEAD [...] evidence of acute intracranial pathology. Reading [facility] CC: Dr. Mk Terry DO; Dr. Jose Clarke DO Behavioral Therapy Coordinator: Signed Normal [facility] CBC W/Diff, Automatedon 11-25 Absolute Lymph 3.25 X10 3/uL Normal 0.83-4.51 [facility] Comment on above: Performed By: #### L 100.0100 #### [facility] Laboratory [address] [place], [place], [address] Absolute Neut 7.9 X10 3/uL High 2.0-7.7 [facility] Comment on above: Performed By: #### L 100.0100 #### [facility] Laboratory [address] [place], [address] Basophils/100 WBC (Bld) 1.3 % High 0-1 [facility] Comment on above: Performed By: #### L 100.0100 #### [facility] Laboratory [address] [place], [address] Eosinophils/100 WBC (Bld) 1.1 % Normal 0-5 [facility] Comment on above: Performed By: #### L 100.0100 #### [facility] [facility] [address] [place], [address] Erythrocyte distribution width (RBC) [Ratio] 12.8 % Normal 11.6-14.6 [facility] Comment on above: Performed By: #### L 100.0100 #### [facility] [address] [place], [address] Hematocrit (Bld) [Volume fraction] 45.2 % Normal 40-54 [facility] Comment on above: Performed By: #### L 100.0100 #### [facility] [address] [place], [address] Hemoglobin (Bld) [Mass/Vol] 14.6 g/dL Normal 13.0-16.5 [facility] Comment on above: Performed By: #### L 100.0100 #### [facility] [address] [place], [address] IG% 0.500 Normal 0.0-0.9 [facility] Comment on above: Result Comment: IG% - Immature Granulocytes (promyelocytes, myelocytes and metamyelocytes) > 1% indicates that a LEFT SHIFT is Present. Performed By: #### L 100.0100 #### [facility] [address] [place], [address] Lymphocytes/100 WBC (Bld) 25.9 % Normal 19-41 [facility] Comment on above: Performed By: #### L 100.0100 #### [facility] [address] [place], [address] MCH (RBC) [Entitic mass] 30.2 pg Normal 27.0-32.0 [facility] Comment on above: Performed By: #### L 100.0100 #### [facility] [address] [place], [address] MCHC (RBC) [Mass/Vol] 32.3 g/dL Normal 32-36 [facility] Comment on above: Performed By: #### L 100.0100 #### [facility] [address] [place], [address] MCV (RBC) [Entitic vol] 93.6 fL Normal 80-94 [facility] Comment on above: Performed By: #### L 100.0100 #### [facility] [address] [place], [address] Monocytes/100 WBC (Bld) 8.1 % Normal 0-10 [facility] Comment on above: Performed By: #### L 100.0100 #### [facility] [address] [place], [address] Neutrophils/100 WBC (Bld) 63.1 % Normal 47-70 [facility] Comment on above: Performed By: #### L 100.0100 #### [facility] [address] [place], [address] Nucleated RBC (Bld) [#/Vol] 0 10*3/uL Normal 0-5 [facility] Comment on above: Performed By: #### L 100.0100 #### [facility] [address] [place], [address] Platelet mean volume (Bld) [Entitic vol] 10.4 fL Normal 6.2-12.0 [facility] Comment on above: Performed By: #### L 100.0100 #### [facility] [address] [place], [address] Platelets (Bld) [#/Vol] 395 10*3/uL Normal 150-450 [facility] Comment on above: Performed By: #### L 100.0100 #### [facility] [address] [place], [address] RBC (Bld) [#/Vol] 4.83 10*6/uL Normal 4.6-6.2 [facility] Comment on above: Performed By: #### L 100.0100 #### [facility] [address] [place], [address] RDW SD 44.2 fl High 35.1-43.9 [facility] Comment on above: Performed By: #### L 100.0100 #### [facility] [address] [place], [address] WBC (Bld) [#/Vol] 12.5 10*3/uL High 4.4-11.0 [facility] Comment on above: Performed By: #### L 100.0100 #### [facility] [address] [place] [place], [address] Chest 1 View (Portable)on Chest 1 View (Portable) [facility] Imaging Services [address] [place] [address] Chest 1 View (Portable) MR#: [id number] Acct: [id number] Name: BRIAN JOSHI Julieta Rep #: [id number] : 1940 M 84 From: Yoni Moreno MD PCP: Dr. Jose Clarke DO Status: PRE ER Study: Chest 1 View (Portable) Date of Exam: 12/17/24 Exam# [id number] Ordering Dr: Mk Terry DO EXAM: XR [...] (Portable) IMPRESSION: Pulmonary venous congestion. Reading Location: [facility] CC: Dr. Mk Terry DO; Dr. Jose Clarke DO Behavioral Therapy Coordinator: Signed Normal [facility] Emergency Department Summary on 12-17-2024 Emergency Department Summary [facility] Medical Records Department [address] [place] [address] Emergency Department Summary 12/17/24 MR#: [id number] Acct: [id number] Name: BRIAN JOSHI Rep #: [id number] : 1940 84 From: Mk Terry DO PCP: Dr. Jose Clarke DO Status:[place] Location: [place] [id number] What to do if you have Problems For any increased pain, shortness of breath, bleeding, nausea or vomiting, chest pain, or any unexpected problems, contact your Primary Care Provider. Call [facility] ([phone]) or report to the closest Emergency Room. Call 911 if necessary. 12/21/24 1010 Cosigner Signature (if applicable): 12/22/24 0656 CC: Dr. Jose Clarke DO Signed Normal [facility] Emergency Department Summary [facility] Medical Records Department [address] [place] [address] Emergency Department Summary 12/17/24 MR#: [id number] Acct: [id number] Name: BRIAN JOSHI Rep #: [id number] : 1940 84 From: Mk Terry DO [...] 1833 Cosigner Signature (if applicable): cc: Dr. Jsoe Clarke DO * Signed ADDENDUM by Dr. [...] any. He states he recently saw his roof bolter as his pacemaker battery is due to be changed. [facility] Medical History HLD (hyperlipidemia) Hypertension Stage 3b [...] Smoking Status (more content not included)... Normal [facility] H AND P Exam - Hospitaliston 12-17-2024 H&P Exam - Hospitalist [facility] Medical Records Department [address] [place] [address] H P Exam - Hospitalist 12/17/24 1803 MR#: [id number] Acct: [id number] Name: BRIAN JOSHI Rep #: [id number] : 1940 84 From: Harvey Flores DO [...] and did have some nausea and vomiting. [facility] Medical History HLD (hyperlipidemia) Hypertension Stage [...] Temperature Source (more content not included)... Normal [facility] L501.4020on 12-17-2024 TROPONIN-I HS 10 pg/mL Normal 3.0-78.0 [facility] Comment on above: Result Comment: Plea se Note: New Test Units and Gender Specific Reference Ranges. For more information see Policy Stat Procedure [place] High Sensitivity Troponin (TNIH) and attachments. Performed By: #### L 500.2500, L501.9985 #### [facility] [address] [place], [address] L501.5425on 12-17-2024 TROPONIN-I HS 10 pg/mL Normal 3.0-78.0 [facility] Comment on above: Order Comment: 1Y Result Comment: Plea se Note: New Test Units and Gender Specific Reference Ranges. For more information see Policy Stat Procedure [place] High Sensitivity Troponin (TNIH) and attachments. Performed By: #### L 500.2500, L501.9985 #### [facility] [address] [place], [address] Lipaseon 12-17-2024 Lipase [Catalytic activity/Vol] 65 U/L Low 73-393 [facility] Comment on above: Performed By: #### L 500.2500, L500.3400, L501.5425, L501.2450 #### [facility] [address] [place], [address] Liver Profileon 12-17-2024 Albumin [Mass/Vol] 3.5 g/dL Normal 3.2-5.0 [facility] Comment on above: Performed By: #### L 500.2500, L500.3400, L501.5425, L501.2450 #### [facility] [address] [place], [address] ALK P 81 U/L Normal 45-117 [facility] Comment on above: Performed By: #### L 500.2500, L500.3400, L501.5425, L501.2450 #### [facility] [address] [place], [address] ALT [Catalytic activity/Vol] 24 U/L Normal 16-61 [facility] Comment on above: Performed By: #### L 500.2500, L500.3400, L501.5425, L501.2450 #### [facility] [address] [place], [address] AST [Catalytic activity/Vol] 13 U/L Low 15-37 [facility] Comment on above: Performed By: #### L 500.2500, L500.3400, L501.5425, L501.2450 #### [facility] [address] [place], [address] Bilirubin [Mass/Vol] 0.60 mg/dL Normal 0.20-1.00 [facility] Comment on above: Result Comment: For patients on eltrombopag therapy, use of Dimension [place] TBIL is not recommended. Performed By: #### L 500.2500, L500.3400, L501.5425, L501.2450 #### [facility] [address] [place], [address] Bilirubin.direct [Mass/Vol] 0.22 mg/dL Normal 0.00-0.30 [facility] Comment on above: Performed By: #### L 500.2500, L500.3400, L501.5425, L501.2450 #### [facility] [address] [place], [address] Globulin (S) [Mass/Vol] 3.9 g/dL Normal 2.2-4.2 [facility] Comment on above: Performed By: #### L 500.2500, L500.3400, L501.5425, L501.2450 #### [facility] [address] [place], [address] T PROT 7.4 g/dL Normal 6.4-8.2 [facility] Comment on above: Performed By: #### L 500.2500, L500.3400, L501.5425, L501.2450 #### [facility] [address] [place], [address] 36on 11-13-2024 36 S: Patient called [facility] clinical access [place] with complaint of blood sugar 55 this [...] right back up over 200. Please call [phone] R: Telephone Appointment scheduled 11/13/[address] [...] week Protocols used: Diabetes - Low Blood Apudb-[id number] Normal [facility] Progress Noteon 11-13-2024 Progress Note [facility]IMARY [facility] - [address] [facility] [address] Dept: [phone] Dept Loc: [phone] Patient was identified and seen today via [...] stated that they are currently in the [facility]. If the patient is a minor, [...] orders. Jose Clarke DO 11/13/2024 12:14 PM [facility] 2911-08-2024 29 Addended by: JOSE TESFAYE on: 11/08/2024 12:49 PM Modules accepted: Orders [facility] 29 Addended by: MADHURI ROBISON on: 11/08/2024 11:43 AM Modules accepted: Orders [facility] 36on 11-08-2024 36 Message released to patient as written. Patient's further questions if applicable: Were all questions from office addressed or relayed to the patient from encounter: Yes. I released the message to the patient. No questions at this time. Please advise [facility] 36 Placed call to lula sims to discuss provider direction. Message left on voicemail to return call. Please release message to patient: Yes. The patient should continue glimepiride as directed [facility] 36 Name of caller: Holli levine Contact phone number: [phone] Relationship to Patient: patient Provider: Dr. Clarke [...] business hours to return their call: Yes [place] [address] Talked to patient an d relayed message and he will try those recommendations. Also patient is wanting to try the [employer] system as well. RX loaded Next ov 02/01/25 [facility] 36 Name of caller: holli coronel Contact phone number: [phone] Relationship to Patient: patient Provider: evy Practice: [...] business hours to return their call: Yes [facility] 36on 11-05-2024 36 Patient aware of res ults. Consent to increase his Jardiance to 25mg. Rx pended. Results faxed to Dr. Vines [facility] 36 ----- Message from Vibha Clarke [...] consents to. Copy of lab to his roof bolter Dr. Jasmyn Small [facility] 37on 10-30-2024 37 Restart Gabapentin t wice a day routinely for low back and leg pain [facility] Office Visiton 10-30-2024 Follow-up visit [id number] Sharron Joshi 1940 M Date Provider Department Center 10/30/2024 [id number]-OSPALMZPJOSE CLARKE [facility] Family History Problem Relation Age of Onset Colon cancer Mother Comments: age 82 Coronary artery disease Father Comments: [place], age 57 No Known Problems Sister Diabetes Sister Hypertension Brother Prostate cancer Brother 74 Comments: alive age 80 No Known Problems Brother Comments: in ECF, alive age 88 Prostate cancer Brother 70 Dementia Brother Comments: in ECF age 93 Family Status - Relation Status Age at Mother Father Sister Alive Sister Alive Brother Alive Brother Alive Brother Alive Level of Service:82092 [place] OFFICE/OUTPATIENT ESTABLISHED MOD MDM 30 MIN Reason for Visit and Comments: Follow-up [313013] - Med check [facility] Progress Noteon 10-30-2024 Progress Note [facility] - [address] [facility] [address] Visit type: Established Patient Reason for [...] kidney disease (HCC) 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 Essential hypertension Comments: [...] Name A (more content not included)... Normal [facility] [employer] [facility] 25-hydroxyvitamin D3 [Mass/V ol]on 10-19-2024 Interpretation and review of laboratory results Normal [facility] Target concentration : 30 - 40 ng/mL; toxicity seen at concentrations >100 ng/mL Therapy is based on measurement of Total 25-OHD with the following classification levels: Less than 20 ng/mL: Indicative of Vit D deficiency 20-30 ng/mL: Suggests Vit D insufficiency Optimal: Greater than or equal to 30 ng/mL Test performed by [employer] Competitive Immunoassay, measuring Total Vitamin D, not individual fractions. [facility] CBC (HEMOGRAM)on 10-19-2024 Erythrocyte distribution width (RBC) [Ratio] 13.1 % Normal 11.5-15.0 [facility] Comment on above: Performed By: #### L AB294 ####Pole Peeling Machine Operator: PIOTR JONES ([id number])[facility] (SWRL[facility])[address] [place] [address] Hematocrit (Bld) [Volume fraction] 45.2 % Normal 40.0-52.0 [facility] Comment on above: Performed By: #### L AB294 ####Pole Peeling Machine Operator: PIOTR JONES ([id number])[facility] [employer] (SWRL[facility])[address] [place] [address] Hemoglobin (Bld) [Mass/Vol] 14.8 g/dL Normal 13.0-18.0 [facility] Comment on above: Performed By: #### L AB294 ####P[employer] Pe[employer] Machine Operator: PIOTR JONES ([id number])[facility] [employer] ([facility])[address] [place] [address] MCH (RBC) [Entitic mass] 30.3 pg Normal 26.0-34.0 [facility] Comment on above: Performed By: #### L AB294 ####Pole Peeling Machine Operator: PIOTR JONES ([id number])[facility] [employer] ([facility])[address] [place] [address] MCHC 32.7 % Normal 30.5-36.0 [facility] Comment on above: Performed By: #### L AB294 ####P[employer] Pe[employer] Machine Operator: PIOTR JONES ([id number])[facility] [employer] ([facility]RL[facility])[address] [place] [address] MCV (RBC) [Entitic vol] 92.6 fL Normal 77.0-99.0 [facility] Comment on above: Performed By: #### L AB294 ####Pole Peeling Machine Operator: PIOTR JONES ([id number])[facility] (SWRL[facility])[address] [place] [address] Platelet mean volume (Bld) [Entitic vol] 9.3 fL Normal 9.0-12.7 [facility] Comment on above: Result Comment: MPV is a calculated measurement using platelet volume ratio Performed By: #### L AB294 ####P[employer] Peeling Machine Operator: PIOTR JONES ([id number])[facility] (SWRL[facility])[address] [place] [address] Platelets (Bld) [#/Vol] 380 10*3/uL Normal 140-440 [facility] Comment on above: Performed By: #### L AB294 ####Pole Peeling Machine Operator: PIOTR JONES ([id number])[facility] ([facility])[address] [place] [address] RBC (Bld) [#/Vol] 4.88 10*6/uL Normal 4.40-5.90 [facility] Comment on above: Performed By: #### L AB294 ####P[employer] Peeling Machine Operator: PIOTR JONES ([id number])[facility] ([facility]RL[facility])[address] [place] [address] WBC (Bld) [#/Vol] 9.9 10*3/uL Normal 3.6-10.7 [facility] Comment on above: Performed By: #### L AB294 ####P[employer] Pe[employer] Machine Operator: PIOTR JONES ([id number])[facility] ([facility]RL[facility])[address] [place] [address] CBC panel Auto (Bld)on 10-19 Erythrocyte distribution width (RBC) [Ratio] 13.1 % 11.5 - 15.0 % [facility] Hematocrit (Bld) [Volume fraction] 45.2 % 40.0 - 52.0 % [facility] Hemoglobin (Bld) [Mass/Vol] 14.8 g/dL 13.0 - 18.0 g/dL [facility] Interpretation and review of laboratory results Normal [facility] MCH (RBC) [Entitic mass] 30.3 pg 26.0 - 34.0 pg [facility] MCHC (RBC) [Mass/Vol] 32.7 % 30.5 - 36.0 % [facility] MCV (RBC) [Entitic vol] 92.6 fL 77.0 - 99.0 fL [facility] Platelet mean volume (Bld) [Entitic vol] 9.3 fL 9.0 - 12.7 fL [facility] Comment on above: MPV is a calculated measurement using platelet volume ratio Platelets (Bld) [#/Vol] 380 10*3/uL 140 - 440 10*3/uL [facility] RBC (Bld) [#/Vol] 4.88 10*6/uL 4.40 - 5.9 0 10*6/uL [facility] WBC (Bld) [#/Vol] 9.9 10*3/uL 3.6 - 10.7 10*3/uL [facility] CREATININE, URINE, RANDOMon 10-19-2024 CREATININE, URINE 184.1 mg/dL High 63.0-166.0 [facility] Comment on above: Result Comment: DEAN Melendez COMMENTS: Concentration is based on a daily urine output of 1.5 L. Performed By: #### L AB439, SCS196 ####Pole Peeling Machine Operator: PIOTR JONES ([id number])[facility] ([address] Creatinine (U) [Mass/Vol]on 10-19-2024 Concentration is bas ed on a daily urine output of 1.5 L. [facility] No Panel Informationon 10-19 CREATININE, URINE 184.1 mg/dL High 63.0 - 166.0 mg/dL [facility] Interpretation and review of laboratory results Abnormal [facility] PROTEIN, URINE, RANDOMon Protein (U) [Mass/Vol] 20 mg/dL High <14 [facility] Comment on above: Performed By: #### L AB439, BRU776 ####Pole Peeling Machine Operator: PIOTR JONES ([id number])[facility] (SWRLAB)[address] [place] [address] [place] PTH INTACTon 10-19-2024 PTH, INTACT 116.1 pg/mL Normal 22.6-120.3 [facility] Comment on above: Performed By: #### L AB108 ####Pole Peeling Machine Operator: MANUELA WYNN ([id number])[facility] (SBHLAB)[address] [place] [address] PTH, intacton 10-19-2024 Parathyrin.intact [Mass/Vol] 116.1 pg/mL 22.6 - 120.3 pg/mL [facility] Parathyrin.intact [Mass/Vol] on 10-19-2024 Interpretation and review of laboratory results Normal [facility] Protein, urine, randomon Protein (U) [Mass/Vol] 20 mg/dL High NINF - 14 mg/dL [facility] RENAL FUNCTION PANELon 10-19 Albumin [Mass/Vol] 3.7 g/dL Normal 3.4-4.8 [facility] Comment on above: Performed By: #### L AB19 ####Pole Peeling Machine Operator: PIOTR JONES ([id number])[facility] [employer] ([facility])[address] [place] [address] Anion gap [Moles/Vol] 10 mmol/L Normal 3-13 [facility] Comment on above: Performed By: #### L AB19 ####Pole Peeling Machine Operator: PIOTR JONES ([id number])[facility] [employer] (SWRL[facility])[address] [place] [address] Calcium [Mass/Vol] 9.5 mg/dL Normal 8.8-10.0 [facility] Comment on above: Performed By: #### L AB19 ####Pole Peeling Machine Operator: PIOTR JONES ([id number])[facility] [employer] (SWRL[facility])[address] [place] [address] [place] Chloride [Moles/Vol] 109 mmol/L High 98-107 [facility] Comment on above: Performed By: #### L AB19 ####Pole Peeling Machine Operator: PIOTR JONES ([id number])[facility] (SWRL[facility])[address] CO2 [Moles/Vol] 25 mmol/L Normal 23-31 [facility] Comment on above: Performed By: #### L AB19 ####Pole Peeling Machine Operator: PIOTR JONES ([id number])[facility] (SWRL[facility])[address] Creatinine [Mass/Vol] 1.93 mg/dL High 0.72-1.25 [facility] Comment on above: Performed By: #### L AB19 ####Pole Peeling Machine Operator: PIOTR JONES ([id number])[facility] [employer] [facility] (SWRL[facility])[address] [place] [address] [place] GLOMERULAR FILTRATION RATE ML/MIN/1.73 SQ M.PREDICTED 33.9 mL/min/1.73m*2 Low >60.0 [facility] Comment on above: Result Comment: Calc ulation based on the Chronic Kidney Disease Epidemiology Collaboration (CKD-EPI) equation refit without adjustment for race Performed By: #### L AB19 ####Pole Peeling Machine Operator: PIOTR JONES ([id number])[facility] [employer] ([facility]RL[facility])[address] [place] [address] [place] Glucose [Mass/Vol] 153 mg/dL High 82-115 [facility] Comment on above: Performed By: #### L AB19 ####Pole Peeling Machine Operator: PIOTR JONES ([id number])[facility] [employer] ([facility]RL[facility])[address] [place] [address] [place] Phosphate [Mass/Vol] 3.2 mg/dL Normal 2.3-4.7 [facility] Comment on above: Performed By: #### L AB19 ####Pole Peeling Machine Operator: PIOTR JONES ([id number])[facility] ASHLI [facility] (SWRLAB)[address] Potassium [Moles/Vol] 3.8 mmol/L Normal 3.5-5.1 [facility] Comment on above: Result Comment: Plas ma potassium values may be up to 0.5 mmol/L lower than serum values. Performed By: #### L AB19 ####Pole Peeling Machine Operator: PIOTR JONES ([id number])[facility] (SWRL[facility])[address] Sodium [Moles/Vol] 144 mmol/L Normal 136-145 [facility] Comment on above: Performed By: #### L AB19 ####Pole Peeling Machine Operator: PIOTR JONES ([id number])[facility] (SWRL[facility])[address] Urea nitrogen [Mass/Vol] 33 mg/dL High 9-23 [facility] Comment on above: Performed By: #### L AB19 ####Pole Peeling Machine Operator: PIOTR JONES ([id number])[facility] (SWRL[facility])[address] Renal function 2000 panelon 10-19-2024 Albumin [Mass/Vol] 3.7 g/dL 3.4 - 4.8 g/dL [facility] Anion gap [Moles/Vol] 10 mmol/L 3 - 13 mmol/L [facility] Calcium [Mass/Vol] 9.5 mg/dL 8.8 - 10. 0 mg/dL [facility] Chloride [Moles/Vol] 109 mmol/L High 98 - 10 7 mmol/L [facility] CO2 [Moles/Vol] 25 mmol/L 23 - 31 mmol/L [facility] Creatinine [Mass/Vol] 1.93 mg/dL High 0.72 - 1.25 mg/dL [facility] GFR/1.73 sq M.predicted (S/P/Bld) [Vol rate/Area] 33.9 mL/min Low - PINF [facility] Comment on above: Calculation based on the Chronic Kidney Disease Epidemiology Collaboration (CKD-EPI) equation refit without adjustment for race Glucose [Mass/Vol] 153 mg/dL High 82 - 115 mg/dL [facility] Interpretation and review of laboratory results Abnormal [facility] Phosphate [Mass/Vol] 3.2 mg/dL 2.3 - 4 .7 mg/dL [facility] Potassium [Moles/Vol] 3.8 mmol/L 3.5 - 5.1 mmol/L [facility] Comment on above: Plasma potassium [place] may be up to 0.5 mmol/L lower than serum values. Sodium [Moles/Vol] 144 mmol/L 136 - 145 mmol/L [facility] Urea nitrogen [Mass/Vol] 33 mg/dL High 9 - 23 mg/dL [facility] VITAMIN D DEFICIENCY SCREENI NG (VIT D 25)on 10-19-2024 VIT D 25-OH, TOTAL 31 ng/mL Normal >20 [facility] Comment on above: Result Comment: DEAN Melendez COMMENTS: Target concentration: 30 - 40 ng/mL; toxicity seen at concentrations >100 ng/mL Therapy is based on measurement of Total 25-OHD with the following classification levels: Less than 20 ng/mL: Indicative of Vit D deficiency 20-30 ng/mL: Suggests Vit D insufficiency Optimal: Greater than or equal to 30 ng/mL Test performed by [employer] Competitive Immunoassay, measuring Total Vitamin D, not individual fractions. Performed By: #### L [id number] ####Pole Peeling Machine Operator: PIOTR JONES ([id number])[facility] ([facility])[address] [place] [address] Vitamin D Deficiency Screeni ng (Vit D 25)on 10-19-2024 25-hydroxyvitamin D3 [Mass/Vol] 31 ng/mL 20 - PINF ng/mL [facility] 36on 09-19-2024 36 Recent Visits Date Type Provider Dept 07/03/24 Office Visit Jose Clarke DO [facility] 02/07/24 Office Visit Jose Clarke DO [facility] 11/08/23 Office Visit Jose Clarke DO [facility] Showing recent visits within past 365 days and meeting all other requirements Future Appointments Date Type Provider Dept 10/30/24 Appointment Jose Clarke DO [facility] Showing future appointments within next [...] 31 (H) 07/03/2024 CREATININE 1.56 (H) 07/03/2024 [facility] 36on 09-17-2024 36 Name of caller: Holli Joshi Contact phone number: [phone] Relationship to Patient: patient Provider: Dr. Clarke Practice: [facility] Chief Complaint/Reason for Call: FYI Pt wanted to let Dr. Clarke know that his new Rx for empagliflozin (Jardiance) 10 MG is working. Thank you. Best time of day caller can be reached: Any Patient advised that office/PCP has 24-48 business hours to return their call: Yes Bocada [facility] 36 Medication name: One touch ultra [...] prior to picking up the medication: Yes [facility] 36on 09-14-2024 36 Me CW 09/14/24 11:58 AM Note Pt advised and said he picked up medication. Bocada [facility] 36 Pt advised and said he picked up medication. Bocada [facility] [employer] [facility] 36on 09-13-2024 36 Called patient to re lay message from Dr. Clarke, phone line picked up and went silent both attempts to call. Bocada [facility] [employer] [facility] 36 Message released to patient as written. [...] said he would like it sent to [facility] [place]. Is he to continue all other medication? Please advise Bocada [facility] [employer] [place] [id number] Left message for anil uriostegui to return call to the office, please release information to patient [facility] [employer] [facility] 36 S: Patient spoke blayne bolaños [facility] nurse regarding elevated blood sugars B: Onset [...] mmol/L) Protocols used: Diabetes - High Blood [id number] [place] [id number] 36 Pended Recent Visits Date Type Provider Dept 07/03/24 Office Visit Jose Clarke, DO [facility] 02/07/24 Office Visit Jose Clarke DO [facility] 11/08/23 Office Visit Jose Clarke DO [facility] Showing recent visits within past 365 days and meeting all other requirements Future Appointments Date Type Provider Dept 10/30/24 Appointment Jose Clarke DO [facility] Showing future appointments within next [...] Most recent labs completed in chart? N/A [place] [id number] 36 Noted and form has b een faxed to [facility] 07-18-2024 36 Name of caller: Hollimarivel levine Contact phone number: [phone] Relationship to Patient: patient Provider: Dr Clarke Practice: [facility] Chief Complaint/Reason for Call: Patient returned call and states that he has One Touch Delica Plus Lancets 100ct , 33 gauge. FYI Best time of day caller can be reached: any Patient advised that office/PCP has 24-48 business hours to return their call: N/A [facility] 36 [facility] wants us to find out what brand and gauge lancets that Kenny uses. I have left message. [facility] 36on 07-12-2024 36 Rx loaded [facility] 36 Ordering provider: Kaz granados Date [...] of last refill (see medication tab): 12.14.2023 [facility] Office Visiton 07-03-2024 Follow-up visit [id number] Sharron Joshi 1940 M Date Provider Department Center 07/03/2024 [id number] [id number] [facility] Family History Problem Relation Age of Onset Colon cancer Mother Comments: age 82 Coronary artery disease Father Comments: [place], age 57 No Known Problems Sister Diabetes Sister Hypertension Brother Prostate cancer Brother 74 Comments: alive age 80 No Known Problems Brother Comments: in ECF, alive age 88 Prostate cancer Brother 70 Dementia Brother Comments: in ECF age 92 Family Status - Relation Status Age at Mother Father Sister Alive Sister Alive Brother Alive Brother Alive Brother Alive Level of Service:[id number] [place] PP[place], SUBSEQ VISIT Reason for Visit and Comments: Medicare Annual Wellness Visit Subsequent [677] Normal [facility] PATINSon 07-03-2024 PATINS Personalized Prevent ative [...] Recommendations: A preventive eye exam by an medical specialist is recommended every 1-2 years to screen for glaucoma, cataracts, macular degeneration, and other eye disorders. A preventive dental visit is recommended every 6 months. Try to get at least 150 minutes of exercise per week or 10,000 steps per day on a pedometer. You need 1200-1500mg of calcium and [id number] international units of vitamin D per day. [...] riding a bicycle or a motorcycle Normal [facility] Progress Noteon 07-03-2024 Progress Note [facility] [address] [place] [address] [address] [facility] [address] Dept: [phone] Dept Chief Complaint: Brian Joshi is an [...] found. Subje (more content not included)... Normal [facility] 36on 06-18-2024 36 Recent Visits Date Type Provider Dept 02/07/24 Office Visit Jose Clarke DO [facility] 11/08/23 Office Visit Jose Clarke DO [facility] Showing recent visits within past 365 days and meeting all other requirements Future Appointments Date Type Provider Dept 07/03/24 Appointment Jose Clarke DO [facility] Showing future appointments within next [...] CHOLESTEROLT 111 02/07/2024 TRIG 93 06/17/2022 Normal [facility] 25-hydroxyvitamin D3 [Mass/V ol]on 10-21-2023 Interpretation and review of laboratory results Normal [facility] Therapy is based on measurement of Total 25-OHD with the following classification levels: Less than 20 ng/mL: Indicative of Vit D deficiency 20-30 ng/mL: Suggests Vit D insufficiency Optimal: Greater than or equal to 30 ng/mL Test performed by [employer] Competitive Immunoassay, measuring Total Vitamin D, not individual fractions. [facility] CBC panel Auto (Bld)Ordered By: Bethany Salazar on 10-21-2023 Erythrocyte distribution width (RBC) [Ratio] 12.6 % 11.5 - 14.5 % [facility] Hematocrit (Bld) [Volume fraction] 40.8 % 40.0 - 52.0 % [facility] Hemoglobin (Bld) [Mass/Vol] 13.5 g/dL 13.0 - 18.0 g/dL [facility] Interpretation and review of laboratory results Abnormal [facility] MCH (RBC) [Entitic mass] 30.2 pg 26.0 - 34.0 pg [facility] MCHC (RBC) [Mass/Vol] 33.1 % 32.0 - 36.0 % [facility] MCV (RBC) [Entitic vol] 91.3 fL 80.0 - 98.0 fL [facility] Platelet mean volume (Bld) [Entitic vol] 9.3 fL 7.4 - 12.4 fL [facility] Comment on above: MPV is a calculated measurement using platelet volume ratio Platelets (Bld) [#/Vol] 420 10*3/uL 140 - 440 10*3/uL [facility] RBC (Bld) [#/Vol] 4.47 10*6/uL 4.40 - 5.9 0 10*6/uL [facility] WBC (Bld) [#/Vol] 11.9 10*3/uL High 3.6 - 10.7 10*3/uL [facility] Creatinine (U) [Mass/Vol]on 10-21-2023 CREATININE, URINE 430.3 mg/dL No Range [facility] PTH, intacton 10-21-2023 Parathyrin.intact [Mass/Vol] 85.1 pg/mL High 7.5 - 53.5 pg/mL [facility] Parathyrin.intact [Mass/Vol] on 10-21-2023 Interpretation and review of laboratory results Abnormal [facility] Protein, urine, randomon Interpretation and review of laboratory results Abnormal [facility] Protein (U) [Mass/Vol] 28 mg/dL High 0 - 12 mg/dL [facility] Renal function 2000 panelon 10-21-2023 Albumin [Mass/Vol] 4.1 g/dL 3.5 - 5.0 g/dL [facility] Anion gap [Moles/Vol] 11 mmol/L 3 - 13 mmol/L [facility] Calcium [Mass/Vol] 9.1 mg/dL 8.4 - 10. 4 mg/dL [facility] Chloride [Moles/Vol] 105 mmol/L 98 - 10 7 mmol/L [facility] CO2 [Moles/Vol] 25 mmol/L 22 - 30 mmol/L [facility] Creatinine [Mass/Vol] 1.73 mg/dL High 0.66 - 1.25 mg/dL [facility] GFR/1.73 sq M.predicted MDRD (S/P/Bld) [Vol rate/Area] 38.9 mL/min/{1.73_m2} Low - PINF [facility] Comment on above: Calculation based on the Chronic Kidney Disease Epidemiology Collaboration (CKD-EPI) equation refit without adjustment for race Glucose [Mass/Vol] 219 mg/dL High 70 - 100 mg/dL [facility] Interpretation and review of laboratory results Abnormal [facility] Phosphate [Mass/Vol] 3.1 mg/dL 2.5 - 4 .5 mg/dL [facility] Potassium [Moles/Vol] 3.7 mmol/L 3.5 - 5.1 mmol/L [facility] Sodium [Moles/Vol] 141 mmol/L 135 - 145 mmol/L [facility] Urea nitrogen [Mass/Vol] 35 mg/dL High 9 - 20 mg/dL [facility] Vitamin D Deficiency Screeni ng (Vit D 25)on 10-21-2023 25-hydroxyvitamin D3 [Mass/Vol] 34 ng/mL 30 - 100 ng/mL [facility] Absolute lymphocyte countOrd ered By: Dr. Quesada on 02-03-2023 Lymphocytes Auto (Unsp spec) [#/Vol] 1.42 10*3/uL 0.83-4.51 [facility] Basophil percentageOrdered B y: Dr. Quesada on 02-03-2023 Basophils/100 WBC (Bld) 0.9 % 0-1 [facility] Chloride [Moles/Vol] 106 mmol/L 98-107 [facility] Eosinophils/100 WBC (Bld) 0.8 % 0-5 [facility] Glucose [Mass/Vol] 235 mg/dL 74-106 [facility] Comment on above: Glucose result great er than or equal to 200 mg/dLsuggests DIABETES MELLITUS per A.D.A. criteria. Neutrophils (Bld) [#/Vol] 8.1 10*3/uL 2.0-7.7 [facility] Neutrophils/100 WBC (Bld) 74.8 % 47-70 [facility] Potassium [Moles/Vol] 3.8 mmol/L 3.5-5.1 [facility] Sodium [Moles/Vol] 140 mmol/L 136-145 [facility] WBC (Bld) [#/Vol] 10.8 10*3/uL 4.4-11.0 [facility] Blood erythrocytes count (nu mber/volume)Ordered By: Dr. Quesada on 02-03-2023 RBC (Bld) [#/Vol] 4.58 10*6/uL 4.6-6.2 [facility] Blood hemoglobin measurement (mass/volume)Ordered By: Dr. Quesada on 02-03-2023 Hemoglobin (Bld) [Mass/Vol] 13.9 g/dL 13.0-16.5 [facility] Blood lymphocytes/100 leukoc ytesOrdered By: Dr. Quesada on 02-03-2023 Lymphocytes/100 WBC (Bld) 13.1 % 19-41 [facility] Blood monocytes/100 leukocyt esOrdered By: Dr. Quesada on 02-03-2023 Monocytes/100 WBC (Bld) 9.3 % 0-10 [facility] Blood platelet mean volumeOr dered By: Dr. Quesada on 02-03-2023 Platelet mean volume (Bld) [Entitic vol] 9.9 fL 6.2-12.0 [facility] Determination of erythrocyte mean corpuscular volume (MCV)Ordered By: Dr. Quesada on 02-03-2023 MCV (RBC) [Entitic vol] 94.3 fL 80-94 [facility] Hematocrit Auto (Bld) [Volum e fraction]Ordered By: Dr. Quesada on 02-03-2023 Hematocrit (Bld) [Volume fraction] 43.2 % 40-54 [facility] Laboratory - Chemistry and C hemistry - challengeOrdered By: Dr. Quesada on 02-03-2023 CO2 [Moles/Vol] 27.0 mmol/L 21.0-32.0 [facility] Urea nitrogen/Creatinine [Mass ratio] 25.9 mg/mg 10-20 [facility] Laboratory - Hematology and Cell countsOrdered By: Dr. Quesada on 02-03-2023 Erythrocyte distribution width (RBC) [Entitic vol] 43.9 fL 35.1-43.9 [facility] Erythrocyte distribution width (RBC) [Ratio] 12.7 % 11.6-14.6 [facility] Immature granulocytes/100 WBC (Bld) 1.100 % 0.0-0.9 [facility] Comment on above: IG% - Immature Granu locytes (promyelocytes, myelocytes and metamyelocytes) > 1% indicates that a LEFT SHIFT is Present. MCH (RBC) [Entitic mass] 30.3 pg 27.0-32.0 [facility] Nucleated RBC/100 WBC (Bld) [Ratio] 0 % 0-5 [facility] MCHC Auto (RBC) [Mass/Vol]Or dered By: Dr. Quesada on 02-03-2023 MCHC (RBC) [Mass/Vol] 32.2 g/dL 32-36 [facility] No Panel InformationOrdered By: Dr. Quesada on 02-03-2023 Estimated Creatinine Clearance Calc 34.60 ml/min [facility] Estimated GFR (MDRD) Amer 53 mL/min >60 [facility] Comment on above: GFR Calc Estimated GFR (MDRD) Non-Af Amer 44 mL/min >60 [facility] Comment on above: Non- GFR Calc Platelets bldOrdered By: Dr. Quesada on 02-03-2023 Platelets (Bld) [#/Vol] 426 10*3/uL 150-450 [facility] Serum or plasma calcium galen urement (mass/volume)Ordered By: Dr. Quesada on 02-03-2023 Calcium [Mass/Vol] 9.3 mg/dL 8.5-10.1 [facility] Serum or plasma creatinine m easurement (mass/volume)Ordered By: Dr. Quesada on 02-03-2023 Creatinine [Mass/Vol] 1.62 mg/dL 0.70-1.30 [facility] Comment on above: The validity of the calculated GFR & GFRAA in patients over 70 years has not been determined. Clinical correlation is essential. Serum or plasma urea nitroge n measurement (mass/volume)Ordered By: Dr. Quesada on 02-03-2023 Urea nitrogen [Mass/Vol] 42 mg/dL 7-18 [facility] Thin prep Papanicolaou smear with manual screeningOrdered By: Dr. Quesada on 02-03-2023 Thin prep Papanicolaou smear with manual screening 7 5-15 [facility] Basic metabolic 1998 panelon 10-27-2022 Anion gap [Moles/Vol] 7 mmol/L 3 - 13 mmol/L [facility] Calcium [Mass/Vol] 9.4 mg/dL 8.4 - 10. 4 mg/dL [facility] Chloride [Moles/Vol] 108 mmol/L High 98 - 10 7 mmol/L [facility] CO2 [Moles/Vol] 27 mmol/L 22 - 30 mmol/L [facility] Creatinine [Mass/Vol] 1.50 mg/dL High 0.66 - 1.25 mg/dL [facility] GFR/1.73 sq M.predicted MDRD (S/P/Bld) [Vol rate/Area] 46.5 mL/min/{1.73_m2} Low - PINF [facility] Comment on above: Calculation based on the Chronic Kidney Disease Epidemiology Collaboration (CKD-EPI) equation refit without adjustment for race Glucose [Mass/Vol] 203 mg/dL High 70 - 100 mg/dL [facility] Interpretation and review of laboratory results Abnormal [facility] Potassium [Moles/Vol] 3.8 mmol/L 3.5 - 5.1 mmol/L [facility] Sodium [Moles/Vol] 141 mmol/L 135 - 145 mmol/L [facility] Urea nitrogen [Mass/Vol] 39 mg/dL High 9 - 20 mg/dL [facility] Creatinine (U) [Mass/Vol]on 10-27-2022 CREATININE, URINE 195.8 mg/dL No Range [facility] No Panel Informationon 10-27 [facility] [employer] PTH, intacton 10-27-2022 Parathyrin.intact [Mass/Vol] 42.0 pg/mL 7.5 - 53.5 pg/mL [facility] Parathyrin.intact [Mass/Vol] on 10-27-2022 Interpretation and review of laboratory results Normal [facility] Protein, urine, randomon Interpretation and review of laboratory results Abnormal [facility] Protein (U) [Mass/Vol] 21 mg/dL High 0 - 12 mg/dL [facility] Glucose Glucometer (BldC) [M ass/Vol]on 09-13-2022 Glucose [Mass/Vol] 96 mg/dL 74-106 [facility] Work Phone: Comment on above: MANAGEMENT OF PATIEN T CARE PER NURSING PROTOCOL Absolute lymphocyte counton 09-09-2022 Lymphocytes Auto (Unsp spec) [#/Vol] 2.18 10*3/uL 0.83-4.51 [facility] Work Phone: Basophil percentageon 2021 Basophils/100 WBC (Bld) 1.6 % 0-1 [facility] Work Phone: Chloride [Moles/Vol] 108 mmol/L 98-107 [facility] Work Phone: Eosinophils/100 WBC (Bld) 7.6 % 0-5 [facility] Work Phone: Glucose [Mass/Vol] 108 mg/dL 74-106 [facility] Work Phone: Comment on above: Fasting Glucose resu lt from 100 to 125 mg/dL suggests IMPAIRED HOMEOSTASIS per A.D.A. criteria. Neutrophils (Bld) [#/Vol] 6.8 10*3/uL 2.0-7.7 [facility] Work Phone: Neutrophils/100 WBC (Bld) 58.9 % 47-70 [facility] Work Phone: Potassium [Moles/Vol] 3.9 mmol/L 3.5-5.1 [facility] Work Phone: Sodium [Moles/Vol] 141 mmol/L 136-145 [facility] Work Phone: WBC (Bld) [#/Vol] 11.6 10*3/uL 4.4-11.0 [facility] Work Phone: Blood erythrocytes count (nu mber/volume)on 09-09-2022 RBC (Bld) [#/Vol] 3.25 10*6/uL 4.6-6.2 [facility] Work Phone: Blood hemoglobin measurement (mass/volume)on 09-09-2022 Hemoglobin (Bld) [Mass/Vol] 9.7 g/dL 13.0-16.5 [facility] Work Phone: Blood lymphocytes/100 leukoc yteson 09-09-2022 Lymphocytes/100 WBC (Bld) 18.8 % 19-41 [facility] Work Phone: Blood monocytes/100 leukocyt eson 09-09-2022 Monocytes/100 WBC (Bld) 11.3 % 0-10 [facility] Work Phone: Blood platelet mean volumeon 09-09-2022 Platelet mean volume (Bld) [Entitic vol] 8.6 fL 6.2-12.0 [facility] Work Phone: Determination of erythrocyte mean corpuscular volume (MCV)on 09-09-2022 MCV (RBC) [Entitic vol] 94.8 fL 80-94 [facility] Work Phone: Hematocrit Auto (Bld) [Volum e fraction]on 09-09-2022 Hematocrit (Bld) [Volume fraction] 30.8 % 40-54 [facility] Work Phone: Laboratory - Chemistry and C hemistry - challengeon 09-09-2022 CO2 [Moles/Vol] 29.0 mmol/L 21.0-32.0 [facility] Work Phone: Urea nitrogen/Creatinine [Mass ratio] 18.8 mg/mg 10-20 [facility] Work Phone: Laboratory - Hematology and Cell countson 09-09-2022 Erythrocyte distribution width (RBC) [Entitic vol] 46.0 fL 35.1-43.9 [facility] Work Phone: Erythrocyte distribution width (RBC) [Ratio] 13.2 % 11.6-14.6 [facility] Work Phone: Immature granulocytes/100 WBC (Bld) 1.800 % 0.0-0.9 [facility] Work Phone: Comment on above: IG% - Immature Granu locytes (promyelocytes, myelocytes and metamyelocytes) > 1% indicates that a LEFT SHIFT is Present. MCH (RBC) [Entitic mass] 29.8 pg 27.0-32.0 [facility] Work Phone: Nucleated RBC/100 WBC (Bld) [Ratio] 0 % 0-5 [facility] Work Phone: [phone] MCHC Auto (RBC) [Mass/Vol]on 09-09-2022 MCHC (RBC) [Mass/Vol] 31.5 g/dL 32-36 [facility] Work Phone: No Panel Informationon 09-09 Estimated Creatinine Clearance Calc 46.08 ml/min [facility] Work Phone: [phone] Estimated GFR (MDRD) Amer 64 mL/min >60 [facility] Work Phone: Comment on above: GFR Calc Estimated GFR (MDRD) Non-Af Amer 53 mL/min >60 [facility] Work Phone: Comment on above: Non- GFR Calc Platelets bldon 09-09-2022 Platelets (Bld) [#/Vol] 560 10*3/uL 150-450 [facility] Work Phone: [phone] Serum or plasma calcium galen urement (mass/volume)on 09-09-2022 Calcium [Mass/Vol] 8.6 mg/dL 8.5-10.1 [facility] Work Phone: [phone] Serum or plasma creatinine m easurement (mass/volume)on 09-09-2022 Creatinine [Mass/Vol] 1.38 mg/dL 0.70-1.30 [facility] Work Phone: Comment on above: The validity of the calculated GFR & GFRAA in patients over 70 years has not been determined. Clinical correlation is essential. Serum or plasma urea nitroge n measurement (mass/volume)on 09-09-2022 Urea nitrogen [Mass/Vol] 26 mg/dL 7-18 [facility] Work Phone: [phone] Thin prep Papanicolaou smear with manual screeningon 09-09-2022 Thin prep Papanicolaou smear with manual screening 4 5-15 [facility] Work Phone: [phone] Absolute lymphocyte counton 09-01-2022 Lymphocytes Auto (Unsp spec) [#/Vol] 1.47 10*3/uL 0.83-4.51 [facility] Work Phone: Basophil percentageon 2021 Basophils/100 WBC (Bld) 0.9 % 0-1 [facility] Work Phone: Bilirubin [Mass/Vol] 0.70 mg/dL 0.20-1.00 [facility] Work Phone: Comment on above: For patients on eltr ombopag therapy, use of Dimension [place] TBIL is not recommended. Chloride [Moles/Vol] 110 mmol/L 98-107 [facility] Work Phone: Eosinophils/100 WBC (Bld) 3.3 % 0-5 [facility] Work Phone: Glucose [Mass/Vol] 133 mg/dL 74-106 [facility] Work Phone: Comment on above: Fasting Glucose resu lt greater than or equal to 126 mg/dL suggests DIABETES MELLITUS per A.D.A. criteria. Neutrophils (Bld) [#/Vol] 8.4 10*3/uL 2.0-7.7 [facility] Work Phone: Neutrophils/100 WBC (Bld) 69.9 % 47-70 [facility] Work Phone: Potassium [Moles/Vol] 3.3 mmol/L 3.5-5.1 [facility] Work Phone: Protein [Mass/Vol] 5.4 g/dL 6.4-8.2 [facility] Work Phone: Sodium [Moles/Vol] 142 mmol/L 136-145 [facility] Work Phone: WBC (Bld) [#/Vol] 12.0 10*3/uL 4.4-11.0 [facility] Work Phone: Blood erythrocytes count (nu mber/volume)on 09-01-2022 RBC (Bld) [#/Vol] 3.09 10*6/uL 4.6-6.2 [facility] Work Phone: Blood hemoglobin measurement (mass/volume)on 09-01-2022 Hemoglobin (Bld) [Mass/Vol] 9.8 g/dL 13.0-16.5 [facility] Work Phone: Blood lymphocytes/100 leukoc yteson 09-01-2022 Lymphocytes/100 WBC (Bld) 12.3 % 19-41 [facility] Work Phone: Blood manual differential co mment interpretation (narrative result)on 09-01-2022 Manual differential comment Ancelmo (Bld) [Interp] SCANNED [facility] Work Phone: Blood monocytes/100 leukocyt eson 09-01-2022 Monocytes/100 WBC (Bld) 13.1 % 0-10 [facility] Work Phone: Blood platelet mean volumeon 09-01-2022 Platelet mean volume (Bld) [Entitic vol] 9.7 fL 6.2-12.0 [facility] Work Phone: Determination of erythrocyte mean corpuscular volume (MCV)on 09-01-2022 MCV (RBC) [Entitic vol] 92.6 fL 80-94 [facility] Work Phone: Glucose Glucometer (BldC) [M ass/Vol]on 09-01-2022 Glucose [Mass/Vol] 171 mg/dL 74-106 [facility] Work Phone: Comment on above: MANAGEMENT OF PATIEN T CARE PER NURSING PROTOCOL Hematocrit Auto (Bld) [Volum e fraction]on 09-01-2022 Hematocrit (Bld) [Volume fraction] 28.6 % 40-54 [facility] Work Phone: Laboratory - Chemistry and C hemistry - challengeon 09-01-2022 ALP [Catalytic activity/Vol] 62 U/L 45-117 [facility] Work Phone: [phone] ALT [Catalytic activity/Vol] 10 U/L 16-61 [facility] Work Phone: [phone] CO2 [Moles/Vol] 29.0 mmol/L 21.0-32.0 [facility] Work Phone: [phone] Globulin (S) [Mass/Vol] 3.2 g/dL 2.2-4.2 [facility] Work Phone: [phone] Urea nitrogen/Creatinine [Mass ratio] 20.0 mg/mg 10-20 [facility] Work Phone: [phone] Laboratory - Hematology and Cell countson 09-01-2022 Erythrocyte distribution width (RBC) [Entitic vol] 43.7 fL 35.1-43.9 [facility] Work Phone: [phone] Erythrocyte distribution width (RBC) [Ratio] 12.9 % 11.6-14.6 [facility] Work Phone: [phone] Immature granulocytes/100 WBC (Bld) 0.500 % 0.0-0.9 [facility] Work Phone: [phone] Comment on above: IG% - Immature Granu locytes (promyelocytes, myelocytes and metamyelocytes) > 1% indicates that a LEFT SHIFT is Present. MCH (RBC) [Entitic mass] 31.7 pg 27.0-32.0 [facility] Work Phone: [phone] Nucleated RBC/100 WBC (Bld) [Ratio] 0 % 0-5 [facility] Work Phone: [phone] MCHC Auto (RBC) [Mass/Vol]on 09-01-2022 MCHC (RBC) [Mass/Vol] 34.3 g/dL 32-36 [facility] Work Phone: [phone] Panel Informationon 09-01 Estimated Creatinine Clearance Calc 48.91 ml/min [facility] Work Phone: [phone] Estimated GFR (MDRD) Amer 68 mL/min >60 [facility] Work Phone: [phone] Comment on above: GFR Calc Estimated GFR (MDRD) Non-Af Amer 56 mL/min >60 [facility] Work Phone: Comment on above: Non- GFR Calc Platelets bldon 09-01-2022 Platelets (Bld) [#/Vol] 268 10*3/uL 150-450 [facility] Work Phone: Review by pathologiston Pathologist review Ancelmo (Unsp spec) [Interp] Reviewed [facility] Work Phone: Comment on above: Previous reported re sult: Gissel ranulfo Edited by: RGOAMANDA on 09/02/22:940Leukocytosis. Normocytic anemia.Clinical correlation necessary.Billy Munguia M.D. 09/02/22 AMENDED REPORT 09/02/22940 PATH REV previously reported as: February ranulfo Serum or plasma albumin galen urement (mass/volume)on 09-01-2022 Albumin [Mass/Vol] 2.2 g/dL 3.2-5.0 [facility] Work Phone: [phone] Serum or plasma albumin/glob ulin mass ratioon 09-01-2022 Albumin/Globulin [Mass ratio] 0.7 {ratio} 0.9-2.4 [facility] Work Phone: Serum or plasma calcium galen urement (mass/volume)on 09-01-2022 Calcium [Mass/Vol] 8.2 mg/dL 8.5-10.1 [facility] Work Phone: Serum or plasma creatinine m easurement (mass/volume)on 09-01-2022 Creatinine [Mass/Vol] 1.30 mg/dL 0.70-1.30 [facility] Work Phone: Comment on above: The validity of the calculated GFR & GFRAA in patients over 70 years has not been determined. Clinical correlation is essential. Serum or plasma urea nitroge n measurement (mass/volume)on 09-01-2022 Urea nitrogen [Mass/Vol] 26 mg/dL 7-18 [facility] Work Phone: Thin prep Papanicolaou smear with manual screeningon 09-01-2022 Thin prep Papanicolaou smear with manual screening 22 U/L 15-37 [facility] Work Phone: Thin prep Papanicolaou smear with manual screening 3 5-15 [facility] Work Phone: [phone] Whole blood hemoglobin A1c/t otal hemoglobin ratio (mass fraction)on 08-29-2022 HbA1c (Bld) [Mass fraction] 7.0 % 3.8-5.6 [facility] Work Phone: Comment on above: Normal < 5.7 % Predi abetic 5.7 - 6.4 % Diabetic >or= 6.5 % Please note range changes. Basophil percentageon 2021 Chloride [Moles/Vol] 107 mmol/L 98-107 [facility] Work Phone: [phone] Glucose [Mass/Vol] 180 mg/dL 74-106 [facility] Work Phone: Comment on above: Fasting Glucose resu lt greater than or equal to 126 mg/dL suggests DIABETES MELLITUS per A.D.A. criteria. Potassium [Moles/Vol] 3.7 mmol/L 3.5-5.1 [facility] Work Phone: Comment on above: Slight Hemolysis, Re sult may be falsely increased. Sodium [Moles/Vol] 140 mmol/L 136-145 [facility] Work Phone: WBC (Bld) [#/Vol] 19.3 10*3/uL 4.4-11.0 [facility] Work Phone: [phone] Blood erythrocytes count (nu mber/volume)on 08-28-2022 RBC (Bld) [#/Vol] 4.45 10*6/uL 4.6-6.2 [facility] Work Phone: [phone] Blood hemoglobin measurement (mass/volume)on 08-28-2022 Hemoglobin (Bld) [Mass/Vol] 13.6 g/dL 13.0-16.5 [facility] Work Phone: [phone] Blood platelet mean volumeon 08-28-2022 Platelet mean volume (Bld) [Entitic vol] 9.7 fL 6.2-12.0 [facility] Work Phone: Determination of erythrocyte mean corpuscular volume (MCV)on 08-28-2022 MCV (RBC) [Entitic vol] 92.6 fL 80-94 [facility] Work Phone: [phone] Hematocrit Auto (Bld) [Volum e fraction]on 08-28-2022 Hematocrit (Bld) [Volume fraction] 41.2 % 40-54 [facility] Work Phone: [phone] INR in Blood by Coagulation assayon 08-28-2022 INR Coag (Bld) [Relative time] 1.0 {INR} [facility] Work Phone: [phone] Laboratory - Chemistry and C hemistry - challengeon 08-28-2022 CO2 [Moles/Vol] 25.0 mmol/L 21.0-32.0 [facility] Work Phone: [phone] Urea nitrogen/Creatinine [Mass ratio] 22.4 mg/mg 10-20 [facility] Work Phone: [phone] Laboratory - Coagulationon 10-28-2021 aPTT Coag (Bld) [Time] 28.0 s 24.1-36.2 [facility] Work Phone: [phone] PT Coag (PPP) [Time] 12.9 s 11.7-14.9 [facility] Work Phone: [phone] Laboratory - Hematology and Cell countson 08-28-2022 Erythrocyte distribution width (RBC) [Entitic vol] 43.1 fL 35.1-43.9 [facility] Work Phone: [phone] Erythrocyte distribution width (RBC) [Ratio] 12.7 % 11.6-14.6 [facility] Work Phone: [phone] MCH (RBC) [Entitic mass] 30.6 pg 27.0-32.0 [facility] Work Phone: MCHC Auto (RBC) [Mass/Vol]on 08-28-2022 MCHC (RBC) [Mass/Vol] 33.0 g/dL 32-36 [facility] Work Phone: No Panel Informationon 08-28 Estimated Creatinine Clearance Calc 39.02 ml/min [facility] Work Phone: Estimated GFR (MDRD) Amer 53 mL/min >60 [facility] Work Phone: Comment on above: GFR Calc Estimated GFR (MDRD) Non-Af Amer 44 mL/min >60 [facility] Work Phone: Comment on above: Non- GFR Calc Platelets bldon 08-28-2022 Platelets (Bld) [#/Vol] 352 10*3/uL 150-450 [facility] Work Phone: Serum or plasma calcium galen urement (mass/volume)on 08-28-2022 Calcium [Mass/Vol] 9.0 mg/dL 8.5-10.1 [facility] Work Phone: Serum or plasma creatinine m easurement (mass/volume)on 08-28-2022 Creatinine [Mass/Vol] 1.61 mg/dL 0.70-1.30 [facility] Work Phone: Comment on above: The validity of the calculated GFR & GFRAA in patients over 70 years has not been determined. Clinical correlation is essential. Serum or plasma urea nitroge n measurement (mass/volume)on 08-28-2022 Urea nitrogen [Mass/Vol] 36 mg/dL 7-18 [facility] Work Phone: Thin prep Papanicolaou smear with manual screeningon 08-28-2022 Thin prep Papanicolaou smear with manual screening 8 5-15 [facility] Work Phone: CR Hip w/ Pelvis 2 or 3 View s Lefton 03-10-2022 CR Hip w/ Pelvis 2 or 3 Views Left Patient Name: BRIAN JOSHI Diagnostic Radiology ACCESSION EXAM DATE/TIME PROCEDURE ORDERING PROVIDER [id number] 03/10/2022 10:11 EDT CR Hip w/ Pelvis 2 or 3 DO CLARKE EUGENE F. Views Left n CPT code 07947 Reason For Exam (CR Hip w/ Pelvis [...] Transcribed Date and Time: 03/10/2022 9:52 Normal [facility] CR Spine Lumbosacral 4+ View son 03-10-2022 CR Spine Lumbosacral 4+ Views [facility]: [id number] ACCESSION EXAM DATE/TIME PROCEDURE ORDERING PROVIDER [id number] 03/10/2022 10:11 EDT CR Spine Lumbosacral 4+ DO CLARKE EUGENE F. Views CPT code 08536 Reason For Exam (CR Spine Lumbosacral 4+ [...] Transcribed Date and Time: 03/10/2022 9:52 Normal [facility] XR HIP LEFT (2-3 VIEWS)on Patient Name: BRIAN BRADLEY Diagnostic Radiology ACCESSION EXAM DATE/TIME PROCEDURE ORDERING PROVIDER [id number] 03/10/2022 10:11 EDT CR Hip w/ Pelvis 2 or 3 DO CLARKE EUGENE F. Views Left n CPT code 39833 Reason For Exam (CR Hip w/ Pelvis [...] JEFFREY Transcribed Date and Time: 03/10/2022 9:52 [facility] Aurelio Rick MD - 03/10/2022 Patient Name: BRIAN JOSHI Diagnostic Radiology ACCESSION EXAM DATE/TIME PROCEDURE ORDERING PROVIDER [id number] 03/10/2022 10:11 EDT CR Hip w/ Pelvis 2 or 3 DO CLARKE EUGENE F. Views Left n CPT code 02447 Reason For Exam (CR Hip w/ Pelvis [...] JEFFREY Transcribed Date and Time: 03/10/2022 9:52 [facility] Work Phone: [facility] Work Phone: Radiology Study observation (narrative) [facility] Work Phone: XR LUMBAR SPINE (MIN 4 VIEWS )on 03-10-2022 Patient Name: BRIAN BRADLEY [facility]#: [id number] Diagnostic Radiology ACCESSION EXAM DATE/TIME PROCEDURE ORDERING PROVIDER [id number] 03/10/2022 10:11 EDT CR Spine Lumbosacral 4+ DO CLARKE EUGENE F. Views CPT code 98669 Reason For Exam (CR Spine Lumbosacral 4+ [...] JEFFREY Transcribed Date and Time: 03/10/2022 9:52 [facility] Aurelio Rick MD - 03/10/2022 Patient Name: BRIAN JOSHI Diagnostic Radiology ACCESSION EXAM DATE/TIME PROCEDURE ORDERING PROVIDER [id number] 03/10/2022 10:11 EDT CR Spine Lumbosacral 4+ DO CLARKE EUGENE F. Views CPT code 67192 Reason For Exam (CR Spine Lumbosacral 4+ [...] VIEWS )Ordered By: Aurelio Rick on 03-10-2022 [facility] Work Phone: Creatinine, Ur Randomon 02- Creatinine, Ur Random 123.9 mg/dL Normal No Range [facility] Comment on above: Performed By: #### P TH3, VD25H ####[address] [place] [address]#### RENL3, CRTUR, HEMOG, TPUR ####[facility] [place] [address] Hemogramon 12-07-2021 Erythrocyte distribution width (RBC) [Ratio] 13.7 % Normal 11.5-14.5 [facility] Comment on above: Performed By: #### P TH3, VD25H ####[address] [place] [address]#### RENL3, CRTUR, HEMOG, TPUR ####[facility] [place] [address] Hematocrit (Bld) [Volume fraction] 40.8 % Normal 40.0-52.0 [facility] Comment on above: Performed By: #### P TH3, VD25H ####[address] [place] [address]#### RENL3, CRTUR, HEMOG, TPUR ####[address] [place] [address] Hemoglobin (Bld) [Mass/Vol] 13.5 g/dL Normal 13.0-18.0 [facility] Comment on above: Performed By: #### P TH3, VD25H ####[address] [place] [address]#### RENL3, CRTUR, HEMOG, TPUR ####[facility] [place] [address] MCH (RBC) [Entitic mass] 30.4 pg Normal 26.0-34.0 [facility] Comment on above: Performed By: #### P TH3, VD25H ####[address] [place] [address]#### RENL3, CRTUR, HEMOG, TPUR ####[facility] [place] [address] MCHC 33.0 % Normal 32.0-36.0 [facility] Comment on above: Performed By: #### P TH3, VD25H ####[address] [place] [address]#### RENL3, CRTUR, HEMOG, TPUR ####[facility] [place] [address] MCV (RBC) [Entitic vol] 92.1 fL Normal 80.0-98.0 [facility] Comment on above: Performed By: #### P TH3, VD25H ####[address] [place] [address]#### RENL3, CRTUR, HEMOG, TPUR ####[facility] [place] [address] Platelet mean volume (Bld) [Entitic vol] 7.6 fL Normal 7.4-10.4 [facility] Comment on above: Performed By: #### P TH3, VD25H ####[address] [place] [address]#### RENL3, CRTUR, HEMOG, TPUR ####[address] [place] [address] Platelets (Bld) [#/Vol] 375 10*3/uL Normal 140-440 [facility] Comment on above: Performed By: #### P TH3, VD25H ####[address] [place] [address]#### RENL3, CRTUR, HEMOG, TPUR ####[facility] [place] [address] RBC (Bld) [#/Vol] 4.43 10*6/uL Normal 4.40-5.90 [facility] Comment on above: Performed By: #### P TH3, VD25H ####[address] [address]#### RENL3, CRTUR, HEMOG, TPUR ####[facility] [place] [address] WBC (Bld) [#/Vol] 8.9 10*3/uL Normal 3.6-10.7 [facility] Comment on above: Performed By: #### P TH3, VD25H ####[place] [address] [place] [address]#### RENL3, CRTUR, HEMOG, TPUR ####[facility] [place] [address] PTH, Intacton 12-07-2021 PTH, Intact 68.3 pg/mL High 8.0-54.0 [facility] Comment on above: Performed By: #### P TH3, VD25H ####[place] [address] [place] [address]#### RENL3, CRTUR, HEMOG, TPUR ####[facility] [place] [address] Protein, Ur Randomon 022 Protein, Ur Random 15 mg/dL High No Range [facility] Comment on above: Performed By: #### P TH3, VD25H ####[address] [place] [address]#### RENL3, CRTUR, HEMOG, TPUR ####[address] [place] [address] Renal Functionon 12-07-2021 Calcium [Mass/Vol] 9.6 mg/dL Normal 8.4-10.4 [facility] Comment on above: Performed By: #### P TH3, VD25H ####[address] [place] [address]#### RENL3, CRTUR, HEMOG, TPUR ####[facility] [place] [address] Phosphate [Mass/Vol] 2.8 mg/dL Normal 2.5-4.5 [facility] Comment on above: Performed By: #### P TH3, VD25H ####[place] [address] [place] [address]#### RENL3, CRTUR, HEMOG, TPUR ####[facility] [place] [address] Anion gap [Moles/Vol] 4 mmol/L Normal 3-13 [facility] Comment on above: Performed By: #### P TH3, VD25H ####[address] [facility] [place] [address]#### RENL3, CRTUR, HEMOG, TPUR ####[facility] [place] [address] CO2 [Moles/Vol] 28 mmol/L Normal 22-30 [facility] Comment on above: Performed By: #### P TH3, VD25H ####[address] [place] [address]#### RENL3, CRTUR, HEMOG, TPUR ####[facility] [place] [address] Creatinine [Mass/Vol] 1.55 mg/dL High 0.52-1.25 [facility] Comment on above: Performed By: #### P TH3, VD25H ####[address] [place] [address]#### RENL3, CRTUR, HEMOG, TPUR ####[address] [place] [address] GFR/1.73 sq M.predicted among blacks MDRD (S/P/Bld) [Vol rate/Area] 48.0 mL/min/{1.73_m2} Abnormal >60 [facility] Comment on above: Performed By: #### P TH3, VD25H ####[address] [place] [address]#### RENL3, CRTUR, HEMOG, TPUR ####[address] [place] [address] GFR/1.73 sq M.predicted among non-blacks MDRD (S/P/Bld) [Vol rate/Area] 41.5 mL/min/{1.73_m2} Abnormal >60 [facility] Comment on above: Result Comment: KDIG [...] secretion. Performed By: #### P TH3, VD25H ####[address] [place] [address]#### RENL3, CRTUR, HEMOG, TPUR ####[address] [place] [address] Glucose [Mass/Vol] 137 mg/dL High 70-100 [facility] Comment on above: Performed By: #### P TH3, VD25H ####[address] [place] [address]#### RENL3, CRTUR, HEMOG, TPUR ####[address] [place] [address] Urea nitrogen [Mass/Vol] 33 mg/dL High 7-17 [facility] Comment on above: Performed By: #### P TH3, VD25H ####[address] [place] [address]#### RENL3, CRTUR, HEMOG, TPUR ####[address] [place] [address] Albumin [Mass/Vol] 4.2 g/dL Normal 3.5-5.0 [facility] Comment on above: Performed By: #### P TH3, VD25H ####[address] [place] [address]#### RENL3, CRTUR, HEMOG, TPUR ####[address] [place] [address] Chloride [Moles/Vol] 110 mmol/L High 98-107 [facility] Comment on above: Performed By: #### P TH3, VD25H ####[place] [address] [place] [address]#### RENL3, CRTUR, HEMOG, TPUR ####[facility] [place] [address] Potassium [Moles/Vol] 4.1 mmol/L Normal 3.5-5.1 [facility] Comment on above: Performed By: #### P TH3, VD25H ####[place] [address] [place] [address]#### RENL3, CRTUR, HEMOG, TPUR ####[facility] [place] [address] Sodium [Moles/Vol] 141 mmol/L Normal 135-145 [facility] Comment on above: Performed By: #### P TH3, VD25H ####[address] [place] [address]#### RENL3, CRTUR, HEMOG, TPUR ####[address] [place] [address] Vit D 25-OH, Totalon 022 Vit D 25-OH, Total 46 ng/mL Normal 30-100 [facility] Comment on above: Result Comment: Ther apy is based on measurement of Total 25- OHD with the following classification levels: Less than 20 ng/mL: Indicative of Vit D deficiency 20-30 ng/mL: Suggests Vit D insufficiency Optimal: Greater than or equal to 30 ng/mL Test performed by [employer] Competitive Immunoassay, measuring Total Vitamin D, not individual fractions. Performed By: #### P TH3, VD25H ####[place] [address] [place] [address]#### RENL3, CRTUR, HEMOG, TPUR ####[facility] [place] [address] CBCOrdered By: Radha beckman on 05-25-2021 Hematocrit (Bld) [Volume fraction] 36.2 % Low 40.0 - 52.0 % [facility] Work Phone: 1 Hemoglobin.gastroint estinal spec 1 Ql (Stl) 12.0 g/dL Low 13.0 - 18.0 g/dL [facility] Work Phone: 1 Interpretation and review of laboratory results Abnormal [facility] Work Phone: 1 MCH (RBC) [Entitic mass] 30.6 pg 26.0 - 34.0 pg [facility] Work Phone: MCHC (RBC) [Mass/Vol] 33.0 % 32.0 - 36.0 % [facility] Work Phone: 1 MCV (RBC) [Entitic vol] 92.6 fL 80.0 - 98.0 fL [facility] Work Phone: 1 Platelet distribution width (Bld) [Ratio] 13.7 % 11.5 - 14.5 % [facility] Work Phone: Platelet mean volume (Bld) [Entitic vol] 7.4 fL 7.4 - 10.4 fL [facility] Work Phone: Platelets (Bld) [#/Vol] 319 10*3/uL 140 - 440 10*3/uL [facility] Work Phone: RBC (Bld) [#/Vol] 3.91 10*6/uL Low 4.40 - 5.9 0 10*6/uL [facility] Work Phone: WBC (Bld) [#/Vol] 9.0 10*3/uL 3.6 - 10.7 10*3/uL [facility] Work Phone: 1 Test Performed by [facility], [facility] Kumar , [place] [id number] [facility] Work Phone: [facility] Work Phone: Creatinine, Random UrineOrde red By: Radha Torres on 05-25-2021 Creatinine (U) [Mass/Vol] 203.6 mg/dL No Range [facility] Work Phone: [phone] Creatinine, Ur Randomon 08-0 Creatinine, Ur Random 203.6 mg/dL Normal No Range [facility] Comment on above: Performed By: #### C RTUR, RENL3, HEMOG, TPUR ####[address] [place] [address]#### VD25H, PTH3 ####[place] [address] [place] [facility] [place] [address] Hemogramon 05-25-2021 Erythrocyte distribution width (RBC) [Ratio] 13.7 % Normal 11.5-14.5 [facility] Comment on above: Performed By: #### C RTUR, RENL3, HEMOG, TPUR ####[address] [place] [address]#### VD25H, PTH3 ####[address] [place] [address] Hematocrit (Bld) [Volume fraction] 36.2 % Low 40.0-52.0 [facility] Comment on above: Performed By: #### C RTUR, RENL3, HEMOG, TPUR ####[address] [place] [address]#### VD25H, PTH3 ####[address] [place] [address] Hemoglobin (Bld) [Mass/Vol] 12.0 g/dL Low 13.0-18.0 [facility] Comment on above: Performed By: #### C RTUR, RENL3, HEMOG, TPUR ####[address] [place] [address]#### VD25H, PTH3 ####[address] [place] [address] MCH (RBC) [Entitic mass] 30.6 pg Normal 26.0-34.0 [facility] Comment on above: Performed By: #### C RTUR, RENL3, HEMOG, TPUR ####[address] [place] [address]#### VD25H, PTH3 ####[address] [place] [address] MCHC 33.0 % Normal 32.0-36.0 [facility] Comment on above: Performed By: #### C RTUR, RENL3, HEMOG, TPUR ####[facility] [place] [address]#### VD25H, PTH3 ####[place] [address] [place] [address] MCV (RBC) [Entitic vol] 92.6 fL Normal 80.0-98.0 [facility] Comment on above: Performed By: #### C RTUR, RENL3, HEMOG, TPUR ####[place] [address] [place] [address]#### VD25H, PTH3 ####[place] [address] [place] [address] Platelet mean volume (Bld) [Entitic vol] 7.4 fL Normal 7.4-10.4 [facility] Comment on above: Performed By: #### C RTUR, RENL3, HEMOG, TPUR ####[place] [address] [place] [address]#### VD25H, PTH3 ####[place] [address] [place] [address] Platelets (Bld) [#/Vol] 319 10*3/uL Normal 140-440 [facility] Comment on above: Performed By: #### C RTUR, RENL3, HEMOG, TPUR ####[facility] [place] [address]#### VD25H, PTH3 ####[place] [address] [place] [address] RBC (Bld) [#/Vol] 3.91 10*6/uL Low 4.40-5.90 [facility] Comment on above: Performed By: #### C RTUR, RENL3, HEMOG, TPUR ####[place] [address] [place] [address]#### VD25H, PTH3 ####[place] [address] [place] [address] WBC (Bld) [#/Vol] 9.0 10*3/uL Normal 3.6-10.7 [facility] [employer] [facility] Comment on above: Performed By: #### C RTFARHAD, RENL3, HEMOG, TPUR ####[facility] [place] [address]#### VD25H, PTH3 ####[facility] [place] [address] No Panel InformationOrdered By: Radha Torres on 05-25-2021 Test Performed by [facility], [address] , [place], [place] [address] [facility] Work Phone: [phone]) [facility] Work Phone: [phone] PTH, Intacton 05-25-2021 PTH, Intact 77.0 pg/mL High 15.0-63.0 [facility] Comment on above: Performed By: #### C JUDSON, RENL3, HEMOG, TPUR ####[facility] [place] [address]#### VD25H, PTH3 ####[facility] [employer] [place] [address] PTH, IntactOrdered By: Miles Torres on 05-25-2021 Interpretation and review of laboratory results Abnormal [facility] Work Phone: [phone] Intact 77 pg/mL High 15.0 - 63.0 pg/mL [facility] Work Phone: [phone] Test Performed by [facility], [address] [place], [place] [address] [facility] Work Phone: [phone] [facility] Work Phone: [phone] Protein, Ur Randomon 021 Protein, Ur Random 14 mg/dL High No Range [facility] [employer] Comment on above: Performed By: #### C RTUR, RENL3, HEMOG, TPUR ####[facility] [place] [address]#### VD25H, PTH3 ####[facility] [place] [address] Protein, urine, randomOrdere d By: Radha Torres on 05-25-2021 Interpretation and review of laboratory results Abnormal [facility] Work Phone: Protein (U) [Mass/Vol] 14 mg/dL High No Range [facility] Work Phone: Renal Functionon 05-25-2021 Calcium [Mass/Vol] 9.2 mg/dL Normal 8.4-10.4 [facility] Comment on above: Performed By: #### C RTUR, RENL3, HEMOG, TPUR ####[address] [place] [address]#### VD25H, PTH3 ####[place] [address] [place] [address] Anion gap [Moles/Vol] 6 mmol/L Normal 3-13 [facility] Comment on above: Performed By: #### C RTUR, RENL3, HEMOG, TPUR ####[address] [place] [address]#### VD25H, PTH3 ####[place] [address] [place] [address] CO2 [Moles/Vol] 26 mmol/L Normal 22-30 [facility] Comment on above: Performed By: #### C RTUR, RENL3, HEMOG, TPUR ####[address] [place] [address]#### VD25H, PTH3 ####[facility] [place] [address] Creatinine [Mass/Vol] 1.63 mg/dL High 0.52-1.25 [facility] Comment on above: Performed By: #### C RTUR, RENL3, HEMOG, TPUR ####[address] [place] [address]#### VD25H, PTH3 ####[facility] [place] [address] GFR/1.73 sq M.predicted among blacks MDRD (S/P/Bld) [Vol rate/Area] 45.4 mL/min/{1.73_m2} Abnormal >60 [facility] Comment on above: Performed By: #### C RTUR, RENL3, HEMOG, TPUR ####[address] [place] [address]#### VD25H, PTH3 ####[place] [address] [place] [address] GFR/1.73 sq M.predicted among non-blacks MDRD (S/P/Bld) [Vol rate/Area] 39.2 mL/min/{1.73_m2} Abnormal >60 [facility] Comment on above: Result Comment: KDIG [...] By: #### C RTUR, RENL3, HEMOG, TPUR ####[address] [place] [address]#### VD25H, PTH3 ####[place] [address] [place] [address] Glucose [Mass/Vol] 87 mg/dL Normal 70-100 [facility] Comment on above: Performed By: #### C RTUR, RENL3, HEMOG, TPUR ####[address] [place] [address]#### VD25H, PTH3 ####[place] [address] [place] [address] Phosphate [Mass/Vol] 3.5 mg/dL Normal 2.5-4.5 [facility] Comment on above: Performed By: #### C RTUR, RENL3, HEMOG, TPUR ####[facility] [place] [address]#### VD25H, PTH3 ####[facility] [place] [address] Urea nitrogen [Mass/Vol] 29 mg/dL High 7-20 [facility] Comment on above: Performed By: #### C RTUR, RENL3, HEMOG, TPUR ####[facility] [place] [address]#### VD25H, PTH3 ####[facility] [place] [address] Albumin [Mass/Vol] 3.9 g/dL Normal 3.5-5.0 [facility] Comment on above: Performed By: #### C RTUR, RENL3, HEMOG, TPUR ####[facility] [place] [address]#### VD25H, PTH3 ####[facility] [place] [address] Chloride [Moles/Vol] 107 mmol/L Normal 98-107 [facility] Comment on above: Performed By: #### C RTUR, RENL3, HEMOG, TPUR ####[facility] [place] [address]#### VD25H, PTH3 ####[facility] [place] [address] Potassium [Moles/Vol] 3.6 mmol/L Normal 3.5-5.1 [facility] Comment on above: Performed By: #### C RTUR, RENL3, HEMOG, TPUR ####[facility] [place] [address]#### VD25H, PTH3 ####[facility] [place] [address] Sodium [Moles/Vol] 138 mmol/L Normal 135-145 [facility] Comment on above: Performed By: #### C RTUR, RENL3, HEMOG, TPUR ####[facility] [place] [address]#### VD25H, PTH3 ####[facility] [place] [address] Renal Function PanelOrdered By: Radha Torres on 05-25-2021 Albumin [Mass/Vol] 3.9 g/dL 3.5 - 5.0 g/dL [facility] Work Phone: Anion gap [Moles/Vol] 6 mmol/L 3 - 13 mmol/L [facility] Work Phone: Calcium [Mass/Vol] 9.2 mg/dL 8.4 - 10. 4 mg/dL [facility] Work Phone: Chloride [Moles/Vol] 107 mmol/L 98 - 10 7 mmol/L [facility] Work Phone: CO2 [Moles/Vol] 26 mmol/L 22 - 30 mmol/L [facility] Work Phone: Creatinine [Mass/Vol] 1.63 mg/dL High 0.52 - 1.25 mg/dL [facility] Work Phone: EGFR IF NonAfrican Palestinian 39.2 mL/min Abnormal >60 [facility] Work Phone: Comment on above: KDIGO guidelines [...] (S/P/Bld) [Vol rate/Area] 45.4 mL/min/{1.73_m2} Abnormal >60 [facility] Work Phone: [phone] Glucose [Mass/Vol] 87 mg/dL 70 - 100 mg/dL [facility] Work Phone: [phone] Interpretation and review of laboratory results Abnormal [facility] Work Phone: [phone] Phosphate [Mass/Vol] 3.5 mg/dL 2.5 - 4 .5 mg/dL [facility] Work Phone: [phone] Potassium [Moles/Vol] 3.6 mmol/L 3.5 - 5.1 mmol/L [facility] Work Phone: [phone] Sodium [Moles/Vol] 138 mmol/L 135 - 145 mmol/L [facility] Work Phone: [phone] Urea nitrogen (BldV) [Mass/Vol] 29 mg/dL High 7 - 20 mg/dL [facility] Work Phone: [phone] Test Performed by [facility], [address] [place], [place] [address] Work Phone: [phone] [facility] Work Phone: [phone] Vit D 25-OH, Totalon 021 Vit D 25-OH, Total 54 ng/mL Normal 30-100 [facility] Comment on above: Result Comment: Ther apy is based on measurement of Total 25- OHD with the following classification levels: Less than 20 ng/mL: Indicative of Vit D deficiency 20-30 ng/mL: Suggests Vit D insufficiency Optimal: Greater than or equal to 30 ng/mL Test performed by [employer] Competitive Immunoassay, measuring Total Vitamin D, not individual fractions. Performed By: #### C RTUR, RENL3, HEMOG, TPUR ####[facility] [employer] [place] [address]#### VD25H, PTH3 ####[facility] [place] [facility] [place] [address] Vitamin D 25 HydroxyOrdered By: Radha Torres on 05-25-2021 Vit D, 25-Hydroxy 54 ng/mL 30 - 100 ng/mL [facility] Work Phone: Comment on above: Therapy is based on measurement of Total 25-OHD with the following classification levels: Less than 20 ng/mL: Indicative of Vit D deficiency 20-30 ng/mL: Suggests Vit D insufficiency Optimal: Greater than or equal to 30 ng/mL Test performed by [employer] Competitive Immunoassay, measuring Total Vitamin D, not individual fractions. Test Performed by [facility] [employer] [facility], [address], [place], [place] [id number] [place] [address] Work Phone: [facility] Work Phone: CULTURE BLOODon 04-29-2021 Microscopic examination of blood, culture CULTURE BLOOD --> Status: F No growth at 5 days. Normal [facility] [employer] [facility] Comment on above: Performed By: #### C /BLD ####[facility] [employer] [place] [address] CULTURE BLOOD (Two)on 2020 Microscopic examination of blood, culture CULTURE BLOOD (Two) --> Status: F No growth at 5 days. Normal [facility] [employer] Comment on above: Performed By: #### C /BLT #### [facility] [address] [place] [address] COVID-19, RapidOrdered By: Jose Alejandro Garcia on 04-23-2021 SARS-CoV-2 (COVID-19) RNA MIMI+probe Ql (Unsp spec) see below [facility] Work Phone: Comment on above: Not Detected Expected Result: Not Detected _ Isothermal nucleic acid amplification performed on the [employer] Now System by the [facility] Negative results do not preclude SARS-CoV-2 infection and should not be used as the sole basis for treatment or other patient management decisions. This assay was developed by [employer] and distributed under an Emergency Use Authorization (EUA) granted by the FDA for the qualitative detection of SARS-CoV-2 nucleic acid. Provider and patient fact sheets can be found at https://www.fda.gov/media/149761/download and https://www.fda.gov/media/143082/download. Test Performed by [facility], [address] [place], [place] [address] [facility] Work Phone: [facility] Work Phone: CR Chest PA/LATon 04-23-2021 CR Chest PA/LAT Patient Name: BRIAN BRADLEY Diagnostic Radiology ACCESSION EXAM DATE/TIME PROCEDURE ORDERING PROVIDER [id number] 04/23/2021 10:31 EDT CR Chest PA and LAT BUCKY GARCIA CPT code 00271 Reason For Exam (CR Chest PA and [...] 12:52 EDT by DO NAGY ALFRED Normal [facility] CT Abdomen Pelvis Wo Contras tOrdered By: Bucky Garcia on 04-23-2021 Patient Name: BRIAN BRADLEY Computed Tomography ACCESSION EXAM DATE/TIME PROCEDURE ORDERING PROVIDER [id number] 04/23/2021 11:[address] Abdomen/Pelvis (No RADHA, BUCKY PO, No IV) CPT code 37463 Reason For Exam (CT Abdomen/Pelvis (No PO, [...] Phone: [place], [facility] 04/23/2021 12:02 PM EDT Patient Name: BRIAN JOSHI Computed Tomography ACCESSION EXAM DATE/TIME PROCEDURE ORDERING PROVIDER [id number] 04/23/2021 11:[address] Abdomen/Pelvis (No RADHA, BUCKY PO, No IV) CPT code 28410 Reason For Exam (CT Abdomen/Pelvis (No PO, [...] HARLAN Transcribed Date and Time: 04/23/2021 12:02 [facility] Work Phone: [facility] Work Phone: CT Abdomen/Pelvis w/o Contra ston 04-23-2021 CT Abdomen/Pelvis w/o Contrast Patient Name: BRIAN JOSHI Computed Tomography ACCESSION EXAM DATE/TIME PROCEDURE ORDERING PROVIDER [id number] 04/23/2021 11:[address] Abdomen/Pelvis (No RADHABUCKY PO, No IV) CPT code 71881 Reason For Exam (CT Abdomen/Pelvis (No PO, [...] Transcribed Date and Time: 04/23/2021 12:02 Normal [facility] Comp Metabolic Panelon 04-23 ALP [Catalytic activity/Vol] 88 U/L Normal 38-126 [facility] Comment on above: Performed By: #### L ACT3, HEMDF, CMP3, LIPA4 #### [facility] [address] [place] [address] ALT [Catalytic activity/Vol] 16 U/L Normal 0-49 [facility] Comment on above: Result Comment: The ALT test is performed by an updated assay method. Please note that the reference intervals have been changed and are now sex specific. Performed By: #### L ACT3, HEMDF, CMP3, LIPA4 #### [facility] [address] [place] [address] Anion gap [Moles/Vol] 10 mmol/L Normal 3-13 [facility] Comment on above: Performed By: #### L ACT3, HEMDF, CMP3, LIPA4 #### [facility] [address] [place] [address] AST [Catalytic activity/Vol] 21 U/L Normal 15-46 [facility] Comment on above: Performed By: #### L ACT3, HEMDF, CMP3, LIPA4 #### [facility] [address] [place] [address] Bilirubin [Mass/Vol] 0.9 mg/dL Normal 0.2-1.3 [facility] Comment on above: Performed By: #### L ACT3, HEMDF, CMP3, LIPA4 #### [facility] [address] [place] [address] Calcium [Mass/Vol] 8.6 mg/dL Normal 8.4-10.4 [facility] Comment on above: Performed By: #### L ACT3, HEMDF, CMP3, LIPA4 #### [facility] [address] [place] [address] CO2 [Moles/Vol] 22 mmol/L Normal 22-30 [facility] Comment on above: Performed By: #### L ACT3, HEMDF, CMP3, LIPA4 #### [facility] [address] [place] [address] Glucose [Mass/Vol] 134 mg/dL High 70-100 [facility] Comment on above: Performed By: #### L ACT3, HEMDF, CMP3, LIPA4 #### [facility] [address] [place] [address] Protein [Mass/Vol] 6.7 g/dL Normal 6.3-8.2 [facility] Comment on above: Performed By: #### L ACT3, HEMDF, CMP3, LIPA4 #### [facility] [address] [place] [address] Urea nitrogen [Mass/Vol] 34 mg/dL High 7-20 [facility] Comment on above: Performed By: #### L ACT3, HEMDF, CMP3, LIPA4 #### [facility] [address] [place] [address] Creatinine [Mass/Vol] 2.24 mg/dL High 0.52-1.25 [facility] Comment on above: Performed By: #### L ACT3, HEMDF, CMP3, LIPA4 #### [facility] [address] [place] [address] GFR/1.73 sq M.predicted among blacks MDRD (S/P/Bld) [Vol rate/Area] 30.9 mL/min/{1.73_m2} Abnormal >60 [facility] Comment on above: Performed By: #### L ACT3, HEMDF, CMP3, LIPA4 #### [facility] [address] [place] [address] GFR/1.73 sq M.predicted among non-blacks MDRD (S/P/Bld) [Vol rate/Area] 26.7 mL/min/{1.73_m2} Abnormal >60 [facility] Comment on above: Result Comment: KDIG [...] #### L ACT3, HEMDF, CMP3, LIPA4 #### [facility] [address] [place] [address] Albumin [Mass/Vol] 3.7 g/dL Normal 3.5-5.0 [facility] Comment on above: Performed By: #### L ACT3, HEMDF, CMP3, LIPA4 #### [facility] [address] [place] [address] Chloride [Moles/Vol] 106 mmol/L Normal 98-107 [facility] Comment on above: Performed By: #### L ACT3, HEMDF, CMP3, LIPA4 #### [facility] [address] [place] [address] Potassium [Moles/Vol] 3.1 mmol/L Low 3.5-5.1 [facility] Comment on above: Performed By: #### L ACT3, HEMDF, CMP3, LIPA4 #### [facility] [address] [place] [address] Sodium [Moles/Vol] 138 mmol/L Normal 135-145 [facility] Comment on above: Performed By: #### L ACT3, HEMDF, CMP3, LIPA4 #### [facility] [address] [place] [address] Complete Urinalysison 2020 Bacteria Moderate (6-50) Abnormal Negative [facility] Comment on above: Result Comment: . Performed By: #### C UA2 ####[facility] [place] [address] RBC, Urine 0 - 2 Normal 0-2 [facility] Comment on above: Result Comment: . Performed By: #### C UA2 ####[facility] [place] [address] Squamous Epithelial 0 - 2 Normal 3-5 [facility] Comment on above: Result Comment: . Performed By: #### C UA2 ####[facility] [place] [address] VOLUME, URINE 8-12 ml Normal [facility] Comment on above: Result Comment: . Performed By: #### C UA2 ####[place] [address] [place] [address] WBC, Urine 3 - 5 Normal 0-5 [facility] Comment on above: Result Comment: . Performed By: #### C UA2 ####[place] [address] [place] [address] Bilirubin,Urine Negative Normal Negative [facility] Comment on above: Result Comment: . Performed By: #### C UA2 ####[place] [address] [place] [address] Glucose Ql (U) Normal Normal Normal (<70) [facility] Comment on above: Result Comment: . Performed By: #### C UA2 ####[place] [address] [place] [address] Ketone,Urine Negative Normal Negative [facility] Comment on above: Result Comment: . Performed By: #### C UA2 ####[place] [address] [place] [address] Leukocytes,Urine 25 Panda/uL Abnormal Negative [facility] Comment on above: Result Comment: . Performed By: #### C UA2 ####[place] [address] [place] [address] Nitrites,Urine Negative Normal Negative [facility] Comment on above: Result Comment: . Performed By: #### C UA2 ####[place] [address] [place] [address] pH,Urine 6.0 Normal 5.0-8.0 [facility] Comment on above: Result Comment: . Performed By: #### C UA2 ####[place] [address] [place] [address] Specific [place],Urine 1.021 Normal 1.005 - 1.030 [facility] Comment on above: Result Comment: . Performed By: #### C UA2 ####[place] [address] [place] [address] Complete UrinalysisOrdered B y: Bucky Garcia on 04-23-2021 Appearance (U) Clear Normal Clear [facility] Work Phone: Comment on above: . Result Comment: . Performed By: #### C UA2 ####[place] [address] [place] [address] Color (U) LIGHT YELLOW Normal Lt. Yellow [facility] Work Phone: Comment on above: . Result Comment: . Performed By: #### C UA2 ####[place] [address] [place] [address] Occult Blood,Urine Negative Normal Negative [facility] Work Phone: Comment on above: . Result Comment: . Performed By: #### C UA2 ####[place] [address] [place] [address] Protein (U) [Mass/Vol] 50 mg/dL Abnormal Negative [facility] Work Phone: Comment on above: . Result Comment: . Performed By: #### C UA2 ####[place] [address] [place] [address] Urobilinogen, Urine Normal Normal Normal (0-1) [facility] Work Phone: Comment on above: . Result Comment: . Performed By: #### C UA2 ####[place] [address] [place] [address] Comprehensive Metabolic Pane lOrdered By: Bucky Garcia on 04-23-2021 Albumin [Mass/Vol] 3.7 g/dL 3.5 - 5.0 g/dL [facility] Work Phone: [phone] ALP (Bld) [Catalytic activity/Vol] 88 U/L 38 - 126 U/L [facility] Work Phone: [phone] ALT [Catalytic activity/Vol] 16 U/L 0 - 49 U/L [facility] Work Phone: [phone] Comment on above: The ALT test is perf ormed by an updated assay method. Please note that the reference intervals have been changed and are now sex specific. Anion gap [Moles/Vol] 10 mmol/L 3 - 13 mmol/L [facility] Work Phone: [phone] AST [Catalytic activity/Vol] 21 U/L 15 - 46 U/L [facility] Work Phone: [phone] Bilirubin [Mass/Vol] 0.9 mg/dL 0.2 - 1 .3 mg/dL [facility] Work Phone: [phone] Calcium [Mass/Vol] 8.6 mg/dL 8.4 - 10. 4 mg/dL [facility] Work Phone: [phone] Chloride [Moles/Vol] 106 mmol/L 98 - 10 7 mmol/L [facility] Work Phone: CO2 [Moles/Vol] 22 mmol/L 22 - 30 mmol/L [facility] Work Phone: [phone] Creatinine [Mass/Vol] 2.24 mg/dL High 0.52 - 1.25 mg/dL [facility] Work Phone: [phone] EGFR IF NonAfrican Palestinian 26.7 mL/min Abnormal >60 [facility] Work Phone: Comment on above: KDIGO guidelines [...] fraction] 6.7 g/dL 6.3 - 8.2 g/dL [employer] Work Phone: 22 GFR/1.73 sq M.predicted among blacks MDRD (S/P/Bld) [Vol rate/Area] 30.9 mL/min/{1.73_m2} Abnormal >60 [facility] Work Phone: Glucose [Mass/Vol] 134 mg/dL High 70 - 100 mg/dL [facility] Work Phone: Interpretation and review of laboratory results Abnormal [facility] Work Phone: Potassium [Moles/Vol] 3.1 mmol/L Low 3.5 - 5.1 mmol/L [facility] Work Phone: Sodium [Moles/Vol] 138 mmol/L 135 - 145 mmol/L [facility] Work Phone: Urea nitrogen (BldV) [Mass/Vol] 34 mg/dL High 7 - 20 mg/dL [facility] Work Phone: [phone] Hemogram (CBC) w/Auto DiffOr dered By: Bucky Garcia on 04-23-2021 Absolute Baso # 0.0 10*3/uL 0.0 - 0.2 10*3/uL [facility] Work Phone: Absolute Neut # 14.0 10*3/uL High 1.8 - 7.0 10*3/uL [facility] Work Phone: [phone] Basophils/100 WBC (Bld) 0.3 % 0.0 - 2.0 % [facility] Work Phone: Eosinophils (Bld) [#/Vol] 0.0 10*3/uL 0.0 - 0.5 10*3/uL [facility] Work Phone: [phone] Eosinophils/100 WBC (Bld) 0.0 % Low 1.0 - 6.0 % [facility] Work Phone: 22 Granulocytes/100 WBC (Bld) 84.8 % High 40.0 - 80.0 % [facility] Work Phone: 1 Hematocrit (Bld) [Volume fraction] 38.9 % Low 40.0 - 52.0 % [employer] Work Phone: Hemoglobin.gastroint estinal spec 1 Ql (Stl) 13.0 g/dL 13.0 - 18.0 g/dL [employer] Work Phone: [phone] Interpretation and review of laboratory results Abnormal [facility] Work Phone: Lymphocytes (Bld) [#/Vol] 1.1 10*3/uL 1.0 - 4.3 10*3/uL [employer] Work Phone: 1 Lymphocytes/100 WBC (Bld) 6.6 % Low 20.0 - 40.0 % [employer] Phone: 1 MCH (RBC) [Entitic mass] 30.7 pg 26.0 - 34.0 pg [employer] Work Phone: MCHC (RBC) [Mass/Vol] 33.5 % 32.0 - 36.0 % [employer] Work Phone: MCV (RBC) [Entitic vol] 91.4 fL 80.0 - 98.0 fL [employer] Work Phone: Monocytes (Bld) [#/Vol] 1.4 10*3/uL High 0.0 - 0.8 10*3/uL [employer] Work Phone: Monocytes/100 WBC (Bld) 8.3 % 2.0 - 10.0 % [employer] Work Phone: Platelet distribution width (Bld) [Ratio] 13.3 % 11.5 - 14.5 % [employer] Phone: Platelet mean volume (Bld) [Entitic vol] 8.4 fL 7.4 - 10.4 fL [employer] Work Phone: Platelets (Bld) [#/Vol] 339 10*3/uL 140 - 440 10*3/uL [facility] Work Phone: RBC (Bld) [#/Vol] 4.25 10*6/uL Low 4.40 - 5.9 0 10*6/uL [facility] Work Phone: WBC (Bld) [#/Vol] 16.5 10*3/uL High 3.6 - 10.7 10*3/uL [facility] Work Phone: [phone] Test Performed by [facility], [address] , [place], [place] [address] Work Phone: [phone] [facility] Work Phone: [phone] Hemogram w/ Autodiffon 04-23 Abs Baso Cnt 0.0 10*3/uL Normal 0.0-0.2 [facility] Comment on above: Performed By: #### L ACT3, HEMDF, CMP3, LIPA4 #### [facility] [address] [place] [address] Abs Neutrophile Cnt 14.0 10*3/uL High 1.8-7.0 [facility] Comment on above: Performed By: #### L ACT3, HEMDF, CMP3, LIPA4 #### [facility] [address] [place] [address] Basophils/100 WBC (Bld) 0.3 % Normal 0.0-2.0 [facility] Comment on above: Performed By: #### L ACT3, HEMDF, CMP3, LIPA4 #### [facility] [address] [place] [address] Eosinophils (Bld) [#/Vol] 0.0 10*3/uL Normal 0.0-0.5 [facility] Comment on above: Performed By: #### L ACT3, HEMDF, CMP3, LIPA4 #### [facility] [address] [place] [address] Eosinophils/100 WBC (Bld) 0.0 % Low 1.0-6.0 [facility] Comment on above: Performed By: #### L ACT3, HEMDF, CMP3, LIPA4 #### [facility] [address] [place] [address] Erythrocyte distribution width (RBC) [Ratio] 13.3 % Normal 11.5-14.5 [facility] Comment on above: Performed By: #### L ACT3, HEMDF, CMP3, LIPA4 #### [facility] [address] [place] [address] Granulocytes/100 WBC (Bld) 84.8 % High 40.0-80.0 [facility] Comment on above: Performed By: #### L ACT3, HEMDF, CMP3, LIPA4 #### [facility] [address] [place] [address] Hematocrit (Bld) [Volume fraction] 38.9 % Low 40.0-52.0 [facility] Comment on above: Performed By: #### L ACT3, HEMDF, CMP3, LIPA4 #### [facility] [address] [place] [address] Hemoglobin (Bld) [Mass/Vol] 13.0 g/dL Normal 13.0-18.0 [facility] Comment on above: Performed By: #### L ACT3, HEMDF, CMP3, LIPA4 #### [facility] [address] [place] [address] Lymphocytes (Bld) [#/Vol] 1.1 10*3/uL Normal 1.0-4.3 [facility] Comment on above: Performed By: #### L ACT3, HEMDF, CMP3, LIPA4 #### [facility] [address] [place] [address] Lymphocytes/100 WBC (Bld) 6.6 % Low 20.0-40.0 [facility] Comment on above: Performed By: #### L ACT3, HEMDF, CMP3, LIPA4 #### [facility] [address] [place] [address] MCH (RBC) [Entitic mass] 30.7 pg Normal 26.0-34.0 [facility] Comment on above: Performed By: #### L ACT3, HEMDF, CMP3, LIPA4 #### [facility] [address] [place] [address] MCHC 33.5 % Normal 32.0-36.0 [facility] Comment on above: Performed By: #### L ACT3, HEMDF, CMP3, LIPA4 #### [facility] [address] [place] [address] MCV (RBC) [Entitic vol] 91.4 fL Normal 80.0-98.0 [facility] Comment on above: Performed By: #### L ACT3, HEMDF, CMP3, LIPA4 #### [facility] [address] [place] [address] Monocytes (Bld) [#/Vol] 1.4 10*3/uL High 0.0-0.8 [facility] Comment on above: Performed By: #### L ACT3, HEMDF, CMP3, LIPA4 #### [facility] [address] [place] [address] Monocytes/100 WBC (Bld) 8.3 % Normal 2.0-10.0 [facility] Comment on above: Performed By: #### L ACT3, HEMDF, CMP3, LIPA4 #### [facility] [address] [place] [address] Platelet mean volume (Bld) [Entitic vol] 8.4 fL Normal 7.4-10.4 [facility] Comment on above: Performed By: #### L ACT3, HEMDF, CMP3, LIPA4 #### [facility] [address] [place] [address] Platelets (Bld) [#/Vol] 339 10*3/uL Normal 140-440 [facility] Comment on above: Performed By: #### L ACT3, HEMDF, CMP3, LIPA4 #### [facility] [address] [place] [address] RBC (Bld) [#/Vol] 4.25 10*6/uL Low 4.40-5.90 [facility] Comment on above: Performed By: #### L ACT3, HEMDF, CMP3, LIPA4 #### [facility] [address] [place] [address] WBC (Bld) [#/Vol] 16.5 10*3/uL High 3.6-10.7 [facility] Comment on above: Performed By: #### L ACT3, HEMDF, CMP3, LIPA4 #### [facility] [address] [place] [address] Lactic Acidon 04-23-2021 Lactate [Moles/Vol] 1.4 mmol/L Normal 0.7-2.0 [facility] Comment on above: Performed By: #### L ACT3, HEMDF, CMP3, LIPA4 #### [facility] [address] [place] [address] Lactic Acid, PlasmaOrdered B y: Bucky Garcia on 04-23-2021 Lactate [Moles/Vol] 1.4 mmol/L 0.7 - 2. 0 mmol/L [facility] Work Phone: [phone] Test Performed by [facility], [facility] [address] , [address] Work Phone: [phone] [facility] Work Phone: [phone] Lipaseon 04-23-2021 Lipase [Catalytic activity/Vol] 161 U/L Normal 23-300 [facility] Comment on above: Performed By: #### L ACT3, HEMDF, CMP3, LIPA4 #### [facility] [address] [place] [address] LipaseOrdered By: Bucky mercedes on 04-23-2021 Lipase [Catalytic activity/Vol] 161 U/L 23 - 300 U/L [facility] Work Phone: No Panel InformationOrdered By: Bucky Garcia on 04-23-2021 Test Performed by [facility], [address] , [address] Work Phone: [phone] [facility] Work Phone: SARS-CoV-2 (LAB DEPT)on SARS-CoV-2 (COVID-19) RNA MIMI+probe Ql (Unsp spec) see below Normal [facility] Comment on above: Result Comment: Not Detected Expected Result: Not Detected _ Isothermal nucleic acid amplification performed on the [employer] ID Now System by the [facility] Negative results do not preclude SARS-CoV-2 infection and should not be used as the sole basis for treatment or other patient management decisions. This assay was developed by [employer] and distributed under an Emergency Use Authorization (EUA) granted by the FDA for the qualitative detection of SARS-CoV-2 nucleic acid. Provider and patient fact sheets can be found at https://www.fda.gov/media/228181/download and https://www.fda.gov/media/581457/download. Performed By: #### C VCCL #### [facility] [address] [place] [address] UrinalysisOrdered By: Charles Garcia on 04-23-2021 Bacteria, UA Moderate (6-50) Abnormal Negative /[HPF] [facility] Work Phone: 1 Comment on above: . Bilirubin Urine Negative Negative mg/dL [facility] Work Phone: 1 Comment on above: . Glucose, Ur Normal Normal (<70) mg/dL [facility] Work Phone: 1 Comment on above: . Interpretation and review of laboratory results Abnormal [facility] Work Phone: 1 Ketones Ql (U) Negative Negative mg/dL [facility] Work Phone: 1 Comment on above: . LEUKOCYTES, UA 25 Abnormal Negative Panda/uL [facility] Work Phone: 1 Comment on above: . Nitrite, Urine Negative Negative NA [facility] Work Phone: 1 Comment on above: . pH (U) 6.0 [pH] [employer] Work Phone: 1 Comment on above: . RBC, UA 0-2 0 - 2 /[HPF] [employer] Work Phone: 1 Comment on above: . Specific [place], Urine 1.021 [employer] Work Phone: 1 Comment on above: . Squam Epithel, UA 0-2 3 - 5 /[HPF] [employer] Work Phone: 1 Comment on above: . Volume 8-12 ml [employer] Work Phone: 1 Comment on above: . WBC, UA 3-5 0 - 5 /[HPF] [facility] Work Phone: Comment on above: . Test Performed by [facility], [address] , [place], [place] [address] [facility] Work Phone: [facility] Work Phone: XR CHEST (2 VW)Ordered By: Jose Alejandro Garcia on 04-23-2021 Patient Name: BRIAN BRADLEY Diagnostic Radiology ACCESSION EXAM DATE/TIME PROCEDURE ORDERING PROVIDER [id number] 04/23/2021 10:31 EDT CR Chest PA & LAT BUCKY GARCIA CPT code 58861 Reason For Exam (CR Chest PA & [...] Phone: Aquilino, Enedeliaa Incoming Radiology Results From [facility] - 04/23/2021 12:53 PM EDT [facility]: [id number] Radiology ACCESSION EXAM DATE/TIME PROCEDURE ORDERING PROVIDER [id number] 04/23/2021 10:31 EDT CR Chest PA & LAT BUCKY GARCIA CPT code 78975 Reason For Exam (CR Chest PA & [...] by DO NAGY ALFRED [facility] Work Phone: [facility] Work Phone: Basic Metabolic Panelon 02-0 Anion gap [Moles/Vol] 6 mmol/L [place], [place] Calcium [Mass/Vol] 9.3 mg/dL 8.4 - 10. 4 mg/dL [place] Chloride [Moles/Vol] 107 mmol/L 98 - 10 7 mmol/L [place] CO2 [Moles/Vol] 29 mmol/L 22 - 30 mmol/L [place] Creatinine [Mass/Vol] 1.48 mg/dL High 0.52 - 1.25 mg/dL [place] EGFR IF NonAfrican Palestinian 44.2 mL/min Abnormal >60 [place] Comment on above: KDIGO guidelines pro [...] (S/P/Bld) [Vol rate/Area] 51.2 mL/min/{1.73_m2} Abnormal >60 [place] Glucose [Mass/Vol] 118 mg/dL High 70 - 100 mg/dL [place] Interpretation and review of laboratory results Abnormal [place] Potassium [Moles/Vol] 4.1 mmol/L 3.5 - 5.1 mmol/L [place] Sodium [Moles/Vol] 141 mmol/L 135 - 145 mmol/L [place] Urea nitrogen [Mass/Vol] 27 mg/dL High 7 - 20 mg/dL [place] Test Performed by [facility], [facility] [address] , [address] Creatinine, Random Urineon 0 11-24-2020 Creatinine (U) [Mass/Vol] 126.7 mg/dL No Range [place] Otheron 11-24-2020 Test Performed by [facility], [address] , [address] Protein, urine, randomon Interpretation and review of laboratory results Abnormal [place] Protein (U) [Mass/Vol] 33 mg/dL High No Range [place] Troponinon 09-01-2020 Troponin I.cardiac [Mass/Vol] ng/mL 0 - 0.034 ng/mL [place] Comment on above: . Test Performed by [facility], [address] , [address] CBCon 05-20-2020 Erythrocyte distribution width (RBC) [Ratio] 13.6 % 11.5 - 14.5 % [place] Hematocrit (Bld) [Volume fraction] 37.8 % Low 40 - 52 % [place] Hemoglobin (Bld) [Mass/Vol] 12.7 g/dL Low 13 - 18 g/dL [place] Interpretation and review of laboratory results Abnormal [place] MCH (RBC) [Entitic mass] 31.6 pg 26 - 34 pg [place] MCHC (RBC) [Mass/Vol] 33.5 % 32 - 36 % [place] MCV (RBC) [Entitic vol] 94.2 fL 80 - 98 fL [place] Platelet mean volume (Bld) [Entitic vol] 8.2 fL 7.4 - 10.4 fL [place] Platelets (Bld) [#/Vol] 321 10*3/uL 140 - 440 10*3/uL [place] RBC (Bld) [#/Vol] 4.02 10*6/uL Low 4.4 - 5.9 10*6/uL [place] WBC (Bld) [#/Vol] 7.3 10*3/uL 3.6 - 10.7 10*3/uL [facility] [place] Test Performed by [facility], [address] , [place], [place] [id number] [place] [address] [place] Creatinine, Random Urineon 0 05-20-2020 Creatinine (U) [Mass/Vol] 230.1 mg/dL No Range [facility] [place] Otheron 05-20-2020 Test Performed by [facility], [address] , [place], [place] [address] [facility] PTH, Intacton 05-20-2020 Pth Intact 62 pg/mL 15 - 63 pg/mL [facility] [place] Test Performed by [facility], [address], [place], [place] [address] [facility] Protein, urine, randomon Protein (U) [Mass/Vol] 10 mg/dL No Range [facility] [place] Renal Function Panelon 05-20 Albumin [Mass/Vol] 3.4 g/dL Low 3.5 - 5 g/dL [facility] Anion gap [Moles/Vol] 7 mmol/L [facility] Calcium [Mass/Vol] 9.0 mg/dL 8.4 - 10. 4 mg/dL [facility] Chloride [Moles/Vol] 107 mmol/L 98 - 10 7 mmol/L [facility] CO2 [Moles/Vol] 25 mmol/L 22 - 30 mmol/L [facility] Creatinine [Mass/Vol] 1.46 mg/dL High 0.52 - 1.25 mg/dL [facility] EGFR IF NonAfrican Palestinian 45.0 mL/min Abnormal >60 [facility] Comment on above: KDIGO guidelines [...] (S/P/Bld) [Vol rate/Area] 52.2 mL/min/{1.73_m2} Abnormal >[address] [facility] Glucose [Mass/Vol] 204 mg/dL High 70 - 100 mg/dL [facility] [employer] [place], [place] Interpretation and review of laboratory results Abnormal [facility] [employer] [facility]IESSA[facility], [place] [employer] Phosphate [Mass/Vol] 3.2 mg/dL 2.5 - 4 .5 mg/dL [facility] [employer] [place] Potassium [Moles/Vol] 4.1 mmol/L 3.5 - 5.1 mmol/L [facility] [employer], [place] Sodium [Moles/Vol] 139 mmol/L 135 - 145 mmol/L [facility] [employer], [place] Urea nitrogen [Mass/Vol] 32 mg/dL High 7 - 20 mg/dL [facility] [employer] [place] Test Performed by [employer] [facility], [address] , [place] [id number] [place], [place] [address] [place] Vitamin D 25 Hydroxyon 05-20 Vit D, 25-Hydroxy 59 ng/mL 30 - 100 ng/mL [place] Comment on above: Therapy is based on measurement of Total 25-OHD with the following classification levels: Less than 20 ng/mL: Indicative of Vit D deficiency 20-30 ng/mL: Suggests Vit D insufficiency Optimal: Greater than or equal to 30 ng/mL Test performed by [employer], measuring Total Vitamin D, not individual fractions. Test Performed by [facility], [address], [place], [place] [id number] [place] [address] [employer] [place], [place] Creatinine, Random UrineOrde red By: Radha Torres on 11-20-2019 Creatinine (U) [Mass/Vol] 259.5 mg/dL No Range [facility] Work Phone: No Panel InformationOrdered By: Radha Torres on 11-20-2019 Test Performed by [facility], [address], [place], [place] [address] [facility] Work Phone: Test Performed by [facility], [address] , [place], [place] [address] [facility] Work Phone: PTH, IntactOrdered By: Miles [...] mg/dL [facility] Work Phone: EGFR IF NonAfrican Palestinian 41.6 mL/min >60 [facility] Work Phone: Comment on above: Source- MDRD equatio n with creatinine calibration to IDMS(NKDEP) eGFR not recommended for drug dose adjustment GFR/1.73 sq M.predicted among blacks MDRD (S/P/Bld) [Vol rate/Area] 50.5 mL/min/{1.73_m2} >60 [facility] Work Phone: Glucose [Mass/Vol] 51 mg/dL Low 70 - 100 mg/dL [facility] Work Phone: [phone] Interpretation and review of laboratory results Abnormal [facility] Work Phone: [phone] Phosphate [Mass/Vol] 3.7 mg/dL 2.5 - 4 .5 mg/dL [facility] Work Phone: [phone] Potassium [Moles/Vol] 3.6 mmol/L 3.5 - 5.1 mmol/L [facility] Work Phone: [phone] Sodium [Moles/Vol] 142 mmol/L 135 - 145 mmol/L [facility] Work Phone: [phone] Urea nitrogen [Mass/Vol] 28 mg/dL High 7 - 20 mg/dL [facility] Work Phone: [phone] Test Performed by [facility], [address] [place] [address] [address] Work Phone: [phone] Vitamin D 25 HydroxyOrdered By: Radha Torres on 11-20-2019 Vit D, 25-Hydroxy 53 ng/mL 30 - 100 ng/mL [facility] Work Phone: Comment on above: Therapy is based on measurement of Total 25-OHD with the following classification levels: Less than 20 ng/mL: Indicative of Vit D deficiency 20-30 ng/mL: Suggests Vit D insufficiency Optimal: Greater than or equal to 30 ng/mL Test performed by [employer], measuring Total Vitamin D, not individual fractions. Clinical Summary: HMSPatient IDon 11-23-2018 SOP [facility] Work Phone: Clinical Summary: Scanned Hi story Summaryon 11-23-2018 brother(s) of patient alive or Unknown [facility] Work Phone: Cholesterol mass conc Kidney diseaseDiabetes - insulin dependentHigh blood pressurePacemakerHeart attackHigh cholesterol [facility] Work Phone: data entered by patient, alcohol (ethanol or ETOH) use No [facility] Work Phone: data entered by patient, drug (of abuse) use No [facility] Work Phone: data entered by patient, Employer Name Retired [facility] Work Phone: data entered by patient, exercise history No [facility] Work Phone: data entered by patient, father's medical history Heart disease [facility] Work Phone: Data entered by patient, history of past surgeries Pacemaker insertionHeart stent [facility] Work Phone: data entered by patient, mother's medical history Cancer [facility] Work Phone: data entered by patient, social history, marital status [facility] Work Phone: father of patient is alive or [facility] Work Phone: mother of patient is alive or [facility] Work Phone: sister of patient(s) alive or Unknown [facility] Work Phone: Clinical Summary: Rafa BLANDON S Summaryon 11-23-2018 endocrine ROS Complains [facility] Work Phone: endocrine system, review of, comments Diabetes [facility] Work Phone: genitourinary review of systems, E&M Denies [facility] Work Phone: Lymphocytes #/vol (Bld) Denies [facility] Work Phone: ROS cardiovascular E&M Denies [facility] Work Phone: ROS ENT comment Impaired Hearing Cry [facility] Work Phone: ROS ENT E&M Complains [facility] Work Phone: ROS gastrointestinal E&M Denies [facility] Work Phone: ROS general E&M Denies [facility] Work Phone: ROS musculoskeletal E&M Denies [facility] Work Phone: ROS neurological E&M Denies [facility] Work Phone: ROS psychiatric E&M Denies [facility] Work Phone: ROS Pulmonary comment Shortness Of Breath [facility] Work Phone: ROS pulmonary E&M Complains [facility] Work Phone: ROS skin E&M Denies [facility] Work Phone: Office Visit: New - 1st visi t with practice, Rm:on 11-23-2018 NEGATED: Highlighted rowProtein mass conc Done [facility] Work Phone: NEGATED: Highlighted rowTobacco smoking status NHIS Tobacco smoking status NHIS [facility] Work Phone: NEGATED: Highlighted rowxray history of the left thumb on 11/16/2018 at [facility] Work Phone: Basic Metabolic Panelon 10-25 Anion gap molar conc 9 Normal [facility] [employer] [facility] Comment on above: Performed By: #### H EMOG, PT, BMP3 #### [facility] [employer] [address] [place] [address] Calcium mass conc 9.1 mg/dL Normal 8.4-10.4 [facility] Comment on above: Performed By: #### H EMOG, PT, BMP3 #### [facility] [address] [place], [place] CO2 molar conc 27 mmol/L Normal 22-30 [facility] Comment on above: Performed By: #### H ELANA SINGLETON BMP3 #### [facility] [address] [place], [place] Glucose mass conc 90 mg/dL Normal 70-100 [facility] Comment on above: Performed By: #### H ELANA SINGLETON BMP3 #### [place] [address] [address] [place], [place] Urea nitrogen mass conc 35 mg/dL High 7-20 [facility] Comment on above: Performed By: #### H ELANA SINGLETON BMP3 #### [place] [address] [address] [place], [place] Creatinine mass conc 1.72 mg/dL High 0.52-1.25 [facility] Comment on above: Performed By: #### H ELANA SINGLETON BMP3 #### [place] [address] [address] [place], [place] GFR/1.73 sq M predicted among blacks MDRD vol rate/area (S/P/Bld) 46.9 mL/min/{1.73_m2} Normal >60 [facility] Comment on above: Performed By: #### H ELANA SINGLETON, BMP3 #### [place] [address] [address] [place], [place] GFR/1.73 sq M predicted among non-blacks MDRD vol rate/area (S/P/Bld) 38.7 mL/min/{1.73_m2} Normal >60 [facility] Comment on above: Result Comment: Sour ce- MDRD equation with creatinine calibration to IDMS(NKDEP) eGFR not recommended for drug dose adjustment Performed By: #### H ELANA SINGLETON, BMP3 #### [place] [address] [address] [place], [place] Chloride molar conc 107 mmol/L Normal 98-107 [facility] Comment on above: Performed By: #### H LEANA SINGLETON, BMP3 #### [place] [address] [address] [place], [place] Potassium molar conc 3.5 mmol/L Normal 3.5-5.1 [facility] Comment on above: Performed By: #### H ELANA SINGLETON, BMP3 #### [facility] [address] [place] [address] Sodium molar conc 143 mmol/L Normal 135-145 [facility] Comment on above: Performed By: #### H ELANA SINGLETON, BMP3 #### [facility] [address] [place], [place] CR Hand Complete 3+ Views Le fton 11-16-2018 CR Hand Complete 3+ Views Left Patient Name: BRIAN JOSHI Diagnostic Radiology Exam Date/Time 11/16/2018 17:01:59 EST Exam CR Hand Complete 3+ Views Left Ordering Physician PITA HAMILTON, VIDHYA Michelle Accession Number [id number] CPT4 Codes 19032 () Reason For Exam amputation left thumb [...] Transcribed Date and Time: 11/16/2018 5:18 Normal [facility] ED Provider Noteon 9 Protein mass conc Emergency Department Encounter [facility] EMERGENCY DEPT Patient: Brian Joshi : 1940 Date of Evaluation: 11/16/2018 ED Supervising Physician: ARJUN CALLEJAS MD THIS WILL SERVE MY FREDDY SUPERVISORY NOTE: I independently examined and evaluated Brian Joshi. HISTORY: In brief, Brian Joshi is a 78 y.o. male that presents to the emergency department amputation of left thumb. It occurred on a table saw earlier today he went to [facility] they apparently spoke with hand and [...] are mis-transcribed.) ARJUN CALLEJAS MD Acute Care [facility] Arjun Callejas MD 11/16/18 1628 [facility] Patient: Brian Joshi : 1940 Date of Evaluation: 11/16/2018 ED FREDDY Provider: Vidhya Hamilton PA-C EDcare was supervised by Dr. Callejas who independently examined and evaluated the patient. Please see their attestation note for further details. Chief Complaint Chief Complaint Patient presents with ? Other LAC LEFT THUMB;SENT FROM [facility] Brian Joshi is a 78 y.o. male whopresents to the emergency department For evaluation of a LEFT thumb amputation after initially being evaluated in sent from [facility]. He was using a table saw approximately noon today, when his LEFT hand slipped beneath the blade. He believes that he cut it off at the interphalangeal joint. He was told to come directly to [facility] emergency department. Review of paperwork and blue slip with patient indicates that he was treated with Ancef 1 g, morphine, Zofran. Patient is unaware when his last tetanus vaccine was, and did not receive one in [place] emergency [place]. Arrives with partially amputated thumb, on ice [...] otherwise acutely negative except as in the [place]. Past History Past Medical History: Diagnosis Date ? BPH (benign prostatic hypertrophy) ? CAD (coronary artery disease) 2009 LAD stent (Black) - neg stress test 02/05 and 02/08 ? Chronic renal failure, stage 3 (moderate) (HCC) 2013 Nephrology, [facility] [place] ? Eczema ? ED (erectile dysfunction) ? 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 [...] 2038 VIDHYA HAMILTON 11/16/18 1730 11/16/18 1721 Ltwviqo-Kjpmtx-Vsaol Pertussis (BOOSTRIX) injection 0.5 mL ONCE Last [...] [employer] Vidhya Hamilton PA-C 11/23/18 1658 Normal [facility] Glucose,Bedsideon 11-16-2018 Glucose mass conc 108 mg/dL High 70-100 [facility] Comment on above: Result Comment: Test performed by glucose meter. Results may be 10%-15% lower than serum/plasma values. (CLIA ID [id number]) Performed By: #### B GLU #### [address] [address] [place] [address] Glucose mass conc 63 mg/dL Low 70-100 [facility] Comment on above: Result Comment: Test performed by glucose meter. Results may be 10%-15% lower than serum/plasma values. (CLIA ID [id number]) Performed By: #### B GLU #### [address] [address] Hemogramon 11-16-2018 Erythrocyte distribution width Ratio (RBC) 13.8 % Normal 11.5-14.5 [facility] Comment on above: Performed By: #### H EMOG, PT, BMP3 #### [address] [address] [place] [address] Hematocrit Volume Fraction (Bld) 41.2 % Normal 40.0-52.0 [facility] Comment on above: Performed By: #### H MANI, PT, BMP3 #### [address] [address] Hemoglobin mass conc (Bld) 13.4 g/dL Normal 13.0-18.0 [facility] Comment on above: Performed By: #### H MANI PT, BMP3 #### [address] [address] [place], [place] MCH Entitic mass (RBC) 29.9 pg Normal 26.0-34.0 [facility] Comment on above: Performed By: #### H EMOG, PT, BMP3 #### [address] [address] [place], [place] MCHC mass conc (RBC) 32.5 % Normal 32.0-36.0 [facility] Comment on above: Performed By: #### H EMOG, PT, BMP3 #### [address] [address] [place], [place] MCV Entitic volume (RBC) 91.9 fL Normal 80.0-98.0 [facility] Comment on above: Performed By: #### H EMOG, PT, BMP3 #### [address] Platelet mean volume Entitic volume (Bld) 8.5 fL Normal 7.4-10.4 [facility] Comment on above: Performed By: #### H EMOG, PT, BMP3 #### [address] Platelets #/vol (Bld) 335 10*3/uL Normal 140-440 [facility] Comment on above: Performed By: #### H EMOG, PT, BMP3 #### [address] [address] [place], [place] RBC #/vol (Bld) 4.49 10*6/uL Normal 4.40-5.90 [facility] Comment on above: Performed By: #### H EMOG, PT, BMP3 #### [address] WBC #/vol (Bld) 13.3 10*3/uL High 3.6-10.7 [facility] Comment on above: Performed By: #### H EMOG, PT, BMP3 #### [address] Prothrombin Timeon 9 INR Coag RelTime (PPP) 0.9 Normal 0.9-1.1 [facility] [employer] [facility] Comment on above: Result Comment: Tigre mmended [...] By: #### H EMOG, PT, BMP3 #### [facility] [employer] [facility] [address] [place], [place] Prothrombin time (PT) Coag time (PPP) 10.0 s Normal 9.0-12.0 [facility] Comment on above: Result Comment: . Performed By: #### H EMOG, PT, BMP3 #### [facility] [address] [place] [address] TS GELon 11-16-2018 TS GEL ABO Group: A Rh, Gel: NEG Antibody Screen Gel: NEG Normal [facility] Comment on above: Performed By: #### H EMOLuis A, BMP3, PT #### The performing lab is in the report. BMPon 05-10-2018 Anion gap 3 molar conc 11 mmol/L Normal 5-16 [facility] Comment on above: Order Comment: Aguilar Amaro Performed By: #### L 500.15768, L500.74934 ####[facility] [id number] [place], [place] [address]Gz# [phone] Calcium mass conc 8.9 mg/dL Normal 8.5-10.1 [facility] Comment on above: Order Comment: Aguilar Amaro Performed By: #### L 500.68390, L500.84356 ####[facility] [id number] [place], [place] [address]Lj# [phone] Chloride molar conc 109 mmol/L High 98-107 [facility] Comment on above: Order Comment: Campu s: M Performed By: #### L 500.02960, L500.67584 ####[facility] [id number] [place], [place] [address]Wa# [phone] CO2 molar conc 23 mmol/L Normal 21-32 [facility] Comment on above: Order Comment: Campu s: M Performed By: #### L 500.68832, L500.43181 ####[facility] [id number] [place], [place] [address]Ts# [phone] Creatinine mass conc 2.020 mg/dL High 0.670-1.170 [facility] Comment on above: Order Comment: Campu s: M Result Comment: Temi ents receiving either N-Acetylcysteine (NAC) orMetamizole prior to venipuncture, may have falsely depressedresults. Performed By: #### L 500.34032, L500.61019 ####[facility] [id number] [id number]# [phone] Glucose mass conc 66 mg/dL Low 70-100 [facility] Comment on above: Order Comment: Campu s: M Result Comment: 70-1 00- Normal Fasting; 100-125 Impaired Fasting; greaterthan 126 on more than one result- Diabetes. ADA guidelines.Results may be falsely elevated after the administration ofSulfapyridine.Results may be falsely depressed after the administration ofSulfasalazine. Performed By: #### L 500.33544, L500.95652 ####[facility] [id number] [place], [place] [address]Kj# [phone] Potassium molar conc 3.6 mmol/L Normal 3.5-5.1 [facility] Comment on above: Order Comment: Campu s: M Performed By: #### L 500.60094, L500.54705 ####[facility] [id number] [place], [place] [address]Sw# [phone] Sodium molar conc 143 mmol/L Normal 136-145 [facility] Comment on above: Order Comment: Campu s: M Performed By: #### L 500.58790, L500.57818 ####[facility] [id number] [place], [place] [address]My# [phone] Urea nitrogen mass conc 39 mg/dL High 7-26 [facility] Comment on above: Order Comment: Campu s: M Performed By: #### L 500.02265, L500.66288 ####[facility] [id number] [place], [place] [address]Bl# [phone] Urea nitrogen/Creatinine mass ratio 19 mg/mg Normal 15-24 [facility] Comment on above: Order Comment: Campu s: M Performed By: #### L 500.01984, L500.51245 ####[facility] [id number] [place] [address]Oq# [phone] GFR ESTon 05-10-2018 IF AMER 39 ML/MIN Normal [facility] Comment on above: Order Comment: Campu s: M Performed By: #### L 500.78103, L500.07080 ####[facility] [id number] [place] [address]Qv# [phone] IF non-AFR AMER 32 ML/MIN Normal [facility] Comment on above: Order Comment: Campu s: M Performed By: #### L 500.66698, L500.60905 ####[facility] [id number] [place] [address]Oe# [phone] GLUCOSE METERon 05-10-2018 Glucose mass conc 116 mg/dL Normal 85-125 [facility] Glucose mass conc 71 mg/dL Low 85-125 [facility] ORon 05-10-2018 OPERATIVE REPORT Normal [facility] OR DATE OF SERVICE: 05/10/2018PREOPERATIVE DIAGNOSIS: Epiretinal [...] atphysiologic pressure dexamethasone was administered subconjunctivally inferiorly. [facility] PATIENT NAME: BRIAN JOSHI[address] MEDICAL REC #: [id number], [place] [address] DATE:DISCHARGE DATE:OPERATIVE REPORT ATTENDING PHY: Osorio Acharya MDThe lid speculum and drapes were removed. Atropine drops and Maxitrol ointment wereplaced. A patch and shield were placed. ___Osorio Acharya, [facility]/[id number]: 05/10/2018 09:07DT: 05/10/2018 09:43SSI File#: [id number] #: [id number]/Reviewed by07/12/18 1225 JULY [facility] PATIENT NAME: LUIS JOSHI [facility] [address] [facility] REC #: [id number], [place] [address] DATE:DISCHARGE DATE:OPERATIVE REPORT ATTENDING PHY: Osorio Acharya MD [facility] Basic Metabolic Panelon 03-0 Calcium mass conc 9.5 mg/dL Normal 8.4-10.2 [facility] Comment on above: Performed By: #### H MURPHY SINGLETON3, PT #### The performing lab is in the report. Anion gap molar conc 13 mmol/L Normal [facility] Comment on above: Performed By: #### H MURPHY SINGLETON3, PT #### The performing lab is in the report. CO2 molar conc 24 mmol/L Normal 22-30 [facility] Comment on above: Performed By: #### H MANI BMP3, PT #### The performing lab is in the report. Creatinine mass conc 1.86 mg/dL High 0.52-1.25 [facility] Comment on above: Performed By: #### MURPHY CARTER3, PT #### The performing lab is in the report. GFR/1.73 sq M predicted among blacks MDRD vol rate/area (S/P/Bld) 42.9 mL/min/{1.73_m2} Normal >60 [facility] Comment on above: Performed By: #### MURPHY CARTER3, PT #### The performing lab is in the report. GFR/1.73 sq M predicted among non-blacks MDRD vol rate/area (S/P/Bld) 35.4 mL/min/{1.73_m2} Normal >60 [facility] Comment on above: Result Comment: Sour ce- MDRD equation with creatinine calibration to IDMS(NKDEP) eGFR not recommended for drug dose adjustment Performed By: #### MURPHY CARTER3, PT #### The performing lab is in the report. Glucose mass conc 90 mg/dL Normal 70-100 [facility] Comment on above: Performed By: #### STEVEN CARTER, PT #### The performing lab is in the report. Urea nitrogen mass conc 41 mg/dL High 7-20 [facility] Comment on above: Performed By: #### STEVEN CARTER, PT #### The performing lab is in the report. Chloride molar conc 106 mmol/L Normal 98-107 [facility] Comment on above: Performed By: #### STEVEN CARTER, PT #### The performing lab is in the report. Potassium molar conc 4.3 mmol/L Normal 3.5-5.1 [facility] Comment on above: Performed By: #### MURPHY CARTER3, PT #### The performing lab is in the report. Sodium molar conc 144 mmol/L Normal 137-145 [facility] Comment on above: Performed By: #### MURPHY CARTER3, PT #### The performing lab is in the report. Hemogramon 12-22-2017 Erythrocyte distribution width Ratio (RBC) 13.5 % Normal 11.5-14.5 [facility] Comment on above: Performed By: #### H EMOG, BMP3, PT #### The performing lab is in the report. Hematocrit Volume Fraction (Bld) 40.5 % Normal 40.0-52.0 [facility] Comment on above: Performed By: #### MURPHY CARTER3, PT #### The performing lab is in the report. Hemoglobin mass conc (Bld) 13.1 g/dL Normal 13.0-18.0 [facility] Comment on above: Performed By: #### MURPHY CARTER3, PT #### The performing lab is in the report. MCH Entitic mass (RBC) 29.8 pg Normal 26.0-34.0 [facility] Comment on above: Performed By: #### MURPHY CARTER3, PT #### The performing lab is in the report. MCHC mass conc (RBC) 32.4 % Normal 32.0-36.0 [facility] Comment on above: Performed By: #### MURPHY CARTER3, PT #### The performing lab is in the report. MCV Entitic volume (RBC) 91.9 fL Normal 80.0-98.0 [facility] Comment on above: Performed By: #### MURPHY CARTER3, PT #### The performing lab is in the report. Platelet mean volume Entitic volume (Bld) 10.2 fL Normal 7.4-10.4 [facility] Comment on above: Performed By: #### MURPHY CARTER3, PT #### The performing lab is in the report. Platelets #/vol (Bld) 360 10*3/uL Normal 140-440 [facility] Comment on above: Performed By: #### MURPHY CARTER3, PT #### The performing lab is in the report. RBC #/vol (Bld) 4.41 10*6/uL Normal 4.40-5.90 [facility] Comment on above: Performed By: #### MURPHY CARTER3, PT #### The performing lab is in the report. WBC #/vol (Bld) 12.6 10*3/uL High 3.6-10.7 [facility] Comment on above: Performed By: #### H EMOG, BMP3, PT #### The performing lab is in the report. Prothrombin Timeon 8 INR Coag RelTime (PPP) 0.9 {INR} Normal 0.9-1.1 [facility] Comment on above: Result Comment: Tigre mmended [...] Coag time (PPP) 9.9 s Normal 9.0-12.0 [facility] Comment on above: Result Comment: . Performed By: #### H EMOG, BMP3, PT #### The performing lab is in the report. Culture, urine Bacteria identified Cx Nom (U) Culture exhibits no growth. [facility] Work Phone: Vital Signs Date Time Vital Sign Value Performing Clinician Facility 03-26-2025 09:36-0400 Body height 182.9 cm Jose Clarke [employer] Work Phone: [facility] 03-26-2025 09:36-0400 Body mass index (BMI) [Ratio] 24.14 kg/m2 Jose Clarke [employer] Work Phone: [facility] 03-26-2025 09:36-0400 Body temperature 98.71 [degF] Jose Clarke [employer] Work Phone: [facility] 03-26-2025 09:36-0400 Body weight 80.74 kg Jose Clarke [employer] Work Phone: [facility] 03-26-2025 09:36-0400 Diastolic blood pressure 55 mm[Hg] Jose Clarke [employer] Work Phone: [facility] 03-26-2025 09:36-0400 Heart rate 76 /min Jose Clarke DO Work Phone: [facility] [employer] 03-26-2025 09:36-0400 SaO2% (BldA) [Mass fraction] 98 % Jose Clarke DO Work Phone: [facility] [employer] 03-26-2025 09:36-0400 Systolic blood pressure 121 mm[Hg] Jose Clarke DO Work Phone: [facility] [employer] 12-21-2024 07:49-0500 Body height 182.9 cm Jose Clarke [facility] 12-21-2024 07:49-0500 Body mass index (BMI) [Ratio] 24.14 kg/m2 Jose Clarke DO Work Phone: [facility] [employer] 12-21-2024 07:49-0500 Body temperature 98.49 [degF] Jose Clarke DO Work Phone: [facility] [employer] 12-21-2024 07:49-0500 Body weight 80.74 kg Jose Clarke [facility] 12-21-2024 07:49-0500 Diastolic blood pressure 66 mm[Hg] Jose Clarke DO Work Phone: [facility] [employer] 12-21-2024 07:49-0500 Heart rate 73 /min Jose Clarke DO Work Phone: [facility] [employer] 12-21-2024 07:49-0500 SaO2% (BldA) [Mass fraction] 97 % Jose Clarke DO Work Phone: [employer] 12-21-2024 07:49-0500 Systolic blood pressure 135 mm[Hg] Jose Clarke DO Work Phone: [facility] [employer] 10-30-2024 08:17-0500 Body height 182.9 cm Jose Clarke DO Work Phone: [facility] 10-30-2024 08:17-0500 Body mass index (BMI) [Ratio] 23.6 kg/m2 Jose Clarke DO Work Phone: [facility] [employer] 10-30-2024 08:17-0500 Body temperature 98.6 [degF] Jose Clarke DO Work Phone: [facility] [employer] 10-30-2024 08:17-0500 Body weight 78.93 kg Jose Clarke DO Work Phone: [facility] [employer] 10-30-2024 08:17-0500 Diastolic blood pressure 58 mm[Hg] Jose Clarke DO Work Phone: [facility] [employer] 10-30-2024 08:17-0500 Heart rate 78 /min Jose Clarke DO Work Phone: [facility] [employer] 10-30-2024 08:17-0500 SaO2% (BldA) [Mass fraction] 96 % Jose Clarke DO Work Phone: [facility] [employer] 10-30-2024 08:17-0500 Systolic blood pressure 123 mm[Hg] Jose Clarke DO Work Phone: [facility] [employer] 07-03-2024 08:21-0400 Body height 185.4 cm Jose Clarke DO Work Phone: [facility] [employer] 07-03-2024 08:21-0400 Body mass index (BMI) [Ratio] 23.35 kg/m2 Jose Clarke DO Work Phone: [facility] [employer] 07-03-2024 08:21-0400 Body temperature 97.81 [degF] Jose Clarke DO Work Phone: [facility] [employer] 07-03-2024 08:21-0400 Body weight 80.29 kg Jose Clarke DO Work Phone: [facility] [employer] 07-03-2024 08:21-0400 Diastolic blood pressure 70 mm[Hg] Jose Marcusa DO Work Phone: [facility] [employer] 07-03-2024 08:21-0400 Heart rate 67 /min Jose Clarke DO Work Phone: [facility] [employer] 07-03-2024 08:21-0400 SaO2% (BldA) [Mass fraction] 99 % Jose Clarke DO Work Phone: [facility] [employer] 07-03-2024 08:21-0400 Systolic blood pressure 138 mm[Hg] Jose Clarke DO Work Phone: [facility] [employer] 02-07-2024 11:26-0400 Diastolic blood pressure 78 mm[Hg] Jose Clarke DO Work Phone: [facility] [employer] 02-07-2024 11:26-0400 Heart rate 68 /min Jose Clarke DO Work Phone: [facility] [employer] 02-07-2024 11:26-0400 Systolic blood pressure 136 mm[Hg] Jose Clarke DO Work Phone: [facility] [employer] 02-07-2024 10:49-0400 Body height 182.9 cm Jose Clarke DO Work Phone: [facility] [employer] 02-07-2024 10:49-0400 Body mass index (BMI) [Ratio] 24.55 kg/m2 Jose Clarke DO Work Phone: [facility] [employer] 02-07-2024 10:49-0400 Body temperature 97.7 [degF] Jose Clarke DO Work Phone: [facility] [employer] 02-07-2024 10:49-0400 Body weight 82.1 kg Jose Clarke DO Work Phone: [facility] [employer] 02-07-2024 10:49-0400 SaO2% (BldA) [Mass fraction] 95 % Jose Clarke DO Work Phone: [facility] [employer] 11-08-2023 08:21-0500 Body height 182.9 cm Jose Clarke DO Work Phone: [facility] [employer] 11-08-2023 08:21-0500 Body mass index (BMI) [Ratio] 24.01 kg/m2 Jose Clarke DO Work Phone: [facility] [employer] 11-08-2023 08:21-0500 Body temperature 98.2 [degF] Jose Clarke DO Work Phone: [facility] [employer] 11-08-2023 08:21-0500 Body weight 80.29 kg Jose Clarke DO Work Phone: [facility] [employer] 11-08-2023 08:21-0500 Diastolic blood pressure 60 mm[Hg] Jose Clarke DO Work Phone: [facility] [employer] 11-08-2023 08:21-0500 Heart rate 91 /min Jose Clarke DO Work Phone: [facility] [employer] 11-08-2023 08:21-0500 SaO2% (BldA) [Mass fraction] 97 % Jose Clarke DO Work Phone: [facility] [employer] 11-08-2023 08:21-0500 Systolic blood pressure 123 mm[Hg] Jose Clarke DO Work Phone: [facility] [employer] 02-14-2023 12:21-0400 Body height 182.9 cm Jose Clarke DO Work Phone: [facility] [employer] 02-14-2023 12:21-0400 Body mass index (BMI) [Ratio] 23.6 kg/m2 Jose Clarke DO Work Phone: [facility] [employer] 02-14-2023 12:21-0400 Body temperature 98.4 [degF] Jose Clarke DO Work Phone: [facility] [employer] 02-14-2023 12:21-0400 Body weight 78.93 kg Jose Clarke DO Work Phone: [facility] [employer] 02-14-2023 12:21-0400 Diastolic blood pressure 65 mm[Hg] Jose Clarke DO Work Phone: [facility] [employer] 02-14-2023 12:21-0400 Heart rate 70 /min Jose Clarke DO Work Phone: [facility] [employer] 02-14-2023 12:21-0400 SaO2% (BldA) [Mass fraction] 98 % Jose Clarke DO Work Phone: [facility] [employer] 02-14-2023 12:21-0400 Systolic blood pressure 134 mm[Hg] Jose Clarke DO Work Phone: [facility] 02-03-2023 12:41-0400 Diastolic blood pressure 70 mm[Hg] [facility] 02-03-2023 12:41-0400 Systolic blood pressure 160 mm[Hg] [facility] 02-03-2023 11:12-0400 Heart rate 90 /min [facility] 02-03-2023 10:41-0400 Body height 172.72 cm [facility] 02-03-2023 10:41-0400 Body mass index (BMI) [Ratio] 26.1 kg/m2 [facility] 02-03-2023 10:41-0400 Body temperature 97.4 [degF] [facility] 02-03-2023 10:41-0400 Body weight 77.9 kg [facility] 02-03-2023 10:41-0400 Respiratory rate 15 /min [facility] 02-03-2023 10:41-0400 SaO2% (BldA) [Mass fraction] 98 % [facility] 09-13-2022 13:45-0500 Body temperature 98.4 [degF] Dr. Jose Clarke Work Phone: [facility] Work Phone: 09-13-2022 13:45-0500 Diastolic blood pressure 58 mm[Hg] Dr. Jose Clarke Work Phone: [facility] Work Phone: 09-13-2022 13:45-0500 Heart rate 71 /min Dr. Jose Clarke Work Phone: [facility] Work Phone: 09-13-2022 13:45-0500 Respiratory rate 18 /min Dr. Jose Clakre Work Phone: [facility] Work Phone: 09-13-2022 13:45-0500 SaO2% (BldA) [Mass fraction] 98 % Dr. Jose Clarke Work Phone: [facility] Work Phone: 09-13-2022 13:45-0500 Systolic blood pressure 127 mm[Hg] Dr. Jose Clarke Work Phone: [facility] Work Phone: 09-08-2022 11:17-0500 Body height 182.[address] Jose Clarke Work Phone: [facility] Work Phone: 09-08-2022 11:17-0500 Body weight 81.[address] Jose Clarke Work Phone: [facility] Work Phone: 09-01-2022 16:56-0500 SaO2% (BldA) [Mass fraction] 96 % Dr. Jose Clarke Work Phone: [facility] Work Phone: 09-01-2022 15:02-0500 Diastolic blood pressure 51 mm[Hg] Dr. Jose Clarke Work Phone: [facility] Work Phone: 09-01-2022 15:02-0500 Heart rate 80 /min Dr. Jose Clarke Work Phone: [facility] Work Phone: 09-01-2022 15:02-0500 Systolic blood pressure 123 mm[Hg] Dr. Jose Clarke Work Phone: [facility] Work Phone: 09-01-2022 13:28-0500 Body temperature 97 [degF] Dr. Jose Clarke Work Phone: [facility] Work Phone: 09-01-2022 13:28-0500 Inhaled oxygen flow rate 2 L/min Dr. Jose Clarke Work Phone: [facility] Work Phone: 09-01-2022 13:28-0500 Respiratory rate 16 /min Dr. Jose Clarke Work Phone: [facility] Work Phone: 09-01-2022 05:56-0500 Body weight 81.[address] Jose Clarke Work Phone: [facility] Work Phone: 08-29-2022 23:31-0500 Body mass index (BMI) [Ratio] 23.7 kg/m2 Dr. Jose Clarke Work Phone: [facility] Work Phone: 08-28-2022 19:24-0400 Body temperature 98.8 [degF] [facility] Work Phone: 08-28-2022 19:24-0400 Diastolic blood pressure 62 mm[Hg] [facility] Work Phone: 08-28-2022 19:24-0400 Heart rate 88 /min [facility] Work Phone: 08-28-2022 19:24-0400 Respiratory rate 18 /min [facility] Work Phone: 08-28-2022 19:24-0400 SaO2% (BldA) [Mass fraction] 96 % [facility] Work Phone: 08-28-2022 19:24-0400 Systolic blood pressure 153 mm[Hg] [facility] Work Phone: 08-28-2022 15:54-0400 Body height 185.42 cm [facility] Work Phone: 08-28-2022 15:54-0400 Body mass index (BMI) [Ratio] 22.3 kg/m2 [facility] Work Phone: 08-28-2022 15:54-0400 Body weight 76.65 kg [facility] Work Phone: 04-23-2021 13:15-0400 Diastolic blood pressure [...] Work Phone: [facility] Work Phone: NEGATED: Highlighted [id number] 11:25-0500 BMI (Body Mass Index) 26.64 kg/m2 Arlene Neely LPN [facility] Work Phone: NEGATED: Highlighted [id number] 11:25-0500 BP Diastolic 69 mm[Hg] Arlene Neely LPN [facility] Work Phone: NEGATED: Highlighted [id number] 11:25-0500 BP Diastolic 75 mm[Hg] Arlene Neely LPN [facility] Work Phone: NEGATED: Highlighted [id number] 11:25-0500 BP Systolic 164 mm[Hg] Arlene Neely COMMODITY INDU[employer]Y ANALYST [facility] Work Phone: NEGATED: Highlighted [id number] 11:25-0500 BP Systolic 159 mm[Hg] Arleneshukri Neely COMMODITY INDUSTRY ANALYST [facility] Work Phone: NEGATED: Highlighted [id number] 11:25-0500 Height 181.61 cm Arlene Neely COMMODITY INDUSTRY ANALYST [facility] Work Phone: NEGATED: Highlighted [id number] 11:25-0500 Height 182 cm Arlenejuliet Neely COMMODITY INDUSTRY ANALYST [facility] Work Phone: NEGATED: Highlighted [id number] 11:25-0500 Pulse (Heart Rate) 69 /min Arlene Neely LPN [facility] Work Phone: NEGATED: Highlighted [id number] 11:25-0500 Weight 87.54 kg Arlene Neely COMMODITY INDUSTRY ANALYST [facility] Work Phone: NEGATED: Highlighted [id number] 11:25-0500 Weight 88 kg Arleneshukri Neely COMMODITY INDUSTRY ANALYST [facility] Work Phone: Encounters Encounter Date Encounter Type Care Provider Facility Start: 03-26-2025 End: 03-26-2025 Office outpatient visit 25 minutes Jose Clarke DO Work Phone: [facility] [place] Comment on above: Type 2 diabetes yanely itus with stage 3b chronic kidney disease, with long-term current use of insulin (HCC) (Primary Dx); 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; Essential hypertension; Hypercholesterolemia with hypertriglyceridemia; Balanitis; Stage 3b chronic kidney disease (HCC) Start: 03-26-2025 End: 03-26-2025 ambulatory [facility] Start: 02-27-2025 End: 02-27-2025 Orders Only Jose Clarke DO Work Phone: [facility] Start: 02-11-2025 End: 02-12-2025 Refill Jose Clarke DO Work Phone: [facility] Start: 12-21-2024 End: 12-21-2024 Office outpatient visit 25 minutes Jose Lirianoniteshevy DO Work Phone: [facility] Comment on above: Vertigo (Primary Dx) ; Essential hypertension; Stage 3b chronic kidney disease (HCC); 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; Hypercholesterolemia with hypertriglyceridemia; Right thalamic stroke (HCC); Hypoglycemic event due to diabetes (HCC); Other constipation Start: 12-21-2024 End: 12-21-2024 ambulatory [facility] Start: 12-17-2024 End: 12-17-2024 Emergency department patient visit [facility] Start: 12-17-2024 End: 12-18-2024 ambulatory Harvey Flores Facility:[facility] Start: 11-13-2024 End: 11-21-2024 Patient encounter procedure Paz Moffett RN [facility] al Communication Start: 11-13-2024 End: 11-13-2024 Office outpatient visit 15 minutes Jose Payton Evy DO Work Phone: [facility] Comment on above: Adverse effect of or al hypoglycemic drug, initial encounter (Primary Dx); Type 2 diabetes mellitus with stage 3b chronic kidney disease, with long-term current use of insulin (HCC) Start: 11-13-2024 End: 11-21-2024 ambulatory Paz Moffett RN [facility] Clinical Communication Start: 11-08-2024 End: 01-18-2025 Orders Only Jose Clarke DO Work Phone: [facility] Comment on above: Medication Question Start: 11-05-2024 End: 11-05-2024 Telephone encounter Jose Clarke DO Work Phone: [facility] Comment on above: Results Start: 10-30-2024 End: 10-30-2024 Office outpatient visit 25 minutes Jose Clarke DO Work Phone: [facility] Comment on above: Type 2 diabetes yanely itus with stage 3b chronic kidney disease, without long-term current use of insulin (HCC) (Primary Dx); Hypercholesterolemia with hypertriglyceridemia; Stage 3b chronic kidney disease (HCC); 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; Essential hypertension; Chronic left-sided lumbar radiculopathy; Left foot drop Start: 10-30-2024 End: 10-30-2024 ambulatory [facility] Start: 10-19-2024 End: 01-18-2025 Transcribe Orders Radha Torres MD Work Phone: [facility] Comment on above: Chronic kidney disea se, stage 3a (HCC) (Primary Dx); Secondary hyperparathyroidism of renal origin (HCC) Start: 09-19-2024 End: 09-19-2024 Refill Jose Clarke DO Work Phone: [facility] Start: 09-17-2024 End: 09-17-2024 Refill Jose Clarke DO Work Phone: [facility] Start: 09-13-2024 End: 09-13-2024 Orders Only Jose Clarke DO Work Phone: [facility] Start: 09-09-2024 End: 09-11-2024 Refill Jose Clarke DO Work Phone: [facility] Start: 07-12-2024 End: 07-12-2024 Refill Jose Clarke DO Work Phone: [facility] Start: 07-03-2024 End: 07-03-2024 Assay of hemosiderin, quant Jose Clarke DO Work Phone: [facility] Start: 07-03-2024 End: 07-03-2024 Patient encounter procedure Jose Clarke DO Work Phone: [facility] Comment on above: Encounter for subseq uent annual wellness visit (AWV) in Medicare patient (Primary Dx); Essential hypertension; Hypercholesterolemia with hypertriglyceridemia; 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; Type 2 diabetes mellitus with chronic kidney disease, without long-term current use of insulin, unspecified CKD stage (HCC); Routine general medical examination at health care facility Start: 07-03-2024 End: 07-03-2024 ambulatory [facility] Start: 07-03-2024 End: 07-03-2024 Encounter for general adult medical examination without abnormal findings [facility] Start: 06-17-2024 End: 06-18-2024 Refill Jose Clarke DO Work Phone: [facility] Start: 04-03-2024 Refill Jose dowlinga DO Work Phone: [facility] Start: 02-28-2024 Refill Jose dowlinga DO Work Phone: [facility] Start: 02-13-2024 Refill Jose dowlinga DO Work Phone: [facility] Start: 02-07-2024 Telephone encounter Jose Mccurdy darwin DO Work Phone: [facility] Comment on above: Orders (Ortho referr al) Start: 02-07-2024 End: 02-07-2024 Office outpatient visit 15 minutes Jose Clarke DO Work Phone: [facility] Comment on above: Type 2 diabetes yanely itus with chronic kidney disease, without long-term current use of insulin, unspecified CKD stage (HCC) (Primary Dx); Essential hypertension; Chronic left-sided lumbar radiculopathy; Skin lesion of hand; Hypercholesterolemia with hypertriglyceridemia Start: 12-21-2023 Refill Jose Liriano lla DO Work Phone: [facility] Medicine Start: 12-14-2023 Refill Jose Liriano lla DO Work Phone: [facility] Clinical Communication Start: 11-13-2023 Orders Only Jose Liriano lla DO Work Phone: [facility] Start: 11-08-2023 End: 11-08-2023 Office outpatient visit 25 minutes Jose Marcusa DO Work Phone: [facility] Comment on above: Type 2 diabetes yanely itus with chronic kidney disease, without long-term current use of insulin, unspecified CKD stage (HCC) (Primary Dx); Essential hypertension; Stage 3b chronic kidney disease (HCC); Hypercholesterolemia with hypertriglyceridemia; 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; Chronic left-sided lumbar radiculopathy; Lumbar degenerative disc disease Start: 10-21-2023 Transcribe Orders Radha Torres MD Work Phone: [facility] Comment on above: Chronic kidney disea se, stage 3a (HCC) (Primary Dx); Secondary hyperparathyroidism of renal origin (HCC) Start: 08-07-2023 Refill Jose Liriano lla DO Work Phone: [facility] Start: 06-22-2023 Orders Only Jose Liriano lla DO Work Phone: [facility] Medicine Start: 06-20-2023 Refill Jose Liriano lla DO Work Phone: [facility] Medicine Start: 06-19-2023 Orders Only Jose Liriano lla DO Work Phone: [facility] Start: 05-19-2023 Refill Jose Payton Heri dowlingevy DO Work Phone: [facility] Start: 02-16-2023 Orders Only Jose Payton Heri dowlingevy DO Work Phone: [facility] Start: 02-14-2023 End: 02-14-2023 Office outpatient visit 25 minutes Jose Clarke DO Work Phone: [facility] Comment on above: Acquired left foot d rop (Primary Dx); 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; Stage 3a chronic kidney disease (HCC); Essential hypertension; Type 2 diabetes mellitus with chronic kidney disease, without long-term current use of insulin, unspecified CKD stage (HCC); Chronic left-sided lumbar radiculopathy Start: 02-03-2023 End: 02-03-2023 Emergency department patient visit [facility]Emergency [facility] Start: 12-06-2022 Refill Jose stern DO Work Phone: [facility] Start: 10-27-2022 Transcribe Orders Radha Torres MD Work Phone: [facility] Laboratory Comment on above: Chronic kidney disea se, stage 3a (HCC) (Primary Dx); Secondary hyperparathyroidism of renal origin (CMS/HCC) (HCC) Start: 09-01-2022 End: 09-13-2022 Evaluation and management of inpatient Dr. Jose Clarke Work Phone: [facility]-Transitional Care Unit Start: 09-01-2022 Non-patient / Non-visit Dr. Matias Clarke Work Phone: [facility] Start: 08-31-2022 Non-patient / Non-visit Dr. Matias Clarke Work Phone: [facility] Start: 08-30-2022 Non-patient / Non-visit Dr. Matias Clarke Work Phone: [facility] Start: 08-29-2022 Non-patient / Non-visit Dr. Matias Clarke Work Phone: [facility] Start: 08-28-2022 End: 09-01-2022 Evaluation and management of inpatient [facility]-Medical Surgical 3 Start: 03-12-2022 Non-patient / Non-visit Dr. Matias Clarke Work Phone: [facility] Start: 03-12-2022 End: 03-12-[address] Jose Clarke Work Phone: [facility]-Cardiovascul ar Services Start: 03-10-2022 End: 03-10-2022 Subsequent hospital visit by physician Jose Clarke DO Work Phone: [facility] Comment on above: Acute hip pain, left ; Acute left-sided low back pain with left-sided sciatica Start: 05-25-2021 End: 05-25-2021 Subsequent hospital visit by physician Radha Torres MD Work Phone: [facility] Laboratory Start: 04-23-2021 End: 04-23-2021 Emergency department patient visit Bucky Dunne Radha DO Work Phone: [facility] [place] [facility] Comment on above: Pneumonia of right l ower lobe due to infectious organism (Primary Dx); Septicemia (HCC); Renal insufficiency; Type 2 diabetes mellitus with other specified complication, unspecified whether retirement insulin use (HCC) Start: 11-24-2020 End: 11-24-2020 Subsequent hospital visit by physician Radha Torres Work Phone: [facility] Start: 09-01-2020 End: 09-01-2020 Subsequent hospital visit by physician Pastor Vines Work Phone: [facility] Start: 05-20-2020 End: 05-20-2020 Subsequent hospital visit by physician Radha Torres Work Phone: [facility] Laboratory Start: 11-20-2019 End: 11-20-2019 Subsequent hospital visit by physician Radha Torres MD Work Phone: [facility] Laboratory Start: 11-23-2018 End: 11-23-2018 Patient encounter procedure Eh Morton MD Work Phone: [facility] Work Phone: Start: 11-16-2018 Emergency department patient visit PROVIDER UNKNOWN [facility] Start: 05-10-2018 Evaluation and manag ement of inpatient Osorio Acharya Facility:[facility] Start: 05-02-2018 Patient encounter Osorio Acharya Fa cility:[facility] Start: 12-23-2017 Patient encounter procedure KELSIE RUIZ QUE [facility] Start: 12-22-2017 Patient encounter procedure KELSIE RUIZ QUE [facility] Procedures Date Procedure Procedure Detail Performing Clinician [...] DTaP/Tdap/Td Vaccines (2 - Td or Tdap) [facility] Start: 03-26-2026 Depression Screening Depression Screening [facility] Start: 10-30-2025 Depression Screening Depression Screening [facility] Start: 10-19-2025 Diabetes: Estimated Glomerular Filtration Rate for Kidney Health Diabetes: Estimated Glomerular Filtration Rate for Kidney Health [facility] Start: 07-30-2025 End: 07-30-2025 Patient encounter procedure 07/30/2025 10:20 AM EDT [facility] [address] [place] [address] Jose Clarke DO [address] [place] [address] [facility] [place] Start: 07-09-2025 End: 07-09-2025 Patient encounter procedure [facility] Start: 07-03-2025 Depression Screening Depression Screening [facility] Start: 07-03-2025 Diabetes: Estimated Glomerular Filtration Rate for Kidney Health Diabetes: Estimated Glomerular Filtration Rate for Kidney Health [facility] Start: 06-24-2025 Influenza vaccination Influenza Vaccine (Season Ended) [facility] Start: 03-26-2025 End: 03-26-2026 CBC W Auto Differential panel - Blood CBC auto differential Lab Routine Type 2 diabetes mellitus with stage 3b chronic kidney disease, with long-term current use of insulin (HCC) Expected: 03/26/2025 (Approximate), Expires: 03/26/2026 [facility] Comment on above: Expected: 03/26/2025 (Approximate), Expi res: 03/26/2026 Start: 03-26-2025 End: 03-26-2026 Comprehensive metabolic 1998 panel - Serum or Plasma Comprehensive metabolic panel Lab Routine Type 2 diabetes mellitus with stage 3b chronic kidney disease, with long-term current use of insulin (HCC) Expected: 03/26/2025 (Approximate), Expires: 03/26/2026 [facility] Comment on above: Expected: 03/26/2025 (Approximate), Expi res: 03/26/2026 Start: 03-26-2025 End: 03-26-2026 Hemoglobin A1c measurement Hemoglobin A1c Lab Routine Type 2 diabetes mellitus with stage 3b chronic kidney disease, with long-term current use of insulin (HCC) Expected: 03/26/2025 (Approximate), Expires: 03/26/2026 [facility] Comment on above: Expected: 03/26/2025 (Approximate), Expi res: 03/26/2026 Start: 03-26-2025 End: 03-26-2026 Lipid 1996 panel - Serum or Plasma Lipid panel Lab Routine Type 2 diabetes mellitus with stage 3b chronic kidney disease, with long-term current use of insulin (HCC) Expected: 03/26/2025 (Approximate), Expires: 03/26/2026 [facility] Comment on above: Expected: 03/26/2025 (Approximate), Expi res: 03/26/2026 Start: 03-26-2025 End: 03-26-2026 Microalbumin/Creatinine panel in random Urine Microalbumin / creatinine, urine ratio Lab Routine Type 2 diabetes mellitus with stage 3b chronic kidney disease, with long-term current use of insulin (HCC) Expected: 03/26/2025 (Approximate), Expires: 03/26/2026 [facility] Work Phone: Comment on above: Expected: 03/26/2025 (Approximate), Expi res: 03/26/2026 Start: 03-26-2025 End: 03-26-2025 Patient encounter procedure 03/26/2025 9:40 AM EDT Office Visit [facility] [address] [place] [address] Jose Clarke DO [address] [place] [address] [facility] Start: 02-01-2025 End: 02-01-2025 Patient encounter procedure 02/01/2025 8:00 AM EDT Office Visit [facility] [address] [place] [address] Jose Clarke, DO [address] [place] [address] [facility] Start: 10-30-2024 End: 10-30-2025 Hemoglobin A1c measurement Hemoglobin A1c Lab Routine Chronic left-sided lumbar radiculopathy Expected: 10/30/2024 (Approximate), Expires: 10/30/2025 [facility] Work Phone: Comment on above: Expected: 10/30/2024 (Approximate), Expi res: 10/30/2025 Start: 10-30-2024 End: 10-30-2025 Lipid 1996 panel - Serum or Plasma Lipid panel Lab Routine Chronic left-sided lumbar radiculopathy Expected: 10/30/2024 (Approximate), Expires: 10/30/2025 [facility] Comment on above: Expected: 10/30/2024 (Approximate), Expi res: 10/30/2025 Start: 10-30-2024 End: 10-30-2024 Patient encounter procedure 10/30/2024 8:30 AM EST [facility] [address] [place] [address] Jose Clarke, [address] [place] [address] [facility] Start: 10-24-2024 Medicare Advantage Annual Wellness Visit Medicare Advantage Annual Wellness Visit [facility] Start: 07-03-2024 End: 07-03-2025 CBC W Auto Differential panel - Blood CBC auto differential Lab Routine Essential hypertension Expected: 07/03/2024 (Approximate), Expires: 07/03/2025 [facility] Work Phone: Comment on above: Expected: 07/03/2024 (Approximate), Expi res: 07/03/2025 Start: 07-03-2024 End: 07-03-2025 Comprehensive metabolic 1998 panel - Serum or Plasma Comprehensive metabolic panel Lab Routine Essential hypertension Expected: 07/03/2024 (Approximate), Expires: 07/03/2025 [facility] Comment on above: Expected: 07/03/2024 (Approximate), Expi res: 07/03/2025 Start: 07-03-2024 End: 07-03-2025 Lipid 1996 panel - Serum or Plasma Lipid panel Lab Routine Hypercholesterolemia with hypertriglyceridemia Expected: 07/03/2024 (Approximate), Expires: 07/03/2025 [facility] Comment on above: Expected: 07/03/2024 (Approximate), Expi res: 07/03/2025 Start: 07-03-2024 End: 07-03-2024 Patient encounter procedure 07/03/2024 8:30 AM EDT Office Visit [facility] Medicine [address] [place] [id number] Jose Clarke DO [address] [place] [address] [place] [id number] [facility] Start: 06-24-2024 COVID-19 Vaccine ( season) COVID-19 Vaccine ( season) [facility] Start: 06-24-2024 COVID-19 Vaccine ( season) COVID-19 Vaccine ( season) [facility] Start: 06-24-2024 Influenza vaccination Influenza Vaccine (#1) [facility] Start: 05-22-2024 End: 05-22-2024 Patient encounter procedure 05/22/2024 8:30 AM EDT Office Visit [facility] Medicine [address] [place] [address] Jose Clarke DO [address] [place] [id number] [facility] Start: 02-07-2024 End: 02-06-2025 Comprehensive metabolic 1997 panel - Serum or Plasma Comprehensive metabolic panel Lab Routine Type 2 diabetes mellitus with chronic kidney disease, without long-term current use of insulin, unspecified CKD stage (HCC) Expected: 02/07/2024 (Approximate), Expires: 02/06/2025 [facility] [employer] [facility] Work Phone: Comment on above: Expected: 02/07/2024 (Approximate), Expi res: 02/06/2025 Start: 02-07-2024 End: 02-06-2025 Hemoglobin A1c measurement Hemoglobin A1c Lab Routine Type 2 diabetes mellitus with chronic kidney disease, without long-term current use of insulin, unspecified CKD stage (HCC) Expected: 02/07/2024 (Approximate), Expires: 02/06/2025 [facility] Comment on above: Expected: 02/07/2024 (Approximate), Expi res: 02/06/2025 Start: 02-07-2024 End: 02-06-2025 Lipid 1996 panel - Serum or Plasma Lipid panel Lab Routine Hypercholesterolemia with hypertriglyceridemia Expected: 02/07/2024 (Approximate), Expires: 02/06/2025 [facility] Comment on above: Expected: 02/07/2024 (Approximate), Expi res: 02/06/2025 Start: 02-07-2024 End: 02-07-2024 Patient encounter procedure 02/07/2024 11:00 AM EDT Office Visit [facility] [address] [place] [address] Jose Clarke, [address] [place] [address] [place] [address] [facility] Start: 11-26-2023 COVID-19 Vaccine () COVID-19 Vaccine () [facility] Start: 11-08-2023 End: 11-08-2024 Basic metabolic 1998 panel - Serum or Plasma Basic metabolic panel Lab Routine Type 2 diabetes mellitus with chronic kidney disease, without long-term current use of insulin, unspecified CKD stage (HCC) Expected: 11/08/2023 (Approximate), Expires: 11/08/2024 [employer] Work Phone: Comment on above: Expected: 11/08/2023 (Approximate), Expi res: 11/08/2024 Start: 11-08-2023 End: 11-08-2024 Hemoglobin A1c measurement Hemoglobin A1c Lab Routine Type 2 diabetes mellitus with chronic kidney disease, without long-term current use of insulin, unspecified CKD stage (HCC) Expected: 11/08/2023 (Approximate), Expires: 11/08/2024 [facility] [employer] Comment on above: Expected: 11/08/2023 (Approximate), Expi res: 11/08/2024 Start: 11-08-2023 End: 11-08-2024 Lipid 1996 panel - Serum or Plasma Lipid panel Lab Routine Type 2 diabetes mellitus with chronic kidney disease, without long-term current use of insulin, unspecified CKD stage (HCC) Expected: 11/08/2023 (Approximate), Expires: 11/08/2024 [facility] [employer] Comment on above: Expected: 11/08/2023 (Approximate), Expi res: 11/08/2024 Start: 10-24-2023 Medicare Advantage Annual Wellness Visit Medicare Advantage Annual Wellness Visit [facility] Start: 10-06-2023 End: 10-06-2023 Patient encounter procedure [facility] Start: 06-24-2023 Influenza vaccination Influenza Vaccine (#1) [facility] Start: 06-17-2023 Lipid panel Lipid Panel [facility] Start: 06-14-2023 End: 06-14-2023 Patient encounter procedure [facility] Start: 05-16-2023 Hemoglobin A1c measurement Diabetes: Hemoglobin A1C [facility] Start: 03-30-2023 Pneumococcal Vaccine: 65+ Years (2 - PPSV23 if available, else PCV20) Pneumococcal Vaccine: 65+ Years (2 - PPSV23 if available, else PCV20) [facility] [employer] Start: 02-14-2023 End: 02-15-2024 Basic metabolic 1998 panel - Serum or Plasma Basic metabolic panel Lab Routine Type 2 diabetes mellitus with chronic kidney disease, without long-term current use of insulin, unspecified CKD stage (HCC) Expected: 02/14/2023 (Approximate), Expires: 02/15/2024 [facility] Work Phone: Comment on above: Expected: 02/14/2023 (Approximate), Expi res: 02/15/2024 Start: 02-14-2023 End: 02-15-2024 Hemoglobin A1c/Hemoglobin.total in Blood Hemoglobin A1c Lab Routine Type 2 diabetes mellitus with chronic kidney disease, without long-term current use of insulin, unspecified CKD stage (HCC) Expected: 02/14/2023 (Approximate), Expires: 02/15/2024 [facility] Comment on above: Expected: 02/14/2023 (Approximate), Expi res: 02/15/2024 Start: 02-03-2023 [facility] Start: 12-28-2022 Hemoglobin A1c measurement Diabetes: Hemoglobin A1C [facility] Start: 12-18-2022 COVID-19 Vaccine (6 - Moderna series) COVID-19 Vaccine (6 - Moderna series) [facility] Start: 10-07-2022 Blood chemistry [facility] Work Phone: Start: 09-30-2022 Blood chemistry [facility] Work Phone: Start: 09-23-2022 Blood chemistry [facility] Work Phone: Start: 09-16-2022 Blood chemistry [facility] Work Phone: Start: 09-13-2022 Development of care plan [facility] Work Phone: Start: 09-13-2022 Patient discharge [facility] Work Phone: Start: 09-09-2022 End: 09-10-2022 [facility] Work Phone: Start: 09-08-2022 Referral to service [facility] Work Phone: Start: 09-06-2022 [facility] Work Phone: Start: 09-02-2022 Development of care plan [facility] Work Phone: Start: 09-02-2022 Developing a treatment plan [facility] Work Phone: Start: 09-02-2022 Application of device [facility] Work Phone: Start: 09-01-2022 Verification routine [facility] Work Phone: Start: 09-01-2022 Following clinical pathway protocol [facility] Work Phone: Start: 09-01-2022 Wound care [facility] Work Phone: Start: 09-01-2022 Admission procedure [facility] Work Phone: Start: 09-01-2022 Measuring intake and output [facility] Work Phone: Start: 09-01-2022 Patient referral to dietitian [facility] Work Phone: Start: 09-01-2022 Referral to occupational therapist [facility] Work Phone: Start: 09-01-2022 Referral to service [facility] Work Phone: Start: 09-01-2022 Vital signs measurements [facility] Work Phone: Start: 09-01-2022 End: 09-01-2022 [facility] Work Phone: Start: 09-01-2022 Patient discharge [facility] Work Phone: Start: 08-29-2022 Consultation [facility] Work Phone: Start: 08-29-2022 Measuring intake and output [facility] Work Phone: Start: 08-29-2022 Measuring intake and output [facility] Work Phone: Start: 08-29-2022 End: 08-29-2022 [facility] Work Phone: Start: 08-29-2022 Ambulation therapy management [facility] Work Phone: Start: 08-29-2022 Application of device [facility] Work Phone: Start: 08-29-2022 Exercises [facility] Work Phone: Start: 08-29-2022 Following clinical pathway protocol [facility] Work Phone: Start: 08-29-2022 Introduction of urinary catheter [facility] Work Phone: Start: 08-29-2022 Neurovascular assessment [facility] Work Phone: Start: 08-29-2022 Patient education [facility] Work Phone: Start: 08-29-2022 Provision of activity privileges [facility] Work Phone: Start: 08-29-2022 Referral to occupational therapist [facility] Work Phone: Start: 08-29-2022 Referral to service [facility] Work Phone: Start: 08-29-2022 Vital signs measurements [facility] Work Phone: Start: 08-29-2022 Wound care [facility] Work Phone: Start: 08-29-2022 Measuring intake and output [facility] Work Phone: Start: 08-29-2022 Measuring intake and output [facility] Work Phone: Start: 08-28-2022 Following clinical pathway protocol [facility] Work Phone: Start: 08-28-2022 Incentive spirometry [facility] Work Phone: Start: 08-28-2022 Application of ice collar, cap or bag [facility] Work Phone: Start: 08-28-2022 Assessment of risk of venous thromboembolism [facility] Work Phone: Start: 08-28-2022 Bedrest [facility] Work Phone: Start: 08-28-2022 Care regimes management [facility] Work Phone: Start: 08-28-2022 Consultation [facility] Work Phone: Start: 08-28-2022 Fall prevention [facility] Work Phone: Start: 08-28-2022 Inhalation therapy procedure [facility] Work Phone: Start: 08-28-2022 Insertion of catheter into peripheral vein [facility] Work Phone: Start: 08-28-2022 Neurovascular assessment [facility] Work Phone: Start: 08-28-2022 Oxygen therapy [facility] Work Phone: Start: 08-28-2022 Providing care according to standard [facility] Work Phone: Start: 08-28-2022 Referral to occupational therapist [facility] Work Phone: Start: 08-28-2022 Referral to service [facility] Work Phone: Start: 08-28-2022 Skin care [facility] Work Phone: Start: 08-28-2022 [facility] Work Phone: Start: 08-28-2022 Measuring intake and output [facility] Work Phone: Start: 08-28-2022 Plain chest X-ray Chest 1 View (Portable) [facility] Work Phone: Start: 08-28-2022 XR Chest Single view [facility] Work Phone: Start: 08-28-2022 End: 08-29-2022 [facility] Work Phone: Start: 08-28-2022 Verification routine [facility] Work Phone: Start: 08-28-2022 Admission procedure [facility] Work Phone: Start: 08-25-2022 Lipid panel Lipids [facility] Start: 08-24-2022 Diabetic foot examination Diabetic foot exam [facility] Start: 05-15-2022 Diabetic retinal exam Diabetic retinal exam [facility] Start: 04-23-2022 Creatinine measurement Creatinine monitoring [facility] Work Phone: Start: 04-23-2022 Potassium monitoring Potassium monitoring [facility] Work Phone: Start: 04-22-2022 End: 04-22-2022 Patient encounter procedure 04/22/2022 Office Visit [facility] Jose Clarke Tata, DO [address] [place] [address] [facility] Start: 03-11-2022 End: 03-11-2022 Patient encounter procedure 03/11/2022 Office Visit [facility] Jose Clarke Tata, DO [address] [place] [address] [facility] Start: 02-22-2022 Hemoglobin A1c measurement A1C test (Diabetic or Prediabetic) [facility] Start: 02-06-2022 Depression Screen Depression Screen [facility] Start: 02-06-2022 Lipid panel Lipid screen [facility] Work Phone: Start: 10-09-2021 Annual Wellness Visit (AWV) Annual Wellness Visit (AWV) [facility] Start: 08-21-2021 Creatinine measurement Creatinine monitoring [facility] [place] Start: 08-21-2021 Potassium monitoring Potassium monitoring [facility] [place] [place] Start: 08-18-2021 End: 08-18-2021 Patient encounter procedure 08/18/2021 Office Visit [facility] Jose Chavis, DO [address] [place] [address] [phone] [facility] Start: 08-07-2021 End: 08-07-2021 Patient encounter procedure 08/07/2021 Office Visit [facility] Jose Chavis DO [address], [place] [id number] [facility] Start: 06-24-2021 Influenza vaccination Flu vaccine (#1) [facility] Work Phone: Start: 04-17-2021 Creatinine measurement Creatinine monitoring [facility] [place] Start: 04-17-2021 Potassium monitoring Potassium monitoring [facility] [place] [place] Start: 02-06-2021 End: 02-06-2021 Office Visit 02/06/2021 Office Visit Family Medicine Jose Clarke, DO [address] [place] [address] [phone] [facility] Start: 01-02-2021 Lipid panel Lipid screen [place], [place] Start: 10-16-2020 Shingles Vaccine (2 of 2) Shingles Vaccine (2 of 2) [place] Start: 10-08-2020 End: 10-08-2020 Office Visit 10/08/2020 Office Visit Family Medicine Jose Clarke, DO [address] [place] [address] [phone] [facility] Start: 09-12-2020 Creatinine monitoring Creatinine monitoring [facility] Work Phone: Start: 09-12-2020 Potassium monitoring Potassium monitoring [facility] Work Phone: Start: 08-15-2020 End: 08-15-2020 Office Visit 08/15/2020 Office Visit Family Jose Mejia, DO [address] [place] [address] [phone] [facility] Start: 06-24-2020 Influenza vaccination Flu vaccine (#1) [place] Start: 01-06-2020 Lipid screen Lipid screen [facility] Work Phone: Start: 12-13-2019 End: 12-13-2019 Patient encounter procedure 12/13/2019 Office Visit [facility] Jose Mejia DO [address] [place] [address] [phone] [facility] Start: 11-23-2019 Diabetes: Urine Albumin-Creatinine Ratio for Kidney Health Diabetes: Urine Albumin-Creatinine Ratio for Kidney Health [facility] Start: 04-12-2019 Annual Wellness Visit (AWV) Annual Wellness Visit (AWV) [facility] Work Phone: Start: 12-21-2018 End: 12-21-2018 Appointment Appointment [facility] Work Phone: Start: 11-23-2018 End: 11-23-2018 Appointment Appointment [facility] Work Phone: Start: 2016 RSV Immunization for Adults (1 - 1-dose 75+ series) RSV Immunization for Adults (1 - 1-dose 75+ series) [facility] Start: 2001 Hepatitis B Vaccines (1 of 3 - Risk 3-dose series) Hepatitis B Vaccines (1 of 3 - Risk 3-dose series) [facility] Start: 2001 RSV Immunization aged 60 or older (1 - 1-dose 60+ series) RSV Immunization aged 60 or older (1 - 1-dose 60+ series) [facility] Start: 1991 Shingles Vaccine (1 of 2) Shingles Vaccine (1 of 2) [facility] Work Phone: Start: 1960 Urine screening for protein Diabetes: Urine Protein Screening [facility] Start: 1957 COVID-19 Vaccine (1 of 2) COVID-19 Vaccine (1 of 2) [place], [place] Start: 1953 Depression Screening Depression Screening [facility] Start: 1951 Diabetic foot examination Diabetes: Foot Exam [facility] Start: 1951 Glaucoma screening Diabetes: Retinopathy Screening [facility] Start: 1951 Preventive dental service Diabetes: Dental Exam [facility] Start: 1941 Hepatitis B Vaccines (1 of 3 - 3-dose series) Hepatitis B Vaccines (1 of 3 - 3-dose series) [facility] Start: 1941 Hepatitis C screening Hepatitis C screen [place], [place] Start: 1941 Medicare Advantage Annual Wellness Visit (AWV) Medicare Advantage Annual Wellness Visit (AWV) [facility] End: 04-23-2021 Culture, Blood 2 Culture, Blood 2 Microbiology STAT One Time for 1 Occurrences starting 04/23/2021 until 04/23/2021 [facility] Work Phone: Comment on above: One Time for 1 Occurrences starting 10/2020 until 04/23/2021 Culture, Blood 2 Culture, Blood 2 Microbiology STAT 04/23/2021 9:34 AM EDT [employer] Work Phone: EKG 12 Lead - Chest Pain EKG 12 Lead - Chest Pain ECG STAT 04/23/2021 9:23 AM EDT [employer] Work Phone: End: 04-23-2021 Microscopic examination of blood, culture Culture, Blood Microbiology STAT One Time for 1 Occurrences starting 04/23/2021 until 04/23/2021 [facility] Work Phone: Comment on above: One Time for 1 Occurrences starting 10/2020 until 04/23/2021 Microscopic examinat ion of blood, culture Culture, Blood Microbiology STAT 04/23/2021 9:34 AM EDT [facility] Work Phone: OUTSIDE PROCEDURE SCAN OUTSIDE P ROCEDURE SCAN Procedures Ordered: 10/19/2024 [facility] Comment on above: Ordered: 10/19/2024 Patient Education [facility] Work Phone: Patient referral [facility] Work Phone: Immunizations Immunization Date Immunization Notes Care Provider [facility] 07-26-2023 COVID-19, mRNA, LNP- S, PF, don-sucrose, 30 mcg/0.3 mL Jose Clarke DO Work Phone: [facility] 07-26-2023 Influenza, Seasonal, Quadrivalent, Adjuvanted Jose Clarke DO Work Phone: [facility] 07-26-2023 influenza virus vaccine, unspecified formulation Jose Clarke DO Work Phone: [facility] 08-17-2022 Covid Pfizer Bivalen t Booster Dr. Jose Clarke Work Phone: [facility] 08-11-2022 influenza, high dose seasonal, preservative-free Dr. Jose Clarke Work Phone: [facility] 08-11-2022 Influenza, High-dose Seasonal, Quadrivalent, Preservative Free Jose Clarke DO Work Phone: [facility] [employer] 08-11-2022 influenza virus vaccine, unspecified formulation Jose Clarke DO Work Phone: [facility] [employer] 03-30-2022 Covid (Pfizer) Dr. Jose mariee Work Phone: [facility] 03-30-2022 pneumococcal conjuga te vaccine, [address] Jose Clarke Work Phone: [facility] [employer] 08-21-2021 COVID-19, Pfizer Pur ple top, DILUTE for use, 12+ yrs, 30mcg/0.3mL dose Jose Clarke DO Work Phone[facility] Work Phone: 07-30-2021 Influenza, High-dose , Quadv, 65 yrs +, IM (Fluzone) Jose Clarke DO Work Phone: [facility] Work Phone: 12-31-2020 COVID-19, Moderna, Primary or Immunocompromised, PF, 100mcg/0.5mL Jose Clarke DO Work Phone: [facility] Work Phone: 12-04-2020 COVID-19, Moderna, Primary or Immunocompromised, PF, 100mcg/0.5mL Jose Clarke DO Work Phone: [facility] Work Phone: 10-08-2020 zoster vaccine recombinant Jose Clarke DO Work Phone: [employer] Work Phone: 08-21-2020 zoster vaccine recombinant Jose Clarke DO Work Phone: [facility] Work Phone: 08-06-[address] Jose Clarke Work Phone: [facility] 08-06-2020 influenza virus vaccine, unspecified formulation Jose Evy DO Work Phone: [facility] 08-06-2020 influenza, seasonal, injectable Jose Clarke DO Work Phone: [facility] 07-29-2020 Influenza, High-dose , Quadv, 65 yrs +, IM (Fluzone) [employer] [facility] 08-10-2019 influenza, high dose seasonal, preservative-free Jose Clarke DO Work Phone: [facility] Work Phone: 11-16-2018 tetanus toxoid, redu shey diphtheria toxoid, and acellular pertussis vaccine, adsorbed Radha Torres MD Work Phone: [facility] 08-17-2018 influenza, high dose seasonal, preservative-free Radha Torres MD Work Phone: [facility] 07-28-2017 influenza, injectabl e, quadrivalent, contains preservative Radha Torres MD Work Phone: [facility] 08-13-2016 influenza, injectabl e, quadrivalent, contains preservative Radha Torres MD Work Phone: [facility] 08-26-2015 influenza, high dose seasonal, preservative-free Jose Clarke DO Work Phone: [facility] Work Phone: 02-16-2015 pneumococcal conjuga te vaccine, 13 valent Radha Torres MD Work Phone: [facility] Work Phone: 02-13-2015 pneumococcal conjuga te vaccine, [address] Jose Clarke Work Phone: [facility] 08-26-2014 influenza virus vaccine, unspecified formulation Radha Torres MD Work Phone: [facility] Work Phone: 08-26-2014 influenza virus vaccine, whole virus Jose Clarke DO Work Phone: [facility] Work Phone: 10-30-2008 pneumococcal Conjuga te, unspecified formulation Jose Clarke DO Work Phone: [facility] Work Phone: 10-30-2008 pneumococcal polysaccharide vaccine, 23 valmichelle Torres MD Work Phone: [facility] 10-30-2008 pneumococcal vaccine , unspecified formulation Dr. Jose Clarke Work Phone: [facility] No information available. Arlene Neely LPN [facility] Work Phone: Payers Date Payer Category Payer Self-pay [id number] 2023 Medicare HMO UHC AARP MEDICAR E ADVANTAGE LIFE1 [id number] 2022 Medicare [id number] 2019 Medicare UHC MEDICARE UHC MEDICARE COMPLETE [id number] 2019-Present [id number] 2019 Medicare [id number] 2016 Medicare [id number] 2014 Medicare SUMMACARE-MEDICA RE ADVANTAGE SUM[employer]ARE-MEDICARE ADVANTAGE xxxxxxxxxxx 2014-Present [phone] [address] [place] [address] xxxxxxxxxxx [id number] 1941 Unknown [id number] 1941 Unknown [id number] 1941 Unknown [id number] Unknown Unknown [id number] Unknown [id number] Unknown [id number] Social History Date Type Detail Facility Start: 05-12-2015 End: 04-17-2020 Tobacco smoking status NHIS Never smoker [facility] Start: 05-12-2015 End: 04-17-2020 Tobacco use and exposure Never used [place] Start: 04-17-2020 End: 03-26-2025 Alcohol intake Current non-drinker of alcohol (finding) [facility] Work Phone: Start: 03-03-2020 End: 05-06-2021 History SDOH Alcohol Frequency 1 [place] Start: 05-23-2019 End: 05-06-2021 History SDOH Social Connections Phone 5 [place] Start: 05-23-2019 History SDOH Stress 3 [facility] Work Phone: Start: 05-23-2019 History SDOH IPV Fear 2 M [place], [place] Start: 1940 Sex Assigned At Not on file [facility] [employer] Work Phone: Start: 04-23-2021 End: 07-03-2024 Alcohol intake [facility] Work Phone: Start: 10-17-2022 End: 06-14-2023 Exposure to SARS-CoV-2 (event) Not sure [facility] Start: 04-23-2021 End: 02-03-2023 Tobacco smoking status NHIS Unknown if ever smoked [facility] Start: 06-13-2020 Occasional [facility] Start: 06-13-2020 With Family [facility] Start: 07-31-2020 Non-smoker [facility] Start: 1940 Sex Assigned At Male [facility] Start: 02-14-2023 End: 07-03-2024 Tobacco use panel [facility] How often do you nee d to have someone help you when you read instructions, pamphlets, or other written material from your doctor or pharmacy [SILS] Never [facility] Has the [employer], or water [employer] threatened to shut off services in your home in past 12Mo No [facility] Are you now , , , , never or living with a partner? [facility] How often to you hav e a drink containing alcohol? Never [facility] How hard is it for y ou to pay for the very basics like food, housing, medical care, and heating Not very hard [facility] Do you feel stress - tense, restless, nervous, or anxious, or unable to sleep at night because your mind is troubled all the time - these days [OSQ] Not at all [facility] (I/We) worried wheth er (my/our) food would run out before (I/we) got money to buy more. Never true [facility] Start: 05-24-2022 Sex Male (finding) [facility] NEGATED: Highlighted rowStart: 11-23-2018 End: 11-23-2018 Alcohol use ETOH USE No [facility] Work Phone: NEGATED: Highlighted rowStart: 11-23-2018 End: 11-23-2018 Details of drug misuse behavior DRUG USE No [facility] Work Phone: NEGATED: Highlighted rowStart: 11-23-2018 End: 11-23-2018 Assertion Never smoker [facility] Work Phone: Medical Equipment Procedure Code Equipment Code Equipment Origin al Text Equipment Identifier Dates Primary uncemented hemiarthroplasty of hip KIT,FEMORAL BONE CEMENT PREP FDA Start: 08-29-2022 Primary uncemented hemiarthroplasty of hip ([id number]) Uncoated hip femur prosthesis, one-piece ()[id number] FDA Start: 08-29-2022 Primary uncemented hemiarthroplasty of hip ([id number]) Orthopaedic cement spacer ()[id number] FDA Start: 08-29-2022 Primary uncemented hemiarthroplasty of hip ([id number]) Coated hip femur prosthesis, modular ()[id number] FDA Start: 08-29-2022 Primary uncemented hemiarthroplasty of hip ([id number]) Uncoated hip femur prosthesis, one-piece ()[id number] FDA Start: 08-29-2022 Primary uncemented hemiarthroplasty of hip Orthopaedic cement, non-antimicrobial ()[id number] FDA Start: 08-29-2022 Primary uncemented hemiarthroplasty of hip KIT,FEMORAL BONE CEMENT PREP FDA Start: 08-29-2022 [id number] Start: 09-12-2019 1 each by Does n ot apply route 2 times daily [id number] Start: 04-17-2020 Tests bid [id number] Start: 10-31-2018 1 each by Does n ot apply route 2 times daily [id number] Start: 12-24-2020 1 each by Does n ot apply route 2 times daily [id number] Start: 10-22-2019 E11.9 Test 2 fabio es a day & as needed for symptoms of irregular blood glucose. Dispense sufficient amount for indicated testing frequency plus additional to accommodate PRN testing needs. [id number] Start: 12-22-2021 E11.9 Test 2 fabio es a day & as needed for symptoms of irregular blood glucose. Dispense sufficient amount for indicated testing frequency plus additional to accommodate PRN testing needs. [id number] Start: 12-22-2021 1 each. [id number] Start: 12-24-2020 1 each by Other route 2 times daily. [id number] Start: 02-13-2024 End: 07-12-2024 1 each by Other route 2 times daily. [id number] Start: 07-12-2024 1 each by Other route 2 times daily. Use as instructed [id number] Start: 09-17-2024 E11.9 Use to inject 1-4 times daily as directed. [id number] Start: 11-08-2024 End: 11-08-2025 Goals Date Patient Goal Desired Activity /State Comment on above: Pt has no goals at t his time. Formatting of this n ote might be different from the original. Pt has no goals at this time. Functional Status Date Assessment Result Facility 03-26-2025 Patient Health [facility] ionnaire 2 item (PHQ-2) [Reported] [facility] 09-13-2022 Functional status Ambulates;Up ad cammie [facility] Work Phone: 09-01-2022 Functional status Chair [facility] Work Phone: Mental Status Date Assessment Result Facility 02-03-2023 Cognitive function Level Of Cons ciousness Awake;Alert;Appropriate [facility] Work Phone: 09-13-2022 Cognitive function Touch/Shaking [facility] Work Phone: 09-11-2022 Cognitive function Appropriate;Cooperativ e [facility] Work Phone: 09-01-2022 Cognitive function Voice/Name [facility] Work Phone: Clinical Notes 09-13-2022 to 03-26-2025 Jose Clarke DO - 03/26/2025 9:40 AM EDTTelephone Encounter - Denisse Sellers MA - 02/12/2025 8:13 AM EDTTelephone Encounter - Denisse Sellers MA - 02/12/2025 8:13 AM EDT Note Date & Type Note Facility 03-26-2025 History of Presen t illness Narrative Images from the original note were not included. 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 Costa, [facility] [place] HAND CONTRACTURE RELEASE Right 08/2022 Dr. Forde PARTIAL HIP ARTHROPLASTY Left 08/2022 Dr. Forde TRANSURETHRAL RESECTION OF PROSTATE 07/2020 Dr Costa [5] Family History Problem Relation Name Age of Onset Colon cancer Mother age 82 Coronary artery disease Father [place], age 57 No Known Problems Sister Diabetes Sister Hypertension Brother Arthur Prostate cancer Brother Arthur 74 alive age 80 No Known Problems Brother Ramon in ECF, alive age 88 Prostate cancer Brother pastor pedraza 70 Dementia Brother pastor pedraza in ECF age 93 documented in this encounter [facility] 02-12-2025 Telephone encount er Note Recent Visits [...] recent labs completed in chart? N/A None [facility] 02-12-2025 Miscellaneous Notes Formattin g of this [...] Provider Dept 03/26/25 Appointment Jose Clarke DO [facility] Showing future appointments within next 90 days and meeting all other requirements Requested Prescriptions Pending Prescriptions Disp Refills atorvastatin (Lipitor) 80 MG tablet 100 tablet 2 Sig: Change to each AM after Breakfast chlorthalidone (Hygroton) 25 MG tablet 100 tablet 2 Sig: Change to one q AM Provider: Jose Clarek DO Verified pharmacy: yes Verified day(s) supplied: yes Verified refill(s) needed (previous prescription showing no refills in chart): Yes Have you received any controlled medications from any other provider? N/A Overdue for visit: No If yes - patient scheduled? N/A Most recent labs completed in chart? N/A None Name of caller: Brian Contact phone number: [phone] Relationship to Patient: patient Provider: Evy Practice: [facility] Chief Complaint/Reason for Call: Patient states he needs both medications chlorthalidone (Hygroton) 25 MG tablet ,atorvastatin (Lipitor) 80 MG tablet sent to [address] states they are saying there is no refills. Please advise patient when done needs as soon as possible. Best time of day caller can be reached: any Patient advised that office/PCP has 24-48 business hours to return their call: Yes documented in this encounter [facility] 02-11-2025 Telephone encount er Note Name of caller: Brian Contact phone number: [phone] Relationship to Patient: patient Provider: Evy Practice: [facility] Chief Complaint/Reason for Call: Patient states he needs both medications chlorthalidone (Hygroton) 25 MG tablet ,atorvastatin (Lipitor) 80 MG tablet sent to pharmacy [facility] [address] states they are saying there is no refills. Please advise patient when done needs as soon as possible. Best time of day caller can be reached: any Patient advised that office/PCP has 24-48 business hours to return their call: Yes [facility] 01-18-2025 Evaluation note Diagnosis Chronic kidney disease, stage 3a (HCC)- Primary Secondary hyperparathyroidism of renal origin (HCC) Secondary hyperparathyroidism (of renal origin) documented in this encounter [facility] [id number] History of Present illness Narrative* Jose Clarke, DO - 12/21/2024 8:00 AM EST Images from the original note were not included. 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 Forde PARTIAL HIP ARTHROPLASTY Left 08/2022 Dr. Forde TRANSURETHRAL RESECTION OF PROSTATE 07/2020 Dr Costa Family History Problem Relation Name Age of Onset Colon cancer Mother age 82 Coronary artery disease Father AL, age 57 No Known Problems Sister Diabetes [...] are intact. Rapid alternating movements normal. Normal wtdfqw-ln-cadg, tandemgait testing and Romberg testing. No Ramila's or Babinski. No carotid bruits. Heart is regular without ectopy or new murmurs. Lungs are clear. Abdomen withoutpain hepatosplenomegaly or masses. documented in this [facility]02-25-2025 [facility] Medical Records Department [address] [place] [address] Discharge Summary 12/18/24 1156 MR#: [id number] Acct: [id number] Name: BRIAN JOSHI Rep #: [id number] : 1940 84 From: Janiya Robert MD PCP: Dr. Jose Clarke DO Status:[place] Location: [place] [address] Providers Date of Admission: 12/17/24 Date of [...] statin dose unless contrai (more content not included)...[facility]01-21-2025 History of Present illness Narrative* Jose Clarke, - 11/13/2024 12:00 PM EST Images from the original note were not included. [facility] - [address] [facility] [address] Dept: [phone] Dept Loc: [phone] Patient was identified and seen today via [...] stated that they are currently in the [facility]. If the patient is a minor, [...] disease, with long-term current use of insulin ([facility]) Other orders - glimepiride (Amaryl) 2 MG [...] DO 11/13/2024 12:14 PM documented in this [facility]01-21-2025 Telephone encounter Note* Telephone Encounter - [...] right back up over 200. Please call [phone] R: Telephone Appointment scheduled 11/13/[address] [...] week Protocols used: Diabetes - Low Blood [id number] [facility] InstituteZlaogc55-30-1332 Miscellaneous Notes* Telephone Encounter - Paz Moffett [...] right back up over 200. Please call [phone] R: Telephone Appointment scheduled 11/13/[address] [...] week Protocols used: Diabetes - Low Blood [id number] documented in this [facility]01-16-2025 Telephone encounter Note* Telephone Encounter - Naa Kearney - 11/08/2024 3:45 PM EST Message released to patient as written. Patient's further questions if applicable: Were all questions from office addressed or relayed to the patient from encounter: Yes. I released the message to the patient. No questions at this time. Please advise [facility] InstituteZvuexz06-62-0005 Miscellaneous Notes* Telephone Encounter - Naa Kearney [...] Name of caller: Brian Contact phone number: [phone] Relationship to Patient: patient Provider: Dr. Clarke [...] return their call: Yes documented in this [facility]01-16-2025 Telephone encounter Note* Telephone Encounter - Madhuri Robison LPN - 11/08/2024 3:25 PM EST Placed call to patient to discuss provider direction. Message left on voicemail to return call. Please release message to patient: Yes. The patient should continue glimepiride as directed [address]Lgizxx44-18-5800 Note* Addendum Note - Jose Clarke DO - 11/08/2024 12:49 PM ESTAddended by: JOSE CLARKE on: 11/08/2024 12:49 PM Modules accepted: Orders [address]Uufbuk10-49-6511 Note* Addendum Note - Jose Clarke DO - 11/08/2024 12:49 PM ESTAddended by: JOSE CLARKE on: 11/08/2024 12:49 PM Modules accepted: Orders [address]Yfkioj33-55-0337 Note* Addendum Note - Jose Clarke DO - 11/08/2024 12:49 PM ESTAddended by: JOSE CLARKE on: 11/08/2024 12:49 PM Modules accepted: Orders [address]Wsritv86-41-7532 Miscellaneous Notes* Addendum Note - Jose Clarke [...] Name of caller: kenny Contact phone number: [phone] Relationship to Patient: patient Provider: evy Practice: [...] consents to. Copy of lab to his roof bolter Dr. Vines documented in this [facility]01-16-2025 Telephone encounter Note* Telephone Encounter - Linnette Carvalho - 11/08/2024 12:19 PM EST Name of caller: Brian Contact phone number: [phone] Relationship to Patient: patient Provider: Dr. Clarke [...] business hours to return their call: Yes [facility] InstituteWtmeor15-29-4679 Note* Addendum Note - Madhuri Robison LPN - 11/08/2024 11:43 AM ESTAddended by: MADHURI ROBISON on: 11/08/2024 11:43 AM Modules accepted: Orders [facility] InstituteQvncqj87-80-8213 Note* Addendum Note - Madhuri Robison LPN - 11/08/2024 11:43 AM ESTAddended by: MADHURI ROBISON on: 11/08/2024 11:43 AM Modules accepted: Orders [place] [id number] Note* Addendum Note - Madhuri Robison LPN - 11/08/2024 11:43 AM ESTAddended by: MADHURI ROBISON on: 11/08/2024 11:43 AM Modules accepted: Orders [place] [id number] Telephone encounter Note* Telephone Encounter - Madhuri Robison LPN - 11/08/2024 11:41 AM EST Talked to patient and relayed message and he will try those recommendations. Also patient is wanting to try the Pivot[employer] system as well. RX loaded Next ov 02/01/25 [facility] InstituteBgoasf09-77-8327 Telephone encounter Note* Telephone Encounter - Evie Calderón - 11/08/2024 9:03 AM EST Name of caller: kenny Contact phone number: [phone] Relationship to Patient: patient Provider: evy Practice: [...] business hours to return their call: Yes [facility] InstituteNtbajm31-19-3555 Telephone encounter Note* Telephone Encounter - Kiannaaugie Newton MA - 11/05/2024 10:19 AM EST Patient aware of results. Consent to increase his Jardiance to 25mg. Rx pended. Results faxed to Dr. Vines [facility] [id number] Miscellaneous Notes* Telephone Encounter - Kianna Newton [...] consents to. Copy of lab to his roof bolter Dr. Vines documented in this [facility]01-13-2025 Telephone encounter Note* Telephone Encounter - [...] consents to. Copy of lab to his roof bolter Dr. Vines [facility] InstituteOuyjyr98-07-7136 History of Present illness Narrative* Jose ClarkeDO - 10/30/2024 8:30 AM EST Images from the original note were not included. 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 documented in this [facility]01-07-2025 Instructions* Patient Instructions* Jose Clarke DO - 10/30/2024 8:30 AM EST Restart Gabapentin twice a day routinely for low back and leg pain documented in this [facility]11-27-2024 Telephone encounter Note* Telephone Encounter - Kianna Newton MA - 09/19/2024 1:48 PM EST Recent Visits Date Type Provider Dept 07/03/24 Office Visit Jose Payton DO Evy [facility] 02/07/24 Office Visit Jose Payton DO Evy [facility] 11/08/23 Office Visit Jose Payton HerileenaDO [facility] Showing recent visits within past 365 days and meeting all other requirements Future Appointments Date Type Provider Dept 10/30/24 Appointment Jose Payton HerileenaDO [facility] Showing future appointments within next [...] 31 (H) 07/03/2024 CREATININE 1.56 (H) 07/03/2024 [facility]11-27-2024 Miscellaneous Notes* Telephone Encounter - Kianna Newton MA - 09/19/2024 1:48 PM EST Recent Visits Date Type Provider Dept 07/03/24 Office Visit Jose Tata DO Evy [facility] 02/07/24 Office Visit Jose Payton HerileenaDO [facility] 11/08/23 Office Visit Jose ClarkeDO [facility] Showing recent visits within past 365 days and meeting all other requirements Future Appointments Date Type Provider Dept 10/30/24 Appointment Jose ClarkeDO [facility] Showing future appointments within next 90 days [...] CREATININE 1.56 (H) 07/03/2024 documented in this [facility]11-25-2024 Telephone encounter Note* Telephone Encounter - [...] prior to picking up the medication: Yes [facility] InstituteVrnlna57-16-6106 Miscellaneous Notes* Telephone Encounter - Adina Westbrook [...] up the medication: Yes documented in this [facility]11-19-2024 Telephone encounter Note* Telephone Encounter - [...] Most recent labs completed in chart? N/A [facility] InstituteSwfvic52-66-0736 Miscellaneous Notes* Telephone Encounter - Idalia Pierce [...] completed in chart? N/A documented in this [facility]09-19-2024 Telephone encounter Note* Telephone Encounter - Sangita Quesada MA - 07/12/2024 9:40 AM EDT Rx loaded [facility] InstituteNzsqgl52-40-3775 Miscellaneous Notes* Telephone Encounter - Sangita Quesada [...] (see medication tab): 12.14.2023 documented in this [facility]09-19-2024 Telephone encounter Note* Telephone Encounter - [...] of last refill (see medication tab): 12.14.2023 [facility] [id number] History of Present illness Narrative* Jose Payton Evy, DO - 07/03/2024 8:30 AM EDT Images from the original note were not included. [facility] [address] [place] [address] [address] [facility] [address] Dept: [phone] Dept Chief Complaint: Brian Joshi is an [...] Lipid panel 3. 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 Type 2 diabetes mellitus with chronic kidney disease, without long-term current use of insulin, unspecified CKD stage (HCC) Stable, continue glimepiride and low-carb meals 5. Encounter for subsequent annual wellness visit (AWV) in Medicare patient Exercise 150 minutes/week. Continue all other meds and obtain vaccinations as discussed documented in this [facility]09-10-2024 Instructions* Patient Instructions* Jose Clarke DO [...] Recommendations: A preventive eye exam by an medical specialist is recommended every 1-2 years to screen for glaucoma, cataracts, macular degeneration, and other eye disorders. A preventive dental visit is recommended every 6 months. Try to get at least 150 minutes of exercise per week or 10,000 steps per day on a pedometer. You need 1200-1500mg of calcium and 1624-9453 international units of vitamin D per day. [...] bicycle or a motorcycle documented in this encounterSTri[facility]ar[facility] HospitalUpgtlo90-73-4868 Telephone encounter Note* Telephone Encounter - Paulette Pike MA - 06/18/2024 8:14 AM EDT Recent Visits Date Type Provider Dept 02/07/24 Office Visit Jose Clarke DO [facility] 11/08/23 Office Visit Jose Clarke DO [facility] Showing recent visits within past 365 days and meeting all other requirements Future Appointments Date Type Provider Dept 07/03/24 Appointment Jose Clarke DO [facility] Showing future appointments within next 90 days [...] 06/17/2022 [facility] 111 02/07/2024 TRIG 93 06/17/2022 [facility] InstituteUybhdr99-50-3859 Miscellaneous Notes* Telephone Encounter - Paulette Pike [...] 02/07/2024 TRIG 93 06/17/2022 documented in this [facility]06-11-2024 Telephone encounter Note* Telephone Encounter - Kianna Newton MA - 04/03/2024 9:38 AM EDT Recent Visits Date Type Provider Dept 02/07/24 Office Visit Jose Payton Evy DO [facility] 11/08/23 Office Visit Jose Tata Evy DO [facility] 06/14/23 Office Visit Jose Clarke DO [facility] Showing recent visits within past 365 [...] 06/17/2022 CHOLESTEROLT 111 02/07/2024 TRIG 93 06/17/2022 [facility] [id number] Miscellaneous Notes* Telephone Encounter - Kianna Newton MA - 04/03/2024 9:38 AM EDT Recent Visits Date Type Provider Dept 02/07/24 Office Visit DO [facility] 11/08/23 Office Visit DO [facility] 06/14/23 Office Visit DO [facility] Showing recent visits within past 365 [...] Medication name: amLODIPine (Norvasc) 10 MG tablet [[id number]] Order Details Dose: 10 mg Route: Oral [...] Medication name: chlorthalidone (Hygroton) 25 MG tablet [[id number]] Order Details Dose: 25 mg Route: Oral [...] Medication name: hydrALAZINE (Apresoline) 25 MG tablet [[id number]] Order Details Dose, Route, Frequency: As Directed [...] Medication name: glimepiride (Amaryl) 2 MG tablet [[id number]] Order Details Dose: 2 mg Route: Oral [...] (5) Medication name: lisinopril 40 MG tablet [[id number]] Order Details Dose: 40 mg Route: Oral [...] (see medication tab): 12/14/2023 documented in this [facility]06-11-2024 Telephone encounter Note* Telephone Encounter - Shauna Rainey - 04/03/2024 9:12 AM EDT Ordering provider: Dr Clarke Date of last office visit: 02/07/2024 Date of next office visit: 05/22/2024 Updated/Validated preferred pharmacy: Yes Patient instructed to contact the pharmacy prior to picking up the medication: No (1) Medication name: amLODIPine (Norvasc) 10 MG tablet [[id number]] Order Details Dose: 10 mg Route: Oral [...] Medication name: chlorthalidone (Hygroton) 25 MG tablet [[id number]] Order Details Dose: 25 mg Route: Oral [...] Medication name: hydrALAZINE (Apresoline) 25 MG tablet [[id number]] Order Details Dose, Route, Frequency: As Directed [...] Medication name: glimepiride (Amaryl) 2 MG tablet [[id number]] Order Details Dose: 2 mg Route: Oral [...] (5) Medication name: lisinopril 40 MG tablet [[id number]] Order Details Dose: 40 mg Route: Oral [...] of last refill (see medication tab): 12/14/2023 [facility] InstituteZnwlue85-22-3078 Telephone encounter Note* Telephone Encounter - Anabela Bain MA - 02/28/2024 10:10 AM EDT Recent Visits Date Type Provider Dept 02/07/24 Office Visit Jose Clarke DO [facility] 11/08/23 Office Visit DO [facility] 06/14/23 Office Visit DO [facility] Showing recent visits within past 365 days and meeting all other requirements Future Appointments Date Type Provider Dept 05/22/24 Appointment Jose Clarke DO [facility] Showing future appointments within next 90 days and meeting all other requirements Requested Prescriptions Pending Prescriptions Disp Refills ezetimibe (Zetia) 10 MG tablet [Pharmacy Med Name: Ezetimibe 10 MG Oral Tablet] 100 tablet 2 Sig: TAKE 1 TABLET BY MOUTH DAILY Provider: Joes Clarke DO Verified pharmacy: yes Verified day(s) supplied: yes Verified refill(s) needed (previous prescription showing no refills in chart): No - unable to verify prescription refills in chart Have you received any controlled medications from any other provider? No Overdue for visit: No If yes - patient scheduled? Yes Most recent labs completed in chart? N/A [facility] [id number] Miscellaneous Notes* Telephone Encounter - Anabela Bain MA - 02/28/2024 10:10 AM EDT Recent Visits Date Type Provider Dept 02/07/24 Office Visit Jose Clarke DO [facility] 11/08/23 Office Visit Jose Clarke DO [facility] 06/14/23 Office Visit Jose Clarke DO [facility] Showing recent visits within past 365 days and meeting all other requirements Future Appointments Date Type Provider Dept 05/22/24 Appointment Jose Clarke DO [facility] Showing future appointments within next 90 days [...] completed in chart? N/A documented in this [facility]04-22-2024 Telephone encounter Note* Telephone Encounter - [...] prior to picking up the medication: Yes [place] [id number] Miscellaneous Notes* Telephone Encounter - Phyllis Haile [...] up the medication: Yes documented [place] [id number] Telephone encounter Note* Telephone Encounter - Phyllis Haile - 02/13/2024 3:04 PM EDT Message released to patient as written. yes Patient's further questions if applicable: no Were all questions from office addressed or relayed to the patient from encounter: Patient stated he will need new prescription with increased dose sent to [facility] for 90 days. [place] [id number] Miscellaneous Notes* Telephone Encounter - Phyllis Haile [...] DO Sent: 02/13/2024 8:34 AM EDT To: [facility] Clinical Diamond Saw Operator Chemistry stable but hemoglobin A1c above goal of less than 8. He may need back on Lantus insulin again. For now increase glimepiride to 2 mg twice daily. He is to call with glucose levels in 1 month. Checkup in 3 months as directed documented in this encounterSTriHealth Good Samaritan HospitalEfahyh25-93-2305 Telephone encounter Note* Telephone Encounter - Julieta Fleming LPN - 02/13/2024 2:27 PM EDT LM - called to relay results [facility] InstituteAnmepw50-48-4328 Telephone encounter Note* Telephone Encounter - Julieta Fleming LPN - 02/13/2024 2:26 PM EDT ----- Message from Kianna Newton MA sent at 02/13/2024 8:37 AM EDT ----- ----- Message ----- From: Jose Clarke DO Sent: 02/13/2024 8:34 AM EDT To: [facility] Clinical Diamond Saw Operator Chemistry stable but hemoglobin A1c above goal of less than 8. He may need back on Lantus insulin again. For now increase glimepiride to 2 mg twice daily. He is to call with glucose levels in 1 month. Checkup in 3 months as directed [place] [id number] Telephone encounter Note* Telephone Encounter - Yue Alcantara - 02/07/2024 3:51 PM EDT Orders pended for doctor signature [place] [id number] Miscellaneous Notes* Telephone Encounter - Yue Alcantara - 02/07/2024 3:51 PM EDT Orders pended for doctor signature documented in [place] [id number] History of Present illness Narrative* Jose Clarke DO - 02/07/2024 11:00 AM EDT Images from the original note were not included. [facility] [address] [place] [address] [address] [facility] [address] Visit type: Established Patient Reason for [...] right hand contracture release per [place]ist in [place] about a year and a half ago. [...] Mother age 82 Coronary artery disease Father [place], age 57 No Known Problems Sister Diabetes Sister Hypertension Brother Arthur Prostate cancer Brother Arthur 74 alive age 79 No Known Problems Brother Ramon in ECF, alive age 88 Prostate cancer Brother apstor pedraza 70 Dementia Brother pastor pedraza in [...] pyogenic granuloma or squamouscell. documented in this [facility]03-29-2024 Evaluation note* Diagnosis Chronic kidney disease, stage 3a (HCC)- Primary Secondary hyperparathyroidism of renal origin (HCC) Secondary hyperparathyroidism (of renal origin) documented in this encounter [facility] InstituteGegqmf58-74-3757 Telephone encounter Note* Telephone Encounter - Rob [...] prior to picking up the medication: N/A [facility] InstituteIgxbdd62-71-3174 Miscellaneous Notes* Telephone Encounter - Rob Coombs [...] up the medication: N/A documented in this [facility]02-21-2024 Telephone encounter Note* Telephone Encounter - [...] of last refill (see medication tab): 08/07/23 [id number] Miscellaneous Notes* Telephone Encounter - Davida Moffett [...] (see medication tab): 08/07/23 documented in this [facility]01-16-2024 History of Present illness Narrative* Jose Clarke, DO - 11/08/2023 8:30 AM EST Images from the original note were not included. 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 documented in this [facility]08-28-2023 Telephone encounter Note* Telephone Encounter - Madhuri Robison LPN - 06/20/2023 1:09 PM EDT Rx loaded Next ov 10/06/23 [id number] Miscellaneous Notes* Telephone Encounter - Madhuri Robison LPN - 06/20/2023 1:09 PM EDT Rx loaded Next ov 10/06/23 * Telephone Encounter - Tonia Lance - 06/20/2023 9:21 AM EDT Ordering provider: Jose Clarke Date of last office visit: 06/14/23 Date of next office visit: 10/06/23 Updated/Validated preferred pharmacy: Yes [facility] [place], [place] Patient instructed to contact the pharmacy [...] (see medication tab): 02/14/23 documented in this [place] [id number] Telephone encounter Note* Telephone Encounter - Madhuri Robison LPN - 06/20/2023 9:29 AM EDT Rx loaded For mail pharmacy Next ov 10/06/23 [place] [id number] Miscellaneous Notes* Telephone Encounter - Madhuri Robison LPN - 06/20/2023 9:29 AM EDT Rx loaded For mail pharmacy Next ov 10/06/23 documented in this [address]28-2023 Telephone encounter Note* Telephone Encounter - Madhuri Robison LPN - 06/20/2023 9:28 AM EDT Rx loaded For short fill to local pharmacy [id number] Miscellaneous Notes* Telephone Encounter - Madhuri Robison [...] Emergency Supply of 15 tablets. [facility] [place] for a 90 day supply Patient instructed to contact the pharmacy prior to picking up the medication: N/A (1) Medication name: glimepiride (Amaryl) Medication dosage: 1 mg (Miligrams Monthly quantity needed: 16 for [facility] 60 for [facility] [place] How many day supply requestin days for [...] (see medication tab): 02/16/23 documented in this [facility]08-28-2023 Telephone encounter Note* Telephone Encounter - Tonia Lance - 06/20/2023 9:21 AM EDT Ordering provider: Jose Clarke Date of last office visit: 06/14/23 Date of next office visit: 10/06/23 Updated/Validated preferred pharmacy: Yes [facility] [place], [place] Patient instructed to contact the pharmacy [...] of last refill (see medication tab): 02/14/23 [id number] Telephone encounter Note* Telephone Encounter - Tonia [...] next office visit: 10/06/23 Updated/Validated preferred pharmacy: [facility] for Emergency Supply of 15 tablets. [facility] [place], [place] for a 90 day supply Patient instructed to contact the pharmacy prior to picking up the medication: N/A (1) Medication name: glimepiride (Amaryl) Medication dosage: 1 mg (Miligrams Monthly quantity needed: 16 for [facility] 60 for [facility] [place] How many day supply requestin days for [...] of last refill (see medication tab): 02/16/23 [place] [address]-27-2023 Telephone encounter Note* Telephone Encounter - Paulette [...] appt - 02/14/2023 Next appt - 06/14/2023 [id number] Miscellaneous Notes* Telephone Encounter - Paulette Pike [...] Next appt - 06/14/2023 documented in this [facility]04-24-2023 History of Present illness Narrative* Jose Clarke DO - 02/14/2023 12:30 PM EDT Images from the original note were not included. [facility] [address] [facility] [address] Visit type: Established Patient Reason for Visit: ER Follow-up (For dehydration) Assessment / Plan: Brian was seen today for er follow-up. Diagnoses and all orders for this visit: Acquired left foot drop (Primary) Comments: New onset, continue PT. He defers CT imaging. 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 documented in this [facility]04-24-2023 Instructions* Patient Instructions* Jose Clarke DO - 02/14/2023 12:30 PM EDT Obtain left ankle-foot orthotic from physical therapist documented in this [facility]04-05-2023 Evaluation note* Diagnosis Chronic kidney disease, stage 3a (HCC)- Primary Secondary hyperparathyroidism of renal origin (HCC) Secondary hyperparathyroidism (of renal origin) documented in this encounter [facility] [id number] Telephone encounter Note* Telephone Encounter - Catalina Llanes RN - 12/06/2022 10:33 AM EST Rx loaded [facility] [id number] Miscellaneous Notes* Telephone Encounter - Catalina Llanes RN - 12/06/2022 10:33 AM EST Rx loaded * Telephone Encounter - Caroline Olivas - 12/06/2022 9:51 AM EST Name of caller: Brian Contact phone number: [phone] Relationship to Patient: patient Provider: Dr. Clarke [facility] Chief Complaint/Reason for Call: Pt is requesting [...] return their call: N/A [id number] Telephone encounter Note* Telephone Encounter - Caroline Olivas - 12/06/2022 9:51 AM EST Name of caller: Brian Contact phone number: [phone] Relationship to Patient: patient Provider: Dr. Clarke [...] business hours to return their call: N/A [facility]11-21-2022 Hospital Discharge instructions Additional Instructions Discharge home with family 09/13/2022, [facility] PT/OT/SN.[facility] Work Phone: Evaluation note* Diagnosis Pneumonia of right lower lobe due to infectious organism- Primary Septicemia (HCC) Unspecified septicemia Renal insufficiency Unspecified disorder of kidney and ureter Type 2 diabetes mellitus with other specified complication, unspecified whether retirement insulin use (HCC) documented in this encounter [facility] Work Phone: Evaluation note* Diagnosis Acute hip pain, left Acute left-sided low back pain with left-sided sciatica documented in this encounter [facility] Work Phone: Evaluation noteNo assessment information available [facility] Work Phone: Evaluation note* Diagnosis Onset Date Resolution Status Closed fracture of left hip acute Fall acute Status post placement of cardiac pacemaker chronic [facility] Work Phone: Evaluation note* Diagnosis Onset Date Resolution Status Bladder neck contracture acu te Closed fracture of left hip acute Fall acute 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 Chronic kidney disease, stage 3b acute Closed fracture of left hip acute Coronary artery disease acut e Debility acute Diabetes mellitus acute Hyperlipidemia acute HTN (hypertension) chronic [facility] Work Phone: Evaluation note* Diagnosis Acquired left foot drop- Primary 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 Stage 3a chronic [...] Hypercholesterolemia with hypertriglyceridemia 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 Chronic left-sided lumbar [...] Hypercholesterolemia with hypertriglyceridemia 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 Type 2 diabetes [...] kidney disease (HCC) 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 Essential hypertension Unspecified [...] kidney disease (HCC) 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 Hypercholesterolemia with hypertriglyceridemia Right thalamic stroke (HCC) Hypoglycemic event due to diabetes (HCC) Other constipation documented in this encounter [facility] HealthEvaluation note* Diagnosis Type 2 diabetes mellitus with stage 3b chronic kidney disease, with long-term current use of insulin (HCC)- Primary 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 * Pneumonia (Lithuanian) documented in this [facility] Work Phone: Hospital Discharge instructions Additional Instructions Plenty of fluids and rest. Hold the medication furosemide. Follow-up with either your primary care physician or Dr. Pastor Vines for further evaluation.[facility] Work Phone: Reason for referral (narrative)* Consultation (Routine) - Pending Review Specialty Diagnoses / Procedures Referred By Dioni hill Referred To Contact Orthodontics Diagnoses Skin lesion of hand Jose Clarke DO [address] [place] [address] Jaziel Forde DO [address] [facility] [address] [place] [address] Referral ID Status Reason Start Date Expiration Date Visits Requested Visits Authorized [id number] Pending Review Specialty Services Required 02/07/2024 02/06/2025 1 1 [facility] Summary Purpose Family History No Family History Records Found Relationship Condition Age at Onset Recorded Date/T hiwot mother Malignant neoplasm of colon Unknown father Cardiac disease Unknown Hypertension Unknown Myocardial infarction Unknown Coronary artery disease Unknown Advance Directives No Advanced Directives Records FoundDocuments on File Type Date Recorded 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 Advance Directives and Living Will Power of Extracting Machine Operator Latest Code Status on File Code Status Date Activated Date Inactivated Comments Full Code 12/23/2017 11:02 AM 12/24/2017 6:01 PM Full Code 12/23/2017 7:59 AM 12/23/2017 11:02 AM Documents on File Type Date Recorded 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 ACP-Advance Directive ACP-Power of Extracting Machine Operator Advance Directive Response Recorded Date/ Time Living Will Yes April 23, 2021 2 :58pm Power of Extracting Machine Operator Yes April 23, 2021 2:58pm Advance Directive Response Recorded Date/ Time Living Will Yes August 28 4:38pm Power of Extracting Machine Operator Yes August 28, 2022 4:38pm Name of Medical Power of Extracting Machine Operator DAUGHTER August 28, 2022 4:38pm Advance Directive Response Recorded Date/ Time Name of Medical Power of Extracting Machine Operator Paz Fonseca August 28, 2022 7:21pm Name of Medical Power of Extracting Machine Operator Paz Fonseca, daughter September 03, 2022 10:23am Living Will Yes September 03, 10:23am Power of Extracting Machine Operator Yes September 03, 2022 10:23am Documents on File Type Date Recorded 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 DNR (Do Not Resuscitate) 12/22/2015 Advance Directive Response Recorded Date/ Time Living Will Yes February 03, 2023 10:49am Power of Extracting Machine Operator Yes February 03 10:49am Name of Medical Power of Extracting Machine Operator PAZ FONSECA February 03, 2023 10:49am Documents on File Type Date Recorded 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 DNR (Do Not Resuscitate) 12/22/2015 Chief Complaint Chief Complaint Description Start Date left thumb finger Preliminary chief co mplaint data, not yet signed by the author as of Instructions Instruction Description Start Date CompletedPlease follow-up [facility] Primary Care Physician or Install And Repair Technician for treatment or adjustment of medication regarding [...] section and content) DATE CREATED AUTHOR 08/08/2018 [facility] DATE CREATED AUTHOR AUTHOR'S ORGANIZ ATION 12/12/2018 [facility] [employer] DATE CREATED AUTHOR AUTHOR'S ORGANIZ ATION 03/12/2022 [facility] [employer] DATE CREATED AUTHOR AUTHOR'S ORGANIZ ATION 01/11/2025 [facility] DATE CREATED AUTHOR AUTHOR'S ORGANIZ ATION 04/09/2025 [facility] Reason for Visit (unrecogniz ed section [...] [id number] (New Bag - Prov ider: lCeo Coombs, RN)1157 (Stopped - Provider: Cleo Coombs, RN) Care Teams (unrecognized sec tion and content) Unix Consultant Relationship Specialty Start Date End Date Jose Clarke DO [address] [place] [id number] PCP - General 03/27/15 Unix Consultant Relationship Specialty Start Date End Date Jose Clarke DO [address] [place] [address] PCP - General 10/24/18 Team Status: Active Member Role Status Dates Dr. Jose Clarke , Family Provider Active Dr. Jose Clarke , Primary Care Provider Active Team Status: Inactive Member Role Status Dates Dr. Jose Clarke , Primary Care Provider Active Dr. Ayaan Quesada MD Emergency Provider Active Unix Consultant Relationship Specialty Start Date End Date Jose Clarke, DO [address] [place] [address] PCP - General 10/24/18 Unix Consultant Relationship Specialty Start Date End Date Jose Clarke DO [address] [place] [address] PCP - General 10/24/18 Unix Consultant Relationship Specialty Start Date End Date Jose Clarke DO [address] [place] [address] PCP - General 10/24/18 Unix Consultant Relationship Specialty Start Date End Date Jose Clarke DO [address] [place] [address] PCP - General 10/24/18 Unix Consultant Relationship Specialty Start Date End Date oJse Clarke DO [address] [place] [address] PCP - General 10/24/18 Unix Consultant Relationship Specialty Start Date End Date Jose Clarke DO [address] [place] [address] PCP - General 10/24/18 Unix Consultant Relationship Specialty Start Date End Date Jose Clarke DO [address] [place] [address] [address] [place] [address] PCP - General 10/24/18 Unix Consultant Relationship Specialty Start Date End Date Evy Jose Payton, DO [address] [place] [address] PCP - General 10/24/18 Unix Consultant Relationship Specialty Start Date End Date Evy Jose Payton, DO [address] [place] [address] PCP - General 10/24/18 Unix Consultant Relationship Specialty Start Date End Date Evy Jose Payton, DO [address] [place] [address] PCP - General 10/24/18 Unix Consultant Relationship Specialty Start Date End Date Evy Jose Payton, DO [address] [place] [address] PCP - General 10/24/18 Unix Consultant Relationship Specialty Start Date End Date Evy Jose Payton, DO [address] [place] [address] PCP - General 10/24/18 Unix Consultant Relationship Specialty Start Date End Date Evy Jose Payton, DO [address] [place] [address] PCP - General 10/24/18 Unix Consultant Relationship Specialty Start Date End Date Evy Jose Payton, DO [address] [place] [address] PCP - General 10/24/18 Unix Consultant Relationship Specialty Start Date End Date Jose Clarke, DO [address] [place] [address] PCP - General 10/24/18 Unix Consultant Relationship Specialty Start Date End Date Jose Clarke, DO [address] [place] [address] PCP - General 10/24/18 Unix Consultant Relationship Specialty Start Date End Date Jose Clarke, DO [address] [place] [address] PCP - General 10/24/18 Unix Consultant Relationship Specialty Start Date End Date Jose Clarke, DO [address] [place] [address] PCP - General 10/24/18 Unix Consultant Relationship Specialty Start Date End Date Jose Clarke, DO [address] [place] [address] PCP - General 10/24/18 Unix Consultant Relationship Specialty Start Date End Date Jose Clarke, DO [address] [place] [address] PCP - General 10/24/18 Unix Consultant Relationship Specialty Start Date End Date Jose Clarke, DO [address] [place] [address] PCP - General 10/24/18 Unix Consultant Relationship Specialty Start Date End Date Jose Clarke, DO [address] [place] [address] PCP - General 10/24/18 Unix Consultant Relationship Specialty Start Date End Date EvyJose, DO [address] [place] [address] PCP - General 10/24/18 Unix Consultant Relationship Specialty Start Date End Date Evy Jose Payton, DO [address] [place] [address] PCP - General 10/24/18 Unix Consultant Relationship Specialty Start Date End Date Jose Clarke Tata, DO [address] [place] [id number] PCP - General 10/24/18 Unix Consultant Relationship Specialty Start Date End Date Jose Clarke Tata, DO [address] [place] [address] PCP - General 10/24/18 Unix Consultant Relationship Specialty Start Date End Date Evy Jose Payton, DO [address] [place] [address] PCP - General 10/24/18 Unix Consultant Relationship Specialty Start Date End Date Jose Clarke Tata, DO [address] [place] [address] PCP - General 10/24/18 Unix Consultant Relationship Specialty Start Date End Date Jose Clarke Tata, DO [address] [place] [address] PCP - General 10/24/18 Unix Consultant Relationship Specialty Start Date End Date Jose Clarke DO [address] [facility] [address] [place] [address] PCP - General 10/24/18 Goals [...] BE BASED ON THE PRIMARY CLINICAL RECORDS. [employer] [facility]. provides no warranty or guarantee of the accuracy or completeness of information in this document.
[2025-04-28] MEDS: 0.45% Normal Saline 1,000 ML 75 ML IV (15:21)
[2025-04-28] MEDS: 0.9% Saline Lock 10 ML Syringe IV (15:21)
[2025-04-28] MEDS: Heparin Injection (Vial) 5,000 UNIT/ML VIAL 5000 UNIT SC ×2 (15:21→22:07)
--- OUTSIDE RECORDS SUMMARY | 2025-04-28 16:38 | XMS RPT_ITS | CCD ---
Author Organization [facility] CliniSypr Care Team Providers Care Manager Transfer Name Role Phone Osorio Acharya MD Unavailable Unavailable Osorio Acharya MD Unavailable Unavailable Eh Morton MD Unavailable [phone] KELSIE SALGUERO Attending Unavailable UNKNOWN, PROVIDER Referring Unavailable Jose Clarke Primary Care Unavailable KELSIE SALGUERO Attending Unavailable [...] Other Provider Dr. Rachele Wilson Attending Provider [phone] Rachele Wilson Other Provider Jose Clarke DO Primary Care Provider [phone] Petrilla DO, Jose Primary Care Provider Brianniteshevy GRADY, [facility] Primary Care Provider Jopperi, Harvey Attending Unavailable Petrilla, Jose Primary Care Unavailable Janiya Robert Attending Unavailable Petrilla, Jose Primary Care Unavailable Jopperi, Harvey Admitting Unavailable Jopperi, Harvey Consulting Unavailable Robert, Janiya Consulting Unavailable Jopperi, Harvey Consulting Unavailable Robert, Janiya Attending Unavailable Petrilla, Jose Primary Care Unavailable Jopperi, Harvey Admitting Unavailable RADHA TORRES Attending Unavailable PETRILLA, JOSE Primary Care Unavailable PETRILLA, JOSE Primary Care Unavailable PETRILLA, JOSE Attending Unavailable PETRILLA, JOSE Primary Care Unavailable PETRILLA, JOSE Attending Unavailable PETRILLA, JOSE Primary Care Unavailable PETRILLA, JOSE Attending Unavailable PETRILLA, JOSE Primary Care Unavailable PETRILLA, JOSE Attending Unavailable PETRILLA, JOSE Primary Care Unavailable PETRILLA, JOSE Attending Unavailable PETRILLA, JOSE Primary Care Unavailable Petrilla , Dr. Garcia Primary Care Provider Bert GUTIERREZ, Dr. Nair Emergency Provider [phone] Oleksandr GUTIERREZ, Dr. Goins Other Provider Jorge GUTIERREZ, Dr. Jauregui Admit Provider [phone] Jorge GUTIERREZ, Dr. Jauregui Attending Provider Medications Current Medications Medication Drug Class(es) Dates Sig (Normalized) Sig (Original) acetaminophen 500 mg oral tablet (3 sources) Start: 09-08-2022 take 2 tablets by mouth every eight hours Acetaminophen 500 mg Tablet Active 1000 mg PO EVERY 8 HOURS 0 0 September 08, 2022 1:00am pain Start: 09-08-2022 take 1000 mg by mout h every eight hours Acetaminophen Active 1000 MG PO EVERY 8 HOURS 0 September 08, 2022 1:00am amLODIPine 10 mg oral tablet (20 sources) Dihydropyridine Calcium Channel Leslie Start: 08-24-2022 End: 09-19-2024 take 1 tablet by mouth once daily amLODIPine (Norvasc) 10 MG tablet TAKE 1 TABLET BY MOUTH DAILY 100 tablet 2 09/19/2024 Active Start: 02-18-2022 take 1 tablet by [...] MG TABS one tablet daily AMLODIPINE BESYLATE [id number] Eh Morton MD Start: 12-16-2016 End: 09-08-2022 take 2 tablets by mouth once daily Amlodipine 5 MG tablet Discontinued 10 mg PO DAILY December 16, 2016 1:00am September 08, 2022 8:26pm Blood Pressure Start: 12-16-2016 End: 09-08-2022 take 10 mg [...] daily. 12/21/2024 12/21/2025 Active Start: 04-23-2021 take 1 tablet by chris th once daily Aspirin 81 mg Tablet Active 81 mg PO DAILY April 23, 2021 12:00am Heart Start: 06-13-2020 End: 08-13-2020 take 1 tablet by mouth five times daily Aspirin 81 MG tablet,chewable Discontinued 81 mg PO DAILY June 13, 2020 12:00am August 13, 2020 12:20pm will stop 5 days prior Start: 11-23-2018 ADULT ASPIRIN REGIMEN 81 MG TBEC one tablet daily ASPIRIN [id number] Eh Morton MD atorvastatin 80 mg oral tablet (20 sources) HMG-CoA Reductase Inhibitor Start: 12-21-2024 End: 02-12-2025 atorvastatin (Lipitor) 80 MG tablet Change to each AM after Breakfast 100 tablet 2 02/12/2025 Active Start: 08-24-2022 End: 12-21-2024 take 1 tablet by mouth once daily atorvastatin (Lipitor) 80 MG tablet TAKE 1 TABLET BY MOUTH DAILY 100 tablet 2 09/19/2024 12/21/2024 Discontinued (Dose adjustment) Start: 02-18-2022 take 1 tablet by chris [...] MG TABS one tablet daily ATORVASTATIN CALCIUM [id number] Eh Morton MD Start: 12-16-2016 End: 08-28-2022 take 4 tablets by mouth at bedtime Atorvastatin 20 MG tablet Discontinued 80 mg PO AT BEDTIME December 16, 2016 1:00am August 28, 2022 6:57pm Cholesterol Start: 12-16-2016 End: 08-28-2022 take 80 mg by mouth at bedtime Atorvastatin Discontinu ed 80 MG PO AT BEDTIME December 16, 2016 1:00am August 28, 2022 6:57pm chlorthalidone 25 mg oral tablet (20 sources) Thiazide-like Diuretic Start: 03-18-2023 End: 02-12-2025 take 1 tablet by mouth once daily Chlorthalidone 25 mg tablet Active 25 mg PO DAILY December 17, 2024 1:00am Start: 12-16-2016 take 40 mg by mouth once daily Chlorthalidone Active 40 MG PO DAILY December 16, 2016 12:59pm Start: 12-16-2016 End: 12-06-2022 Chlorthalidone 25 MG tablet Discontinued 25 mg PO AT BEDTIME December 16, 2016 1:00am September 01, 2022 3:23pm WATER PILL ciclopirox 7.7 mg/ml topical cream (2 sources) Start: 03-26-2025 ciclopirox (Lo prox) 0.77 % cream Apply topically 2 times daily. 30 g 1 03/26/2025 Active Start: 01-03-2019 ciclopirox (PE NLAC) 8 % solution Apply topically nightly. 1 Bottle 2 01/03/2019 Active Continuous Blood Gluc Receiv er (FREESTYLE JOSE 14 DAY READER) NAIF (1 source) Continuous Blood Gluc Paint Roller Winder (FREESTYLE JOSE 14 DAY READER) NAIF by Does not apply route 0 Active Continuous Blood Gluc Receiv er (FREESTYLE JOSE READER) NAIF (1 source) Start: 12-22-2021 Continuous Blo od Gluc Paint Roller Winder (FREESTYLE JOSE READER) NAIF 1 each by [...] not apply route 0 Active Continuous Glucose Paint Roller Winder (FreeStyle Jose [place]) device (10 sources) Start: 11-08-2024 Continuous Glu cose Paint Roller Winder (FreeStyle [place]) device 1 each 2 times daily as needed (check glucose levels). E11.9 1 each 11/08/2024 Active Continuous Glucose Sensor (FreeStyle Jose 3 Sensor) misc (10 sources) Start: 11-08-2024 Continuous Glu cose Sensor (FreeStyle Jose 3 Sensor) misc 1 each every 14 (fourteen) days. E11.9 2 each 11 11/08/2024 Active ezetimibe 10 mg oral tablet (20 sources) Dietary Cholesterol Absorption Inhibitor Start: 12-17-2024 take 1 tablet by mouth once daily Ezetimibe 10 mg tablet Active 10 mg PO DAILY December 17, 2024 1:00am cholesterol Start: 06-22-2023 End: 09-19-2024 take 1 tablet by mouth once daily ezetimibe (Zetia) 10 MG tablet TAKE 1 TABLET BY MOUTH DAILY 100 tablet 2 09/19/2024 Active glimepiride 1 mg oral tablet (20 sources) Sulfonylurea Start: 12-21-2024 glimepiride (A maryl) 1 MG tablet Decrease to 1 mg [...] Start: 01-22-2022 take 1 tablet by chris once daily before breakfast glimepiride (AMARYL) 1 MG tablet Take 1 tablet by mouth every morning (before breakfast) 90 tablet 1 01/22/2022 Active Start: 04-23-2021 take 0.5 mg by mouth once ross y Glimepiride Active 0.5 MG PO DAILY April 23, 2021 3:28pm Start: 04-23-2021 take 2 tablets by mo [facility] twice daily Glimepiride 1 mg tablet Active 2 mg PO TWICE A DAY April 23, 2021 12:00am Diabetes Start: 04-23-2021 take 0.5 mg by mouth [...] 50mg tablet three times daily HYDRALAZINE HCL [id number] Eh Morton MD Start: 11-23-2018 HYDRALAZINE HC L 50 MG TABS take one tablet with 25mg tablet three times daily HYDRALAZINE HCL [id number] Eh Morton MD Start: 12-16-2016 Hydralazine 10 0 MG tablet Active 25 mg PO THREE TIMES A DAY December 16, 2016 1:00am BP Start: 12-16-2016 take 25 mg by mouth three times daily Hydralazine Active 25 MG PO THREE TIMES A DAY December 16, 2016 1:00am 3 ml insulin glargine 100 unt/ml pen injector (14 sources) Insulin Analog Start: 12-17-2024 Insulin Glargi ne (Lantus Solostar U-100 Insulin) 100 unit/mL (3 mL) insulin pen Active 10 U SC DAILY December 17, 2024 1:00am diabetes Start: 11-08-2024 End: 02-27-2025 inject 10 [IU] [...] 18 units in the evening INSULIN GLARGINE [id number] Eh Morton MD lisinopril 40 mg oral tablet (20 sources) Angiotensin Converting Enzyme Inhibitor Start: 06-13-2020 End: 09-19-2024 take 1 tablet by mouth once daily lisinopril 40 MG tablet TAKE 1 TABLET BY MOUTH DAILY 100 tablet 2 09/19/2024 Active Start: 02-14-2020 take 1 tablet by chris th once daily lisinopril (PRINIVIL;ZESTRIL) 40 MG tablet Take 1 tablet by mouth daily 90 tablet 0 02/14/2020 Active Start: 11-13-2019 take 1 tablet by chris th once daily lisinopril (PRINIVIL;ZESTRIL) 40 MG tablet Take 1 tablet by mouth daily 90 tablet 0 11/13/2019 Active Start: 11-23-2018 LISINOPRIL 40 MG TABS one tablet daily LISINOPRIL [id number] Eh Morton MD melatonin 10 mg oral capsule (4 sources) Start: 10-30-2024 take 1 capsule by mouth once daily Melatonin 10 MG capsule Take 10 mg by mouth Nightly. 10/30/2024 Active nitroglycerin 0.3 mg sublingual tablet (20 sources) Nitrate Vasodilator Start: 02-02-2018 nitroglycerin (Nitrostat) 0.[address] 0.3 mg under the tongue. 02/02/2018 Active tamsulosin hydrochloride 0.4 mg oral capsule (4 sources) alpha-Adrenergic Leslie Start: 08-15-2020 take 1 capsule by mouth once daily tamsulosin (FLOMAX) 0.4 MG capsule Take 1 capsule by mouth daily 90 capsule 1 08/15/2020 Active Start: 05-15-2020 take 1 capsule by mo uth once daily tamsulosin (FLOMAX) 0.4 MG capsule Take 1 capsule by mouth daily 90 capsule 1 05/15/2020 Active Start: 11-13-2019 take 1 capsule by mo ut once daily tamsulosin (FLOMAX) 0.4 MG capsule Take 1 capsule by mouth daily 90 capsule 0 11/13/2019 Active Start: 11-23-2018 TAMSULOSIN HCL 0.4 MG CAPS one tablet daily TAMSULOSIN HCL [id number] Eh Morton MD triamcinolone acetonide 0.001 mg/mg [...] to affected area twice daily TRIAMCINOLONE ACETONIDE [id number] Eh Morton MD Start: 11-06-2018 triamcinolone (KENALOG) [...] IVPB (add-vantage) cefdinir 300 mg oral capsule (6 sources) Cephalosporin Antibacterial Start: 09-01-2022 End: 09-08-2022 take 1 capsule by mouth twice daily Cefdinir 300 mg capsule Discontinued 300 mg PO TWICE A DAY September 01, 2022 7:42pm September 08, 2022 8:26pm antibiotic cefTRIAXone (ROCEPHIN) 1000 mg IVPB in NS 50ml minibag (1 source) Start: 04-23-2021 End: 04-23-2021 cefTRIAXone (ROCEPHIN) 1000 mg IVPB in NS 50ml minibag docusate sodium 50 mg / sennosides, [facility] 8.6 mg oral tablet (9 sources) Start: 09-01-2022 End: 12-17-2024 Sennosides-Docusat e Sodium (Stool Softener-Stimulant Laxat) 8.6-50 mg Tablet Discontinued 2 {tbl} PO TWICE A DAY 120 30 0 September 08, 2022 1:00am December 17, 2024 1:28pm empagliflozin 25 mg oral tablet (14 sources) [...] ml enoxaparin sodium 100 mg/ml prefilled syringe (6 sources) Low Molecular Weight Heparin Start: 09-01-2022 End: 09-08-2022 Enoxaparin 40 mg/0.4 mL syringe Discontinued 40 mg SC DAILY September 01, 2022 7:42pm September 08, 2022 8:26pm blood thinner gabapentin 300 mg oral capsule (20 sources) [...] Discontinued ondansetron 4 mg disintegrating oral tablet (5 sources) Serotonin-3 Receptor Antagonist Start: 12-17-2024 End: 03-26-2025 take 1 tablet by mouth every eight hours as needed for nausea ondansetron ODT (Zofran-ODT) 4 MG disintegrating tablet Take 4 mg by mouth every 8 hours as needed for nausea. 12/17/2024 03/26/2025 Discontinued (Therapy completed) Start: 12-17-2024 take 1 tablet by chris th every six hours as needed for nausea Ondansetron 4 mg tablet,disintegrating Active 4 mg PO EVERY 6 HOURS NEEDED as needed for Nausea 15 0 December 17, 2024 1:00am oxyCODONE hydrochloride 5 mg oral tablet (6 sources) Opioid Agonist Start: 09-01-2022 End: 12-17-2024 take 2.5-5 mg by mouth every four hours as needed for pain Oxycodone 5 mg Tablet Discontinued 2.5 - 5 mg PO EVERY 4 HOURS NEEDED as needed for Pain Score 4-10 18 3 0 September 08, 2022 December 17, 2024 1:28pm Closed fracture of left hip polyethylene glycol 3350 02874 mg powder for oral solution (3 sources) Osmotic Laxative End: 02-14-2023 polyethylene glycol, PEG, 3350 (Glycolax) 17 GM/SCOOP powder Take by mouth. 0 02/14/2023 Discontinued (Therapy completed) microencapsulated potassium chloride 20 meq extended release oral tablet (6 sources) Start: 09-08-2022 End: 12-17-2024 Potassium Chloride (Klor-Con M20) 20 mEq Tablet,Er Particles/Crystals Discontinued 20 meq PO DAILY WITH MEALS 30 30 0 September 08, 2022 1:00am December 17, 2024 1:28pm sennosides, penitentiary 8.6 mg oral tablet (2 sources) Start: 11-23-2018 SENNA 8.6 MG TABS one tablet daily SENNOSIDES [id number] Eh Morton MD 50 ml sodium chloride 9 mg/ml injection (2 sources) Start: 04-23-2021 End: 04-23-2021 0.9 % sodium chloride bolus Problems Active Problems Problem Classification Problem Date Documented Date Episodic/Chronic Acute and unspecified renal failure (20 sources) Chronic renal failure; Translations: [Chronic renal failure, stage 3 (moderate)] Onset: 4 Resolved: 4 12-23-2017 Chronic Acute and unspecified renal failure (5 sources) Acute renal failure syndrome; Translations: [Acute [...] 4 Conditions associated with dizziness or vertigo (4 sources) Vertigo; Translations: [Dizziness and giddiness] Onset: 5 12-21-2024 Episodic Conditions associated with dizziness or vertigo (2 sources) Conditions associated with dizziness or vertigo Onset: 5 Conduction disorders (20 sources) Presence of cardiac pacemaker; Translations: [Cardiac pacemaker in situ] Onset: 8 12-25-2017 Chronic Coronary atherosclerosis and other heart disease (20 sources) Atherosclerotic heart disease of [place] coronary artery without angina pectoris; Translations: [Coronary [...] Onset: 8 Chronic Diabetes mellitus without complication (16 sources) Type 2 diabetes mellitus without complications; Translations: [Type 2 diabetes mellitus] Onset: 9 12-23-2017 Chronic Diabetes mellitus without complication (2 sources) Acute hyperglycemia; Translations: [Hyperglycemia, unspecified] 02-03-2023 Episodic Disorders of lipid metabolism (20 sources) Mixed hyperlipidemia; Translations: [Mixed hypercholesterolemia and hypertriglyceridemia] Onset: 8 12-23-2017 Chronic E Codes: Fall (7 sources) Fall; Translations: [Unspecified fall, initial encounter] Episodic Essential hypertension (20 sources) Essential (primary) hypertension; Translations: [Essential hypertension] Onset: 9 02-06-2021 Chronic External cause codes: Machinery (2 sources) Contact with powered woodworking and forming machines, initial encounter; Translations: [Contact w powered woodworking and forming machines, init] Onset: 9 Fracture of neck of femur (hip) (7 sources) Closed fracture of hip; Translations: [Fracture of unspecified part of neck of left femur, initial encounter for closed fracture] Episodic Fracture of neck of femur (hip) (2 sources) Closed fracture of neck of femur; Translations: [Fracture of unspecified part of neck of right femur, initial encounter for closed fracture] 04-28-2025 Episodic Genitourinary symptoms and ill-defined conditions (5 sources) Acute retention of urine ; Translations: [Other retention of urine] 06-14-2020 Episodic Hyperplasia of prostate (20 sources) Benign prostatic hyperplasia without lower urinary tract symptoms; Translations: [Benign prostatic hyperplasia] Onset: 8 12-23-2017 Chronic Inflammatory conditions of male genital organs (3 sources) Balanitis; Translations: [Balanitis] Onset: 5 03-26-2025 Chronic Malaise and fatigue (5 sources) Asthenia; Translations: [Other malaise] Episodic Nausea and vomiting (2 sources) Vomiting, unspecified; Translations: [Nausea] Onset: 5 12-26-2024 Episodic Open wounds of extremities (3 sources) Traumatic amputation of thumb; 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, initial encounter] Onset: 9 11-23-2018 Chronic Other aftercare (2 sources) 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; Translations: [retirement (current) use of aspirin] Onset: 9 Episodic Other circulatory disease (1 source) Personal history of transient ischemic attack (TIA), and cerebral infarction without residual deficits; Translations: [Personal history of transient ischemic attack (TIA), and cerebral infarction without residual deficits] Onset: 5 Episodic Other circulatory disease (2 sources) History of cerebrovascular accident; Translations: [Personal history of transient ischemic attack (TIA), and cerebral infarction without residual deficits] 12-18-2024 Episodic Other diseases of bladder and urethra (3 sources) Contracture of bladder neck; Translations: [Bladder-neck [...] Translations: [ED (erectile dysfunction)] 05-11-2015 Chronic Other nervous system disorders (2 sources) Unable to walk; Translations: [Difficulty in walking, not elsewhere classified] 04-28-2025 Chronic Other non-traumatic joint disorders (1 source) Hip pain; Translations: [Pain in left hip] Episodic Other skin disorders (2 sources) Disorder of hand; Translations: [Disorder of the skin and subcutaneous tissue, unspecified] 02-07-2024 Episodic Pneumonia (except that caused by tuberculosis or sexually transmitted disease) (6 sources) Infective pneumonia; Translations: [Pneumonia, unspecified organism] Episodic Residual codes; unclassified (2 sources) Family history of diabetes mellitus; Translations: [Family history of diabetes mellitus] Onset: 9 Episodic Residual codes; unclassified (2 sources) Family history of ischemic heart disease and other diseases of the circulatory system; Translations: [Family hx of ischem heart dis and oth dis of the [facility]] Onset: 9 Episodic Residual codes; unclassified (2 sources) Family history of malignant neoplasm of prostate; Translations: [Family history of malignant neoplasm of prostate] Onset: 9 Episodic Residual codes; unclassified (2 sources) Family history of malignant neoplasm of digestive organs; Translations: [Family history of malignant neoplasm of digestive organs] Onset: 9 Episodic Septicemia (except in labor) (6 sources) Sepsis; Translations: [Sepsis, unspecified organism] Episodic Spondylosis; intervertebral disc disorders; other back problems (1 source) Degeneration of lumbar intervertebral disc; Translations: [Other intervertebral disc degeneration, lumbar region] 11-08-2023 Chronic Syncope (3 sources) Near syncope; Translations: [Syncope and collapse] 02-03-2023 [...] 02-06-2021 01-03-2019 Episodic Other aftercare (4 sources) retirement (current) use of insulin; Translations: [retirement (current) use of insulin] Onset: 11-16-2018 Episodic [...] Test Name Value Interpretation Reference Range Facility Absolute lymphocyte countOrd ered By: Korey Noel on 04-28-2025 Lymphocytes Auto (Unsp spec) [#/Vol] 1.30 10*3/uL 0.83-4.51 [facility] Absolute neutrophil countOrd ered By: Korey Noel on 04-28-2025 Neutrophils (Bld) [#/Vol] 10.7 10*3/uL High 2.0-7.7 [facility] Anion gap in Serum or Plasma Ordered By: Korey Noel on 04-28-2025 Anion gap [Moles/Vol] 11 mmol/L 5-15 [facility] Automated lymphocyte count a s percentage of total leukocytesOrdered By: Korey Noel on 04-28-2025 Lymphocytes/100 WBC Auto (Unsp spec) 10.0 % Low 19-41 [facility] BUN/creatinine ratioOrdered By: Korey Noel on 04-28-2025 Urea nitrogen/Creatinine [Mass ratio] 20.1 mg/mg High 10-20 [facility] Basophil percentageOrdered B y: Korey Noel on 04-28-2025 Basophils/100 WBC (Bld) 0.8 % 0-1 [facility] Carbon dioxide, total [Moles /volume] in Central venous bloodOrdered By: Korey Noel on 04-28-2025 CO2 [Moles/Vol] 24.3 mmol/L 21.0-32.0 [facility] Chloride assayOrdered By: Luisa Noel on 04-28-2025 Chloride [Moles/Vol] 107 mmol/L 98-108 [facility] Eosinophil percentageOrdered By: Koreypuneet Noel on 04-28-2025 Eosinophils/100 WBC (Bld) 0.3 % 0-5 [facility] Erythrocyte distribution wid th ratioOrdered By: Koreypuneet Noel on 04-28-2025 Erythrocyte distribution width (RBC) [Ratio] 12.8 % 11.6-14.6 [facility] Erythrocyte distribution wid th standard deviationOrdered By: Koreypuneet Noel on 04-28-2025 Erythrocyte distribution width (RBC) [Ratio] 44.2 fl High 35.1-43.9 [facility] Glomerular filtration rate ( GFR) estimation/1.73 sq m using serum, plasma, or whole bOrdered By: Koreypuneet Noel on 04-28-2025 GFR/1.73 sq M.predicted among non-blacks MDRD (S/P/Bld) [Vol rate/Area] 41 mL/min/{1.73_m2} Low >60 [facility] Comment on above: mL/min/1.73m2 CKD-EP I Creatinine Equation (2020) Hematocrit Auto (Bld) [Volum e fraction]Ordered By: [facility] Bert on 04-28-2025 Hematocrit (Bld) [Volume fraction] 40.4 % 40-54 [facility] Hemoglobin A1c percentageOrd ered By: Koreypuneet Noel on 04-28-2025 HbA1c (Bld) [Mass fraction] 7.2 % High <5.7 [facility] Comment on above: Normal < 5.7 % Predi abetic 5.7 - 6.4 % Diabetic >or= 6.5 % Please note range changes. Hemoglobin measurementOrdere d By: Koreypuneet Noel on 04-28-2025 Hemoglobin (Bld) [Mass/Vol] 13.4 g/dL 13.0-16.5 [facility] Immature granulocytes/100 WB C Auto (Bld)Ordered By: Koreypuneet Noel on 04-28-2025 Immature granulocytes/100 WBC (Bld) 1.000 % High 0.0-0.9 [facility] Comment on above: IG% - Immature Granu locytes (promyelocytes, myelocytes and metamyelocytes) > 1% indicates that a LEFT SHIFT is Present. MCV (mean corpuscular volume ) determinationOrdered By: Korey Noel on 04-28-2025 MCV (RBC) [Entitic vol] 94.4 fL High 80-94 [facility] Magnesium measurement (mass/ volume)Ordered By: Juventino Patel on 04-28-2025 Magnesium (Unsp spec) [Mass/Vol] 1.8 mg/dL 1.5-2.2 [facility] Mean corpuscular hemoglobin (MCH) determinationOrdered By: Korey Noel on 04-28-2025 MCH (RBC) [Entitic mass] 31.3 pg 27.0-32.0 [facility] Mean corpuscular hemoglobin concentration (MCHC) determinationOrdered By: Korey Noel on 04-28-2025 MCHC (RBC) [Mass/Vol] 33.2 g/dL 32-36 [facility] Mean platelet volume determi nationOrdered By: Korey Noel on 04-28-2025 Platelet mean volume (Bld) [Entitic vol] 9.5 fL 6.2-12.0 [facility] Monocyte percentageOrdered B y: Korey Noel on 04-28-2025 Monocytes/100 WBC (Bld) 5.7 % 0-10 [facility] Neutrophil percentageOrdered By: Koreypuneet Noel on 04-28-2025 Neutrophils/100 WBC (Bld) 82.2 % High 47-70 [facility] Nucleated red blood cell per centageOrdered By: Korey Noel on 04-28-2025 Nucleated RBC/100 WBC (Bld) [Ratio] 0 % 0-5 [facility] Platelet countOrdered By: Luisa Noel on 04-28-2025 Platelets (Bld) [#/Vol] 331 10*3/uL 150-450 [facility] Potassium measurement (mass/ volume)Ordered By: Korey Noel on 04-28-2025 Potassium (Unsp spec) [Mass/Vol] 4.5 mmol/L 3.3-5.1 [facility] RBC Auto (Bld) [#/Vol]Ordere d By: Korey Noel on 04-28-2025 RBC (Bld) [#/Vol] 4.28 10*6/uL Low 4.6-6.2 [facility] Serum creatinine measurement (mass/volume)Ordered By: [facility] on 04-28-2025 Creatinine [Mass/Vol] 1.65 mg/dL High 0.70-1.20 [facility] Serum glucose measurement (m ass/volume)Ordered By: [facility] on 04-28-2025 Glucose [Mass/Vol] 164 mg/dL High 70-99 [facility] Serum or plasma calcium galen urement (mass/volume)Ordered By: [facility] on 04-28-2025 Calcium [Mass/Vol] 9.1 mg/dL 7.6-11.0 [facility] Serum or plasma urea nitroge n measurement (mass/volume)Ordered By: [facility] on 04-28-2025 Urea nitrogen [Mass/Vol] 33 mg/dL High 4-19 [facility] Sodium levelOrdered By: [facility] on 04-28-2025 Sodium [Moles/Vol] 142 mmol/L 133-145 [facility] White blood cell (WBC) count Ordered By: [facility] on 04-28-2025 WBC (Bld) [#/Vol] 13.0 10*3/uL High 4.4-11.0 [facility] 36on 04-08-2025 36 This was sent Normal [facility] 36 Name of caller: Holli levine Contact phone number: [phone] Relationship to Patient: patient Provider: Dr. Clarke [...] business hours to return their call: Yes Normal [employer] [facility] 36 Spoke with latoya alexis No issues with the sensors. Stated he picked up on 03/26/25 and that will last 28 days and will be due for a refill at that time. If patient is having issues with his sensor as in it doesn't work or fell off too soon he needs to reach out to the company [employer]. Information is listed on senor box [facility] 36 Name of caller: holli levine Contact phone number: [phone] Relationship to Patient: patient Provider: evy Practice: [...] business hours to return their call: N/A [facility] 36on 04-01-2025 36 Message released to patient as written. Labs are stable with improved hemoglobin A1c. Continue all diabetic meds as is. CBC and renal function stable. Lipids at goal. Patient's further questions if applicable: none Were all questions from office addressed or relayed to the patient from encounter: Yes [facility] 36 Placed call to patie nt. Unable to reach them by phone to discuss lab results. Left detailed message to return call to discuss results. Please release information to patient [facility] 36 ----- Message from Evy Blount sent at 04/01/2025 7:00 AM EDT ----- ----- Message ----- From: Jose Clarke DO Sent: 03/31/2025 10:39 AM EDT To: [facility] Clinical Senior Compensation Analyst Labs are stable with improved hemoglobin A1c. Continue all diabetic meds as is. CBC and renal function stable. Lipids at goal. Make sure all this lab is sent to his route sales representative Dr. Vines. ----- Message ----- From: Ayse Salinas Lab Results In Sent: 03/27/2025 2:38 AM EDT To: Jose Clarke DO [facility] Office Visiton 03-26-2025 Follow-up visit [id number] Sharron Joshi 1940 M Date Provider Department Center 03/26/2025 [id number] CLARKE [facility] Family History Problem Relation Age of Onset Colon cancer Mother Comments: age 82 Coronary artery disease Father Comments: [place], age 57 No Known Problems Sister Diabetes Sister Hypertension Brother Prostate cancer Brother 74 Comments: alive age 80 No Known Problems Brother Comments: in ECF, alive age 88 Prostate cancer Brother 70 Dementia Brother Comments: in ECF age 93 Family Status - Relation Status Age at Mother Father Sister Alive Sister Alive Brother Alive Brother Alive Brother Alive Level of Service:80203 [place] OFFICE/OUTPATIENT ESTABLISHED MOD MDM 30 MIN Reason for Visit and Comments: Follow-up [176630] - Med check Normal [facility] Progress Noteon 03-26-2025 Progress Note [facility] - [address] [facility] [address] Visit type: Established Patient Reason [...] - Lipid panel Coronary artery disease involving [place] coronary artery of [place] heart without angina pectoris Essential hypertension Comments: [...] Disp: 100 tablet, Rfl: 2 Continuous Glucose Paint Roller Winder (Appsperse Jose 3 [place]) device, 1 each 2 times daily as needed (check glucose levels). E11.9, Disp: 1 each, Rfl: 0 Continuous Glucose Sensor (FreeStyle Jose 3 Sensor) [facility], 1 each every 14 (fourteen) days. E11.9, [...] , Rfl: gluc (more content not included)... [facility] 02-28-2025 36 Talked to patient an d relayed message and he verbalized understanding. [facility] 02-27-2025 36 Name of caller: Holli levine Contact phone number: [phone] Relationship to Patient: patient Provider: Dr Clarke Practice: [facility] Chief Complaint/Reason for Call: Patient stated he is upset as he went to [facility] to get his insulin glargine (Lantus SoloStar) 100 UNIT/ML pen and was told the medication was cancelled. Patient wanted pal to call [facility] and they confirmed this was cancelled on [...] business hours to return their call: No Normal [facility] 36on 02-12-2025 36 Recent Visits Date Type Provider Dept 12/21/24 Office Visit Jose Payton Evy, DO [facility] 10/30/24 Office Visit Jose Payton Evy, DO [facility] 07/03/24 Office Visit Jose Payton Evy, DO [facility] Showing recent visits [...] recent labs completed in chart? N/A None [place] [id number] 36 Name of caller: Holli levine Contact phone number: [phone] Relationship to Patient: patient Provider: Evy Practice: [facility] Chief Complaint/Reason for Call: Patient states he needs both medications chlorthalidone (Hygroton) 25 MG tablet ,atorvastatin (Lipitor) 80 MG tablet sent to pharmacy [facility] - [address] states they are saying there is no refills. Please advise patient when done needs as soon as possible. Best time of day caller can be reached: any Patient advised that office/PCP has 24-48 business hours to return their call: Yes [facility] Office Visiton 12-21-2024 Follow-up visit [id number] Sharron Joshi 1940 M Date Provider Department Center 12/21/2024 [id number], JOSE F [facility] Family History Problem Relation Age of Onset Colon cancer Mother Comments: age 82 Coronary artery disease Father Comments: [place], age 57 No Known Problems Sister Diabetes Sister Hypertension Brother Prostate cancer Brother 74 Comments: alive age 80 No Known Problems Brother Comments: in ECF, alive age 88 Prostate cancer Brother 70 Dementia Brother Comments: in ECF age 93 Family Status - Relation Status Age at Mother Father Sister Alive Sister Alive Brother Alive Brother Alive Brother Alive Level of Service:55066 [place] OFFICE/OUTPATIENT ESTABLISHED MOD MDM 30 MIN Reason for Visit and Comments: Hospital Follow-up [832] - TOC_ dizzy and nausea Constipation [037553] - Hasn't went in 4 days Normal [facility] Progress Noteon 12-21-2024 Progress Note [facility] - [address] [facility] [address] Visit type: Established Patient Reason [...] kidney disease (HCC) 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 Normal [facility] Hemoglobin A1con 12-19-2024 HbA1c (Bld) [Mass fraction] 7.6 % Normal <=5.6 [facility] Comment on above: Performed By: #### L 500.2500, L501.9985 #### [facility] Laboratory [address] [place], [place], [id number] Basic Metabolic Profile (BMP )on 12-18-2024 BUN/CRE 21.0 RATIO High 10-20 [facility] Comment on above: Performed By: #### L 500.2500, L501.9985 #### [facility] [address] [place], [place], [id number] CA,Total 8.8 mg/dL Normal 8.5-10.1 [facility] Comment on above: Performed By: #### L 500.2500, L501.9985 #### [facility] [address] [place], [address] Chloride [Moles/Vol] 110 mmol/L High 98-107 [facility] Comment on above: Performed By: #### L 500.2500, L501.9985 #### [facility] [address] [place], [address] CO2 [Moles/Vol] 29.0 mmol/L Normal 21.0-32.0 [facility] Comment on above: Performed By: #### L 500.2500, L501.9985 #### [facility] [address] [place], [address] Creatinine [Mass/Vol] 1.43 mg/dL High 0.70-1.30 [facility] Comment on above: Result Comment: The validity of the calculated GFR GFRAA in patients over 70 years has not been determined. Clinical correlation is essential. Performed By: #### L 500.2500, L501.9985 #### [facility] [address] [place], [address] ECRCL 42.96 ml/min Normal [facility] Comment on above: Performed By: #### L 500.2500, L501.9985 #### [facility] [address] [place], [address] EST GFR - AA 61 mL/min Normal >60 [facility] Comment on above: Result Comment: Afri can Austrian GFR Calc Performed By: #### L 500.2500, L501.9985 #### [facility] [address] [place], [address] GAP 3 Low 5-15 [facility] Comment on above: Performed By: #### L 500.2500, L501.9985 #### [facility] [address] [place], [address] GFR/1.73 sq M.predicted among non-blacks MDRD (S/P/Bld) [Vol rate/Area] 50 mL/min/{1.73_m2} Low >60 [facility] Comment on above: Result Comment: Non- GFR Calc Performed By: #### L 500.2500, L501.9985 #### [facility] [address] [place], [address] Glucose [Mass/Vol] 99 mg/dL Normal 74-106 [facility] Comment on above: Performed By: #### L 500.2500, L501.9985 #### [facility] [address] [place], [address] Potassium [Moles/Vol] 3.3 mmol/L Low 3.5-5.1 [facility] Comment on above: Performed By: #### L 500.2500, L501.9985 #### [facility] [address] [place], [address] Sodium [Moles/Vol] 142 mmol/L Normal 136-145 [facility] Comment on above: Performed By: #### L 500.2500, L501.9985 #### [facility] [address] [place], [address] Urea nitrogen [Mass/Vol] 30 mg/dL High 7-18 [facility] Comment on above: Performed By: #### L 500.2500, L501.9985 #### [facility] [address] [place], [address] Bedside Glucoseon 12-18-2024 FINGERSTICK GLU 114 mg/dL High 74-106 [facility] Comment on above: Result Comment: BUCK GEMENT OF PATIENT CARE PER NURSING PROTOCOL Performed By: #### L 501.080 #### [facility] [address] [place], [address] FINGERSTICK GLU 218 mg/dL High 74-106 [facility] Comment on above: Result Comment: BUCK GEMENT OF PATIENT CARE PER NURSING PROTOCOL Performed By: #### L 501.080 #### [facility] [address] [place], [address] FINGERSTICK GLU 186 mg/dL High 74-106 [facility] Comment on above: Result Comment: BUCK GEMENT OF PATIENT CARE PER NURSING PROTOCOL Performed By: #### L 501.080 #### [facility] [address] [place], [address] Discharge Instructionon 11-25 Discharge Instruction [facility] Medical Records Department [address] [place] [address] Instructions for Home/Discharge Instructions 12/18/24 1152 MR#: [id number] Acct: [id number] Name: BRIAN JOSHI Rep #: [id number] : 1940 84 From: Janiya Robert MD [...] DO; Dr. Jose Clarke DO Signed Normal [facility] 12 Lead EKGon 12-17-2024 12 Lead EKG [facility] Cardiovascular Services [address] [place] [address] 12 Lead EKG 12/17/24 1213 MR#: [id number] Acct: [id number] Name: BRIAN JOSHI Rep #: [id number] : 1940 84 From: Vishal Shannon MD Attending Dr: Dr. Janiya Robert MD Status: DIS DIEGO Ordering Dr: Mk Terry DO Date: 12/17/24 Location: U Sex: M C Admitted: 12/17/24 Test Reason [...] infarct Abnormal ECG Confirmed by Vishal Shannon ([id number]), editor school photograph RADHA CAMACHO ([id number]) on 12/19/2024 7:59:59 AM Referred By: Confirmed By: Vishal Shannon 12/19/24 0800 Date Vishal Shannon MD CC: Dr. Mk Terry, DO; Dr. Jose Clarke DO; Dr. Janiya Robert MD Signed [facility] 36on 12-17-2024 36 Triage message revie wed with clinical staff. Patient appointment confirmed. PCP will assess at appointment visit. [facility] 36 S: Patient spoke wit h [facility] nurse regarding dizziness. B: Onset of [...] now) Protocols used: Diabetes - High Blood Tuqcm-DJDZT-NB, Zuwpkqyvj-FMLHH-JU [facility] Basic Metabolic Profile (BMP )on 12-17-2024 BUN/CRE 18.8 RATIO Normal 10-20 [facility] Comment on above: Performed By: #### L 500.2500, L500.3400, L501.5425, L501.2450 #### [facility] [address] [place], [address] CA,Total 9.2 mg/dL Normal 8.5-10.1 [facility] Comment on above: Performed By: #### L 500.2500, L500.3400, L501.5425, L501.2450 #### [facility] [address] [place], [address] Chloride [Moles/Vol] 109 mmol/L High 98-107 [facility] Comment on above: Performed By: #### L 500.2500, L500.3400, L501.5425, L501.2450 #### [facility] [address] [place], [address] CO2 [Moles/Vol] 27.0 mmol/L Normal 21.0-32.0 [facility] Comment on above: Performed By: #### L 500.2500, L500.3400, L501.5425, L501.2450 #### [facility] [address] [place], [address] Creatinine [Mass/Vol] 1.86 mg/dL High 0.70-1.30 [facility] Comment on above: Result Comment: The validity of the calculated GFR GFRAA in patients over 70 years has not been determined. Clinical correlation is essential. Performed By: #### L 500.2500, L500.3400, L501.5425, L501.2450 #### [facility] [address] [place], [address] ECRCL 32.18 ml/min Normal [facility] Comment on above: Performed By: #### L 500.2500, L500.3400, L501.5425, L501.2450 #### [facility] [address] [place], [address] EST GFR - AA 45 mL/min Low >60 [facility] Comment on above: Result Comment: Afri can Austrian GFR Calc Performed By: #### L 500.2500, L500.3400, L501.5425, L501.2450 #### [facility] [address] [place], [address] GAP 8 Normal 5-15 [facility] Comment on above: Performed By: #### L 500.2500, L500.3400, L501.5425, L501.2450 #### [facility] [address] [place], [address] GFR/1.73 sq M.predicted among non-blacks MDRD (S/P/Bld) [Vol rate/Area] 37 mL/min/{1.73_m2} Low >60 [facility] Comment on above: Result Comment: Non- GFR Calc Performed By: #### L 500.2500, L500.3400, L501.5425, L501.2450 #### [facility] [address] [place], [address] Glucose [Mass/Vol] 191 mg/dL High 74-106 [facility] Comment on above: Result Comment: Fast ing Glucose result greater than or equal to 126 mg/dL suggests DIABETES MELLITUS per A.D.A. criteria. Performed By: #### L 500.2500, L500.3400, L501.5425, L501.2450 #### [facility] [address] [place], [address] Potassium [Moles/Vol] 3.6 mmol/L Normal 3.5-5.1 [facility] Comment on above: Performed By: #### L 500.2500, L500.3400, L501.5425, L501.2450 #### [facility] [address] [place], [address] Sodium [Moles/Vol] 145 mmol/L Normal 136-145 [facility] Comment on above: Performed By: #### L 500.2500, L500.3400, L501.5425, L501.2450 #### [facility] [address] [place], [address] Urea nitrogen [Mass/Vol] 35 mg/dL High 7-18 [facility] Comment on above: Performed By: #### L 500.2500, L500.3400, L501.5425, L501.2450 #### [facility] [address] [place], [address] Brain/Head without Contrasto n 12-17-2024 Brain/Head without Contrast [facility] [address] [place] [address] Brain/Head without Contrast MR#: [id number] Acct: [id number] Name: BRIAN JOSHI Rep #: [id number] : 1940 M 84 From: Danii call MD PCP: Dr. Jose Clarke DO Status: REG ER Study: Brain/Head without Contrast Date of Exam: 11/25 02/15 Exam# [id number] Ordering Dr: Mk Terry DO EXAM: BRAIN/HEAD [...] evidence of acute intracranial pathology. Reading Location: [facility] CC: Dr. Mk Terry DO; Dr. Jose Clarke DO Hand Mold Maker: Signed Normal [facility] CBC W/Diff, Automatedon 11-25 Absolute Lymph 3.25 X10 3/uL Normal 0.83-4.51 [facility] Comment on above: Performed By: #### L 100.0100 #### [facility] [address] [place], [address] Absolute Neut 7.9 X10 3/uL High 2.0-7.7 [facility] Comment on above: Performed By: #### L 100.0100 #### [facility] [address] [place], [address] Basophils/100 WBC (Bld) 1.3 % High 0-1 [facility] Comment on above: Performed By: #### L 100.0100 #### [facility] [address] [place], [address] Eosinophils/100 WBC (Bld) 1.1 % Normal 0-5 [facility] Comment on above: Performed By: #### L 100.0100 #### [facility] [address] [place], [address] Erythrocyte distribution width (RBC) [Ratio] 12.8 % Normal 11.6-14.6 [facility] Comment on above: Performed By: #### L 100.0100 #### [facility] [address] [place], [address] Hematocrit (Bld) [Volume fraction] 45.2 % Normal 40-54 [facility] Comment on above: Performed By: #### L 100.0100 #### [facility] [address] [place], [address] Hemoglobin (Bld) [Mass/Vol] 14.6 g/dL Normal 13.0-16.5 [facility] Comment on above: Performed By: #### L 100.0100 #### [facility] [address] [place], [address] IG% 0.500 Normal 0.0-0.9 [facility] Comment on above: Result Comment: IG% - Immature Granulocytes (promyelocytes, myelocytes and metamyelocytes) > 1% indicates that a LEFT SHIFT is Present. Performed By: #### L 100.0100 #### [facility] [address] [place], [address] Lymphocytes/100 WBC (Bld) 25.9 % Normal 19-41 [facility] Comment on above: Performed By: #### L 100.0100 #### [facility] [address] [place], [address] MCH (RBC) [Entitic mass] 30.2 pg Normal 27.0-32.0 [facility] Comment on above: Performed By: #### L 100.0100 #### [facility] [address] [place], [address] MCHC (RBC) [Mass/Vol] 32.3 g/dL Normal 32-36 [facility] Comment on above: Performed By: #### L 100.0100 #### [facility] [address] [place], [address] MCV (RBC) [Entitic vol] 93.6 fL Normal 80-94 [facility] Comment on above: Performed By: #### L 100.0100 #### [facility] [address] [place], [address] Monocytes/100 WBC (Bld) 8.1 % Normal 0-10 [facility] Comment on above: Performed By: #### L 100.0100 #### [facility] [address] [place], [address] Neutrophils/100 WBC (Bld) 63.1 % Normal 47-70 [facility] Comment on above: Performed By: #### L 100.0100 #### [facility] [address] [place], [address] Nucleated RBC (Bld) [#/Vol] 0 10*3/uL Normal 0-5 [facility] Comment on above: Performed By: #### L 100.0100 #### [facility] [address] [place], [address] Platelet mean volume (Bld) [Entitic vol] 10.4 fL Normal 6.2-12.0 [facility] Comment on above: Performed By: #### L 100.0100 #### [facility] [address] [place], [address] Platelets (Bld) [#/Vol] 395 10*3/uL Normal 150-450 [facility] Comment on above: Performed By: #### L 100.0100 #### [facility] [address] [place], [address] RBC (Bld) [#/Vol] 4.83 10*6/uL Normal 4.6-6.2 [facility] Comment on above: Performed By: #### L 100.0100 #### [facility] [address] [place], [address] RDW SD 44.2 fl High 35.1-43.9 [facility] Comment on above: Performed By: #### L 100.0100 #### [facility] [address] [place], [address] WBC (Bld) [#/Vol] 12.5 10*3/uL High 4.4-11.0 [facility] Comment on above: Performed By: #### L 100.0100 #### [facility] [address] [place], [address] Chest 1 View (Portable)on Chest 1 View (Portable) [facility] [address] [place] [address] Chest 1 View (Portable) MR#: [id number] Acct: [id number] Name: BRIAN JOSHI Rep #: [id number] : 1940 M 84 From: Yoni Moreno MD PCP: Dr. Jose Clarke DO Status: PRE ER Study: Chest 1 View (Portable) Date of Exam: 12/17/24 Exam# [id number] Ordering Dr: Mk Terry DO EXAM: XR [...] (Portable) IMPRESSION: Pulmonary venous congestion. Reading Location: [facility] CC: Dr. Mk Terry DO; Dr. Jose Clarke DO Hand Mold Maker: Signed Normal [facility] Emergency Department Summary on 12-17-2024 Emergency Department Summary [facility] Medical Records Department [address] [place] [address] Emergency Department Summary 12/17/24 MR#: [id number] Acct: [id number] Name: BRAIN JOSHI Rep #: [id number] : 1940 84 From: Mk Terry DO PCP: Dr. Jose Clarke DO Status:DIS DIEGO Location: [place] [address] What to do if you have Problems For any increased pain, shortness of breath, bleeding, nausea or vomiting, chest pain, or any unexpected problems, contact your Primary Care Provider. Call [facility] ([phone]) or report to the closest Emergency Room. Call 911 if necessary. 12/21/24 1010 Cosigner Signature (if applicable): 12/22/24 0656 CC: Dr. Jose Clarke DO Signed Normal [facility] Emergency Department Summary [facility] Medical Records Department [address] [place] [address] Emergency Department Summary 12/17/24 MR#: [id number] Acct: [id number] Name: BRIAN JOSHI Rep #: [id number] : 1940 84 From: Mk Terry DO [...] be admitted all question concerns answered 12/17/24 183 Cosigner Signature (if applicable): cc: Dr. Jose [...] admission will discuss case with hospitalist. 12/17/24 172 Cosigner Signature (if applicable): cc: Dr. Jose [...] any. He states he recently saw his route sales representative as his pacemaker battery is due to be changed. [facility] Medical History HLD (hyperlipidemia) Hypertension Stage [...] Smoking Status (more content not included)... Normal [facility] H AND P Exam - Hospitaliston 12-17-2024 H&P Exam - Hospitalist [facility] Medical Records Department [address] [place] [address] H P Exam - Hospitalist 12/17/24 1803 MR#: [id number] Acct: [id number] Name: BRIAN JOSHI Rep #: [id number] : 1940 84 From: Harvey Flores DO [...] and did have some nausea and vomiting. [facility] Medical History HLD (hyperlipidemia) Hypertension [...] Temperature Source (more content not included)... Normal [facility] L501.4020on 12-17-2024 TROPONIN-I HS 10 pg/mL Normal 3.0-78.0 [facility] Comment on above: Result Comment: Geetha saul Note: New Test Units and Gender Specific Reference Ranges. For more information see Policy Stat Procedure [place] High Sensitivity Troponin (TNIH) and attachments. Performed By: #### L 500.2500, L501.9985 #### [facility] [address] [place], [address] L501.5425on 12-17-2024 TROPONIN-I HS 10 pg/mL Normal 3.0-78.0 [facility] Comment on above: Order Comment: 1Y Result Comment: Plea se Note: New Test Units and Gender Specific Reference Ranges. For more information see Policy Stat Procedure [place] High Sensitivity Troponin (TNIH) and attachments. Performed By: #### L 500.2500, L501.9985 #### [facility] [address] [place], [address] Lipaseon 12-17-2024 Lipase [Catalytic activity/Vol] 65 U/L Low 73-393 [facility] Comment on above: Performed By: #### L 500.2500, L500.3400, L501.5425, L501.2450 #### [facility] [address] [place], [address] Liver Profileon 12-17-2024 Albumin [Mass/Vol] 3.5 g/dL Normal 3.2-5.0 [facility] Comment on above: Performed By: #### L 500.2500, L500.3400, L501.5425, L501.2450 #### [facility] [address] [place], [address] ALK P 81 U/L Normal 45-117 [facility] Comment on above: Performed By: #### L 500.2500, L500.3400, L501.5425, L501.2450 #### [facility] [address] [place], [address] ALT [Catalytic activity/Vol] 24 U/L Normal 16-61 [facility] Comment on above: Performed By: #### L 500.2500, L500.3400, L501.5425, L501.2450 #### [facility] [address] [place], [address] AST [Catalytic activity/Vol] 13 U/L Low 15-37 [facility] Comment on above: Performed By: #### L 500.2500, L500.3400, L501.5425, L501.2450 #### [facility] [address] [place], [address] Bilirubin [Mass/Vol] 0.60 mg/dL Normal 0.20-1.00 [facility] Comment on above: Result Comment: For patients on eltrombopag therapy, use of Dimension [place] TBIL is not recommended. Performed By: #### L 500.2500, L500.3400, L501.5425, L501.2450 #### [facility] [address] [place], [address] Bilirubin.direct [Mass/Vol] 0.22 mg/dL Normal 0.00-0.30 [facility] Comment on above: Performed By: #### L 500.2500, L500.3400, L501.5425, L501.2450 #### [facility] [address] [place], [address] Globulin (S) [Mass/Vol] 3.9 g/dL Normal 2.2-4.2 [facility] Comment on above: Performed By: #### L 500.2500, L500.3400, L501.5425, L501.2450 #### [facility] [address] [place], [address] T PROT 7.4 g/dL Normal 6.4-8.2 [facility] Comment on above: Performed By: #### L 500.2500, L500.3400, L501.5425, L501.2450 #### [facility] [address] [place], [address] 36on 11-13-2024 36 S: Patient called [facility] clinical access pray with complaint of blood sugar 55 this [...] right back up over 200. Please call [phone] R: Telephone Appointment scheduled 11/13/[address] [...] week Protocols used: Diabetes - Low Blood [id number]-[id number]-EP Normal [facility] Progress Noteon 11-13-2024 Progress Note [facility] - [address] [facility] [address] Dept: [phone] Dept Loc: [phone] Patient was identified and seen today via [...] stated that they are currently in the state [facility]. If the patient is a minor, permission [...] orders. Jose Clarke DO 11/13/2024 12:14 PM [facility] 29on 11-08-2024 29 Addended by: JOSE TESFAYE on: 11/08/2024 12:49 PM Modules accepted: Orders [facility] 29 Addended by: MADHURI ROBISON on: 11/08/2024 11:43 AM Modules accepted: Orders [facility] 36on 11-08-2024 36 Message released to patient as written. Patient's further questions if applicable: Were all questions from office addressed or relayed to the patient from encounter: Yes. I released the message to the patient. No questions at this time. Please advise [facility] 36 Placed call to lula sims to discuss provider direction. Message left on voicemail to return call. Please release message to patient: Yes. The patient should continue glimepiride as directed [place] [address] Name of caller: Holli abelgia Contact phone number: [phone] Relationship to Patient: patient Provider: Dr. Clarke [...] business hours to return their call: Yes [place] [address] Talked to patient an d relayed message and he will try those recommendations. Also patient is wanting to try the Jose system as well. RX loaded Next ov 02/01/25 [facility] 36 Name of caller: holli berna Contact phone number: [phone] Relationship to Patient: patient Provider: evy Practice: [...] business hours to return their call: Yes [facility] 36on 11-05-2024 36 Patient aware of res ults. Consent to increase his Jardiance to 25mg. Rx pended. Results faxed to Dr. Vines [facility] 36 ----- Message from Vibha Clarke DO [...] consents to. Copy of lab to his route sales representative Dr. Vines [facility] 37on 10-30-2024 37 Restart Gabapentin t wice a day routinely for low back and leg pain [facility] Office Visiton 10-30-2024 Follow-up visit [id number] Sharron Joshi 1940 M Date Provider Department Center 10/30/2024 [id number] CLARKE [facility] Family History Problem Relation Age of Onset Colon cancer Mother Comments: age 82 Coronary artery disease Father Comments: [place], age 57 No Known Problems Sister Diabetes Sister Hypertension Brother Prostate cancer Brother 74 Comments: alive age 80 No Known Problems Brother Comments: in ECF, alive age 88 Prostate cancer Brother 70 Dementia Brother Comments: in ECF age 93 Family Status - Relation Status Age at Mother Father Sister Alive Sister Alive Brother Alive Brother Alive Brother Alive Level of Service:48100 [place] OFFICE/OUTPATIENT ESTABLISHED MOD MDM 30 MIN Reason for Visit and Comments: Follow-up [314262] - Med check [facility] Progress Noteon 10-30-2024 Progress Note [facility] - [address] [facility] [address] Visit type: Established Patient Reason [...] kidney disease (HCC) Coronary artery disease involving [place] coronary artery of [place] heart without angina pectoris Essential hypertension Comments: [...] Name A (more content not included)... Normal [facility] 25-hydroxyvitamin D3 [Mass/V ol]on 10-19-2024 Interpretation and review of laboratory results Normal [facility] Target concentration : 30 - 40 ng/mL; toxicity seen at concentrations >100 ng/mL Therapy is based on measurement of Total 25-OHD with the following classification levels: Less than 20 ng/mL: Indicative of Vit D deficiency 20-30 ng/mL: Suggests Vit D insufficiency Optimal: Greater than or equal to 30 ng/mL Test performed by StraighterLine Competitive Immunoassay, measuring Total Vitamin D, not individual fractions. [facility] CBC (HEMOGRAM)on 10-19-2024 Erythrocyte distribution width (RBC) [Ratio] 13.1 % Normal 11.5-15.0 [facility] Comment on above: Performed By: #### L AB294 ####[employer] Insulator: PIOTR JONES ([id number])[facility]OTTRELL[facility]HLI RITTMAN (SWRLAB)[address] [place] [address] Hematocrit (Bld) [Volume fraction] 45.2 % Normal 40.0-52.0 [facility] Comment on above: Performed By: #### L AB294 ####[employer]: PIOTR JONES ([id number])[facility] ASHLI RITTMAN (SWRLAB)[address] [place] [address] Hemoglobin (Bld) [Mass/Vol] 14.8 g/dL Normal 13.0-18.0 [facility] Comment on above: Performed By: #### L AB294 ####[employer]: PIOTR JONES ([id number])[facility] ASHLI RITTMAN (SWRLAB)[address] [place] [address] MCH (RBC) [Entitic mass] 30.3 pg Normal 26.0-34.0 [facility] Comment on above: Performed By: #### L AB294 ####[employer]: PIOTR JONES ([id number])[facility] COTTRELLASHLI RITTMAN (SWRLAB)[address] [place] [address] MCHC 32.7 % Normal 30.5-36.0 [facility] Comment on above: Performed By: #### L AB294 ####[employer]: PIOTR JONES ([id number])LAURA CORNELIUS RITTMAN (SWRLAB)[address] [place] [address] MCV (RBC) [Entitic vol] 92.6 fL Normal 77.0-99.0 [facility] Comment on above: Performed By: #### L AB294 ####[employer]: PIOTR JONES ([id number])[facility] CORNELIUS RITTMAN (SWRLAB)[address] [place] [address] Platelet mean volume (Bld) [Entitic vol] 9.3 fL Normal 9.0-12.7 [facility] Comment on above: Result Comment: MPV is a calculated measurement using platelet volume ratio Performed By: #### L AB294 ####[employer]: PIOTR JONES ([id number])[facility] CORNELIUS RITTMAN (SWRLAB)[address] [place] [address] [place] Platelets (Bld) [#/Vol] 380 10*3/uL Normal 140-440 [facility] Comment on above: Performed By: #### L AB294 ####[employer]: PIOTR JONES ([id number])[facility] CORNELIUS RITTMAN (SWRLAB)[address] [place] [address] RBC (Bld) [#/Vol] 4.88 10*6/uL Normal 4.40-5.90 [facility] Comment on above: Performed By: #### L AB294 ####[employer]: PIOTR JONES ([id number])[facility] CORNELIUS RITTMAN (SWRLAB)[address] [place] [address] WBC (Bld) [#/Vol] 9.9 10*3/uL Normal 3.6-10.7 [facility] Comment on above: Performed By: #### L AB294 ####[employer]: PIOTR JONES ([id number])[facility] CLARK[place] (SWRLAB)[address] CBC panel Auto (Bld)on 10-19 Erythrocyte distribution width (RBC) [Ratio] 13.1 % 11.5 - 15.0 % [facility] Hematocrit (Bld) [Volume fraction] 45.2 % 40.0 - 52.0 % [facility] Hemoglobin (Bld) [Mass/Vol] 14.8 g/dL 13.0 - 18.0 g/dL [facility] Interpretation and review of laboratory results Normal [facility] MCH (RBC) [Entitic mass] 30.3 pg 26.0 - 34.0 pg [facility] MCHC (RBC) [Mass/Vol] 32.7 % 30.5 - 36.0 % [facility] MCV (RBC) [Entitic vol] 92.6 fL 77.0 - 99.0 fL [facility] Platelet mean volume (Bld) [Entitic vol] 9.3 fL 9.0 - 12.7 fL [facility] Comment on above: MPV is a calculated measurement using platelet volume ratio Platelets (Bld) [#/Vol] 380 10*3/uL 140 - 440 10*3/uL [facility] RBC (Bld) [#/Vol] 4.88 10*6/uL 4.40 - 5.90 10*6/uL [facility] WBC (Bld) [#/Vol] 9.9 10*3/uL 3.6 - 10.7 10*3/uL [facility] CREATININE, URINE, RANDOMon 10-19-2024 CREATININE, URINE 184.1 mg/dL High 63.0-166.0 [facility] Comment on above: Result Comment: TERENCEE R COMMENTS: Concentration is based on a daily urine output of 1.5 L. Performed By: #### L AB439, [id number] ####[employer]: PIOTR JONES ([id number])[facility] LARIOS (SWRLAB)[address] [place] [address] Creatinine (U) [Mass/Vol]on 10-19-2024 Concentration is bas ed on a daily urine output of 1.5 L. [facility] No Panel Informationon 10-19 CREATININE, URINE 184.1 mg/dL High 63.0 - 166.0 mg/dL [facility] Interpretation and review of laboratory results Abnormal [facility] PROTEIN, URINE, RANDOMon Protein (U) [Mass/Vol] 20 mg/dL High <14 [facility] Comment on above: Performed By: #### L AB439, [id number] ####[employer]: PIOTR JONES ([id number])[facility] ASHLI RITTMAN (SWRLAB)[address] [place] [address] PTH INTACTon 10-19-2024 PTH, INTACT 116.1 pg/mL Normal 22.6-120.3 [facility] Comment on above: Performed By: #### L AB108 ####[employer]: MANUELA WYNN ([id number])[facility] RAMONE (SBHLAB)[address] [place] [address] PTH, intacton 10-19-2024 Parathyrin.intact [Mass/Vol] 116.1 pg/mL 22.6 - 120.3 pg/mL [facility] Parathyrin.intact [Mass/Vol] on 10-19-2024 Interpretation and review of laboratory results Normal [facility] Protein, urine, randomon Protein (U) [Mass/Vol] 20 mg/dL High NINF - 14 mg/dL [facility] RENAL FUNCTION PANELon 10-19 Albumin [Mass/Vol] 3.7 g/dL Normal 3.4-4.8 [facility] Comment on above: Performed By: #### L AB19 ####[employer]: PIOTR JONES ([id number])[facility] ASHLI RITTMAN (SWRLAB)[address] [place] [address] Anion gap [Moles/Vol] 10 mmol/L Normal 3-13 [facility] Comment on above: Performed By: #### L AB19 ####[employer]: PIOTR JONES ([id number])[facility] ASHLI RITTMAN (SWRLAB)[address] [place] [address] [place] Calcium [Mass/Vol] 9.5 mg/dL Normal 8.8-10.0 [facility] Comment on above: Performed By: #### L AB19 ####[employer]: PIOTR JONES ([id number])[facility] CORNELIUS RITTMAN (SWRLAB)[address] [place] [address] [place] Chloride [Moles/Vol] 109 mmol/L High 98-107 [facility] Comment on above: Performed By: #### L AB19 ####[employer]ulator: PIOTR JONES ([id number])[facility] CORNELIUS RITTMAN (SWRLAB)[address] [place] [address] [place] CO2 [Moles/Vol] 25 mmol/L Normal 23-31 [facility] Comment on above: Performed By: #### L AB19 ####[employer] Insulator: PIOTR JONES ([id number])[facility] CORNELIUS RITTMAN (SWRLAB)[address] [place] [address] [place] Creatinine [Mass/Vol] 1.93 mg/dL High 0.72-1.25 [facility] Comment on above: Performed By: #### L AB19 ####[employer]ulator: PIOTR JONES ([id number])[facility] CORNELIUS RITTMAN (SWRLAB)[address] [place] [address] [place] GLOMERULAR FILTRATION RATE ML/MIN/1.73 SQ M.PREDICTED 33.9 mL/min/1.73m*2 Low >60.0 [facility] Comment on above: Result Comment: Calc ulation based on the Chronic Kidney Disease Epidemiology Collaboration (CKD-EPI) equation refit without adjustment for race Performed By: #### L AB19 ####[employer]: PIOTR JONES ([id number])[facility] CORNELIUS RITTMAN (SWRLAB)[address] [place] [address] [place] Glucose [Mass/Vol] 153 mg/dL High 82-115 [facility] Comment on above: Performed By: #### L AB19 ####[employer]: PIOTR JONES ([id number])[facility] GRTMAN (SWRLAB)[address] Phosphate [Mass/Vol] 3.2 mg/dL Normal 2.3-4.7 [facility] Comment on above: Performed By: #### L AB19 ####[employer]: PIOTR JONES ([id number])[facility] (SWRLAB)[address] [place] [address] Potassium [Moles/Vol] 3.8 mmol/L Normal 3.5-5.1 [facility] Comment on above: Result Comment: [facility] potassium values may be up to 0.5 mmol/L lower than serum values. Performed By: #### L AB19 ####[employer]: PIOTR JONES ([id number])[facility] G[facility] (SWRLAB)[address] Sodium [Moles/Vol] 144 mmol/L Normal 136-145 [facility] Comment on above: Performed By: #### L AB19 ####[employer]: PIOTR JONES ([id number])[facility] G[facility] (SWRLAB)[address] [place] [address] Urea nitrogen [Mass/Vol] 33 mg/dL High 9-23 [facility] Comment on above: Performed By: #### L AB19 ####[employer]: PIOTR JONES ([id number])[facility] (SWRLAB)[address] [place] [address] Renal function 2000 panelon 10-19-2024 Albumin [Mass/Vol] 3.7 g/dL 3.4 - 4.8 g/dL [facility] Anion gap [Moles/Vol] 10 mmol/L 3 - 13 mmol/L [facility] Calcium [Mass/Vol] 9.5 mg/dL 8.8 - 10. 0 mg/dL [facility] Chloride [Moles/Vol] 109 mmol/L High 98 - 10 7 mmol/L [facility] CO2 [Moles/Vol] 25 mmol/L 23 - 31 mmol/L [facility] Creatinine [Mass/Vol] 1.93 mg/dL High 0.72 - 1.25 mg/dL [facility] GFR/1.73 sq M.predicted (S/P/Bld) [Vol rate/Area] 33.9 mL/min Low - PINF [facility] Comment on above: Calculation based on the Chronic Kidney Disease Epidemiology Collaboration (CKD-EPI) equation refit without adjustment for race Glucose [Mass/Vol] 153 mg/dL High 82 - 115 mg/dL [facility] Interpretation and review of laboratory results Abnormal [facility] Phosphate [Mass/Vol] 3.2 mg/dL 2.3 - 4 .7 mg/dL [facility] Potassium [Moles/Vol] 3.8 mmol/L 3.5 - 5.1 mmol/L [facility] Comment on above: Plasma potassium [place] may be up to 0.5 mmol/L lower than serum values. Sodium [Moles/Vol] 144 mmol/L 136 - 145 mmol/L [facility] Urea nitrogen [Mass/Vol] 33 mg/dL High 9 - 23 mg/dL [facility] VITAMIN D DEFICIENCY SCREENI NG (VIT D 25)on 10-19-2024 VIT D 25-OH, TOTAL 31 ng/mL Normal >20 [facility] Comment on above: Result Comment: DEAN Melnedez COMMENTS: Target concentration: 30 - 40 ng/mL; toxicity seen at concentrations >100 ng/mL Therapy is based on measurement of Total 25-OHD with the following classification levels: Less than 20 ng/mL: Indicative of Vit D deficiency 20-30 ng/mL: Suggests Vit D insufficiency Optimal: Greater than or equal to 30 ng/mL Test performed by StraighterLine Competitive Immunoassay, measuring Total Vitamin D, not individual fractions. Performed By: #### L AB535 ####[employer]: PIOTR JONES ([id number])[facility] LARI[facility] (OSIELLAB)[address] [place] [address] Vitamin D Deficiency Screeni ng (Vit D 25)on 10-19-2024 25-hydroxyvitamin D3 [Mass/Vol] 31 ng/mL 20 - PINF ng/mL [facility] 36on 09-19-2024 36 Recent Visits Date Type Provider Dept 07/03/24 Office Visit Jose Payton Brianniteshevy, DO [facility] 02/07/24 Office Visit Jose Payton Brianleena, [facility] 11/08/23 Office Visit Jose Payton Brianleena, [facility] Showing recent visits within past 365 days and meeting all other requirements Future Appointments Date Type Provider Dept 10/30/24 Appointment Jose Payton BrianleenaDO [facility] Showing future appointments within next 90 [...] 31 (H) 07/03/2024 CREATININE 1.56 (H) 07/03/2024 [facility] 36 09-17-2024 36 Name of caller: Holli Joshi Contact phone number: [phone] Relationship to Patient: patient Provider: Dr. Clarke Practice: [place] [facility] Chief Complaint/Reason for Call: FYI Pt wanted to let Dr. Clarke know that his new Rx for empagliflozin (Jardiance) 10 MG is working. Thank you. Best time of day caller can be reached: Any Patient advised that office/PCP has 24-48 business hours to return their call: Yes [facility] 36 Medication name: One touch ultra II [...] prior to picking up the medication: Yes [facility] 36on 09-14-2024 36 Me CW 09/14/24 11:58 AM Note Pt advised and said he picked up medication. [facility] 36 Pt advised and said he picked up medication. [facility] 36on 09-13-2024 36 Called patient to re lay message from Dr. Clarke, phone line picked up and went silent both attempts to call. [place] [address] Message released to patient as written. Patient's [...] said he would like it sent to [facility] [place]. Is he to continue all other medication? Please advise [place] [address] Left message for selma uriostegui to return call to the office, please release information to patient [place] [address] S: Patient spoke blayne bolaños [facility] nurse regarding elevated blood sugars B: [...] mmol/L) Protocols used: Diabetes - High Blood Fwy[facility]-LBPOF-EI [address] 09-11-2024 36 Pended Recent Visits Date Type Provider Dept 07/03/24 Office Visit Jose Clarke DO [facility] 02/07/24 Office Visit Jose Clarke DO [facility] 11/08/23 Office Visit Jose Clarke DO [facility] Showing recent visits within past 365 days and meeting all other requirements Future Appointments Date Type Provider Dept 10/30/24 Appointment Jose Clarke DO [facility] Showing future appointments within next 90 [...] Most recent labs completed in chart? N/A [address] 07-19-2024 36 Noted and form has b een faxed to [facility] [place] [id number] 36 Name of caller: Holli levine Contact phone number: [phone] Relationship to Patient: patient Provider: Dr Clarke Practice: [facility] Chief Complaint/Reason for Call: Patient returned call and states that he has One Touch Delica Plus Lancets 100ct , 33 gauge. FYI Best time of day caller can be reached: any Patient advised that office/PCP has 24-48 business hours to return their call: N/A [facility] 36 [facility] wants us to find out what brand and gauge lancets that Kenny uses. I have left message. [facility] 36on 07-12-2024 36 Rx loaded [facility] 36 Ordering provider: Evy Date of last office [...] of last refill (see medication tab): 12.14.2023 [facility] Office Visiton 07-03-2024 Follow-up visit [id number] Sharron Joshi 1940 M Date Provider Department Center 07/03/2024 [id number] CLARKE [facility] Family History Problem Relation Age of Onset Colon cancer Mother Comments: age 82 Coronary artery disease Father Comments: [place], age 57 No Known Problems Sister Diabetes Sister Hypertension Brother Prostate cancer Brother 74 Comments: alive age 80 No Known Problems Brother Comments: in ECF, alive age 88 Prostate cancer Brother 70 Dementia Brother Comments: in ECF age 92 Family Status - Relation Status Age at Mother Father Sister Alive Sister Alive Brother Alive Brother Alive Brother Alive Level of Service:[id number] [place] PPPS, SUBSEQ VISIT Reason for Visit and Comments: Medicare Annual Wellness Visit Subsequent [677] [facility] PATINSon 07-03-2024 PATINS Personalized Prevent ative Plan [...] Recommendations: A preventive eye exam by an assurance specialist is recommended every 1-2 years to screen for glaucoma, cataracts, macular degeneration, and other eye disorders. A preventive dental visit is recommended every 6 months. Try to get at least 150 minutes of exercise per week or 10,000 steps per day on a pedometer. You need 1200-1500mg of calcium and 5208-7947 international units of vitamin D per day. [...] riding a bicycle or a motorcycle Normal [facility] Progress Noteon 07-03-2024 Progress Note [facility] [address] [facility] [address] Dept: [phone] Dept Chief Complaint: Brian Joshi is an [...] Annual Wellness Visit Never done COVID-19 Vaccine ( - 2022- season) 2024 Influenza Vaccine (1) 06/24/2024 DTaP/Tdap/Td [...] found. Subje (more content not included)... Normal [facility] 36on 06-18-2024 36 Recent Visits Date Type Provider Dept 02/07/24 Office Visit Jose Clarke, DO [facility] 11/08/23 Office Visit [facility] [facility] Showing recent visits within past 365 days and meeting all other requirements Future Appointments Date Type Provider Dept 07/03/24 Appointment Jose Clarke DO [facility] Showing future appointments within next 90 [...] CHOLESTEROLT 111 02/07/2024 TRIG 93 06/17/2022 Normal [facility] 25-hydroxyvitamin D3 [Mass/V ol]on 10-21-2023 Interpretation and review of laboratory results Normal [facility] Therapy is based on measurement of Total 25-OHD with the following classification levels: Less than 20 ng/mL: Indicative of Vit D deficiency 20-30 ng/mL: Suggests Vit D insufficiency Optimal: Greater than or equal to 30 ng/mL Test performed by [employer] Competitive Immunoassay, measuring Total Vitamin D, not individual fractions. [facility] CBC panel Auto (Bld)Ordered By: Bethany Salazar on 10-21-2023 Erythrocyte distribution width (RBC) [Ratio] 12.6 % 11.5 - 14.5 % [facility] Hematocrit (Bld) [Volume fraction] 40.8 % 40.0 - 52.0 % [facility] Hemoglobin (Bld) [Mass/Vol] 13.5 g/dL 13.0 - 18.0 g/dL [facility] Interpretation and review of laboratory results Abnormal [facility] MCH (RBC) [Entitic mass] 30.2 pg 26.0 - 34.0 pg [facility] MCHC (RBC) [Mass/Vol] 33.1 % 32.0 - 36.0 % [facility] MCV (RBC) [Entitic vol] 91.3 fL 80.0 - 98.0 fL [facility] Platelet mean volume (Bld) [Entitic vol] 9.3 fL 7.4 - 12.4 fL [facility] Comment on above: MPV is a calculated measurement using platelet volume ratio Platelets (Bld) [#/Vol] 420 10*3/uL 140 - 440 10*3/uL [facility] RBC (Bld) [#/Vol] 4.47 10*6/uL 4.40 - 5.90 10*6/uL [facility] WBC (Bld) [#/Vol] 11.9 10*3/uL High 3.6 - 10.7 10*3/uL [facility] Creatinine (U) [Mass/Vol]on 10-21-2023 CREATININE, URINE 430.3 mg/dL No Range [facility] PTH, intacton 10-21-2023 Parathyrin.intact [Mass/Vol] 85.1 pg/mL High 7.5 - 53.5 pg/mL [facility] Parathyrin.intact [Mass/Vol] on 10-21-2023 Interpretation and review of laboratory results Abnormal [facility] Protein, urine, randomon Interpretation and review of laboratory results Abnormal [facility] Protein (U) [Mass/Vol] 28 mg/dL High 0 - 1 2 mg/dL [facility] Renal function 2000 panelon 10-21-2023 Albumin [Mass/Vol] 4.1 g/dL 3.5 - 5.0 g/dL [facility] Anion gap [Moles/Vol] 11 mmol/L 3 - 13 mmol/L [facility] Calcium [Mass/Vol] 9.1 mg/dL 8.4 - 10. 4 mg/dL [facility] Chloride [Moles/Vol] 105 mmol/L 98 - 10 7 mmol/L [facility] CO2 [Moles/Vol] 25 mmol/L 22 - 30 mmol/L [facility] Creatinine [Mass/Vol] 1.73 mg/dL High 0.66 - 1.25 mg/dL [facility] GFR/1.73 sq M.predicted MDRD (S/P/Bld) [Vol rate/Area] 38.9 mL/min/{1.73_m2} Low - PINF [facility] Comment on above: Calculation based on the Chronic Kidney Disease Epidemiology Collaboration (CKD-EPI) equation refit without adjustment for race Glucose [Mass/Vol] 219 mg/dL High 70 - 100 mg/dL [facility] Interpretation and review of laboratory results Abnormal [facility] Phosphate [Mass/Vol] 3.1 mg/dL 2.5 - 4 .5 mg/dL [facility] Potassium [Moles/Vol] 3.7 mmol/L 3.5 - 5.1 mmol/L [facility] Sodium [Moles/Vol] 141 mmol/L 135 - 145 mmol/L [facility] Urea nitrogen [Mass/Vol] 35 mg/dL High 9 - 20 mg/dL [facility] Vitamin D Deficiency Screeni ng (Vit D 25)on 10-21-2023 25-hydroxyvitamin D3 [Mass/Vol] 34 ng/mL 30 - 100 ng/mL [facility] Absolute lymphocyte countOrd ered By: Dr. Quesada on 02-03-2023 Lymphocytes Auto (Unsp spec) [#/Vol] 1.42 10*3/uL 0.83-4.51 [facility] Basophil percentageOrdered B y: Dr. Quesada on 02-03-2023 Basophils/100 WBC (Bld) 0.9 % 0-1 [facility] Chloride [Moles/Vol] 106 mmol/L 98-107 [facility] Eosinophils/100 WBC (Bld) 0.8 % 0-5 [facility] Glucose [Mass/Vol] 235 mg/dL 74-106 [facility] Comment on above: Glucose result great er than or equal to 200 mg/dLsuggests DIABETES MELLITUS per A.D.A. criteria. Neutrophils (Bld) [#/Vol] 8.1 10*3/uL 2.0-7.7 [facility] Neutrophils/100 WBC (Bld) 74.8 % 47-70 [facility] Potassium [Moles/Vol] 3.8 mmol/L 3.5-5.1 [facility] Sodium [Moles/Vol] 140 mmol/L 136-145 [facility] WBC (Bld) [#/Vol] 10.8 10*3/uL 4.4-11.0 [facility] Blood erythrocytes count (nu mber/volume)Ordered By: Dr. Quesada on 02-03-2023 RBC (Bld) [#/Vol] 4.58 10*6/uL 4.6-6.2 [facility] Blood hemoglobin measurement (mass/volume)Ordered By: Dr. Quesada on 02-03-2023 Hemoglobin (Bld) [Mass/Vol] 13.9 g/dL 13.0-16.5 [facility] Blood lymphocytes/100 leukoc ytesOrdered By: Dr. Quesada on 02-03-2023 Lymphocytes/100 WBC (Bld) 13.1 % 19-41 [facility] Blood monocytes/100 leukocyt esOrdered By: Dr. Quesada on 02-03-2023 Monocytes/100 WBC (Bld) 9.3 % 0-10 [facility] Blood platelet mean volumeOr dered By: Dr. Quesada on 02-03-2023 Platelet mean volume (Bld) [Entitic vol] 9.9 fL 6.2-12.0 [facility] Determination of erythrocyte mean corpuscular volume (MCV)Ordered By: Dr. Quesada on 02-03-2023 MCV (RBC) [Entitic vol] 94.3 fL 80-94 [facility] Hematocrit Auto (Bld) [Volum e fraction]Ordered By: Dr. Quesada on 02-03-2023 Hematocrit (Bld) [Volume fraction] 43.2 % 40-54 [facility] Laboratory - Chemistry and C hemistry - challengeOrdered By: Dr. Quesada on 02-03-2023 CO2 [Moles/Vol] 27.0 mmol/L 21.0-32.0 [facility] Urea nitrogen/Creatinine [Mass ratio] 25.9 mg/mg 10-20 [facility] Laboratory - Hematology and Cell countsOrdered By: Dr. Quesada on 02-03-2023 Erythrocyte distribution width (RBC) [Entitic vol] 43.9 fL 35.1-43.9 [facility] Erythrocyte distribution width (RBC) [Ratio] 12.7 % 11.6-14.6 [facility] Immature granulocytes/100 WBC (Bld) 1.100 % 0.0-0.9 [facility] Comment on above: IG% - Immature Granu locytes (promyelocytes, myelocytes and metamyelocytes) > 1% indicates that a LEFT SHIFT is Present. MCH (RBC) [Entitic mass] 30.3 pg 27.0-32.0 [facility] Nucleated RBC/100 WBC (Bld) [Ratio] 0 % 0-5 [facility] MCHC Auto (RBC) [Mass/Vol]Or dered By: Dr. Quesada on 02-03-2023 MCHC (RBC) [Mass/Vol] 32.2 g/dL 32-36 [facility] No Panel InformationOrdered By: Dr. Quesada on 02-03-2023 Estimated Creatinine Clearance Calc 34.60 ml/min [facility] Estimated GFR (MDRD) Amer 53 mL/min >60 [facility] Comment on above: GFR Calc Estimated GFR (MDRD) Non-Af Amer 44 mL/min >60 [facility] Comment on above: Non- GFR Calc Platelets bldOrdered By: Dr. Quesada on 02-03-2023 Platelets (Bld) [#/Vol] 426 10*3/uL 150-450 [facility] Serum or plasma calcium galen urement (mass/volume)Ordered By: Dr. Quesada on 02-03-2023 Calcium [Mass/Vol] 9.3 mg/dL 8.5-10.1 [facility] Serum or plasma creatinine m easurement (mass/volume)Ordered By: Dr. Quesada on 02-03-2023 Creatinine [Mass/Vol] 1.62 mg/dL 0.70-1.30 [facility] Comment on above: The validity of the calculated GFR & GFRAA in patients over 70 years has not been determined. Clinical correlation is essential. Serum or plasma urea nitroge n measurement (mass/volume)Ordered By: Dr. Quesada on 02-03-2023 Urea nitrogen [Mass/Vol] 42 mg/dL 7-18 [facility] Thin prep Papanicolaou smear with manual screeningOrdered By: Dr. Quesada on 02-03-2023 Thin prep Papanicolaou smear with manual screening 7 5-15 [facility] Basic metabolic 1998 panelon 10-27-2022 Anion gap [Moles/Vol] 7 mmol/L 3 - 13 mmol/L [facility] Calcium [Mass/Vol] 9.4 mg/dL 8.4 - 10. 4 mg/dL [facility] Chloride [Moles/Vol] 108 mmol/L High 98 - 10 7 mmol/L [facility] CO2 [Moles/Vol] 27 mmol/L 22 - 30 mmol/L [facility] Creatinine [Mass/Vol] 1.50 mg/dL High 0.66 - 1.25 mg/dL [facility] GFR/1.73 sq M.predicted MDRD (S/P/Bld) [Vol rate/Area] 46.5 mL/min/{1.73_m2} Low - PINF [facility] Comment on above: Calculation based on the Chronic Kidney Disease Epidemiology Collaboration (CKD-EPI) equation refit without adjustment for race Glucose [Mass/Vol] 203 mg/dL High 70 - 100 mg/dL [facility] Interpretation and review of laboratory results Abnormal [facility] [employer] Potassium [Moles/Vol] 3.8 mmol/L 3.5 - 5.1 mmol/L [facility] Sodium [Moles/Vol] 141 mmol/L 135 - 145 mmol/L [facility] [employer] Urea nitrogen [Mass/Vol] 39 mg/dL High 9 - 20 mg/dL [facility] [employer] Creatinine (U) [Mass/Vol]on 10-27-2022 CREATININE, URINE 195.8 mg/dL No Range [facility] No Panel Informationon 10-27 [facility] PTH, intacton 10-27-2022 Parathyrin.intact [Mass/Vol] 42.0 pg/mL 7.5 - 53.5 pg/mL [facility] Parathyrin.intact [Mass/Vol] on 10-27-2022 Interpretation and review of laboratory results Normal [facility] Protein, urine, randomon Interpretation and review of laboratory results Abnormal [facility] Protein (U) [Mass/Vol] 21 mg/dL High 0 - 1 2 mg/dL [facility] Glucose Glucometer (BldC) [M ass/Vol]on 09-13-2022 Glucose [Mass/Vol] 96 mg/dL 74-106 [facility] Work Phone: Comment on above: MANAGEMENT OF PATIEN T CARE PER NURSING PROTOCOL Absolute lymphocyte counton 09-09-2022 Lymphocytes Auto (Unsp spec) [#/Vol] 2.18 10*3/uL 0.83-4.51 [facility] Work Phone: Basophil percentageon 2021 Basophils/100 WBC (Bld) 1.6 % 0-1 [facility] Work Phone: Chloride [Moles/Vol] 108 mmol/L 98-107 [facility] Work Phone: Eosinophils/100 WBC (Bld) 7.6 % 0-5 [facility] Work Phone: Glucose [Mass/Vol] 108 mg/dL 74-106 [facility] Work Phone: Comment on above: Fasting Glucose resu lt from 100 to 125 mg/dL suggests IMPAIRED HOMEOSTASIS per A.D.A. criteria. Neutrophils (Bld) [#/Vol] 6.8 10*3/uL 2.0-7.7 [facility] Work Phone: Neutrophils/100 WBC (Bld) 58.9 % 47-70 [facility] Work Phone: Potassium [Moles/Vol] 3.9 mmol/L 3.5-5.1 [facility] Work Phone: Sodium [Moles/Vol] 141 mmol/L 136-145 [facility] Work Phone: WBC (Bld) [#/Vol] 11.6 10*3/uL 4.4-11.0 [facility] Work Phone: Blood erythrocytes count (nu mber/volume)on 09-09-2022 RBC (Bld) [#/Vol] 3.25 10*6/uL 4.6-6.2 [facility] Work Phone: Blood hemoglobin measurement (mass/volume)on 09-09-2022 Hemoglobin (Bld) [Mass/Vol] 9.7 g/dL 13.0-16.5 [facility] Work Phone: Blood lymphocytes/100 leukoc yteson 09-09-2022 Lymphocytes/100 WBC (Bld) 18.8 % 19-41 [facility] Work Phone: Blood monocytes/100 leukocyt eson 09-09-2022 Monocytes/100 WBC (Bld) 11.3 % 0-10 [facility] Work Phone: Blood platelet mean volumeon 09-09-2022 Platelet mean volume (Bld) [Entitic vol] 8.6 fL 6.2-12.0 [facility] Work Phone: Determination of erythrocyte mean corpuscular volume (MCV)on 09-09-2022 MCV (RBC) [Entitic vol] 94.8 fL 80-94 [facility] Work Phone: Hematocrit Auto (Bld) [Volum e fraction]on 09-09-2022 Hematocrit (Bld) [Volume fraction] 30.8 % 40-54 [facility] Work Phone: Laboratory - Chemistry and C hemistry - challengeon 09-09-2022 CO2 [Moles/Vol] 29.0 mmol/L 21.0-32.0 [facility] Work Phone: Urea nitrogen/Creatinine [Mass ratio] 18.8 mg/mg 10-20 [facility] Work Phone: Laboratory - Hematology and Cell countson 09-09-2022 Erythrocyte distribution width (RBC) [Entitic vol] 46.0 fL 35.1-43.9 [facility] Work Phone: [phone] Erythrocyte distribution width (RBC) [Ratio] 13.2 % 11.6-14.6 [facility] Work Phone: [phone] Immature granulocytes/100 WBC (Bld) 1.800 % 0.0-0.9 [facility] Work Phone: [phone] Comment on above: IG% - Immature Granu locytes (promyelocytes, myelocytes and metamyelocytes) > 1% indicates that a LEFT SHIFT is Present. MCH (RBC) [Entitic mass] 29.8 pg 27.0-32.0 [facility] Work Phone: [phone] Nucleated RBC/100 WBC (Bld) [Ratio] 0 % 0-5 [facility] Work Phone: [phone] MCHC Auto (RBC) [Mass/Vol]on 09-09-2022 MCHC (RBC) [Mass/Vol] 31.5 g/dL 32-36 [facility] Work Phone: No Panel Informationon 09-09 Estimated Creatinine Clearance Calc 46.08 ml/min [facility] Work Phone: [phone] Estimated GFR (MDRD) Amer 64 mL/min >60 [facility] Work Phone: [phone] Comment on above: GFR Calc Estimated GFR (MDRD) Non-Af Amer 53 mL/min >60 [facility] Work Phone: [phone] Comment on above: Non- GFR Calc Platelets bldon 09-09-2022 Platelets (Bld) [#/Vol] 560 10*3/uL 150-450 [facility] Work Phone: [phone] Serum or plasma calcium galen urement (mass/volume)on 09-09-2022 Calcium [Mass/Vol] 8.6 mg/dL 8.5-10.1 [facility] Work Phone: [phone] Serum or plasma creatinine m easurement (mass/volume)on 09-09-2022 Creatinine [Mass/Vol] 1.38 mg/dL 0.70-1.30 [facility] Work Phone: Comment on above: The validity of the calculated GFR & GFRAA in patients over 70 years has not been determined. Clinical correlation is essential. Serum or plasma urea nitroge n measurement (mass/volume)on 09-09-2022 Urea nitrogen [Mass/Vol] 26 mg/dL 7-18 [facility] Work Phone: Thin prep Papanicolaou smear with manual screeningon 09-09-2022 Thin prep Papanicolaou smear with manual screening 4 5-15 [facility] Work Phone: Absolute lymphocyte counton 09-01-2022 Lymphocytes Auto (Unsp spec) [#/Vol] 1.47 10*3/uL 0.83-4.51 [facility] Work Phone: Basophil percentageon 2021 Basophils/100 WBC (Bld) 0.9 % 0-1 [facility] Work Phone: Bilirubin [Mass/Vol] 0.70 mg/dL 0.20-1.00 [facility] Work Phone: Comment on above: For patients on eltr ombopag therapy, use of [place] TBIL is not recommended. Chloride [Moles/Vol] 110 mmol/L 98-107 [facility] Work Phone: Eosinophils/100 WBC (Bld) 3.3 % 0-5 [facility] Work Phone: Glucose [Mass/Vol] 133 mg/dL 74-106 [facility] Work Phone: Comment on above: Fasting Glucose resu lt greater than or equal to 126 mg/dL suggests DIABETES MELLITUS per A.D.A. criteria. Neutrophils (Bld) [#/Vol] 8.4 10*3/uL 2.0-7.7 [facility] Work Phone: Neutrophils/100 WBC (Bld) 69.9 % 47-70 [facility] Work Phone: Potassium [Moles/Vol] 3.3 mmol/L 3.5-5.1 [facility] Work Phone: Protein [Mass/Vol] 5.4 g/dL 6.4-8.2 [facility] Work Phone: Sodium [Moles/Vol] 142 mmol/L 136-145 [facility] Work Phone: WBC (Bld) [#/Vol] 12.0 10*3/uL 4.4-11.0 [facility] Work Phone: Blood erythrocytes count (nu mber/volume)on 09-01-2022 RBC (Bld) [#/Vol] 3.09 10*6/uL 4.6-6.2 [facility] Work Phone: Blood hemoglobin measurement (mass/volume)on 09-01-2022 Hemoglobin (Bld) [Mass/Vol] 9.8 g/dL 13.0-16.5 [facility] Work Phone: Blood lymphocytes/100 leukoc yteson 09-01-2022 Lymphocytes/100 WBC (Bld) 12.3 % 19-41 [facility] Work Phone: Blood manual differential co mment interpretation (narrative result)on 09-01-2022 Manual differential comment Ancelmo (Bld) [Interp] SCANNED [facility] Work Phone: Blood monocytes/100 leukocyt eson 09-01-2022 Monocytes/100 WBC (Bld) 13.1 % 0-10 [facility] Work Phone: Blood platelet mean volumeon 09-01-2022 Platelet mean volume (Bld) [Entitic vol] 9.7 fL 6.2-12.0 [facility] Work Phone: Determination of erythrocyte mean corpuscular volume (MCV)on 09-01-2022 MCV (RBC) [Entitic vol] 92.6 fL 80-94 [facility] Work Phone: Glucose Glucometer (BldC) [M ass/Vol]on 09-01-2022 Glucose [Mass/Vol] 171 mg/dL 74-106 [facility] Work Phone: [phone] Comment on above: MANAGEMENT OF PATIEN T CARE PER NURSING PROTOCOL Hematocrit Auto (Bld) [Volum e fraction]on 09-01-2022 Hematocrit (Bld) [Volume fraction] 28.6 % 40-54 [facility] Work Phone: [phone] Laboratory - Chemistry and C hemistry - challengeon 09-01-2022 ALP [Catalytic activity/Vol] 62 U/L 45-117 [facility] Work Phone: [phone] ALT [Catalytic activity/Vol] 10 U/L 16-61 [facility] Work Phone: [phone] CO2 [Moles/Vol] 29.0 mmol/L 21.0-32.0 [facility] Work Phone: [phone] Globulin (S) [Mass/Vol] 3.2 g/dL 2.2-4.2 [facility] Work Phone: [phone] Urea nitrogen/Creatinine [Mass ratio] 20.0 mg/mg 10-20 [facility] Work Phone: [phone] Laboratory - Hematology and Cell countson 09-01-2022 Erythrocyte distribution width (RBC) [Entitic vol] 43.7 fL 35.1-43.9 [facility] Work Phone: [phone] Erythrocyte distribution width (RBC) [Ratio] 12.9 % 11.6-14.6 [facility] Work Phone: [phone] Immature granulocytes/100 WBC (Bld) 0.500 % 0.0-0.9 [facility] Work Phone: [phone] Comment on above: IG% - Immature Granu locytes (promyelocytes, myelocytes and metamyelocytes) > 1% indicates that a LEFT SHIFT is Present. MCH (RBC) [Entitic mass] 31.7 pg 27.0-32.0 [facility] Work Phone: [phone] Nucleated RBC/100 WBC (Bld) [Ratio] 0 % 0-5 [facility] Work Phone: [phone] MCHC Auto (RBC) [Mass/Vol]on 09-01-2022 MCHC (RBC) [Mass/Vol] 34.3 g/dL 32-36 [facility] Work Phone: No Panel Informationon 09-01 Estimated Creatinine Clearance Calc 48.91 ml/min [facility] Work Phone: [phone] Estimated GFR (MDRD) Amer 68 mL/min >60 [facility] Work Phone: Comment on above: GFR Calc Estimated GFR (MDRD) Non-Af Amer 56 mL/min >60 [facility] Work Phone: Comment on above: Non- GFR Calc Platelets bldon 09-01-2022 Platelets (Bld) [#/Vol] 268 10*3/uL 150-450 [facility] Work Phone: Review by pathologiston Pathologist review Ancelmo (Unsp spec) [Interp] Reviewed [facility] Work Phone: Comment on above: Previous reported re sult: Gissel winchester Edited by: JESSICA on 09/02/22:09Leukocytosis. Normocytic anemia.Clinical correlation necessary.Billy Munguia M.D. 09/02/22 AMENDED REPORT 09/02/22 [id number] PATH REV previously reported as: Gissel winchester Serum or plasma albumin galen urement (mass/volume)on 09-01-2022 Albumin [Mass/Vol] 2.2 g/dL 3.2-5.0 [facility] Work Phone: [phone] Serum or plasma albumin/glob ulin mass ratioon 09-01-2022 Albumin/Globulin [Mass ratio] 0.7 {ratio} 0.9-2.4 [facility] Work Phone: [phone] Serum or plasma calcium galen urement (mass/volume)on 09-01-2022 Calcium [Mass/Vol] 8.2 mg/dL 8.5-10.1 [facility] Work Phone: [phone] Serum or plasma creatinine m easurement (mass/volume)on 09-01-2022 Creatinine [Mass/Vol] 1.30 mg/dL 0.70-1.30 [facility] Work Phone: Comment on above: The validity of the calculated GFR & GFRAA in patients over 70 years has not been determined. Clinical correlation is essential. Serum or plasma urea nitroge n measurement (mass/volume)on 09-01-2022 Urea nitrogen [Mass/Vol] 26 mg/dL 7-18 [facility] Work Phone: Thin prep Papanicolaou smear with manual screeningon 09-01-2022 Thin prep Papanicolaou smear with manual screening 22 U/L 15-37 [facility] Work Phone: [phone] Thin prep Papanicolaou smear with manual screening 3 5-15 [facility] Work Phone: [phone] Whole blood hemoglobin A1c/t otal hemoglobin ratio (mass fraction)on 08-29-2022 HbA1c (Bld) [Mass fraction] 7.0 % 3.8-5.6 [facility] Work Phone: Comment on above: Normal < 5.7 % Predi abetic 5.7 - 6.4 % Diabetic >or= 6.5 % Please note range changes. Basophil percentageon 2021 Chloride [Moles/Vol] 107 mmol/L 98-107 [facility] Work Phone: Glucose [Mass/Vol] 180 mg/dL 74-106 [facility] Work Phone: Comment on above: Fasting Glucose resu lt greater than or equal to 126 mg/dL suggests DIABETES MELLITUS per A.D.A. criteria. Potassium [Moles/Vol] 3.7 mmol/L 3.5-5.1 [facility] Work Phone: Comment on above: Slight Hemolysis, Re sult may be falsely increased. Sodium [Moles/Vol] 140 mmol/L 136-145 [facility] Work Phone: [phone] WBC (Bld) [#/Vol] 19.3 10*3/uL 4.4-11.0 [facility] Work Phone: [phone] Blood erythrocytes count (nu mber/volume)on 08-28-2022 RBC (Bld) [#/Vol] 4.45 10*6/uL 4.6-6.2 [facility] Work Phone: Blood hemoglobin measurement (mass/volume)on 08-28-2022 Hemoglobin (Bld) [Mass/Vol] 13.6 g/dL 13.0-16.5 [facility] Work Phone: Blood platelet mean volumeon 08-28-2022 Platelet mean volume (Bld) [Entitic vol] 9.7 fL 6.2-12.0 [facility] Work Phone: Determination of erythrocyte mean corpuscular volume (MCV)on 08-28-2022 MCV (RBC) [Entitic vol] 92.6 fL 80-94 [facility] Work Phone: Hematocrit Auto (Bld) [Volum e fraction]on 08-28-2022 Hematocrit (Bld) [Volume fraction] 41.2 % 40-54 [facility] Work Phone: INR in Blood by Coagulation assayon 08-28-2022 INR Coag (Bld) [Relative time] 1.0 {INR} [facility] Work Phone: Laboratory - Chemistry and C hemistry - challengeon 08-28-2022 CO2 [Moles/Vol] 25.0 mmol/L 21.0-32.0 [facility] Work Phone: Urea nitrogen/Creatinine [Mass ratio] 22.4 mg/mg 10-20 [facility] Work Phone: Laboratory - Coagulationon 10-28-2021 aPTT Coag (Bld) [Time] 28.0 s 24.1-36.2 yari [facility] Work Phone: PT Coag (PPP) [Time] 12.9 s 11.7-14.9 os [facility] Work Phone: Laboratory - Hematology and Cell countson 08-28-2022 Erythrocyte distribution width (RBC) [Entitic vol] 43.1 fL 35.1-43.9 [facility] Work Phone: Erythrocyte distribution width (RBC) [Ratio] 12.7 % 11.6-14.6 [facility] Work Phone: [phone] MCH (RBC) [Entitic mass] 30.6 pg 27.0-32.0 [facility] Work Phone: [phone] MCHC Auto (RBC) [Mass/Vol]on 08-28-2022 MCHC (RBC) [Mass/Vol] 33.0 g/dL 32-36 [facility] Work Phone: [phone] No Panel Informationon 08-28 Estimated Creatinine Clearance Calc 39.02 ml/min [facility] Work Phone: [phone] Estimated GFR (MDRD) Amer 53 mL/min >60 [facility] Work Phone: [phone] Comment on above: GFR Calc Estimated GFR (MDRD) Non-Af Amer 44 mL/min >60 [facility] Work Phone: [phone] Comment on above: Non- GFR Calc Platelets bldon 08-28-2022 Platelets (Bld) [#/Vol] 352 10*3/uL 150-450 [facility] Work Phone: [phone] Serum or plasma calcium galen urement (mass/volume)on 08-28-2022 Calcium [Mass/Vol] 9.0 mg/dL 8.5-10.1 [facility] Work Phone: [phone] Serum or plasma creatinine m easurement (mass/volume)on 08-28-2022 Creatinine [Mass/Vol] 1.61 mg/dL 0.70-1.30 [facility] Work Phone: [phone] Comment on above: The validity of the calculated GFR & GFRAA in patients over 70 years has not been determined. Clinical correlation is essential. Serum or plasma urea nitroge n measurement (mass/volume)on 08-28-2022 Urea nitrogen [Mass/Vol] 36 mg/dL 7-18 [facility] Work Phone: [phone] Thin prep Papanicolaou smear with manual screeningon 08-28-2022 Thin prep Papanicolaou smear with manual screening 8 5-15 [facility] Work Phone: CR Hip w/ Pelvis 2 or 3 View s Lefton 03-10-2022 CR Hip w/ Pelvis 2 or 3 Views Left Patient Name: BRIAN JOSHI Diagnostic Radiology ACCESSION EXAM DATE/TIME PROCEDURE ORDERING PROVIDER [id number] 03/10/2022 10:11 EDT CR Hip w/ Pelvis 2 or 3 DO EVYJOSE Views Left n CPT code 58220 Reason For Exam (CR Hip w/ Pelvis [...] Time: 03/10/2022 9:52 Normal [facility] CR Spine Lumbosacral 4+ View son 03-10-2022 CR Spine Lumbosacral 4+ Views Patient Name: BRIAN JOSHI Diagnostic Radiology ACCESSION EXAM DATE/TIME PROCEDURE ORDERING PROVIDER [id number] 03/10/2022 10:11 EDT CR Spine Lumbosacral 4+ DO CLARKE EUGENE F. Views CPT code 83554 Reason For Exam (CR Spine Lumbosacral 4+ [...] Time: 03/10/2022 9:52 Normal [facility] XR HIP LEFT (2-3 VIEWS)on [id number] ACCESSION EXAM DATE/TIME PROCEDURE ORDERING PROVIDER [id number] 03/10/2022 10:11 EDT CR Hip w/ Pelvis 2 or 3 DO CLARKE EUGENE F. Views Left n CPT code 58317 Reason For Exam (CR Hip w/ Pelvis [...] JEFFREY Transcribed Date and Time: 03/10/2022 9:52 [facility] Aurelio Rick MD - 03/10/2022 Patient Name: BRIAN JOSHI Diagnostic Radiology ACCESSION EXAM DATE/TIME PROCEDURE ORDERING PROVIDER [id number] 03/10/2022 10:11 EDT CR Hip w/ Pelvis 2 or 3 DO CLARKE EUGENE F. Views Left n CPT code 51010 Reason For Exam (CR Hip w/ Pelvis [...] and Time: 03/10/2022 9:52 [facility] Phone: [facility]: [facility]iology Study observation (narrative) [facility] Work Phone: XR LUMBAR SPINE (MIN 4 VIEWS )on 03-10-2022 [facility]: [id number] Radiology ACCESSION EXAM DATE/TIME PROCEDURE ORDERING PROVIDER [id number] 03/10/2022 10:11 EDT CR Spine Lumbosacral 4+ DO CLARKE EUGENE F. Views CPT code 92161 Reason For Exam (CR Spine Lumbosacral 4+ [...] JEFFREY Transcribed Date and Time: 03/10/2022 9:52 [facility] Aurelio Rick MD - 03/10/2022 Patient Name: BRIAN JOSHI Diagnostic Radiology ACCESSION EXAM DATE/TIME PROCEDURE ORDERING PROVIDER [id number] 03/10/2022 10:11 EDT CR Spine Lumbosacral 4+ DO CLARKE EUGENE F. Views CPT code 48470 Reason For Exam (CR Spine Lumbosacral 4+ [...] Transcribed Date and Time: 03/10/2022 9:52 [facility] Radiology Study observation (narrative) [facility] Work Phone: XR LUMBAR SPINE (MIN 4 VIEWS )Ordered By: Aurelio Rick on 03-10-2022 [facility]: Creatinine, Ur Randomon 11-24 Creatinine, Ur Random 123.9 mg/dL Normal No Range [facility] Comment on above: Performed By: #### P TH3, VD25H ####[address] [place] [address]#### RENL3, CRTUR, HEMOG, TPUR ####[address] [place] [address] Hemogramon 12-07-2021 Erythrocyte distribution width (RBC) [Ratio] 13.7 % Normal 11.5-14.5 [facility] Comment on above: Performed By: #### P TH3, VD25H ####[address] [address]#### RENL3, CRTUR, HEMOG, TPUR ####[address] [place] [address] Hematocrit (Bld) [Volume fraction] 40.8 % Normal 40.0-52.0 [facility] Comment on above: Performed By: #### P TH3, VD25H ####[address] [address]#### RENL3, CRTUR, HEMOG, TPUR ####[address] [place] [address] Hemoglobin (Bld) [Mass/Vol] 13.5 g/dL Normal 13.0-18.0 [facility] Comment on above: Performed By: #### P TH3, VD25H ####[address] [address]#### RENL3, CRTUR, HEMOG, TPUR ####[address] [place] [address] MCH (RBC) [Entitic mass] 30.4 pg Normal 26.0-34.0 [facility] Comment on above: Performed By: #### P TH3, VD25H ####[address] [address]#### RENL3, CRTUR, HEMOG, TPUR ####[address] [place] [address] MCHC 33.0 % Normal 32.0-36.0 [facility] Comment on above: Performed By: #### P TH3, VD25H ####[address] [place] [address]#### RENL3, CRTUR, HEMOG, TPUR ####[facility] [place] [address] MCV (RBC) [Entitic vol] 92.1 fL Normal 80.0-98.0 [facility] Comment on above: Performed By: #### P TH3, VD25H ####[address] [place] [address]#### RENL3, CRTUR, HEMOG, TPUR ####[address] [place] [address] Platelet mean volume (Bld) [Entitic vol] 7.6 fL Normal 7.4-10.4 [facility] Comment on above: Performed By: #### P TH3, VD25H ####[address] [place] [address]#### RENL3, CRTUR, HEMOG, TPUR ####[facility] [place] [address] Platelets (Bld) [#/Vol] 375 10*3/uL Normal 140-440 [facility] Comment on above: Performed By: #### P TH3, VD25H ####[address] [facility] [place] [address]#### RENL3, CRTUR, HEMOG, TPUR ####[facility] [place] [address] RBC (Bld) [#/Vol] 4.43 10*6/uL Normal 4.40-5.90 [facility] Comment on above: Performed By: #### P TH3, VD25H ####[place] [address] [place] [address]#### RENL3, CRTUR, HEMOG, TPUR ####[facility] [place] [address] WBC (Bld) [#/Vol] 8.9 10*3/uL Normal 3.6-10.7 [facility] Comment on above: Performed By: #### P TH3, VD25H ####[place] [address] [place] [address]#### RENL3, CRTUR, HEMOG, TPUR ####[facility] [place] [address] PTH, Intacton 12-07-2021 PTH, Intact 68.3 pg/mL High 8.0-54.0 [facility] Comment on above: Performed By: #### P TH3, VD25H ####[place] [address] [place] [address]#### RENL3, CRTUR, HEMOG, TPUR ####[facility] [place] [address] Protein, Ur Randomon 022 Protein, Ur Random 15 mg/dL High No Range [facility] Comment on above: Performed By: #### P TH3, VD25H ####[place] [address] [place] [address]#### RENL3, CRTUR, HEMOG, TPUR ####[facility] [place] [address] Renal Functionon 12-07-2021 Calcium [Mass/Vol] 9.6 mg/dL Normal 8.4-10.4 [facility] Comment on above: Performed By: #### P TH3, VD25H ####[place] [address] [place] [address]#### RENL3, CRTUR, HEMOG, TPUR ####[address] [place] [address] Phosphate [Mass/Vol] 2.8 mg/dL Normal 2.5-4.5 [facility] Comment on above: Performed By: #### P TH3, VD25H ####[address] [place] [address]#### RENL3, CRTUR, HEMOG, TPUR ####[address] [place] [address] Anion gap [Moles/Vol] 4 mmol/L Normal 3-13 [facility] Comment on above: Performed By: #### P TH3, VD25H ####[address] [place] [address]#### RENL3, CRTUR, HEMOG, TPUR ####[address] [place] [address] CO2 [Moles/Vol] 28 mmol/L Normal 22-30 [facility] Comment on above: Performed By: #### P TH3, VD25H ####[address] [place] [address]#### RENL3, CRTUR, HEMOG, TPUR ####[address] [place] [address] Creatinine [Mass/Vol] 1.55 mg/dL High 0.52-1.25 [facility] Comment on above: Performed By: #### P TH3, VD25H ####[address] [place] [address]#### RENL3, CRTUR, HEMOG, TPUR ####[address] [place] [address] GFR/1.73 sq M.predicted among blacks MDRD (S/P/Bld) [Vol rate/Area] 48.0 mL/min/{1.73_m2} Abnormal >60 [facility] Comment on above: Performed By: #### P TH3, VD25H ####[address] [place] [address]#### RENL3, CRTUR, HEMOG, TPUR ####[address] [place] [address] GFR/1.73 sq M.predicted among non-blacks MDRD (S/P/Bld) [Vol rate/Area] 41.5 mL/min/{1.73_m2} Abnormal >60 [facility] Comment on above: Result Comment: KDIG [...] secretion. Performed By: #### P TH3, VD25H ####[address] [place] [address]#### RENL3, CRTUR, HEMOG, TPUR ####[facility] [place] [address] Glucose [Mass/Vol] 137 mg/dL High 70-100 [facility] Comment on above: Performed By: #### P TH3, VD25H ####[address] [facility] [place] [address]#### RENL3, CRTUR, HEMOG, TPUR ####[facility] [place] [address] Urea nitrogen [Mass/Vol] 33 mg/dL High 7-17 [facility] Comment on above: Performed By: #### P TH3, VD25H ####[address] [facility] [place] [address]#### RENL3, CRTUR, HEMOG, TPUR ####[address] [place] [address] Albumin [Mass/Vol] 4.2 g/dL Normal 3.5-5.0 [facility] Comment on above: Performed By: #### P TH3, VD25H ####[place] [address] [place] [address]#### RENL3, CRTUR, HEMOG, TPUR ####[facility] [place] [address] Chloride [Moles/Vol] 110 mmol/L High 98-107 [facility] Comment on above: Performed By: #### P TH3, VD25H ####[address] [place] [address]#### RENL3, CRTUR, HEMOG, TPUR ####[facility] [place] [address] Potassium [Moles/Vol] 4.1 mmol/L Normal 3.5-5.1 [facility] Comment on above: Performed By: #### P TH3, VD25H ####[address] [place] [address]#### RENL3, CRTUR, HEMOG, TPUR ####[facility] [place] [address] Sodium [Moles/Vol] 141 mmol/L Normal 135-145 [facility] Comment on above: Performed By: #### P TH3, VD25H ####[address] [place] [address]#### RENL3, CRTUR, HEMOG, TPUR ####[facility] [place] [address] Vit D 25-OH, Totalon 12-07- 022 Vit D 25-OH, Total 46 ng/mL Normal 30-100 [facility] Comment on above: Result Comment: Ther apy is based on measurement of Total 25- OHD with the following classification levels: Less than 20 ng/mL: Indicative of Vit D deficiency 20-30 ng/mL: Suggests Vit D insufficiency Optimal: Greater than or equal to 30 ng/mL Test performed by [employer] Competitive Immunoassay, measuring Total Vitamin D, not individual fractions. Performed By: #### P TH3, VD25H ####[employer] [place] [address]#### RENL3, CRTUR, HEMOG, TPUR ####[employer] [place] [address] CBCOrdered By: Radha beckman on 05-25-2021 Hematocrit (Bld) [Volume fraction] 36.2 % Low 40.0 - 52.0 % [employer] Work Phone: Hemoglobin.gastrointes tinal spec 1 Ql (Stl) 12.0 g/dL Low 13.0 - 18.0 g/dL [employer] Work Phone: Interpretation and review of laboratory results Abnormal [employer] Phone: MCH (RBC) [Entitic mass] 30.6 pg 26.0 - 34.[address] [facility] Work Phone: MCHC (RBC) [Mass/Vol] 33.0 % 32.0 - 36.0 % [employer] Phone: MCV (RBC) [Entitic vol] 92.6 fL 80.0 - 98.0 fL [employer] Work Phone: Platelet distribution width (Bld) [Ratio] 13.7 % 11.5 - 14.5 % [employer] Phone: Platelet mean volume (Bld) [Entitic vol] 7.4 fL 7.4 - 10.4 fL [employer] Phone: Platelets (Bld) [#/Vol] 319 10*3/uL 140 - 440 10*3/uL [employer] Work Phone: RBC (Bld) [#/Vol] 3.91 10*6/uL Low 4.40 - 5.90 10*6/uL [employer] Work Phone: WBC (Bld) [#/Vol] 9.0 10*3/uL 3.6 - 10.7 10*3/uL [employer] Work Phone: Test Performed by [facility], [address] , [place], [place] [address] [facility] Work Phone: [phone] [facility] Work Phone: [phone] Creatinine, Random UrineOrde red By: Radha Torres on 05-25-2021 Creatinine (U) [Mass/Vol] 203.6 mg/dL No Range [facility] Work Phone: [phone] Creatinine, Ur Randomon 08- Creatinine, Ur Random 203.6 mg/dL Normal No Range [facility] Comment on above: Performed By: #### C RTUR, RENL3, HEMOG, TPUR ####[address] [place] [address]#### VD25H, PTH3 ####[address] [place] [address] Hemogramon 05-25-2021 Erythrocyte distribution width (RBC) [Ratio] 13.7 % Normal 11.5-14.5 [facility] Comment on above: Performed By: #### C RTUR, RENL3, HEMOG, TPUR ####[address] [place] [address]#### VD25H, PTH3 ####[address] [address] Hematocrit (Bld) [Volume fraction] 36.2 % Low 40.0-52.0 [facility] Comment on above: Performed By: #### C RTUR, RENL3, HEMOG, TPUR ####[address] [place] [address]#### VD25H, PTH3 ####[address] [place] [address] Hemoglobin (Bld) [Mass/Vol] 12.0 g/dL Low 13.0-18.0 [facility] Comment on above: Performed By: #### C RTUR, RENL3, HEMOG, TPUR ####[address] [place] [address]#### VD25H, PTH3 ####[facility] [place] [address] MCH (RBC) [Entitic mass] 30.6 pg Normal 26.0-34.0 [facility] Comment on above: Performed By: #### C RTUR, RENL3, HEMOG, TPUR ####[facility] [place] [address]#### VD25H, PTH3 ####[facility] [place] [address] MCHC 33.0 % Normal 32.0-36.0 [facility] Comment on above: Performed By: #### C RTUR, RENL3, HEMOG, TPUR ####[facility] [place] [address]#### VD25H, PTH3 ####[address] [place] [address] MCV (RBC) [Entitic vol] 92.6 fL Normal 80.0-98.0 [facility] Comment on above: Performed By: #### C RTUR, RENL3, HEMOG, TPUR ####[address] [place] [address]#### VD25H, PTH3 ####[address] [facility] [place] [address] Platelet mean volume (Bld) [Entitic vol] 7.4 fL Normal 7.4-10.4 [facility] Comment on above: Performed By: #### C RTUR, RENL3, HEMOG, TPUR ####[facility] [place] [address]#### VD25H, PTH3 ####[address] [facility] [place] [address] Platelets (Bld) [#/Vol] 319 10*3/uL Normal 140-440 [facility] Comment on above: Performed By: #### C RTUR, RENL3, HEMOG, TPUR ####[facility] [place] [address]#### VD25H, PTH3 ####[address] [place] [address] RBC (Bld) [#/Vol] 3.91 10*6/uL Low 4.40-5.90 [facility] Comment on above: Performed By: #### C RTUR, RENL3, HEMOG, TPUR ####[facility] [place] [address]#### VD25H, PTH3 ####[facility] [place] [address] WBC (Bld) [#/Vol] 9.0 10*3/uL Normal 3.6-10.7 [facility] Comment on above: Performed By: #### C RTUR, RENL3, HEMOG, TPUR ####[facility] [place] [address]#### VD25H, PTH3 ####[facility] [place] [address] No Panel InformationOrdered By: Radha Torres on 05-25-2021 Test Performed by [facility], [address] [place], [place] [address] [facility] Work Phone: [phone] [facility] Work Phone: 1 PTH, Intacton 05-25-2021 PTH, Intact 77.0 pg/mL High 15.0-63.0 [facility] Comment on above: Performed By: #### C RTUR, RENL3, HEMOG, TPUR ####[facility] [place] [address]#### VD25H, PTH3 ####[facility] [place] [address] PTH, IntactOrdered By: Miles Torres on 05-25-2021 Interpretation and review of laboratory results Abnormal [facility] Work Phone: [phone] Pth Intact 77 pg/mL High 15.0 - 63.0 pg/mL [facility] Work Phone: [phone] Test Performed by [facility], [address] [place], [place] [address] [facility] Work Phone: [facility] Work Phone: Protein, Ur Randomon 021 Protein, Ur Random 14 mg/dL High No Range [facility] Comment on above: Performed By: #### C RTUR, RENL3, HEMOG, TPUR ####[facility] [place] [address]#### VD25H, PTH3 ####[place] [address] [place] [address] Protein, urine, randomOrdere d By: Radha Torres on 05-25-2021 Interpretation and review of laboratory results Abnormal [facility] Work Phone: [phone] Protein (U) [Mass/Vol] 14 mg/dL High No Range [facility] Work Phone: Renal Functionon 05-25-2021 Calcium [Mass/Vol] 9.2 mg/dL Normal 8.4-10.4 [facility] Comment on above: Performed By: #### C RTUR, RENL3, HEMOG, TPUR ####[address] [place] [address]#### VD25H, PTH3 ####[place] [address] [place] [address] Anion gap [Moles/Vol] 6 mmol/L Normal 3-13 [facility] Comment on above: Performed By: #### C RTUR, RENL3, HEMOG, TPUR ####[facility] [place] [address]#### VD25H, PTH3 ####[place] [address] [place] [address] CO2 [Moles/Vol] 26 mmol/L Normal 22-30 [facility] Comment on above: Performed By: #### C RTUR, RENL3, HEMOG, TPUR ####[address] [place] [address]#### VD25H, PTH3 ####[place] [address] [place] [address] Creatinine [Mass/Vol] 1.63 mg/dL High 0.52-1.25 [facility] Comment on above: Performed By: #### C RTUR, RENL3, HEMOG, TPUR ####[facility] [employer] [address] [place] [address]#### VD25H, PTH3 ####[facility] [place] [address] [place] [address] GFR/1.73 sq M.predicted among blacks MDRD (S/P/Bld) [Vol rate/Area] 45.4 mL/min/{1.73_m2} Abnormal >60 [facility] Comment on above: Performed By: #### C RTUR, RENL3, HEMOG, TPUR ####[facility] [address] [place] [address]#### VD25H, PTH3 ####[address] [place] [address] GFR/1.73 sq M.predicted among non-blacks MDRD (S/P/Bld) [Vol rate/Area] 39.2 mL/min/{1.73_m2} Abnormal >60 [facility] Comment on above: Result Comment: KDIG [...] By: #### C RTUR, RENL3, HEMOG, TPUR ####[facility] [employer] [address] [place] [address]#### VD25H, PTH3 ####[facility] [place] [address] Glucose [Mass/Vol] 87 mg/dL Normal 70-100 [facility] Comment on above: Performed By: #### C RTUR, RENL3, HEMOG, TPUR ####[facility] [place] [address]#### VD25H, PTH3 ####[facility] [place] [address] Phosphate [Mass/Vol] 3.5 mg/dL Normal 2.5-4.5 [facility] Comment on above: Performed By: #### C RTUR, RENL3, HEMOG, TPUR ####[facility] [place] [address]#### VD25H, PTH3 ####[place] [address] [place] [address] Urea nitrogen [Mass/Vol] 29 mg/dL High 7-20 [facility] Comment on above: Performed By: #### C RTUR, RENL3, HEMOG, TPUR ####[address] [place] [address]#### VD25H, PTH3 ####[facility] [place] [address] Albumin [Mass/Vol] 3.9 g/dL Normal 3.5-5.0 [facility] Comment on above: Performed By: #### C RTUR, RENL3, HEMOG, TPUR ####[facility] [place] [address]#### VD25H, PTH3 ####[facility] [place] [address] Chloride [Moles/Vol] 107 mmol/L Normal 98-107 [facility] Comment on above: Performed By: #### C RTUR, RENL3, HEMOG, TPUR ####[facility] [place] [address]#### VD25H, PTH3 ####[facility] [place] [address] Potassium [Moles/Vol] 3.6 mmol/L Normal 3.5-5.1 [facility] Comment on above: Performed By: #### C RTUR, RENL3, HEMOG, TPUR ####[facility] [employer] [address] [place] [address]#### VD25H, PTH3 ####[facility] [place] [address] Sodium [Moles/Vol] 138 mmol/L Normal 135-145 [facility] Comment on above: Performed By: #### C RTUR, RENL3, HEMOG, TPUR ####[facility] [employer] [address] [place] [address]#### VD25H, PTH3 ####[facility] [place] [address] Renal Function PanelOrdered By: Radha Torres on 05-25-2021 Albumin [Mass/Vol] 3.9 g/dL 3.5 - 5.0 g/dL [facility] Work Phone: Anion gap [Moles/Vol] 6 mmol/L 3 - 13 mmol/L [facility] Work Phone: Calcium [Mass/Vol] 9.2 mg/dL 8.4 - 10. 4 mg/dL [facility] Work Phone: Chloride [Moles/Vol] 107 mmol/L 98 - 10 7 mmol/L [facility] Work Phone: CO2 [Moles/Vol] 26 mmol/L 22 - 30 mmol/L [facility] Work Phone: Creatinine [Mass/Vol] 1.63 mg/dL High 0.52 - 1.25 mg/dL [facility] Work Phone: EGFR IF NonAfrican Austrian 39.2 mL/min Abnormal >60 [facility] Work Phone: Comment on above: KDIGO guidelines [...] (S/P/Bld) [Vol rate/Area] 45.4 mL/min/{1.73_m2} Abnormal >60 [facility] Work Phone: [phone] Glucose [Mass/Vol] 87 mg/dL 70 - 100 mg/dL [facility] Work Phone: [phone] Interpretation and review of laboratory results Abnormal [facility] Work Phone: Phosphate [Mass/Vol] 3.5 mg/dL 2.5 - 4 .5 mg/dL [facility] Work Phone: [phone] Potassium [Moles/Vol] 3.6 mmol/L 3.5 - 5.1 mmol/L [facility] Work Phone: [phone] Sodium [Moles/Vol] 138 mmol/L 135 - 145 mmol/L [facility] Work Phone: [phone] Urea nitrogen (BldV) [Mass/Vol] 29 mg/dL High 7 - 20 mg/dL [facility] Work Phone: [phone] Test Performed by [facility], [facility] [address] Work Phone: [phone] [facility] Work Phone: [phone] Vit D 25-OH, Totalon 05-25-2 021 Vit D 25-OH, Total 54 ng/mL Normal 30-100 [facility] Comment on above: Result Comment: Ther apy is based on measurement of Total 25- OHD with the following classification levels: Less than 20 ng/mL: Indicative of Vit D deficiency 20-30 ng/mL: Suggests Vit D insufficiency Optimal: Greater than or equal to 30 ng/mL Test performed by [employer] Competitive Immunoassay, measuring Total Vitamin D, not individual fractions. Performed By: #### C RTUR, RENL3, HEMOG, TPUR ####[facility] [employer] [place] [address]#### VD25H, PTH3 ####[facility] [employer] [place] [address] Vitamin D 25 HydroxyOrdered By: Radha Torres on 05-25-2021 Vit D, 25-Hydroxy 54 ng/mL 30 - 100 ng/mL [employer] Work Phone: Comment on above: Therapy is based on measurement of Total 25-OHD with the following classification levels: Less than 20 ng/mL: Indicative of Vit D deficiency 20-30 ng/mL: Suggests Vit D insufficiency Optimal: Greater than or equal to 30 ng/mL Test performed by [employer] Competitive Immunoassay, measuring Total Vitamin D, not individual fractions. Test Performed by [facility], [address] [place], [place] [address] [employer] Work Phone: [employer] Work Phone: CULTURE BLOODon 04-29-2021 Microscopic examination of blood, culture CULTURE BLOOD --> Status: F No growth at 5 days. Normal [facility] Comment on above: Performed By: #### C /BLD ####[facility] [employer] [address] [id number] CULTURE BLOOD (Two)on 2020 Microscopic examination of blood, culture CULTURE BLOOD (Two) --> Status: F No growth at 5 days. Normal [facility] Comment on above: Performed By: #### C /BLT #### [facility] [employer] [address] [place] [address] COVID-19, RapidOrdered By: Jose Alejandro Garcia on 04-23-2021 SARS-CoV-2 (COVID-19) RNA MIMI+probe Ql (Unsp spec) [facility] below [facility] Work [facility]: Comment on above: Not Detected Expected Result: Not Detected _ Isothermal nucleic acid amplification performed on the [employer] by the [facility] Laboratory Negative results do not preclude SARS-CoV-2 infection and should not be used as the sole basis for treatment or other patient management decisions. This assay was developed by [employer] and distributed under an Emergency Use Authorization (EUA) granted by the FDA for the qualitative detection of SARS-CoV-2 nucleic acid. Provider and patient fact sheets can be found at https://www.fda.gov/media/165962/download and https://www.fda.gov/media/040592/download. Test Performed by [facility], [address] [place], [place] [id number] [place] [address] Work Phone: [facility] Work Phone: CR Chest PA/LATon 04-23-2021 CR Chest PA/LAT Patient Name: BRIAN BRADLEY Diagnostic Radiology ACCESSION EXAM DATE/TIME PROCEDURE ORDERING PROVIDER [id number] 04/23/2021 10:31 EDT CR Chest PA and LAT BUCKY GARCIA CPT code 91971 Reason For Exam (CR Chest PA and [...] 04/23/2021 12:52 EDT by DO NAGY ALFRED [facility] CT Abdomen Pelvis Wo Contras tOrdered By: Bucky Garcia on 04-23-2021 Patient Name: BRIAN BRADLEY Computed Tomography ACCESSION EXAM DATE/TIME PROCEDURE ORDERING PROVIDER [id number] 04/23/2021 11:[address] Abdomen/Pelvis (No BUCKY GARCIA PO, No IV) CPT code 66039 Reason For Exam (CT Abdomen/Pelvis (No PO, [...] Phone: [place], [facility] Rad[facility] Results From [facility] - 04/23/2021 12:02 PM EDT Patient Name: BRIAN JOSHI Computed Tomography ACCESSION EXAM DATE/TIME PROCEDURE ORDERING PROVIDER [id number] 04/23/2021 11:[address] Abdomen/Pelvis (No RADHABUCKY PO, No IV) CPT code 89287 Reason For Exam (CT Abdomen/Pelvis (No PO, [...] and Time: 04/23/2021 12:02 [facility] Work Phone: [facility] Work Phone: CT Abdomen/Pelvis w/o Contra ston 04-23-2021 CT Abdomen/Pelvis w/o Contrast Patient Name: BRIAN JOSHI Computed Tomography ACCESSION EXAM DATE/TIME PROCEDURE ORDERING PROVIDER [id number] 04/23/2021 11:[address] Abdomen/Pelvis (No RADHA, BUCKY PO, No IV) CPT code 55846 Reason For Exam (CT Abdomen/Pelvis (No PO, [...] Time: 04/23/2021 12:02 Normal [facility] Comp Metabolic Panelon 04-23 ALP [Catalytic activity/Vol] 88 U/L Normal 38-126 [facility] Comment on above: Performed By: #### L ACT3, HEMDF, CMP3, LIPA4 #### [facility] [address] [place] [address] ALT [Catalytic activity/Vol] 16 U/L Normal 0-49 [facility] Comment on above: Result Comment: The ALT test is performed by an updated assay method. Please note that the reference intervals have been changed and are now sex specific. Performed By: #### L ACT3, HEMDF, CMP3, LIPA4 #### [facility] [address] [place] [address] Anion gap [Moles/Vol] 10 mmol/L Normal 3-13 [facility] Comment on above: Performed By: #### L ACT3, HEMDF, CMP3, LIPA4 #### [facility] [address] [place] [address] AST [Catalytic activity/Vol] 21 U/L Normal 15-46 [facility] Comment on above: Performed By: #### L ACT3, HEMDF, CMP3, LIPA4 #### [facility] [address] [place] [address] Bilirubin [Mass/Vol] 0.9 mg/dL Normal 0.2-1.3 [facility] Comment on above: Performed By: #### L ACT3, HEMDF, CMP3, LIPA4 #### [facility] [address] [place] [address] Calcium [Mass/Vol] 8.6 mg/dL Normal 8.4-10.4 [facility] Comment on above: Performed By: #### L ACT3, HEMDF, CMP3, LIPA4 #### [facility] [address] [place] [address] CO2 [Moles/Vol] 22 mmol/L Normal 22-30 [facility] Comment on above: Performed By: #### L ACT3, HEMDF, CMP3, LIPA4 #### [facility] [address] [place] [address] Glucose [Mass/Vol] 134 mg/dL High 70-100 [facility] Comment on above: Performed By: #### L ACT3, HEMDF, CMP3, LIPA4 #### [facility] [address] [place] [address] Protein [Mass/Vol] 6.7 g/dL Normal 6.3-8.2 [facility] Comment on above: Performed By: #### L ACT3, HEMDF, CMP3, LIPA4 #### [facility] [address] [place] [address] Urea nitrogen [Mass/Vol] 34 mg/dL High 7-20 [facility] Comment on above: Performed By: #### L ACT3, HEMDF, CMP3, LIPA4 #### [facility] [address] [place] [address] Creatinine [Mass/Vol] 2.24 mg/dL High 0.52-1.25 [facility] Comment on above: Performed By: #### L ACT3, HEMDF, CMP3, LIPA4 #### [facility] [address] [place] [address] GFR/1.73 sq M.predicted among blacks MDRD (S/P/Bld) [Vol rate/Area] 30.9 mL/min/{1.73_m2} Abnormal >60 [facility] Comment on above: Performed By: #### L ACT3, HEMDF, CMP3, LIPA4 #### [facility] [address] [facility] [place] [address] GFR/1.73 sq M.predicted among non-blacks MDRD (S/P/Bld) [Vol rate/Area] 26.7 mL/min/{1.73_m2} Abnormal >60 [facility] Comment on above: Result Comment: KDIG [...] HEMDF, CMP3, LIPA4 #### [facility] [address] [facility] [place] [address] Albumin [Mass/Vol] 3.7 g/dL Normal 3.5-5.0 [facility] Comment on above: Performed By: #### L ACT3, HEMDF, CMP3, LIPA4 #### [facility] [address] [facility] [place] [address] Chloride [Moles/Vol] 106 mmol/L Normal 98-107 [facility] Comment on above: Performed By: #### L ACT3, HEMDF, CMP3, LIPA4 #### [facility] [address] [facility] [place] [address] Potassium [Moles/Vol] 3.1 mmol/L Low 3.5-5.1 [facility] Comment on above: Performed By: #### L ACT3, HEMDF, CMP3, LIPA4 #### [facility] [address] [facility] [place] [address] Sodium [Moles/Vol] 138 mmol/L Normal 135-145 [facility] Comment on above: Performed By: #### L ACT3, HEMDF, CMP3, LIPA4 #### [facility] [address] [place] [address] Complete Urinalysison 2020 Bacteria Moderate (6-50) Abnormal Negative [facility] Comment on above: Result Comment: . Performed By: #### C UA2 ####[facility] [place] [address] RBC, Urine 0 - 2 Normal 0-2 [facility] Comment on above: Result Comment: . Performed By: #### C UA2 ####[place] [address] [place] [address] Squamous Epithelial 0 - 2 Normal 3-5 [facility] Comment on above: Result Comment: . Performed By: #### C UA2 ####[place] [address] [place] [address] VOLUME, URINE 8-12 ml Normal [facility] Comment on above: Result Comment: . Performed By: #### C UA2 ####[place] [address] [place] [address] WBC, Urine 3 - 5 Normal 0-5 [facility] Comment on above: Result Comment: . Performed By: #### C UA2 ####[facility] [place] [address] Bilirubin,Urine Negative Normal Negative [facility] Comment on above: Result Comment: . Performed By: #### C UA2 ####[facility] [place] [address] Glucose Ql (U) Normal Normal Normal (<70) [facility] Comment on above: Result Comment: . Performed By: #### C UA2 ####[place] [address] [place] [address] Ketone,Urine Negative Normal Negative [facility] Comment on above: Result Comment: . Performed By: #### C UA2 ####[place] [address] [place] [address] Leukocytes,Urine 25 Panda/uL Abnormal Negative [facility] Comment on above: Result Comment: . Performed By: #### C UA2 ####[place] [address] [place] [address] Nitrites,Urine Negative Normal Negative [facility] Comment on above: Result Comment: . Performed By: #### C UA2 ####[place] [address] [place] [address] pH,Urine 6.0 Normal 5.0-8.0 [facility] Comment on above: Result Comment: . Performed By: #### C UA2 ####[place] [address] [place] [address] Specific [place],Urine 1.021 Normal 1.005 - 1.030 [facility] Comment on above: Result Comment: . Performed By: #### C UA2 ####[place] [address] [place] [address] Complete UrinalysisOrdered B y: Bucky Garcia on 04-23-2021 Appearance (U) Clear Normal Clear [facility] Work Phone: Comment on above: . Result Comment: . Performed By: #### C UA2 ####[address] [place] [address] Color (U) LIGHT YELLOW Normal Lt. Yellow [facility] Work Phone: Comment on above: . Result Comment: . Performed By: #### C UA2 ####[place] [address] [place] [address] Occult Blood,Urine Negative Normal Negative [facility] Work Phone: Comment on above: . Result Comment: . Performed By: #### C UA2 ####[place] [address] [place] [address] Protein (U) [Mass/Vol] 50 mg/dL Abnormal Negative [employer] Work Phone: Comment on above: . Result Comment: . Performed By: #### C UA2 ####[place] [address] [place] [address] Urobilinogen, Urine Normal Normal Normal (0-1) [facility] Work Phone: [phone] Comment on above: . Result Comment: . Performed By: #### C UA2 ####[place] [address] [place] [address] Comprehensive Metabolic Pane lOrdered By: Bucky Garcia on 04-23-2021 Albumin [Mass/Vol] 3.7 g/dL 3.5 - 5.0 g/dL [facility] Work Phone: 1 ALP (Bld) [Catalytic activity/Vol] 88 U/L 38 - 126 U/L [facility] Work Phone: 1 ALT [Catalytic activity/Vol] 16 U/L 0 - 49 U/L [facility] Work Phone: [phone] Comment on above: The ALT test is perf ormed by an updated assay method. Please note that the reference intervals have been changed and are now sex specific. Anion gap [Moles/Vol] 10 mmol/L 3 - 13 mmol/L [facility] Work Phone: [phone] [Catalytic activity/Vol] 21 U/L 15 - 46 U/L [facility] Work Phone: [phone] Bilirubin [Mass/Vol] 0.9 mg/dL 0.2 - 1 .3 mg/dL [facility] Work Phone: 1 Calcium [Mass/Vol] 8.6 mg/dL 8.4 - 10. 4 mg/dL [facility] Work Phone: Chloride [Moles/Vol] 106 mmol/L 98 - 10 7 mmol/L [facility] Work Phone: 1 CO2 [Moles/Vol] 22 mmol/L 22 - 30 mmol/L [facility] Work Phone: [phone] Creatinine [Mass/Vol] 2.24 mg/dL High 0.52 - 1.25 mg/dL [facility] Work Phone: [phone] IF NonAfrican Austrian 26.7 mL/min Abnormal >60 [facility] Work Phone: [phone] Comment on above: KDIGO guidelines pro vide [...] fraction] 6.7 g/dL 6.3 - 8.2 g/dL [employer] Work Phone: GFR/1.73 sq M.predicted among blacks MDRD (S/P/Bld) [Vol rate/Area] 30.9 mL/min/{1.73_m2} Abnormal >60 [employer] Work Phone: [phone] Glucose [Mass/Vol] 134 mg/dL High 70 - 100 mg/dL [employer] Work Phone: [phone] Interpretation and review of laboratory results Abnormal [employer] Work Phone: [phone] Potassium [Moles/Vol] 3.1 mmol/L Low 3.5 - 5.1 mmol/L [employer] Work Phone: [phone] Sodium [Moles/Vol] 138 mmol/L 135 - 145 mmol/L [employer] Work Phone: [phone] Urea nitrogen (BldV) [Mass/Vol] 34 mg/dL High 7 - 20 mg/dL [employer] Work Phone: [phone] Hemogram (CBC) w/Auto DiffOr dered By: Bucky Garcia on 04-23-2021 Absolute Baso # 0.0 10*3/uL 0.0 - 0.2 10*3/uL [employer] Work Phone: [phone] Absolute Neut # 14.0 10*3/uL High 1.8 - 7.0 10*3/uL [employer] Work Phone: Basophils/100 WBC (Bld) 0.3 % 0.0 - 2.0 % [facility] Work Phone: Eosinophils (Bld) [#/Vol] 0.0 10*3/uL 0.0 - 0.5 10*3/uL [facility] Work Phone: [phone] Eosinophils/100 WBC (Bld) 0.0 % Low 1.0 - 6.0 % [facility] Work Phone: Granulocytes/100 WBC (Bld) 84.8 % High 40.0 - 80.0 % [facility] Work Phone: Hematocrit (Bld) [Volume fraction] 38.9 % Low 40.0 - 52.0 % [employer] Work Phone: Hemoglobin.gastrointes tinal spec 1 Ql (Stl) 13.0 g/dL 13.0 - 18.0 g/dL [employer] Work Phone: Interpretation and review of laboratory results Abnormal [employer] Work Phone: Lymphocytes (Bld) [#/Vol] 1.1 10*3/uL 1.0 - 4.3 10*3/uL [facility] Work Phone: Lymphocytes/100 WBC (Bld) 6.6 % Low 20.0 - 40.0 % [employer] Work Phone: MCH (RBC) [Entitic mass] 30.7 pg 26.0 - 34.0 pg [facility] Work Phone: MCHC (RBC) [Mass/Vol] 33.5 % 32.0 - 36.0 % [facility] Work Phone: MCV (RBC) [Entitic vol] 91.4 fL 80.0 - 98.0 fL [facility] Work Phone: Monocytes (Bld) [#/Vol] 1.4 10*3/uL High 0.0 - 0.8 10*3/uL [facility] Work Phone: 22 Monocytes/100 WBC (Bld) 8.3 % 2.0 - 10.0 % [facility] Work Phone: Platelet distribution width (Bld) [Ratio] 13.3 % 11.5 - 14.5 % [employer] Work Phone: Platelet mean volume (Bld) [Entitic vol] 8.4 fL 7.4 - 10.4 fL [employer] Work Phone: Platelets (Bld) [#/Vol] 339 10*3/uL 140 - 440 10*3/uL [employer] Work Phone: RBC (Bld) [#/Vol] 4.25 10*6/uL Low 4.40 - 5.90 10*6/uL [employer] Work Phone: WBC (Bld) [#/Vol] 16.5 10*3/uL High 3.6 - 10.7 10*3/uL [employer] Work Phone: 1 Test Performed by [facility], [address] , [address] Work Phone: [employer] Work Phone: Hemogram w/ Autodiffon 04-23 Abs Baso Cnt 0.0 10*3/uL Normal 0.0-0.[address] [facility] Comment on above: Performed By: #### L ACT3, HEMDF, CMP3, LIPA4 #### [facility] [employer] [facility] [address] [place] [address] Abs Neutrophile Cnt 14.0 10*3/uL High 1.8-7.0 [facility] Comment on above: Performed By: #### L ACT3, HEMDF, CMP3, LIPA4 #### [facility] [employer] [facility] [address] [place] [address] Basophils/100 WBC (Bld) 0.3 % Normal 0.0-2.0 [facility] Comment on above: Performed By: #### L ACT3, HEMDF, CMP3, LIPA4 #### [facility] [employer] [facility] [address] [facility] [place] [address] Eosinophils (Bld) [#/Vol] 0.0 10*3/uL Normal 0.0-0.5 [facility] Comment on above: Performed By: #### L ACT3, HEMDF, CMP3, LIPA4 #### [facility] [address] [place] [address] Eosinophils/100 WBC (Bld) 0.0 % Low 1.0-6.0 [facility] Comment on above: Performed By: #### L ACT3, HEMDF, CMP3, LIPA4 #### [facility] [address] [place] [address] Erythrocyte distribution width (RBC) [Ratio] 13.3 % Normal 11.5-14.5 [facility] Comment on above: Performed By: #### L ACT3, HEMDF, CMP3, LIPA4 #### [facility] [address] [place] [address] Granulocytes/100 WBC (Bld) 84.8 % High 40.0-80.0 [facility] Comment on above: Performed By: #### L ACT3, HEMDF, CMP3, LIPA4 #### [facility] [address] [place] [address] Hematocrit (Bld) [Volume fraction] 38.9 % Low 40.0-52.0 [facility] Comment on above: Performed By: #### L ACT3, HEMDF, CMP3, LIPA4 #### [facility] [address] [place] [address] Hemoglobin (Bld) [Mass/Vol] 13.0 g/dL Normal 13.0-18.0 [facility] Comment on above: Performed By: #### L ACT3, HEMDF, CMP3, LIPA4 #### [facility] [address] [place] [address] Lymphocytes (Bld) [#/Vol] 1.1 10*3/uL Normal 1.0-4.3 [facility] Comment on above: Performed By: #### L ACT3, HEMDF, CMP3, LIPA4 #### [facility] [address] [place] [address] Lymphocytes/100 WBC (Bld) 6.6 % Low 20.0-40.0 [facility] Comment on above: Performed By: #### L ACT3, HEMDF, CMP3, LIPA4 #### [facility] [address] [place] [address] MCH (RBC) [Entitic mass] 30.7 pg Normal 26.0-34.0 [facility] Comment on above: Performed By: #### L ACT3, HEMDF, CMP3, LIPA4 #### [facility] [address] [place] [address] MCHC 33.5 % Normal 32.0-36.0 [facility] Comment on above: Performed By: #### L ACT3, HEMDF, CMP3, LIPA4 #### [facility] [address] [place] [address] MCV (RBC) [Entitic vol] 91.4 fL Normal 80.0-98.0 [facility] Comment on above: Performed By: #### L ACT3, HEMDF, CMP3, LIPA4 #### [facility] [address] [place] [address] Monocytes (Bld) [#/Vol] 1.4 10*3/uL High 0.0-0.8 [facility] Comment on above: Performed By: #### L ACT3, HEMDF, CMP3, LIPA4 #### [facility] [address] [place] [address] Monocytes/100 WBC (Bld) 8.3 % Normal 2.0-10.0 [facility] Comment on above: Performed By: #### L ACT3, HEMDF, CMP3, LIPA4 #### [facility] [address] [place] [address] Platelet mean volume (Bld) [Entitic vol] 8.4 fL Normal 7.4-10.4 [facility] Comment on above: Performed By: #### L ACT3, HEMDF, CMP3, LIPA4 #### [facility] [address] [place] [address] Platelets (Bld) [#/Vol] 339 10*3/uL Normal 140-440 [facility] Comment on above: Performed By: #### L ACT3, HEMDF, CMP3, LIPA4 #### [facility] [address] [place] [address] RBC (Bld) [#/Vol] 4.25 10*6/uL Low 4.40-5.90 [facility] Comment on above: Performed By: #### L ACT3, HEMDF, CMP3, LIPA4 #### [facility] [address] [place] [address] WBC (Bld) [#/Vol] 16.5 10*3/uL High 3.6-10.7 [facility] Comment on above: Performed By: #### L ACT3, HEMDF, CMP3, LIPA4 #### [facility] [address] [place] [address] Lactic Acidon 04-23-2021 Lactate [Moles/Vol] 1.4 mmol/L Normal 0.7-2.0 [facility] Comment on above: Performed By: #### L ACT3, HEMDF, CMP3, LIPA4 #### [facility] [address] [place] [address] Lactic Acid, PlasmaOrdered B y: Bucky Garcia on 04-23-2021 Lactate [Moles/Vol] 1.4 mmol/L 0.7 - 2. 0 mmol/L [facility] Work Phone: Test Performed by [facility], [address] [place] [address] [facility] Work Phone: [facility] Work Phone: Lipaseon 04-23-2021 Lipase [Catalytic activity/Vol] 161 U/L Normal 23-300 [facility] Comment on above: Performed By: #### L ACT3, HEMDF, CMP3, LIPA4 #### [facility] [address] [place] [address] LipaseOrdered By: Bucky mercedes on 04-23-2021 Lipase [Catalytic activity/Vol] 161 U/L 23 - 300 U/L [facility] Work Phone: No Panel InformationOrdered By: Bucky Garcia on 04-23-2021 Test Performed by [facility], [address] , [place], [place] [address] [facility] Work Phone: [phone] [facility] Work Phone: [phone] SARS-CoV-2 (LAB DEPT)on SARS-CoV-2 (COVID-19) RNA MIMI+probe Ql (Unsp spec) see below Normal [facility] Comment on above: Result Comment: Not Detected Expected Result: Not Detected _ Isothermal nucleic acid amplification performed on the [employer] System by the [facility] Laboratory Negative results do not preclude SARS-CoV-2 infection and should not be used as the sole basis for treatment or other patient management decisions. This assay was developed by [employer] and distributed under an Emergency Use Authorization (EUA) granted by the FDA for the qualitative detection of SARS-CoV-2 nucleic acid. Provider and patient fact sheets can be found at https://www.fda.gov/media/718171/download and https://www.fda.gov/media/341722/download. Performed By: #### C VCCL #### [facility] [address] [place] [address] UrinalysisOrdered By: Charles Garcia on 04-23-2021 Bacteria, UA Moderate (6-50) Abnormal Negative /[HPF] [facility] Work Phone: [phone] Comment on above: . Bilirubin Urine Negative Negative mg/dL [facility] Work Phone: [phone] Comment on above: . Glucose, Ur Normal Normal (<70) mg/dL [facility] Work Phone: [phone] Comment on above: . Interpretation and review of laboratory results Abnormal [facility] Work Phone: [phone] Ketones Ql (U) Negative Negative mg/dL [facility] Work Phone: [phone] Comment on above: . LEUKOCYTES, UA 25 Abnormal Negative Panda/uL [facility] Work Phone: [phone] Comment on above: . Nitrite, Urine Negative Negative NA [facility] Work Phone: [phone] Comment on above: . pH (U) 6.0 [pH] [facility] Work Phone: [phone] Comment on above: . RBC, UA 0-2 0 - 2 /[HPF] [facility] Work Phone: [phone] Comment on above: . Specific [place], Urine 1.021 [facility] Work Phone: [phone] Comment on above: . Squam Epithel, UA 0-2 3 - 5 /[HPF] [facility] Work Phone: [phone] Comment on above: . Volume 8-12 ml [facility] Work Phone: [phone] Comment on above: . WBC, UA 3-5 0 - 5 /[HPF] [facility] Work Phone: [phone] Comment on above: . Test Performed by [facility], [address] [place] [address] , [place] [address] [facility] Work Phone: [address] [facility] Work Phone: [phone] XR CHEST (2 VW)Ordered By: Jose Alejandro Garcia on 04-23-2021 [id number] Radiology ACCESSION EXAM DATE/TIME PROCEDURE ORDERING PROVIDER [id number] 04/23/2021 10:31 EDT CR Chest PA & LAT BUCKY GARCIA CPT code 11605 Reason For Exam (CR Chest PA & [...] DO NAGY ALFRED [facility] Work Phone: [place], [place] Incoming Radiology Results From [facility] - 04/23/2021 12:53 PM EDT Patient Name: BRIAN JOSHI Diagnostic Radiology ACCESSION EXAM DATE/TIME PROCEDURE ORDERING PROVIDER [id number] 04/23/2021 10:31 EDT CR Chest PA & LAT BUCKY GARCIA CPT code 89786 Reason For Exam (CR Chest PA & [...] by DO NAGY ALFRED [facility] Work Phone: [facility] Work Phone: Basic Metabolic Panelon 02-0 Anion gap [Moles/Vol] 6 mmol/L [place], [place] Calcium [Mass/Vol] 9.3 mg/dL 8.4 - 10. 4 mg/dL [place], [place] Chloride [Moles/Vol] 107 mmol/L 98 - 10 7 mmol/L [place] CO2 [Moles/Vol] 29 mmol/L 22 - 30 mmol/L [place] Creatinine [Mass/Vol] 1.48 mg/dL High 0.52 - 1.25 mg/dL [place], [place] EGFR IF NonAfrican [place] 44.2 mL/min Abnormal >60 [place] Comment on above: KDIGO guidelines pro [...] (S/P/Bld) [Vol rate/Area] 51.2 mL/min/{1.73_m2} Abnormal >60 [facility] Glucose [Mass/Vol] 118 mg/dL High 70 - 100 mg/dL [place] Interpretation and review of laboratory results Abnormal [place] Potassium [Moles/Vol] 4.1 mmol/L 3.5 - 5.1 mmol/L [place] Sodium [Moles/Vol] 141 mmol/L 135 - 145 mmol/L [place] Urea nitrogen [Mass/Vol] 27 mg/dL High 7 - 20 mg/dL [place] Test Performed by [facility], [address] , [address] Creatinine, Random Urineon 0 11-24-2020 Creatinine (U) [Mass/Vol] 126.7 mg/dL No Range [place], [place] Otheron 11-24-2020 Test Performed by [facility], [address] , [address] Protein, urine, randomon Interpretation and review of laboratory results Abnormal [place] Protein (U) [Mass/Vol] 33 mg/dL High No Range [place], [place] Troponinon 09-01-2020 Troponin I.cardiac [Mass/Vol] ng/mL 0 - 0.034 ng/mL [place], [place] Comment on above: . Test Performed by [facility], [address] , [address] [employer]Con 05-20-2020 Erythrocyte distribution width (RBC) [Ratio] 13.6 % 11.5 - 14.5 % [place] Hematocrit (Bld) [Volume fraction] 37.8 % Low 40 - 52 % [place] Hemoglobin (Bld) [Mass/Vol] 12.7 g/dL Low 13 - 18 g/dL [place] Interpretation and review of laboratory results Abnormal [place] MCH (RBC) [Entitic mass] 31.6 pg 26 - 34 pg [place] MCHC (RBC) [Mass/Vol] 33.5 % 32 - 36 % [place], [place] MCV (RBC) [Entitic vol] 94.2 fL 80 - 98 fL [place] Platelet mean volume (Bld) [Entitic vol] 8.2 fL 7.4 - 10.4 fL [facility] [place], [place] Platelets (Bld) [#/Vol] 321 10*3/uL 140 - 440 10*3/uL [facility], [place] RBC (Bld) [#/Vol] 4.02 10*6/uL Low 4.4 - 5.9 10*6/uL [facility] [place], [place] WBC (Bld) [#/Vol] 7.3 10*3/uL 3.6 - 10.7 10*3/uL [facility], [place] Test Performed by [facility], [address] , [place], [place] [id number] [place] [address] Creatinine, Random Urineon 0 05-20-2020 Creatinine (U) [Mass/Vol] 230.1 mg/dL No Range [facility], [place] Otheron 05-20-2020 Test Performed by [facility], [address] , [place], [place] [address] [facility], [place] PTH, Intacton 05-20-2020 Pth Intact 62 pg/mL 15 - 63 pg/mL [place] Test Performed by [facility], [address], [place], [place] [address] [place] Protein, urine, randomon Protein (U) [Mass/Vol] 10 mg/dL No Range Me [facility]- [place], [place] Renal Function Panelon 05-20 Albumin [Mass/Vol] 3.4 g/dL Low 3.5 - 5 g/dL [facility], [place] Anion gap [Moles/Vol] 7 mmol/L [facility], [place] Calcium [Mass/Vol] 9.0 mg/dL 8.4 - 10. 4 mg/dL [facility], [place] Chloride [Moles/Vol] 107 mmol/L 98 - 10 7 mmol/L [facility] CO2 [Moles/Vol] 25 mmol/L 22 - 30 mmol/L [facility] Creatinine [Mass/Vol] 1.46 mg/dL High 0.52 - 1.25 mg/dL [facility], [place] EGFR IF NonAfrican Austrian 45.0 mL/min Abnormal >60 [facility] [employer], [place] Comment on above: KDIGO guidelines pro vide [...] (S/P/Bld) [Vol rate/Area] 52.2 mL/min/{1.73_m2} Abnormal >60 [facility] [employer] [place] Glucose [Mass/Vol] 204 mg/dL High 70 - 100 mg/dL [place] Interpretation and review of laboratory results Abnormal [facility], [place] Phosphate [Mass/Vol] 3.2 mg/dL 2.5 - 4 .5 mg/dL [facility], [employer] Potassium [Moles/Vol] 4.1 mmol/L 3.5 - 5.1 mmol/L [facility], [employer] Sodium [Moles/Vol] 139 mmol/L 135 - 145 mmol/L [facility] [employer], [employer] Urea nitrogen [Mass/Vol] 32 mg/dL High 7 - 20 mg/dL [facility], [place] Test Performed by [facility], [facility] [address] , [address] Vitamin D 25 Hydroxyon 05-20 Vit D, 25-Hydroxy 59 ng/mL 30 - 100 ng/mL [place] Comment on above: Therapy is based on measurement of Total 25-OHD with the following classification levels: Less than 20 ng/mL: Indicative of Vit D deficiency 20-30 ng/mL: Suggests Vit D insufficiency Optimal: Greater than or equal to 30 ng/mL Test performed by [employer] Immuno[employer], measuring Total Vitamin D, not individual fractions. Test Performed by [facility], [address], [place], [place] [id number] [place] [address], [place] Creatinine, Random UrineOrde red By: Radha Torres on 11-20-2019 Creatinine (U) [Mass/Vol] 259.5 mg/dL No Range [facility] Work Phone: No Panel InformationOrdered By: Radha Torres on 11-20-2019 Test Performed by [facility], [address], [place], [place] [address] [facility] Work Phone: Test Performed by [facility], [address] , [place], [place] [address] [facility] Work Phone: PTH, IntactOrdered By: Miles Torres on 11-20-2019 Pth Intact 56.9 pg/mL 15 - 63 pg/mL [facility] Work Phone: Protein, urine, randomOrdere d By: Radha Torres on 11-20-2019 Protein (U) [Mass/Vol] 12 mg/dL No Range [facility] Work Phone: Renal Function PanelOrdered By: Radha Torres on 11-20-2019 Albumin [Mass/Vol] 4.2 g/dL 3.5 - 5 g/dL [facility] Work Phone: Anion gap [Moles/Vol] 9 mmol/L [facility] Work Phone: Calcium [Mass/Vol] 9.6 mg/dL 8.4 - 10. 4 mg/dL [facility] Work Phone: Chloride [Moles/Vol] 104 mmol/L 98 - 10 7 mmol/L [facility] Work Phone: CO2 [Moles/Vol] 30 mmol/L 22 - 30 mmol/L [facility] Work Phone: Creatinine [Mass/Vol] 1.61 mg/dL High 0.52 - 1.25 mg/dL [facility] Work Phone: EGFR IF NonAfrican Austrian 41.6 mL/min >60 [facility] Work Phone: Comment on above: Source- MDRD equatio n with creatinine calibration to IDMS(NKDEP) eGFR not recommended for drug dose adjustment GFR/1.73 sq M.predicted among blacks MDRD (S/P/Bld) [Vol rate/Area] 50.5 mL/min/{1.73_m2} >60 [facility] Work Phone: [phone] Glucose [Mass/Vol] 51 mg/dL Low 70 - 100 mg/dL [facility] Work Phone: Interpretation and review of laboratory results Abnormal [facility] Work Phone: Phosphate [Mass/Vol] 3.7 mg/dL 2.5 - 4 .5 mg/dL [facility] Work Phone: [phone] Potassium [Moles/Vol] 3.6 mmol/L 3.5 - 5.1 mmol/L [facility] Work Phone: [phone] Sodium [Moles/Vol] 142 mmol/L 135 - 145 mmol/L [facility] Work Phone: Urea nitrogen [Mass/Vol] 28 mg/dL High 7 - 20 mg/dL [facility] Work Phone: Test Performed by [facility], [address] [place] [address] [address] [place] [address] [facility] Work Phone: Vitamin D 25 HydroxyOrdered By: Radha Torres on 11-20-2019 Vit D, 25-Hydroxy 53 ng/mL 30 - 100 ng/mL [facility] Work Phone: Comment on above: Therapy is based on measurement of Total 25-OHD with the following classification levels: Less than 20 ng/mL: Indicative of Vit D deficiency 20-30 ng/mL: Suggests Vit D insufficiency Optimal: Greater than or equal to 30 ng/mL Test performed by [employer], measuring Total Vitamin D, not individual fractions. Clinical Summary: HMSPatient IDon 11-23-2018 [facility] Work Phone: Clinical Summary: Scanned Hi story Summaryon 11-23-2018 brother(s) of patient alive or Unknown [facility] Work Phone: Cholesterol mass conc Kidney diseaseDiab etes - insulin dependentHigh blood pressurePacemakerHeart attackHigh cholesterol [facility] Work Phone: data entered by patient, alcohol (ethanol or ETOH) use No [facility] Work Phone: data entered by patient, drug (of abuse) use No [facility] Work Phone: data entered by patient, Employer Name Retired [facility] Work Phone: data entered by patient, exercise history No [facility] Work Phone: data entered by patient, father's medical history Heart disease [facility] Work Phone: Data entered by patient, history of past surgeries Pacemaker insertionHeart stent [facility] Work Phone: data entered by patient, mother's medical history Cancer [facility] Work Phone: data entered by patient, social history, marital status [facility] Work Phone: father of patient is alive or [facility] Work Phone: mother of patient is alive or [facility] Work Phone: sister of patient(s) alive or Unknown [facility] Work Phone: Clinical Summary: Scanned RO Rodolfo Summaryon 11-23-2018 endocrine ROS Complains [facility] Work Phone: endocrine system, review of, comments Diabetes [facility] Work Phone: genitourinary review of systems, E&M Denies [facility] Work Phone: Lymphocytes #/vol (Bld) Denies [facility] Work Phone: ROS cardiovascular E&M Denies Cr ystal [facility] Work Phone: ROS ENT comment Impaired Hearing Cry stal [facility] Work Phone: ROS ENT E&M Complains [facility] Work Phone: ROS gastrointestinal E&M Denies [facility] Work Phone: ROS general E&M Denies [facility] Work Phone: ROS musculoskeletal E&M Denies [facility] Work Phone: ROS neurological E&M Denies Ayla akua [facility] Work Phone: ROS psychiatric E&M Denies Cryst al [facility] Work Phone: ROS Pulmonary comment Shortness Of Breath [facility] Work Phone: ROS pulmonary E&M Complains [facility] Work Phone: ROS skin E&M Denies [facility] Work Phone: Office Visit: New - 1st visi t with practice, Rm:on 11-23-2018 NEGATED: Highlighted rowProtein mass conc Done [facility] Work Phone: NEGATED: Highlighted rowTobacco smoking status NHIS Tobacco smoking status AZIS [facility] Work Phone: NEGATED: Highlighted rowxray history of the left thumb on 11/16/2018 at [facility] Work Phone: Basic Metabolic Panelon -2 Anion gap molar conc 9 Normal [facility] Comment on above: Performed By: #### H ELANA SINGLETON, BMP3 #### [facility] [address] [place] [address] Calcium mass conc 9.1 mg/dL Normal 8.4-10.4 [facility] Comment on above: Performed By: #### Cheyanne SINGLETON PT, BMP3 #### [place] [address] [place] [address] CO2 molar conc 27 mmol/L Normal 22-30 [facility] Comment on above: Performed By: #### Cheyanne SINGLETON PT, BMP3 #### [place] [address] [place] [address] Glucose mass conc 90 mg/dL Normal 70-100 [facility] Comment on above: Performed By: #### Cheyanne SINGLETON PT, BMP3 #### [place] [address] [place] [address] Urea nitrogen mass conc 35 mg/dL High 7-20 [facility] Comment on above: Performed By: #### H ELANA SINGLETON, BMP3 #### [place] [address] [place] [address] Creatinine mass conc 1.72 mg/dL High 0.52-1.25 [facility] Comment on above: Performed By: #### Cheyanne SINGLETON PT, BMP3 #### [place] [address] [place] [address] GFR/1.73 sq M predicted among blacks MDRD vol rate/area (S/P/Bld) 46.9 mL/min/{1.73_m2} Normal >60 [facility] Comment on above: Performed By: #### Cheyanne SINGLETON PT, BMP3 #### [place] [address] [place] [address] GFR/1.73 sq M predicted among non-blacks MDRD vol rate/area (S/P/Bld) 38.7 mL/min/{1.73_m2} Normal >60 [facility] Comment on above: Result Comment: Sour ce- MDRD equation with creatinine calibration to IDMS(NKDEP) eGFR not recommended for drug dose adjustment Performed By: #### H ELANA SINGLETON, BMP3 #### [facility] [address] [place] [address] Chloride molar conc 107 mmol/L Normal 98-107 [facility] Comment on above: Performed By: #### H ELANA SINGLETON, BMP3 #### [facility] [address] [place] [address] Potassium molar conc 3.5 mmol/L Normal 3.5-5.1 [facility] Comment on above: Performed By: #### H ELANA SINGLETON, BMP3 #### [facility] [address] [place] [address] Sodium molar conc 143 mmol/L Normal 135-145 [facility] Comment on above: Performed By: #### H ELANA SINGLETON, BMP3 #### [facility] [address] [place] [address] CR Hand Complete 3+ Views Le fton 11-16-2018 CR Hand Complete 3+ Views Left Patient Name: BRIAN JOSHI Diagnostic Radiology Exam Date/Time 11/16/2018 17:01:59 EST Exam CR Hand Complete 3+ Views Left Ordering Physician PITA HAMILTON, VIDHYA Michelle Accession Number [id number] CPT4 Codes 70504 () Reason For Exam amputation left thumb [...] Time: 11/16/2018 5:18 Normal [facility] ED Provider Noteon 9 Protein mass conc Emergency Department Encounter [facility] EMERGENCY DEPT Patient: Brian Joshi : 1940 Date of Evaluation: 11/16/2018 ED Supervising Physician: ARJUN CALLEJAS MD THIS WILL SERVE MY FREDDY SUPERVISORY NOTE: I independently examined and evaluated Brian Joshi. HISTORY: In brief, Brian Joshi is a 78 y.o. male that presents to the emergency department amputation of left thumb. It occurred on a table saw earlier today he went to [facility] they apparently spoke with hand and [...] are mis-transcribed.) ARJUN CALLEJAS MD [employer] Arjun Callejas MD 11/16/18 1628 [facility] Protein mass conc Emergency DepartmentEncounter [facility] EMERGENCY [facility] Patient: Brian Joshi : 1940 Date of Evaluation: 11/16/2018 ED FREDDY Provider: Vidhya Hamilton PA-C EDcare was supervised by Dr. Callejas who independently examined and evaluated the patient. Please see their attestation note for further details. Chief Complaint Chief Complaint Patient presents with ? Other LAC LEFT THUMB;SENT FROM [facility] Brian Joshi is a 78 y.o. male whopresents to the emergency department For evaluation of a LEFT thumb amputation after initially being evaluated in sent from [facility]. He was using a table saw approximately noon today, when his LEFT hand slipped beneath the blade. He believes that he cut it off at the interphalangeal joint. He was told to come directly to [facility] emergency department. Review of paperwork and blue slip with patient indicates that he was treated with Ancef 1 g, morphine, Zofran. Patient is unaware when his last tetanus vaccine was, and did not receive one in the emergency department at [facility]. Arrives with partially amputated thumb, on ice in a bag. Son at bedside. Duration of symptoms 4 hours. Location of symptoms of thumb. Describes as pounding, with currently 2 out of 10, previously 10 out of 10 in severity. No specific aggravating factors, pain was significantly improved with morphine administered at [facility]. ROS: Review of Systems Constitutional: Negative [...] otherwise acutely negative except as in the [place]. Past History Past Medical History: Diagnosis Date ? BPH (benign prostatic hypertrophy) ? CAD (coronary artery disease) 2009 LAD stent (Black) - neg stress test 02/05 and 02/08 ? Chronic renal failure, stage 3 (moderate) (HCC) 2013 Nephrology, [facility], [place] ? Eczema ? ED (erectile dysfunction) ? Essential hypertension 1982 mod JOSE C per [facility] (no intervention) - neg MRA renals ? Family history of colon cancer mother ? Family history of prostate cancer 2 brothers ? H/O colonoscopy 03/2015 Dr. Araya- due 2019 ? Hypercholesterolemia with hypertriglyceridemia LDL ? [...] and 3 dtrs, retired in 2002 from [employer]. 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 ED Course and MDM In brief, Brian Joshi shanique 78 y.o. male who presented to the emergency department For evaluation of LEFT thumb amputation that occurred earlier this afternoon while using a table saw. Initially seen and evaluated at [facility], transferred to this emergency Department for [...] on 11/16/18 at 2036 YAHIR WADDELL 11/16/18 1758 11/16/18 1758 lidocaine 1 % injection Comments: Pan Dorsey: cabinet override Last MAR action: Given by Other - by ETHNA MANJARREZ on 11/16/18 at 1810 11/16/18 1730 11/16/18 1721 ceFAZolin (ANCEF) 1 g in dextrose 5 % 50 mL IVPB (premix) ONCE Last MAR action: Stopped - by PARUL ERIC on 11/16/18 at 2038 VIDHYA HAMILTON 11/16/18 17311/16/18 1721 Kctqjhm-Rdiswo-Josce Pertussis (BOOSTRIX) injection 0.5 mL ONCE Last MAR action: Given - by ETHAN MANJARREZ on 11/16/18 at 1755 VIDHYA HAMLITON 11/16/18 17311/16/18 1721 morphine (PF) injection 2 mg ONCE Last MAR action: Given - by ETHAN MANJARREZ on 11/16/18 at 1750 VIDHYA HAMILTON 11/16/18 17311/16/18 1726 dextrose injection 25 g ONCE Last DEC action: Given - by [...] PA-C 11/23/18 1658 Normal [facility] Glucose,Bedsideon 11-16-2018 Glucose mass conc 108 mg/dL High 70-100 [facility] Comment on above: Result Comment: Test performed by glucose meter. Results may be 10%-15% lower than serum/plasma values. (CLIA ID [id number]) Performed By: #### B GLU #### [facility] [employer] [address] [place] [address] Glucose mass conc 63 mg/dL Low 70-100 [facility] Comment on above: Result Comment: Test performed by glucose meter. Results may be 10%-15% lower than serum/plasma values. (CLIA ID [id number]) Performed By: #### B GLU #### [address] [address] Hemogramon 11-16-2018 Erythrocyte distribution width Ratio (RBC) 13.8 % Normal 11.5-14.5 [facility] Comment on above: Performed By: #### H EMOG, PT, BMP3 #### [facility] [address], [place] Hematocrit Volume Fraction (Bld) 41.2 % Normal 40.0-52.0 [facility] Comment on above: Performed By: #### H EMOG, PT, BMP3 #### [facility] [address], [place] Hemoglobin mass conc (Bld) 13.4 g/dL Normal 13.0-18.0 [facility] Comment on above: Performed By: #### H EMOG, PT, BMP3 #### [place] [address] [address] [place], [place] MCH Entitic mass (RBC) 29.9 pg Normal 26.0-34.0 [facility] Comment on above: Performed By: #### H EMOG, PT, BMP3 #### [place] [address], [place] MCHC mass conc (RBC) 32.5 % Normal 32.0-36.0 [facility] Comment on above: Performed By: #### H EMOG, PT, BMP3 #### [place] [address], [place] MCV Entitic volume (RBC) 91.9 fL Normal 80.0-98.0 [facility] Comment on above: Performed By: #### H EMOG, PT, BMP3 #### [place] [address] [place], [place] Platelet mean volume Entitic volume (Bld) 8.5 fL Normal 7.4-10.[address] [facility] Comment on above: Performed By: #### H EMOG, PT, BMP3 #### [place] [address] [place], [place] Platelets #/vol (Bld) 335 10*3/uL Normal 140-440 [facility] Comment on above: Performed By: #### H EMOG, PT, BMP3 #### [facility] [address], [place] RBC #/vol (Bld) 4.49 10*6/uL Normal 4.40-5.90 [facility] Comment on above: Performed By: #### H EMOG, PT, BMP3 #### [facility] [employer] [address] WBC #/vol (Bld) 13.3 10*3/uL High 3.6-10.7 [facility] Comment on above: Performed By: #### H EMOG, PT, BMP3 #### [address] Prothrombin Timeon 9 INR Coag RelTime (PPP) 0.9 Normal 0.9-1.1 [facility] Comment on above: Result Comment: Tigre [...] By: #### H EMOG, PT, BMP3 #### [address] Prothrombin time (PT) Coag time (PPP) 10.0 s Normal 9.0-12.0 [facility] Comment on above: Result Comment: . Performed By: #### H EMOG, PT, BMP3 #### [address] TS GELon 11-16-2018 TS GEL ABO Group: A Rh, Gel: NEG Antibody Screen Gel: NEG Normal [facility] Comment on above: Performed By: #### H EMOG, BMP3, PT #### The performing lab is in the report. BMPon 05-10-2018 Anion gap 3 molar conc 11 mmol/L Normal 5-16 [facility] Comment on above: Order Comment: Aguilar s: M Performed By: #### L 500.39642, L500.70336 ####[facility] [id number] [place], [place] [address]Wm# [phone] Calcium mass conc 8.9 mg/dL Normal 8.5-10.1 [facility] Comment on above: Order Comment: Harvinderu s: M Performed By: #### L 500.74250, L500.56790 ####[facility] [id number] [place], [place] [address]Pf# [phone] Chloride molar conc 109 mmol/L High 98-107 [facility] Comment on above: Order Comment: Campu s: M Performed By: #### L 500.27547, L500.63985 ####[facility] [id number] [place], [place] [address]Fx# [phone] CO2 molar conc 23 mmol/L Normal 21-32 [facility] Comment on above: Order Comment: Campu s: M Performed By: #### L 500.48248, L500.13273 ####[facility] [id number] [place] [address]Rp# [phone] Creatinine mass conc 2.020 mg/dL High 0.670-1 .17 0 [facility] Comment on above: Order Comment: Harvinderu s: M Result Comment: Temi ents receiving either N-Acetylcysteine (NAC) orMetamizole prior to venipuncture, may have falsely depressedresults. Performed By: #### L 500.80293, L500.27240 ####[facility] [id number] [place], [place] [address]Ph# [phone] Glucose mass conc 66 mg/dL Low 70-100 [facility] Comment on above: Order Comment: Harvinderu s: M Result Comment: 70-1 00- Normal Fasting; 100-125 Impaired Fasting; greaterthan 126 on more than one result- Diabetes. ADA guidelines.Results may be falsely elevated after the administration ofSulfapyridine.Results may be falsely depressed after the administration ofSulfasalazine. Performed By: #### L 500.65520, L500.22249 ####[facility] [id number] [place], [place] [address]Te# [phone] Potassium molar conc 3.6 mmol/L Normal 3.5-5.1 [facility] Comment on above: Order Comment: Campu s: M Performed By: #### L 500.27384, L500.14364 ####[facility] [id number] [place], [place] [address]Xy# [phone] Sodium molar conc 143 mmol/L Normal 136-145 [facility] Comment on above: Order Comment: Campu s: M Performed By: #### L 500.36806, L500.35800 ####[facility] [id number] [place], [place] [address]Qm# [phone] Urea nitrogen mass conc 39 mg/dL High 7-26 [facility] Comment on above: Order Comment: Campu s: M Performed By: #### L 500.59602, L500.68906 ####[facility] [id number] [place] [address]Ox# [phone] Urea nitrogen/Creatinine mass ratio 19 mg/mg Normal 15-24 [facility] Comment on above: Order Comment: Campu s: M Performed By: #### L 500.83053, L500.49660 ####[facility] [id number] [place] [address]As# [phone] GFR ESTon 05-10-2018 IF AMER 39 ML/MIN Normal [facility] Comment on above: Order Comment: Campu s: M Performed By: #### L 500.60310, L500.56086 ####[facility] [id number] [place] [address]Cs# [phone] IF non-AFR AMER 32 ML/MIN Normal [facility] Comment on above: Order Comment: Campu s: M Performed By: #### L 500.92218, L500.06185 ####[facility] [id number] [place], [place] [address]Er# [phone] GLUCOSE METERon 05-10-2018 Glucose mass conc 116 mg/dL Normal 85-125 [facility] Glucose mass conc 71 mg/dL Low 85-125 [facility] ORon 05-10-2018 OPERATIVE REPORT Normal [facility] OR DATE OF SERVICE: 05/10/2018PREOPERATIVE DIAGNOSIS: [...] atphysiologic pressure dexamethasone was administered subconjunctivally inferiorly. [facility] PATIENT NAME: LUIS JOSHI Alyce [place] MEDICAL REC #: [id number], [place] [address] DATE:DISCHARGE DATE:OPERATIVE REPORT ATTENDING PHY: Osorio Acharya MDThe lid speculum and drapes were removed. Atropine drops and Maxitrol ointment wereplaced. A patch and shield were placed. ____Osorio Acharya, GWEN/[id number]: 05/10/2018 09:07DT: 05/10/2018 09:43SSI File#: [id number] #: [id number]/Reviewed by07/12/18 1225 JULY [facility] PATIENT NAME: LUIS JOSHI Alyce Coto MEDICAL REC #: [id number], [place] [address] DATE:DISCHARGE DATE:OPERATIVE REPORT ATTENDING PHY: Osorio Acharya MD Normal [facility] Basic Metabolic Panelon 03-0 Calcium mass conc 9.5 mg/dL Normal 8.4-10.2 [facility] Comment on above: Performed By: #### H MURPHY SINGLETON3, PT #### The performing lab is in the report. Anion gap molar conc 13 mmol/L Normal [facility] Comment on above: Performed By: #### H MURPHY SINGLETON3, PT #### The performing lab is in the report. CO2 molar conc 24 mmol/L Normal 22-30 [place] [facility] Comment on above: Performed By: #### H MURPHY SINGLETON3, PT #### The performing lab is in the report. Creatinine mass conc 1.86 mg/dL High 0.52-1.25 [facility] Comment on above: Performed By: #### H MURPHY SINGLETON3, PT #### The performing lab is in the report. GFR/1.73 sq M predicted among blacks MDRD vol rate/area (S/P/Bld) 42.9 mL/min/{1.73_m2} Normal >60 [facility] Comment on above: Performed By: #### H MURPHY SINGLETON3, PT #### The performing lab is in the report. GFR/1.73 sq M predicted among non-blacks MDRD vol rate/area (S/P/Bld) 35.4 mL/min/{1.73_m2} Normal >60 [facility] Comment on above: Result Comment: Sour ce- MDRD equation with creatinine calibration to IDMS(NKDEP) eGFR not recommended for drug dose adjustment Performed By: #### MURPHY CARTER3, PT #### The performing lab is in the report. Glucose mass conc 90 mg/dL Normal 70-100 [facility] Comment on above: Performed By: #### MURPHY CARTER3, PT #### The performing lab is in the report. Urea nitrogen mass conc 41 mg/dL High 7-20 [facility] Comment on above: Performed By: #### MURPHY CARTER3, PT #### The performing lab is in the report. Chloride molar conc 106 mmol/L Normal 98-107 [facility] Comment on above: Performed By: #### MURPHY CARTER3, PT #### The performing lab is in the report. Potassium molar conc 4.3 mmol/L Normal 3.5-5.1 [facility] Comment on above: Performed By: #### H MURPHY SINGLETON3, PT #### The performing lab is in the report. Sodium molar conc 144 mmol/L Normal 137-145 [facility] Comment on above: Performed By: #### H MANI BMP3, PT #### The performing lab is in the report. Hemogramon 12-22-2017 Erythrocyte distribution width Ratio (RBC) 13.5 % Normal 11.5-14.5 [facility] Comment on above: Performed By: #### H MANI BMP3, PT #### The performing lab is in the report. Hematocrit Volume Fraction (Bld) 40.5 % Normal 40.0-52.0 [facility] Comment on above: Performed By: #### H MURPHY SINGLETON3, PT #### The performing lab is in the report. Hemoglobin mass conc (Bld) 13.1 g/dL Normal 13.0-18.0 [facility] Comment on above: Performed By: #### MURPHY CARTER3, PT #### The performing lab is in the report. MCH Entitic mass (RBC) 29.8 pg Normal 26.0-34.0 [facility] Comment on above: Performed By: #### MURPHY CARTER3, PT #### The performing lab is in the report. MCHC mass conc (RBC) 32.4 % Normal 32.0-36.0 [facility] Comment on above: Performed By: #### MURPHY CARTER3, PT #### The performing lab is in the report. MCV Entitic volume (RBC) 91.9 fL Normal 80.0-98.0 [facility] Comment on above: Performed By: #### H MANI BMP3, PT #### The performing lab is in the report. Platelet mean volume Entitic volume (Bld) 10.2 fL Normal 7.4-10.4 [facility] Comment on above: Performed By: #### Cheyanne SINGLETON BMP3, PT #### The performing lab is in the report. Platelets #/vol (Bld) 360 10*3/uL Normal 140-440 [facility] Comment on above: Performed By: #### H EMOG, BMP3, PT #### The performing lab is in the report. RBC #/vol (Bld) 4.41 10*6/uL Normal 4.40-5.90 [facility] Comment on above: Performed By: #### H EMOG, BMP3, PT #### The performing lab is in the report. WBC #/vol (Bld) 12.6 10*3/uL High 3.6-10.7 [facility] Comment on above: Performed By: #### H EMOG, BMP3, PT #### The performing lab is in the report. Prothrombin Timeon 8 INR Coag RelTime (PPP) 0.9 {INR} Normal 0.9-1.1 [facility] Comment on above: Result Comment: Tigre [...] prevent Myocardial Infarction Performed By: #### H MNAI BMP3, PT #### The performing lab is in the report. Prothrombin time (PT) Coag time (PPP) 9.9 s Normal 9.0-12.0 [facility] Comment on above: Result Comment: . Performed By: #### H EMOG BMP3, PT #### The performing lab is in the report. Culture, urine Bacteria identified Cx Nom (U) Culture exhibits no growth. [facility] Work Phone: Vital Signs Date Time Vital Sign Value Performing Clinician Facility 04-28-2025 12:52-0400 Body temperature 97.6 [degF] Dr. Jose Clarke DO Work Phone: [facility] 04-28-2025 12:52-0400 Diastolic blood pressure 64 mm[Hg] Dr. Jose Clarke DO Work Phone: [facility] 04-28-2025 12:52-0400 Heart rate 71 /min Dr. Jose Clarke DO Work Phone: [facility] 04-28-2025 12:52-0400 Respiratory rate 16 /min Dr. Jose Clarke DO Work Phone: [facility] 04-28-2025 12:52-0400 SaO2% (BldA) [Mass fraction] 99 % Dr. Jose Clarke DO Work Phone: [facility] 04-28-2025 12:52-0400 Systolic blood pressure 138 mm[Hg] Dr. Jose Clarke DO Work Phone: [facility] 04-28-2025 10:07-0400 Body height 182.[address] Jose Clarke DO Work Phone: [facility] 04-28-2025 10:07-0400 Body mass index (BMI) [Ratio] 25.9 kg/m2 Dr. Jose Clarke DO Work Phone: [facility] 04-28-2025 10:07-0400 Body weight [address] Jose Clarke DO Work Phone: [facility] 03-26-2025 09:36-0400 Body height 182.9 cm Jose Clarke DO Work Phone: [facility] 03-26-2025 09:36-0400 Body mass index (BMI) [Ratio] 24.14 kg/m2 Jose Clarke DO Work Phone: [facility] 03-26-2025 09:36-0400 Body temperature 98.71 [degF] Jose Clarke DO Work Phone: [facility] 03-26-2025 09:36-0400 Body weight 80.74 kg Jose Clarke DO Work Phone: [facility] 03-26-2025 09:36-0400 Diastolic blood pressure 55 mm[Hg] Jose Clarke DO Work Phone: [facility] 03-26-2025 09:36-0400 Heart rate 76 /min Jose Clarke DO Work Phone: [facility] 03-26-2025 09:36-0400 SaO2% (BldA) [Mass fraction] 98 % Jose Clarke DO Work Phone: [facility] 03-26-2025 09:36-0400 Systolic blood pressure 121 mm[Hg] Jose Clarke DO Work Phone: [facility] 12-21-2024 07:49-0500 Body height 182.9 cm Jose Marcusa DO Work Phone: [facility] 12-21-2024 07:49-0500 Body mass index (BMI) [Ratio] 24.14 kg/m2 Jose Clarke DO Work Phone: [facility] 12-21-2024 07:49-0500 Body temperature 98.49 [degF] Jose Clrake DO Work Phone: [facility] 12-21-2024 07:49-0500 Body weight 80.74 kg Jose Clarke DO Work Phone: [facility] 12-21-2024 07:49-0500 Diastolic blood pressure 66 mm[Hg] Jose Clarke DO Work Phone: [facility] 12-21-2024 07:49-0500 Heart rate 73 /min Jose Clarke DO Work Phone: [facility] 12-21-2024 07:49-0500 SaO2% (BldA) [Mass fraction] 97 % Jose Clarke DO Work Phone: [facility] 12-21-2024 07:49-0500 Systolic blood pressure 135 mm[Hg] Jose Marcusa DO Work Phone: [facility] 10-30-2024 08:17-0500 Body height 182.9 cm Jose Clarke DO Work Phone: [facility] 10-30-2024 08:17-0500 Body mass index (BMI) [Ratio] 23.6 kg/m2 Jose Clarke DO Work Phone: [facility] 10-30-2024 08:17-0500 Body temperature 98.6 [degF] Jose Clarke DO Work Phone: [facility] 10-30-2024 08:17-0500 Body weight 78.93 kg Jose Clarke DO Work Phone: [facility] 10-30-2024 08:17-0500 Diastolic blood pressure 58 mm[Hg] Jose Clarke DO Work Phone: [facility] 10-30-2024 08:17-0500 Heart rate 78 /min Jose Clarke DO Work Phone: [facility] 10-30-2024 08:17-0500 SaO2% (BldA) [Mass fraction] 96 % Jose Clarke DO Work Phone: [facility] 10-30-2024 08:17-0500 Systolic blood pressure 123 mm[Hg] Jose Clarke DO Work Phone: [facility] 07-03-2024 08:21-0400 Body height 185.4 cm Jose Clarke DO Work Phone: [facility] 07-03-2024 08:21-0400 Body mass index (BMI) [Ratio] 23.35 kg/m2 Jose Clarke DO Work Phone: [facility] 07-03-2024 08:21-0400 Body temperature 97.81 [degF] Jose Clarke DO Work Phone: [facility] 07-03-2024 08:21-0400 Body weight 80.29 kg Jose Clarke DO Work Phone: [facility] 07-03-2024 08:21-0400 Diastolic blood pressure 70 mm[Hg] Jose Marcusa DO Work Phone: [facility] 07-03-2024 08:21-0400 Heart rate 67 /min Jose Clarke DO Work Phone: [facility] 07-03-2024 08:21-0400 SaO2% (BldA) [Mass fraction] 99 % Jose Clarke DO Work Phone: [facility] 07-03-2024 08:21-0400 Systolic blood pressure 138 mm[Hg] Jose Clarke DO Work Phone: [facility] 02-07-2024 11:26-0400 Diastolic blood pressure 78 mm[Hg] Jose Clarke DO Work Phone: [facility] 02-07-2024 11:26-0400 Heart rate 68 /min Jose Clarke DO Work Phone: [facility] 02-07-2024 11:26-0400 Systolic blood pressure 136 mm[Hg] Jose Clarke DO Work Phone: [facility] 02-07-2024 10:49-0400 Body height 182.9 cm Jose Clarke DO Work Phone: [facility] 02-07-2024 10:49-0400 Body mass index (BMI) [Ratio] 24.55 kg/m2 Jose Clarke DO Work Phone: [facility] 02-07-2024 10:49-0400 Body temperature 97.7 [degF] Jose Clarke DO Work Phone: [facility] 02-07-2024 10:49-0400 Body weight 82.1 kg Jose Clarke DO Work Phone: [facility] 02-07-2024 10:49-0400 SaO2% (BldA) [Mass fraction] 95 % Jose Clarke DO Work Phone: [facility] 11-08-2023 08:21-0500 Body height 182.9 cm Jose Clarke DO Work Phone: [facility] 11-08-2023 08:21-0500 Body mass index (BMI) [Ratio] 24.01 kg/m2 Jose Clarke DO Work Phone: [facility] 11-08-2023 08:21-0500 Body temperature 98.2 [degF] Jose Petrilla DO Work Phone: [facility] 11-08-2023 08:21-0500 Body weight 80.29 kg Jose Clarke DO Work Phone: [facility] 11-08-2023 08:21-0500 Diastolic blood pressure 60 mm[Hg] Jose Clarke DO Work Phone: [facility] 11-08-2023 08:21-0500 Heart rate 91 /min Jose Clarke DO Work Phone: [facility] 11-08-2023 08:21-0500 SaO2% (BldA) [Mass fraction] 97 % Jose Clarke DO Work Phone: [facility] 11-08-2023 08:21-0500 Systolic blood pressure 123 mm[Hg] Jose Clarke DO Work Phone: [facility] 02-14-2023 12:21-0400 Body height 182.9 cm Jose Clarke DO Work Phone: [facility] 02-14-2023 12:21-0400 Body mass index (BMI) [Ratio] 23.6 kg/m2 Jose Clarke DO Work Phone: [facility] 02-14-2023 12:21-0400 Body temperature 98.4 [degF] Jose Clarke DO Work Phone: [facility] 02-14-2023 12:21-0400 Body weight 78.93 kg Jose Clarke DO Work Phone: [facility] 02-14-2023 12:21-0400 Diastolic blood pressure 65 mm[Hg] Jose Clarke DO Work Phone: [facility] 02-14-2023 12:21-0400 Heart rate 70 /min Jose Clarke DO Work Phone: [facility] 02-14-2023 12:21-0400 SaO2% (BldA) [Mass fraction] 98 % Jose Clarke DO Work Phone: [facility] 02-14-2023 12:21-0400 Systolic blood pressure 134 mm[Hg] Jose Clarke DO Work Phone: [facility] 02-03-2023 12:41-0400 Diastolic blood pressure 70 mm[Hg] [facility] 02-03-2023 12:41-0400 Systolic blood pressure 160 mm[Hg] [facility] 02-03-2023 11:12-0400 Heart rate 90 /min [facility] 02-03-2023 10:41-0400 Body height 172.72 cm [facility] 02-03-2023 10:41-0400 Body mass index (BMI) [Ratio] 26.1 kg/m2 [facility] 02-03-2023 10:41-0400 Body temperature 97.4 [degF] [facility] 02-03-2023 10:41-0400 Body weight 77.9 kg [facility] 02-03-2023 10:41-0400 Respiratory rate 15 /min [facility] 02-03-2023 10:41-0400 SaO2% (BldA) [Mass fraction] 98 % [facility] 09-13-2022 13:45-0500 Body temperature 98.4 [degF] Dr. Jose Clarke Work Phone: [facility] Work Phone: 09-13-2022 13:45-0500 Diastolic blood pressure 58 mm[Hg] Dr. Jose Clarke Work Phone: [facility] Work Phone: 09-13-2022 13:45-0500 Heart rate 71 /min Dr. Jose Clarke Work Phone: [facility] Work Phone: 09-13-2022 13:45-0500 Respiratory rate 18 /min Dr. Jose Clarke Work Phone: [facility] Work Phone: 09-13-2022 13:45-0500 SaO2% (BldA) [Mass fraction] 98 % Dr. Jose Clarke Work Phone: [facility] Work Phone: 09-13-2022 13:45-0500 Systolic blood pressure 127 mm[Hg] Dr. Jose Clarke Work Phone: [facility] Work Phone: 09-08-2022 11:17-0500 Body height 182.[address] Jose Clarke Work Phone: [facility] Work Phone: 09-08-2022 11:17-0500 Body weight 81.[address] Jose Clarke Work Phone: [facility] Work Phone: 09-01-2022 16:56-0500 SaO2% (BldA) [Mass fraction] 96 % Dr. Jose Clarke Work Phone: [facility] Work Phone: 09-01-2022 15:02-0500 Diastolic blood pressure 51 mm[Hg] Dr. Jose Clarke Work Phone: [facility] Work Phone: 09-01-2022 15:02-0500 Heart rate 80 /min Dr. Jose Clarke Work Phone: [facility] Work Phone: 09-01-2022 15:02-0500 Systolic blood pressure 123 mm[Hg] Dr. Jose Clarke Work Phone: [facility] Work Phone: 09-01-2022 13:28-0500 Body temperature 97 [degF] Dr. Jose Clarke Work Phone: [facility] Work Phone: 09-01-2022 13:28-0500 Inhaled oxygen flow rate 2 L/min Dr. Jose Clarke Work Phone: [facility] Work Phone: 09-01-2022 13:28-0500 Respiratory rate 16 /min Dr. Jose Clarke Work Phone: [facility] Work Phone: 09-01-2022 05:56-0500 Body weight 81.[address] Jose Clarke Work Phone: [facility] Work Phone: 08-29-2022 23:31-0500 Body mass index (BMI) [Ratio] 23.7 kg/m2 Dr. Jose Clarke Work Phone: [facility] Work Phone: 08-28-2022 19:24-0400 Body temperature 98.8 [degF] [facility] Work Phone: 08-28-2022 19:24-0400 Diastolic blood pressure 62 mm[Hg] [facility] Work Phone: 08-28-2022 19:24-0400 Heart rate 88 /min [facility] Work Phone: 08-28-2022 19:24-0400 Respiratory rate 18 /min [facility] Work Phone: 08-28-2022 19:24-0400 SaO2% (BldA) [Mass fraction] 96 % [facility] Work Phone: 08-28-2022 19:24-0400 Systolic blood pressure 153 mm[Hg] [facility] Work Phone: 08-28-2022 15:54-0400 Body height 185.42 cm [facility] Work Phone: 08-28-2022 15:54-0400 Body mass index (BMI) [Ratio] 22.3 kg/m2 [facility] Work Phone: 08-28-2022 15:54-0400 Body weight 76.65 kg [facility] Work Phone: 04-23-2021 13:15-0400 Diastolic blood pressure [...] 185.4 cm Bucky Radha DO Work Phone: [facility] Work Phone: 04-23-2021 09:12-0400 Body mass index (BMI) [Ratio] 22.43 kg/m2 Bucky Radha DO Work Phone: [facility] Work Phone: 04-23-2021 09:12-0400 Body weight 77.11 kg Bucky Radha DO Work Phone: [facility] Work Phone: NEGATED: Highlighted [id number] 11:25-0500 BMI (Body Mass Index) 26.64 kg/m2 Arlene Neely LPN [facility] Work Phone: NEGATED: Highlighted [id number] 11:25-0500 BP Diastolic 69 mm[Hg] Arlene Neely [employer] [facility] Work Phone: NEGATED: Highlighted [id number] 11:25-0500 BP Diastolic 75 mm[Hg] Arlene Neely [employer] [facility] Work Phone: NEGATED: Highlighted [id number] 11:25-0500 BP Systolic 164 mm[Hg] Arlene Florinda [employer] [facility] Work Phone: NEGATED: Highlighted [id number] 11:25-0500 BP Systolic 159 mm[Hg] Arlene Blackert [employer] [facility] Work Phone: NEGATED: Highlighted [id number] 11:25-0500 Height 181.61 cm Arlenejuliet Neely [employer] [facility] Work Phone: NEGATED: Highlighted [id number] 11:25-0500 Height 182 cm Arlene Blackdario [employer] [facility] Work Phone: NEGATED: Highlighted [id number] 11:25-0500 Pulse (Heart Rate) 69 /min Arlene Neely [employer] [facility] Work Phone: NEGATED: Highlighted [id number] 11:25-0500 Weight 87.54 kg Arlene Neely [employer] [facility] Work Phone: NEGATED: Highlighted [id number] 11:25-0500 Weight 88 kg Arlene Blackert [employer] [facility] Work Phone: Encounters Encounter Date Encounter Type Care Provider Facility Start: 04-28-2025 Evaluation and manag ement of inpatient Dr. Juventino Patel MD -[facility] 3 Work Phone: Start: 03-26-2025 End: 03-26-2025 Office outpatient visit 25 minutes Jose Clarke DO Work Phone: [facility] Comment on above: Type 2 diabetes yanely itus with stage 3b chronic kidney disease, with long-term current use of insulin (HCC) (Primary Dx); Coronary artery disease involving [place] coronary artery of [place] heart without angina pectoris; Essential hypertension; Hypercholesterolemia with hypertriglyceridemia; Balanitis; Stage 3b chronic kidney disease (HCC) Start: 03-26-2025 End: 03-26-2025 ambulatory [facility] Start: 02-27-2025 End: 02-27-2025 Orders Only Jose Clarke DO Work Phone: [facility] Start: 02-11-2025 End: 02-12-2025 Refill Jose Clarke DO Work Phone: [facility] Start: 12-21-2024 End: 12-21-2024 Office outpatient visit 25 minutes Jose Clarke DO Work Phone: [facility] Comment on above: Vertigo (Primary Dx) ; Essential hypertension; Stage 3b chronic kidney disease (HCC); Coronary artery disease involving [place] coronary artery of [place] heart without angina pectoris; Hypercholesterolemia with hypertriglyceridemia; Right thalamic stroke (HCC); Hypoglycemic event due to diabetes (HCC); Other constipation Start: 12-21-2024 End: 12-21-2024 ambulatory [facility] Start: 12-17-2024 End: 12-17-2024 Emergency department patient visit [facility] Start: 12-17-2024 End: 12-18-2024 ambulatory Harvey Flores Facility:[facility] Start: 11-13-2024 End: 11-21-2024 Patient encounter procedure Paz Moffett RN [facility] al Communication Start: 11-13-2024 End: 11-13-2024 Office outpatient visit 15 minutes Jose Clarke DO Work Phone: [facility] Comment on above: Adverse effect of or al hypoglycemic drug, initial encounter (Primary Dx); Type 2 diabetes mellitus with stage 3b chronic kidney disease, with long-term current use of insulin (HCC) Start: 11-13-2024 End: 11-21-2024 ambulatory Paz Moffett RN [facility] Clinical Communication Start: 11-08-2024 End: 01-18-2025 Orders Only Jose Clarke DO Work Phone: [facility] Comment on above: Medication Question Start: 11-05-2024 End: 11-05-2024 Telephone encounter Jose Clarke DO Work Phone: [facility] Comment on above: Results Start: 10-30-2024 End: 10-30-2024 Office outpatient visit 25 minutes Jose Clarke DO Work Phone: [facility] Comment on above: Type 2 diabetes yanely itus with stage 3b chronic kidney disease, without long-term current use of insulin (HCC) (Primary Dx); Hypercholesterolemia with hypertriglyceridemia; Stage 3b chronic kidney disease (HCC); Coronary artery disease involving [place] coronary artery of [place] heart without angina pectoris; Essential hypertension; Chronic left-sided lumbar radiculopathy; Left foot drop Start: 10-30-2024 End: 10-30-2024 ambulatory JOSE TORRESEvy [facility] Start: 10-19-2024 End: 01-18-2025 Transcribe Orders Radha Torres MD Work Phone: [facility] Comment on above: Chronic kidney disea se, stage 3a (HCC) (Primary Dx); Secondary hyperparathyroidism of renal origin (HCC) Start: 09-19-2024 End: 09-19-2024 Refill Jose Clarke DO Work Phone: [facility] Start: 09-17-2024 End: 09-17-2024 Refill Jose Clarke DO Work Phone: [facility] Start: 09-13-2024 End: 09-13-2024 Orders Only Jose Clarke DO Work Phone: [facility] Start: 09-09-2024 End: 09-11-2024 Refill Jose Clarke DO Work Phone: [facility] Start: 07-12-2024 End: 07-12-2024 Refill Jose Clarke DO Work Phone: [facility] Start: 07-03-2024 End: 07-03-2024 Assay of hemosiderin, quant Jose Clarke DO Work Phone: [facility] Start: 07-03-2024 End: 07-03-2024 Patient encounter procedure Jose Clarke DO Work Phone: [facility] Comment on above: Encounter for subseq uent annual wellness visit (AWV) in Medicare patient (Primary Dx); Essential hypertension; Hypercholesterolemia with hypertriglyceridemia; Coronary artery disease involving [place] coronary artery of [place] heart without angina pectoris; Type 2 diabetes mellitus with chronic kidney disease, without long-term current use of insulin, unspecified CKD stage (HCC); Routine general medical examination at health care facility Start: 07-03-2024 End: 07-03-2024 ambulatory [facility] Start: 07-03-2024 End: 07-03-2024 Encounter for general adult medical examination without abnormal findings [facility] Start: 06-17-2024 End: 06-18-2024 Refill Jose Clarke DO Work Phone: [facility] Start: 04-03-2024 Refill Jose dowlinga DO Work Phone: [facility] Start: 02-28-2024 Refill Jose Torres lla DO Work Phone: [facility] Start: 02-13-2024 Refill Jose Torres lla DO Work Phone: [facility] Start: 02-07-2024 Telephone encounter Jose Tata Kaz etrilla DO Work Phone: [facility] Comment on above: Orders (Ortho referr al) Start: 02-07-2024 End: 02-07-2024 Office outpatient visit 15 minutes Jose Marcusa DO Work Phone: [facility] Comment on above: Type 2 diabetes yanely itus with chronic kidney disease, without long-term current use of insulin, unspecified CKD stage (HCC) (Primary Dx); Essential hypertension; Chronic left-sided lumbar radiculopathy; Skin lesion of hand; Hypercholesterolemia with hypertriglyceridemia Start: 12-21-2023 Refill Jose Torres lla DO Work Phone: [facility] Start: 12-14-2023 Refill Jose Torres lla DO Work Phone: [facility] Start: 11-13-2023 Orders Only Jose Torres lla DO Work Phone: [facility] Start: 11-08-2023 End: 11-08-2023 Office outpatient visit 25 minutes Jose Marcusa DO Work Phone: [facility] Comment on above: Type 2 diabetes yanely itus with chronic kidney disease, without long-term current use of insulin, unspecified CKD stage (HCC) (Primary Dx); Essential hypertension; Stage 3b chronic kidney disease (HCC); Hypercholesterolemia with hypertriglyceridemia; Coronary artery disease involving [place] coronary artery of [place] heart without angina pectoris; Chronic left-sided lumbar radiculopathy; Lumbar degenerative disc disease Start: 10-21-2023 Transcribe Orders Radha Torres MD Work Phone: [facility] Lab Comment on above: Chronic kidney disea se, stage 3a (HCC) (Primary Dx); Secondary hyperparathyroidism of renal origin (HCC) Start: 08-07-2023 Refill Jose Torres lla DO Work Phone: [facility] Start: 06-22-2023 Orders Only Jose Torres lla DO Work Phone: [facility] Start: 06-20-2023 Refill Jose Tata Torres lla DO Work Phone: [facility] Start: 06-19-2023 Orders Only Jose stern DO Work Phone: [facility] Start: 05-19-2023 Refill Jose stern DO Work Phone: [facility] Start: 02-16-2023 Orders Only Jose stern DO Work Phone: [facility] Start: 02-14-2023 End: 02-14-2023 Office outpatient visit 25 minutes Jose Clarke DO Work Phone: [facility] Comment on above: Acquired left foot d rop (Primary Dx); Coronary artery disease involving [place] coronary artery of [place] heart without angina pectoris; Stage 3a chronic kidney disease (HCC); Essential hypertension; Type 2 diabetes mellitus with chronic kidney disease, without long-term current use of insulin, unspecified CKD stage (HCC); Chronic left-sided lumbar radiculopathy Start: 02-03-2023 End: 02-03-2023 Emergency department patient visit [facility]-Emergency Department Start: 12-06-2022 Refill Jose stern DO Work Phone: [facility] Start: 10-27-2022 Transcribe Orders Radha Torres MD Work Phone: [facility] Laboratory Comment on above: Chronic kidney disea se, stage 3a (HCC) (Primary Dx); Secondary hyperparathyroidism of renal origin (CMS/HCC) (HCC) Start: 09-01-2022 End: 09-13-2022 Evaluation and management of inpatient Dr. Jose Clarke Work Phone: [facility]-Transitional Care Unit Start: 09-01-2022 Non-patient / Non-visit Dr. Matias Clarke Work Phone: [facility] In[facility] Physicians Start: 08-31-2022 Non-patient / Non-visit Dr. Matias Clarke Work Phone: [facility] Start: 08-30-2022 Non-patient / Non-visit Dr. Matias Clarke Work Phone: [facility] Start: 08-29-2022 Non-patient / Non-visit Dr. Matias Clarke Work Phone: [facility] Start: 08-28-2022 End: 09-01-2022 Evaluation and management of inpatient [facility]-Medical Surgical 3 Start: 03-12-2022 Non-patient / Non-visit Dr. Matias Clarke Work Phone: [facility] Start: 03-12-2022 End: 03-12-[address] Jose Clarke Work Phone: [facility]-Cardiovascul ar Services Start: 03-10-2022 End: 03-10-2022 Subsequent hospital visit by physician Jose Clarke DO Work Phone: [facility] Radiology Comment on above: Acute hip pain, left ; Acute left-sided low back pain with left-sided sciatica Start: 05-25-2021 End: 05-25-2021 Subsequent hospital visit by physician Radha Torres MD Work Phone: [facility] Start: 04-23-2021 End: 04-23-2021 Emergency department patient visit Bucky Garcia DO Work Phone: [facility] ED Comment on above: Pneumonia of right l ower lobe due to infectious organism (Primary Dx); Septicemia (HCC); Renal insufficiency; Type 2 diabetes mellitus with other specified complication, unspecified whether keno terminal operator insulin use (HCC) Start: 11-24-2020 End: 11-24-2020 Subsequent hospital visit by physician Radha Torres Work Phone: [facility] Laboratory Start: 09-01-2020 End: 09-01-2020 Subsequent hospital visit by physician Pastor Vines Work Phone: [facility] Start: 05-20-2020 End: 05-20-2020 Subsequent hospital visit by physician Radha Torres Work Phone: [facility] Start: 11-20-2019 End: 11-20-2019 Subsequent hospital visit by physician Radha Torres MD Work Phone: [facility] Start: 11-23-2018 End: 11-23-2018 Patient encounter procedure Eh Morton MD Work Phone: [facility] Work Phone: Start: 11-16-2018 Emergency department patient visit PROVIDER UNKNOWN [facility] Start: 05-10-2018 Evaluation and manag ement of inpatient Osorio Acharya Facility:[facility] Start: 05-02-2018 Patient encounter Osorio Acharya Fa cility:[facility] Start: 12-23-2017 Patient encounter procedure KELSIE RUIZ QUE [facility] Start: 12-22-2017 Patient encounter procedure KELSIE QUE [facility] Procedures Date Procedure Procedure Detail Performing Clinician Start: 04-28-[address] Jose Clarke DO Work Phone: Start: 04-28-2025 Plain chest X-ray Dr. Vibha Clarke DO Work Phone: Start: 04-28-2025 Plain x-ray of pelvi s and lower extremity Dr. Jose Clarke DO Work Phone: Start: 03-26-2025 Adult depression scr eening assessment [...] Work Phone: Start: 04-23-2021 COVID-19, RAPID Bucky Dunne Radha DO Work Phone: Start: 04-23-2021 Urnls dip stick/tabl et rgnt auto w/o microscopy Bucky Vibha Radha DO Work Phone: Start: 04-23-2021 Ct abdomen & pelvis w/o contrast material Bucky Garcia DO Work Phone: Start: 04-23-2021 Radiologic exam ches t 2 views Bucky Dunne Radha DO Work Phone: Start: 04-23-2021 Comprehensive metabo lic panel Bucky Dunne Radha DO Work Phone: Start: 04-23-2021 Ecg routine ecg w/le ast 12 lds w/i&r Bucky Hookisinger DO Work Phone: Start: 11-24-2020 Creatinine other source Radha Torres Work Phone: Start: 11-24-2020 Protein total xcpt refractometry urine Jamery Torres Work Phone: Start: 11-24-2020 Basic metabolic pane l calcium total Greysonbrittneysh R Gail Work Phone: Start: 09-01-2020 Assay of troponin quantitative Pastor Vines Work Phone: Start: 05-20-2020 Creatinine other source Buraksy Al Gail Work Phone: Start: 05-20-2020 Protein total xcpt refractometry urine Greysonmery Torres Work Phone: Start: 05-20-2020 25 hydroxy includes fractions if performed Radha Torres Work Phone: Start: 05-20-2020 Assay of parathormone J francescaaprrobin Melendez Gail Work Phone: Start: 05-20-2020 Blood count complete automated Radha Melendez Gail Work Phone: Start: 05-20-2020 Renal function panel [...] DTaP/Tdap/Td vaccine (2 - Td or Tdap) [facility] Start: 11-16-2028 DTaP/Tdap/Td vaccine (2 - Td) DTaP/Tdap/Td vaccine (2 - Td) [facility] Work Phone: Start: 11-16-2028 DTaP/Tdap/Td Vaccines (2 - Td or Tdap) DTaP/Tdap/Td Vaccines (2 - Td or Tdap) [facility] Start: 03-26-2026 Depression Screening Depression Screening [facility] Start: 10-30-2025 Depression Screening Depression Screening [facility] Start: 10-19-2025 Diabetes: Estimated Glomerular Filtration Rate for Kidney Health Diabetes: Estimated Glomerular Filtration Rate for Kidney Health [facility] Start: 07-30-2025 End: 07-30-2025 Patient encounter procedure 07/30/2025 10:20 AM EDT [facility] [address] [place] [address] Jose Clarke DO [address] [place] [address] [facility] Start: 07-09-2025 End: 07-09-2025 Patient encounter procedure [facility] Start: 07-03-2025 Depression Screening Depression Screening [facility] Start: 07-03-2025 Diabetes: Estimated Glomerular Filtration Rate for Kidney Health Diabetes: Estimated Glomerular Filtration Rate for Kidney Health [facility] Start: 06-24-2025 Influenza vaccination Influenza Vaccine (Season Ended) [facility] Start: 04-28-2025 Verification routine [facility] Start: 04-28-2025 Consultation [facility] Start: 04-28-2025 Hospital admission, emergency, from emergency room, medical nature [facility] Start: 04-28-2025 End: 04-28-2025 Admission procedure [facility] Start: 04-28-2025 Assessment of risk of venous thromboembolism [facility] Start: 04-28-2025 Urinalysis complete panel - Urine [facility] Start: 03-26-2025 End: 03-26-2026 CBC W Auto Differential panel - Blood CBC auto differential Lab Routine Type 2 diabetes mellitus with stage 3b chronic kidney disease, with long-term current use of insulin (HCC) Expected: 03/26/2025 (Approximate), Expires: 03/26/2026 [employer] Comment on above: Expected: 03/26/2025 (Approximate), Expi res: 03/26/2026 Start: 03-26-2025 End: 03-26-2026 Comprehensive metabolic 1998 panel - Serum or Plasma Comprehensive metabolic panel Lab Routine Type 2 diabetes mellitus with stage 3b chronic kidney disease, with long-term current use of insulin (HCC) Expected: 03/26/2025 (Approximate), Expires: 03/26/2026 [employer] Comment on above: Expected: 03/26/2025 (Approximate), Expi res: 03/26/2026 Start: 03-26-2025 End: 03-26-2026 Hemoglobin A1c measurement Hemoglobin A1c Lab Routine Type 2 diabetes mellitus with stage 3b chronic kidney disease, with long-term current use of insulin (HCC) Expected: 03/26/2025 (Approximate), Expires: 03/26/2026 [employer] Comment on above: Expected: 03/26/2025 (Approximate), Expi res: 03/26/2026 Start: 03-26-2025 End: 03-26-2026 Lipid 1996 panel - Serum or Plasma Lipid panel Lab Routine Type 2 diabetes mellitus with stage 3b chronic kidney disease, with long-term current use of insulin (HCC) Expected: 03/26/2025 (Approximate), Expires: 03/26/2026 [employer] Comment on above: Expected: 03/26/2025 (Approximate), Expi res: 03/26/2026 Start: 03-26-2025 End: 03-26-2026 Microalbumin/Creatinine panel in random Urine Microalbumin / creatinine, urine ratio Lab Routine Type 2 diabetes mellitus with stage 3b chronic kidney disease, with long-term current use of insulin (HCC) Expected: 03/26/2025 (Approximate), Expires: 03/26/2026 [facility] Work Phone: Comment on above: Expected: 03/26/2025 (Approximate), Expi res: 03/26/2026 Start: 03-26-2025 End: 03-26-2025 Patient encounter procedure 03/26/2025 9:40 AM EDT [facility] [address] [place] [address] Jose Clarke, [address] [place] [address] [facility] Start: 02-01-2025 End: 02-01-2025 Patient encounter procedure 02/01/2025 8:00 AM EDT Office [facility] [address] [place] [address] Jose Clarke, [address] [place] [address] [facility] Start: 10-30-2024 End: 10-30-2025 Hemoglobin A1c measurement Hemoglobin A1c Lab Routine Chronic left-sided lumbar radiculopathy Expected: 10/30/2024 (Approximate), Expires: 10/30/2025 [facility] Work Phone: Comment on above: Expected: 10/30/2024 (Approximate), Expi res: 10/30/2025 Start: 10-30-2024 End: 10-30-2025 Lipid 1996 panel - Serum or Plasma Lipid panel Lab Routine Chronic left-sided lumbar radiculopathy Expected: 10/30/2024 (Approximate), Expires: 10/30/2025 [facility] [employer] Comment on above: Expected: 10/30/2024 (Approximate), Expi res: 10/30/2025 Start: 10-30-2024 End: 10-30-2024 Patient encounter procedure 10/30/2024 8:30 AM EST Office Visit [facility] Primary [facility] [place] [address] [place] [address] Jose Clarke, [address] [place] [address] [facility] [place] Start: 10-24-2024 Medicare Advantage Annual Wellness Visit Medicare Advantage Annual Wellness Visit [facility] Start: 07-03-2024 End: 07-03-2025 CBC W Auto Differential panel - Blood CBC auto differential Lab Routine Essential hypertension Expected: 07/03/2024 (Approximate), Expires: 07/03/2025 [facility] Work Phone: Comment on above: Expected: 07/03/2024 (Approximate), Expi res: 07/03/2025 Start: 07-03-2024 End: 07-03-2025 Comprehensive metabolic 1998 panel - Serum or Plasma Comprehensive metabolic panel Lab Routine Essential hypertension Expected: 07/03/2024 (Approximate), Expires: 07/03/2025 [facility] Comment on above: Expected: 07/03/2024 (Approximate), Expi res: 07/03/2025 Start: 07-03-2024 End: 07-03-2025 Lipid 1996 panel - Serum or Plasma Lipid panel Lab Routine Hypercholesterolemia with hypertriglyceridemia Expected: 07/03/2024 (Approximate), Expires: 07/03/2025 [facility] Comment on above: Expected: 07/03/2024 (Approximate), Expi res: 07/03/2025 Start: 07-03-2024 End: 07-03-2024 Patient encounter procedure 07/03/2024 8:30 AM EDT Office Visit [facility] Medical [facility] [address] [place] [address] Jose Clarke, [address] [place] [address] [facility] Start: 06-24-2024 COVID-19 Vaccine ( season) COVID-19 Vaccine () [facility] Start: 06-24-2024 COVID-19 Vaccine () COVID-19 Vaccine () [facility] Start: 06-24-2024 Influenza vaccination Influenza Vaccine (#1) [facility] Start: 05-22-2024 End: 05-22-2024 Patient encounter procedure 05/22/2024 8:30 AM EDT Office Visit [facility] [address] [place] [address] Jose Clarke DO [address] [place] [address] [facility] Start: 02-07-2024 End: 02-06-2025 Comprehensive metabolic 1998 panel - Serum or Plasma Comprehensive metabolic panel Lab Routine Type 2 diabetes mellitus with chronic kidney disease, without long-term current use of insulin, unspecified CKD stage (HCC) Expected: 02/07/2024 (Approximate), Expires: 02/06/2025 [facility] Work Phone: Comment on above: Expected: 02/07/2024 (Approximate), Expi res: 02/06/2025 Start: 02-07-2024 End: 02-06-2025 Hemoglobin A1c measurement Hemoglobin A1c Lab Routine Type 2 diabetes mellitus with chronic kidney disease, without long-term current use of insulin, unspecified CKD stage (HCC) Expected: 02/07/2024 (Approximate), Expires: 02/06/2025 [facility] Comment on above: Expected: 02/07/2024 (Approximate), Expi res: 02/06/2025 Start: 02-07-2024 End: 02-06-2025 Lipid 1996 panel - Serum or Plasma Lipid panel Lab Routine Hypercholesterolemia with hypertriglyceridemia Expected: 02/07/2024 (Approximate), Expires: 02/06/2025 [facility] Comment on above: Expected: 02/07/2024 (Approximate), Expi res: 02/06/2025 Start: 02-07-2024 End: 02-07-2024 Patient encounter procedure 02/07/2024 11:00 AM EDT Office Visit [facility] [address] [place] [address] Jose Clarke, [address] [place] [address] [facility] Start: 11-26-2023 COVID-19 Vaccine () COVID-19 Vaccine () [facility] Start: 11-08-2023 End: 11-08-2024 Basic metabolic 1998 panel - Serum or Plasma Basic metabolic panel Lab Routine Type 2 diabetes mellitus with chronic kidney disease, without long-term current use of insulin, unspecified CKD stage (HCC) Expected: 11/08/2023 (Approximate), Expires: 11/08/2024 [facility] Work Phone: Comment on above: Expected: 11/08/2023 (Approximate), Expi res: 11/08/2024 Start: 11-08-2023 End: 11-08-2024 Hemoglobin A1c measurement Hemoglobin A1c Lab Routine Type 2 diabetes mellitus with chronic kidney disease, without long-term current use of insulin, unspecified CKD stage (HCC) Expected: 11/08/2023 (Approximate), Expires: 11/08/2024 [facility] Comment on above: Expected: 11/08/2023 (Approximate), Expi res: 11/08/2024 Start: 11-08-2023 End: 11-08-2024 Lipid 1996 panel - Serum or Plasma Lipid panel Lab Routine Type 2 diabetes mellitus with chronic kidney disease, without long-term current use of insulin, unspecified CKD stage (HCC) Expected: 11/08/2023 (Approximate), Expires: 11/08/2024 [facility] Comment on above: Expected: 11/08/2023 (Approximate), Expi res: 11/08/2024 Start: 10-24-2023 Medicare Advantage Annual Wellness Visit Medicare Advantage Annual Wellness Visit [facility] Start: 10-06-2023 End: 10-06-2023 Patient encounter procedure [facility] Start: 06-24-2023 Influenza vaccination Influenza Vaccine (#1) [facility] Start: 06-17-2023 Lipid panel Lipid Panel [facility] Start: 06-14-2023 End: 06-14-2023 Patient encounter procedure [facility] Start: 05-16-2023 Hemoglobin A1c measurement Diabetes: Hemoglobin A1C [facility] Start: 03-30-2023 Pneumococcal Vaccine: 65+ Years (2 - PPSV23 if available, else PCV20) Pneumococcal Vaccine: 65+ Years (2 - PPSV23 if available, else PCV20) [facility] Start: 02-14-2023 End: 02-15-2024 Basic metabolic 1998 panel - Serum or Plasma Basic metabolic panel Lab Routine Type 2 diabetes mellitus with chronic kidney disease, without long-term current use of insulin, unspecified CKD stage (HCC) Expected: 02/14/2023 (Approximate), Expires: 02/15/2024 [facility] Work Phone: Comment on above: Expected: 02/14/2023 (Approximate), Expi res: 02/15/2024 Start: 02-14-2023 End: 02-15-2024 Hemoglobin A1c/Hemoglobin.total in Blood Hemoglobin A1c Lab Routine Type 2 diabetes mellitus with chronic kidney disease, without long-term current use of insulin, unspecified CKD stage (HCC) Expected: 02/14/2023 (Approximate), Expires: 02/15/2024 [facility] Comment on above: Expected: 02/14/2023 (Approximate), Expi res: 02/15/2024 Start: 02-03-2023 [facility] Start: 12-28-2022 Hemoglobin A1c measurement Diabetes: Hemoglobin A1C [facility] Start: 12-18-2022 COVID-19 Vaccine (6 - Moderna series) COVID-19 Vaccine (6 - Moderna series) [facility] Start: 10-07-2022 Blood chemistry [facility] Work Phone: Start: 09-30-2022 Blood chemistry [facility] Work Phone: Start: 09-23-2022 Blood chemistry [facility] Work Phone: Start: 09-16-2022 Blood chemistry [facility] Work Phone: Start: 09-13-2022 Development of care plan [facility] Work Phone: Start: 09-13-2022 Patient discharge [facility] Work Phone: Start: 09-09-2022 End: 09-10-2022 [facility] Work Phone: Start: 09-08-2022 Referral to service [facility] Work Phone: Start: 09-06-2022 [facility] Work Phone: Start: 09-02-2022 Development of care plan [facility] Work Phone: Start: 09-02-2022 Developing a treatment plan [facility] Work Phone: Start: 09-02-2022 Application of device [facility] Work Phone: Start: 09-01-2022 Verification routine [facility] Work Phone: Start: 09-01-2022 Following clinical pathway protocol [facility] Work Phone: Start: 09-01-2022 Wound care [facility] Work Phone: Start: 09-01-2022 Admission procedure [facility] Work Phone: Start: 09-01-2022 Measuring intake and output [facility] Work Phone: Start: 09-01-2022 Patient referral to dietitian [facility] Work Phone: Start: 09-01-2022 Referral to occupational therapist [facility] Work Phone: Start: 09-01-2022 Referral to service [facility] Work Phone: Start: 09-01-2022 Vital signs measurements [facility] Work Phone: Start: 09-01-2022 End: 09-01-2022 [facility] Work Phone: Start: 09-01-2022 Patient discharge [facility] Work Phone: Start: 08-29-2022 Consultation [facility] Work Phone: Start: 08-29-2022 Measuring intake and output [facility] Work Phone: Start: 08-29-2022 Measuring intake and output [facility] Work Phone: Start: 08-29-2022 End: 08-29-2022 [facility] Work Phone: Start: 08-29-2022 Ambulation therapy management [facility] Work Phone: Start: 08-29-2022 Application of device [facility] Work Phone: Start: 08-29-2022 Exercises [facility] Work Phone: Start: 08-29-2022 Following clinical pathway protocol [facility] Work Phone: Start: 08-29-2022 Introduction of urinary catheter [facility] Work Phone: Start: 08-29-2022 Neurovascular assessment [facility] Work Phone: Start: 08-29-2022 Patient education [facility] Work Phone: Start: 08-29-2022 Provision of activity privileges [facility] Work Phone: Start: 08-29-2022 Referral to occupational therapist [facility] Work Phone: Start: 08-29-2022 Referral to service [facility] Work Phone: Start: 08-29-2022 Vital signs measurements [facility] Work Phone: Start: 08-29-2022 Wound care [facility] Work Phone: Start: 08-29-2022 Measuring intake and output [facility] Work Phone: Start: 08-29-2022 Measuring intake and output [facility] Work Phone: Start: 08-28-2022 Following clinical pathway protocol [facility] Work Phone: Start: 08-28-2022 Incentive spirometry [facility] Work Phone: Start: 08-28-2022 Application of ice collar, cap or bag [facility] Work Phone: Start: 08-28-2022 Assessment of risk of venous thromboembolism [facility] Work Phone: Start: 08-28-2022 Bedrest [facility] Work Phone: Start: 08-28-2022 Care regimes management [facility] Work Phone: Start: 08-28-2022 Consultation [facility] Work Phone: Start: 08-28-2022 Fall prevention [facility] Work Phone: Start: 08-28-2022 Inhalation therapy procedure [facility] Work Phone: Start: 08-28-2022 Insertion of catheter into peripheral vein [facility] Work Phone: Start: 08-28-2022 Neurovascular assessment [facility] Work Phone: Start: 08-28-2022 Oxygen therapy [facility] Work Phone: Start: 08-28-2022 Providing care according to standard [facility] Work Phone: Start: 08-28-2022 Referral to occupational therapist [facility] Work Phone: Start: 08-28-2022 Referral to service [facility] Work Phone: Start: 08-28-2022 Skin care [facility] Work Phone: Start: 08-28-2022 [facility] Work Phone: Start: 08-28-2022 Measuring intake and output [facility] Work Phone: Start: 08-28-2022 Plain chest X-ray Chest 1 View (Portable) [facility] Work Phone: Start: 08-28-2022 XR Chest Single view [facility] Work Phone: Start: 08-28-2022 End: 08-29-2022 [facility] Work Phone: Start: 08-28-2022 Verification routine [facility] Work Phone: Start: 08-28-2022 Admission procedure [facility] Work Phone: Start: 08-25-2022 Lipid panel [facility] Start: 08-24-2022 Diabetic foot examination Diabetic foot exam [facility] Start: 05-15-2022 Diabetic retinal exam Diabetic retinal exam [facility] Start: 04-23-2022 Creatinine measurement Creatinine monitoring [facility] Work Phone: Start: 04-23-2022 Potassium monitoring Potassium monitoring [facility] Work Phone: Start: 04-22-2022 End: 04-22-2022 Patient encounter procedure 04/22/2022 Office Visit Family Medicine Jose Clarke DO [address] [place] [address] [facility] Start: 03-11-2022 End: 03-11-2022 Patient encounter procedure 03/11/2022 Office Visit Family Jose Mejia DO [address] [place] [address] [facility] Start: 02-22-2022 Hemoglobin A1c measurement A1C test (Diabetic or Prediabetic) [facility] Start: 02-06-2022 Depression Screen Depression Screen [facility] Start: 02-06-2022 Lipid panel Lipid screen [facility] Work Phone: Start: 10-09-2021 Annual Wellness Visit (AWV) Annual Wellness Visit (AWV) [facility] Start: 08-21-2021 Creatinine measurement Creatinine monitoring [place], [place] Start: 08-21-2021 Potassium monitoring Potassium monitoring [place] Start: 08-18-2021 End: 08-18-2021 Patient encounter procedure 08/18/2021 Office Visit Family Medicine Jose Chavis, DO [address] [place] [address] [phone] [facility] Start: 08-07-2021 End: 08-07-2021 Patient encounter procedure 08/07/2021 Office Visit Family Medicine Jose Chavis, DO [address] [place] [address] [phone] [facility] Start: 06-24-2021 Influenza vaccination Flu vaccine (#1) [facility] Work Phone: Start: 04-17-2021 Creatinine measurement Creatinine monitoring [place], [place] Start: 04-17-2021 Potassium monitoring Potassium monitoring [place] Start: 02-06-2021 End: 02-06-2021 Office Visit 02/06/2021 Office Visit Family Medicine Jose Clarke, DO [address] [place] [address] [phone] [facility] Start: 01-02-2021 Lipid panel Lipid screen [place] Start: 10-16-2020 Shingles Vaccine (2 of 2) Shingles Vaccine (2 of 2) [place] Start: 10-08-2020 End: 10-08-2020 Office Visit 10/08/2020 Office Visit [facility] Jose Clarke, DO [address] [place] [address] [phone] [facility] Start: 09-12-2020 Creatinine monitoring Creatinine monitoring [facility] Work Phone: Start: 09-12-2020 [address] Potassium [facility] Work Phone: Start: 08-15-2020 End: 08-15-2020 Office Visit 08/15/2020 Office Visit [facility] Jose Clarke, DO [address] [place] [address] [phone] [facility] Start: 06-24-2020 Influenza vaccination Flu vaccine (#1) [place] Start: 01-06-[address] [facility] Work Phone: Start: 12-13-2019 End: 12-13-2019 Patient encounter procedure 12/13/2019 Office Visit [facility] BrianniteshJose gillette, DO [address] [place] [address] [phone] [facility] Start: 11-23-2019 Diabetes: Urine Albumin-Creatinine Ratio for Kidney Health Diabetes: Urine Albumin-Creatinine Ratio for Kidney Health [facility] Start: 04-12-2019 Annual Wellness Visit (AWV) Annual Wellness Visit (AWV) [facility] Work Phone: Start: 12-21-2018 End: 12-21-2018 Appointment Appoint[address] [facility] Work Phone: Start: 11-23-2018 End: 11-23-2018 Appointment Appointment [facility] Work Phone: Start: 2016 RSV Immunization for Adults (1 - 1-dose 75+ series) RSV Immunization for Adults (1 - 1-dose 75+ series) [facility] Start: 2001 Hepatitis B Vaccines (1 of 3 - Risk 3-dose series) Hepatitis B Vaccines (1 of 3 - Risk 3-dose series) [facility] Start: 2001 RSV Immunization aged 60 or older (1 - 1-dose 60+ series) RSV Immunization aged 60 or older (1 - 1-dose 60+ series) [facility] Start: 1991 Shingles Vaccine (1 of 2) Shingles Vaccine (1 of 2) [facility] Work Phone: Start: 1960 Urine screening for protein Diabetes: Urine Protein Screening [facility] Start: 1957 COVID-19 Vaccine (1 of 2) COVID-[facility]) [facility] Start: 1953 Depression Screening Depression Screening [facility] Start: 1951 Diabetic foot examination Diabetes: Foot Exam [facility] Start: 1951 Glaucoma screening Diabetes: Retinopathy Screening [facility] Start: 1951 Preventive dental service Diabetes: Dental Exam [facility] Start: 1941 Hepatitis B Vaccines (1 of 3 - 3-dose series) Hepatitis B Vaccines (1 of 3 - 3-dose series) [facility] Start: 1941 Hepatitis C screening Hepatitis C screen [place], [place] Start: 1941 Medicare Advantage Annual Wellness Visit (AWV) Medicare Advantage Annual Wellness Visit (AWV) [facility] End: 04-23-2021 Culture, Blood 2 Culture, Blood 2 Microbiology STAT One Time for 1 Occurrences starting 04/23/2021 until 04/23/2021 [facility] Work Phone: Comment on above: One Time for 1 Occurrences starting 10/2020 until 04/23/2021 Culture, Blood 2 Culture, Blood 2 Microbiology STAT 04/23/2021 9:34 AM EDT [facility] Work Phone: EKG 12 Lead - Chest Pain EKG 12 Lead - Chest Pain ECG STAT 04/23/2021 9:23 AM EDT [facility] Work Phone: End: 04-23-2021 Microscopic examination of blood, culture Culture, Blood Microbiology STAT One Time for 1 Occurrences starting 04/23/2021 until 04/23/2021 [facility] Work Phone: Comment on above: One Time for 1 Occurrences starting 10/2020 until 04/23/2021 Microscopic examinat ion of blood, culture Culture, Blood Microbiology STAT 04/23/2021 9:34 AM EDT [facility] Work Phone: OUTSIDE PROCEDURE SCAN OUTSIDE P ROCEDURE SCAN Procedures Ordered: 10/19/2024 [facility] Comment on above: Ordered: 10/19/2024 Patient Education [facility] Work Phone: Patient referral [facility] Work Phone: Immunizations Immunization Date Immunization Notes Care Provider Valeri whaley 07-26-2023 COVID-19, mRNA, LNP- S, PF, don-sucrose, 30 mcg/0.3 mL Jose Clarke DO Work Phone: [facility] 07-26-2023 Influenza, Seasonal, Quadrivalent, Adjuvanted Jose Clarke DO Work Phone: [facility] 07-26-2023 influenza virus vaccine, unspecified formulation Jose Clarke DO Work Phone: [facility] 08-17-2022 Covid Pfizer Bivalen t Booster Dr. Jose Clarke Work Phone: [facility] 08-11-2022 Influenza, high dose seasonal Dr. Jose Clarke DO Work Phone: [facility] 08-11-2022 influenza, high dose seasonal, preservative-free Dr. Jose Clarke Work Phone: [facility] 08-11-2022 Influenza, High-dose Seasonal, Quadrivalent, Preservative Free Jose Clarke DO Work Phone: [facility] 08-11-2022 influenza virus vaccine, unspecified formulation Jose Clarke DO Work Phone: [facility] 03-30-2022 Covid (Pfizer) Dr. Jose mariee Work Phone: [facility] 03-30-2022 pneumococcal conjuga te vaccine, [address] Jose Clarke Work Phone: [facility] 08-21-2021 COVID-19, Pfizer Pur ple top, DILUTE for use, 12+ yrs, 30mcg/0.3mL dose Jose Clarke DO Work Phone: [facility] Work Phone: 07-30-2021 Influenza, High-dose , Quadv, 65 yrs +, IM (Fluzone) Jose Clarke DO Work Phone: [facility] Work Phone: 12-31-2020 COVID-19, Moderna, Primary or Immunocompromised, PF, 100mcg/0.5mL Jose Clarke DO Work Phone: [facility] Work Phone: 12-04-2020 COVID-19, Moderna, Primary or Immunocompromised, PF, 100mcg/0.5mL Jose Clarke DO Work Phone: [facility] Work Phone: 10-08-2020 zoster vaccine recombinant Jose Clarke DO Work Phone: [facility] Work Phone: 08-21-2020 zoster vaccine recombinant Jose Clarke DO Work Phone: [facility] Work Phone: 08-06-[address] Jose Clarke Work Phone: [facility] 08-06-2020 influenza virus vaccine, unspecified formulation Jose Clarke DO Work Phone: [facility] 08-06-2020 influenza, seasonal, injectable Jose Clarke DO Work Phone: [facility] 07-29-2020 Influenza, High-dose , Quadv, 65 yrs +, IM (Fluzone) Pastor Vines [facility] 08-10-2019 influenza, high dose seasonal, preservative-free Jose Clarke DO Work Phone: [facility] Work Phone: 11-16-2018 tetanus toxoid, redu shey diphtheria toxoid, and acellular pertussis vaccine, adsorbed Radha Torres MD Work Phone: [facility] 08-17-2018 influenza, high dose seasonal, preservative-free Radha Torres MD Work Phone: [facility] 07-28-2017 influenza, injectabl e, quadrivalent, contains preservative Radha Torres MD Work Phone: [facility] 08-13-2016 influenza, injectabl e, quadrivalent, contains preservative Radha Torres MD Work Phone: [facility] 08-26-2015 influenza, high dose seasonal, preservative-free Jose Clarke DO Work Phone: [facility] Work Phone: 02-16-2015 pneumococcal conjuga te vaccine, 13 valent Radha Torres MD Work Phone: [facility] Work Phone: 02-13-2015 pneumococcal conjuga te vaccine, [address] Jose Clarke Work Phone: [facility] 08-26-2014 influenza virus vaccine, unspecified formulation Radha Torres MD Work Phone: [facility] Work Phone: 08-26-2014 influenza virus vaccine, whole virus Jose Clarke DO Work Phone: [facility] Work Phone: 10-30-2008 pneumococcal Conjuga te, unspecified formulation Jose Clarke DO Work Phone: [facility] Work Phone: 10-30-2008 pneumococcal polysaccharide vaccine, 23 valent Radha Torres MD Work Phone: [facility] 10-30-2008 pneumococcal vaccine , unspecified formulation Dr. Jose Clarke Work Phone: [facility] No information available. Arlene Neely LPN [facility] Work Phone: Payers Date Payer Category Payer Self-pay [id number] 2023 Medicare HMO [employer] AARP MEDICAR E ADVANTAGE LIFE1 [id number] 2022 Medicare [id number] 2019 Medicare [facility] MEDICARE [facility] MEDICARE COMPLETE [id number] 2019-Present [id number] 2019 Medicare [id number] 2016 Medicare [id number] 2014 Medicare [employer]MEDICA RE ADVANTAGE [facility] AD[employer]AGE xxxxxxxxxxx 2014-Present [phone] [address] [place] [address] xxxxxxxxxxx [id number] 1941 Unknown [id number] 1941 Unknown [id number] 1941 Unknown [id number] Unknown Unknown [id number] Unknown [id number] Unknown [id number] Social History Date Type Detail Facility Start: 04-17-2020 End: 04-28-2025 Tobacco smoking status NHIS Never smoker [facility] Start: 05-12-2015 End: 04-17-2020 Tobacco use and exposure Never used [place] Start: 04-17-2020 End: 03-26-2025 Alcohol intake Current non-drinker of alcohol (finding) [facility] Work Phone: Start: 03-03-2020 End: 05-06-2021 History SDOH Alcohol Frequency 1 [place] Start: 05-23-2019 End: 05-06-2021 History SDOH Social Connections Phone 5 [place] Start: 05-23-2019 History SDOH Stress 3 [facility] Work Phone: Start: 05-23-2019 History SDOH IPV Fear 2 M [place] Start: 1940 Sex Assigned At Not on file [facility] Work Phone: Start: 04-23-2021 End: 07-03-2024 Alcohol intake [facility] Work Phone: Start: 10-17-2022 End: 06-14-2023 Exposure to SARS-CoV-2 (event) Not sure [facility] Start: 04-23-2021 End: 02-03-2023 Tobacco smoking status NHIS Unknown if ever smoked [facility] Start: 06-13-2020 Occasional [facility] Start: 06-13-2020 With Family [facility] Start: 07-31-2020 Non-smoker [facility] Start: 1940 Sex Assigned At Male [facility] Start: 02-14-2023 End: 07-03-2024 Tobacco use panel [facility] How often do you nee d to have someone help you when you read instructions, pamphlets, or other written material from your doctor or pharmacy [SILS] Never [facility] Has the electric, ga s, oil, or water company threatened to shut off services in your home in past 12Mo No [facility] Are you now , , , , never or living with a partner? [facility] How often to you hav e a drink containing alcohol? Never [facility] How hard is it for y ou to pay for the very basics like food, housing, medical care, and heating Not very hard [facility] Do you feel stress - tense, restless, nervous, or anxious, or unable to sleep at night because your mind is troubled all the time - these days [OSQ] Not at all [facility] (I/We) worried wheth er (my/our) food would run out before (I/we) got money to buy more. Never true [facility] Start: 05-24-2022 Sex Male (finding) [facility] NEGATED: Highlighted rowStart: 11-23-2018 End: 11-23-2018 Alcohol use ETOH USE No [facility] Work Phone: NEGATED: Highlighted rowStart: 11-23-2018 End: 11-23-2018 Details of drug misuse behavior DRUG USE No [facility] Work Phone: NEGATED: Highlighted rowStart: 11-23-2018 End: 11-23-2018 Assertion Never smoker [facility] Work Phone: Medical Equipment Procedure Code Equipment Code Equipment Origin al Text Equipment Identifier Dates Primary uncemented hemiarthroplasty of hip KIT,FEMORAL BONE CEMENT PREP FDA Start: 08-29-2022 Primary uncemented hemiarthroplasty of hip ([id number]) Uncoated hip femur prosthesis, one-piece ()[id number] FDA Start: 08-29-2022 Primary uncemented hemiarthroplasty of hip ([id number]) Orthopaedic cement spacer ()[id number] FDA Start: 08-29-2022 Primary uncemented hemiarthroplasty of hip ([id number]) Coated hip femur prosthesis, modular ()[id number] FDA Start: 08-29-2022 Primary uncemented hemiarthroplasty of hip ([id number]) Uncoated hip femur prosthesis, one-piece ()[id number] FDA Start: 08-29-2022 Primary uncemented hemiarthroplasty of hip Orthopaedic cement, non-antimicrobial ()[id number] FDA Start: 08-29-2022 Primary uncemented hemiarthroplasty of hip KIT,FEMORAL BONE CEMENT PREP FDA Start: 08-29-2022 Primary uncemented hemiarthroplasty of hip KIT,FEMORAL BONE CEMENT PREP FDA Start: 08-29-2022 [id number] Start: 09-12-2019 1 each by Does n ot apply route 2 times daily [id number] Start: 04-17-2020 Tests bid [id number] Start: 10-31-2018 1 each by Does n ot apply route 2 times daily [id number] Start: 12-24-2020 1 each by Does n ot apply route 2 times daily [id number] Start: 10-22-2019 E11.9 Test 2 giuseppe es a day & as needed for symptoms of irregular blood glucose. Dispense sufficient amount for indicated testing frequency plus additional to accommodate PRN testing needs. [id number] Start: 12-22-2021 E11.9 Test 2 giuseppe es a day & as needed for symptoms of irregular blood glucose. Dispense sufficient amount for indicated testing frequency plus additional to accommodate PRN testing needs. [id number] Start: 12-22-2021 1 each. [id number] Start: 12-24-2020 1 each by Other route 2 times daily. [id number] Start: 02-13-2024 End: 07-12-2024 1 each by Other route 2 times daily. [id number] Start: 07-12-2024 1 each by Other route 2 times daily. Use as instructed [id number] Start: 09-17-2024 E11.9 Use to inject 1-4 times daily as directed. [id number] Start: 11-08-2024 End: 11-08-2025 Goals Date Patient Goal Desired Activity /State Comment on above: Pt has no goals at t his time. Formatting of this n ote might be different from the original. Pt has no goals at this time. Functional Status Date Assessment Result Facility 03-26-2025 Patient Health [facility] ionnaire 2 item (PHQ-2) [Reported] [facility] 09-13-2022 Functional status Ambulates;Up ad cammie [facility] Work Phone: 09-01-2022 Functional status Chair [facility] Work Phone: Mental Status Date Assessment Result Facility 02-03-2023 Cognitive function Level Of Cons ciousness Awake;Alert;Appropriate [facility] Work Phone: 09-13-2022 Cognitive function Touch/Shaking [facility] Work Phone: 09-11-2022 Cognitive function Appropriate;Cooperativ e [facility] Work Phone: 09-01-2022 Cognitive function Voice/Name [facility] Work Phone: Clinical Notes 09-13-2022 to 04-28-2025 Note Date & Type Note Facility 04-28-2025 History and physical note [facility] 04-28-2025 Discharge summary Note Date/Time April 28, 2025 1:35pm [facility] Medical Records Department [address] [place] [address] Emergency Department Summary 04/28/25 MR#: [id number] Acct: [id number] Name: BRIAN JOSHI Rep #:[id number] : 1940 85 From: Korey Noel MD PCP: Dr. Jose Clarke, DO Status:RE G ER Location: ED HPI HPI - Fall History of Present Illness Chief Complaint: Fall Detail of Chief Complaint: Patient tripped on [facility] sidewalk and fell. He complains of pain right ing Informant: patient and family Occured/Mechanism Occurred: Today and Hours Mechanism/Context: Yes trip Narrative: HPI narrative Fall from Height (ft): Not applicable Fall down steps #: Not applicable Usually ambulates: Without assistance Pain/Injury Location: Right groin area. Patient states he was unable to get up. He was brought Pain Location: pelvis Quality of Pain: Dull and Aching Current Severity: Mild Maximum Severity: Severe Worsened by: Attempt to move right lower extremity Relieved by: Nothing Associated Symptoms Associated Symptoms: Positive for Loss of function and Inability to ambulate; Negative for Parasthesias, Weakness, Loss of consciousness or Amnesia Narrative Narrative: Patient is an 85-year-old male. He has history of CVA, stage III kidney disease, coronary disease, diabetes, hyperlipidemia, hypertension, pacemaker whohad a closed left hip fracture repaired by Dr. Forde approximate 2 years ago. He presents after he tripped. He complains of pain in the right inguinal area. He was unable to get up. He had to roll over to onto his left side to diminish the pain. He denies paresthesia, anesthesia Medicus. Denies head trauma. Denies neck pain. He denies cardiac or respiratory symptoms. He denies having black or bloody stools. He is on no anticoagulant. Prior similar symptoms: Yes Recent Illness/Hospitalization: No PFSH PFSH Medical History HLD (hyperlipidemia) Hypertension Stage 3b chronic kidney disease Coronary artery disease Benign prostatic hyperplasia Diabetes mellitus, type 2 Pacemaker Home Medications ?Medication ?Instructions ?Recorded ?Last Taken ?Type hydralazine 100 mg tablet 25 mg PO TID BP 12/16/1603/14 07:00 History lisinopril 40 mg tablet 40 mg PO DAILY BP 06/13/20 1 10/28/21 07:00 History aspirin 81 mg tablet 81 mg PO DAILY Heart 1 08/28/22 07:00 History glimepiride 1 mg tablet 2 mg PO BID Diabetes 1 08/28/22 07:00 History atorvastatin 80 mg tablet 80 mg PO QHS HYPERLIPIDEMIA 08/28/22 08/27/22 18:00 History acetaminophen 500 mg tablet 1,000 mg (2 x 500 mg) PO Q 8 pain 09/08/22 Unknown Rx #0 tabs amlodipine 10 mg tablet 10 mg PO DAILY blood pressur e 30 09/08/22 Unknown Rx days #30 tabs chlorthalidone 25 mg tablet 25 mg PO DAILY 12/17/24 Un known History ezetimibe 10 mg tablet 10 mg PO DAILY cholesterol 0 12/17/24 Unknown History insulin glargine 100 unit/mL (3 10 unit subcut DAILY d iabetes 12/17/24 Unknown History mL) subcutaneous pen (Lantus Solostar U-100 Insulin) ondansetron 4 mg disintegrating 4 mg PO Q6H PRN PRN Na usea #15 tabs 12/17/24 Unknown Rx tablet Allergy/AdvReac Type Severity Reaction Status Date / Time No Known Allergies Allergy Verified 04/28/25 10:06 Family History Mother Colon cancer Diagnosed age [...] use type: does not use ROS ROS ED Constitutional Constitutional ED: Denies chills, fever(s), subjective or sweats Eyes Eyes: Denies blurry vision, change in vision or diplopia ENT ENT ED: Denies ear pain, rhinorrhea or sore throat Cardiovascular Cardiovascular: Denies chest pain, orthopnea, palpitations, paroxysmal nocturnaldyspnea or racing heartbeat Respiratory/Chest Respiratory/Chest: Denies cough, dyspnea, dyspnea on exertion, orthopnea or paroxysmal nocturnal dyspnea Gastrointestinal Gastrointestinal: Denies abdominal pain, melena, nausea or vomiting Genitourinary Genitourinary ED: Denies dysuria, hematuria or urinary frequency Musculoskeletal Musculoskeletal: Denies arthralgias, back pain or myalgias Integumentary Denies rash Neurologic Neurologic: Denies headache(s) or paresthesias Psychiatric Psychiatric: Denies anxiety or depression Endocrine Endocrinology: Denies polydipsia or polyuria Hematologic/Lymphatic Hematologic/Lymphatic: Denies easy bleeding or easy bruising EXAM Physical Exam Const Vital Signs: 04/28/25 10:07 04/28/25 10:10 Temperature 97.9 F Temperature Source Oral Pulse Rate 67 Respiratory Rate 16 Respiratory Effort Normal Non-Labored Respiratory Depth Normal Respiratory Pattern Normal Blood Pressure 143/69 H Blood Pressure Mean 93 Pulse Ox 95 Oxygen Delivery Method Room Air Positive well nourished and well developed Constitutional Narrative: Patient appears in mild discomfort. Blood pressure slightly elevated General Appearance ED: well developed HEENT Reports normocephalic and TM's normal bilaterally HEENT Narrative: There is no evidence of facial trauma or dental trauma. atraumatic Eyes PERRL and EOMs intact bilaterally General Eye ED: Negative for pale conjunctiva or scleral icterus Neck full ROM, no lymphadenopathy and supple General: Negative for tenderness Resp normal respiratory effort and no retractions Cardio regular rate, regular rhythm, S1 normal heart sound, S2 normal heart sound and no murmurs GI non-tender, non-distended and no masses Auscultation: normoactive bowel sounds Palpation: soft Narrative: There is no pain ovation over the pubic symphysis, right or left ischial tuberosity or right or left iliac wing. Logrolling causes him discomfort in theinguinal area. He has no inguinal lymphadenopathy or mass Extremity Extremity Narrative: . Slight shortening of the right lower extremity. Logrolling causes him discomfort. He does have abrasions over his right and left knee. There is no effusion. Patella is not ballotable. Varus valgus stress testing on the left causes no discomfort. Difficult to stress medial and lateral collateral ligament on the right because of pain in his groin area. He is able to have full range of motion of the left hip, left knee and ankle. There is no joint line tenderness either side. Cinthia's test is negative on the left as well as the right. It was limited on the right. Cannot perform modified Greg's test on the right. Neuro oriented x3, CN's II-XII intact bilaterally, moves all extremities, no focal motor deficits and no sensory deficits noted [place] Coma Scale: document GCS findings Spontaneous Obeys Commands Oriented 15 Sensorium / Orientation: alert Motor Exam: strength 5/5 throughout Psych mental status grossly normal and thought process normal Skin Skin Narrative: No lacerations or evidence of infection. Trauma: abrasion MDM MDM MDM Narrative Medical decision making narrative: Clinically patient has a fractured hip. Will obtain hip x-ray. If hip x-ray confirms suspicion for fracture we will obtain chest x-ray, EKG and appropriate labs for prehospital restratification clearance. A1c was added after discussionwith Dr. Shahzad Leggett. History & Record Review Additional record(s) reviewed:: Prior inpatient record (Prior records for left hip fracture.) Lab Data Attestation: I reviewed the patient's lab results. Lab results narrative: White count is elevated 13,000 which is insignificant and may be due to the trauma. H&H is unremarkable. Platelet count is normal. Labs: Laboratory Results - last 24 hr 04/28/25 11:45 WBC 13.0 H RBC 4.28 L Hgb 13.4 Hct 40.4 MCV 94.4 H MCH 31.3 MCHC 33.2 RDW Std Deviation 44.2 H RDW Coeff of Facundo 12.8 Plt Count 331 MPV 9.5 Immature Gran % (Auto) 1.000 H Neut % (Auto) 82.2 H Lymph % (Auto) 10.0 L [place] % (Auto) 5.7 Eos % (Auto) 0.3 Baso % (Auto) 0.8 Absolute Neuts (auto) 10.7 H Absolute Lymphs (auto) 1.30 Nucleated RBC % 0 Blood Type A NEGATIVE Radiography Chest X-Ray - ED: 1 View (Dual-chamber pacemaker noted. Poor inspiratory volume. Difficult to read for this reason. Cardiac silhouette is normal. Hilum is normal. Osseous structures in no acute process.) and Read by ED Physician (Three-view x-ray of the right hip reveals a Sheridan type II femoral neck fracture. In light of this we will obtain a chest x-ray and appropriate blood work for restratification for surgery.) EKG Initial EKG: Attestation: I personally reviewed and interpreted this EKG as follows: Interpretation: Sinus Rhythm (Rate is 68. EKG is normal. NV interval is 182 ms. QRS duration 90 ms. QT duration 414 ms. Fountain is normal) Management Discussion w/another healthcare provider: Hospitalist (Spoke with Dr. Fitzpatrick. Full admit MedSurg. He was informed I did speak with Dr. Leggett and Dr. Leggett would see the patient and plan is surgery tomorrow) and Wildlife Forensic Geneticist (Spoke with Dr. Leggett since patient seen Dr. Forde in the past. Admit to medicine. He requests an A1c so he can explain risk and possible more vitamin D due to his diabetes. Will contact hospitalist for admission) Discharge Plan Dx/Rx/DC Orders Clinical Impression: Closed fracture of neck of right femur, HTN (hypertension), Status post placement of cardiac pacemaker, Fall, Diabetes mellitus, Coronary artery disease, Chronic kidney disease, stage 3b, History of CVA (cerebrovascular accident), Inability to ambulate due to hip Disposition Disposition: Acute Care Hospital [facility] What to do if you have Problems For any increased pain, shortness of breath, bleeding, nausea or vomiting, chestpain, or any unexpected problems, contact your Primary Care Provider. Call [facility] ([phone]) or report to the closest Emergency Room. Call 911 if necessary. 04/28/25 1217 <Electronically signed by Korey Noel MD> Cosigner Signature (if applicable): CC: Dr. Jose Clarke DO ~ Signed ADDENDUM by Dr. Korey Noel MD on 04/28/25 at 1331 Radiology report was negative for fracture. Dr. Fitzpatrick inform me that the radiologist read the x-ray is negative. I am in disagreement. He requested a CAT scan to confirm or refute fracture. 1 was ordered. 04/28/25 1331<Electronically signed by Korey Noel MD> Cosigner Signature (if applicable): cc: Dr. Jose Clarke DO ~* Signed ADDENDUM by Dr. Korey Noel MD on 04/28/25 at 1335 Radiology department was contacted. They were asked to contact radiologist to relook at the x-ray. I initially ordered a CAT scan. This was canceled becausein my opinion there is a fracture and this is a unnecessary test. 04/28/25 1335<Electronically signed by Korey Noel MD> Cosigner Signature (if applicable): cc: Dr. Jose Clarke DO ~* Signed [facility] Work Phone: 1(855) 755-718107-06-2025 Radiology Diagnostic study note [facility] Imaging Services [address] [place], [place] [id number] HIP, UNI W/ Pelvis 2-3 Views MR#: [id number] Acct: [id number] Name: BRIAN JOSHI Rep #: [id number] : 1940 M 85 From: Giuseppe Sharp MD PCP: Dr. Jose Clarke DO Status: RE G ER Study:HIP, UNI W/ Pelvis 2-3 Views Date of Ex am: 04/28/25 Exam# [id number] Ordering Dr: Luisa Noel MD ADDENDUM by Dr. Wojciech Sharp MD on 04/28/25 at 1346 See below FINDINGS: The bony pelvis is intact. There is degenerative disc disease, L4-5 and L5-S1. The SI joints appearnormal. There is a normal-appearing left total hip arthroplasty. Two views of the right hip demonstrate a subcapital fracture of the right femur. The hip joint space appears unremarkable. There are vascular calcifications. IMPRESSION 1. Subcapital fracture of the right femur. 2. Other findings as noted. Reading Location: [facility] 04/28/25 1347 Date cc: Dr. Jose Clarke DO; Dr. Korey Noel MD ~* Signed PROCEDURE: HIP, UNI W/ PELVIS 2-3 VIEWS 04/28/2025 REASON FOR EXAM: INJURY/PAIN TECHNIQUE: HIP, UNI W/ PELVIS 2-3 VIEWS COMPARISON: None. FINDINGS: The bony pelvis is intact. There is degenerative disc disease, L4-5 and L5-S1. The SI joints appearnormal. There is a normal-appearing left total hip arthroplasty. Two views of the right hip demonstrate no evidence of fracture or dislocation. The hip joint space appears unremarkable. There are vascular calcifications. RAD/HIP, UNI W/ Pelvis 2-3 Views IMPRESSION: 1. Normal-appearing right hip. 2. Other findings as noted. Reading Location: [facility] CC: Dr. Jose Clarke DO; Dr. Korey Noel MD ~ Hand Mold Maker: Signed [facility] Work Phone: 1(973) 925-377707-06-2025 Discharge summary [facility] Medical Records Department [address] [place] [address] Emergency Department Summary 04/28/25 MR#: [id number] Acct: [id number] Name: BRIAN JOSHI Rep #:[id number] : 1940 85 From: Korey Noel MD PCP: Dr. Jose Clarke, DO Status:RE G ER Location: ED HPI HPI - Fall History of Present Illness Chief Complaint: Fall Detail of Chief Complaint: Patient tripped on crack sidewalk and fell. He complains of pain right ing Informant: patient and family Occured/Mechanism Occurred: Today and Hours Mechanism/Context: Yes trip Narrative: HPI narrative Fall from Height (ft): Not applicable Fall down steps #: Not applicable Usually ambulates: Without assistance Pain/Injury Location: Right groin area. Patient states he was unable to get up. He was brought Pain Location: pelvis Quality of Pain: Dull and Aching Current Severity: Mild Maximum Severity: Severe Worsened by: Attempt to move right lower extremity Relieved by: Nothing Associated Symptoms Associated Symptoms: Positive for Loss of function and Inability to ambulate; Negative for Parasthesias, Weakness, Loss of consciousness or Amnesia Narrative Narrative: Patient is an 85-year-old male. He has history of CVA, stage III kidney disease, coronary disease, diabetes, hyperlipidemia, hypertension, pacemaker whohad a closed left hip fracture repaired by Dr. Forde approximate 2 years ago. He presents after he tripped. He complains of pain in the right inguinal area. He was unable to get up. He had to roll over to onto his left side to diminish the pain.He denies paresthesia, anesthesia Medicus. Denies head trauma. Denies neck pain. He denies cardiac or respiratory symptoms. He denies having black or bloody stools. He is on no anticoagulant. Prior similar symptoms: Yes Recent Illness/Hospitalization: No PFSH PFSH Medical History HLD (hyperlipidemia) Hypertension Stage 3b chronic kidney disease Coronary artery disease Benign prostatic hyperplasia Diabetes mellitus, type 2 Pacemaker Home Medications ?Medication ?Instructions ?Recorded ?Last Taken ?Type hydralazine 100 mg tablet 25 mg PO TID BP 12/16/1603/14 07:00 History lisinopril 40 mg tablet 40 mg PO DAILY BP 06/13/20 1 10/28/21 07:00 History aspirin 81 mg tablet 81 mg PO DAILY Heart 1 08/28/22 07:00 History glimepiride 1 mg tablet 2 mg PO BID Diabetes 1 08/28/22 07:00 History atorvastatin 80 mg tablet 80 mg PO QHS HYPERLIPIDEMIA 08/28/22 08/27/22 18:00 History acetaminophen 500 mg tablet 1,000 mg (2 x 500 mg) PO Q 8 pain 09/08/22 Unknown Rx #0 tabs amlodipine 10 mg tablet 10 mg PO DAILY blood pressur e 30 09/08/22 Unknown Rx days #30 tabs chlorthalidone 25 mg tablet 25 mg PO DAILY 12/17/24 Un known History ezetimibe 10 mg tablet 10 mg PO DAILY cholesterol 0 12/17/24 Unknown History insulin glargine 100 unit/mL (3 10 unit subcut DAILY d iabetes 12/17/24 Unknown History mL) subcutaneous pen (Lantus Solostar U-100 Insulin) ondansetron 4 mg disintegrating 4 mg PO Q6H PRN PRN Na usea #15 tabs 12/17/24 Unknown Rx tablet Allergy/AdvReac Type Severity Reaction Status Date / Time No Known Allergies Allergy Verified 04/28/25 10:06 Family History Mother Colon cancer Diagnosed age [...] use type: does not use ROS ROS ED Constitutional Constitutional ED: Denies chills, fever(s), subjective or sweats Eyes Eyes: Denies blurry vision, change in vision or diplopia ENT ENT ED: Denies ear pain, rhinorrhea or sore throat Cardiovascular Cardiovascular: Denies chest pain, orthopnea, palpitations, paroxysmal nocturnaldyspnea or racing heartbeat Respiratory/Chest Respiratory/Chest: Denies cough, dyspnea, dyspnea on exertion, orthopnea or paroxysmal nocturnal dyspnea Gastrointestinal Gastrointestinal: Denies abdominal pain, melena, nausea or vomiting Genitourinary Genitourinary ED: Denies dysuria, hematuria or urinary frequency Musculoskeletal Musculoskeletal: Denies arthralgias, back pain or myalgias Integumentary Denies rash Neurologic Neurologic: Denies headache(s) or paresthesias Psychiatric Psychiatric: Denies anxiety or depression Endocrine Endocrinology: Denies polydipsia or polyuria Hematologic/Lymphatic Hematologic/Lymphatic: Denies easy bleeding or easy bruising EXAM Physical Exam Const Vital Signs: 04/28/25 10:07 04/28/25 10:10 Temperature 97.9 F Temperature Source Oral Pulse Rate 67 Respiratory Rate 16 Respiratory Effort Normal Non-Labored Respiratory Depth Normal Respiratory Pattern Normal Blood Pressure 143/69 H Blood Pressure Mean 93 Pulse Ox 95 Oxygen Delivery Method Room Air Positive well nourished and well developed Constitutional Narrative: Patient appears in mild discomfort. Blood pressure slightly elevated General Appearance ED: well developed HEENT Reports normocephalic and TM's normal bilaterally HEENT Narrative: There is no evidence of facial trauma or dental trauma. atraumatic Eyes PERRL and EOMs intact bilaterally General Eye ED: Negative for pale conjunctiva or scleral icterus Neck full ROM, no lymphadenopathy and supple General: Negative for tenderness Resp normal respiratory effort and no retractions Cardio regular rate, regular rhythm, S1 normal heart sound, S2 normal heart sound and no murmurs GI non-tender, non-distended and no masses Auscultation: normoactive bowel sounds Palpation: soft Narrative: There is no pain ovation over the pubic symphysis, right or left ischial tuberosity or right or left iliac wing. Logrolling causes him discomfort in theinguinal area. He has no inguinal lymphadenopathy or mass Extremity Extremity Narrative: . Slight shortening of the right lower extremity. Logrolling causes him discomfort. He does have abrasions over his right and left knee. There is no effusion. Patella is not ballotable. Varus valgus stress testing on the left causes no discomfort. Difficult to stress medial and lateral collateral ligament on the right because of pain in his groin area. He is able to have full range of motion of the left hip, left knee and ankle. There is no joint line tenderness either side. Cinthia's test is negative on the left as well as the right. It was limited on the right. Cannot perform modified Greg's test on the right. Neuro oriented x3, CN's II-XII intact bilaterally, moves all extremities, no focal motor deficits and no sensory deficits noted Christina Coma Scale: document GCS findings Spontaneous Obeys Commands Oriented 15 Sensorium / Orientation: alert Motor Exam: strength 5/5 throughout Psych mental status grossly normal and thought process normal Skin Skin Narrative: No lacerations or evidence of infection. Trauma: abrasion MDM MDM MDM Narrative Medical decision making narrative: Clinically patient has a fractured hip. Will obtain hip x-ray. If hip x-ray confirms suspicion for fracture we will obtain chest x-ray, EKG and appropriate labs for prehospital restratification clearance. A1c was added after discussionwith Dr. Shahzad Leggett. History & Record Review Additional record(s) reviewed:: Prior inpatient record (Prior records for left hip fracture.) Lab Data Attestation: I reviewed the patient's lab results. Lab results narrative: White count is elevated 13,000 which is insignificant and may be due to the trauma. H&H is unremarkable. Platelet count is normal. Labs: Laboratory Results - last 24 hr 04/28/25 11:45 WBC 13.0 H RBC 4.28 L Hgb 13.4 Hct 40.4 MCV 94.4 H MCH 31.3 MCHC 33.2 RDW Std Deviation 44.2 H RDW Coeff of Facundo 12.8 Plt Count 331 MPV 9.5 Immature Gran % (Auto) 1.000 H Neut % (Auto) 82.2 H Lymph % (Auto) 10.0 L [place] % (Auto) 5.7 Eos % (Auto) 0.3 Baso % (Auto) 0.8 Absolute Neuts (auto) 10.7 H Absolute Lymphs (auto) 1.30 Nucleated RBC % 0 Blood Type A NEGATIVE Radiography Chest X-Ray - ED: 1 View (Dual-chamber pacemaker noted. Poor inspiratory volume. Difficult to read for this reason. Cardiac silhouette is normal. Hilum is normal. Osseous structures in no acute process.) and Read by ED Physician (Three-view x-ray of the right hip reveals a Sheridan type II femoral neck fracture. In light of this we will obtain a chest x-ray and appropriate blood work for restratification for surgery.) EKG Initial EKG: Attestation: I personally reviewed and interpreted this EKG as follows: Interpretation: Sinus Rhythm (Rate is 68. EKG is normal. NV interval is 182 ms. QRS duration 90 ms.QT duration 414 ms. Fountain is normal) Management Discussion w/another healthcare provider: Hospitalist (Spoke with Dr. Fitzpatrick. Full admit MedSurg. He was informed I did speak with Dr. Leggett and Dr. Leggett would see the patient and plan is surgery tomorrow) and Wildlife Forensic Geneticist (Spoke with Dr. Leggett since patient seen Dr. Forde in the past. Admit to medicine. He requests an A1c so he can explain risk and possible more vitamin D due to his diabetes. Will contact hospitalist for admission) Discharge Plan Dx/Rx/DC Orders Clinical Impression: Closed fracture of neck of right femur, HTN (hypertension), Status post placement of cardiac pacemaker, Fall, Diabetes mellitus, Coronary artery disease, Chronic kidney disease, stage 3b, History of CVA (cerebrovascular accident), Inability to ambulate due to hip Disposition Disposition: Acute Care Hospital [facility] What to do if you have Problems For any increased pain, shortness of breath, bleeding, nausea or vomiting, chestpain, or any unexpected problems, contact your Primary Care Provider. Call [facility] ([phone]) or report tothe closest Emergency Room. Call 911 if necessary. 04/28/25 1217 Cosigner Signature (if applicable): CC: Dr. Jose Clarke DO ~ Signed ADDENDUM by Dr. Korey Noel MD on 04/28/25 at 1331 Radiology report was negative for fracture. Dr. Fitzpatrick inform me that the radiologist read the x-ray is negative. I am in disagreement. He requested a CAT scan to confirm or refute fracture. 1 was ordered. 04/28/25 133 Cosigner Signature (if applicable): cc: Dr. Jose Clarke DO ~* Signed ADDENDUM by Dr. Korey Noel MD on 04/28/25 at 1335 Radiology department was contacted. They were asked to contact radiologist to relook at the x-ray. I initially ordered a CAT scan. This was canceled becausein my opinion there is a fracture and this is a unnecessary test. 04/28/251334 Cosigner Signature (if applicable): cc: Dr. Jose Clarke DO ~* Signed [facility]07-06-2025 Radiology Diagnostic study note [facility] Imaging Services [address] [place], [place] [address] Chest 1 View (Portable) MR#: [id number] Acct: [id number] Name: BRIAN JOSHI Rep #: [id number] : 1940 M 85 From: Selma Lau MD PCP: Dr. Jose Clarke DO Status: RE G ER Study:Chest 1 View (Portable) Date of Exam: 04/28/25 Exam# [id number] Ordering Dr: Luisa Noel MD PROCEDURE: CHEST 1 VIEW (PORTABLE) 04/28/2025 REASON FOR EXAM: PREOPERATIVE CLEARANCE TECHNIQUE: Frontal view of the chest. COMPARISON: Chest radiograph 12/17/2024. FINDINGS: Hardware: Left chest wall cardiac pacer. Heart: Cardiac and mediastinal contours are stable. Lungs: Low lung volumes. Bibasilar atelectasis/scarring. No focal consolidation, pleural effusion or pneumothorax. Bones: Degenerative changes are identified within the thoracic spine. RAD/Chest 1 View (Portable) IMPRESSION: No Acute Findings. Reading Location: [id number] CC: Dr. Jose Clarke DO; Dr. Korey Neol MD ~ Hand Mold Maker: Signed [facility]06-03-2025 History of Present illness Narrative* Jose Clarke DO - 03/26/2025 9:40 AM EDT Images from the original note were not included. [facility] [address] [facility] [address] Visit type: Established Patient Reason [...] - Lipid panel Coronary artery disease involving [place] coronary artery of [place] heart without angina pectoris Essential hypertension Comments: [...] units of insulin daily as well as glimepiride.No hypoglycemic episodes. No recent change in vision [...] tender, without masses, hepatosplenomegaly, or bruits. Normal BSevident. Extremities are normal without edema. Peripheral pulses [...] Disp: 100 tablet, Rfl: 2 Continuous Glucose Paint Roller Winder (FreeStyle Jose 3 [place]) device, 1 each 2 times daily as [...] MOUTH 3 TIMES DAILY, Disp: 240 tablet, Rfl:3 insulin glargine (Lantus SoloStar) 100 UNIT/ML pen, [...] Mother age 82 Coronary artery disease Father [place], age 57 No Known Problems Sister Diabetes Sister Hypertension Brother Arthur Prostate cancer Brother Arthur 74 alive age 80 No Known Problems Brother Ramon in ECF, alive age 88 Prostate cancer Brother pastor pedraza 70 Dementia Brother pastor pedraza in ECF age 93 documented in this [facility]04-22-2025 Telephone encounter Note* Telephone Encounter - Denisse Sellers MA - 02/12/2025 8:13 AM EDT Recent Visits Date Type Provider Dept 12/21/24 Office Visit Jose Clarke DO [facility] 10/30/24 Office Visit Jose Clarke, DO [facility] 07/03/24 Office Visit Jose Clarke, DO [facility] [...] recent labs completed in chart? N/A [id number] Miscellaneous Notes* Telephone Encounter - Denisse Sellers MA - 02/12/2025 8:13 AM EDT Recent Visits Date Type Provider Dept 12/21/24 Office Visit Jose Clarke, DO [facility] 10/30/24 Office Visit Jose Clarke, DO [facility] 07/03/24 Office Visit [...] recent labs completed in chart? N/A None * Telephone Encounter - Carmen Irina Mckeon - 02/11/2025 4:14 PM EDT Name of caller: Brian Contact phone number: [phone] Relationship to Patient: patient Provider: Evy Practice: [facility] Chief Complaint/Reason for Call: Patient states he needs both medications chlorthalidone (Hygroton)25 MG tablet ,atorvastatin (Lipitor) 80 MG tablet sent to pharmacy [address] states they are saying there is no refills. Please advise patient whendone needs as soon as possible. Best time of day caller can be reached: any Patient advised that office/PCP has 24-48 business hours to return their call: Yes documented in this [facility]04-21-2025 Telephone encounter Note* Telephone Encounter - Carmen Mckeon - 02/11/2025 4:14 PM EDT Name of caller: Brian Contact phone number: [phone] Relationship to Patient: patient Provider: Evy Practice: [facility] Chief Complaint/Reason for Call: Patient states he needs both medications chlorthalidone (Hygroton)25 MG tablet ,atorvastatin (Lipitor) 80 MG tablet sent to pharmacy [address] states they are saying there is no refills. Please advise patient whendone needs as soon as possible. Best time of day caller can be reached: any Patient advised that office/PCP has 24-48 business hours to return their call: Yes [id number] Evaluation note* Diagnosis Chronic kidney disease, stage 3a (HCC)- Primary Secondary hyperparathyroidism of renal origin (HCC) Secondary hyperparathyroidism (of renal origin) documented in this encounter [id number] History of Present illness Narrative* Jose Payton Evy, DO - 12/21/2024 8:00 AM EST Images from the original note were not included. [facility] - [address] [facility] [address] Visit type: Established Patient Reason [...] kidney disease (HCC) Coronary artery disease involving [place] coronary artery of [place] heart without angina pectoris Hypercholesterolemia with hypertriglyceridemia [...] morning only 200 tablet 2 Continuous Glucose Paint Roller Winder (FreeStyle Jose 3 [place]) device 1 each 2 times daily as [...] / Black CATARACT EXTRACTION Bilateral COLONOSCOPY 2004 [facility] COLONOSCOPY 2014 [facility]- [facility] CORONARY ANGIOPLASTY WITH STENT PLACEMENT 03/2010 LAD coronary stent CYSTOSCOPY 08/2022 Dr. Costa, [place] HAND CONTRACTURE RELEASE Right 08/2022 Dr. Forde PARTIAL HIP ARTHROPLASTY Left 08/2022 Dr. Forde TRANSURETHRAL RESECTION OF PROSTATE 07/2020 Dr Costa Family History Problem Relation Name Age of Onset Colon cancer Mother age 82 Coronary artery disease Father [place], age 57 No Known Problems Sister Diabetes [...] are intact. Rapid alternating movements normal. Normal benedj-bp-suho, tandemgait testing and Romberg testing. No Ramila's or Babinski. No carotid bruits. Heart is regular without ectopy or new murmurs. Lungs are clear. Abdomen withoutpain hepatosplenomegaly or masses. documented in this [facility]02-25-2025 [facility] Medical Records Department [address] [place] [address] Discharge Summary 12/18/24 1156 MR#: [id number] Acct: [id number] Name: BRIAN JOSHI Rep #: [id number] : 1940 84 From: Janiya Robert MD PCP: Dr. Jose Clarke DO Status:DIS DIEGO Location: [place] [address] Providers Date of Admission: 12/17/24 Date of [...] 12:55 IMPRESSION: Pulmonary venous congestion. [facility] 12/17/24 16:06 IMPRESSION: Chronic right caudate lacunar infarct. No CT evidence of acute intracranial pathology. Reading Location: [id number] D/C Instructions Discharge Diet: - (DASH diet) [...] statin dose unless contrai (more content not included)...[facility]01-21-2025 History of Present illness Narrative* Jose Clarke, DO - 11/13/2024 12:00 PM EST Images from the original note were not included. [facility] [address] [facility] [address] Dept: [phone] Dept Loc: [phone] Patient was identified and seen today via [...] stated that they are currently in the [facility]. If the patient is a minor, [...] disease, with long-term current use of insulin ([facility]) Other orders - glimepiride (Amaryl) 2 [...] DO 11/13/2024 12:14 PM documented in this [facility]01-21-2025 Telephone encounter Note* Telephone Encounter - Paz [...] right back up over 200. Please call [phone] R: Telephone Appointment scheduled 11/13/[address] [...] week Protocols used: Diabetes - Low Blood Lujkw-QJLCB-YN [facility] [id number] Miscellaneous Notes* Telephone Encounter - Paz Moffett [...] right back up over 200. Please call [phone] R: Telephone Appointment scheduled 11/13/[address] [...] week Protocols used: Diabetes - Low Blood Fxwrs-MYTNH-LO documented in this [facility]01-16-2025 Telephone encounter Note* Telephone Encounter - Naa Kearney - 11/08/2024 3:45 PM EST Message released to patient as written. Patient's further questions if applicable: Were all questions from office addressed or relayed to the patient from encounter: Yes. I released the message to the patient. No questions at this time. Please advise [facility] CenterBdlxqf83-94-0783 Miscellaneous Notes* Telephone Encounter - Naa Kearney [...] Name of caller: Brian Contact phone number: [phone] Relationship to Patient: patient Provider: Dr. Clarke [...] return their call: Yes documented in this encounterSCleveland ClinicFmqayn83-47-4418 Telephone encounter Note* Telephone Encounter - Madhuri Robison LPN - 11/08/2024 3:25 PM EST Placed call to patient to discuss provider direction. Message left on voicemail to return call. Please release message to patient: Yes. The patient should continue glimepiride as directed [address]Pvfukb48-69-5834 Note* Addendum Note - Jose Tata DO Evy - 11/08/2024 12:49 PM ESTAddended by: JOSE CLARKE on: 11/08/2024 12:49 PM Modules accepted: Orders [address]Zrttsz60-12-7716 Note* Addendum Note - Jose Tata DO Evy - 11/08/2024 12:49 PM ESTAddended by: JOSE CLARKE on: 11/08/2024 12:49 PM Modules accepted: Orders [address]Zmvmtk27-44-0525 Note* Addendum Note - Jose Tata DO Evy - 11/08/2024 12:49 PM ESTAddended by: JOSE CLARKE on: 11/08/2024 12:49 PM Modules accepted: Orders [address]Qpnwbf87-59-5404 Miscellaneous Notes* Addendum Note - Jose Clarke [...] Name of caller: kenny Contact phone number: [phone] Relationship to Patient: patient Provider: evy Practice: [...] consents to. Copy of lab to his route sales representative Dr. Vines documented in this [facility]01-16-2025 Telephone encounter Note* Telephone Encounter - Linnette Carvalho - 11/08/2024 12:19 PM EST Name of caller: Brian Contact phone number: [phone] Relationship to Patient: patient Provider: Dr. Clarke [...] business hours to return their call: Yes [facility] CenterMxmexg68-80-2621 Note* Addendum Note - Madhuri Robison LPN - 11/08/2024 11:43 AM ESTAddended by: MADHURI ROBISON on: 11/08/2024 11:43 AM Modules accepted: Orders [address]Zampgf33-38-1394 Note* Addendum Note - Madhuri Robison LPN - 11/08/2024 11:43 AM ESTAddended by: MADHURI ROBISON on: 11/08/2024 11:43 AM Modules accepted: Orders [address]Hzehrf12-81-2907 Note* Addendum Note - Madhuri Robison LPN - 11/08/2024 11:43 AM ESTAddended by: MADHURI ROBISON on: 11/08/2024 11:43 AM Modules accepted: Orders [facility] Hqikmk76-75-7552 Telephone encounter Note* Telephone Encounter - Madhuri Robison LPN - 11/08/2024 11:41 AM EST Talked to patient and relayed message and he will try those recommendations. Also patient is wanting to try the Jose system as well. RX loaded Next ov 02/01/25 [facility] Fjrkgh56-07-2390 Telephone encounter Note* Telephone Encounter - Evie Calderón - 11/08/2024 9:03 AM EST Name of caller: kenny Contact phone number: [phone] Relationship to Patient: patient Provider: evy Practice: [...] business hours to return their call: Yes [place] [email or web address] Micpsr07-91-5750 Telephone encounter Note* Telephone Encounter - Kianna Newton MA - 11/05/2024 10:19 AM EST Patient aware of results. Consent to increase his Jardiance to 25mg. Rx pended. Results faxed to Dr. Vines [facility] [id number] Miscellaneous Notes* Telephone Encounter - Kianna Newton [...] consents to. Copy of lab to his route sales representative Dr. Vines documented in this encounterSCleveland ClinicEvimlh52-66-6378 Telephone encounter Note* Telephone Encounter - Kianna [...] consents to. Copy of lab to his route sales representative Dr. Vines [facility] [id number] History of Present illness Narrative* Jose Clarke DO - 10/30/2024 8:30 AM EST Images from the original note were not included. [facility] - [address] [facility] [address] Visit type: Established Patient Reason [...] kidney disease (HCC) Coronary artery disease involving [place] coronary artery of [place] heart without angina pectoris Essential hypertension Comments: [...] Mother age 82 Coronary artery disease Father [place], age 57 No Known Problems Sister Diabetes [...] moderate left foot drop. documented in this [facility]01-07-2025 Instructions* Patient Instructions* Jose Clarke DO - 10/30/2024 8:30 AM EST Restart Gabapentin twice a day routinely for low back and leg pain documented in this [facility]11-27-2024 Telephone encounter Note* Telephone Encounter - Kianna Newton MA - 09/19/2024 1:48 PM EST Recent Visits Date Type Provider Dept 07/03/24 Office Visit Jose Clarke DO [facility] Office Visit Jose Clarke DO [facility] Showing recent visits within past 365 days and meeting all other requirements Future Appointments Date Type Provider Dept 10/30/24 Appointment Jose Clarke DO [facility] Showing future appointments within next 90 [...] 31 (H) 07/03/2024 CREATININE 1.56 (H) 07/03/2024 [facility] CenterFkwcis20-56-0303 Miscellaneous Notes* Telephone Encounter - Kianna Newton MA - 09/19/2024 1:48 PM EST Recent Visits Date Type Provider Dept 07/03/24 Office Visit Jose Clarke DO [facility] 02/07/24 Office Visit Jose Clarke DO [facility] 11/08/23 Office Visit Jose Clarke DO [facility] Showing recent visits within past 365 days and meeting all other requirements Future Appointments Date Type Provider Dept 10/30/24 Appointment Jose Clarke DO [facility] Showing future appointments within next 90 [...] CREATININE 1.56 (H) 07/03/2024 documented in this [facility]11-25-2024 Telephone encounter Note* Telephone Encounter - Adina Jaki Westbrook - 09/17/2024 9:04 AM EST Medication [...] prior to picking up the medication: Yes [facility] CenterTiwhun93-63-5001 Miscellaneous Notes* Telephone Encounter - Adina Westbrook [...] up the medication: Yes documented in this encounterSCleveland ClinicCkydph47-88-3542 Telephone encounter Note* Telephone Encounter - Idalia Pierce MA - 09/11/2024 10:28 AM EST Pended Recent Visits Date Type Provider Dept 07/03/24 Office Visit Jose Clarke DO [facility] 02/07/24 Office Visit DO [facility] 11/08/23 Office Visit Jose Clarke DO [facility] Showing recent visits within past 365 days and meeting all other requirements Future Appointments Date Type Provider Dept 10/30/24 Appointment Jose Clarke DO [facility] Showing future appointments within next 90 days and meeting all other requirements Requested Prescriptions Pending Prescriptions Disp Refills hydrALAZINE (Apresoline) 25 MG tablet [Pharmacy Med Name: hydrALAZINE HCl 25 MG Oral Tablet] 240 tablet 1 Sig: TAKE 1 TABLET BY MOUTH 3 TIMES DAILY Provider: Jose Clrake DO Verified pharmacy: yes Verified day(s) supplied: yes Verified refill(s) needed (previous prescription showing no refills in chart): Yes Have you received any controlled medications from any other provider? N/A Overdue for visit: N/A If yes - patient scheduled? N/A Most recent labs completed in chart? N/A [facility] Ocibav75-52-1615 Miscellaneous Notes* Telephone Encounter - Idalia Pierce MA - 09/11/2024 10:28 AM EST Pended Recent Visits Date Type Provider Dept 07/03/24 Office Visit Jose Clarke, DO [facility] 02/07/24 Office Visit Jose Clarke DO [facility] 11/08/23 Office Visit Jose Clarke DO [facility] Showing recent visits within past 365 days and meeting all other requirements Future Appointments Date Type Provider Dept 10/30/24 Appointment Jose Clarke DO [facility] Showing future appointments within next 90 [...] completed in chart? N/A documented in this [facility]09-19-2024 Telephone encounter Note* Telephone Encounter - Sangita Quesada MA - 07/12/2024 9:40 AM EDT Rx loaded [facility] CenterVjwuje19-95-5797 Miscellaneous Notes* Telephone Encounter - Sangita Quesada [...] (see medication tab): 12.14.2023 documented in this [facility]09-19-2024 Telephone encounter Note* Telephone Encounter - Rob [...] of last refill (see medication tab): 12.14.2023 [facility] CenterRdavbp38-56-4504 History of Present illness Narrative* Jose Clarke, DO - 07/03/2024 8:30 AM EDT Images from the original note were not included. [facility] [address] [facility] [facility] [address] [facility] [address] Dept: [phone] Dept Chief Complaint: Brian Joshi is an [...] Annual Wellness Visit Never done COVID-19 Vaccine ( - season) 2024 Influenza Vaccine (1) 06/24/2024 DTaP/Tdap/Td [...] Lipid panel 3. Coronary artery disease involving [place] coronary artery of [place] heart without angina pectoris Stable, continue all meds and aspiri 4. Type 2 diabetes mellitus with chronic kidney disease, without long-term current use of insulin, unspecified CKD stage (HCC) Stable, continue glimepiride and low-carb meals 5. Encounter for subsequent annual wellness visit (AWV) in Medicare patient Exercise 150 minutes/week. Continue all other meds and obtain vaccinations as discussed documented in this [facility]09-10-2024 Instructions* Patient Instructions* Jose Clarke DO - [...] Recommendations: A preventive eye exam by an assurance specialist is recommended every 1-2 years to screen for glaucoma, cataracts, macular degeneration, and other eye disorders. A preventive dental visit is recommended every 6 months. Try to get at least 150 minutes of exercise per week or 10,000 steps per day on a pedometer. You need 1200-1500mg of calcium and 2244-9526 international units of vitamin D per day. [...] bicycle or a motorcycle documented in this [facility]08-26-2024 Telephone encounter Note* Telephone Encounter - Paulette Pike MA - 06/18/2024 8:14 AM EDT Recent Visits Date Type Provider Dept 02/07/24 Office Visit Jose Clarke, DO [facility] 11/08/23 Office Visit Jose Payton Brianleena DO [facility] Showing recent visits within past 365 days and meeting all other requirements Future Appointments Date Type Provider Dept 07/03/24 Appointment Jose Clarke DO [facility] [...] 06/17/2022 [facility] 02/07/2024 [facility] 93 06/17/2022 [facility] CenterGfhqbs81-18-3145 Miscellaneous Notes* Telephone Encounter - Paulette Pike MA - 06/18/2024 8:14 AM EDT Recent Visits Date Type Provider Dept 02/07/24 Office Visit Jose Payton Evy DO [facility] 11/08/23 Office Visit Jose Payton DO Evy [facility] Showing recent visits within past 365 days and meeting all other requirements Future Appointments Date Type Provider Dept 07/03/24 Appointment Jose Clarke DO [facility] Showing future appointments within next 90 [...] 02/07/2024 [facility] 93 06/17/2022 documented in this [facility]06-11-2024 Telephone encounter Note* Telephone Encounter - Kianna Newton MA - 04/03/2024 9:38 AM EDT Recent Visits Date Type Provider Dept 02/07/24 Office Visit Jose Clarke DO [facility] 11/08/23 Office Visit Jose Clarke DO [facility] 06/14/23 Office Visit Jose Clarke DO [facility] [place] Showing recent visits within past 365 days and meeting all other requirements Future Appointments Date Type Provider Dept 05/22/24 Appointment Jose Clarke DO [facility] Showing future appointments within next 90 [...] 06/17/2022 [facility] 02/07/2024 [facility] 93 06/17/2022 [facility] CenterRxjbuy62-92-1271 Miscellaneous Notes* Telephone Encounter - Kianna Newton MA - 04/03/2024 9:38 AM EDT Recent Visits Date Type Provider Dept 02/07/24 Office Visit Jose Clarke DO [facility] 11/08/23 Office Visit Jose Clarke DO [facility] 06/14/23 Office Visit Jose Clarke DO [facility] [place] Showing recent visits within past 365 days and meeting all other requirements Future Appointments Date Type Provider Dept 05/22/24 Appointment Jose Clarke DO [facility] [place] Showing future appointments within next 90 [...] 93 06/17/2022 * Telephone Encounter - Shauna Lawtonjavier - 04/03/2024 9:12 AM EDT Ordering provider: Dr Clarke Date of last office visit: 02/07/2024 Date of next office visit: 05/22/2024 Updated/Validated preferred pharmacy: Yes Patient instructed to contact the pharmacy prior to picking up the medication: No (1) Medication name: amLODIPine (Norvasc) 10 MG tablet [[id number]] Order Details Dose: 10 mg Route: Oral [...] Medication name: chlorthalidone (Hygroton) 25 MG tablet [[id number]] Order Details Dose: 25 mg Route: Oral [...] Medication name: hydrALAZINE (Apresoline) 25 MG tablet [[id number]] Order Details Dose, Route, Frequency: As Directed [...] Medication name: glimepiride (Amaryl) 2 MG tablet [[id number]] Order Details Dose: 2 mg Route: Oral [...] (5) Medication name: lisinopril 40 MG tablet [[id number]] Order Details Dose: 40 mg Route: Oral [...] (see medication tab): 12/14/2023 documented in this [facility]06-11-2024 Telephone encounter Note* Telephone Encounter - Shauna Rainey - 04/03/2024 9:12 AM EDT Ordering provider: Dr Clarke Date of last office visit: 02/07/2024 Date of next office visit: 05/22/2024 Updated/Validated preferred pharmacy: Yes Patient instructed to contact the pharmacy prior to picking up the medication: No (1) Medication name: amLODIPine (Norvasc) 10 MG tablet [[id number]] Order Details Dose: 10 mg Route: Oral [...] Medication name: chlorthalidone (Hygroton) 25 MG tablet [[id number]] Order Details Dose: 25 mg Route: Oral [...] Medication name: hydrALAZINE (Apresoline) 25 MG tablet [[id number]] Order Details Dose, Route, Frequency: As Directed [...] Medication name: glimepiride (Amaryl) 2 MG tablet [[id number]] Order Details Dose: 2 mg Route: Oral [...] (5) Medication name: lisinopril 40 MG tablet [[id number]] Order Details Dose: 40 mg Route: Oral [...] of last refill (see medication tab): 12/14/2023 [facility] CenterHpmfmu29-44-8536 Telephone encounter Note* Telephone Encounter - Anabela Bain MA - 02/28/2024 10:10 AM EDT Recent Visits Date Type Provider Dept 02/07/24 Office Visit Jose Clarke DO [facility] 11/08/23 Office Visit DO [facility] 06/14/23 Office Visit Jose Clarke DO [facility] [place] Showing recent visits within past 365 days and meeting all other requirements Future Appointments Date Type Provider Dept 05/22/24 Appointment Jose Clarke DO [facility] Showing future appointments within next 90 [...] Most recent labs completed in chart? N/A [facility] CenterBhvpaj53-81-5858 Miscellaneous Notes* Telephone Encounter - Anabela Bain MA - 02/28/2024 10:10 AM EDT Recent Visits Date Type Provider Dept 02/07/24 Office Visit Jose Clarke DO [facility] 11/08/23 Office Visit DO [facility] 06/14/23 Office Visit Jose Clarke DO [facility] Showing recent visits within past 365 days and meeting all other requirements Future Appointments Date Type Provider Dept 05/22/24 Appointment Jose Clarke DO [facility] Showing future appointments within next 90 [...] completed in chart? N/A documented in this [facility]04-22-2024 Telephone encounter Note* Telephone Encounter - Phyllis Lazara - 02/13/2024 3:10 PM EDT Medication name: Connor Medication dosage: Monthly quantity needed: How many [...] prior to picking up the medication: Yes [place] [id number] Miscellaneous Notes* Telephone Encounter - Phyllis Haile [...] up the medication: Yes documented in this [facility]04-22-2024 Telephone encounter Note* Telephone Encounter - Phyllis Haile - 02/13/2024 3:04 PM EDT Message released to patient as written. yes Patient's further questions if applicable: no Were all questions from office addressed or relayed to the patient from encounter: Patient stated he will need new prescription with increased dose [facility] days. [address]Oakomn59-32-1799 Miscellaneous Notes* Telephone Encounter - Phyllis Haile - 02/13/2024 3:04 PM EDT Message released to patient as written. yes Patient's further questions if applicable: no Were all questions from office addressed or relayed to the patient from encounter: Patient stated he will need new prescription with increased dose sent to [facility] for 90 days. * Telephone Encounter - Julieta Fleming LPN - 02/13/2024 2:27 PM EDT JONNATHAN - called to relay results * Telephone Encounter - Julieta Fleming LPN - 02/13/2024 2:26 PM EDT ----- Message from Kianna Newton MA sent at 02/13/2024 8:37 AM EDT ----- ----- Message ----- From: Jose Clarke DO Sent: 02/13/2024 8:34 AM EDT To: [facility] Clinical Senior Compensation Analyst Chemistry stable but hemoglobin A1c above goal of less than 8. He may need back on Lantus insulin again. For now increase glimepiride to 2 mg twice daily. He is to call with glucose levels in 1 month. Checkup in 3 months as directed documented in this encounterSCleveland ClinicTwzefu70-43-3814 Telephone encounter Note* Telephone Encounter - Julieta Fleming LPN - 02/13/2024 2:27 PM EDT LM - called to relay results [facility] CenterFzmrav98-05-9111 Telephone encounter Note* Telephone Encounter - Julieta Fleming LPN - 02/13/2024 2:26 PM EDT ----- Message from Kianna Newton MA sent at 02/13/2024 8:37 AM EDT ----- ----- Message ----- From: Jose Clarke DO Sent: 02/13/2024 8:34 AM EDT To: [facility] Clinical Senior Compensation Analyst Chemistry stable but hemoglobin A1c above goal of less than 8. He may need back on Lantus insulin again. For now increase glimepiride to 2 mg twice daily. He is to call with glucose levels in 1 month. Checkup in 3 months as directed [place] [id number] Telephone encounter Note* Telephone Encounter - Yue Alcantara - 02/07/2024 3:51 PM EDT Orders pended for doctor signature [address]Wshuyp87-08-0261 Miscellaneous Notes* Telephone Encounter - Yue Alcantara - 02/07/2024 3:51 PM EDT Orders pended for doctor signature documented in this encounterSKristy [place] [address]Xfkwyc72-57-2357 History of Present illness Narrative* Jose Clarke DO - 02/07/2024 11:00 AM EDT Images from the original note were not included. [facility] [address] [place] [address] [address] [facility] [address] Visit type: Established Patient Reason [...] right hand contracture release per orthopedist in [place] about a year and a half ago. [...] Mother age 82 Coronary artery disease Father [place], age 57 No Known Problems Sister Diabetes [...] pyogenic granuloma or squamouscell. documented in this encounterSCleveland ClinicDttpve36-01-9885 Evaluation note* Diagnosis Chronic kidney disease, stage 3a (HCC)- Primary Secondary hyperparathyroidism of renal origin (HCC) Secondary hyperparathyroidism (of renal origin) documented in this encounter [facility] CenterGcmjmn75-48-2684 Telephone encounter Note* Telephone Encounter - Robsergio Coombs - 12/21/2023 8:24 AM EST Medication [...] prior to picking up the medication: N/A [facility] CenterUasgdz39-84-3699 Miscellaneous Notes* Telephone Encounter - Rob Coombs [...] up the medication: N/A documented in this [facility]02-21-2024 Telephone encounter Note* Telephone Encounter - Davida [...] of last refill (see medication tab): 08/07/23 [facility]02-21-2024 Miscellaneous Notes* Telephone Encounter - Davida Moffett [...] (see medication tab): 08/07/23 documented in this [facility]01-16-2024 History of Present illness Narrative* Jose Clarke DO - 11/08/2023 8:30 AM EST Images from the original note were not included. [facility] [address] [facility] [facility] [address] Visit type: Established Patient Reason for Visit: [...] Zetia and Lipitor Coronary artery disease involving [place] coronary artery of [place] heart without angina pectoris Chronic left-sided lumbar [...] / Black CATARACT EXTRACTION Bilateral COLONOSCOPY 2004 [facility] COLONOSCOPY 2014 [facility] CORONARY ANGIOPLASTY WITH STENT PLACEMENT 03/2010 LAD coronary stent CYSTOSCOPY 08/2022 Dr. Costa, [place] HAND CONTRACTURE RELEASE Right 08/2022 Dr. Forde PARTIAL HIP ARTHROPLASTY Left 08/2022 Dr. Forde TRANSURETHRAL RESECTION OF PROSTATE 07/2020 Dr Costa Family History Problem Relation Name Age of Onset Colon cancer Mother age 82 Coronary artery disease Father [place], age 57 No Known Problems Sister Diabetes [...] tibial pulses are adequate. documented in this encounterSCleveland ClinicDygyzq04-03-2464 Telephone encounter Note* Telephone Encounter - Madhuri Robison LPN - 06/20/2023 1:09 PM EDT Rx loaded Next ov 10/06/23 [facility] CenterVwhycg10-23-3900 Miscellaneous Notes* Telephone Encounter - Mdahuri Robison LPN - 06/20/2023 1:09 PM EDT Rx loaded Next ov 10/06/23 * Telephone Encounter - Tonia Lance - 06/20/2023 9:21 AM EDT Ordering provider: Jose Clarke Date of last office visit: 06/14/23 Date of next office visit: 10/06/23 Updated/Validated preferred pharmacy: Yes [facility] [place] Patient instructed to contact the pharmacy prior [...] (see medication tab): 02/14/23 documented in this [address]28-2023 Telephone encounter Note* Telephone Encounter - Madhuri Robison LPN - 06/20/2023 9:29 AM EDT Rx loaded For mail pharmacy Next ov 10/06/23 [address]Mynudk11-33-5282 Miscellaneous Notes* Telephone Encounter - Madhuri Robison LPN - 06/20/2023 9:29 AM EDT Rx loaded For mail pharmacy Next ov 10/06/23 documented in this [address]28-2023 Telephone encounter Note* Telephone Encounter - Madhuri Robison LPN - 06/20/2023 9:28 AM EDT Rx loaded For short fill to local pharmacy [address]Tqkksv57-89-8557 Miscellaneous Notes* Telephone Encounter - Madhuri Robison [...] Emergency Supply of 15 tablets. [facility] [place] [place] for a 90 day supply Patient instructed to contact the pharmacy prior to picking up the medication: N/A (1) Medication name: glimepiride (Amaryl) Medication dosage: 1 mg (Miligrams Monthly quantity needed: 16 for [facility] 60 for [facility] [place] How many day supply requestin days for [...] (see medication tab): 02/16/23 documented in this [facility]08-28-2023 Telephone encounter Note* Telephone Encounter - Tonia Lance - 06/20/2023 9:21 AM EDT Ordering provider: Jose Clarke Date of last office visit: 06/14/23 Date of next office visit: 10/06/23 Updated/Validated preferred pharmacy: Yes [facility] [place] [place] Patient instructed to contact the pharmacy [...] of last refill (see medication tab): 02/14/23 [facility] Hfgrwm73-75-1822 Telephone encounter Note* Telephone Encounter - Tonia [...] next office visit: 10/06/23 Updated/Validated preferred pharmacy: [facility] for Emergency Supply of 15 tablets. [facility] [place] [place] for a 90 day supply Patient instructed to contact the pharmacy prior to picking up the medication: N/A (1) Medication name: glimepiride (Amaryl) Medication dosage: 1 mg (Miligrams Monthly quantity needed: 16 for [facility] 60 for [facility] [place] How many day supply requestin days for [...] of last refill (see medication tab): 02/16/23 [facility] Aaoehg87-81-1303 Telephone encounter Note* Telephone Encounter - Paulette [...] appt - 02/14/2023 Next appt - 06/14/2023 [facility] CenterMtnipz94-05-8509 Miscellaneous Notes* Telephone Encounter - Paulette Pike [...] Next appt - 06/14/2023 documented in this [facility]04-24-2023 History of Present illness Narrative* Jose Clarke DO - 02/14/2023 12:30 PM EDT Images from the original note were not included. [facility] [address] [place] [id number] Visit type: Established Patient Reason for Visit: ER Follow-up (For dehydration) Assessment / Plan: Brian was seen today for er follow-up. Diagnoses and all orders for this visit: Acquired left foot drop (Primary) Comments: New onset, continue PT. He defers CT imaging. Ankle-foot orthotic prescribed Coronary artery disease involving [place] coronary artery of [place] heart without angina pectoris Comments: Stable, continue [...] COLONOSCOPY 10/2004 Ahmed COLONOSCOPY 03/2015 Marshal- due 2019 CORONARY ANGIOPLASTY WITH STENT PLACEMENT 03/2010 LAD coronary stent CYSTOSCOPY 08/2022 Dr. Costa, Saulo HAND CONTRACTURE RELEASE Right 08/2022 Dr. Forde PARTIAL HIP ARTHROPLASTY Left 08/2022 Dr. Forde TRANSURETHRAL RESECTION OF PROSTATE 07/2020 Dr Costa Family History Problem Relation Name Age of Onset Colon cancer Mother age 82 Coronary artery disease Father [place], age 57 No Known Problems Sister Diabetes [...] tibial pulses are excellent. documented in this [facility]04-24-2023 Instructions* Patient Instructions* Jose Clarke DO - 02/14/2023 12:30 PM EDT Obtain left ankle-foot orthotic from physical therapist documented in this [place] [id number] Evaluation note* Diagnosis Chronic kidney disease, stage 3a (HCC)- Primary Secondary hyperparathyroidism of renal origin (HCC) Secondary hyperparathyroidism (of renal origin) [id number] Tele[facility] encounter Note* Telephone Encounter - Catalina Llanes RN - 12/06/2022 10:33 AM EST [id number] Miscellaneous Notes* Telephone Encounter - Catalina Llanes RN - 12/06/2022 10:33 AM EST Rx loaded * Telephone Encounter - Caroline Olivas - 12/06/2022 9:51 AM EST Name of caller: Brian Contact phone number: [phone] Relationship to Patient: patient Provider: Dr. Clarke Practice: [facility] Chief Complaint/Reason for Call: Pt is requesting [...] return their call: N/A documented in this [facility]02-13-2023 Telephone encounter Note* Telephone Encounter - Caroline Olivas - 12/06/2022 9:51 AM EST Name of caller: Brian Contact phone number: [phone] Relationship to Patient: patient Provider: Dr. Clarke Practice: [facility] Chief Complaint/Reason for Call: Pt is requesting [...] business hours to return their call: N/A [facility] Discharge instructions Additional Instructions Discharge home with family 09/13/2022, [facility] PT/OT/SN.[facility] Work Phone: Evaluation note* Diagnosis Pneumonia of right lower lobe due to infectious organism- Primary Septicemia (HCC) Unspecified septicemia Renal insufficiency Unspecified disorder of kidney and ureter Type 2 diabetes mellitus with other specified complication, unspecified whether half-way insulin use (HCC) documented in this encounter [facility] Work Phone: Evaluation note* Diagnosis Acute hip pain, left Acute left-sided low back pain with left-sided sciatica documented in this encounter [facility]CASH Phone: Evaluation noteNo assessment information available [facility] Work Phone: Evaluation note* Diagnosis Onset Date Resolution Status Closed fracture of left hip acute Fall acute Status post placement of cardiac pacemaker [facility] Work Phone: Evaluation note* Diagnosis Onset Date Resolution Status Bladder neck contracture acu te Closed fracture of left hip acute Fall acute 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 Chronic kidney disease, stage 3b acute Closed fracture of left hip acute Coronary artery disease acut e Debility acute Diabetes mellitus acute Hyperlipidemia acute HTN (hypertension) chronic [facility] Work Phone: Evaluation note* Diagnosis Acquired left foot drop- Primary Coronary artery disease involving [place] coronary artery of [place] heart without angina pectoris Stage 3a chronic kidney disease (HCC) Essential hypertension Unspecified essential hypertension Type 2 diabetes mellitus with chronic kidney disease, without long-term current use of insulin, unspecified CKD stage (HCC) Chronic left-sided lumbar radiculopathy [facility]* Diagnosis Type 2 diabetes mellitus with chronic kidney disease, without long-term current use of insulin, unspecified CKD stage (HCC)- Primary Essential hypertension Unspecified essential hypertension Stage 3b chronic kidney disease (HCC) Hypercholesterolemia with hypertriglyceridemia Coronary artery disease involving [place] coronary artery of [place] heart without angina pectoris Chronic left-sided lumbar [...] Hypercholesterolemia with hypertriglyceridemia Coronary artery disease involving [place] coronary artery of [place] heart without angina pectoris Type 2 diabetes [...] kidney disease (HCC) Coronary artery disease involving [place] coronary artery of [place] heart without angina pectoris Essential hypertension Unspecified [...] kidney disease (HCC) Coronary artery disease involving [place] coronary artery of [place] heart without angina pectoris Hypercholesterolemia with hypertriglyceridemia Right thalamic stroke (HCC) Hypoglycemic event due to diabetes (HCC) Other constipation [facility] Diagnosis Type 2 diabetes mellitus with stage 3b chronic kidney disease, with long-term current use of insulin (HCC)- Primary Coronary artery disease involving [place] coronary artery of [place] heart without angina pectoris Essential hypertension Unspecified essential hypertension Hypercholesterolemia with hypertriglyceridemia Balanitis Balanoposthitis Stage 3b chronic kidney disease (HCC) [facility] Diagnosis Onset Date Resolution Status Admit Date Chronic kidney disease, stage 3b acu te April 28, 2025 12:42pm Closed fracture of neck of r ight femur acute April 28, 2025 1 2:42pm Coronary artery disease acute J papito 2024 12:42pm Debility acute April 28, 2025 12:42pm Diabetes mellitus acute April 12:42pm Fall acute April 28, 2025 12:42pm History of CVA (cerebrovascu lar accident) acute April 28, 2025 1 2:42pm Inability to ambulate due to hip acu te April 28, 2025 12:42pm HTN (hypertension) chronic April 282024 12:42pm Status post placement of car diac pacemaker chronic April 28, 2025 1 2:42pm [facility] Work Phone: History and physical note Author Juventino Jorge [facility] Note Date/Time April 28, 2025 2:14p m [facility] Medical Records Department [address] [place] [address] H&P Exam - Hospitalist 04/28/25 1232 MR#: [id number] Acct: [id number] Name: BRIAN JOSHI Rep #:[id number] 12 : 1940 85 From: Juventino Rendon PCP: Dr. Jose Clarke, DO Status:AD M IN Location: [facility] NH856-2 HPI - General General Date of Admission: 04/28/25 Date of Service: 04/28/25 Chief Complaint: Fall and right hip pain. HPI Narrative BRIAN JOSHI, is a 85 M came to ED after he fell down on the right side while doing gardening and carrying some weight of weedicide and then not able tostand up or ambulate. Patient stated while carrying some weight, he lost balance on the grass and fell on the right side, hurt his knee with bruise and right elbow and hand. There is some bruise on the right elbow. Patient feels soreness over right hip area. He denies dizziness, palpitation, chest pressure tightness or shortness of breath. He did not pass out/LOC. Did not hit head. He already had left hip hemiarthroplasty. X-ray done of right hip which reported normal but clinically there is not out ofright hip fracture and acute debility, not able to do ADL therefore being admitted. [facility] Medical History HLD (hyperlipidemia) Hypertension Stage 3b chronic kidney disease Coronary artery disease Benign prostatic hyperplasia Diabetes mellitus, type 2 Pacemaker Home Medications ?Medication ?Instructions ?Recorded ?Last Taken ?Type hydralazine 100 mg tablet 25 mg PO TID BP 12/16/1603/14 07:00 History lisinopril 40 mg tablet 40 mg PO DAILY BP 06/13/20 1 10/28/21 07:00 History aspirin 81 mg tablet 81 mg PO DAILY Heart 1 08/28/22 07:00 History glimepiride 1 mg tablet 2 mg PO BID Diabetes 1 08/28/22 07:00 History atorvastatin 80 mg tablet 80 mg PO QHS HYPERLIPIDEMIA 08/28/22 08/27/22 18:00 History acetaminophen 500 mg tablet 1,000 mg (2 x 500 mg) PO Q 8 pain 09/08/22 Unknown Rx #0 tabs amlodipine 10 mg tablet 10 mg PO DAILY blood pressur e 30 09/08/22 Unknown Rx days #30 tabs chlorthalidone 25 mg tablet 25 mg PO DAILY 12/17/24 Un known History ezetimibe 10 mg tablet 10 mg PO DAILY cholesterol 0 12/17/24 Unknown History insulin glargine 100 unit/mL (3 10 unit subcut DAILY d iabetes 12/17/24 Unknown History mL) subcutaneous pen (Lantus Solostar U-100 Insulin) ondansetron 4 mg disintegrating 4 mg PO Q6H PRN PRN Na usea #15 tabs 12/17/24 Unknown Rx tablet Allergy/AdvReac Type Severity Reaction Status Date / Time No Known Allergies Allergy Verified 04/28/25 10:06 Family History Mother Colon cancer Diagnosed age [...] type: does not use ROS ROS Narrative Constitutional: Reports fatigue and weakness. No fever. HEENT: Reports systems reviewed and no addt'l complaints, except as documented Respiratory/Chest: No acute shortness of breath or respiratory distress or wheezing. No history of smoking. CVS: No chest pain or shortness of breath. Left subclavicular pacemaker. Gastrointestinal: Denies coffee ground emesis, hematemesis or vomiting Genitourinary: Denies burning urination or new urinary tract symptoms Musculoskeletal: Left hip replacement. Rest as described in HPI. Neurologic: Denies seizure-like symptoms. skin: No ulcer. Some bruise on the right knee Endocrinology: Reports systems reviewed and no addt'l complaints, except as documented Hematologic/Lymphatic: Reports systems reviewed and no addt'l complaints, exceptas documented Rest 14 ROS are negative except as mentioned in HPI Vital Signs Vital Signs Vital Signs: 04/28/25 10:07 04/28/25 10:10 04/28/25 12:06 Temperature 97.9 F Temperature Source Oral Pulse Rate 67 71 Respiratory Rate 16 16 Respiratory Effort Normal Non-Labored Respiratory Depth Normal Respiratory Pattern Normal Blood Pressure 143/69 H 138/64 H Blood Pressure Mean 93 88 Pulse Ox 95 99 Oxygen Delivery Method Room Air Weight Weight: 191 lb 12.835 oz Body Mass Index (BMI) 25.9 Physical Exam Narrative General: Alert, Oriented x3, Cooperative HEENT: Atraumatic, PERRLA, EOMI, Normocephalic. Oral: Oral mucosa dry no Gingival or Mucosal Lesions/ Ulcerations Neck: Supple, No JVD, Negative Carotid Bruits Chest wall/Lungs: Air entry equal in bilateral lung bases. No crepitation/rhonchi Cardiovascular: Regular rate and rhythm, Normal S1,S2, No M/G/R. Late circular pacemaker Abdomen: Bowel Sounds Present, Soft, Non Tender, Non-Distended : No dysuria. No renal angle tenderness. No suprapubic tenderness. Extremities: No edema, Capillary Refill Less than 3 Seconds Skin: Right knee has bruising but no active bleeding. Left elbow and forearm has cutaneous black discoloration seems old bruises patient states happened today Musculoskeletal: Tenderness over right hip joint. Right hip sore on abduction and adduction, complete ROM, muscle power assessment not attempted. Status postleft hemiarthroplasty Neurological: Cranial nerves II-XII grossly intact, DTR 2+/4. No acute focal neurological deficit. Psych/Mental Status: Flat affect Results Lab / Micro Data 04/28/25 11:45 04/28/25 11:45 Labs: Laboratory Results - last 24 hr 04/28/25 11:45: WBC 13.0 H, RBC 4.28 L, Hgb 13.4, Hct 40.4, MCV 94.4 H, MCH 31.3, MCHC 33.2, RDW Std Deviation 44.2 H, RDW Coeff of Facundo 12.8, Plt Count 331,MPV 9.5, Immature Gran % (Auto) 1.000 H, Neut % (Auto) 82.2 H, Lymph % (Auto) 10.0 L, [place] % (Auto) 5.7, Eos % (Auto) 0.3, Baso % (Auto) 0.8, Absolute Neuts (auto) 10.7 H, Absolute Lymphs (auto) 1.30, Nucleated RBC % 0, Blood Type A NEGATIVE, Antibody Screen NEGATIVE Assessment & Plan Assessment/Plan (1) Inability to ambulate due to hip: (2) Debility: PLAN: Plan This is a 85-year-old gentleman being admitted after a fall with acute debility,inability to do ADL and concern for right hip fracture 1. Acute debility/inability to ADL and concern for right hip fracture: Patient is being admitted in MedSur floor. Clinical concern for right hip fracture butright hip x-ray reported normal-appearing right hip but images reviewed with ED physician there is small/faint line of fracture at the base of neck of hip. CT right hip ordered. Orthopedic surgeon, Dr. Leggett consulted. PT and OT and pain control ordered. Patient has mild soreness but tenderness at hip joint. 2. CAD status post cardiac stent and left subclavicular pacemaker: Twelve-lead EKG done in the ER, NSR normal ECG 68 bpm. QTc 440 ms. Chest x-ray initially reviewed no acute finding. Baby aspirin continued. 3. DM type II: A1c 7.2%. Glucose 164 mg/dL. Accu-Chek before meals and at bedtime with Humalog sliding scale coverage and hypoglycemia protocol. 4. CKD stage IIIb: BUN/creatinine 33/1.65. BUN/creatinine was 35/1.86 during previous admission in November 2024 when he was admitted for vertigo. Serum electrolytes in normal range. Half-normal saline IV fluid ordered. Hold glimepiride. On Lantus 10 units subcutaneous daily, continued with holding parameters. Hypoglycemia protocol. 5. Hypertension: Continue amlodipine. Chlorthalidone and lisinopril held as there is potential plan of hip surgery if hip fracture is confirmed on the CT scan. Monitor BP and titrate the medications 6. Dyslipidemia: Continue atorvastatin ezetimibe. 7. DVT prophylaxis: High risk. Heparin 5000 units subcutaneous 3 times daily ordered. Bilateral SCDs Living will/advanced directive/end of life care: Patient does not living will oradvanced directive. He has reviewed power of management trainee marketing for health his daughter. After discussion of benefits/risks procedures involved with full code, DNR CC arrest and DNR CC, the patient opted for DNR CC arrest with no intubation Patient doesn't want artificial life support including intubation, tube feed, ventilator and/chest compression, central venous catheter, vasopressor and DC shock if needed Total time spent in hnsy-sp-jeat encounter in discussion of advanced directive 17 minutes. Clinical Impression(s) from Imaging Studies Hip/Pelvis X-Ray 04/28/25 10:42 IMPRESSION: 1. Normal-appearing right hip. 2. Other findings as noted. Chest X-Ray 04/28/25 11:31 IMPRESSION: No Acute Findings. Laboratory Results 04/28/25 11:45: WBC 13.0 H, RBC 4.28 L, Hgb 13.4, Hct 40.4, MCV 94.4 H, MCH 31.3, MCHC 33.2, RDW Std Deviation 44.2 H, RDW Coeff of Facundo 12.8, Plt Count 331,MPV 9.5, Immature Gran % (Auto) 1.000 H, Neut % (Auto) 82.2 H, Lymph % (Auto) 10.0 L, [place] % (Auto) 5.7, Eos % (Auto) 0.3, Baso % (Auto) 0.8, Absolute Neuts (auto) 10.7 H, Absolute Lymphs (auto) 1.30, Nucleated RBC % 0, Sodium 142, Potassium 4.5, Chloride 107, Carbon Dioxide 24.3, Anion Gap 11, BUN 33 H, Creatinine 1.65 H, Estim Creat Clear Calc 36.58 L, Est GFR (MDRD) Non-Af 41 L, BUN/Creatinine Ratio 20.1 H, Glucose 164 H, Hemoglobin A1c 7.2 H, Calcium 9.1, Blood Type A NEGATIVE, Antibody Screen NEGATIVE There was some delay about 10 minutes including admitting her because at the same time rapid response was called in the main entrance parking lot. And had to go to take care of the rapid response. Charges/Coding Visit Charges Inpatient E&M: 88879 Disch Hosp >30min Procedures Hospitalists Procedures: 17431 Advncd Care Plan 30 Min 04/28/25 1414 <Electronically signed by Juventino Patel MD> Cosigner Signature (if applicable): CC: Dr. Jose Clarke DO; Dr. Juventino Patel MD~ Signed [facility] Work Phone: Hospital Discharge instructions* Attachments The following attachments cannot be sent through Care Everywhere. * Pneumonia ([place]) [facility] Hospital Discharge instructions Additional Instructions Plenty of fluids and rest. Hold the medication furosemide. Follow-up with either your primary care physician or Dr. Pastor Vines for further evaluation.[facility] Work Phone: Reason for referral (narrative)* Consultation (Routine) - Pending Review Specialty Diagnoses / Procedures Referred By Dioni hill Referred To Contact Orthodontics Diagnoses Skin lesion of hand Jose Clarke DO [address] [place] [address] Jaziel Forde DO [address] [place] [address] Referral ID Status Reason Start Date Expiration Date Visits Requested Visits Authorized [id number] Pending Review Specialty Services Required 02/07/2024 02/06/2025 1 1 Laura Arnold for referral (narrative)No reason for referral information [facility] Work Phone: Summary Purpose Family History Relationship Condition Age at Onset Recorded Date/T hiwot mother Malignant neoplasm of colon Unknown father Cardiac disease Unknown Hypertension Unknown Myocardial infarction Unknown Coronary artery disease Unknown Advance Directives Documents on File Type Date Recorded Patient Filer Finish Expl anation Advance Directives and Living Will Power of Meter Tester Latest Code Status on File Code Status Date Activated Date Inactivated Comments Full Code 12/23/2017 11:02 AM 12/24/2017 6:01 PM Full Code 12/23/2017 7:59 AM 12/23/2017 11:02 AM Documents on File Type Date Recorded Patient Filer Finish Expl anation ACP-Advance Directive ACP-Power of Meter Tester Advance Directive Response Recorded Date/ Time Living Will Yes April 23, 2021 2 :58pm Power of Meter Tester Yes April 23, 2021 2:58pm Advance Directive Response Recorded Date/ Time Living Will Yes August 28 4:38pm Power of Meter Tester Yes August 28, 2022 4:38pm Name of Medical Power of Meter Tester DAUGHTER August 28, 2022 4:38pm Advance Directive Response Recorded Date/ Time Name of Medical Power of Meter Tester Paz Fonseca August 28, 2022 7:21pm Name of Medical Power of Meter Tester Paz Fonseca, daughter September 03, 2022 10:23am Living Will Yes September 03 10:23am Power of Meter Tester Yes September 03, 2022 10:23am Documents on File Type Date Recorded Patient Filer Finish Expl anation DNR (Do Not Resuscitate) 12/22/2015 Advance Directive Response Recorded Date/ Time Living Will Yes February 03, 2023 10:49am Power of Meter Tester Yes February 03 10:49am Name of Medical Power of Meter Tester PAZ FONSECA February 03, 2023 10:49am Documents on File Type Date Recorded Patient Filer Finish Expl anation DNR (Do Not Resuscitate) 12/22/2015 Advance Directive Response Recorded Date/ Time Do you have a Healthcare Power of Meter Tester? Yes April 28, 2025 10:10am Chief Complaint Chief Complaint Description Start Date left thumb finger Preliminary chief co mplaint data, not yet signed by the author as of Instructions Instruction Description Start Date CompletedPlease follow-up wi th Primary Care Physician or Supervisor Stave Cutting for treatment or adjustment of medication regarding [...] Hyperlipidemia HTN (hypertension) Chief Complaint NEAR SYNCOPE Chief Complaint Admit Date FALL RIGHT HIP FRACTURE April 28, 2025 1 2:42pm Reason for Visit Admit Date Chronic kidney disease, stage 3b April 12:42pm Closed fracture of neck of right femur J papito 2024 12:42pm Coronary artery disease April 28, 2025 1 2:42pm Debility April 28, 2025 12:42 pm Diabetes mellitus April 28, 2025 12:42 pm Fall April 28, 2025 12:42 pm History of CVA (cerebrovascular accident ) April 28, 2025 12:42pm Inability to ambulate due to hip April 12:42pm HTN (hypertension) April 28, 2025 12:42 pm Status post placement of cardiac pacemak er April 28, 2025 12:42pm Additional Source Comments (unrecognized sect ion and content) No Status Records FoundNo Status Records FoundNo Status Records FoundNo Status Records FoundNo Status Records Found INFORMATION SOURCE (unrecogn ized section and content) DATE CREATED AUTHOR 08/08/2018 [facility] Cherelle colmenares Roland DATE CREATED AUTHOR AUTHOR'S ORGANIZ ATION 12/12/2018 [facility] DATE CREATED AUTHOR AUTHOR'S ORGANIZ ATION 03/12/2022 [facility] DATE CREATED AUTHOR AUTHOR'S ORGANIZ ATION 01/11/2025 [facility] DATE CREATED AUTHOR AUTHOR'S ORGANIZ ATION 04/09/2025 [facility] Reason for Visit (unrecogniz ed section and [...] Administer over 0.5 Hours, ONCE, On Nadja 7/1/21 at 0916, For 1 dose 0936 (New [...] dose, On Nadja 04/23/21 at 1052 1055 (Kei Bag - Prov ider: Cleo Coombs, RN)1157 (Stopped - Provider: Cleo Coombs, RN) Care Teams (unrecognized sec tion and content) Manager Transfer Relationship Specialty Start Date End Date Jose Clarke DO [address] [place] [id number] PCP - General 03/27/15 Manager Transfer Relationship Specialty Start Date End Date Jose Clarke DO [address] [place] [id number] PCP - General 10/24/18 Team Status: Active Member Role Status Dates Dr. Jose Clarke DO Family Provider Active Dr. Jose Clarke DO Primary Care Provider Active Team Status: Inactive Member Role Status Dates Dr. Jose Clarke DO Primary Care Provider Active Dr. Ayaan Quesada MD Emergency Provider Active Manager Transfer Relationship Specialty Start Date End Date Jose Clarke DO [address] [place] [phone] PCP - General 10/24/18 Manager Transfer Relationship Specialty Start Date End Date Jose Clarke DO [address] [place], [place] [phone] PCP - General 10/24/18 Manager Transfer Relationship Specialty Start Date End Date Jose Clarke, DO [address] [place] [address] PCP - General 10/24/18 Manager Transfer Relationship Specialty Start Date End Date Jose Clarke, DO [address] [place] [address] PCP - General 10/24/18 Manager Transfer Relationship Specialty Start Date End Date Jose Clarke, DO [address] [place] [address] PCP - General 10/24/18 Manager Transfer Relationship Specialty Start Date End Date Jose Clarke, DO [address] [place] [address] PCP - General 10/24/18 Manager Transfer Relationship Specialty Start Date End Date Jose Clarke, DO [address] [place] [phone] PCP - General 10/24/18 Manager Transfer Relationship Specialty Start Date End Date Jose Clarke DO [address] [place] [phone] PCP - General 10/24/18 Manager Transfer Relationship Specialty Start Date End Date Jose Clarke, DO [address] [place] [phone] PCP - General 10/24/18 Manager Transfer Relationship Specialty Start Date End Date Evy Jose Payton, DO [address] [place] [address] PCP - General 10/24/18 Manager Transfer Relationship Specialty Start Date End Date Evy Jose Payton, DO [address] [place] [phone] PCP - General 10/24/18 Manager Transfer Relationship Specialty Start Date End Date Evy Jose Payton, DO [address] [place] [phone] PCP - General 10/24/18 Manager Transfer Relationship Specialty Start Date End Date Evy Jose Payton, DO [address] [place] [phone] PCP - General 10/24/18 Manager Transfer Relationship Specialty Start Date End Date Evy Jose Payton, DO [address] [place] [phone] PCP - General 10/24/18 Manager Transfer Relationship Specialty Start Date End Date Evy Jose Payton, DO [address] [place] [id number] PCP - General 10/24/18 Manager Transfer Relationship Specialty Start Date End Date Evy Jose Payton, DO [address] [place] [phone] PCP - General 10/24/18 Manager Transfer Relationship Specialty Start Date End Date Jose Clarke Tata, DO [address] [place] [address] PCP - General 10/24/18 Manager Transfer Relationship Specialty Start Date End Date Jose Clarke Tata, DO [address] [place] [address] PCP - General 10/24/18 Manager Transfer Relationship Specialty Start Date End Date Jose Clarke Tata, DO [address] [place] [address] PCP - General 10/24/18 Manager Transfer Relationship Specialty Start Date End Date Jose Clarke, DO [address] [place] [address] PCP - General 10/24/18 Manager Transfer Relationship Specialty Start Date End Date Jose Clarke, DO [address] [place] [address] PCP - General 10/24/18 Manager Transfer Relationship Specialty Start Date End Date Jose Clarke Tata, DO [address] [place] [address] PCP - General 10/24/18 Manager Transfer Relationship Specialty Start Date End Date Jose Clarke, DO [address] [place] [address] PCP - General 10/24/18 Manager Transfer Relationship Specialty Start Date End Date Jose Clarke, DO [address] [place] [address] PCP - General 10/24/18 Manager Transfer Relationship Specialty Start Date End Date AngelineJose gillette DO [address] [place] [phone] PCP - General 10/24/18 Manager Transfer Relationship Specialty Start Date End Date BrianJose stern DO [address] [place] [address] PCP - General 10/24/18 Manager Transfer Relationship Specialty Start Date End Date Evy Jose Payton [address] [place] [address] PCP - General 10/24/18 Manager Transfer Relationship Specialty Start Date End Date BrianJose stern DO [address] [place] [address] PCP - General 10/24/18 Manager Transfer Relationship Specialty Start Date End Date EvyJose DO [address] [place] [address] PCP - General 10/24/18 Manager Transfer Relationship Specialty Start Date End Date Evy Jose Payton DO [address] [place] [address] PCP - General 10/24/18 Team Status: Active Member Role/Relationship Status Dates Dr. Jose Clarke DO Primary Care Provider Active Team Status: Active Member Role/Relationship Status Dates Dr. Jose Clarke DO Primary Care Provider Active Start: April 28, 2025 Dr. Korey Noel MD Emergency Provider Active Sta rt: April 28, 2025 Dr. Buster Leggett MD Other Provider Active Sta rt: April 28, 2025 Dr. Juventino Patel MD Admit Provider Active Sta rt: April 28, 2025 Dr. Juventino Patel MD Attending Provider Active Start: April 28, 2025 Dr. Juventino Patel MD Other Provider Active Sta rt: April 28, 2025 Goals (unrecognized section and content) Goals may [...] BE BASED ON THE PRIMARY CLINICAL RECORDS. [facility]. provides no warranty or guarantee of the accuracy or completeness of information in this document.
[2025-04-28 16:46] LABS: Mucous, Urine 0 SEEN /hpf (<or=2+); Red Blood Cells-Urine 0 SEEN /hpf (0-5); Squamous Epithelial Cells - UA 0 SEEN /hpf (0-5)
[2025-04-28 16:50] LABS: Color, Urine Yellow (Yellow); Glucose, Dipstick Normal (Normal); Ketone-Dipstick Negative (Negative); Leukocyte Esterase-Dipstick Negative /ul (Negative); Nitrite-Dipstick Negative (Negative); Occult Blood-Urine Negative /ul (Negative); Protein-Dipstick 30 mg/dl (Negative); Specific Gravity, Urine 1.010 (1.002-1.030); Urine Bilirubin Dipstick Negative (Negative)
[2025-04-28] MEDS: Senna/Docusate Sodium 1 Tablet 2 TABLET PO (22:07)
[2025-04-29] VITALS (14 sets, daily range): BP systolic 138–166; BP diastolic 60–72; PULSE 67–76; RESP 15–18; TEMP 36.6–37.2; O2SAT 90–97; BMI 25.4
[2025-04-29 04:32] LABS: Hematocrit 37.0 % (40-54); Hemoglobin 12.1 g/dL (13.0-16.5); Immature Granulocytes Count 0.040 X10^3/uL (0.0-0.0); Mean Corp Hgb Conc 32.7 g/dL (32-36); Mean Corpuscular Volume 95.1 fL (80-94); Mean Platelet Vol. 9.9 fl (6.2-12.0); NRBC Flagged by Analyzer 0 % (0-5); Platelet Count 282 K/mm3 (150-450); RBC Distribution Width CV 12.8 % (11.6-14.6); RBC Distribution Width SD 44.7 fl (35.1-43.9); Red Blood Count 3.89 M/mm3 (4.6-6.2); White Blood Count 12.3 K/mm3 (4.4-11.0)
[2025-04-29 04:41] LABS: Partial Thromboplast Time 30.4 Seconds (24.1-36.2)
[2025-04-29 05:37] LABS: Anion Gap 9 (5-15); BUN 37 mg/dL (4-19); BUN/Creat Ratio 21.7 RATIO (10-20); Calcium,Total 8.3 mg/dL (7.6-11.0); Carbon Dioxide 24.4 mmol/L (21.0-32.0); Chloride 106 mmol/L (98-108); Estimated Creatinine Clearance 35.28 ml/min (50-250); Glucose 174 mg/dL (70-99); Potassium 3.8 mmol/L (3.3-5.1)
--- NOTE | 2025-04-29 07:09 | RAD_ITS ---
EXAM: INTRAOPERATIVE FLUOROSCOPY CLINICAL HISTORY: Right hip arthroplasty COMPARISON: Right ankle radiographs from 12/15/2014 TECHNIQUE: 6 intraoperative images are submitted for review. FINDINGS: The patient is status post right hip hemiarthroplasty with short serrated intramedullary stem component. Total fluoroscopy time 11.4 seconds, radiation dose 1.68 mGy. RAD/Hip Min 2 Views (Portable) IMPRESSION: Intraoperative fluoroscopy status post right hip hemiarthroplasty. Reading Location: [id number]
--- NOTE | 2025-04-29 12:27 | CONS.ORTHO ---
HPI Consult Data Date of Consult: 04/29/25 HPI Narrative Reason for Consultation: Right hip pain HPI Narrative: BRIAN OTERO, is a 85 M who presents today with a right femoral neck fracture. Patient is a 85-year-old male who fell yesterday while working in his garden and was unable to stand up and ambulate. He reports 6 out of 10 hip pain better with pain medications 2 or 2 out of 10. Pain is located in the hip and groin. Patient notes that he generally cares for his own house and garden he does live with his son. He lives independently. Does not use a cane or a walker. He was planning on [facility] this weekend on a trip with his friends. Patient's daughter is at bedside during the examination and interview and confirms this history. Patient denies any associated numbness and tingling. He was admitted to the hospitalist service last night and cleared for surgery today. [facility] Medical History HLD (hyperlipidemia) Hypertension Stage 3b chronic kidney disease Coronary artery disease Benign prostatic hyperplasia Diabetes mellitus, type 2 Pacemaker Home Medications ?Medication ?Instructions ?Recorded ?Last Taken ?Type hydralazine 100 mg tablet 25 mg PO TID BP 12/16/16 08/28/22 07:00 History lisinopril 40 mg tablet 40 mg PO DAILY BP 06/13/20 08/28/22 07:00 History aspirin 81 mg tablet 81 mg PO DAILY Heart 04/23/21 08/28/22 07:00 History glimepiride 1 mg tablet 2 mg PO BID Diabetes 04/23/21 08/28/22 07:00 History atorvastatin 80 mg tablet 80 mg PO QHS HYPERLIPIDEMIA 08/28/22 08/27/22 18:00 History acetaminophen 500 mg tablet 1,000 mg (2 x 500 mg) PO Q8 pain 09/08/22 Unknown Rx #0 tabs amlodipine 10 mg tablet 10 mg PO DAILY blood pressure 30 09/08/22 Unknown Rx days #30 tabs chlorthalidone 25 mg tablet 25 mg PO DAILY htn 12/17/24 Unknown History ezetimibe 10 mg tablet 10 mg PO DAILY cholesterol 12/17/24 Unknown History insulin glargine 100 unit/mL (3 10 unit subcut DAILY diabetes 12/17/24 Unknown History mL) subcutaneous pen (Lantus Solostar U-100 Insulin) ondansetron 4 mg disintegrating 4 mg PO Q6H PRN PRN Nausea #15 tabs 12/17/24 Unknown Rx tablet Allergy/AdvReac Type Severity Reaction Status Date / Time No Known Allergies Allergy Verified 04/28/25 10:06 Family History Mother Colon cancer Diagnosed age 83, passed age 84. Father Heart disease Hypertension Myocardial infarction CAD (coronary artery disease) Surgical History History of left hip hemiarthroplasty S/P TURP Status post placement of cardiac pacemaker H/O cardiac catheterization History of coronary artery stent placement Social History household members: family Smoking Status: Never smoker alcohol intake: never substance use type: does not use ROS ROS Narrative Outside of what is mentioned in the HPI 14 point review of systems is negative Vital Signs Vital Signs Vital Signs: 04/28/25 12:52 04/28/25 14:34 04/28/25 15:02 Temperature 97.6 F L 97.9 F Temperature Source Oral Pulse Rate 71 62 Respiratory Rate 16 18 Respiratory Effort Normal Non-Labored Respiratory Depth Normal Respiratory Pattern Normal Blood Pressure 138/64 H 130/51 H Blood Pressure Mean 88 77 Blood Pressure Source Monitor Blood Pressure Position Semi-Fowlers Blood Pressure Location Left Arm Pulse Ox 99 96 Oxygen Delivery Method Room Air Room Air 04/28/25 16:04 04/28/25 20:34 04/28/25 21:54 Temperature 98.2 F Temperature Source Oral Pulse Rate 72 Respiratory Rate 15 15 Respiratory Effort Normal Non-Labored Respiratory Depth Normal Respiratory Pattern Normal Blood Pressure 164/68 H Blood Pressure Mean 100 Blood Pressure Source Monitor Blood Pressure Position Semi-Fowlers Blood Pressure Location Right Arm Pulse Ox 96 94 Oxygen Delivery Method Room Air Room Air Room Air 04/28/25 22:07 04/29/25 05:00 04/29/25 08:03 Temperature 98.0 F Temperature Source Oral Pulse Rate 72 67 Respiratory Rate 15 Respiratory Effort Respiratory Depth Respiratory Pattern Blood Pressure 164/68 H 138/67 H Blood Pressure Mean 90 Blood Pressure Source Monitor Blood Pressure Position Semi-Fowlers Blood Pressure Location Right Arm Pulse Ox 92 95 Oxygen Delivery Method Room Air Room Air 04/29/25 08:51 Temperature 98.7 F Temperature Source Oral Pulse Rate 68 Respiratory Rate 18 Respiratory Effort Respiratory Depth Respiratory Pattern Blood Pressure 160/60 H Blood Pressure Mean 93 Blood Pressure Source Monitor Blood Pressure Position Semi-Fowlers Blood Pressure Location Right Arm Pulse Ox 96 Oxygen Delivery Method Room Air Weight Weight: 188 lb 0.869 oz Body Mass Index (BMI) 25.4 Physical Exam Const alert, oriented x3 and no apparent distress HEENT normocephalic Eyes PERRL Neck no JVD Resp normal respiratory effort Cardio Cardio Narrative: Regular pulse GI non-distended Extremity Extremity Narrative: Right lower extremity: Skin clean, dry, and intact. Limb is shortened and externally rotated Motor is intact dorsiflexion, EHL and plantar flexion. Sensation is intact to light touch saphenous, mari,l superficial peroneal, deep peroneal and tibial distributions. Calves are soft and supple. Neuro moves all extremities Psych affect normal Medical Records Data Attestation: I reviewed the patient's medical records Lab / Micro Data 04/29/25 04:00 04/29/25 04:00 Labs: Laboratory Results - last 24 hr 04/28/25 11:45: Sodium 142, Potassium 4.5, Chloride 107, Carbon Dioxide 24.3, Anion Gap 11, BUN 33 H, Creatinine 1.65 H, Estim Creat Clear Calc 36.58 L, Est GFR (MDRD) Non-Af 41 L, BUN/Creatinine Ratio 20.1 H, Glucose 164 H, Hemoglobin A1c 7.2 H, Calcium 9.1, Magnesium 1.8 04/28/25 16:31: POC Glucose 183 H 04/28/25 16:35: Urine Color Yellow, Urine Clarity Clear, Urine pH 7.0, Ur Specific [place] 1.010, Urine Protein 30 H, Urine Glucose (UA) Normal, Urine Ketones Negative, Urine Occult Blood Negative, Urine Nitrite Negative, Urine Bilirubin Negative, Urine Urobilinogen Normal, Ur Leukocyte Esterase Negative, Urine RBC 0 SEEN, Urine WBC 0 SEEN, Ur Squamous Epith Cells 0 SEEN, Urine Bacteria 0 SEEN, Urine Mucus 0 SEEN 04/28/25 22:16: POC Glucose 235 H 04/29/25 04:00: WBC 12.3 H, RBC 3.89 L, Hgb 12.1 L, Hct 37.0 L, MCV 95.1 H, MCH 31.1, MCHC 32.7, RDW Std Deviation 44.7 H, RDW Coeff of Facundo 12.8, Plt Count 282, MPV 9.9, Immature Gran % (Auto) 0.300, Neut % (Auto) 72.4 H, Lymph % (Auto) 14.4 L, Harrison % (Auto) 9.0, Eos % (Auto) 2.8, Baso % (Auto) 1.1 H, Absolute Neuts (auto) 8.9 H, Absolute Lymphs (auto) 1.78, Nucleated RBC % 0, APTT 30.4, Sodium 139, Potassium 3.8, Chloride 106, Carbon Dioxide 24.4, Anion Gap 9, BUN 37 H, Creatinine 1.70 H, Estim Creat Clear Calc 35.28 L, Est GFR (MDRD) Non-Af 39 L, BUN/Creatinine Ratio 21.7 H, Glucose 174 H, Calcium 8.3, TSH 1.170 04/29/25 06:40: POC Glucose 131 H 04/29/25 11:28: POC Glucose 106 Imaging Radiology Impression Hip/Pelvis X-Ray 04/28/25 10:42 IMPRESSION: 1. Normal-appearing right hip. 2. Other findings as noted. Reading Location: [id number] and personal review does show a subcapital femoral neck fracture with displacement. Chest X-Ray 04/28/25 11:31 IMPRESSION: No Acute Findings. Reading Location: [facility] Assessment & Plan Assessment/Plan (1) Closed fracture of neck of right femur: PLAN: Patient has close right subcapital femoral neck fracture. Natural history of disease process and treatment options were discussed with the patient. Nonoperative and operative interventions were discussed. Operative interventions including percutaneous screw fixation as well as hemiarthroplasty. Recommended hemiarthroplasty as appropriate treatment option. Patient has had a successful hemiarthroplasty on the contralateral side. Displacement would warrant knee arthroplasty over percutaneous pinning. We discussed patient's independent risk factors include diabetes including hemoglobin A1c of 7.2 and renal failure which is chronic. Patient's daughter was at bedside. After discussion of risk and benefits of the procedure which include but limited to blood loss, DVTs, PEs, nervous damage general risk of anesthesia, fractures, loss of life, loss of limb, dislocations the leg length discrepancies patient did wish to proceed with surgical intervention. Antibiotics on-call to the operating room. Patient is currently NPO.
[2025-04-29] MEDS: Lactated Ringers 1,000 ML 15 ML IV (12:43)
--- NOTE | 2025-04-29 13:03 | PCM.PRE.AN2 ---
ASA Classification* ASA Classification ASA Classification: 3 Assessment & Plan Anesthesia* Anesthesia Assessment Anesthesia Assessment: Discussed sedation and/or anesthesia options, risks, benefits, and alternatives with patient/parents/legal guardian/POA. Questions invited. The patient/parents/legal guardian/POA seems to understand and agrees to proceed with anesthesia plan. Reviewed the physical assessment, medical history, allergy history and patient home medications list prior to surgery/procedure/anesthetic and documented any changes. Performed airway and anesthesia risk assessments. Anesthesia Type Anesthesia Type: General (pacemaker in place) Anesthesia Focused Assessment* Temperature: 98.7 F Pulse Rate: 68 Blood Pressure: 160/60 Respiratory Rate: 18 Pulse Ox: 96 Airway Assessment Mouth opens: >3 cm Mallampati Score: II Labs Anesthesia Preop lab: CBC WBC 12.3 K/mm3 (4.4-11.0) H 04/29/25 04:00 04/29/25 RBC 3.89 M/mm3 (4.6-6.2) L 04/29/25 04:00 04/29/25 Hgb 12.1 g/dL (13.0-16.5) L 04/29/25 04:00 04/29/25 Hct 37.0 % (40-54) L 04/29/25 04:00 04/29/25 Plt Count 282 K/mm3 (150-450) 04/29/25 04:00 04/29/25 CHEMISTRY Potassium 3.8 mmol/L (3.3-5.1) 04/29/25 04:00 04/29/25 Sodium 139 mmol/L (133-145) 04/29/25 04:00 04/29/25 Magnesium 1.8 mg/dL (1.5-2.2) 04/28/25 11:45 04/28/25 BUN 37 mg/dL (4-19) H 04/29/25 04:00 04/29/25 Creatinine 1.70 mg/dL (0.70-1.20) H 04/29/25 04:00 04/29/25 Glucose 174 mg/dL (70-99) H 04/29/25 04:00 04/29/25 POC Glucose 106 mg/dL (74-106) 04/29/25 11:28 04/29/25 TSH 1.170 uIU/mL (0.300-4.200) 04/29/25 04:00 04/29/25 COAG PT 12.9 SECONDS (11.7-14.9) 08/28/22 18:47 08/28/22 Pre-Assessment Diagnosis/Proposed Procedure Planned Operative Procedure(s): Hemiarthroplasty right hip Anesthesia History 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 When Was Last Pacemaker Check January 2025 04/28/25 20:20 QUESTION #4 FULL TEXT: You/Your Family Experience fever (hyperthermia) with Anesthesia Last Oral Intake Last Oral intake: Last Oral Intake NPO since 00:00 04/29/25 08:51 Meds taken in AM with sips of Yes 04/29/25 08:51 water? Meds patient instructed to oxy 04/29/25 08:51 take am of surgery amlodipine PONV PONV - bottle line worker: PONV - bottle line worker Female HX of Motion Sickness HX of N/V After Surgery Non-Smoker Duration of Surgery greater than 60 minutes Number of Risk Factors PONV Score Height & Weight Height & Weight: Anesthesia: Height & Weight Height 6 ft 04/29/25 08:51 Weight: 85.3 kg 04/29/25 08:51 Body Mass Index (BMI) 25.4 04/29/25 08:51 Respiratory Assessment Respiratory Assessment - bottle line worker: Respiratory Tract Infection Hx - bottle line worker Hx Respiratory Tract Infection No 04/28/25 20:20 STOP Sleep Apnea STOP Sleep Apnea - bottle line worker: STOP Sleep Apnea - bottle line worker Hx Hypertension Yes 04/28/25 14:34 Hx Sleep Apnea No 04/28/25 14:34 CPAP BIPAP Do you snore loudly (louder No 04/28/25 14:34 than talking or can be heard Do you often feel tired/ No 04/28/25 14:34 fatigued/ sleepy during daytime? Has anyone observed you stop No 04/28/25 14:34 breathing during sleep? STOP Results Negative 04/28/25 14:34 QUESTION #5 FULL TEXT : Do you snore loudly (louder than talking or can be heard through closed doors)? 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 Specify any problems Hx of Preganancy in last 3 N/A 04/28/25 14:34 Months Nurse Filling Out Transfusion [id number] 04/28/25 14:34 & Questions: Date: 04/28/25 04/28/25 14:34 Time: 14:49 04/28/25 14:34 Patient unable to answer at this time (ie. confused, unrespo /Reproduction History /Reproductive History - bottle line worker: /Reproductive Hx- bottle line worker Hx Now No 04/28/25 20:20 Gestational Age (in weeks): EDC: Hx Hx Para Hx Section SAB No 04/28/25 20:20 Active Medications Active Medications: Current Medications Generic Name Dose Route Start Last Admin Trade Name Freq PRN Reason Stop Dose Admin Acetaminophen 1,000 mg 04/28/25 16:00 04/29/25 05:24 Acetaminophen 500 Mg Tablet PO Not Given Q8 [facility] Amlodipine Besylate 10 mg 04/29/25 10:00 04/29/25 09:05 Amlodipine 10 Mg Tablet PO 10 mg DAILY [facility] Administration Protocol Aspirin 81 mg 04/29/25 08:00 04/29/25 09:23 Aspirin 81 Mg Tab.Chew PO Not Given BREAKFAST [facility] Atorvastatin Calcium 80 mg 04/28/25 22:00 04/28/25 22:07 Atorvastatin Calcium 80 Mg Tablet PO 80 mg QHS ARNOLDO Administration Ezetimibe 10 mg 04/29/25 10:00 04/29/25 11:20 Ezetimibe 10 Mg Tablet PO Not Given DAILY ARNOLDO Glucagon 1 mg 04/28/25 14:34 Glucagon 1 Mg/Ml Syringe IM X1 PRN Hypoglycemia Protocol Heparin Sodium (Porcine) 5,000 unit 04/28/25 16:00 04/29/25 05:24 Heparin Injection (Vial) 5,000 Unit/Ml Vial SC Not Given Q8 ARNOLDO Hydralazine HCl 25 mg 04/28/25 22:00 04/29/25 05:24 Hydralazine 25 Mg Tablet PO Not Given TID ARNOLDO Dextrose 250 mls @ 0 mls/hr 04/28/25 14:34 Dextrose 10%-Water IV .Q0M PRN HYPOGLYCEMIA Protocol As Directed Sodium Chloride 250 mls @ 15 mls/hr 04/28/25 14:35 IV .[id number] PRN Saline Flush Sodium Chloride 250 mls @ 15 mls/hr 04/28/25 14:35 IV .[id number] PRN Additional IVPB Infusion Lactated Ringer's 1,000 mls @ 15 mls/hr 04/29/25 12:30 04/29/25 12:43 IV 15 mls/hr .Q48H ARNOLDO Administration Insulin Glargine 10 unit 04/29/25 10:00 04/29/25 11:34 Insulin Glargine-Yfgn 100 Unit/Ml Pen SC Not Given DAILY [facility] Insulin Human Lispro 0 unit 04/28/25 16:00 04/29/25 11:34 Insulin Lispro 100 Unit/Ml Insuln.Pen SC Not Given ACHS [facility] Protocol Oxycodone HCl 2.5 - 5 mg 04/28/25 14:34 04/29/25 09:05 Oxycodone 5 Mg Tablet PO 5 mg Q4H PRN PRN Administration Pain Score 4-10 Prochlorperazine Edisylate 5 mg 04/28/25 14:34 Prochlorperazine 10 Mg/2 Ml Vial IV Q4H PRN PRN Breakthrough nausea/vomiting Senna/Docusate Sodium 2 tablet 04/28/25 22:00 04/29/25 11:20 Senna/Docusate Sodium 1 Tablet PO Not Given BID ARNOLDO Sodium Chloride 10 - 40 ml 04/28/25 14:35 04/28/25 15:21 0.9% Saline Lock 10 Ml Syringe IV 10 ml UD PRN Administration SALINE FLUSH PFSH Medical History HLD (hyperlipidemia) Hypertension Stage 3b chronic kidney disease Coronary artery disease Benign prostatic hyperplasia Diabetes mellitus, type 2 Pacemaker Home Medications ?Medication ?Instructions ?Recorded ?Last Taken ?Type hydralazine 100 mg tablet 25 mg PO TID BP 12/16/16 08/28/22 07:00 History lisinopril 40 mg tablet 40 mg PO DAILY BP 06/13/20 08/28/22 07:00 History aspirin 81 mg tablet 81 mg PO DAILY Heart 04/23/21 08/28/22 07:00 History glimepiride 1 mg tablet 2 mg PO BID Diabetes 04/23/21 08/28/22 07:00 History atorvastatin 80 mg tablet 80 mg PO QHS HYPERLIPIDEMIA 08/28/22 08/27/22 18:00 History acetaminophen 500 mg tablet 1,000 mg (2 x 500 mg) PO Q8 pain 09/08/22 Unknown Rx #0 tabs amlodipine 10 mg tablet 10 mg PO DAILY blood pressure 30 09/08/22 Unknown Rx days #30 tabs chlorthalidone 25 mg tablet 25 mg PO DAILY htn 12/17/24 Unknown History ezetimibe 10 mg tablet 10 mg PO DAILY cholesterol 12/17/24 Unknown History insulin glargine 100 unit/mL (3 10 unit subcut DAILY diabetes 12/17/24 Unknown History mL) subcutaneous pen (Lantus Solostar U-100 Insulin) ondansetron 4 mg disintegrating 4 mg PO Q6H PRN PRN Nausea #15 tabs 12/17/24 Unknown Rx tablet Allergy/AdvReac Type Severity Reaction Status Date / Time No Known Allergies Allergy Verified 04/28/25 10:06 Family History Mother Colon cancer Diagnosed age 83, passed age 84. Father Heart disease Hypertension Myocardial infarction CAD (coronary artery disease) Surgical History History of left hip hemiarthroplasty S/P TURP Status post placement of cardiac pacemaker H/O cardiac catheterization History of coronary artery stent placement Social History household members: family Smoking Status: Never smoker alcohol intake: never substance use type: does not use Review of Systems (Anesthesia) ROS Narrative System reviewed and no additional complaints, except as documented.
--- NOTE | 2025-04-29 13:30 | HIP_PTH ---
PATIENT: BRIAN OTERO LOC: [id number] U#:[id number] AGE/SX: 85/M ROOM: [id number] RE04/28/[address]: Dr. Yoni Ray DO : 1940 BED: 1 DIS: 04/30/2025 SPEC #: [id number] RECD: 04/30/25 09:06 STATUS: TANVIR TREVIÑOVikki #: [id number] GUILLERMO: 04/29/25 13:[address]: Buster Leggett DEPT: SURGICAL PATHOLOGY RECD BY: Cheryl Vallejo ENTERED: 04/30/25 10:24 SP TYPE: TOTAL HIP OTHR DR: DO Dr. Yoni Davalos DO Dr. Prakash Chand, MD Tissues: A - Hip, NOS Procedures: Decalcification bone/plaque Surgery Specimen Level IV HEADER OPERATION: Hemiarthroplasty, hip, direct anterior PRE-OP DIAGNOSIS: Closed fracture of neck of right femur TISSUE SUBMITTED: A. Right hip bone and tissue MICROSCOPIC DIAGNOSIS A. Right hip, bone and tissue, closed fracture of neck of right femur, hemiarthroplasty: - Articular bone with reactive/degenerative changes. - Fatty marrow spaces with focal trilineage hematopoiesis and acute hemorrhage. MICROSCOPIC DESCRIPTION Slides are reviewed. GROSS DESCRIPTION A. Received in formalin labeled with the patient's name and date of . Designated as right hip bone and tissue is a 5.0 x 4.8 x 4.2 cm femoral head. There is up to 1.9 cm of attached femoral neck in addition to femoral neck fragments within the container; the resection margin is somewhat irregular and hemorrhagic. The articular cartilage is aquino and somewhat granular, devoid of identifiable eburnation; there is a 1.0 x 0.9 cm circular defect along the periphery that appears iatrogenic in nature. Sectioning reveals a aquino-yellow trabeculated medullary bone which is congested near the previously described resection margin. Road [employer] sections are submitted in 2 cassettes, following decalcification. [place] 04/30/2025 CPT: 88019,06336
--- NOTE | 2025-04-29 15:56 | CASEMGMT ---
NA MOSS Assessment: Face to Face with pt for initial transition planning/care coordination assessment. NA MOSS introduced self and role at [facility], pt voices understanding and consents to assessment. Pt is A&O x4 and answers all questions appropriately at this time. Daughter in room, pt agreeable to assessment with daughter present. Care providers, pharmacy, and demographics verified/updated. Strata: 3 Admitting Dx:Fall R hip fracture PCP: Vince Specialists: Arsalan Pin Chaser [facility]: yes LNOK: Son, Ulises; Daughter, Paz Living Arrangements: Pt lives with son and his fam ADLs: I at baseline with ADLs and IADLs. Transportation: Pt drives self and denies concerns with transportation. DME: елена Rivas HHC/SNF: TCU and [facility] Pt states no concerns with going home at time of dc. Pt states no further concerns/needs. CM to follow. Advised pt to ask CM if any further question/concerns/needs arise, voices understanding. Pt Goal: TBD Plan: TBD follow therapy Nnamdi MONZON CM
[2025-04-29] MEDS: Dextrose 5%-Water (1000mL Bag) 1,000 ML 80 ML IV (17:14)
--- NOTE | 2025-04-29 17:58 | PCM.PN.HOSP ---
Reason for Visit Reason for Visit: Diagnoses Difficulty in walking, not elsewhere classified (04/28/25) Other malaise (04/28/25) Fracture of unspecified part of neck of right femur, initial encounter for closed fracture (04/28/25) Subjective Subjective Patient was seen and examined today, his surgery was delayed today for repair of his fractured hip due to a blood sugar of 88. I ordered half an amp D50 equivalent using D10 for the patient. Objective Data Objective Data Vital Signs: Vital Signs Temp Pulse Resp BP Pulse Ox O2 Del Method 99.0 F 70 18 166/70 H 97 Room Air 04/29/25 15:31 04/29/25 15:34 04/29/25 15:31 04/29/25 15:31 04/29/25 15:31 04/29/25 15:31 Oxygen Delivery Method Room Air Weight: 85.3 kg Body Mass Index (BMI) 25.4 Intake & Output: Intake and Output for Last 24 Hours 04/27/25 04/28/25 04/29/25 23:59 23:59 23:59 Intake Total 1084.5 / 1084.5 Output Total 380 / 380 Balance 704.5 / 704.5 Lab / Micro Data 04/29/25 04:00 04/29/25 04:00 Labs: Laboratory Results - last 24 hr 04/28/25 22:16: POC Glucose 235 H 04/29/25 04:00: WBC 12.3 H, RBC 3.89 L, Hgb 12.1 L, Hct 37.0 L, MCV 95.1 H, MCH 31.1, MCHC 32.7, RDW Std Deviation 44.7 H, RDW Coeff of Facundo 12.8, Plt Count 282, MPV 9.9, Immature Gran % (Auto) 0.300, Neut % (Auto) 72.4 H, Lymph % (Auto) 14.4 L, [place]on % (Auto) 9.0, Eos % (Auto) 2.8, Baso % (Auto) 1.1 H, Absolute Neuts (auto) 8.9 H, Absolute Lymphs (auto) 1.78, Nucleated RBC % 0, APTT 30.4, Sodium 139, Potassium 3.8, Chloride 106, Carbon Dioxide 24.4, Anion Gap 9, BUN 37 H, Creatinine 1.70 H, Estim Creat Clear Calc 35.28 L, Est GFR (MDRD) Non-Af 39 L, BUN/Creatinine Ratio 21.7 H, Glucose 174 H, Calcium 8.3, TSH 1.170 04/29/25 06:40: POC Glucose 131 H 04/29/25 11:28: POC Glucose 106 04/29/25 15:43: POC Glucose 88 Physical Exam Const alert, no apparent distress, average body habitus and healthy appearing General Appearance: cooperative, well kempt and well developed Orientation / Consciousness: awake, oriented to person and oriented to place HEENT normocephalic, head/scalp atraumatic and moist oral mucous membranes Eyes PERRL, EOMs intact bilaterally and conjunctivae normal Neck supple, no JVD, thyroid normal and no carotid bruits General: trachea midline Resp normal respiratory effort, no retractions, no use of accessory muscles and clear to auscultation bilaterally Auscultation: Negative for rales, rhonchi or wheezes Cardio regular rate, regular rhythm, S1 normal heart sound, S2 normal heart sound, no murmurs, no rub and no gallops GI normal to inspection, nondistended, normoactive bowel sounds, soft to palpation, non-tender and non-distended Extremity no clubbing, cyanosis or edema Skin no rashes or lesions noted General Skin Exam: no breakdown Neuro CN's II-XII intact bilaterally, moves all extremities, no focal motor deficits and no sensory deficits noted Sensorium / Orientation: awake, alert, oriented to person and oriented to place Speech: speech normal Psych affect normal Assessment & Plan Assessment/Plan (1) Closed fracture of neck of right femur: PLAN: Plan 1. Right femoral neck fracture secondary to osteoporosis-patient is scheduled for surgery today for repair of the fracture, will be seen by PT and OT, he may have to go to a skilled facility for short-term skilled services. It will depend on how the patient does after surgery #2 essential hypertension-patient will remain on his present medications #3 type 2 diabetes-patient is on sliding scale insulin per fingerstick blood sugars, again patient was given extra IV glucose today due to a blood sugar under 100 #4 hyperlipidemia-patient is on Zetia Total clinical time spent by myself addressing the patient's medical issues, reviewing all of his data, and collaborating with the patient's care team: 35 minutes Charges/Coding Visit Charges Inpatient E&M: 68387 Subs Hosp L2
[2025-04-29] MEDS: Cefazolin 2 GM in 0.9% Normal Saline (100mL Bag) 100 ML IV (20:20)
[2025-04-29] MEDS: TXA 2000mg in NS 100ml (Placed in Wound) OPERA.SITE (21:14)
[2025-04-29] MEDS: JPS (Morphine 10mg/ml) OPERA.SITE (21:29)
--- NOTE | 2025-04-29 21:32 | OP.PCM_ITS ---
Operative Report (Standard) Operative Information Date of Procedure: 04/29/25 Pre-Operative Diagnosis: Right hip displaced transcervical femoral neck fracture Post-Operative Diagnosis: Right hip displaced transcervical femoral neck fracture Surgery/Procedure Performed: Right direct anterior hemiarthroplasty electro mechanic: Yes Gas Welder Apprentice: Michelle Hein Tasks completed by surgical first assistant: Other (See body of operative report) Additional personal assistant?: No Type of Anesthesia: General RN Documented Start/Stop Times: Operation Date: 04/29/25 13:30 Case Time Into Pre-Op 04/29/25 12:27 Anesthesia Start 04/29/25 19:55 Into Room 04/29/25 19:55 Procedure Start 04/29/25 20:27 Procedure End 04/29/25 22:00 Anesthesia End 04/29/25 22:06 Into Recovery 04/29/25 22:06 Out of Room 04/29/25 22:06 Out of Recovery 04/29/25 22:49 Procedure Start Time: 20:27 Procedure Stop Time: 22:00 Select all DRAINS/GRAFTS/IMPLANTS that apply: Prosthetic device Prosthetic device details: See body of operative report Special Medications: 2 g Ancef, 2 g TXA lavage. Estimated Blood Loss: 200 mL Fluids Replaced: 500 mL crystalloid Specimen collected: Yes Description of specimen(s) removed: Femoral head and fracture Description of surgery: Components used: 1. Claudia insignia femoral stem size 6 high offset 2. Claudia Unitrax femoral head 52 mm cobalt chromium with neutral sleeve Procedure: On the date of procedure the patient's R hip was marked in the preoperative area. Patient was then taken back to the operating room where anesthesia assumed control of the C-spine and airway and administered anesthetic. Patient was transferred to the operating table and placed in the supine position. The hips were placed the break of the bed and a bump was placed in the sacrum. The R lower extremity was then prepped out in a sterile fashion using chlorhexidine while the surgeon scrubbed. Upon reentering the room the R lower extremity was draped in the standard orthopedic fashion and the incision was marked. A timeout was called and everyone agreed upon the side, the site, the procedure be performed, antibody given, and patient's identity. At this time incision was made through skin, subcutaneous tissue, and fat down to fascia. The fascia was then incised and the TFL was retracted laterally. A retractor was placed on the lateral border of the femoral neck. Attention was directed to the inferior portion of the approach and all crossing vessels were identified and appropriately coagulated. A retractor was then placed on the medial portion of the femoral neck. The anterior capsule was then cleared of all soft tissue and then H shaped capsulotomy was made. The retractors were then placed inside the capsule. The femoral neck was identified and a cleanup cut was made. At this time a power corkscrew was used to remove the femoral head. The femoral head was measures and a 52 mm unipolar component was selected. Soft tissue releases on the medial and lateral femoral neck were appropriately done, the leg was externally rotated and lateralized. A Montelongo retractor was placed medially and proximally to the greater trochanter this allowed appropriate visualization and exposure of the femoral canal. Rongeour was then used to remove excess lateral bone. A canal finder and entry broach were used to open the proximal canal. Once we verified we were down the femoral canal we subsequently broached up to a size 6 femur. The appropriate neck was placed in the previously selected head was trialed with a 0mm neck. Traction was pulled and the hip was reduced with internal rotation. Once it was appropriately reduced and stability was checked. There was minimal shuck, equal leg lengths and appropriate stability with hyperextension and external rotation as well as with 90? flexion and internal rotation. The trial components were then dislocated the proximal femur was again exposed and the components were removed from the wound. The final components were verified and opened. The wound was copiously irrigated out with normal saline. The acetabulum was checked for any residual debris. The final components were placed and impacted. Traction and internal rotation were again used to reduce the hip. After adequate reduction the hip remained stable with appropriate leg lengths. The wound was then copiously irrigated with normal saline once more, and hemostasis was obtained. Closure was then done using #1 Vicryl runner to close the fascia. A 2-0 Vicryl interrupteds were used to close the subcutaneous skin. A 3-0 barbed Monocryl and Steri-Strips were used for final skin closure. A Silverlon dressing was placed. Patient was awakened by anesthesia and transferred to the [facility]. Patient was then transferred to the PACU for recovery. Postoperative plan: Patient will get 24 hours postop antibiotics. Patient will get in-house physical therapy and will be weight-bear as tolerated. Patient will follow up in office in 2 weeks for a wound check and x-rays. Okay to continue with heparin injections tomorrow morning while patient is inpatient. Upon discharge would recommend 81 mg aspirin p.o. twice daily for total of 4 weeks. During the course of the procedure the physician paper mill supervisor (PE) played a vital role. Their intimate knowledge of my steps in the procedure aided in safe and expedient completion of the procedure. The PE played a vital rolls in positioning particularly in obtaining the appropriate positioning of the sacral bump. The PE was also vital in the retraction of soft tissues during the exposure and especially the femoral work as this is a vital part of the procedure to prevent complications and fractures. The PE was also vital and protecting soft tissues during times of bony cuts and reaming. He also played a vital role in closure with my direct supervision. The PE was also important during reduction and dislocation of the joint and trials intraoperatively. Surgical Findings: Complete fracture with hematoma in the joint. Stable hip. Equal leg lengths. Complications Complications: No Admit VTE Documentation VTE Present on Admission: No VTE Mechan Device Prophylaxis: SCD's and Thigh High MARLI Hose VTE Pharm Prophylaxis ordered?: Yes
--- NOTE | 2025-04-29 21:38 | RAD_ITS ---
PROCEDURE: HIP MIN 2 VIEWS (PORTABLE) 04/29/2025 REASON FOR EXAM: POST OP TECHNIQUE: HIP MIN 2 VIEWS (PORTABLE) COMPARISON: 04/28/2025 pelvis/hip radiographs FINDINGS: Postoperative changes of interval right hip hemiarthroplasty, with short intramedullary stem component. Hardware is intact. Pre-existing left hip cemented hemiarthroplasty hardware is intact without evidence for loosening or failure. Alignment is anatomic. Postoperative soft tissue swelling and subcutaneous air overlying the right hip. RAD/Hip Min 2 Views (Portable) IMPRESSION: Bilateral hip elyssa-arthroplasties with intact hardware, newly placed on the rig ht with postoperative right hip soft tissue swelling and subcutaneous emphysema. Reading Location: [id number]
--- NOTE | 2025-04-29 22:12 | PCM.POST.ANE ---
Anesthesia: Postop Eval I Current Vital Signs Temperature: 98.1 F Pulse Rate: 76 Blood Pressure: 144/61 Respiratory Rate: 16 Pulse Ox: 92 Oxygen Delivery Method: Room Air Assessment Airway patent: Yes Spontaneous unlabored respirations: Yes Mental status: Awake and Calm nausea: No Vomiting: No Anesthesia Complication: No Fluid Hydration Crystalloid volume administer (ml): 550 Total IV fluid infused: 550 Progress Note Anesthesia document: Postop Eval 1 completed: Yes
--- NOTE | 2025-04-29 22:13 | PCM.POSTANE2 ---
Anesthesia Postop Eval I Sum Postop Eval Completion status Anesthesia document: Postop Eval 1 completed: Yes Anesthesia Postop Eval I Summary Anesthesia Postop Eval I Summary: Anesthesia Postop Eval I: Assessment Summary Airway patent Yes 04/29/25 22:13 Spontaneous unlabored Yes 04/29/25 22:13 respirations Mental status Awake,Calm 04/29/25 22:13 nausea No 04/29/25 22:13 Vomiting No 04/29/25 22:13 Anesthesia Postop Eval I: Fluid Summary Crystalloid volume administer 550 04/29/25 22:13 (ml) Colloids volume administered ( ml) Blood Product volume administered (ml) Total IV fluid infused 550 04/29/25 22:13 Anesthesia Postop Eval I: Summary Notes Anesthesia Complication No 04/29/25 22:13 Anesthesia Complication Comment: Post-operative progress note Anesthesia: Postop Eval II Evaluation Mental status: Awake Pain Level: 2 nausea: No Vomiting: No
[2025-04-29] MEDS: Senna/Docusate Sodium 1 Tablet 2 TABLET PO (23:15)
[2025-04-29] MEDS: 0.9% Saline Lock 10 ML Syringe IV (23:16)
[2025-04-30] VITALS (8 sets, daily range): BP systolic 127–147; BP diastolic 52–66; PULSE 61–87; RESP 16–18; TEMP 36.7–36.9; O2SAT 93–96; BMI 25.4
[2025-04-30] MEDS: Cefazolin 1 GM/50 ML BAG IV ×2 (03:32→14:22)
[2025-04-30 05:26] LABS: Hematocrit 34.9 % (40-54); Hemoglobin 11.4 g/dL (13.0-16.5); Immature Granulocytes Count 0.040 X10^3/uL (0.0-0.0); Mean Corp Hgb Conc 32.7 g/dL (32-36); Mean Corpuscular Volume 94.1 fL (80-94); Mean Platelet Vol. 9.4 fl (6.2-12.0); NRBC Flagged by Analyzer 0 % (0-5); Platelet Count 239 K/mm3 (150-450); RBC Distribution Width CV 12.7 % (11.6-14.6); RBC Distribution Width SD 44.4 fl (35.1-43.9); Red Blood Count 3.71 M/mm3 (4.6-6.2); White Blood Count 11.1 K/mm3 (4.4-11.0)
[2025-04-30] MEDS: Heparin Injection (Vial) 5,000 UNIT/ML VIAL 5000 UNIT SC ×2 (06:10→14:22)
[2025-04-30 06:14] LABS: Anion Gap 10 (5-15); BUN 31 mg/dL (4-19); BUN/Creat Ratio 18.1 RATIO (10-20); Calcium,Total 8.1 mg/dL (7.6-11.0); Carbon Dioxide 23.3 mmol/L (21.0-32.0); Chloride 104 mmol/L (98-108); Estimated Creatinine Clearance 35.09 ml/min (50-250); Glucose 122 mg/dL (70-99); Potassium 3.9 mmol/L (3.3-5.1)
[2025-04-30] MEDS: Senna/Docusate Sodium 1 Tablet 2 TABLET PO (08:45)
--- NOTE | 2025-04-30 09:31 | PN.ORTHO_ITS ---
Subjective Subjective Patient is lying comfortably in bed. Patient states that he is doing really good this morning. Patient states he has been up and been to the bathroom. Patient has not worked with physical therapy yet due to leg surgery time. Patient states that his pain is adequately controlled. Patient denies any nausea, vomiting, dizziness. Patient denies any shortness of breath, chest pain, calf pain. Patient denies any fevers, chills, signs of infection. Patient denies any adverse events overnight. Objective Data Objective Data Vital Signs: Vital Signs Temp Pulse Resp BP Pulse Ox O2 Del Method O2 Flow Rate 98.5 F 66 16 131/61 H 93 Room Air 2 04/30/25 08:39 04/30/25 08:39 04/30/25 08:39 04/30/25 08:39 04/30/25 08:39 04/30/25 08:39 04/30/25 00:54 Oxygen Flow Rate (L/min) 2 Oxygen Delivery Method Room Air Weight: 85.3 kg Body Mass Index (BMI) 25.4 Intake & Output: Intake and Output for Last 24 Hours 04/28/25 04/29/25 04/30/25 23:59 23:59 23:59 Intake Total 1430.83 / 1430.83 50 / 50 Output Total 1280 / 1280 400 / 400 Balance 150.83 / 150.83 -350 / -350 Lab / Micro Data 04/30/25 05:13 04/30/25 05:13 Labs: Laboratory Results - last 24 hr 04/29/25 11:28: POC Glucose 106 04/29/25 15:43: POC Glucose 88 04/29/25 19:40: POC Glucose 109 H 04/29/25 23:04: POC Glucose 180 H 04/30/25 05:13: WBC 11.1 H, RBC 3.71 L, Hgb 11.4 L, Hct 34.9 L, MCV 94.1 H, MCH 30.7, MCHC 32.7, RDW Std Deviation 44.4 H, RDW Coeff of Facundo 12.7, Plt Count 239, MPV 9.4, Immature Gran % (Auto) 0.400, Neut % (Auto) 72.2 H, Lymph % (Auto) 12.9 L, Taylor % (Auto) 11.8 H, Eos % (Auto) 2.2, Baso % (Auto) 0.5, Absolute Neuts (auto) 8.0 H, Absolute Lymphs (auto) 1.44, Nucleated RBC % 0, Sodium 137, Potassium 3.9, Chloride 104, Carbon Dioxide 23.3, Anion Gap 10, BUN 31 H, C reatinine 1.72 H, Estim Creat Clear Calc 35.09 L, Est GFR (MDRD) Non-Af 39 L, BUN/Creatinine Ratio 18.1, Glucose 122 H, Calcium 8.1 04/30/25 06:09: POC Glucose 125 H Radiography Diagnostic Testing: Radiology Impression Hip X-Ray 04/29/25 07:09 IMPRESSION: Intraoperative fluoroscopy status post right hip hemiarthroplasty. Reading Location: [facility] Hip X-Ray 04/29/25 21:38 IMPRESSION: Bilateral hip elyssa-arthroplasties with intact hardware, newly placed on the right with postoperative right hip soft tissue swelling and subcutaneous emphysema. Reading Location: [facility] Physical Exam Narrative Vital signs stable and afebrile. MARLI hose in place bilaterally. SCDs in place bilaterally. Dressing is clean, dry, intact. Dorsiflexion and plantarflexion are performed without pain or restriction. Sensation intact light touch. Neurovascularly intact overall. Negative Homans bilaterally. Const alert, oriented x3 and no apparent distress Assessment & Plan Assessment/Plan (1) Closed fracture of neck of right femur: PLAN: Status post right direct anterior hemiarthroplasty day 1. 1. DVT prophylaxis: Patient is currently on heparin and Dr. Leggett suggested that patient continue heparin as an inpatient and then recommended that patient moved to aspirin 81 mg twice daily as an outpatient. Patient will be wearing MARLI hose for 2 weeks postoperatively. 2. Pain medications: Patient's pain regimen will continue to be managed by primary care team. Patient states that his pain is currently well-controlled. OARRS report was reviewed today. The risk of abuse potential for narcotic pain medication was discussed and reviewed with patient. 3. Constipation: Patient will be on senna as instructed until first bowel movement to decrease risk of impaction following surgery. Patient was instructed if they have not had a bowel movement in 3 days to contact her office for reevaluation. 4. Physical therapy: Patient will be weightbearing as tolerated with walker. Patient will begin physical therapy today and have outpatient physical therapy established. 5. Reactive leukocytosis: White blood cell count is currently 11.1. Vital signs are stable and patient is afebrile at this time. 6. H&H: 11.4/34.9. Vital signs are currently stable and patient is afebrile. 7. Incentive spirometry: Patient was encouraged to use incentive spirometer every hour that she is awake for the first week to exercise lungs and decrease risk of postoperative infection. 8. Patient is to follow-up per postoperative instructions. 9. Medicine is currently primary care team for this patient. 10. Patient will need a follow-up appointment scheduled with our office for 2 weeks postoperatively. 11. Patient is okay for discharge from an orthopedic standpoint as long as pain maintains adequately controlled, continues to work with physical therapy and do well. 12. Disposition: Patient is doing well at this time. Patient is okay for discharge from an orthopedic standpoint. It was recommended that patient continue heparin as an inpatient but recommended by Dr. Leggett patient moved to aspirin 81 mg twice daily as an outpatient. Patient will be weightbearing as tolerated with a walker. Patient is to begin working with physical therapy today. Patient will need outpatient physical therapy established. Patient is currently on hospitalist services. Patient will need 2-week follow-up appointment with [facility]. Patient was encouraged to call with any questions, concerns, new problems.
--- NOTE | 2025-04-30 10:12 | CASEMGMT ---
Discharge Planning A list of SNF providers including quality and resource use data and consistent with the patient's preferred geographic region, medical needs, and insurance network was created in [employer].? This list was provided to the RN AJAY. Faith Pulido, Discharge Planning Asst.
--- NOTE | 2025-04-30 10:37 | CASEMGMT ---
Addendum entered by Nikki Du 04/30/25 16:16: Faxed signed med list, trf to extended care and narcotic rx to [facility] TCU admissions. Pt nurse aware she may call report. Addendum entered by Nikki Du 04/30/25 15:26: Received confirmation from admissions in TCU that precert was received. Updated hospitalist, pt to dc this date. NA MOSS into pt room, he is aware that he will move over to TCU today. He denies need for NA MOSS to contact any family as he states he will notify his dtr and she will text other family members. Addendum entered by Nikki Du 04/30/25 13:40: Pt accepted at [facility], precert submitted. NA MOSS into pt room to discuss a potential back up plan should he not get approved. Pt states he is in great pain and does not feel he can return home. Original Note: NA MOSS into pt room, pt sitting up in chair and has friend at bedside. Pt agreeable to discussion with friend present. Pt states he feels he did well with therapy but he wants to do therapy here. Pt states he has been to [facility] TCU in the past and would like to again. Provided pt with a list of SNF facilities created by md urology physician assistant, pt states he does not need that, he knows he wants TCU. Therapy notes not entered yet. Message to admissions with referral and made aware therapy notes are pending.
--- NOTE | 2025-04-30 15:31 | PCM.TXEXTCAR ---
Diet Diet Order/Speech Therapy: INPATIENT Hospital Diet / Speech Therapy Order(s) 04/30/25 00:57 Diet: Consistent Carb - Calorie Controlled Dietary Modifications:: Cardiac / Heart Healthy How many daily calories?: 1800 calorie Routine Orders/Code Status Code Status: DNRCC-A (No intubation) DC O2, CPAP, BIPAP needs Home O2 Discharge instructions: No Wound(s) R knee: Wound Type: Abrasion right hip: Wound Type: Surgical Incision Therapies Weight Bearing: Weight bearing as tolerated (With walker) Physical Therapy: Eval and Treat Occupational Therapy: Eval and Treat Problem/Diagnosis (1) Closed fracture of neck of right femur: Status: Acute Code(s): S72.001A - Fracture of unspecified part of neck of right femur, initial encounter for closed fracture Plan 1. Right femoral neck fracture secondary to osteoporosis-postop day #1-patient has been accepted in the senior living facility and will be discharged today #2 essential hypertension-patient will remain on his present medications #3 type 2 diabetes-patient is on sliding scale insulin per fingerstick blood sugars, I will resume the patient's oral diabetic medication when he goes to TCU #4 hyperlipidemia-patient is on Zetia Total clinical time spent by myself addressing the patient's medical issues, reviewing all of his data, and collaborating with the patient's care team: 35 minutes Allergies/Procedures Done in Hospital Allergies No Known Allergies Allergy (Verified 04/28/25 10:06) Procedures: - (Right direct anterior hemiarthroplasty) Type of Care/Length of Stay Estimated LOS: Convalescent Care Less Than 30 days Type of Care Needed: Skilled Rehab Potential: Good Prognosis: Good Additional Orders/Day of Discharge H&P will serve as current which was dated: 04/28/25 Day of Discharge: 04/30/25 Discharge Plan Admission Admit Date/Time: 04/28/25 12:32 Primary Reason for Your Visit: Right femoral neck fracture-displaced Attending Provider: Yoni Ray Primary Care Provider: Jose Clarke Consulting Providers: Buster Leggett; Juventino Patel Instructions Additional Instructions / Restrictions: Wear MARLI hose for 2 weeks postoperatively, patient may shower Discharge Orders/Prescriptions Prescriptions: New aspirin 81 mg Tablet,Chewable 81 mg PO BIDCM Qty: 1 0RF oxycodone 5 mg Tablet 2.5 - 5 mg PO Q4H PRN PRN (Reason: Pain Score 4-10) 2 Days Qty: 8 0RF insulin lispro [Humalog KwikPen Insulin] 100 unit/mL Insulin Pen See Protocol subcut ACHS Qty: 1 0RF Protocol: 4. Sliding Scale Insulin High-Med Dosing Condition: 150-199 mg/dl = 2 units Condition: 200-259 mg/dl = 4 units Condition: 260-324 mg/dl = 6 units Condition: 325-374 mg/dl = 8 units Condition: 375-409 mg/dl = 10 units Condition: 410-449 mg/dl = 11 units Condition: Greater than 449 call physician Protocol Text: Suggested for: - Patients on Total Daily Insulin Dose of 56-80 units - Patient who are known to be insulin resistant or septic HIGH MEDIUM DOSING ALGORITHM pantoprazole [Protonix] 40 mg tablet,delayed release (DR/EC) 40 mg PO DAILY Qty: 30 0RF Rx Instructions: Keep patient on this medication while he is on 81 mg aspirin twice a day for DVT prophylaxis-typically x 1 month calcium carbonate-vitamin D3 [Calcium 500 + D] 500 mg-10 mcg (400 unit) tablet 1 tab PO BID Qty: 1 0RF Continued hydralazine 100 MG tablet 25 mg PO TID lisinopril 40 MG tablet 40 mg PO DAILY glimepiride 1 mg tablet 2 mg PO BID atorvastatin 80 mg tablet 80 mg PO QHS amlodipine 10 mg Tablet 10 mg PO DAILY 30 Days Qty: 30 0RF acetaminophen 500 mg Tablet 1,000 mg PO Q8 Qty: 0 0RF ezetimibe 10 mg tablet 10 mg PO DAILY chlorthalidone 25 mg tablet 25 mg PO DAILY insulin glargine [Lantus Solostar U-100 Insulin] 100 unit/mL (3 mL) insulin pen 10 unit SUBCUT DAILY Patient Comments: BEGIN 10 UNITS SUBCUTANEOUSLY EACH DAY AND INCREASE BY 1 UNIT EVERY OTHER DAY IF FASTING GLUCOSE LEVEL OVER 140. THEN MAINTAIN DOSE TO KEEP GLUCOSE AROUND 140 OR LOWER ondansetron 4 mg tablet,disintegrating 4 mg PO Q6H PRN PRN (Reason: Nausea) Qty: 15 0RF Discontinued aspirin 81 mg Tablet 81 mg PO DAILY Referrals / Follow Up: Jose Clarke DO [Primary Care Provider] - Buster Leggett MD [Med Staff - Active Staff] - (In 2 weeks) Disposition Disposition (needs filled in before D/C Order can be placed): [facility]
--- NOTE | 2025-04-30 15:57 | DS.PCM_ITS ---
Providers Date of Admission: 04/28/25 Date of Discharge: 04/30/25 Primary Care Physician: Dr. Jose Clarke, Consultations 04/28/25 13:45 Consult: Orthopedics Routine Consulting Provider: Buster Leggett Reason for Consult: right hip fracture? EMERGENT Consult: No MD Notified: Yes Date Notified: 04/28/25 Time Notified: 13:45 Method of Notification: ED Physician Initiated Reason For Visit: FALL RIGHT HIP FRACTURE Diagnosis Discharge Diagnosis (1) Closed fracture of neck of right femur: Status: Acute Code(s): S72.001A - Fracture of unspecified part of neck of right femur, initial encounter for closed fracture Plan 1. Right femoral neck fracture secondary to osteoporosis-postop day #1-[facility] and will be discharged today #2 essential hypertension-patient will remain on his present medications #3 type 2 diabetes-patient is on sliding scale insulin per fingerstick blood sugars, I will resume the patient's oral diabetic medication when he goes to TCU #4 hyperlipidemia-patient is on Zetia Total clinical time spent by myself addressing the patient's medical issues, reviewing all of his data, and collaborating with the patient's care team: 35 minutes Medications at Discharge Home Medications hydralazine 100 mg tablet 25 mg PO TID BP 12/16/16 lisinopril 40 mg tablet 40 mg PO DAILY BP 06/13/20 glimepiride 1 mg tablet 2 mg PO BID Diabetes 04/23/21 atorvastatin 80 mg tablet 80 mg PO QHS HYPERLIPIDEMIA 08/28/22 acetaminophen 500 mg tablet 1,000 mg (2 x 500 mg) PO Q8 pain #0 tabs 09/08/22 amlodipine 10 mg tablet 10 mg PO DAILY blood pressure 30 days #30 tabs 09/08/22 chlorthalidone 25 mg tablet 25 mg PO DAILY htn 12/17/24 ezetimibe 10 mg tablet 10 mg PO DAILY cholesterol 12/17/24 insulin glargine 100 unit/mL (3 mL) subcutaneous pen (Lantus Solostar U-100 Insulin) 10 unit subcut DAILY diabetes 12/17/24 ondansetron 4 mg disintegrating tablet 4 mg PO Q6H PRN PRN Nausea #15 tabs 12/17/24 aspirin 81 mg chewable tablet 81 mg PO BIDCM heart #1 TAB 04/30/25 calcium 500 mg (as carbonate)-vitamin D3 10 mcg (400 unit) tablet (Calcium 500 + D) 1 tab PO BID supplement #1 TAB 04/30/25 hydralazine 25 mg tablet 25 mg PO TID blood pressure 04/30/25 insulin lispro 100 unit/mL subcutaneous pen (Humalog KwikPen (U-100) Insulin) See Protocol subcut ACHS diabetes #1 mL 04/30/25 oxycodone 5 mg tablet 2.5 - 5 mg (0.5 - 1 x 5 mg) PO Q4H PRN PRN Pain Score 4-10 2 days #8 tabs 04/30/25 pantoprazole 40 mg tablet,delayed release (Protonix) 40 mg PO DAILY stomach #30 tabs 04/30/25 Hospital Course Operations - (Right direct anterior hemiarthroplasty-04/29/2025) Procedures None Summary of Care Provided Minutes Spent on Discharge: 31 Hospital Course: This 85-year-old white male came to the emergency room at [facility] after he sustained a fall at home while doing gardening and caring objects. He was then not able to stand up or ambulate, he complained of right hip pain. Workup in the emergency room included x-rays of the right hip which were reported as being normal, patient was unable to do ADLs however and was admitted to [place] [address]. Patient was seen by orthopedic surgery who felt that the patient had a right femoral neck fracture and needed surgery for repair. On 04/29/2025, patient underwent a right hip anterior arthroplasty, there were no complications and the patient was seen by PT and OT and felt to be a good candidate for admission to a [facility] for short-term rehab services. On 04/30/2025, patient was seen and examined: On examination he appeared in good health and spirits. Vital signs as documented. Skin warm and dry and without overt rashes. Neck without JVD, neck was supple, trachea midline, thyroid was normal. Lungs clear bilaterally, normal air movement was noted. Heart exam notable for regular rhythm, normal sounds and absence of murmurs, rubs or gallops. Abdomen unremarkable and without evidence of organomegaly, masses, or abdominal aortic enlargement. Bowel sounds are present, abdomen is not distended. Extremities nonedematous, no cyanosis was noted, no clubbing was noted. Neuro: Cranial nerves II through XII are grossly intact, no focal motor deficits were noted, sensation to light touch and pinprick intact, motor exam 5/5 throughout. Psych: Patient is alert and oriented x3, he does not appear anxious or depressed, he does not appear agitated. Patient appears to be stable for discharge to a [facility] facility for short-term rehab services on 04/30/2025. Weight / BMI Weight Weight: 85.3 kg Body Mass Index (BMI) 25.4 ABG / Lab / Microbiology Data 04/30/25 05:13 04/30/25 05:13 Laboratory: Laboratory Results - last 24 hr 04/29/25 15:43: POC Glucose 88 04/29/25 19:40: POC Glucose 109 H 04/29/25 23:04: POC Glucose 180 H 04/30/25 05:13: WBC 11.1 H, RBC 3.71 L, Hgb 11.4 L, Hct 34.9 L, MCV 94.1 H, MCH 30.7, MCHC 32.7, RDW Std Deviation 44.4 H, RDW Coeff of Facundo 12.7, Plt Count 239, MPV 9.4, Immature Gran % (Auto) 0.400, Neut % (Auto) 72.2 H, Lymph % (Auto) 12.9 L, [place] % (Auto) 11.8 H, Eos % (Auto) 2.2, Baso % (Auto) 0.5, Absolute Neuts (auto) 8.0 H, Absolute Lymphs (auto) 1.44, Nucleated RBC % 0, Sodium 137, Potassium 3.9, Chloride 104, Carbon Dioxide 23.3, Anion Gap 10, BUN 31 H, C reatinine 1.72 H, Estim Creat Clear Calc 35.09 L, Est GFR (MDRD) Non-Af 39 L, BUN/Creatinine Ratio 18.1, Glucose 122 H, Calcium 8.1 04/30/25 06:09: POC Glucose 125 H 04/30/25 11:51: POC Glucose 184 H Radiography Diagnostic Testing: Radiology Impression Hip X-Ray 04/29/25 07:09 IMPRESSION: Intraoperative fluoroscopy status post right hip hemiarthroplasty. Reading Location: [facility] Hip X-Ray 04/29/25 21:38 IMPRESSION: Bilateral hip elyssa-arthroplasties with intact hardware, newly placed on the right with postoperative right hip soft tissue swelling and subcutaneous emphysema. Reading Location: [facility] D/C Instructions DC O2, CPAP, BIPAP Needs Home O2 Discharge instructions: No Meaningful Use Info Meaningful Use Meaningful Use Diagnoses (Choose all that apply): None applicable Ischemic Stroke Statin Dosing Therapy Reference: STATIN DOSE THERAPY REFERENCE: * Patients > 75 years receive moderate or high dose statin therapy. * Patients 75 years or YOUNGER should receive HIGH intensity statin dose unless contraindicated. You will be required to document reason for non-treatment if statin daily dose does not meet guidelines. HIGH DOSE STATIN THERAPY DAILY Atorvastatin > than or = to 40 mg Rosuvastatin > than or = to 20 mg Amlodipine + Atorvastatin > than or = to 2.5/40 mg Ezetimibe + Simvastatin 10/80 mg Simvastatin 80mg Discharge Plan Admission Admit Date/Time: 04/28/25 12:32 Primary Reason for Your Visit: Right femoral neck fracture-displaced Attending Provider: Yoni Ray Primary Care Provider: Jose Clarke Consulting Providers: Buster Leggett; Juventino Patel Instructions Additional Instructions / Restrictions: Wear MARLI hose for 2 weeks postoperatively, patient may shower Discharge Orders/Prescriptions Prescriptions: New aspirin 81 mg Tablet,Chewable 81 mg PO BIDCM Qty: 1 0RF oxycodone 5 mg Tablet 2.5 - 5 mg PO Q4H PRN PRN (Reason: Pain Score 4-10) 2 Days Qty: 8 0RF insulin lispro [Humalog KwikPen Insulin] 100 unit/mL Insulin Pen See Protocol subcut ACHS Qty: 1 0RF Protocol: 4. Sliding Scale Insulin High-Med Dosing Condition: 150-199 mg/dl = 2 units Condition: 200-259 mg/dl = 4 units Condition: 260-324 mg/dl = 6 units Condition: 325-374 mg/dl = 8 units Condition: 375-409 mg/dl = 10 units Condition: 410-449 mg/dl = 11 units Condition: Greater than 449 call physician Protocol Text: Suggested for: - Patients on Total Daily Insulin Dose of 56-80 units - Patient who are known to be insulin resistant or septic HIGH MEDIUM DOSING ALGORITHM pantoprazole [Protonix] 40 mg tablet,delayed release (DR/EC) 40 mg PO DAILY Qty: 30 0RF Rx Instructions: Keep patient on this medication while he is on 81 mg aspirin twice a day for DVT prophylaxis-typically x 1 month calcium carbonate-vitamin D3 [Calcium 500 + D] 500 mg-10 mcg (400 unit) tablet 1 tab PO BID Qty: 1 0RF Continued hydralazine 100 MG tablet 25 mg PO TID lisinopril 40 MG tablet 40 mg PO DAILY glimepiride 1 mg tablet 2 mg PO BID atorvastatin 80 mg tablet 80 mg PO QHS amlodipine 10 mg Tablet 10 mg PO DAILY 30 Days Qty: 30 0RF acetaminophen 500 mg Tablet 1,000 mg PO Q8 Qty: 0 0RF ezetimibe 10 mg tablet 10 mg PO DAILY chlorthalidone 25 mg tablet 25 mg PO DAILY insulin glargine [Lantus Solostar U-100 Insulin] 100 unit/mL (3 mL) insulin pen 10 unit SUBCUT DAILY Patient Comments: BEGIN 10 UNITS SUBCUTANEOUSLY EACH DAY AND INCREASE BY 1 UNIT EVERY OTHER DAY IF FASTING GLUCOSE LEVEL OVER 140. THEN MAINTAIN DOSE TO KEEP GLUCOSE AROUND 140 OR LOWER ondansetron 4 mg tablet,disintegrating 4 mg PO Q6H PRN PRN (Reason: Nausea) Qty: 15 0RF Discontinued aspirin 81 mg Tablet 81 mg PO DAILY No Action hydralazine 25 mg tablet 25 mg PO TID Referrals / Follow Up: Jose Clarke DO [Primary Care Provider] - Buster Leggett MD [Med Staff - Active Staff] - (In 2 weeks) Disposition Disposition (needs filled in before D/C Order can be placed): Intermediate Facility Charges/Coding Visit Charges Inpatient E&M: 84902 Disch Hosp >30min
== END 2025-04-30 16:35 | disposition skilled nursing facility (03) | DRG 522 ==
LOC: ED 12:09 → MS3 14:08
PROVIDERS: Anesthesiology; Specialist; Admitting Provider Internal Medicine; Emergency Provider Emergency Medicine; PCP Family Medicine; Visit Provider Internal Medicine
PROC: 0SRR0JA Replacement of Right Hip Joint, Femoral Surface with Synthetic Substitute, Uncemented, Open Approach (ICD-10-PCS; CPT 27125; principal; 2025-04-29 13:10)
DX: M80.051A Age-related osteoporosis with current pathological fracture, right femur, initial encounter for fracture (principal); E11.22 Type 2 diabetes mellitus with diabetic chronic kidney disease; Z66 Do not resuscitate; N18.32 Chronic kidney disease, stage 3b; I12.9 Hypertensive chronic kidney disease with stage 1 through stage 4 chronic kidney disease, or unspecified chronic kidney disease; I25.10 Atherosclerotic heart disease of native coronary artery without angina pectoris; E78.5 Hyperlipidemia, unspecified; Z79.4 Long term (current) use of insulin; W01.0XXA Fall on same level from slipping, tripping and stumbling without subsequent striking against object, initial encounter; E11.649 Type 2 diabetes mellitus with hypoglycemia without coma; Z95.0 Presence of cardiac pacemaker; Z95.5 Presence of coronary angioplasty implant and graft; Z79.01 Long term (current) use of anticoagulants; Z79.84 Long term (current) use of oral hypoglycemic drugs; Z79.85 Long-term (current) use of injectable non-insulin antidiabetic drugs; Z79.899 Other long term (current) drug therapy; Z86.73 Personal history of transient ischemic attack (TIA), and cerebral infarction without residual deficits
CPT/HCPCS: 36415; 71045; 73502; 76000; 80048; 81001; 82962; 83036; 83735; 84443; 85025; 85730; 86850; 86900; 86901; 88305; 88311; 93005; 94668; 97162; 97166; 99285; C1776; A4216; J2405

== ENCOUNTER 2025-04-30 16:45 | Inpatient (IN) | payer MEDICARE, SELFPAY ==
[2025-04-30 17:01] VITALS: BMI 24.2
[2025-04-30 17:02] VITALS: BP 157/62; PULSE 82; RESP 17; TEMP 37.1; O2SAT 91
--- NOTE | 2025-04-30 21:04 | CPS ---
pt had pep/smi on ms3 douglas well with volume of 1000-does on own
--- NOTE | 2025-04-30 21:22 | HP.PCM_ITS ---
HPI - General General Date of Admission: 04/30/25 Date of Service: 04/30/25 Chief Complaint: Here for rehabilitation. HPI Narrative BRIAN OTERO, is a 85 Male who presents with followin04/28/2025 [facility] ED fall. Tripped on crack in sidewalk, fell, right groin pain. X-ray right hip fracture. 04/28/2025 Admit [facility]. CT right hip, Dr. Leggett, PT/OT for right hip fracture. Prepare for surgery. 04/29/2025 Dr. Leggett performed right direct anterior hemiarthroplasty. 04/30/2025 Doing well, pain with therapy. Aspirin 81mg twice daily DVT prophylaxis. Bowel regimen for constipation. PT/OT SNF. 04/30/2025 Admit to TCU with debility, here for rehabilitation, strengthening, prior to discharge home with family. [facility] Medical History HLD (hyperlipidemia) Hypertension Stage 3b chronic kidney disease Coronary artery disease Benign prostatic hyperplasia Diabetes mellitus, type 2 Pacemaker Home Medications ?Medication ?Instructions ?Recorded ?Last Taken ?Type hydralazine 100 mg tablet 25 mg PO TID BP 12/16/1603/14 07:00 History lisinopril 40 mg tablet 40 mg PO DAILY BP 06/13/20 1 10/28/21 07:00 History glimepiride 1 mg tablet 2 mg PO BID Diabetes 1 08/28/22 07:00 History atorvastatin 80 mg tablet 80 mg PO QHS HYPERLIPIDEMIA 08/28/22 04/29/25 History acetaminophen 500 mg tablet 1,000 mg (2 x 500 mg) PO Q 8 pain 09/08/22 Unknown Rx #0 tabs amlodipine 10 mg tablet 10 mg PO DAILY blood pressur e 30 09/08/22 04/30/25 Rx days #30 tabs chlorthalidone 25 mg tablet 25 mg PO DAILY htn 5 Unknown History ezetimibe 10 mg tablet 10 mg PO DAILY cholesterol 0 12/17/24 04/30/25 History insulin glargine 100 unit/mL (3 10 unit subcut DAILY d iabetes 12/17/24 Unknown History mL) subcutaneous pen (Lantus Solostar U-100 Insulin) ondansetron 4 mg disintegrating 4 mg PO Q6H PRN PRN Na usea #15 tabs 12/17/24 Unknown Rx tablet aspirin 81 mg chewable tablet 81 mg PO BIDCM heart #1 TAB 04/30/25 04/30/25 Rx calcium 500 mg (as 1 tab PO BID supplement #1 T AB 04/30/25 Unknown Rx carbonate)-vitamin D3 10 mcg (400 unit) tablet (Calcium 500 + D) hydralazine 25 mg tablet 25 mg PO TID blood pressure 04/30/25 04/30/25 History insulin lispro 100 unit/mL See Protocol subcut ACHS di abetes 04/30/25 04/30/25 Rx subcutaneous pen (Humalog KwikPen #1 mL (U-100) Insulin) oxycodone 5 mg tablet 2.5 - 5 mg (0.5 - 1 x 5 mg) PO Q4H 04/30/25 04/30/25 Rx PRN PRN Pain Score 4-10 2 days #8 tabs pantoprazole 40 mg tablet,delayed 40 mg PO DAILY stoma ch #30 tabs 04/30/25 Unknown Rx release (Protonix) Allergy/AdvReac Type Severity Reaction Status Date / Time No Known Allergies Allergy Verified 04/28/25 10:06 Family History Mother Colon cancer Diagnosed age 83, passed age 84. Father Heart disease Hypertension Myocardial infarction CAD (coronary artery disease) Surgical History History of left hip hemiarthroplasty S/P TURP Status post placement of cardiac pacemaker H/O cardiac catheterization History of coronary artery stent placement Social History household members: family Smoking Status: Never smoker alcohol intake: never substance use type: does not use ROS Constitutional Constitutional: Reports weakness; Denies chills, fever(s) or weight gain ENT HEENT: Denies headache(s), nasal congestion or nasal discharge Cardiovascular Cardiovascular: Denies chest pain or palpitations Respiratory/Chest Respiratory/Chest: Denies cough, excessive phlegm production or shortness of breath with exertion Gastrointestinal Gastrointestinal: Denies abdominal pain, nausea or vomiting Genitourinary Genitourinary: Denies dysuria Musculoskeletal Musculoskeletal: Denies joint pain or joint swelling Integumentary Integumentary: Denies rash or wounds Neurologic Neurologic: Denies focal weakness, numbness or tingling Psychiatric Psychiatric: Denies anxiety, auditory hallucinations, depression, homicidal ideation or suicidal ideation Vital Signs Vital Signs Vital Signs: 04/30/25 17:00 04/30/25 17:02 04/30/25 18:50 Temperature 98.8 F Temperature Source Temporal Pulse Rate 82 Pulse Rhythm Regular Pulse Strength Normal (2+) Normal (2+) Respiratory Rate 17 Respiratory Effort Normal Non-Labored Respiratory Depth Normal Respiratory Pattern Normal Blood Pressure 157/62 H Blood Pressure Mean 93 Blood Pressure Source Monitor Blood Pressure Position Semi-Fowlers Blood Pressure Location Right Arm Pulse Ox 91 Oxygen Delivery Method Room Air Room Air Weight Weight: 83.28 kg Body Mass Index (BMI) 24.2 Physical Exam Const alert General Appearance: cooperative HEENT normocephalic Eyes PERRL and EOMs intact bilaterally Neck supple, no JVD and no carotid bruits Resp normal respiratory effort, normal air movement and clear to auscultation bilaterally Cardio regular rate and regular rhythm GI normal to inspection, nondistended, normoactive bowel sounds, non-tender and non-distended Extremity normal capillary refill General Extremity: Negative for edema Skin no rashes or lesions noted General Skin Exam: no breakdown Psych affect normal Appearance: appropriate Assessment & Plan Assessment/Plan (1) Debility: (2) Closed fracture of neck of right femur: (3) Essential (primary) hypertension: (4) Coronary artery disease: (5) Hyperlipidemia: (6) Type 2 diabetes mellitus with hyperglycemia: (7) Hypokalemia: (8) Chronic kidney disease, stage 3b: PLAN: Plan 85 year old male with below past medical history hospitalized for right hip fracture, underwent right direct anterior hemiarthroplasty 04/29/[address] Leggett, admitted to TCU with debility, here for rehabilitation, strengthening, prior to discharge home with family. * Debility - PT/OT. * Pain - Tylenol 1000mg q8, Oxycodone 2.5mg - 5mg q4 prn. * Bowel - Senna/colace 2 tablets bid, Dulcolax 10mg pr daily prn, Magnesium citrate 300mL daily prn. * Adult immunization - Administer pneumonia vaccine, covid vaccine, flu vaccine as appropriate. * DVT prophylaxis - Aspirin 81mg bid thru 05/30/2025. * Hypertension - Lisinopril 40mg daily, Chlorthalidone 25m gdaily, Amlodipine 10mg daily, Hydralazine 25mg tid. * Hyperlipidemia - Atorvastatin 80mg qhs, Zetia 10mg daily. * Calcium deficiency - Calcium D 1 tablet bid, * Diabetes Mellitus II - Glimepiride 2mg bid, Glargine 10 units daily. * Nausea - Zofran odt 4mg q6 prn,. * GERD - Pantoprazole 40mg daily thru 05/31/2025.
[2025-04-30 22:04] VITALS: BP 126/62; PULSE 89
[2025-04-30 22:05] VITALS: BP 126/62; PULSE 89
[2025-04-30] MEDS: Calcium Carb/Vitamin D 1 TABLET Tablet PO (22:06)
[2025-04-30] MEDS: Senna/Docusate Sodium 1 Tablet 2 TABLET PO (22:13)
[2025-05-01 05:25] VITALS: BP 128/62; PULSE 71
[2025-05-01 05:29] VITALS: BP 128/62; PULSE 71
[2025-05-01 05:48] LABS: Hematocrit 34.9 % (40-54); Hemoglobin 11.5 g/dL (13.0-16.5); Immature Granulocytes Count 0.060 X10^3/uL (0.0-0.0); Mean Corp Hgb Conc 33.0 g/dL (32-36); Mean Corpuscular Volume 93.6 fL (80-94); Mean Platelet Vol. 9.8 fl (6.2-12.0); NRBC Flagged by Analyzer 0 % (0-5); POSITIVE DIFFERENTIAL YES; Platelet Count 252 K/mm3 (150-450); RBC Distribution Width CV 12.8 % (11.6-14.6); RBC Distribution Width SD 44.6 fl (35.1-43.9); Red Blood Count 3.73 M/mm3 (4.6-6.2); White Blood Count 11.4 K/mm3 (4.4-11.0)
[2025-05-01 05:49] LABS: Differential Indicated SCAN CRITERIA MET
[2025-05-01 06:30] LABS: Differential Comment SCANNED
[2025-05-01 06:39] LABS: Anion Gap 12 (5-15); BUN 35 mg/dL (4-19); BUN/Creat Ratio 20.1 RATIO (10-20); Calcium,Total 8.4 mg/dL (7.6-11.0); Carbon Dioxide 23.1 mmol/L (21.0-32.0); Chloride 103 mmol/L (98-108); Estimated Creatinine Clearance 36.13 ml/min (50-250); Glucose 166 mg/dL (70-99); Potassium 3.6 mmol/L (3.3-5.1)
[2025-05-01] MEDS: Calcium Carb/Vitamin D 1 TABLET Tablet PO ×2 (09:44→22:15)
[2025-05-01] MEDS: Senna/Docusate Sodium 1 Tablet 2 TABLET PO ×2 (09:44→22:16)
[2025-05-01] MEDS: Insulin Glargine-YFGN 100 UNIT/ML Pen 10 UNIT SC (09:46)
--- NOTE | 2025-05-01 12:55 | NURSING ---
Supervisor [employer] Note; Activity Asset: Carley Garza has been on TCU in the past and remains independent in his choice of daily activities. He prefers to be called Zohaib. He uses his phone for everything from music, games tv and talking w/family. Staff will remind him of weekly activities and respect his right to say no.
[2025-05-01 13:52] VITALS: PULSE 76
[2025-05-01] MEDS: Tuberculin,Purif.prot.deriv. 50 TU/ML Vial 0.1 ML ID (13:53)
[2025-05-01 16:00] VITALS: BP 109/51; PULSE 80; RESP 18; TEMP 36.4; O2SAT 97
--- NOTE | 2025-05-01 16:24 | CASEMGMT ---
TCU Admit Note: SW met with pt to complete initial assessment. Introduced self and role. SW verified/updated contacts. Patient confirmed code status as DNR-CCA, no intubation. Pt?s goal is to return home with son/family. Pt BIMS 15. Pt reports no anxiety or depression. SW will continue to follow for DC planning. SHANTEL Teresa
[2025-05-01 22:12] VITALS: BP 150/61; PULSE 70
[2025-05-01 22:15] VITALS: PULSE 70
[2025-05-02] VITALS (7 sets, daily range): BP systolic 125–135; BP diastolic 55–64; PULSE 73–82; RESP 18; TEMP 36.6; O2SAT 94–95
--- NOTE | 2025-05-02 05:50 | NURSING ---
Pt states he has not had a bowel movement since admission on 04/28. Attempted to give pt magnesium citrate. Pt refused and is requesting malox instead. Written communication left for Dr. Smallwood. Pt reports he did not sleep well last night. This nurse offered to ask Dr. Smallwood for melatonin to help him sleep. Pt declined.
--- NOTE | 2025-05-02 06:47 | NURSING ---
AM accucheck- hypoglycemia this AM, asymptomatic, snack provided, recheck 117, written communication left for
[2025-05-02] MEDS: Calcium Carb/Vitamin D 1 TABLET Tablet PO ×2 (08:28→22:04)
[2025-05-02] MEDS: Senna/Docusate Sodium 1 Tablet 2 TABLET PO ×2 (08:29→22:04)
--- NOTE | 2025-05-02 09:56 | NURSING ---
Follow-up appt made for 05/14/25 @0900 w/ SPEEDY Hein. Appt given to resident. He said he will have someone to take him and he'll contact family about appt.
[2025-05-02] MEDS: Polyethylene Glycol 3350 17 GM PACKET PO ×2 (10:59→22:02)
--- NOTE | 2025-05-02 22:56 | PHA.CONS_ITS ---
Documented by User: Carmen Husain 05/02/25 23:16 TCU RX Drug Regimen Review Subjective/Objective Subjective/Objective Subjective: TCU Admission. 85 YOM presented to ER with a fall. Hospitalized for right hip fracture, underwent right direct anterior hemiarthroplasty 04/29/[address] Leggett. Admitted to TCU with debility for strengthening and rehabilitation. Objective: Allergies No Known Allergies Allergy (Verified 04/28/25 10:06) Current Medications Generic Name Dose Route Start Last Admin Trade Name Freq PRN Reason Stop Dose Admin Acetaminophen 1,000 mg 04/30/25 22:00 05/02/25 22:04 Acetaminophen 500 Mg Tablet PO 1,000 mg Q8 ARNOLDO Administration Amlodipine Besylate 10 mg 05/01/25 10:00 05/02/25 08:28 Amlodipine 10 Mg Tablet PO 10 mg DAILY ARNOLDO Administration Protocol Aspirin 81 mg 05/01/25 08:00 05/02/25 16:37 Aspirin 81 Mg Tab.Chew PO 05/30/25 23:59 81 mg BIDCM ARNOLDO Administration Atorvastatin Calcium 80 mg 04/30/25 22:00 05/02/25 22:03 Atorvastatin Calcium 80 Mg Tablet PO 80 mg QHS ARNOLDO Administration Bisacodyl 10 mg 04/30/25 17:13 Bisacodyl 10 Mg Suppository RC DAILY PRN PRN Constipation Calamine/Phenol 1 applic 05/02/25 22:00 05/02/25 22:04 Menthol/Lanolin/Calamine/Znox 113 Gm Tube TOPICAL 1 applic BID ARNOLDO Administration Protocol Calcium/Vitamin D 1 tablet 04/30/25 22:00 05/02/25 22:04 Calcium Carb/Vitamin D 1 Tablet Tablet PO 1 tablet BID ARNOLDO Administration Chlorthalidone 25 mg 05/01/25 10:00 05/02/25 08:28 Chlorthalidone 50 Mg Tablet PO 25 mg DAILY ARNOLDO Administration Ezetimibe 10 mg 05/01/25 10:00 05/02/25 08:29 Ezetimibe 10 Mg Tablet PO 10 mg DAILY ARNOLDO Administration Glimepiride 2 mg 05/01/25 08:00 05/02/25 16:37 Glimepiride 2 Mg Tablet PO 2 mg BIDCM ARNOLDO Administration Hydralazine HCl 25 mg 04/30/25 22:00 05/02/25 22:03 Hydralazine 25 Mg Tablet PO 25 mg TID ARNOLDO Administration Protocol Hydrocortisone 1 applic 05/02/25 17:27 Hydrocortisone 2.5% Crm TOPICAL BID PRN PRN RASH/TOPICAL IRRITATION Protocol Sodium Chloride 250 mls @ 15 mls/hr 04/30/25 17:14 IV .[id number] PRN Saline Flush Sodium Chloride 250 mls @ 15 mls/hr 04/30/25 17:14 IV .[id number] PRN Additional IVPB Infusion Lisinopril 40 mg 05/01/25 10:00 05/02/25 08:29 Lisinopril 40 Mg Tablet PO 40 mg DAILY ARNOLDO Administration Protocol Magnesium Citrate 300 ml 04/30/25 21:27 Magnesium Citrate 300 Ml PO DAILY PRN Constipation Ondansetron HCl 4 mg 04/30/25 17:19 Ondansetron Odt 4 Mg Tablet PO Q6H PRN PRN Nausea Oxycodone HCl 2.5 - 5 mg 04/30/25 17:19 05/02/25 11:21 Oxycodone 5 Mg Tablet PO 5 mg Q4H PRN PRN Administration see dose instruction Pantoprazole Sodium 40 mg 05/01/25 10:00 05/02/25 08:29 Pantoprazole Sodium 40 Mg Tablet PO 05/31/25 10:01 40 mg DAILY ARNOLDO Administration Polyethylene Glycol 17 gm 05/02/25 10:00 05/02/25 22:02 Polyethylene Glycol 3350 17 Gm Packet PO 17 gm BID ARNOLDO Administration Senna/Docusate Sodium 2 tablet 04/30/25 22:00 05/02/25 22:04 Senna/Docusate Sodium 1 Tablet PO 2 tablet BID ARNOLDO Administration Sodium Chloride 10 - 40 ml 04/30/25 17:14 0.9% Saline Lock 10 Ml Syringe IV UD PRN SALINE FLUSH Tuberculin PPD 0.1 ml 05/08/25 10:00 Tuberculin,Purif.Prot.Deriv. 50 Tu/Ml Vial ID 05/08/25 10:01 X1 ONE Problem List Hypokalemia (Acute) Type 2 diabetes mellitus with hyperglycemia (Acute) Essential (primary) hypertension (Acute) Closed fracture of neck of right femur (Acute) Chronic kidney disease, stage 3b (Acute) Coronary artery disease (Acute) Hyperlipidemia (Acute) Debility (Acute) Vital Signs Temp Pulse Resp BP Pulse Ox O2 Del Method 97.9 F 77 18 132/62 H 95 Room Air 05/02/25 15:49 05/02/25 22:03 05/02/25 20:00 05/02/25 21:58 05/02/25 20:00 05/02/25 20:00 Oxygen Delivery Method Room Air Weight: 83.28 kg Body Mass Index (BMI) 24.2 Sodium 138 mmol/L (133-145) 05/01/25 05:21 Potassium 3.6 mmol/L (3.3-5.1) 05/01/25 05:21 Chloride 103 mmol/L (98-108) 05/01/25 05:21 Carbon Dioxide 23.1 mmol/L (21.0-32.0) 05/01/25 05:21 Anion Gap 12 (5-15) 05/01/25 05:21 BUN 35 mg/dL (4-19) H 05/01/25 05:21 Creatinine 1.72 mg/dL (0.70-1.20) H 05/01/25 05:21 Est GFR (MDRD) Non-Af 39 (>60) L 05/01/25 05:21 BUN/Creatinine Ratio 20.1 RATIO (10-20) H 05/01/25 05:21 Glucose 166 mg/dL (70-99) H 05/01/25 05:21 Assessment/Plan: 1. Pain: acetaminophen 12228kp PO Q8, oxycodone 2.5-5mg PO Q4H PRN (2.5mg for pain 1-5 and 5mg for pain 6-10). Resident has had 5 doses for pain scores 5-10 in the hip/groin. Please continue to monitor for increased pain, PRN usage, constipation, respiratory depression, falls (BEERs) and LFTs. 2. Bowel: senna/docusate 2T PO BID, Miralax 17gm PO BID (added this AM), bisacodyl 10mg RC daily PRN constipation and magnesium citrate 300mL PO daily PRN constipation. No PRN doses given. Please continue to monitor for consti pation and PRN usage. Last documented bowel movement was 04/28/25, but Miralax was added today. 3. DVT prophylaxis: aspirin 81mg PO BID thru 05/30/25. Please continue to monitor for S/S of bleeding/DVT, bruising and hemoglobin (last 11.5g/dL). 4. GERD: pantoprazole 40mg PO daily thru 05/31/25 (while on BID aspirin). Please continue to monitor for S/S of GERD and diarrhea (BEERs). 5. Hypertension: lisinopril 40mg PO daily, chlorthalidone 25mg PO daily, amlodipine 10mg PO daily and hydralazine 25mg PO TID. Please continue to monitor BP (range 109-150/51-64), swelling, potassium (last 3.6mmol/L), cough, dizziness, renal function. 6. Hyperlipidemia: atorvastatin 80mg PO QHS and ezetimibe 10mg PO daily. Please consider ordering a lipid panel as there is no panel in the chart. Thanks. Please continue to monitor LFTs (last 12/17/24) and muscle pain. 7. Diabetes mellitus II: glimepiride 2mg PO BIDCM. Please continue to monitor hemoglobin A1c (last 04/28/25 7.2%), S/S of hypoglycemia (BEERs) and glucose (range 69-212 mg/dL). 8. Nausea: ondansetron ODT 4mg PO Q6H PRN nausea. No PRN doses given. Please continue to monitor for nausea, PRN usage. 9. Calcium deficiency: calcium/vitamin D 1T PO BID. Please continue to monitor calcium (last 8.4mg/dL). 10. Rash: hydrocortisone 2.5% cream topical BID PRN rash/topical irritation. No PRN doses given. Please continue to monitor for PRN usage and rash. Assessment/Plan for indications treated with psychotropic medications: Resident is not prescribed scheduled or prn psychotropic medications at the time of this drug regimen review. Medical chart and medication regimen reviewed. The following medication irregularities or issues were identified: 1. Atorvastatin 80mg PO QHS and ezetimibe 10mg PO daily. Please consider ordering a lipid panel as there is no panel in the chart. Thanks. Date Date of Note: 05/02/25 Documented by User: Dr. Marty Smallwood MD 05/03/25 07:26 TCU RX Drug Regimen Review Provider Comments Provider responsibility Provider Comments to Recommendations by Pharmacy Agree
[2025-05-03 05:44] VITALS: BP 130/69; PULSE 66
[2025-05-03] MEDS: Hydrocortisone 2.5% Crm 1 APPLIC TOPICAL (05:53)
--- NOTE | 2025-05-03 07:45 | RAD_ITS ---
EXAM: XR Abdomen, 1 View CLINICAL INDICATION: CONSTIPATION. TECHNIQUE: Frontal supine view of the abdomen/pelvis. COMPARISON: No relevant prior studies available. FINDINGS: GASTROINTESTINAL TRACT: Fecal retention in the colon consistent with constipation. No dilation. BONES/JOINTS: Bilateral hip replacement. No acute fracture. RAD/Abdomen Single View IMPRESSION: Fecal retention in the colon consistent with constipation. Reading Location: [facility]
[2025-05-03] MEDS: Senna/Docusate Sodium 1 Tablet 2 TABLET PO ×2 (09:52→22:19)
[2025-05-03] MEDS: Polyethylene Glycol 3350 17 GM PACKET PO ×2 (09:52→22:18)
[2025-05-03] MEDS: Calcium Carb/Vitamin D 1 TABLET Tablet PO ×2 (09:52→22:19)
[2025-05-03 10:03] VITALS: BP 128/60; PULSE 85; RESP 16; TEMP 36.6; O2SAT 95
[2025-05-03 12:54] VITALS: BP 131/60; PULSE 70
--- NOTE | 2025-05-03 14:09 | NS ---
Res complaining about limited options with diet and not happy with diet - will liberalize diet to Cho Control, No Added Salt.
[2025-05-03 22:15] VITALS: PULSE 74; RESP 16; O2SAT 92
[2025-05-03 22:18] VITALS: BP 130/63; PULSE 74
[2025-05-04] VITALS (7 sets, daily range): BP systolic 128–142; BP diastolic 53–59; PULSE 62–75; RESP 17–18; TEMP 36.6; O2SAT 92–93
--- NOTE | 2025-05-04 06:55 | NURSING ---
Patient c/o difficulty sleeping, states used melatonin at home but med was ineffective. Written communication left for Dr. Smallwood
[2025-05-04 07:18] LABS: Cholesterol 86 mg/dL (<=200); Low Density Lipoprotein Calc. 40 mg/dL; Triglycerides 95 mg/dL; Very Low Density Lipoprotein 19 mg/dL (5-40); cholesterol:hdl ratio screen 3.14
[2025-05-04] MEDS: Polyethylene Glycol 3350 17 GM PACKET PO ×2 (08:06→21:38)
[2025-05-04] MEDS: Senna/Docusate Sodium 1 Tablet 2 TABLET PO ×2 (08:07→21:38)
[2025-05-04] MEDS: Calcium Carb/Vitamin D 1 TABLET Tablet PO ×2 (08:07→21:38)
--- NOTE | 2025-05-04 18:06 | NURSING ---
notified dr rivera pt complains of difficulty sleeping- states he took melatonin at home but was ineffective- doxepin 10 mg ordered at HS
[2025-05-04] MEDS: Doxepin Hydrochloride 10 MG Capsule PO (21:38)
[2025-05-05] VITALS (7 sets, daily range): BP systolic 137–177; BP diastolic 58–72; PULSE 68–76; RESP 16; TEMP 36.8; O2SAT 93
[2025-05-05] MEDS: Polyethylene Glycol 3350 17 GM PACKET PO ×2 (08:59→21:23)
[2025-05-05] MEDS: Calcium Carb/Vitamin D 1 TABLET Tablet PO ×2 (09:00→21:22)
[2025-05-05] MEDS: Senna/Docusate Sodium 1 Tablet 2 TABLET PO ×2 (09:00→21:23)
[2025-05-05] MEDS: Doxepin Hydrochloride 10 MG Capsule PO (21:23)
[2025-05-06 06:12] VITALS: BP 115/67; PULSE 71
[2025-05-06] MEDS: Calcium Carb/Vitamin D 1 TABLET Tablet PO ×2 (08:51→22:14)
[2025-05-06] MEDS: Senna/Docusate Sodium 1 Tablet 2 TABLET PO ×2 (08:56→22:15)
[2025-05-06 09:06] VITALS: RESP 16
--- NOTE | 2025-05-06 10:39 | NURSING ---
Offered covid vaccine, VIS provided. Resident declines.
[2025-05-06 12:55] VITALS: PULSE 78
[2025-05-06 16:00] VITALS: BP 140/70; PULSE 75; RESP 16; TEMP 36.2; O2SAT 95
[2025-05-06 22:14] VITALS: BP 138/56; PULSE 73
[2025-05-06] MEDS: Polyethylene Glycol 3350 17 GM PACKET PO (22:14)
[2025-05-06] MEDS: Doxepin Hydrochloride 10 MG Capsule PO (22:15)
--- NOTE | 2025-05-06 22:25 | NURSING ---
Pt noncompliant with carb controlled diet. States daughter has been bringing him [employer] sandwiches per pt report. Pt states he is to see dietitian on 05/08/25. Surgical dressing removed per order. Steri strips observed intact. Slight redness observed to surgical site. Non pitting edema noted to hip. No heat or drainage noted upon assessment. No complaints of pain at this time. Call light within reach.
[2025-05-07 05:07] VITALS: BP 156/63; PULSE 67
[2025-05-07 09:00] VITALS: BP 148/68; PULSE 80; RESP 18; TEMP 37.1; O2SAT 97
[2025-05-07] MEDS: Calcium Carb/Vitamin D 1 TABLET Tablet PO ×2 (09:04→21:49)
[2025-05-07] MEDS: Polyethylene Glycol 3350 17 GM PACKET PO (09:07)
[2025-05-07] MEDS: Senna/Docusate Sodium 1 Tablet 2 TABLET PO ×2 (09:07→21:49)
[2025-05-07 14:09] VITALS: BP 128/60; PULSE 80
[2025-05-07 14:13] VITALS: BP 128/60; PULSE 80
--- NOTE | 2025-05-07 15:30 | CASEMGMT ---
Social Work SW completed BIMS () and PHQ-2 () for MDS assessment. Jessica Dejesus COOK RESTAURANT JUNK DEALER
[2025-05-07 17:13] VITALS: BMI 23.6
[2025-05-07 21:44] VITALS: BP 131/61; PULSE 71
[2025-05-07 21:48] VITALS: PULSE 71
[2025-05-07] MEDS: Doxepin Hydrochloride 10 MG Capsule PO (21:49)
[2025-05-08 05:44] LABS: Hematocrit 35.5 % (40-54); Hemoglobin 11.7 g/dL (13.0-16.5); Immature Granulocytes Count 0.140 X10^3/uL (0.0-0.0); Mean Corp Hgb Conc 33.0 g/dL (32-36); Mean Corpuscular Volume 92.9 fL (80-94); Mean Platelet Vol. 9.1 fl (6.2-12.0); NRBC Flagged by Analyzer 0 % (0-5); Platelet Count 425 K/mm3 (150-450); RBC Distribution Width CV 12.7 % (11.6-14.6); RBC Distribution Width SD 43.6 fl (35.1-43.9); Red Blood Count 3.82 M/mm3 (4.6-6.2); White Blood Count 12.2 K/mm3 (4.4-11.0)
[2025-05-08 05:45] VITALS: BP 147/61; PULSE 65
[2025-05-08 05:47] VITALS: PULSE 65
[2025-05-08 06:22] LABS: Anion Gap 10 (5-15); BUN 33 mg/dL (4-19); BUN/Creat Ratio 22.2 RATIO (10-20); Calcium,Total 9.2 mg/dL (7.6-11.0); Carbon Dioxide 26.3 mmol/L (21.0-32.0); Chloride 106 mmol/L (98-108); Estimated Creatinine Clearance 41.43 ml/min (50-250); Glucose 112 mg/dL (70-99); Potassium 4.0 mmol/L (3.3-5.1)
--- NOTE | 2025-05-08 08:52 | NURSING ---
Car Wiper Note; MDS for 05/07/2025 Complete
[2025-05-08 09:04] VITALS: BP 133/53; PULSE 81; RESP 16; TEMP 36.7; O2SAT 94
[2025-05-08] MEDS: Calcium Carb/Vitamin D 1 TABLET Tablet PO ×2 (09:05→23:03)
[2025-05-08] MEDS: Senna/Docusate Sodium 1 Tablet 2 TABLET PO (09:06)
[2025-05-08] MEDS: Tuberculin,Purif.prot.deriv. 50 TU/ML Vial 0.1 ML ID (10:16)
--- NOTE | 2025-05-08 11:31 | CASEMGMT ---
Social Work IDT met with pt and two dtrs for care plan meeting. Discussed patient's progress in PT/OT/SN/RDN. Educated to [facility] with [facility] 05/08 and approved continued stay with [employer] 05/10, anticipated DC 05/13. Provided pt/family with written communication of insurance process and copay coverage during stay. SW inquired about concerns or needs at DC. Pt/family denied concerns. Therapy requesting FWW. SW can coordinate. SW inquired about HHC vs OP therapy. Pt prefers HHC. SW provided list of skilled HHC agencies within geographical area, [place] with insurance, that include quality and resource data via CarePort guide. Pt declined and requested to use [facility] whom pt used prior. SW educated HHC agency will contact pt for SOC date date, but typically 2-3 days after DC, pending PCP signing orders. Pt expressed understanding. SW will continue to follow to plan for DC. Jessica Dejesus CATERING ASSISTANT JACQUARD LOOM CARD CHANGER
[2025-05-08 12:15] VITALS: PULSE 81; RESP 16; O2SAT 96
[2025-05-08 13:18] VITALS: BP 139/58; PULSE 74
[2025-05-08] MEDS: Doxepin Hydrochloride 10 MG Capsule PO (23:03)
[2025-05-08 23:04] VITALS: BP 130/60; PULSE 72
[2025-05-09 06:05] VITALS: BP 147/64; PULSE 77
[2025-05-09 08:57] VITALS: BP 114/59; PULSE 75; RESP 18; TEMP 37.1; O2SAT 98
[2025-05-09] MEDS: Calcium Carb/Vitamin D 1 TABLET Tablet PO ×2 (09:00→22:29)
[2025-05-09] MEDS: Senna/Docusate Sodium 1 Tablet 2 TABLET PO (09:00)
[2025-05-09 13:08] VITALS: BP 127/69; PULSE 79
--- NOTE | 2025-05-09 16:21 | DS.PCM_ITS ---
Providers Date of Admission: 04/30/25 Primary Care Physician: Dr. Jose Clarke DO Reason For Visit: FALL/ RT HIP FRACTURE Diagnosis Discharge Diagnosis (1) Debility: Status: Acute Code(s): R53.81 - Other malaise (2) Closed fracture of neck of right femur: Status: Inactive Code(s): S72.001A - Fracture of unspecified part of neck of right femur, initial encounter for closed fracture (3) Essential (primary) hypertension: Status: Acute Code(s): I10 - Essential (primary) hypertension (4) Coronary artery disease: Status: Acute Code(s): I25.10 - Atherosclerotic heart disease of [place] coronary artery without angina pectoris (5) Hyperlipidemia: Status: Acute Code(s): E78.5 - Hyperlipidemia, unspecified (6) Type 2 diabetes mellitus with hyperglycemia: Status: Acute Code(s): E11.65 - Type 2 diabetes mellitus with hyperglycemia (7) Hypokalemia: Status: Acute Code(s): E87.6 - Hypokalemia (8) Chronic kidney disease, stage 3b: Status: Acute Code(s): N18.32 - Chronic kidney disease, stage 3b Plan 85 year old male with below past medical history hospitalized for right hip fracture, underwent right direct anterior hemiarthroplasty 04/29/[address] Leggett, admitted to TCU with debility, here for rehabilitation, strengthening, prior to discharge home with family. * Debility - PT/OT. * Pain - Tylenol 1000mg q8, Oxycodone 2.5mg - 5mg q4 prn. * Bowel - Senna/colace 2 tablets bid, Dulcolax 10mg pr daily prn, Magnesium citrate 300mL daily prn. * Adult immunization - Administer pneumonia vaccine, covid vaccine, flu vaccine as appropriate. * DVT prophylaxis - Aspirin 81mg bid thru 05/30/2025. * Hypertension - Lisinopril 40mg daily, Chlorthalidone 25m gdaily, Amlodipine 10mg daily, Hydralazine 25mg tid. * Hyperlipidemia - Atorvastatin 80mg qhs, Zetia 10mg daily. * Calcium deficiency - Calcium D 1 tablet bid, * Diabetes Mellitus II - Glimepiride 2mg bid, Glargine 10 units daily. * Nausea - Zofran odt 4mg q6 prn,. * GERD - Pantoprazole 40mg daily thru 05/31/2025. Medications at Discharge Home Medications lisinopril 40 mg tablet 40 mg PO DAILY BP 06/13/20 glimepiride 1 mg tablet 2 mg PO BID Diabetes 04/23/21 atorvastatin 80 mg tablet 80 mg PO QHS HYPERLIPIDEMIA 08/28/22 amlodipine 10 mg tablet 10 mg PO DAILY blood pressure 30 days #30 tabs 09/08/22 chlorthalidone 25 mg tablet 25 mg PO DAILY htn 12/17/24 ezetimibe 10 mg tablet 10 mg PO DAILY cholesterol 12/17/24 ondansetron 4 mg disintegrating tablet 4 mg PO Q6H PRN PRN Nausea #15 tabs 12/17/24 calcium 500 mg (as carbonate)-vitamin D3 10 mcg (400 unit) tablet (Calcium 500 + D) 1 tab PO BID supplement #1 TAB 04/30/25 hydralazine 25 mg tablet 25 mg PO TID blood pressure 04/30/25 acetaminophen 500 mg tablet 1,000 mg (2 x 500 mg) PO Q8 #0 tabs 05/09/25 aspirin 81 mg chewable tablet 81 mg PO BIDCM 17 days #0 tabs 05/09/25 oxycodone 5 mg tablet 2.5 - 5 mg (0.5 - 1 x 5 mg) PO Q4H PRN PRN see dose instruction 7 days #42 tabs 05/09/25 pantoprazole 40 mg tablet,delayed release 40 mg PO DAILY 30 days #30 tabs 05/09/25 sennosides 8.6 mg-docusate sodium 50 mg tablet (Stimulant Laxative Plus) 2 tab PO BID PRN Constipation 30 days #120 tabs 05/09/25 Hospital Course Operations None Procedures None Summary of Care Provided Minutes Spent on Discharge: 35 Hospital Course: 85 year old male with below past medical history hospitalized for right hip fracture, underwent right direct anterior hemiarthroplasty 04/29/[address] Leggett, admitted to TCU with debility, here for rehabilitation, strengthening, prior to discharge home with family. Discharge home alone 05/13/2025, [facility] PT/OT/SN, FWW. FWW: Patient is unsafe to use a cane and requires a walker for ambulation in the home and the community. Physical Exam Const alert General Appearance: cooperative HEENT normocephalic Eyes PERRL and EOMs intact bilaterally Neck supple, no JVD and no carotid bruits Resp normal respiratory effort, normal air movement and clear to auscultation bilaterally Cardio regular rate and regular rhythm GI normal to inspection, nondistended, normoactive bowel sounds, non-tender and non-distended Extremity normal capillary refill General Extremity: Negative for edema Skin no rashes or lesions noted General Skin Exam: no breakdown Psych affect normal Appearance: appropriate Weight / BMI Weight Weight: 80.649 kg Body Mass Index (BMI) 23.6 ABG / Lab / Microbiology Data 05/08/25 05:13 05/08/25 05:13 Laboratory: Laboratory Results - last 24 hr 05/08/25 21:06: POC Glucose 176 H 05/09/25 06:22: POC Glucose 116 H D/C Instructions Discharge Activity: Return to Normal Activity Weight Bearing Status: Weight bearing as tolerated Call your doctor if you observe: Fever of 101 or Higher, Inability to urinate, Inability to have a bowel movement, Shortness of breath, Dizziness, Fainting spells, Swelling in the ankles, Chest pain and Uncontrolled pain DC O2, CPAP, BIPAP Needs Home O2 Discharge instructions: No Additional Instructions: Discharge home alone 05/13/2025, [facility] PT/OT/SN, FWW. FWW: Patient is unsafe to use a cane and requires a walker for ambulation in the home and the community. Please Follow Up With: Dr. Leggett (will see [place] RUFF) When: As scheduled. Meaningful Use Info Meaningful Use Meaningful Use Diagnoses (Choose all that apply): None applicable Discharge Plan Admission Admit Date/Time: 04/30/25 16:45 Primary Reason for Your Visit: Debility. Attending Provider: Marty Smallwood Chi Primary Care Provider: Jose Clarke Instructions Additional Instructions / Restrictions: Discharge home alone 05/13/2025, [facility] PT/OT/SN, FWW. FWW: Patient is unsafe to use a cane and requires a walker for ambulation in the home and the community. Discharge Orders/Prescriptions Prescriptions: New acetaminophen 500 mg Tablet 1,000 mg PO Q8 Qty: 0 0RF aspirin 81 mg Tablet,Chewable 81 mg PO BIDCM 17 Days Qty: 0 0RF sennosides-docusate sodium [Stimulant Laxative Plus] 8.6-50 mg Tablet 2 tab PO BID PRN (Reason: Constipation) 30 Days Qty: 120 0RF pantoprazole 40 mg Tablet,Delayed Release (Dr/Ec) 40 mg PO DAILY 30 Days Qty: 30 0RF oxycodone 5 mg Tablet 2.5 - 5 mg PO Q4H PRN PRN (Reason: see dose instruction) 7 Days Qty: 42 0RF Continued lisinopril 40 MG tablet 40 mg PO DAILY glimepiride 1 mg tablet 2 mg PO BID atorvastatin 80 mg tablet 80 mg PO QHS amlodipine 10 mg Tablet 10 mg PO DAILY 30 Days Qty: 30 0RF ezetimibe 10 mg tablet 10 mg PO DAILY chlorthalidone 25 mg tablet 25 mg PO DAILY ondansetron 4 mg tablet,disintegrating 4 mg PO Q6H PRN PRN (Reason: Nausea) Qty: 15 0RF calcium carbonate-vitamin D3 [Calcium 500 + D] 500 mg-10 mcg (400 unit) tablet 1 tab PO BID Qty: 1 0RF hydralazine 25 mg tablet 25 mg PO TID Discontinued hydralazine 100 MG tablet 25 mg PO TID acetaminophen 500 mg Tablet 1,000 mg PO Q8 Qty: 0 0RF insulin glargine [Lantus Solostar U-100 Insulin] 100 unit/mL (3 mL) insulin pen 10 unit SUBCUT DAILY Patient Comments: BEGIN 10 UNITS SUBCUTANEOUSLY EACH DAY AND INCREASE BY 1 UNIT EVERY OTHER DAY IF FASTING GLUCOSE LEVEL OVER 140. THEN MAINTAIN DOSE TO KEEP GLUCOSE AROUND 140 OR LOWER aspirin 81 mg Tablet,Chewable 81 mg PO BIDCM Qty: 1 0RF oxycodone 5 mg Tablet 2.5 - 5 mg PO Q4H PRN PRN (Reason: Pain Score 4-10) 2 Days Qty: 8 0RF insulin lispro [Humalog KwikPen Insulin] 100 unit/mL Insulin Pen See Protocol subcut ACHS Qty: 1 0RF Protocol: 4. Sliding Scale Insulin High-Med Dosing Condition: 150-199 mg/dl = 2 units Condition: 200-259 mg/dl = 4 units Condition: 260-324 mg/dl = 6 units Condition: 325-374 mg/dl = 8 units Condition: 375-409 mg/dl = 10 units Condition: 410-449 mg/dl = 11 units Condition: Greater than 449 call physician Protocol Text: Suggested for: - Patients on Total Daily Insulin Dose of 56-80 units - Patient who are known to be insulin resistant or septic HIGH MEDIUM DOSING ALGORITHM pantoprazole [Protonix] 40 mg tablet,delayed release (DR/EC) 40 mg PO DAILY Qty: 30 0RF Rx Instructions: Keep patient on this medication while he is on 81 mg aspirin twice a day for DVT prophylaxis-typically x 1 month Referrals / Follow Up: Jose Clarke DO [Primary Care Provider] - Disposition Disposition (needs filled in before D/C Order can be placed): Home Health Service
--- NOTE | 2025-05-09 16:25 | CASEMGMT ---
Social Work Nursing notified this worker that pt's brother this morning. - SW spoke with pt at bedside to offer condolences and support. Pt shared brother was 93 years old, living in [place] with his other brother, and was at peace with brother passing. Pt shared the is 05/13. SW discussed therapy schedule and MAYKEL. After specifics, SW offered for pt to DC prior to the and pt could return home at the end of the day. Explained insurance indicated issuing a [facility]OM[facility] with [employer] 05/10. Pt agreed and will speak with dtr. SW confirmed pt's wishes to have skilled HHC with [facility], discussed prior. Pt confirmed and the need for the FWW. SW to coordinate. Pt appreciative. - PALLAVI phoned referral to [facility] for PT/OT/PALLAVI Sent referral to [facility] via [facility]Port. Plan: DC home 05/13, [facility] PT/OT/PALLAVI Dejesus MSW SENIOR PRODUCT CONSULTANT
[2025-05-09 22:00] VITALS: PULSE 68; RESP 16
[2025-05-09] MEDS: Doxepin Hydrochloride 10 MG Capsule PO (22:29)
[2025-05-09 22:30] VITALS: BP 145/67; PULSE 68
[2025-05-10 06:30] VITALS: BP 146/66; PULSE 66; PULSE 73; O2SAT 94
[2025-05-10] MEDS: Senna/Docusate Sodium 1 Tablet 2 TABLET PO (07:40)
[2025-05-10] MEDS: Calcium Carb/Vitamin D 1 TABLET Tablet PO ×2 (07:40→20:33)
[2025-05-10 10:26] VITALS: BP 154/64; PULSE 70; RESP 16; TEMP 37; O2SAT 97
[2025-05-10 13:52] VITALS: BP 137/66; PULSE 71
--- NOTE | 2025-05-10 15:25 | CASEMGMT ---
Social Work SW completed BIMS () and PHQ-2 () for MDS assessment. Jessica Dejesus OUTDOOR STUDIES DIRECTOR KEYBOARD SPECIALIST
[2025-05-10 19:38] VITALS: BP 149/74; PULSE 73
[2025-05-10 20:32] VITALS: PULSE 73
[2025-05-10] MEDS: Doxepin Hydrochloride 10 MG Capsule PO (20:33)
[2025-05-11 05:30] VITALS: BP 149/59; PULSE 69
[2025-05-11 05:31] VITALS: PULSE 69
[2025-05-11] MEDS: Calcium Carb/Vitamin D 1 TABLET Tablet PO ×2 (08:18→21:02)
[2025-05-11] MEDS: Senna/Docusate Sodium 1 Tablet 2 TABLET PO (08:21)
[2025-05-11 09:00] VITALS: BP 128/63; PULSE 82; RESP 16; TEMP 36.4; O2SAT 96
[2025-05-11 15:06] VITALS: BP 132/72; PULSE 91
[2025-05-11 20:07] VITALS: PULSE 76; RESP 18; O2SAT 97
[2025-05-11 21:02] VITALS: BP 137/58; PULSE 71
[2025-05-11] MEDS: Doxepin Hydrochloride 10 MG Capsule PO (21:03)
[2025-05-12 04:50] VITALS: PULSE 74; RESP 16; O2SAT 96
[2025-05-12 06:09] VITALS: BP 155/66; PULSE 70
[2025-05-12] MEDS: Calcium Carb/Vitamin D 1 TABLET Tablet PO ×2 (08:40→22:09)
[2025-05-12 11:06] VITALS: BP 146/62; PULSE 73; RESP 73; TEMP 36.6; O2SAT 94
[2025-05-12 12:59] VITALS: BP 136/64; PULSE 71
[2025-05-12 22:06] VITALS: BP 158/63; PULSE 66
[2025-05-12 22:08] VITALS: PULSE 71
[2025-05-12] MEDS: Doxepin Hydrochloride 10 MG Capsule PO (22:09)
[2025-05-13 05:08] VITALS: BP 145/72; PULSE 73
[2025-05-13 05:11] VITALS: PULSE 73
[2025-05-13 05:23] VITALS: PULSE 73; RESP 16; O2SAT 95
--- NOTE | 2025-05-13 06:47 | MDS.RN ---
Information for the MDS was obtained from review of the clinical record, interview of resident, staff, and direct observation of resident?s care.
[2025-05-13] MEDS: Calcium Carb/Vitamin D 1 TABLET Tablet PO (08:59)
[2025-05-13 09:01] VITALS: PULSE 64
== END 2025-05-13 11:40 | disposition home health service (06) | DRG 561 ==
PROVIDERS: Admitting Provider Family Medicine Geriatric Medicine; PCP Family Medicine; Referring Provider Family Medicine Geriatric Medicine; Visit Provider Family Medicine Geriatric Medicine
DX: S72.001D Fracture of unspecified part of neck of right femur, subsequent encounter for closed fracture with routine healing (principal); E11.22 Type 2 diabetes mellitus with diabetic chronic kidney disease; N18.32 Chronic kidney disease, stage 3b; I12.9 Hypertensive chronic kidney disease with stage 1 through stage 4 chronic kidney disease, or unspecified chronic kidney disease; E11.65 Type 2 diabetes mellitus with hyperglycemia; K21.9 Gastro-esophageal reflux disease without esophagitis; Z79.4 Long term (current) use of insulin; E87.6 Hypokalemia; E78.5 Hyperlipidemia, unspecified; I25.10 Atherosclerotic heart disease of native coronary artery without angina pectoris; W10.1XXD Fall (on)(from) sidewalk curb, subsequent encounter; Z79.899 Other long term (current) drug therapy; Z95.5 Presence of coronary angioplasty implant and graft; Z79.82 Long term (current) use of aspirin; Z79.84 Long term (current) use of oral hypoglycemic drugs; G47.00 Insomnia, unspecified; Z96.642 Presence of left artificial hip joint
CPT/HCPCS: 36415; 74018; 80048; 80061; 82962; 85025; 97110; 97116; 97162; 97166; 97530; 97535; 97802

== ENCOUNTER → 2025-10-08 | Outpatient (CLI) | payer MEDICARE, SELFPAY ==
--- NOTE | 2025-10-08 08:57 | RAD_ITS ---
PROCEDURE: CHEST PA AND LATERAL 10/08/2025 REASON FOR EXAM: SOB, PRE-OP TECHNIQUE: Procedure Code: RADCXR Modality: DX Procedure: CHEST PA AND LATERAL COMPARISON: April 28, 2025 FINDINGS: There is a left-sided cardiac device with wires in position. Heart size and mediastinal configuration are within normal limits. There is no focal infiltrate or consolidation. There is no pneumothorax or effusion. Aortic calcifications are noted. There is no acute bony abnormality. RAD/Chest PA and Lateral IMPRESSION: No acute process is identified in the chest. Reading Location: [facility]
[2025-10-08 09:12] LABS: Red Blood Cells-Urine 0 SEEN /hpf (0-5)
[2025-10-08 09:38] LABS: Hematocrit 42.1 % (40-54); Hemoglobin 13.6 g/dL (13.0-16.5); Mean Corp Hgb Conc 32.3 g/dL (32-36); Mean Corpuscular Volume 93.1 fL (80-94); Mean Platelet Vol. 9.4 fl (6.2-12.0); Platelet Count 454 K/mm3 (150-450); RBC Distribution Width CV 12.8 % (11.6-14.6); RBC Distribution Width SD 43.7 fl (35.1-43.9); Red Blood Count 4.52 M/mm3 (4.6-6.2); White Blood Count 12.2 K/mm3 (4.4-11.0)
[2025-10-08 09:52] LABS: Color, Urine Yellow (Yellow); Glucose, Dipstick Normal (Normal); Ketone-Dipstick Negative (Negative); Leukocyte Esterase-Dipstick Negative /ul (Negative); Nitrite-Dipstick Negative (Negative); Occult Blood-Urine Negative /ul (Negative); Protein-Dipstick 30 mg/dl (Negative); Specific Gravity, Urine 1.015 (1.002-1.030); Urine Bilirubin Dipstick Negative (Negative)
[2025-10-08 09:57] LABS: Prothrombin Time (Protime)PT. 13.2 SECONDS (11.7-14.9)
[2025-10-08 10:07] LABS: Mucous, Urine 1+ /hpf (<or=2+); Squamous Epithelial Cells - UA 0-5 SEEN /hpf (0-5)
[2025-10-08 10:09] LABS: Anion Gap 12 (5-15); BUN 26 mg/dL (4-19); BUN/Creat Ratio 18.0 RATIO (10-20); Calcium,Total 9.7 mg/dL (7.6-11.0); Carbon Dioxide 25.6 mmol/L (21.0-32.0); Chloride 103 mmol/L (98-108); Glucose 223 mg/dL (70-99); Potassium 3.6 mmol/L (3.3-5.1)
== END | disposition home or self-care (01) ==
LOC: RAD 08:56
PROVIDERS: PCP Internal Medicine Cardiovascular Disease; Referring Provider Student in an Organized Health Care Education/Training Program; Visit Provider Student in an Organized Health Care Education/Training Program
DX: Z01.818 Encounter for other preprocedural examination (principal); Z95.0 Presence of cardiac pacemaker; I10 Essential (primary) hypertension; I25.10 Atherosclerotic heart disease of native coronary artery without angina pectoris
CPT/HCPCS: 36415; 71046; 80048; 81001; 85027; 85610